=== PATIENT | female | born 1960 | race American Indian/Alaskan Native ===

== ENCOUNTER 2017-01-10 19:59 | Observation (INO) | payer MEDICARE, MEDICAID ==
[2017-01-10 19:59] VITALS: BMI 42.4
--- NOTE | 2017-01-10 20:34 | C.PDOC ---
History Of Present Illness Patient presents to the ED with complaints of chest pain and palpitations while watching TV. Patient atkinson a history of two ablations and cardiac catheter. Patient describes similar episode in the past and denies fever, chills, nausea, or diarrhea. Time Seen by Provider: 01/10/17 20:33 Chief Complaint (Nursing): Chest Pain History Per: Patient History/Exam Limitations: no limitations Onset/Duration Of Symptoms: Hrs Current Symptoms Are (Timing): Still Present Severity: Mild Pain Scale Rating Of: 4 Quality: "Pain" Associated Symptoms: denies: Nausea Alleviating Factors: None Recent travel outside of the [place]: No Additional History Per: Family, Prior Records Past Medical History Reviewed: Historical Data, Nursing Documentation, Vital Signs Vital Signs: Last Vital Signs Temp 98.2 F 01/10/17 20:22 Pulse 92 H 01/10/17 20:57 Resp 16 01/10/17 20:22 BP 108/69 01/10/17 20:22 Pulse Ox 97 01/10/17 21:02 - Medical History PMH: Anxiety, Arthritis (hands), CAD, Cardia Arrhythmia, CHF, COPD, Depression, Diabetes (hypoglycemia), Gastritis, Gall Bladder Disease, HTN, Hypercholesterolemia Surgical History: Cholecystectomy, Coronary Stent (x2) Family History: States: No Known Family Hx - Social History Hx Tobacco Use: Yes (QUIT) Hx Alcohol Use: No Hx Substance Use: No - Immunization History Hx Tetanus Toxoid Vaccination: No Hx Influenza Vaccination: No Hx Pneumococcal Vaccination: No Review Of Systems Constitutional: Negative for: Fever, Chills Eyes: Negative for: Vision Change ENT: Negative for: Throat Pain Cardiovascular: Positive for: Chest Pain, Palpitations Respiratory: Negative for: Cough, Shortness of Breath Gastrointestinal: Negative for: Vomiting, Abdominal Pain, Diarrhea Genitourinary: Negative for: Dysuria Musculoskeletal: Negative for: Back Pain Skin: Negative for: Rash, Lesions, Jaundice, Bruising Neurological: Negative for: Weakness Psych: Negative for: Anxiety Physical Exam - Physical Exam Appears: Non-toxic, No Acute Distress, Other (Patient is slightly obese) Skin: Warm, Dry Head: Atraumatic Eye(s): bilateral: Normal Inspection Oral Mucosa: Moist Neck: Supple Chest: Symmetrical Cardiovascular: Rhythm Regular Respiratory: No Rales, No Rhonchi, No Stridor, No Wheezing Gastrointestinal/Abdominal: Soft, No Tenderness, No Distention, No Guarding, No Rebound Back: Normal Inspection Extremity: Normal ROM, No Tenderness Extremity: Bilateral: Atraumatic, Normal Color And Temperature, Normal ROM Neurological/Psych: Oriented x3, Normal Speech, Normal Cognition Gait: Steady ED Course And Treatment - Laboratory Results Result Diagrams: 01/10/17 20:48 01/10/17 20:48 ECG: Interpreted By Me, Viewed By Me ECG Rhythm: Sinus Rhythm (85), Nonspecific Changes O2 Sat by Pulse Oximetry: 97 Pulse Ox Interpretation: Normal - Radiology CXR: Interpreted by Me, Viewed By Me CXR Interpretation: Yes: Other (unchanged from 10/10). No: Infiltrates, Fracture , Pnemothorax Disposition Discussed With Dr.: Miller Reddy Jr. Comment: accepted the pt on his service and took over the care at 9:29 PM Doctor Will See Patient In The: ED Counseled Patient/Family Regarding: Studies Performed, Diagnosis - Disposition Disposition: HOSPITALIZED Disposition Time: 20:34 Condition: FAIR - POA Present On Arrival: None - Clinical Impression Clinical Impression: Chest pain, Palpitations - Scribe Statement The provider has reviewed the documentation as recorded by the Scribe Melania Doherty All medical record entries made by the Scribe were at my direction and personally dictated by me. I have reviewed the chart and agree that the record accurately reflects my personal performance of the history, physical exam, medical decision making, and the department course for this patient. I have also personally directed, reviewed, and agree with the discharge instructions and disposition. Decision To Admit - Pt Status Changed To: Hospital Disposition Of: Observation - . Bed Request Type: Telemetry Admitting Physician: Miller Reddy Jr. Patient Diagnosis: Chest pain, Palpitations
[2017-01-10 20:57] LABS: BASO # 0.1 K/uL (0.0-0.2); BASO % 0.8 % (0.0-2.0); EOS # 0.3 K/uL (0.0-0.7); EOS % 3.6 % (0.0-4.0); HEMATOCRIT 28.8 % (34.0-47.0); LYMPH # 2.6 K/uL (1.0-4.3); MEAN CORPUSCULAR HEMOGLOBIN 24.6 pg (27.0-31.0); MEAN CORPUSCULAR HGB CONC 31.2 g/dL (33.0-37.0); MEAN PLATELET VOLUME 9.5 fL (7.2-11.7); MONO # 0.4 K/uL (0.0-0.8); MONO % 5.9 % (0.0-10.0); NRBC % 0.1 % (0.0-2.0); RED CELL DISTRIBUTION WIDTH 15.9 % (11.5-14.5); WHITE BLOOD COUNT 7.6 K/uL (4.8-10.8)
[2017-01-10 21:02] LABS: CHLORIDE 100 mmol/L (98-107); POTASSIUM 3.6 mmol/L (3.6-5.2); SODIUM 138 mmol/L (132-148)
[2017-01-10] MEDS ORDERED: Aspirin 325 mg EC Tablets PO ONE (21:02)
[2017-01-10 21:04] LABS: BILIRUBIN,TOTAL 0.6 mg/dL (0.2-1.3); CARBON DIOXIDE 25 mmol/L (22-30); GFR AFRICAN-AMERICAN > 60
[2017-01-10 21:05] LABS: ALB/GLOB RATIO 1.1 (1.0-2.1); ALKALINE PHOSPHATASE 82 U/L (38-126); ALT/SGPT 27 U/L (9-52); AST/SGOT 19 U/L (14-36); BLOOD UREA NITROGEN 16 mg/dL (7-17); CALCIUM 9.3 mg/dl (8.6-10.4); GLUCOSE,RANDOM 106 mg/dL (65-105); TOTAL PROTEIN 7.7 g/dL (6.3-8.3)
[2017-01-10 21:48] LABS: INR 1.1
[2017-01-10 21:58] LABS: THYROID STIMULATING HORMONE 2.33 mIU/L (0.46-4.68)
[2017-01-10] MEDS ORDERED: Albuterol HFA 90 mcg/actuation (8 g) IH PRN (22:30)
--- NOTE | 2017-01-11 00:17 | CP.PCM.HP ---
History of Present Illness - History of Present Illness History of Present Illness: cc: chest pain and palpitations HPI: Patient is a 56yo female with extensive past medical history that includes afib s/p 2 ablations, COPD, hypertension, DM type 2, asthma and anxiety who presents to the ED with complaint of chest pain and palpitations. She states she was sitting up, watching TV when she developed a sharp substernal and right sided chest pain that lasted only a moment. She reports it did not radiated into the arm or neck. She developed momentary SOB and palpitations so she called 911. In the ambulance she was told she was tachycardic. On evaluation, the chest pain had resolved; however, the patient appeared anxious and stated she was not going to cry. She reports being afraid and tired of feeling like this. She has been watching her diet and trying to exercise more. She has not been lifting heavy objects. When palpating on her chest, she reports similar pains. She denied focal weakness, numbness, tingling, dysuria, frequency, urgency, fever, chills, cough. PMD: Dr. Reddy PMHx: As above PSHx: Cholecystectomy, Tubal ligation, Cardiac Cath, 2 cardiac ablations Family Hx: Noncontributory Social Hx: Former smoker (1ppd for approximately 30yrs, quit in 2007); Denies alcohol and illicit drug use Allergies: NKDA P Present on Admission - Present on Admission Any Indicators Present on Admission: No Review of Systems - Constitutional Constitutional: absent: Chills, Fever, Weakness - EENT Eyes: absent: Change in Vision, Diplopia Ears: absent: Decreased Hearing, Tinnitus Nose/Mouth/Throat: absent: Dysphagia, Hoarsness, Odynophagia - Cardiovascular Cardiovascular: Chest Pain, Palpitations. absent: Dyspnea, Edema, Pain Radiating to Arm/Neck/Jaw - Respiratory Respiratory: absent: Cough, Dyspnea - Gastrointestinal Gastrointestinal: Constipation. absent: Diarrhea, Nausea, Vomiting - Genitourinary Genitourinary: absent: Dysuria - Reproductive: Female Reproductive:Female: Post Menopausal - Menstruation Menstruation: Post Menopausal - Musculoskeletal Musculoskeletal: absent: Muscle Weakness, Neck Pain, Numbness, Tingling - Integumentary Integumentary: absent: Lesions, Rash, Wounds - Neurological Neurological: absent: Dizziness, Numbness, Weakness - Psychiatric Psychiatric: Anxiety. absent: Depression - Endocrine Endocrine: Fatigue Past Patient History - Infectious Disease Hx of Infectious Diseases: None - Tetanus Immunizations Tetanus Immunization: Unknown - Past Medical History & Family History Past Medical History?: Yes - Past Social History Smoking Status: Former Smoker Alcohol: None Drugs: Denies Home Situation {Lives}: With Family - CARDIAC Hx Cardia Arrhythmia: Yes Hx Congestive Heart Failure: Yes Hx Hypercholesterolemia: Yes Hx Hypertension: Yes - PULMONARY Hx Chronic Obstructive Pulmonary Disease (COPD): Yes - NEUROLOGICAL HX Cerebrovascular Accident: Yes - HEENT Hx HEENT Problems: No - RENAL Hx Chronic Kidney Disease: No - ENDOCRINE/METABOLIC Hx Endocrine Disorders: Yes Hx Diabetes Mellitus Type 1: Yes - HEMATOLOGICAL/ONCOLOGICAL Hx Blood Disorders: No - INTEGUMENTARY Hx Eczema: Yes - MUSCULOSKELETAL/RHEUMATOLOGICAL Hx Arthritis: Yes (hands) - GASTROINTESTINAL Hx Gall Bladder Disease: Yes Hx Gastritis: Yes - GENITOURINARY/GYNECOLOGICAL Hx Genitourinary Disorders: No - PSYCHIATRIC Hx Anxiety: Yes Hx Depression: Yes Hx Substance Use: No - SURGICAL HISTORY Hx Cholecystectomy: Yes Hx Coronary Stent: Yes (x2) - ANESTHESIA Hx Anesthesia: Yes Hx Anesthesia Reactions: No Meds Allergies/Adverse Reactions: Allergies Allergy/AdvReac Type Severity Reaction Status Date / Time Flu vaccine Allergy Uncoded 01/10/17 20:32 pnuemonia vaccine Allergy Uncoded 01/10/17 20:32 Physical Exam - Constitutional Appears: Non-toxic, No Acute Distress, Other (anxious) - Head Exam Head Exam: ATRAUMATIC, NORMOCEPHALIC - Eye Exam Eye Exam: EOMI, Normal appearance, PERRL Pupil Exam: NORMAL ACCOMODATION, PERRL - ENT Exam ENT Exam: Mucous Membranes Moist, Normal Oropharynx - Neck Exam Neck exam: Positive for: Normal Inspection. Negative for: Tenderness, Thyromegaly - Respiratory Exam Respiratory Exam: Chest Wall Tenderness (right side of sternum), Clear to Auscultation Bilateral, NORMAL BREATHING PATTERN. absent: Rales, Rhonchi, Wheezes - Cardiovascular Exam Cardiovascular Exam: REGULAR RHYTHM, +S1, +S2. absent: Gallop, Rubs, Systolic Murmur - GI/Abdominal Exam GI & Abdominal Exam: Soft. absent: Normal Bowel Sounds, Tenderness - Extremities Exam Extremities exam: Positive for: normal capillary refill, normal inspection, pedal pulses present. Negative for: pedal edema, tenderness - Back Exam Back exam: NORMAL INSPECTION. absent: rash noted, tenderness - Neurological Exam Neurological exam: Alert, CN II-XII Intact, Oriented x3 - Psychiatric Exam Psychiatric exam: Anxious - Skin Skin Exam: Dry, Intact, Normal Color, Warm Results - Vital Signs Recent Vital Signs: Last Vital Signs Temp 97.7 F 01/10/17 22:38 Pulse 77 01/10/17 22:38 Resp 16 01/10/17 22:38 BP 014/61 L 01/10/17 22:38 Pulse Ox 97 01/10/17 22:38 - Labs Result Diagrams: 01/10/17 20:48 01/10/17 20:48 Labs: Laboratory Results - last 24 hr 01/10/17 21:30 PT 12.8 H INR 1.1 APTT 28 Assessment & Plan - Assessment and Plan (Free Text) Assessment: 56yo female with history of DM2, COPD, Asthma, afib presents c/o chest pain and palpitations. Plan: Chest Pain -EKG normal sinus rhythm 85 bpm, old septal infarct, no acute ST-T wave changes n -Troponin negative -TSH wnl -CXR revealed no active disease f/u official report -F/U lipid profile and repeat troponins -Continue ASA -Continue flecainaide -Continue Diltiazem -Place on tele -F/U repeat EKG Diabetes mellitus type 2 -Diet controlled; placed on heart healthy, low carb diet -Fingersticks ACHS -Hgb 10-18-16 5.4 Hx of COPD/Asthma -Continue albuterol PRN -Continue singulair -Continue advair PRN GERD -Continue protonix/sucralfate Anxiety -Continue Clonazepam/Klonopin -PRN Ativan GI/DVT Prophylaxis -Protonix/Lovenox -SCD's
[2017-01-11] MEDS: POLYETHYLENE GLYCOL 3350 17 GM/Dose PACKET PO SCH ×2 (01:00→09:37)
--- NOTE | 2017-01-11 07:24 | RAD ---
HISTORY: r/o infiltrate COMPARISON: 10/17/2016 FINDINGS: LUNGS: Mild venous congestion. Right hilar prominence. PLEURA: No significant pleural effusion identified, no pneumothorax apparent. CARDIOVASCULAR: Normal. OSSEOUS STRUCTURES: No significant abnormalities. VISUALIZED UPPER ABDOMEN: Normal. OTHER FINDINGS: None. IMPRESSION: Mild venous congestion. Right hilar prominence.
[2017-01-11 08:27] LABS: BASO # 0.1 K/uL (0.0-0.2); BASO % 0.8 % (0.0-2.0); EOS # 0.3 K/uL (0.0-0.7); EOS % 4.5 % (0.0-4.0); HEMATOCRIT 33.9 % (34.0-47.0); LYMPH # 2.3 K/uL (1.0-4.3); LYMPH % 31.9 % (20.0-40.0); MEAN CELL VOLUME 77.6 fL (81.0-99.0); MEAN CORPUSCULAR HEMOGLOBIN 24.6 pg (27.0-31.0); MEAN CORPUSCULAR HGB CONC 31.7 g/dL (33.0-37.0); MEAN PLATELET VOLUME 9.3 fL (7.2-11.7); MONO # 0.5 K/uL (0.0-0.8); MONO % 6.2 % (0.0-10.0); WHITE BLOOD COUNT 7.3 K/uL (4.8-10.8)
[2017-01-11 08:50] LABS: CHLORIDE 101 mmol/L (98-107)
[2017-01-11 08:51] LABS: POTASSIUM 3.5 mmol/L (3.6-5.2); SODIUM 138 mmol/L (132-148)
[2017-01-11 08:53] LABS: ALB/GLOB RATIO 1.1 (1.0-2.1); ALKALINE PHOSPHATASE 87 U/L (38-126); AST/SGOT 19 U/L (14-36); BILIRUBIN,TOTAL 0.5 mg/dL (0.2-1.3); BLOOD UREA NITROGEN 18 mg/dL (7-17); CARBON DIOXIDE 26 mmol/L (22-30); CHOLESTEROL 170 mg/dL (0-199); GFR AFRICAN-AMERICAN > 60; GLUCOSE,RANDOM 102 mg/dL (65-105); TOTAL PROTEIN 7.5 g/dL (6.3-8.3)
[2017-01-11 08:54] LABS: ALT/SGPT 27 U/L (9-52)
[2017-01-11] MEDS: Pantoprazole 20 mg EC Tab PO SCH (09:37)
[2017-01-11] MEDS ORDERED: TELMISARTAN PO SCH (10:00)
[2017-01-11] MEDS ORDERED: HYDROCHLOROTHIAZID PO SCH (10:00)
[2017-01-11] MEDS ORDERED: Pantoprazole 20 mg EC Tab PO SCH (10:00)
[2017-01-11] MEDS ORDERED: Potassium Chloride 20 mEq ER Tab PO ONE (10:27)
--- NOTE | 2017-01-11 14:56 | CP.PCM.PN ---
Subjective - Date & Time of Evaluation Date of Evaluation: 01/11/17 Time of Evaluation: 09:00 - Subjective Subjective: PGY2 on medicine Dr. Reddy service: Pt seen and examined at bedside this morning. Pt reports right sided chest pain persisted and worse when it was pressed. Pt said she takes Cardizem 60mg PO BID at home in addition to Micardis and Lopressor. Pt said her DM is controlled with diet only and not currently taking Metformin at home. Pt has no other complaints otherwise. Objective - Vital Signs/Intake and Output Vital Signs (last 24 hours): Temp Pulse Resp BP Pulse Ox 97.7 F 92 H 20 105/71 98 01/11/17 14:07 01/11/17 14:07 01/11/17 14:07 01/11/17 14:07 01/11/17 14:07 - Medications Medications: Current Medications Acetaminophen (Tylenol 325mg Tab) 650 mg PO Q6 PRN PRN Reason: Fever >100.4 F Albuterol (Ventolin Hfa 90 Mcg/Actuation (8 G)) 2 puff IH RQ6 PRN PRN Reason: Cough Aspirin (Ecotrin) 81 mg PO DAILY [facility] Last Admin: 01/11/17 09:37 Dose: 81 mg Clonazepam (Klonopin) 1 mg PO TID [facility] Last Admin: 01/11/17 14:09 Dose: 1 mg Ferrous Sulfate (Feosol) 325 mg PO BID [facility] Last Admin: 01/11/17 09:37 Dose: 325 mg Heparin Sodium (Porcine) (Heparin) 5,000 units SC Q8 [facility] Last Admin: 01/11/17 14:12 Dose: 5,000 units Home Med (Flecainide [Tambocor]) 50 mg PO Q12 [facility] Hydrochlorothiazide (Hydrodiuril) 25 mg PO DAILY [facility] Last Admin: 01/11/17 10:36 Dose: Not Given Ibuprofen (Motrin Tab) 400 mg PO Q6 PRN PRN Reason: Pain, Mild (1-3) Last Admin: 01/10/17 23:40 Dose: 400 mg Lorazepam (Ativan) 1 mg IVP Q6H PRN PRN Reason: Anxiety Losartan Potassium (Cozaar) 50 mg PO BID [facility] Last Admin: 01/11/17 09:37 Dose: 50 mg Metformin HCl (Glucophage) 500 mg PO DAILY [facility] Last Admin: 01/11/17 09:38 Dose: Not Given Metoprolol Tartrate (Lopressor) 12.5 mg PO Q12 [facility] Last Admin: 01/11/17 09:37 Dose: 12.5 mg Montelukast Sodium (Singulair) 10 mg PO HS [facility] Ondansetron HCl (Zofran Inj) 4 mg IVP Q6 PRN PRN Reason: Nausea/Vomiting Pantoprazole Sodium (Protonix Ec Tab) 20 mg PO DAILY [facility] Last Admin: 01/11/17 09:37 Dose: 20 mg Polyethylene Glycol (Miralax) 17 gm PO DAILY [facility] Last Admin: 01/11/17 09:37 Dose: 17 gm Sucralfate (Carafate Tab) 1 gm PO TID [facility] Last Admin: 01/11/17 14:09 Dose: 1 gm - Labs Labs: 01/11/17 08:12 01/11/17 08:12 PT 12.8 SECONDS (9.7-12.2) H 01/10/17 21:30 INR 1.1 01/10/17 21:30 APTT 28 SECONDS (21-34) 01/10/17 21:30 - Constitutional Appears: Non-toxic, No Acute Distress - Head Exam Head Exam: NORMAL INSPECTION, NORMOCEPHALIC - Eye Exam Eye Exam: Normal appearance Pupil Exam: NORMAL ACCOMODATION - Respiratory Exam Respiratory Exam: Chest Wall Tenderness, Clear to Ausculation Bilateral, NORMAL BREATHING PATTERN. absent: Rhonchi, Wheezes - Cardiovascular Exam Cardiovascular Exam: REGULAR RHYTHM, +S1, +S2. absent: Gallop, Rubs - GI/Abdominal Exam GI & Abdominal Exam: Soft, Normal Bowel Sounds - Extremities Exam Extremities Exam: absent: Pedal Edema - Neurological Exam Neurological Exam: Alert, Awake, Oriented x3 - Psychiatric Exam Psychiatric exam: Normal Mood - Skin Skin Exam: Intact Assessment and Plan - Assessment and Plan (Free Text) Assessment: 56yo female with history of DM2, COPD, Asthma, afib presents c/o chest pain and palpitations. Plan: Chest Pain -EKG normal sinus rhythm 85 bpm, old septal infarct, no acute ST-T wave changes n -Troponin negative -TSH wnl -CXR revealed no active disease f/u official report -Continue ASA -Continue flecainaide -Continue Diltiazem -Place on tele -ANGELIKA negative x3 -lipid panel negative Diabetes mellitus type 2 -Diet controlled; placed on heart healthy, low carb diet -Fingersticks ACHS -A1c 10-18-16 5.4 Hx of COPD/Asthma -Continue albuterol PRN -Continue singulair -Continue advair PRN GERD -Continue protonix/sucralfate Anxiety -Continue Clonazepam/Klonopin -PRN Ativan GI/DVT Prophylaxis -Protonix/Lovenox -SCD's
[2017-01-12 07:04] LABS: BASO # 0.1 K/uL (0.0-0.2); BASO % 1.3 % (0.0-2.0); EOS # 0.4 K/uL (0.0-0.7); EOS % 5.6 % (0.0-4.0); HEMATOCRIT 33.8 % (34.0-47.0); LYMPH # 2.6 K/uL (1.0-4.3); MEAN CELL VOLUME 77.4 fL (81.0-99.0); MEAN CORPUSCULAR HEMOGLOBIN 25.1 pg (27.0-31.0); MEAN CORPUSCULAR HGB CONC 32.4 g/dL (33.0-37.0); MEAN PLATELET VOLUME 8.6 fL (7.2-11.7); MONO # 0.5 K/uL (0.0-0.8); MONO % 7.7 % (0.0-10.0); NRBC % 0.1 % (0.0-2.0); RED CELL DISTRIBUTION WIDTH 15.9 % (11.5-14.5); WHITE BLOOD COUNT 6.3 K/uL (4.8-10.8)
[2017-01-12 07:14] LABS: CHLORIDE 101 mmol/L (98-107); POTASSIUM 3.9 mmol/L (3.6-5.2); SODIUM 137 mmol/L (132-148)
[2017-01-12 07:16] LABS: ALKALINE PHOSPHATASE 83 U/L (38-126); AST/SGOT 15 U/L (14-36); BILIRUBIN,TOTAL 0.5 mg/dL (0.2-1.3); CARBON DIOXIDE 25 mmol/L (22-30); GFR AFRICAN-AMERICAN > 60; TOTAL PROTEIN 7.1 g/dL (6.3-8.3)
[2017-01-12 07:17] LABS: ALT/SGPT 23 U/L (9-52); BLOOD UREA NITROGEN 18 mg/dL (7-17); CALCIUM 8.5 mg/dl (8.6-10.4); GLUCOSE,RANDOM 97 mg/dL (65-105)
--- NOTE | 2017-01-12 07:27 | CP.PCM.PN ---
<Kit Vieiraima - Last Filed: 01/12/17 14:34> Subjective - Date & Time of Evaluation Date of Evaluation: 01/12/17 Time of Evaluation: 08:15 - Subjective Subjective: PGY1 Medicine note for Dr. Reddy Pt seen and examined at bedside. Nursing reports that she had one episode of tachycardia this morning while cleaning up in the bathroom and pt said she felt palpitaions. Tachycardia resolved when the pt got back in bed. Today, pt is tearful but in no acute distress. She states that she is frustrated to be in the hospital again. Pt reports one episode of nonbloody, nonbilious vomiting this morning after breakfast. At this time she has no complaints, but she says the thought that the palpitations could happen at any time gives her anxiety. Pt denies fever, chills, headache, dizziness, chest pain, palpitations, shortness of breath, nausea, vomiting, bowel/bladder pain, or leg swelling. Objective - Vital Signs/Intake and Output Vital Signs (last 24 hours): Temp Pulse Resp BP Pulse Ox 98.5 F 73 20 103/69 97 01/11/17 23:15 01/11/17 23:55 01/11/17 23:15 01/11/17 23:15 01/11/17 23:15 Intake and Output: 01/12/17 01/12/17 06:59 18:59 Intake Total 350 Balance 350 - Medications Medications: Current Medications Acetaminophen (Tylenol 325mg Tab) 650 mg PO Q6 PRN PRN Reason: Fever >100.4 F Albuterol (Ventolin Hfa 90 Mcg/Actuation (8 G)) 2 puff IH RQ6 PRN PRN Reason: Cough Aspirin (Ecotrin) 81 mg PO DAILY [facility] Last Admin: 01/11/17 09:37 Dose: 81 mg Clonazepam (Klonopin) 1 mg PO TID [facility] Last Admin: 01/11/17 20:11 Dose: 1 mg Ferrous Sulfate (Feosol) 325 mg PO BID [facility] Last Admin: 01/11/17 17:53 Dose: 325 mg Heparin Sodium (Porcine) (Heparin) 5,000 units SC Q8 [facility] Last Admin: 01/12/17 07:08 Dose: 5,000 units Home Med (Flecainide [Tambocor]) 50 mg PO Q12 [facility] Hydrochlorothiazide (Hydrodiuril) 25 mg PO DAILY [facility] Last Admin: 01/11/17 10:36 Dose: Not Given Ibuprofen (Motrin Tab) 400 mg PO Q6 PRN PRN Reason: Pain, Mild (1-3) Last Admin: 01/10/17 23:40 Dose: 400 mg Lorazepam (Ativan) 1 mg IVP Q6H PRN PRN Reason: Anxiety Losartan Potassium (Cozaar) 50 mg PO BID [facility] Last Admin: 01/11/17 17:58 Dose: Not Given Metformin HCl (Glucophage) 500 mg PO DAILY [facility] Last Admin: 01/11/17 09:38 Dose: Not Given Metoprolol Tartrate (Lopressor) 12.5 mg PO Q12 [facility] Last Admin: 01/11/17 22:09 Dose: 12.5 mg Montelukast Sodium (Singulair) 10 mg PO HS [facility] Last Admin: 01/11/17 22:10 Dose: 10 mg Ondansetron HCl (Zofran Inj) 4 mg IVP Q6 PRN PRN Reason: Nausea/Vomiting Pantoprazole Sodium (Protonix Ec Tab) 20 mg PO DAILY [facility] Last Admin: 01/11/17 09:37 Dose: 20 mg Polyethylene Glycol (Miralax) 17 gm PO DAILY [facility] Last Admin: 01/11/17 09:37 Dose: 17 gm Sucralfate (Carafate Tab) 1 gm PO TID [facility] Last Admin: 01/11/17 17:52 Dose: 1 gm - Labs Labs: 01/12/17 06:54 01/12/17 06:54 PT 12.8 SECONDS (9.7-12.2) H 01/10/17 21:30 INR 1.1 01/10/17 21:30 APTT 28 SECONDS (21-34) 01/10/17 21:30 - Constitutional Appears: Non-toxic, No Acute Distress - Head Exam Head Exam: NORMAL INSPECTION - Eye Exam Eye Exam: Normal appearance. absent: Conjunctival injection, Scleral icterus - ENT Exam ENT Exam: Mucous Membranes Moist - Neck Exam Neck Exam: Full ROM, Normal Inspection. absent: Lymphadenopathy, Tenderness - Respiratory Exam Respiratory Exam: Decreased Breath Sounds (likely secondary to body habitus), Clear to Ausculation Bilateral, NORMAL BREATHING PATTERN. absent: Accessory Muscle Use, Rales, Rhonchi, Wheezes, Respiratory Distress - Cardiovascular Exam Cardiovascular Exam: REGULAR RHYTHM, RRR, +S1, +S2 Additional comments: chest wall tender to palpation - GI/Abdominal Exam GI & Abdominal Exam: Soft, Tenderness (diffusely all quadrants to palpation), Normal Bowel Sounds. absent: Distended, Firm, Guarding, Rigid - Rectal Exam Rectal Exam: Deferred - Extremities Exam Extremities Exam: Normal Capillary Refill, Normal Inspection. absent: Calf Tenderness, Pedal Edema, Tenderness - Neurological Exam Neurological Exam: Alert, Awake, Oriented x3 - Psychiatric Exam Psychiatric exam: Anxious Additional comments: tearful - Skin Skin Exam: Dry, Intact, Normal Color, Warm Assessment and Plan - Assessment and Plan (Free Text) Assessment: 56yo female with history of DM2, COPD, Asthma, afib presents c/o chest pain and palpitations. Plan: Chest Pain -r/o ACS -Troponin negative x 3 -EKG 01/10/17: Normal sinus rhythm at 66, T wave abnormality (consider anterior ischemia), Abnormal ECG -EKG 5: AM: Normal sinus rhythm at 85, T wave abnormality (consider anterior ischemia), Abnormal ECG -EKG 01/11/17 PM: NSR at 81, Normal EKG -Cardiac Cath 11/14/16: EF 70%, codominant circulation, RCA unremarkable, L main unremarkable, LAD/Diagonals mild intimal irregularities without significant stenosis, Circumflex/Obtuse marginals free of significant disease -Echo 10/17/16: 75% EF, LV fxn normal, no regional wall abnormalities, mild MR -TSH wnl -CXR revealed no active disease f/u official report -ASA 81mg po daily -Motrin 400mg po q6 prn for pain -Place on tele -Dr. Khalil on board Diabetes mellitus type 2 -Diet controlled; placed on heart healthy, low carb diet -Fingersticks ACHS -RISS low dose -f/u repeat HgbA1c Hx of COPD/Asthma -Continue albuterol PRN -Continue singulair 10mg po hs -Continue advair PRN Hx of HTN -Lopressor 12.5mg po q12 -Losartan 50mg po bid -HCTZ 25mg po daily -f/u lipid panel Hx of JOHN -Feosol 325mg po bid Hx of GERD -Sucralfate 1gm po tid Constipation -Miralax 17gm po daily Hx of Anxiety -Continue Clonazepam 1mg po tid -PRN Ativan 1mg IVP q6H Prophylaxis -Protonix 40mg po daily -Heparin 5000U SC Q8 -Zofran 4mg ivp Q6 prn -SCD's -Heart healthy Diet Plan discussed with Dr. Maureen Vieira PGY1 <Miller Reddy Jr. - Last Filed: 01/16/17 11:05> Objective - Vital Signs/Intake and Output Vital Signs (last 24 hours): Temp Pulse Resp BP Pulse Ox 97.3 F L 63 20 115/78 99 01/14/17 07:00 01/14/17 07:00 01/14/17 07:00 01/14/17 07:00 01/14/17 07:00 - Labs Labs: 01/14/17 06:03 01/14/17 06:03 PT 12.8 SECONDS (9.7-12.2) H 01/10/17 21:30 INR 1.1 01/10/17 21:30 APTT 28 SECONDS (21-34) 01/10/17 21:30 Attending/Attestation - Attestation I have personally seen and examined this patient.: Yes I have fully participated in the care of the patient.: Yes I have reviewed all pertinent clinical information, including history, physical exam and plan: Yes Notes (Text): 01/16/17 11:05 Agree with resident note and plan of care
[2017-01-12 07:29] LABS: ALB/GLOB RATIO 1.2 (1.0-2.1)
--- NOTE | 2017-01-12 07:52 | CP.PCM.CON ---
Past Patient History - Infectious Disease Hx of Infectious Diseases: None - Tetanus Immunizations Tetanus Immunization: Unknown - Past Medical History & Family History Past Medical History?: Yes - Past Social History Smoking Status: Former Smoker - CARDIAC Hx Cardia Arrhythmia: Yes Hx Congestive Heart Failure: Yes Hx Hypercholesterolemia: Yes Hx Hypertension: Yes - PULMONARY Hx Chronic Obstructive Pulmonary Disease (COPD): Yes - NEUROLOGICAL HX Cerebrovascular Accident: Yes - HEENT Hx HEENT Problems: No - RENAL Hx Chronic Kidney Disease: No - ENDOCRINE/METABOLIC Hx Endocrine Disorders: Yes Hx Diabetes Mellitus Type 1: Yes - HEMATOLOGICAL/ONCOLOGICAL Hx Blood Disorders: No - INTEGUMENTARY Hx Eczema: Yes - MUSCULOSKELETAL/RHEUMATOLOGICAL Hx Arthritis: Yes (hands) Hx Falls: No - GASTROINTESTINAL Hx Gall Bladder Disease: Yes Hx Gastritis: Yes - GENITOURINARY/GYNECOLOGICAL Hx Genitourinary Disorders: No - PSYCHIATRIC Hx Anxiety: Yes Hx Depression: Yes Hx Substance Use: No - SURGICAL HISTORY Hx Cholecystectomy: Yes Hx Coronary Stent: Yes (x2) - ANESTHESIA Hx Anesthesia: Yes Hx Anesthesia Reactions: No Meds Allergies/Adverse Reactions: Allergies Allergy/AdvReac Type Severity Reaction Status Date / Time Flu vaccine Allergy Uncoded 01/10/17 20:32 pnuemonia vaccine Allergy Uncoded 01/10/17 20:32 - Medications Medications: Current Medications Acetaminophen (Tylenol 325mg Tab) 650 mg PO Q6 PRN PRN Reason: Fever >100.4 F Albuterol (Ventolin Hfa 90 Mcg/Actuation (8 G)) 2 puff IH RQ6 PRN PRN Reason: Cough Aspirin (Ecotrin) 81 mg PO DAILY [facility] Last Admin: 01/11/17 09:37 Dose: 81 mg Clonazepam (Klonopin) 1 mg PO TID [facility] Last Admin: 01/11/17 20:11 Dose: 1 mg Ferrous Sulfate (Feosol) 325 mg PO BID [facility] Last Admin: 01/11/17 17:53 Dose: 325 mg Heparin Sodium (Porcine) (Heparin) 5,000 units SC Q8 [facility] Last Admin: 01/12/17 07:08 Dose: 5,000 units Home Med (Flecainide [Tambocor]) 50 mg PO Q12 [facility] Hydrochlorothiazide (Hydrodiuril) 25 mg PO DAILY [facility] Last Admin: 01/11/17 10:36 Dose: Not Given Ibuprofen (Motrin Tab) 400 mg PO Q6 PRN PRN Reason: Pain, Mild (1-3) Last Admin: 01/10/17 23:40 Dose: 400 mg Lorazepam (Ativan) 1 mg IVP Q6H PRN PRN Reason: Anxiety Losartan Potassium (Cozaar) 50 mg PO BID [facility] Last Admin: 01/11/17 17:58 Dose: Not Given Metformin HCl (Glucophage) 500 mg PO DAILY [facility] Last Admin: 01/11/17 09:38 Dose: Not Given Metoprolol Tartrate (Lopressor) 12.5 mg PO Q12 [facility] Last Admin: 01/11/17 22:09 Dose: 12.5 mg Montelukast Sodium (Singulair) 10 mg PO HS [facility] Last Admin: 01/11/17 22:10 Dose: 10 mg Ondansetron HCl (Zofran Inj) 4 mg IVP Q6 PRN PRN Reason: Nausea/Vomiting Pantoprazole Sodium (Protonix Ec Tab) 20 mg PO DAILY [facility] Last Admin: 01/11/17 09:37 Dose: 20 mg Polyethylene Glycol (Miralax) 17 gm PO DAILY [facility] Last Admin: 01/11/17 09:37 Dose: 17 gm Sucralfate (Carafate Tab) 1 gm PO TID [facility] Last Admin: 01/11/17 17:52 Dose: 1 gm Results - Vital Signs Recent Vital Signs: Last Vital Signs Temp 98.5 F 01/11/17 23:15 Pulse 73 01/11/17 23:55 Resp 20 01/11/17 23:15 BP 103/69 01/11/17 23:15 Pulse Ox 97 01/11/17 23:15 - Labs Result Diagrams: 01/12/17 06:54 01/12/17 06:54 Labs: Laboratory Results - last 24 hr 01/11/17 01/11/17 01/11/17 08:12 08:12 13:49 WBC 7.3 RBC 4.37 Hgb 10.7 L Hct 33.9 L MCV 77.6 L MCH 24.6 L MCHC 31.7 L RDW 16.0 H Plt Count 300 D MPV 9.3 Neut % (Auto) 56.6 Lymph % (Auto) 31.9 Kimball % (Auto) 6.2 Eos % (Auto) 4.5 H Baso % (Auto) 0.8 Neut # 4.1 Lymph # 2.3 Kimball # 0.5 Eos # 0.3 Baso # 0.1 Sodium 138 Potassium 3.5 L Chloride 101 Carbon Dioxide 26 Anion Gap 15 BUN 18 H Creatinine 0.9 Est GFR ( Amer) > 60 Est GFR (Non-Af Amer) > 60 Random Glucose 102 Calcium 9.0 Total Bilirubin 0.5 AST 19 ALT 27 Alkaline Phosphatase 87 Troponin I < 0.0120 < 0.0120 Total Protein 7.5 Albumin 3.9 Globulin 3.6 Albumin/Globulin Ratio 1.1 Triglycerides 77 Cholesterol 170 LDL Cholesterol Direct 89 HDL Cholesterol 36 01/12/17 01/12/17 06:54 06:54 WBC 6.3 RBC 4.36 Hgb 10.9 L Hct 33.8 L MCV 77.4 L MCH 25.1 L MCHC 32.4 L RDW 15.9 H Plt Count 289 MPV 8.6 Neut % (Auto) 44.4 L Lymph % (Auto) 41.0 H Kimball % (Auto) 7.7 Eos % (Auto) 5.6 H Baso % (Auto) 1.3 Neut # 2.8 Lymph # 2.6 Kimball # 0.5 Eos # 0.4 Baso # 0.1 Sodium 137 Potassium 3.9 Chloride 101 Carbon Dioxide 25 Anion Gap 15 BUN 18 H Creatinine 0.9 Est GFR ( Amer) > 60 Est GFR (Non-Af Amer) > 60 Random Glucose 97 Calcium 8.5 L Total Bilirubin 0.5 AST 15 ALT 23 Alkaline Phosphatase 83 Troponin I Total Protein 7.1 Albumin 3.8 Globulin 3.3 Albumin/Globulin Ratio 1.2 Triglycerides Cholesterol LDL Cholesterol Direct HDL Cholesterol
[2017-01-12 10:06] VITALS: RESP 20
[2017-01-12] MEDS: POLYETHYLENE GLYCOL 3350 17 GM/Dose PACKET PO SCH (10:24)
[2017-01-12] MEDS: Pantoprazole 20 mg EC Tab PO SCH (10:24)
--- NOTE | 2017-01-12 12:42 | CP.PCM.CON ---
<Vance Avila - Last Filed: 01/12/17 13:10> History of Present Illness - History of Present Illness History of Present Illness: Cardiology Consult Note for Dr. Simran Avila PGY-1, Internal Medicine HPI: Palpitations and chest pain CC: This is a 56 yo AA F with PMH of Afib s/p ablations x2 (Jun 2016, Aug 2016) , COPD, hypertension, DM type 2, asthma, and anxiety who presented to the ED with complaint of chest pain and palpitations, brought in by ambulance. Patient reports multiple prior episodes of palpitations, with multiple associated hospitalizations (last seen at [facility] on 11/25/16). For this episode, she was reclining at home, watching television, when she developed some chest pain (midline, sharp), and soon began to feel palpitations that did not go away. Patient is very anxious, repeatedly stating that she knows something is wrong with her, and she is tired of feeling this way, and wants help. Her original chest pain was resolved by time of admission, but since yesterday, she has had some mild persistent chest pain and chest wall tenderness to palpation. She denies dizziness, lightheadedness, room-spinning, radiation of pain to neck/jaw/arm, focal weakness, numbness/tingling, or synope/ near-syncope at time of exam. She does admit to severeal episodes of emesis ( non-bloody non-bilious) since yesterday, last episode this AM ~2 hours prior to exam. Also admits to intermittent dizziness and concurrent sense of heart racing, which she believes are due to her multiple medications. Of note, patient is adamant that these problems only really began in earnest after undergoing a second ablation (both done at [facility]) where nothing was found to ablate. She has poor insight into her conditions, and repeatedly is looking for something that will end all of her symptoms; she does not appear to understand the difference between curative treatments and management of chronic conditions/symptoms. She is frequently tearful during exam, and feels that many doctors are just dismissing her symptoms/"walking out on her." PMH: As above PSH: Cardiac ablations x2, Cholecystectomy, Tubal ligation, Cardiac Caths (last on 11/14/16) FHx: Noncontributory SHx: Former smoker (1ppd x ~30yrs, quit in 2007); Denies alcohol, illicits/IVDA PMD: Dr. Reddy Review of Systems - Constitutional Constitutional: Fatigue, Lethargy, Malaise, Weakness. absent: Chills, Fever - EENT Eyes: absent: Blurred Vision, Change in Vision, Loss of Vision Ears: Dizziness (intermittent, no clear exacerbating or relieving factors) Nose/Mouth/Throat: absent: Dysphagia, Sore Throat, Neck Pain - Cardiovascular Cardiovascular: Chest Pain at Rest (began while sitting at home watching TV, resolved by time of admission, recurred starting yesterday), Palpitations ( chronically experiences palpitations, has significant anxiety regarding palpitations, states having them almost weekly). absent: Dyspnea, Dyspnea on Exertion, Pain Radiating to Arm/Neck/Jaw, Lightheadedness, Syncope - Respiratory Respiratory: absent: Cough, Dyspnea, Hemoptysis, Pain on Inspiration - Gastrointestinal Gastrointestinal: Abdominal Pain (x2 days, diffuse mild abdominal pain), Bloating, Nausea, Vomiting (3-4 episodes beginning yesterday, last episode this AM, not triggered by PO intake, non-bloody and non-bilious). absent: Coffee Ground Emesis, Constipation, Diarrhea, Hematemesis - Genitourinary Genitourinary: absent: Dysuria, Flank Pain, Hematuria - Musculoskeletal Musculoskeletal: absent: Deformity, Muscle Weakness, Neck Pain, Numbness - Integumentary Integumentary: absent: Pruritus, Rash - Neurological Neurological: Dizziness, Weakness. absent: Focal Weakness, Loss of Vision, Syncope, Vertigo, Other Visual Disturbances - Psychiatric Psychiatric: Anxiety (generalized anxiety, specifically and significantly anxious regarding palpitations and sense that "something is definitely wrong with me," hx of axiety on anti-anxiety medications) - Endocrine Endocrine: Palpitations. absent: Fatigue Past Patient History - Infectious Disease Hx of Infectious Diseases: None - Tetanus Immunizations Tetanus Immunization: Unknown - Past Medical History & Family History Past Medical History?: Yes - Past Social History Smoking Status: Former Smoker - CARDIAC Hx Cardia Arrhythmia: Yes Hx Congestive Heart Failure: Yes Hx Hypercholesterolemia: Yes Hx Hypertension: Yes - PULMONARY Hx Chronic Obstructive Pulmonary Disease (COPD): Yes - NEUROLOGICAL HX Cerebrovascular Accident: Yes - HEENT Hx HEENT Problems: No - RENAL Hx Chronic Kidney Disease: No - ENDOCRINE/METABOLIC Hx Endocrine Disorders: Yes Hx Diabetes Mellitus Type 1: Yes - HEMATOLOGICAL/ONCOLOGICAL Hx Blood Disorders: No - INTEGUMENTARY Hx Eczema: Yes - MUSCULOSKELETAL/RHEUMATOLOGICAL Hx Arthritis: Yes (hands) Hx Falls: No - GASTROINTESTINAL Hx Gall Bladder Disease: Yes Hx Gastritis: Yes - GENITOURINARY/GYNECOLOGICAL Hx Genitourinary Disorders: No - PSYCHIATRIC Hx Anxiety: Yes Hx Depression: Yes Hx Substance Use: No - SURGICAL HISTORY Hx Cholecystectomy: Yes Hx Coronary Stent: Yes (x2) - ANESTHESIA Hx Anesthesia: Yes Hx Anesthesia Reactions: No Meds Allergies/Adverse Reactions: Allergies Allergy/AdvReac Type Severity Reaction Status Date / Time Flu vaccine Allergy Uncoded 02/15/17 23:20 pnuemonia vaccine Allergy Uncoded 02/15/17 23:20 wool Allergy Uncoded 02/15/17 23:20 - Medications Medications: Current Medications Acetaminophen (Tylenol 325mg Tab) 650 mg PO Q6 PRN PRN Reason: Fever >100.4 F Albuterol (Ventolin Hfa 90 Mcg/Actuation (8 G)) 2 puff IH RQ6 PRN PRN Reason: Cough Aspirin (Ecotrin) 81 mg PO DAILY [facility] Last Admin: 01/12/17 10:25 Dose: 81 mg Clonazepam (Klonopin) 1 mg PO TID [facility] Last Admin: 01/12/17 10:25 Dose: 1 mg Ferrous Sulfate (Feosol) 325 mg PO BID [facility] Last Admin: 01/12/17 10:25 Dose: 325 mg Heparin Sodium (Porcine) (Heparin) 5,000 units SC Q8 [facility] Last Admin: 01/12/17 07:08 Dose: 5,000 units Home Med (Flecainide [Tambocor]) 50 mg PO Q12 [facility] Hydrochlorothiazide (Hydrodiuril) 25 mg PO DAILY [facility] Last Admin: 01/12/17 10:26 Dose: Not Given Ibuprofen (Motrin Tab) 400 mg PO Q6 PRN PRN Reason: Pain, Mild (1-3) Last Admin: 01/10/17 23:40 Dose: 400 mg Lorazepam (Ativan) 1 mg IVP Q6H PRN PRN Reason: Anxiety Losartan Potassium (Cozaar) 50 mg PO BID [facility] Last Admin: 01/12/17 10:25 Dose: 50 mg Metformin HCl (Glucophage) 500 mg PO DAILY [facility] Last Admin: 01/11/17 09:38 Dose: Not Given Metoprolol Tartrate (Lopressor) 12.5 mg PO Q12 [facility] Last Admin: 01/12/17 10:25 Dose: 12.5 mg Montelukast Sodium (Singulair) 10 mg PO HS [facility] Last Admin: 01/11/17 22:10 Dose: 10 mg Ondansetron HCl (Zofran Inj) 4 mg IVP Q6 PRN PRN Reason: Nausea/Vomiting Pantoprazole Sodium (Protonix Ec Tab) 20 mg PO DAILY [facility] Last Admin: 01/12/17 10:24 Dose: 20 mg Polyethylene Glycol (Miralax) 17 gm PO DAILY [facility] Last Admin: 01/12/17 10:24 Dose: 17 gm Sucralfate (Carafate Tab) 1 gm PO TID [facility] Last Admin: 01/12/17 10:24 Dose: 1 gm Physical Exam - Constitutional Appears: Non-toxic, No Acute Distress - Head Exam Head Exam: ATRAUMATIC, NORMAL INSPECTION, NORMOCEPHALIC - Eye Exam Eye Exam: EOMI, Normal appearance. absent: Conjunctival injection, Scleral icterus Pupil Exam: absent: Irregular, Unequal - ENT Exam ENT Exam: Mucous Membranes Moist - Neck Exam Neck exam: Negative for: Lymphadenopathy, Tenderness, Thyromegaly - Respiratory Exam Respiratory Exam: Chest Wall Tenderness (mildine tenderness to palpation, mild static tenderness), Decreased Breath Sounds (mild diffusely decreased breath sounds, possibly 2/2 body habitus), Clear to Auscultation Bilateral, NORMAL BREATHING PATTERN. absent: Accessory Muscle Use, Prolonged Expiratory Phase, Rales, Rhonchi, Wheezes - Cardiovascular Exam Cardiovascular Exam: REGULAR RHYTHM, RRR, +S1, +S2. absent: Bradycardia, Tachycardia, Diastolic murmur, Irregular Rhythm, +S4, Systolic Murmur Additional comments: chest wall tenderness to palpation, mild, most prominent along midline - GI/Abdominal Exam GI & Abdominal Exam: Normal Bowel Sounds, Soft, Tenderness (mild diffuse tenderness to palpation in all quadrants, most prominent epigastrically). absent: Diminished Bowel Sounds, Distended (obese but not distended), Firm, Hyperactive Bowel Sounds, Hypoactive Bowel Sounds, Rigid - Extremities Exam Extremities exam: Negative for: calf tenderness, joint swelling, tenderness - Neurological Exam Additional comments: Awake and alert, oriented x3 (person, place, time), moving in bed and moving all extremities spontaneously, following all commands appropriately - Psychiatric Exam Psychiatric exam: Agitated, Anxious Additional comments: Significant anxiety regarding condition in general and palpitations in specific , concerned that "something is definitely wrong with me." Poor insight into condition, poor insight regarding difference between curative conditions and management of chronic conditions - Skin Skin Exam: Dry, Intact, Normal Color, Warm Results - Vital Signs Recent Vital Signs: Last Vital Signs Temp 97.3 F L 01/12/17 07:45 Pulse 97 H 01/12/17 10:04 Resp 20 01/12/17 10:04 BP 140/71 01/12/17 10:04 Pulse Ox 99 01/12/17 10:04 - Labs Result Diagrams: 01/12/17 06:54 01/12/17 06:54 Labs: Laboratory Results - last 24 hr 01/11/17 01/11/17 01/11/17 02:25 06:44 11:58 WBC RBC Hgb Hct MCV MCH MCHC RDW Plt Count MPV Neut % (Auto) Lymph % (Auto) [place] % (Auto) Eos % (Auto) Baso % (Auto) Neut # Lymph # [place] # Eos # Baso # Sodium Potassium Chloride Carbon Dioxide Anion Gap BUN Creatinine Est GFR ( Amer) Est GFR (Non-Af Amer) POC Glucose (mg/dL) 93 105 103 Random Glucose Calcium Total Bilirubin AST ALT Alkaline Phosphatase Troponin I Total Protein Albumin Globulin Albumin/Globulin Ratio 01/11/17 01/11/17 01/11/17 13:49 16:27 21:28 WBC RBC Hgb Hct MCV MCH MCHC RDW Plt Count MPV Neut % (Auto) Lymph % (Auto) [place] % (Auto) Eos % (Auto) Baso % (Auto) Neut # Lymph # [place] # Eos # Baso # Sodium Potassium Chloride Carbon Dioxide Anion Gap BUN Creatinine Est GFR ( Amer) Est GFR (Non-Af Amer) POC Glucose (mg/dL) 80 88 Random Glucose Calcium Total Bilirubin AST ALT Alkaline Phosphatase Troponin I < 0.0120 Total Protein Albumin Globulin Albumin/Globulin Ratio 01/12/17 01/12/17 01/12/17 06:20 06:54 06:54 WBC 6.3 RBC 4.36 Hgb 10.9 L Hct 33.8 L MCV 77.4 L MCH 25.1 L MCHC 32.4 L RDW 15.9 H Plt Count 289 MPV 8.6 Neut % (Auto) 44.4 L Lymph % (Auto) 41.0 H [place] % (Auto) 7.7 Eos % (Auto) 5.6 H Baso % (Auto) 1.3 Neut # 2.8 Lymph # 2.6 [place] # 0.5 Eos # 0.4 Baso # 0.1 Sodium 137 Potassium 3.9 Chloride 101 Carbon Dioxide 25 Anion Gap 15 BUN 18 H Creatinine 0.9 Est GFR ( Amer) > 60 Est GFR (Non-Af Amer) > 60 POC Glucose (mg/dL) 94 Random Glucose 97 Calcium 8.5 L Total Bilirubin 0.5 AST 15 ALT 23 Alkaline Phosphatase 83 Troponin I Total Protein 7.1 Albumin 3.8 Globulin 3.3 Albumin/Globulin Ratio 1.2 01/12/17 11:45 WBC RBC Hgb Hct MCV MCH MCHC RDW Plt Count MPV Neut % (Auto) Lymph % (Auto) [place] % (Auto) Eos % (Auto) Baso % (Auto) Neut # Lymph # [place] # Eos # Baso # Sodium Potassium Chloride Carbon Dioxide Anion Gap BUN Creatinine Est GFR ( Amer) Est GFR (Non-Af Amer) POC Glucose (mg/dL) 102 Random Glucose Calcium Total Bilirubin AST ALT Alkaline Phosphatase Troponin I Total Protein Albumin Globulin Albumin/Globulin Ratio Assessment & Plan (1) Chest pain Assessment and Plan: EKG 01/10/17: Normal sinus rhythm at 66, T wave abnormality (consider anterior ischemia), Abnormal ECG EKG AM: Normal sinus rhythm at 85, T wave abnormality (consider anterior ischemia), Abnormal ECG EKG 01/11/17 PM: NSR at 81, Normal EKG Cardiac Cath 11/14/16: EF 70%, codominant circulation, RCA unremarkable, L main unremarkable, LAD/Diagonals mild intimal irregularities without significant stenosis, Circumflex/Obtuse marginals free of significant disease Echo 10/17/16: 75% EF, LV fxn normal, no regional wall abnormalities, mild MR Trops negative x3 -Anxiety vs paroxysmal Afib vs 2/2 GERD flare, less likely ACS given NSR EKGs and negative trops x3 -Definitely significant anxiety component involved, pt frequently tearful and anxious during interview and exam -Patient also reports multiple recent episodes of emesis, concurrent with resumption of chest pain -Chest pain reproducible on exam, more likely musculoskeletal or 2/2 GERD than ACS -Recent cardiac cath (as above), no indication for repeat at this time -Continue medical management -Continue telemetry monitoring Status: Acute (2) Palpitations Assessment and Plan: EKG 01/10/17: Normal sinus rhythm at 66, T wave abnormality (consider anterior ischemia), Abnormal ECG EKG 5: AM: Normal sinus rhythm at 85, T wave abnormality (consider anterior ischemia), Abnormal ECG EKG 01/11/17 PM: NSR at 81, Normal EKG Cardiac Cath 11/14/16: EF 70%, codominant circulation, RCA unremarkable, L main unremarkable, LAD/Diagonals mild intimal irregularities without significant stenosis, Circumflex/Obtuse marginals free of significant disease Echo 10/17/16: 75% EF, LV fxn normal, no regional wall abnormalities, mild MR Trops negative x3 -Anxiety vs paroxysmal Afib vs 2/2 GERD flare, less likely ACS given NSR EKGs and negative trops x3 -Definitely significant anxiety component involved, pt frequently tearful and anxious during interview and exam -Agreed with Medicine team on consulting Psych, appreciate their input -Recent cardiac cath (as above), no indication for repeat at this time -Continue medical management -Continue telemetry monitoring Status: Chronic (3) HTN (hypertension) Assessment and Plan: -Anxiety vs inadequate medical control vs medication non-compliance -Definitely significant anxiety component involved, pt frequently tearful and anxious during interview and exam -Patient states compliant with all medications, but is convinced her medications are causing some of her symptoms (dizziness, lightheadedness, palpitations) -Agreed with Medicine team on consulting Psych, appreciate their input -Continue medical management: continue home Lopressor, Flecanide, HCTZ, Losartan -Currently controlled, SBP 110's-140's, continue to monitor Status: Chronic - Assessment and Plan (Free Text) Assessment: Case discussed with Dr. Khalil. <Farrukh Khalil - Last Filed: 02/16/17 05:34> Results - Vital Signs Recent Vital Signs: Last Vital Signs Temp 97.3 F L 01/14/17 07:00 Pulse 63 01/14/17 07:00 Resp 20 01/14/17 07:00 BP 115/78 01/14/17 07:00 Pulse Ox 99 01/14/17 07:00 - Labs Result Diagrams: 01/14/17 06:03 01/14/17 06:03 Attending/Attestation - Attestation I have personally seen and examined this patient.: Yes I have fully participated in the care of the patient.: Yes I have reviewed all pertinent clinical information: Yes Notes (Text): 02/16/17 05:34 will ask psych for input
--- NOTE | 2017-01-12 14:15 | CARD ---
APPROVED REPORT EKG Measurement Heart [id number] [id number] <Conclusion> Normal sinus rhythm baseline artifacts Abnormal ECG
--- NOTE | 2017-01-12 14:15 | CARD ---
APPROVED REPORT EKG Measurement Heart [id number] CT [id number] <Conclusion> Normal sinus rhythm Normal ECG
--- NOTE | 2017-01-12 14:16 | CARD ---
APPROVED REPORT EKG Measurement Heart [id number] [place] 170P22 [id number] <Conclusion> Normal sinus rhythm Possible Inferior infarct, age undetermined Abnormal ECG
[2017-01-12] MEDS: (Novolog) Insulin Aspart, Recombinant 100 u/ml 10 ml vial SC SCH ×2 (16:30→22:00)
[2017-01-12] MEDS: FLECAINIDE 50 MG PO SCH (21:37)
--- NOTE | 2017-01-13 07:05 | CP.PCM.PN ---
<Barbara Vieira - Last Filed: 01/13/17 14:12> Subjective - Date & Time of Evaluation Date of Evaluation: 01/13/17 Time of Evaluation: 08:00 - Subjective Subjective: PGY1 Medicine note for Dr. Reddy Patient seen and examined at bedside. Patient was tearful this AM and cried through the interview. Nursing reported no adverse events overnight and that she slept through the night although patient reports she did not sleep well. Patient voiced her frustration with her medical history and how it was overwhelming her. She states she had one episode of "her heart beating fast" yesterday, but telemetry shows no changes indicative of Afib. Pt has no acute physical complaints at this time, but continues to feel overwhelmingly anxious and distraught. Pt denies fever, chills, headache, dizziness, chest pain, palpitations, shortness of breath, cough, abdominal pain, nausea, vomiting, bladder complaint, or leg swelling. Patient did admit to some constipation. She continually stated that she was willing to talk to somebody about her "nerves." Patent has been eating well and has been encouraged to ambulate. Objective - Vital Signs/Intake and Output Vital Signs (last 24 hours): Temp Pulse Resp BP Pulse Ox 97.9 F 70 20 96/60 L 97 01/12/17 23:25 01/13/17 00:51 01/12/17 23:25 01/12/17 23:25 01/12/17 23:25 - Medications Medications: Current Medications Acetaminophen (Tylenol 325mg Tab) 650 mg PO Q6 PRN PRN Reason: Fever >100.4 F Albuterol (Ventolin Hfa 90 Mcg/Actuation (8 G)) 2 puff IH RQ6 PRN PRN Reason: Cough Aspirin (Ecotrin) 81 mg PO DAILY [facility] Last Admin: 01/12/17 10:25 Dose: 81 mg Clonazepam (Klonopin) 1 mg PO TID [facility] Last Admin: 01/12/17 19:04 Dose: 1 mg Ferrous Sulfate (Feosol) 325 mg PO BID [facility] Last Admin: 01/12/17 17:27 Dose: 325 mg Heparin Sodium (Porcine) (Heparin) 5,000 units SC Q8 [facility] Last Admin: 01/13/17 06:32 Dose: 5,000 units Home Med (Patient's Own Medication) 1 tab PO Q12H [facility] Last Admin: 01/12/17 21:37 Dose: 1 tab Hydrochlorothiazide (Hydrodiuril) 25 mg PO DAILY [facility] Last Admin: 01/12/17 10:26 Dose: Not Given Ibuprofen (Motrin Tab) 400 mg PO Q6 PRN PRN Reason: Pain, Mild (1-3) Last Admin: 01/12/17 21:38 Dose: 400 mg Insulin Aspart (Novolog) 0 unit SC ACHS [facility] PRN Reason: Protocol Last Admin: 01/12/17 22:00 Dose: Not Given Lorazepam (Ativan) 1 mg IVP Q6H PRN PRN Reason: Anxiety Losartan Potassium (Cozaar) 50 mg PO BID [facility] Last Admin: 01/12/17 17:31 Dose: Not Given Metoprolol Tartrate (Lopressor) 12.5 mg PO Q12 [facility] Last Admin: 01/12/17 21:39 Dose: Not Given Montelukast Sodium (Singulair) 10 mg PO HS [facility] Last Admin: 01/12/17 21:39 Dose: 10 mg Ondansetron HCl (Zofran Inj) 4 mg IVP Q6 PRN PRN Reason: Nausea/Vomiting Pantoprazole Sodium (Protonix Ec Tab) 40 mg PO DAILY [facility] Polyethylene Glycol (Miralax) 17 gm PO DAILY [facility] Last Admin: 01/12/17 10:24 Dose: 17 gm Sucralfate (Carafate Tab) 1 gm PO TID [facility] Last Admin: 01/12/17 17:27 Dose: 1 gm - Labs Labs: 01/12/17 06:54 01/12/17 06:54 PT 12.8 SECONDS (9.7-12.2) H 01/10/17 21:30 INR 1.1 01/10/17 21:30 APTT 28 SECONDS (21-34) 01/10/17 21:30 - Constitutional Appears: Non-toxic, No Acute Distress, Other (tearful and crying) - Head Exam Head Exam: ATRAUMATIC, NORMAL INSPECTION, NORMOCEPHALIC - Eye Exam Eye Exam: Normal appearance. absent: Conjunctival injection, Scleral icterus - ENT Exam ENT Exam: Mucous Membranes Moist - Neck Exam Neck Exam: Full ROM, Normal Inspection. absent: Tenderness - Respiratory Exam Respiratory Exam: Clear to Ausculation Bilateral, NORMAL BREATHING PATTERN. absent: Accessory Muscle Use, Rales, Rhonchi, Wheezes, Respiratory Distress - Cardiovascular Exam Cardiovascular Exam: REGULAR RHYTHM, RRR, +S1, +S2. absent: Murmur - GI/Abdominal Exam GI & Abdominal Exam: Soft, Tenderness (diffuse to palpation), Normal Bowel Sounds. absent: Distended, Firm, Guarding, Rigid - Extremities Exam Extremities Exam: Normal Capillary Refill, Normal Inspection. absent: Calf Tenderness, Pedal Edema, Tenderness - Back Exam Back Exam: NORMAL INSPECTION. absent: rash noted, tenderness - Neurological Exam Neurological Exam: Alert, Awake, Oriented x3 - Psychiatric Exam Psychiatric exam: Anxious, Depressed - Skin Skin Exam: Dry, Intact, Normal Color, Warm Assessment and Plan - Assessment and Plan (Free Text) Assessment: 56yo female with history of DM2, COPD, Asthma, afib presents c/o chest pain and palpitations. Plan: Chest Pain -r/o ACS -Troponin negative x 3 -EKG 01/10/17: Normal sinus rhythm at 66, T wave abnormality (consider anterior ischemia), Abnormal ECG -EKG 5: AM: Normal sinus rhythm at 85, T wave abnormality (consider anterior ischemia), Abnormal ECG -EKG 01/11/17 PM: NSR at 81, Normal EKG -Cardiac Cath 11/14/16: EF 70%, codominant circulation, RCA unremarkable, L main unremarkable, LAD/Diagonals mild intimal irregularities without significant stenosis, Circumflex/Obtuse marginals free of significant disease -Echo 10/17/16: 75% EF, LV fxn normal, no regional wall abnormalities, mild MR -TSH wnl -CXR revealed no active disease f/u official report -ASA 81mg po daily -Motrin 400mg po q6 prn for pain -Place on tele -Dr. Khalil on board Diabetes mellitus type 2 -Diet controlled; placed on heart healthy, low carb diet -Fingersticks ACHS -RISS low dose -f/u repeat HgbA1c Hx of COPD/Asthma -Continue albuterol PRN -Continue singulair 10mg po hs -Continue advair PRN Hx of HTN -Lopressor 12.5mg po q12 -Losartan 50mg po bid -HCTZ 25mg po daily -f/u lipid panel Hx of JOHN -Feosol 325mg po bid Hx of GERD -Sucralfate 1gm po tid Constipation -Miralax 17gm po daily Hx of Anxiety -Continue Clonazepam 1mg po tid -Lexapro 10mg po daily -PRN Ativan 1mg IVP q6H Prophylaxis -Protonix 40mg po daily -Heparin 5000U SC Q8 -Zofran 4mg ivp Q6 prn -SCD's -Heart healthy Diet -Dispo: patient to be discharged in AM 01/14 and to followup outpatient with Dr. Reddy within 7 days Plan discussed with Dr. Maureen Vieira PGY1 <Miller Reddy Jr. - Last Filed: 01/16/17 11:09> Objective - Vital Signs/Intake and Output Vital Signs (last 24 hours): Temp Pulse Resp BP Pulse Ox 97.3 F L 63 20 115/78 99 01/14/17 07:00 01/14/17 07:00 01/14/17 07:00 01/14/17 07:00 01/14/17 07:00 - Labs Labs: 01/14/17 06:03 01/14/17 06:03 PT 12.8 SECONDS (9.7-12.2) H 01/10/17 21:30 INR 1.1 01/10/17 21:30 APTT 28 SECONDS (21-34) 01/10/17 21:30 Attending/Attestation - Attestation I have personally seen and examined this patient.: Yes I have fully participated in the care of the patient.: Yes I have reviewed all pertinent clinical information, including history, physical exam and plan: Yes Notes (Text): 01/16/17 11:09 Agree with resident note and plan of care
[2017-01-13 07:41] LABS: BASO % 0.6 % (0.0-2.0); EOS # 0.4 K/uL (0.0-0.7); EOS % 5.8 % (0.0-4.0); HEMATOCRIT 32.6 % (34.0-47.0); LYMPH # 2.7 K/uL (1.0-4.3); LYMPH % 38.2 % (20.0-40.0); MEAN CELL VOLUME 77.2 fL (81.0-99.0); MEAN CORPUSCULAR HEMOGLOBIN 25.3 pg (27.0-31.0); MEAN CORPUSCULAR HGB CONC 32.8 g/dL (33.0-37.0); MEAN PLATELET VOLUME 9.1 fL (7.2-11.7); MONO # 0.6 K/uL (0.0-0.8); MONO % 7.8 % (0.0-10.0); NRBC % 0.1 % (0.0-2.0); RED CELL DISTRIBUTION WIDTH 16.2 % (11.5-14.5); WHITE BLOOD COUNT 7.2 K/uL (4.8-10.8)
[2017-01-13 07:59] LABS: CHLORIDE 102 mmol/L (98-107); POTASSIUM 4.2 mmol/L (3.6-5.2); SODIUM 138 mmol/L (132-148)
[2017-01-13 08:01] LABS: ALB/GLOB RATIO 1.1 (1.0-2.1); BILIRUBIN,TOTAL 0.5 mg/dL (0.2-1.3); CARBON DIOXIDE 23 mmol/L (22-30); CHOLESTEROL 178 mg/dL (0-199); GFR AFRICAN-AMERICAN > 60; TOTAL PROTEIN 7.4 g/dL (6.3-8.3)
[2017-01-13 08:02] LABS: ALKALINE PHOSPHATASE 80 U/L (38-126); ALT/SGPT 24 U/L (9-52); AST/SGOT 17 U/L (14-36); BLOOD UREA NITROGEN 17 mg/dL (7-17); CALCIUM 8.7 mg/dl (8.6-10.4); GLUCOSE,RANDOM 87 mg/dL (65-105); MAGNESIUM 1.8 mg/dL (1.6-2.3)
[2017-01-13] MEDS: (Novolog) Insulin Aspart, Recombinant 100 u/ml 10 ml vial SC SCH ×4 (08:14→22:35)
[2017-01-13] MEDS: FLECAINIDE 50 MG PO SCH (10:00)
[2017-01-13] MEDS: POLYETHYLENE GLYCOL 3350 17 GM/Dose PACKET PO SCH (10:22)
[2017-01-13] MEDS: Pantoprazole 40 mg EC Tab PO SCH (10:32)
--- NOTE | 2017-01-13 11:03 | CP.PCM.PN ---
<Vance Avila - Last Filed: 01/13/17 18:11> Subjective - Date & Time of Evaluation Date of Evaluation: 01/13/17 Time of Evaluation: 07:15 - Subjective Subjective: Cardiology Progress Note Dr. Khalil Patient seen and examined at the bedside. No acute distress initially, but patient frequently tearful and distressed during exam. 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 ROS from patient is somewhat limited as she struggles to explain her symptoms to staff. She reports sensation of "pounding" in her chest, but describes it as "normal pounding," but then gets equally concerned regarding palpitations and unable to differentiate the two when describing to staff. She remains significantly anxious regarding her diagnosis and possible discharge, multiple times stating that she doesn't want to just be pushed out the door because her blood testing is normal. She is insistent that something is seriously wrong and frequently states that she is scared, begging staff to help her. No further episodes of emesis. 12 point review of systems was completed and negative except for the above, stated complaints. Objective - Vital Signs/Intake and Output Vital Signs (last 24 hours): Temp Pulse Resp BP Pulse Ox 97.8 F 62 20 118/75 95 01/13/17 07:00 01/13/17 10:21 01/13/17 07:00 01/13/17 10:21 01/13/17 07:00 - Medications Medications: Current Medications Acetaminophen (Tylenol 325mg Tab) 650 mg PO Q6 PRN PRN Reason: Fever >100.4 F Albuterol (Ventolin Hfa 90 Mcg/Actuation (8 G)) 2 puff IH RQ6 PRN PRN Reason: Cough Aspirin (Ecotrin) 81 mg PO DAILY [facility] Last Admin: 01/13/17 10:32 Dose: 81 mg Clonazepam (Klonopin) 1 mg PO TID [facility] Last Admin: 01/13/17 10:31 Dose: 1 mg Ferrous Sulfate (Feosol) 325 mg PO BID [facility] Last Admin: 01/13/17 10:31 Dose: 325 mg Heparin Sodium (Porcine) (Heparin) 5,000 units SC Q8 [facility] Last Admin: 01/13/17 06:32 Dose: 5,000 units Home Med (Patient's Own Medication) 1 tab PO Q12H [facility] Last Admin: 01/13/17 10:00 Dose: 1 tab Hydrochlorothiazide (Hydrodiuril) 25 mg PO DAILY [facility] Last Admin: 01/13/17 10:32 Dose: Not Given Ibuprofen (Motrin Tab) 400 mg PO Q6 PRN PRN Reason: Pain, Mild (1-3) Last Admin: 01/12/17 21:38 Dose: 400 mg Insulin Aspart (Novolog) 0 unit SC ACHS [facility] PRN Reason: Protocol Last Admin: 01/13/17 08:14 Dose: Not Given Lorazepam (Ativan) 1 mg IVP Q6H PRN PRN Reason: Anxiety Losartan Potassium (Cozaar) 50 mg PO BID [facility] Last Admin: 01/12/17 17:31 Dose: Not Given Metoprolol Tartrate (Lopressor) 12.5 mg PO Q12 [facility] Last Admin: 01/13/17 10:32 Dose: 12.5 mg Montelukast Sodium (Singulair) 10 mg PO HS [facility] Last Admin: 01/12/17 21:39 Dose: 10 mg Ondansetron HCl (Zofran Inj) 4 mg IVP Q6 PRN PRN Reason: Nausea/Vomiting Pantoprazole Sodium (Protonix Ec Tab) 40 mg PO DAILY [facility] Last Admin: 01/13/17 10:32 Dose: 40 mg Polyethylene Glycol (Miralax) 17 gm PO DAILY [facility] Last Admin: 01/13/17 10:22 Dose: 17 gm Sucralfate (Carafate Tab) 1 gm PO TID [facility] Last Admin: 01/13/17 10:32 Dose: 1 gm - Labs Labs: 01/13/17 07:09 01/13/17 07:09 PT 12.8 SECONDS (9.7-12.2) H 01/10/17 21:30 INR 1.1 01/10/17 21:30 APTT 28 SECONDS (21-34) 01/10/17 21:30 - Additional Findings Additional findings: - Constitutional Appears: Non-toxic, No Acute Distress - Head Exam Head Exam: ATRAUMATIC, NORMAL INSPECTION, NORMOCEPHALIC - Eye Exam Eye Exam: EOMI, Normal appearance. absent: Conjunctival injection, Scleral icterus Pupil Exam: absent: Irregular, Unequal - ENT Exam ENT Exam: Mucous Membranes Moist - Neck Exam Neck exam: Negative for: Lymphadenopathy, Tenderness, Thyromegaly - Respiratory Exam Respiratory Exam: Chest Wall Tenderness (mildine tenderness to palpation, mild static tenderness), Decreased Breath Sounds (mild diffusely decreased breath sounds, possibly 2/2 body habitus), Clear to Auscultation Bilateral, NORMAL BREATHING PATTERN. absent: Accessory Muscle Use, Prolonged Expiratory Phase, Rales, Rhonchi, Wheezes - Cardiovascular Exam Cardiovascular Exam: REGULAR RHYTHM, RRR, +S1, +S2. absent: Bradycardia, Tachycardia, Diastolic murmur, Irregular Rhythm, +S4, Systolic Murmur - GI/Abdominal Exam GI & Abdominal Exam: Normal Bowel Sounds, Soft, Tenderness (mild diffuse tenderness to palpation in all quadrants, most prominent epigastrically). absent: Diminished Bowel Sounds, Distended (obese but not distended), Firm, Hyperactive Bowel Sounds, Hypoactive Bowel Sounds, Rigid - Extremities Exam Extremities exam: Negative for: calf tenderness, joint swelling, tenderness - Neurological Exam Neurological Exam: Awake and alert, moving in bed and moving all extremities spontaneously, following all commands appropriately - Psychiatric Exam Psychiatric exam: Significant anxiety regarding condition in general and palpitations in specific, concerned that "something is definitely wrong with me. " Poor insight into condition, poor insight regarding difference between curative conditions and management of chronic conditions, borderline hysterical (tearfully states she is scared, begging staff to help her) - Skin Skin Exam: Dry, Intact, Normal Color, Warm Assessment and Plan (1) Chest pain Assessment & Plan: EKG 01/10/17: Normal sinus rhythm at 66, T wave abnormality (consider anterior ischemia), Abnormal ECG EKG 5: AM: Normal sinus rhythm at 85, T wave abnormality (consider anterior ischemia), Abnormal ECG EKG 01/11/17 PM: NSR at 81, Normal EKG Cardiac Cath 11/14/16: EF 70%, codominant circulation, RCA unremarkable, L main unremarkable, LAD/Diagonals mild intimal irregularities without significant stenosis, Circumflex/Obtuse marginals free of significant disease Echo 10/17/16: 75% EF, LV fxn normal, no regional wall abnormalities, mild MR Trops negative x3 -Anxiety vs paroxysmal Afib vs 2/2 GERD flare, less likely ACS given NSR EKGs and negative trops x3 -Definitely significant anxiety component involved, pt frequently tearful and anxious during interview and exam, started on Lexapro per primary team -Patient also reports multiple recent episodes of emesis, concurrent with resumption of chest pain -Chest pain reproducible on exam, more likely musculoskeletal or 2/2 GERD than ACS -Recent cardiac cath (as above), no indication for repeat at this time -Continue medical management; stopping Fleccanide in favor of decreased BID Cardizem dosing (now 30mg PO BID) -Continue telemetry monitoring Status: Acute (2) Palpitations Assessment & Plan: EKG 01/10/17: Normal sinus rhythm at 66, T wave abnormality (consider anterior ischemia), Abnormal ECG EKG 5: AM: Normal sinus rhythm at 85, T wave abnormality (consider anterior ischemia), Abnormal ECG EKG 01/11/17 PM: NSR at 81, Normal EKG Cardiac Cath 11/14/16: EF 70%, codominant circulation, RCA unremarkable, L main unremarkable, LAD/Diagonals mild intimal irregularities without significant stenosis, Circumflex/Obtuse marginals free of significant disease Echo 10/17/16: 75% EF, LV fxn normal, no regional wall abnormalities, mild MR Trops negative x3 -Anxiety vs paroxysmal Afib vs 2/2 GERD flare, less likely ACS given NSR EKGs and negative trops x3 -Definitely significant anxiety component involved, pt frequently tearful and anxious during interview and exam -recommend f/u Psych as outpt, Lexapro added per primary team -Recent cardiac cath (as above), no indication for repeat at this time -Continue medical management; stopping Fleccanide in favor of decreased BID Cardizem dosing (now 30mg PO BID) -Continue telemetry monitoring Status: Chronic (3) HTN (hypertension) Assessment & Plan: -Anxiety vs inadequate medical control vs medication non-compliance -Definitely significant anxiety component involved, pt frequently tearful and anxious during interview and exam -Patient states compliant with all medications, but is convinced her medications are causing some of her symptoms (dizziness, lightheadedness, palpitations) -Recommend f/u Psych as outpt -Continue medical management; stopping Fleccanide in favor of decreased BID Cardizem dosing (now 30mg PO BID) -Currently controlled, continue to monitor Status: Chronic - Assessment and Plan (Free Text) Assessment: Case discussed with Dr. Khalil. <Farrukh Khalil - Last Filed: 02/16/17 05:33> Objective - Vital Signs/Intake and Output Vital Signs (last 24 hours): Temp Pulse Resp BP Pulse Ox 97.3 F L 63 20 115/78 99 01/14/17 07:00 01/14/17 07:00 01/14/17 07:00 01/14/17 07:00 01/14/17 07:00 - Labs Labs: 01/14/17 06:03 01/14/17 06:03 PT 12.8 SECONDS (9.7-12.2) H 01/10/17 21:30 INR 1.1 01/10/17 21:30 APTT 28 SECONDS (21-34) 01/10/17 21:30 Attending/Attestation - Attestation I have personally seen and examined this patient.: Yes I have fully participated in the care of the patient.: Yes I have reviewed all pertinent clinical information, including history, physical exam and plan: Yes Notes (Text): 02/16/17 05:32 Pt HR stable depressed continue meds
[2017-01-14 06:23] LABS: BASO # 0.1 K/uL (0.0-0.2); BASO % 0.9 % (0.0-2.0); EOS # 0.5 K/uL (0.0-0.7); EOS % 6.8 % (0.0-4.0); HEMATOCRIT 34.1 % (34.0-47.0); LYMPH # 2.5 K/uL (1.0-4.3); LYMPH % 37.9 % (20.0-40.0); MEAN CELL VOLUME 77.1 fL (81.0-99.0); MEAN CORPUSCULAR HEMOGLOBIN 25.1 pg (27.0-31.0); MEAN CORPUSCULAR HGB CONC 32.5 g/dL (33.0-37.0); MEAN PLATELET VOLUME 8.6 fL (7.2-11.7); MONO # 0.5 K/uL (0.0-0.8); MONO % 7.2 % (0.0-10.0); NRBC % 0.1 % (0.0-2.0); RED CELL DISTRIBUTION WIDTH 15.9 % (11.5-14.5); WHITE BLOOD COUNT 6.6 K/uL (4.8-10.8)
[2017-01-14 06:37] LABS: CHLORIDE 102 mmol/L (98-107); POTASSIUM 4.1 mmol/L (3.6-5.2); SODIUM 138 mmol/L (132-148)
[2017-01-14 06:39] LABS: ALKALINE PHOSPHATASE 82 U/L (38-126); AST/SGOT 18 U/L (14-36); BILIRUBIN,TOTAL 0.5 mg/dL (0.2-1.3); CARBON DIOXIDE 25 mmol/L (22-30); GFR AFRICAN-AMERICAN > 60; TOTAL PROTEIN 7.6 g/dL (6.3-8.3)
[2017-01-14 06:40] LABS: ALT/SGPT 22 U/L (9-52); BLOOD UREA NITROGEN 16 mg/dL (7-17); GLUCOSE,RANDOM 101 mg/dL (65-105); MAGNESIUM 1.8 mg/dL (1.6-2.3); PHOSPHOROUS 4.3 mg/dL (2.5-4.5)
--- NOTE | 2017-01-14 06:52 | CP.PCM.DIS ---
Provider - Provider Date of Admission: 01/13/17 12:17 Attending physician: Miller Reddy Jr, MD Primary care physician: Dr. Reddy Consults: Dr Khalil cardiology Time Spent in preparation of Discharge (in minutes): 45 Hospital Course - Lab Results Lab Results: Most Recent Lab Values WBC 6.6 K/uL (4.8-10.8) 01/14/17 06:03 RBC 4.42 Mil/uL (3.80-5.20) 01/14/17 06:03 Hgb 11.1 g/dL (11.0-16.0) 01/14/17 06:03 Hct 34.1 % (34.0-47.0) 01/14/17 06:03 MCV 77.1 fL (81.0-99.0) L 01/14/17 06:03 MCH 25.1 pg (27.0-31.0) L 01/14/17 06:03 MCHC 32.5 g/dL (33.0-37.0) L 01/14/17 06:03 RDW 15.9 % (11.5-14.5) H 01/14/17 06:03 Plt Count 323 K/uL (130-400) 01/14/17 06:03 MPV 8.6 fL (7.2-11.7) 01/14/17 06:03 Neut % (Auto) 47.2 % (50.0-75.0) L 01/14/17 06:03 Lymph % (Auto) 37.9 % (20.0-40.0) 01/14/17 06:03 [place] % (Auto) 7.2 % (0.0-10.0) 01/14/17 06:03 Eos % (Auto) 6.8 % (0.0-4.0) H 01/14/17 06:03 Baso % (Auto) 0.9 % (0.0-2.0) 01/14/17 06:03 Neut # 3.1 K/uL (1.8-7.0) 01/14/17 06:03 Lymph # 2.5 K/uL (1.0-4.3) 01/14/17 06:03 [place] # 0.5 K/uL (0.0-0.8) 01/14/17 06:03 Eos # 0.5 K/uL (0.0-0.7) 01/14/17 06:03 Baso # 0.1 K/uL (0.0-0.2) 01/14/17 06:03 PT 12.8 SECONDS (9.7-12.2) H 01/10/17 21:30 INR 1.1 01/10/17 21:30 APTT 28 SECONDS (21-34) 01/10/17 21:30 Sodium 138 mmol/L (132-148) 01/14/17 06:03 Potassium 4.1 mmol/L (3.6-5.2) 01/14/17 06:03 Chloride 102 mmol/L (98-107) 01/14/17 06:03 Carbon Dioxide 25 mmol/L (22-30) 01/14/17 06:03 Anion Gap 15 (10-20) 01/14/17 06:03 BUN 16 mg/dL (7-17) 01/14/17 06:03 Creatinine 0.9 MG/DL (0.7-1.2) 01/14/17 06:03 Est GFR ( Amer) > 60 01/14/17 06:03 Est GFR (Non-Af Amer) > 60 01/14/17 06:03 POC Glucose (mg/dL) 101 mg/dL (65-110) 01/14/17 06:26 Random Glucose 101 mg/dL (65-105) 01/14/17 06:03 Hemoglobin A1c 5.7 % (4.2-6.5) 01/11/17 08:12 Calcium 9.0 mg/dl (8.6-10.4) 01/14/17 06:03 Phosphorus 4.3 mg/dL (2.5-4.5) 01/14/17 06:03 Magnesium 1.8 mg/dL (1.6-2.3) 01/14/17 06:03 Total Bilirubin 0.5 mg/dL (0.2-1.3) 01/14/17 06:03 AST 18 U/L (14-36) 01/14/17 06:03 ALT 22 U/L (9-52) 01/14/17 06:03 Alkaline Phosphatase 82 U/L (38-126) 01/14/17 06:03 Total Creatine Kinase 37 U/L (30-135) 01/10/17 20:48 CK-MB (Mass) < 0.22 ng/mL (0.0-3.38) 01/10/17 20:48 Troponin I < 0.0120 ng/mL (0.00-0.120) 01/11/17 13:49 Troponin I, Quant < 0.0120 ng/mL (0.00-0.120) 01/10/17 20:48 NT-Pro-B Natriuret Pep 14.7 pg/mL (0-900) 01/10/17 20:48 Total Protein 7.6 g/dL (6.3-8.3) 01/14/17 06:03 Albumin 3.9 g/dL (3.5-5.0) 01/14/17 06:03 Globulin 3.8 gm/dL (2.2-3.9) 01/14/17 06:03 Albumin/Globulin Ratio 1.0 (1.0-2.1) 01/14/17 06:03 Triglycerides 109 mg/dL (0-149) D 01/13/17 07:09 Cholesterol 178 mg/dL (0-199) 01/13/17 07:09 LDL Cholesterol Direct 89 mg/dL (0-129) 01/13/17 07:09 HDL Cholesterol 37 mg/dL (30-70) 01/13/17 07:09 TSH 3rd Generation 2.33 mIU/L (0.46-4.68) 01/10/17 20:48 - Hospital Course Hospital Course: Upon Admission 56yo female with extensive past medical history that includes afib s/p 2 ablations, COPD, hypertension, DM type 2, asthma and anxiety who presents to the ED with complaint of chest pain and palpitations. She states she was sitting up, watching TV when she developed a sharp substernal and right sided chest pain that lasted only a moment. She reports it did not radiated into the arm or neck. She developed momentary SOB and palpitations so she called 911. In the ambulance she was told she was tachycardic. On evaluation, the chest pain had resolved; however, the patient appeared anxious and stated she was not going to cry. She reports being afraid and tired of feeling like this. She has been watching her diet and trying to exercise more. She has not been lifting heavy objects. When palpating on her chest, she reports similar pains. She denied focal weakness, numbness, tingling, dysuria, frequency, urgency, fever, chills, cough. Patient was admitted to [facility]. She had negative ANGELIKA x 3 and EKGs x [address] changes[address] Cardiology Dr Khalil was consulted and past records revealed an Echo 10/17/16 that showed 75% EF, LV fxn normal, no regional wall abnormalities, mild MR and a Cardiac Cath 11/14/16 that showed EF 70%, codominant circulation, RCA unremarkable, L main unremarkable, LAD/Diagonals mild intimal irregularities without significant stenosis, Circumflex/Obtuse marginals free of significant disease. CXR on this visit was unremarkable and Thyroid studies were WNL. As per cardiology, patient was advised to stop taking Flecanide and to start taking cardizem 30mg po bid. Patient had a negative cardiac workup and was restarted on her home medications. On day of discharge patient was deemed medically stable for discharge 1) Chest pain: likely secondary to anxiety- f/u outpatient 2) DM2: discharged on meds 3) Hx COPD/asthma: discharged on meds 4) Hx of HTN: discharged on meds 5) Hx of JOHN: discharged on meds 6) Hx of GERD: discharged on meds 7) Hx of anxiety: discharged on meds Upon Discharge Patient stable for discharge home as per Dr. Reddy Patient to take medications as prescribed: -ASA 81mg po daily -Clonazepam 1mg po tid -Feosol 325mg po bid -Cozaar 50mg po bid -Metforin 500mg po daily -Lopressor 12.5mg po bid -Singulair 10mg po hs -HCTZ 25mg po daily -Cardizem 30mg po bid -Lexapro 10mg po daily -Sucralfate 1gm po tid Patient to STOP taking Flecanide as per cardio recommendations. Patient to follow up with PMD Dr. Reddy within 7 days. Address: [address] [place] [address] [address] floor. [place] [address] Patient to also follow up with cardiology within 10 days. If symptoms persist or worsen patient to visit ER immediately. Instructions discussed in detail with patient who understands and agrees. Discharge Exam - Head Exam Head Exam: ATRAUMATIC, NORMAL INSPECTION, NORMOCEPHALIC - Eye Exam Eye Exam: EOMI, Normal appearance, PERRL. absent: Conjunctival injection, Scleral icterus Pupil Exam: NORMAL ACCOMODATION, PERRL - ENT Exam ENT Exam: Mucous Membranes Moist - Neck Exam Neck exam: Full Rom, Normal Inspection - Respiratory Exam Respiratory Exam: Clear to PA & Lateral, NORMAL BREATHING PATTERN, UNREMARKABLE. absent: Accessory Muscle Use, Rales, Rhonchi, Wheezes, Respiratory Distress - Cardiovascular Exam Cardiovascular Exam: REGULAR RHYTHM, RRR, +S1, +S2 - GI/Abdominal Exam GI & Abdominal Exam: Normal Bowel Sounds, Soft, Tenderness (in all quadrants to palpation) - Extremities Exam Extremities exam: normal capillary refill, normal inspection, pedal pulses present - Back Exam Back exam: NORMAL INSPECTION. absent: CVA tenderness (L), CVA tenderness (R), rash noted, tenderness - Neurological Exam Neurological exam: Alert, CN II-XII Intact, Oriented x3 - Psychiatric Exam Psychiatric exam: Anxious, Depressed - Skin Skin Exam: Dry, Intact, Normal Color, Warm Discharge Plan - Discharge Medications Prescriptions: Escitalopram [Lexapro] 10 mg PO DAILY #30 tab Ferrous Sulfate [Feosol] 325 mg PO BID #60 tab hydroCHLOROthiazide [Hydrodiuril] 25 mg PO DAILY #30 tab Losartan [Cozaar] 50 mg PO BID #60 tab Montelukast [Singulair] 10 mg PO DAILY #30 Sucralfate [Carafate] 1 gm PO TID #90 - Follow Up Plan Condition: FAIR Disposition: HOME/ ROUTINE Instructions: Iron Supplements (By mouth), Metoprolol (By mouth), Diltiazem ( By mouth), Hydrochlorothiazide (By mouth), Sucralfate (By mouth), Losartan (By mouth), Montelukast (By mouth), Escitalopram (By mouth), Heart Failure (DC), Chest Pain (DC), Palpitations (DC), Heart Healthy Diet (DC), Hypertension (DC), Hypertension (GEN) Additional Instructions: Patient stable for discharge home as per Dr. Reddy Patient to take medications as prescribed: -ASA 81mg po daily -Clonazepam 1mg po tid -Feosol 325mg po bid -Cozaar 50mg po bid -Metforin 500mg po daily -Lopressor 12.5mg po bid -Singulair 10mg po hs -HCTZ 25mg po daily -Cardizem 30mg po bid -Lexapro 10mg po daily -Sucralfate 1gm po tid Patient to STOP taking Flecanide as per cardio recommendations. Patient to follow up with PMD Dr. Redyd within 7 days. Address: [address] [place] [address] [address]rd floor. [place] [address] Patient to also follow up with cardiology within 10 days. If symptoms persist or worsen patient to visit ER immediately. Instructions discussed in detail with patient who understands and agrees. Referrals: Miller Reddy Jr., MD [Medical Doctor] -
[2017-01-14] MEDS: (Novolog) Insulin Aspart, Recombinant 100 u/ml 10 ml vial SC SCH (08:18)
[2017-01-14 08:33] VITALS: BP 115/78; PULSE 63; TEMP 97.3; O2SAT 99
[2017-01-14] MEDS: Pantoprazole 40 mg EC Tab PO SCH (10:26)
[2017-01-14] MEDS: POLYETHYLENE GLYCOL 3350 17 GM/Dose PACKET PO SCH (10:26)
--- NOTE | 2017-01-14 11:43 | CP.PCM.PN ---
<Vance Avila - Last Filed: 01/14/17 11:40> Subjective - Date & Time of Evaluation Date of Evaluation: 01/14/17 Time of Evaluation: 07:45 - Subjective Subjective: Cardiology Progress Note Dr. Khalil Patient seen and examined at the bedside. No acute events overnight, and no abnormalities on review of tele monitor overnight, but patient reports continued chest discomfort and abdominal pain overnight. She remains anxious during exam, and is concerned about being discharged. Denies new chest pain or shortness of breath, no further episodes of emesis. Objective - Vital Signs/Intake and Output Vital Signs (last 24 hours): Temp Pulse Resp BP Pulse Ox 97.3 F L 63 20 115/78 99 01/14/17 07:00 01/14/17 07:00 01/14/17 07:00 01/14/17 07:00 01/14/17 07:00 Intake and Output: 01/14/17 01/14/17 06:59 18:59 Intake Total 400 Balance 400 - Medications Medications: Current Medications Acetaminophen (Tylenol 325mg Tab) 650 mg PO Q6 PRN PRN Reason: Fever >100.4 F Albuterol (Ventolin Hfa 90 Mcg/Actuation (8 G)) 2 puff IH RQ6 PRN PRN Reason: Cough Aspirin (Ecotrin) 81 mg PO DAILY [facility] Last Admin: 01/14/17 10:26 Dose: 81 mg Clonazepam (Klonopin) 1 mg PO TID [facility] Last Admin: 01/14/17 10:26 Dose: 1 mg Diltiazem HCl (Cardizem) 30 mg PO BID [facility] Last Admin: 01/14/17 10:26 Dose: 30 mg Escitalopram Oxalate (Lexapro) 10 mg PO DAILY [facility] Last Admin: 01/14/17 10:26 Dose: 10 mg Ferrous Sulfate (Feosol) 325 mg PO BID [facility] Last Admin: 01/14/17 10:33 Dose: Not Given Hydrochlorothiazide (Hydrodiuril) 25 mg PO DAILY [facility] Last Admin: 01/14/17 10:37 Dose: Not Given Ibuprofen (Motrin Tab) 400 mg PO Q6 PRN PRN Reason: Pain, Mild (1-3) Last Admin: 01/13/17 18:47 Dose: 400 mg Insulin Aspart (Novolog) 0 unit SC ACHS [facility] PRN Reason: Protocol Last Admin: 01/14/17 08:18 Dose: Not Given Lorazepam (Ativan) 1 mg IVP Q6H PRN PRN Reason: Anxiety Losartan Potassium (Cozaar) 50 mg PO BID [facility] Last Admin: 01/14/17 10:26 Dose: 50 mg Metoprolol Tartrate (Lopressor) 12.5 mg PO Q12 [facility] Last Admin: 01/14/17 10:26 Dose: 12.5 mg Montelukast Sodium (Singulair) 10 mg PO HS [facility] Last Admin: 01/13/17 22:53 Dose: 10 mg Ondansetron HCl (Zofran Inj) 4 mg IVP Q6 PRN PRN Reason: Nausea/Vomiting Last Admin: 01/14/17 07:57 Dose: 4 mg Ondansetron HCl (Zofran Odt) 4 mg PO Q4 PRN PRN Reason: Nausea/Vomiting Pantoprazole Sodium (Protonix Ec Tab) 40 mg PO DAILY [facility] Last Admin: 01/14/17 10:26 Dose: 40 mg Polyethylene Glycol (Miralax) 17 gm PO DAILY [facility] Last Admin: 01/13/17 10:22 Dose: 17 gm Sucralfate (Carafate Tab) 1 gm PO TID [facility] Last Admin: 01/14/17 10:26 Dose: 1 gm - Labs Labs: 01/14/17 06:03 01/14/17 06:03 PT 12.8 SECONDS (9.7-12.2) H 01/10/17 21:30 INR 1.1 01/10/17 21:30 APTT 28 SECONDS (21-34) 01/10/17 21:30 - Additional Findings Additional findings: - Constitutional Appears: Non-toxic, No Acute Distress - Head Exam Head Exam: ATRAUMATIC, NORMAL INSPECTION, NORMOCEPHALIC - Eye Exam Eye Exam: EOMI, Normal appearance. absent: Conjunctival injection, Scleral icterus Pupil Exam: absent: Irregular, Unequal - ENT Exam ENT Exam: Mucous Membranes Moist - Neck Exam Neck exam: Negative for: Lymphadenopathy, Tenderness, Thyromegaly - Respiratory Exam Respiratory Exam: Chest Wall Tenderness (mildine tenderness to palpation, mild static tenderness), Decreased Breath Sounds (mild diffusely decreased breath sounds, possibly 2/2 body habitus), Clear to Auscultation Bilateral, NORMAL BREATHING PATTERN. absent: Accessory Muscle Use, Prolonged Expiratory Phase, Rales, Rhonchi, Wheezes - Cardiovascular Exam Cardiovascular Exam: REGULAR RHYTHM, RRR, +S1, +S2. absent: Bradycardia, Tachycardia, Diastolic murmur, Irregular Rhythm, +S4, Systolic Murmur - GI/Abdominal Exam GI & Abdominal Exam: Normal Bowel Sounds, Soft, Tenderness (mild diffuse tenderness to palpation in all quadrants, most prominent epigastrically). absent: Diminished Bowel Sounds, Distended (obese but not distended), Firm, Hyperactive Bowel Sounds, Hypoactive Bowel Sounds, Rigid - Extremities Exam Extremities exam: Negative for: calf tenderness, joint swelling, tenderness - Neurological Exam Neurological Exam: Awake and alert, moving in bed and moving all extremities spontaneously, following all commands appropriately - Psychiatric Exam Psychiatric exam: Significant anxiety regarding condition in general and palpitations in specific, concerned that "something is definitely wrong with me. " Poor insight into condition, poor insight regarding difference between curative conditions and management of chronic conditions - Skin Skin Exam: Dry, Intact, Normal Color, Warm Assessment and Plan (1) Chest pain Assessment & Plan: EKG 01/10/17: Normal sinus rhythm at 66, T wave abnormality (consider anterior ischemia), Abnormal ECG EKG 5: AM: Normal sinus rhythm at 85, T wave abnormality (consider anterior ischemia), Abnormal ECG EKG 01/11/17 PM: NSR at 81, Normal EKG Cardiac Cath 11/14/16: EF 70%, codominant circulation, RCA unremarkable, L main unremarkable, LAD/Diagonals mild intimal irregularities without significant stenosis, Circumflex/Obtuse marginals free of significant disease Echo 10/17/16: 75% EF, LV fxn normal, no regional wall abnormalities, mild MR Trops negative x3 -Anxiety vs paroxysmal Afib vs 2/2 GERD flare, less likely ACS given NSR EKGs and negative trops x3 -Definitely significant anxiety component involved, pt frequently tearful and anxious during interview and exam, started on Lexapro per primary team -Patient also reports multiple recent episodes of emesis, concurrent with resumption of chest pain -Chest pain reproducible on exam, more likely musculoskeletal or 2/2 GERD than ACS -Recent cardiac cath (as above), no indication for repeat at this time -Continue medical management; stopping Fleccanide in favor of BID Cardizem 30mg dosing -Continue telemetry monitoring Status: Acute (2) Palpitations Assessment & Plan: EKG 01/10/17: Normal sinus rhythm at 66, T wave abnormality (consider anterior ischemia), Abnormal ECG EKG 5: AM: Normal sinus rhythm at 85, T wave abnormality (consider anterior ischemia), Abnormal ECG EKG 01/11/17 PM: NSR at 81, Normal EKG Cardiac Cath 11/14/16: EF 70%, codominant circulation, RCA unremarkable, L main unremarkable, LAD/Diagonals mild intimal irregularities without significant stenosis, Circumflex/Obtuse marginals free of significant disease Echo 10/17/16: 75% EF, LV fxn normal, no regional wall abnormalities, mild MR Trops negative x3 -Anxiety vs paroxysmal Afib vs 2/2 GERD flare, less likely ACS given NSR EKGs and negative trops x3 -Definitely significant anxiety component involved, pt frequently tearful and anxious during interview and exam -recommend f/u Psych as outpt, Lexapro added per primary team -Recent cardiac cath (as above), no indication for repeat at this time -Continue medical management; stopping Fleccanide in favor of BID Cardizem 30mg dosing -Continue telemetry monitoring Status: Chronic (3) HTN (hypertension) Assessment & Plan: -Anxiety vs inadequate medical control vs medication non-compliance -Definitely significant anxiety component involved, pt frequently tearful and anxious during interview and exam -Patient states compliant with all medications, but is convinced her medications are causing some of her symptoms (dizziness, lightheadedness, palpitations) -Recommend f/u Psych as outpt -Continue medical management; stopping Fleccanide in favor of BID Cardizem dosing (now 30mg PO BID) -Currently controlled, continue to monitor Status: Chronic - Assessment and Plan (Free Text) Assessment: Case discussed with Dr. Khalil. <Farrukh Khalil - Last Filed: 02/12/17 09:34> Objective - Vital Signs/Intake and Output Vital Signs (last 24 hours): Temp Pulse Resp BP Pulse Ox 97.3 F L 63 20 115/78 99 01/14/17 07:00 01/14/17 07:00 01/14/17 07:00 01/14/17 07:00 01/14/17 07:00 - Labs Labs: 01/14/17 06:03 01/14/17 06:03 PT 12.8 SECONDS (9.7-12.2) H 01/10/17 21:30 INR 1.1 01/10/17 21:30 APTT 28 SECONDS (21-34) 01/10/17 21:30 Attending/Attestation - Attestation I have personally seen and examined this patient.: Yes I have fully participated in the care of the patient.: Yes I have reviewed all pertinent clinical information, including history, physical exam and plan: Yes Notes (Text): 02/12/17 09:34 Pt still anxious we reassured her hr and bp ok. Follow up as outpt
== END 2017-01-14 13:59 | disposition home or self-care (01) ==
LOC: C.ER 19:59 → C.9E 21:28 → C.6T 22:26 → OBSVTOIN 01-13 12:17 → INTOOBSV 01-13 12:17
PROVIDERS: ADMIT Internal Medicine; ATTEND Internal Medicine
DX: R07.89 Other chest pain (principal); I25.10 Atherosclerotic heart disease of native coronary artery without angina pectoris; I48.0 Paroxysmal atrial fibrillation; F41.9 Anxiety disorder, unspecified; K21.9 Gastro-esophageal reflux disease without esophagitis; J44.9 Chronic obstructive pulmonary disease, unspecified; J45.909 Unspecified asthma, uncomplicated; E11.9 Type 2 diabetes mellitus without complications; Z90.49 Acquired absence of other specified parts of digestive tract; Z95.5 Presence of coronary angioplasty implant and graft; Z87.891 Personal history of nicotine dependence
CPT/HCPCS: 36415; 71010; 80053; 80061; 82948; 83036; 83735; 83880; 84100; 84443; 84484; 85025; 85610; 85730; 93005; 99285; G0378; J1644; J2405

== ENCOUNTER 2017-01-15 08:57 | Emergency (ER) | payer MEDICARE, MEDICAID ==
[2017-01-15 08:58] VITALS: BMI 42.4
[2017-01-15 09:15] VITALS: BP 115/69; PULSE 82; RESP 18; TEMP 97.9; O2SAT 98
[2017-01-15] MEDS ORDERED: Aspirin 325 mg EC Tablets PO STA (09:40)
[2017-01-15] MEDS ORDERED: Sodium Chloride 0.9% 1,000 ML IV ONE (09:40)
[2017-01-15] MEDS ORDERED: Sodium Chloride 0.9% 1,000 ML ONE (09:55)
--- NOTE | 2017-01-15 10:13 | C.PDOC ---
History Of Present Illness 56 y/o female whose past medical history includes DM, Afib, HTN, COPD, Anxiety and 2 cardiac ablations presents to the emergency department complaining of intermittent chest pressure and palpitations for the past 2 days. She reports palpitations are intermittent and pain is midsternal, pressure-like. She also reports epigastric abdominal pain when the chest pain starts. Patient was discharged from hospital yesterday, appears anxious and started crying. Patient states they sent her home even though she still feels pain and palpitations. Patient insistent there is something wrong with her, and fears dying. Denies diaphoresis, fever, cough, vomiting, diarrhea, shortness of breath, lower extremity pain or swelling or any other complaints. Time Seen by Provider: 01/15/17 09:17 Chief Complaint (Nursing): Chest Pain History Per: Patient History/Exam Limitations: no limitations Onset/Duration Of Symptoms: Days Current Symptoms Are (Timing): Still Present Past Medical History Reviewed: Historical Data, Nursing Documentation, Vital Signs Vital Signs: Last Vital Signs Temp 97.9 F 01/15/17 09:14 Pulse 82 01/15/17 09:14 Resp 18 01/15/17 09:14 BP 115/69 01/15/17 09:14 Pulse Ox 98 01/15/17 10:31 - Medical History PMH: Anxiety, Arthritis (hands), CAD, Cardia Arrhythmia, CHF, COPD, Depression, Diabetes (hypoglycemia), Gastritis, Gall Bladder Disease, HTN, Hypercholesterolemia Surgical History: Cholecystectomy, Coronary Stent (x2) Family History: States: Unknown Family Hx - Social History Hx Tobacco Use: Yes (QUIT) Hx Alcohol Use: No Hx Substance Use: No - Immunization History Hx Tetanus Toxoid Vaccination: No Hx Influenza Vaccination: No Hx Pneumococcal Vaccination: No Review Of Systems Constitutional: Negative for: Fever, Chills, Sweats Cardiovascular: Positive for: Chest Pain, Palpitations Respiratory: Negative for: Cough Gastrointestinal: Positive for: Abdominal Pain. Negative for: Nausea, Vomiting , Diarrhea Physical Exam - Physical Exam Appears: Non-toxic, No Acute Distress Skin: Normal Color Head: Atraumatic, Normacephalic Eye(s): bilateral: Normal Inspection, PERRL, EOMI Nose: Normal Oral Mucosa: Moist Neck: Normal ROM Cardiovascular: Rhythm Regular, No Murmur, No Other (no palpitations) Respiratory: Normal Breath Sounds, No Rales, No Rhonchi, No Wheezing Gastrointestinal/Abdominal: Soft, Tenderness (Mild tenderness in epigastric area ), No Mass, No Distention, No Guarding, No Rebound Extremity: Normal ROM Neurological/Psych: Oriented x3, Normal Speech, Other (No focal deficits) ED Course And Treatment - Laboratory Results Result Diagrams: 01/15/17 10:07 01/15/17 10:07 Lab Interpretation: No Acute Changes ECG: Interpreted By Me, Viewed By Me ECG Rhythm: Sinus Rhythm ECG Interpretation: No Acute Changes, No Changes From Prior Rate From EC O2 Sat by Pulse Oximetry: 98 - Radiology CXR: Interpreted by Me, Viewed By Me CXR Interpretation: Yes: No Acute Disease Medical Decision Making Medical Decision Makin56 y/o female whose past medical history includes DM, Afib, HTN, COPD, Anxiety complains of palpitations and chest pain. Patient was discharged from hospital yesterday. Prior record reviewed, patient has multiple ER visits and admission for similar symptoms. Patient recently admitted 01/10 and discharged yesterday for chest pain. Negative Trops x3. Anxiety cs paroxysmal Afib Plan: * EKG * CXR * Labs Progress: EKG is NS at [address]-T changes, no acute changes from prior EKG ER cardiac monitoring revealed no arrhythmia. All labs reviewed and unremarkable, negative troponin Called and spoke with Dr Reddy who is familiar with patient and reports she was inpatient for 4 days with no findings on cardiac monitoring. Patient is stable for discharge and instructed to follow up with manager packaging Dr Khalil today or tomorrow. Disposition - Disposition Disposition: HOME/ ROUTINE Disposition Time: 12:45 Condition: STABLE Instructions: Palpitations (ED) - POA Present On Arrival: None - Clinical Impression Clinical Impression: Palpitations - PA / LEGAL BILLING ANALYST / Resident Statement MD/DO has reviewed & agrees with the documentation as recorded. - Scribe Statement The provider has reviewed the documentation as recorded by the Manjulaibjeevan Thacker All medical record entries made by the Manjulaibjeevan were at my direction and personally dictated by me. I have reviewed the chart and agree that the record accurately reflects my personal performance of the history, physical exam, medical decision making, and the department course for this patient. I have also personally directed, reviewed, and agree with the discharge instructions and disposition.
[2017-01-15 10:14] LABS: BASO # 0.1 K/uL (0.0-0.2); BASO % 1.3 % (0.0-2.0); EOS % 0.5 % (0.0-4.0); HEMATOCRIT 35.3 % (34.0-47.0); LYMPH # 1.6 K/uL (1.0-4.3); LYMPH % 19.7 % (20.0-40.0); MEAN CORPUSCULAR HEMOGLOBIN 25.2 pg (27.0-31.0); MEAN CORPUSCULAR HGB CONC 32.7 g/dL (33.0-37.0); MEAN PLATELET VOLUME 8.8 fL (7.2-11.7); MONO # 0.4 K/uL (0.0-0.8); MONO % 5.1 % (0.0-10.0); NRBC % 0.1 % (0.0-2.0); RED CELL DISTRIBUTION WIDTH 16.1 % (11.5-14.5)
[2017-01-15 10:25] LABS: CHLORIDE 99 mmol/L (98-107); POTASSIUM 4.2 mmol/L (3.6-5.2); SODIUM 138 mmol/L (132-148)
[2017-01-15 10:27] LABS: ALKALINE PHOSPHATASE 90 U/L (38-126); AST/SGOT 23 U/L (14-36); BILIRUBIN,TOTAL 0.6 mg/dL (0.2-1.3); BLOOD UREA NITROGEN 13 mg/dL (7-17); CARBON DIOXIDE 27 mmol/L (22-30); CHOLESTEROL 193 mg/dL (0-199); GFR AFRICAN-AMERICAN > 60; TOTAL PROTEIN 8.4 g/dL (6.3-8.3)
[2017-01-15 10:28] LABS: ALT/SGPT 32 U/L (9-52); CALCIUM 9.4 mg/dl (8.6-10.4); GLUCOSE,RANDOM 136 mg/dL (65-105)
--- NOTE | 2017-01-15 11:01 | RAD ---
PROCEDURE: CHEST RADIOGRAPH, 1 VIEW HISTORY: chest pain COMPARISON: 01/10/2017 FINDINGS: LUNGS: Clear. PLEURA: No pneumothorax or pleural fluid seen. CARDIOVASCULAR: Normal. OSSEOUS STRUCTURES: No significant abnormalities. VISUALIZED UPPER ABDOMEN: Normal. OTHER FINDINGS: None. IMPRESSION: No active disease.
--- NOTE | 2017-01-21 20:51 | CARD ---
APPROVED REPORT EKG Measurement Heart [id number] <Conclusion> Normal sinus rhythm Normal ECG
== END 2017-01-15 12:50 | disposition home or self-care (01) ==
LOC: C.ER 08:57
DX: R00.2 Palpitations (principal)

== ENCOUNTER 2017-02-15 22:50 | Observation (INO) | payer MEDICARE, MEDICAID ==
[2017-02-15 22:50] VITALS: BMI 42.4
[2017-02-15] MEDS ORDERED: Sodium Chloride 0.9% 1,000 ML IV ONE (23:21)
--- NOTE | 2017-02-15 23:49 | C.PDOC ---
History Of Present Illness A 56 y/o female with a Hx of GERD, c/o chest pain few hours with associated lightheadedness, and epigastric area pain. Pt denies fever, chills, nasuea, vomiting, diarrhea, hematuria, dysuria, SOB, dizziness, diaphoresis, or any other complaints. States she has rapid heart rate of 150/min earlier tonite with the chest pain. Time Seen by Provider: 02/15/17 23:13 Chief Complaint (Nursing): Chest Pain History Per: Patient History/Exam Limitations: no limitations Onset/Duration Of Symptoms: Hrs Current Symptoms Are (Timing): Still Present Severity: Mild Quality: "Pain" Associated Symptoms: Other (Lightheadedness) Exacerbating Factors: None Recent travel outside of the [place]: No Additional History Per: Patient Past Medical History Reviewed: Historical Data, Nursing Documentation, Vital Signs Vital Signs: Last Vital Signs Temp 98.2 F 02/15/17 23:11 Pulse 86 02/15/17 23:20 Resp 18 02/15/17 23:11 BP 116/76 02/15/17 23:11 Pulse Ox 100 02/16/17 01:48 - Medical History PMH: Anxiety, Arthritis (hands), Atrial Fibrillation, CAD, Cardia Arrhythmia, CHF, COPD, Depression, Diabetes (hypoglycemia), Gastritis, Gall Bladder Disease , HTN, Hypercholesterolemia Denies: Chronic Kidney Disease Surgical History: Cholecystectomy, Coronary Stent (x2) Family History: States: Unknown Family Hx - Social History Hx Tobacco Use: Yes (QUIT) Hx Alcohol Use: No Hx Substance Use: No - Immunization History Hx Tetanus Toxoid Vaccination: No Hx Influenza Vaccination: No Hx Pneumococcal Vaccination: No Review Of Systems Except As Marked, All Systems Reviewed And Found Negative. Constitutional: Negative for: Fever, Chills, Sweats Cardiovascular: Positive for: Chest Pain, Light Headedness Respiratory: Negative for: Shortness of Breath Gastrointestinal: Positive for: Abdominal Pain (epigastric area). Negative for : Nausea, Vomiting, Diarrhea Genitourinary: Negative for: Dysuria, Hematuria Neurological: Negative for: Dizziness Physical Exam - Physical Exam Appears: Non-toxic, No Acute Distress Skin: Warm, Dry Head: Atraumatic, Normacephalic Eye(s): bilateral: Normal Inspection Chest: Symmetrical Cardiovascular: Rhythm Regular Respiratory: Normal Breath Sounds, No Accessory Muscle Use, No Rales, No Rhonchi , No Wheezing Gastrointestinal/Abdominal: Soft, Tenderness (mild epigastric) Neurological/Psych: Oriented x3, Normal Speech, Normal Cognition, Normal Cranial Nerves, Other (No focal deficit) ED Course And Treatment - Laboratory Results Result Diagrams: 02/15/17 23:52 02/15/17 23:52 O2 Sat by Pulse Oximetry: 100 (RA) Pulse Ox Interpretation: Normal Medical Decision Making Medical Decision Making: Impression: A 56 y/o female with a Hx of GERD, c/o chest pain few hours with associated lightheadedness, and epigastric area pain. Plans: EKG Blood labs CXR Toradol Protonix IV fluids Reassess Disposition Discussed With Dr.: Bladimir Zuñiga Doctor Will See Patient In The: Hospital Counseled Patient/Family Regarding: Diagnosis - Disposition Disposition: HOSPITALIZED Disposition Time: 01:54 Condition: STABLE - POA Present On Arrival: None - Clinical Impression Clinical Impression: Chest pain - Scribe Statement The provider has reviewed the documentation as recorded by the Scribjeevan lawson All medical record entries made by the Manjulaibjeevan were at my direction and personally dictated by me. I have reviewed the chart and agree that the record accurately reflects my personal performance of the history, physical exam, medical decision making, and the department course for this patient. I have also personally directed, reviewed, and agree with the discharge instructions and disposition.
[2017-02-15] MEDS ORDERED: Sodium Chloride 0.9% 1,000 ML ONE (23:53)
[2017-02-16 00:01] LABS: BASO % 0.3 % (0.0-2.0); EOS # 0.3 K/uL (0.0-0.7); EOS % 3.2 % (0.0-4.0); HEMATOCRIT 33.6 % (34.0-47.0); LYMPH # 2.9 K/uL (1.0-4.3); LYMPH % 34.7 % (20.0-40.0); MEAN CELL VOLUME 77.1 fL (81.0-99.0); MEAN CORPUSCULAR HEMOGLOBIN 25.1 pg (27.0-31.0); MEAN CORPUSCULAR HGB CONC 32.6 g/dL (33.0-37.0); MEAN PLATELET VOLUME 8.9 fL (7.2-11.7); MONO # 0.4 K/uL (0.0-0.8); MONO % 5.1 % (0.0-10.0); RED CELL DISTRIBUTION WIDTH 16.3 % (11.5-14.5); WHITE BLOOD COUNT 8.2 K/uL (4.8-10.8)
[2017-02-16 00:04] LABS: CHLORIDE 103 mmol/L (98-107)
[2017-02-16 00:05] LABS: POTASSIUM 3.4 mmol/L (3.6-5.2); SODIUM 139 mmol/L (132-148)
[2017-02-16 00:07] LABS: BILIRUBIN,TOTAL 0.4 mg/dL (0.2-1.3); GFR AFRICAN-AMERICAN > 60
[2017-02-16 00:08] LABS: ALKALINE PHOSPHATASE 91 U/L (38-126); ALT/SGPT 21 U/L (9-52); AST/SGOT 12 U/L (14-36); BLOOD UREA NITROGEN 16 mg/dL (7-17); CALCIUM 8.8 mg/dl (8.6-10.4); CARBON DIOXIDE 24 mmol/L (22-30); GLUCOSE,RANDOM 108 mg/dL (65-105); TOTAL PROTEIN 7.6 g/dL (6.3-8.3)
[2017-02-16] MEDS ORDERED: Albuterol-Ipratrop 3 mg / 0.5 (3 ml) UD INH PRN (02:09)
[2017-02-16] MEDS ORDERED: Potassium Chloride 20 mEq/15 ml LIQ UD PO STA (02:55)
[2017-02-16] MEDS ORDERED: Potassium Chloride 20 mEq/15 ml LIQ UD ONE (03:00)
[2017-02-16] MEDS: (Novolog) Insulin Aspart, Recombinant 100 u/ml 10 ml vial SC SCH ×3 (07:21→16:30)
--- NOTE | 2017-02-16 08:53 | RAD ---
PROCEDURE: CHEST RADIOGRAPH, 1 VIEW HISTORY: chest pain COMPARISON: 01/15/2017 FINDINGS: LUNGS: Mild venous congestion. PLEURA: No pneumothorax or pleural fluid seen. CARDIOVASCULAR: Mild cardiomegaly. OSSEOUS STRUCTURES: No significant abnormalities. VISUALIZED UPPER ABDOMEN: Normal. OTHER FINDINGS: None. IMPRESSION: Mild venous congestion.
--- NOTE | 2017-02-16 09:56 | CP.PCM.HP ---
Past Patient History - Infectious Disease Hx of Infectious Diseases: None - Tetanus Immunizations Tetanus Immunization: Unknown - Past Medical History & Family History Past Medical History?: Yes - Past Social History Smoking Status: Former Smoker - CARDIAC Hx Atrial Fibrillation: Yes Hx Cardia Arrhythmia: Yes Hx Congestive Heart Failure: Yes Hx Hypercholesterolemia: Yes Hx Hypertension: Yes - PULMONARY Hx Chronic Obstructive Pulmonary Disease (COPD): Yes - NEUROLOGICAL HX Cerebrovascular Accident: Yes - HEENT Hx HEENT Problems: No - RENAL Hx Chronic Kidney Disease: No - ENDOCRINE/METABOLIC Hx Diabetes Mellitus Type 1: Yes - HEMATOLOGICAL/ONCOLOGICAL Hx Blood Disorders: No - INTEGUMENTARY Hx Eczema: Yes - MUSCULOSKELETAL/RHEUMATOLOGICAL Hx Arthritis: Yes (hands) - GASTROINTESTINAL Hx Gall Bladder Disease: Yes Hx Gastritis: Yes - GENITOURINARY/GYNECOLOGICAL Hx Genitourinary Disorders: No - PSYCHIATRIC Hx Anxiety: Yes Hx Depression: Yes Hx Substance Use: No - SURGICAL HISTORY Hx Cholecystectomy: Yes Hx Coronary Stent: Yes (x2) - ANESTHESIA Hx Anesthesia: Yes Hx Anesthesia Reactions: No Meds Allergies/Adverse Reactions: Allergies Allergy/AdvReac Type Severity Reaction Status Date / Time Flu vaccine Allergy Uncoded 02/15/17 23:20 pnuemonia vaccine Allergy Uncoded 02/15/17 23:20 wool Allergy Uncoded 02/15/17 23:20 Physical Exam - Constitutional Appears: Well - Head Exam Head Exam: ATRAUMATIC, NORMAL INSPECTION, NORMOCEPHALIC - Eye Exam Eye Exam: EOMI, Normal appearance, PERRL Pupil Exam: NORMAL ACCOMODATION, PERRL - ENT Exam ENT Exam: Mucous Membranes Moist, Normal Exam - Neck Exam Neck exam: Positive for: Normal Inspection - Respiratory Exam Respiratory Exam: Decreased Breath Sounds - Cardiovascular Exam Cardiovascular Exam: REGULAR RHYTHM, +S1, +S2 - GI/Abdominal Exam GI & Abdominal Exam: Diminished Bowel Sounds, Soft - Rectal Exam Rectal Exam: Deferred Results - Vital Signs Recent Vital Signs: Last Vital Signs Temp 98.8 F 02/16/17 08:13 Pulse 65 02/16/17 08:13 Resp 15 02/16/17 08:13 BP 112/65 02/16/17 08:13 Pulse Ox 99 02/16/17 08:13 - Labs Result Diagrams: 02/15/17 23:52 02/15/17 23:52 Labs: Laboratory Results - last 24 hr 02/16/17 02/16/17 07:16 08:20 POC Glucose (mg/dL) 108 Total Creatine Kinase 34 CK-MB (Mass) < 0.22 Troponin I, Quant < 0.0120
[2017-02-16] MEDS: POLYETHYLENE GLYCOL 3350 17 GM/Dose PACKET PO SCH ×2 (09:58→17:36)
[2017-02-16] MEDS ORDERED: Enoxaparin 40 mg Syringe SC SCH (10:00)
[2017-02-16] MEDS ORDERED: Pantoprazole 40 mg EC Tab PO SCH (10:00)
--- NOTE | 2017-02-16 10:01 | CARD ---
APPROVED REPORT EKG Measurement Heart [id number] PA [id number] <Conclusion> Normal sinus rhythm Normal ECG
[2017-02-16 16:39] VITALS: BP 121/63; RESP 19; TEMP 98.5; O2SAT 97
[2017-02-16 18:00] VITALS: PULSE 62
== END 2017-02-16 19:08 | disposition home or self-care (01) ==
LOC: C.ER 22:50 → C.9E 02-16 01:55 → C.9I 02-16 07:45
PROVIDERS: ADMIT Internal Medicine Nephrology; ATTEND Internal Medicine Nephrology
DX: R07.9 Chest pain, unspecified (principal); E78.00 Pure hypercholesterolemia, unspecified; I48.91 Unspecified atrial fibrillation; J44.9 Chronic obstructive pulmonary disease, unspecified; K21.9 Gastro-esophageal reflux disease without esophagitis
CPT/HCPCS: 71010; 80053; 82948; 83690; 84484; 85025; 87081; 93005; 96374; C9113; G0378; J1650; J1885; J7040

== ENCOUNTER 2017-02-26 19:22 | Inpatient (IN) | payer MEDICARE, MEDICAID ==
[2017-02-26 19:23] VITALS: BMI 42.4
[2017-02-26 20:19] LABS: BASO # 0.1 K/uL (0.0-0.2); EOS # 0.2 K/uL (0.0-0.7); EOS % 2.5 % (0.0-4.0); HEMOGLOBIN 12.2 g/dL (11.0-16.0); LYMPH # 3.3 K/uL (1.0-4.3); LYMPH % 40.3 % (20.0-40.0); MEAN CELL VOLUME 77.1 fL (81.0-99.0); MEAN CORPUSCULAR HEMOGLOBIN 24.6 pg (27.0-31.0); MEAN CORPUSCULAR HGB CONC 31.9 g/dL (33.0-37.0); MEAN PLATELET VOLUME 9.2 fL (7.2-11.7); MONO # 0.7 K/uL (0.0-0.8); NEUT # 3.9 K/uL (1.8-7.0); NEUT % 48.2 % (50.0-75.0); RBC 4.96 Mil/uL (3.80-5.20); RED CELL DISTRIBUTION WIDTH 16.7 % (11.5-14.5); WHITE BLOOD COUNT 8.1 K/uL (4.8-10.8)
[2017-02-26 20:31] LABS: ALBUMIN 4.2 g/dL (3.5-5.0)
[2017-02-26 20:33] LABS: AST/SGOT 21 U/L (14-36); GFR AFRICAN-AMERICAN > 60; GFR NON-AFRICAN AMERICAN > 60
[2017-02-26 20:34] LABS: ALT/SGPT 21 U/L (9-52); BLOOD UREA NITROGEN 17 mg/dL (7-17); CALCIUM 9.5 mg/dl (8.6-10.4)
[2017-02-26 20:41] LABS: CK-MB 0.37 ng/mL (0.0-3.38)
[2017-02-26 21:02] LABS: INR 1.1; PROTHROMBIN TIME 12.5 SECONDS (9.7-12.2)
[2017-02-26] MEDS ORDERED: Potassium Chloride 20 mEq/15 ml LIQ UD PO STA (21:02)
--- NOTE | 2017-02-26 21:02 | C.PDOC ---
History Of Present Illness 56 year old female with a Hx of obesity, tachycardia and a-fib who presents to the ER with a complaint of chest pain and palpitations. Patient had a cardiac cath done 2 months ago that was clean. She is a patient of Dr. Khalil; . Patient states she went to [facility] with her family on 02/24; however, she began to have difficulty getting around, hyperventilation, and numbness to the hands. Patient notes the following day she had residual symptoms. On arrival she had a heart rate of 139 bpm, denies vomiting or fever. Time Seen by Provider: 02/26/17 20:17 Chief Complaint (Nursing): Chest Pain History Per: Patient History/Exam Limitations: no limitations Onset/Duration Of Symptoms: Hrs Current Symptoms Are (Timing): Still Present Quality: Pressure Associated Symptoms: Nausea Modifying Factors: None Exacerbating Factors: None Alleviating Factors: None Recent travel outside of the [place]: No Past Medical History Reviewed: Historical Data, Nursing Documentation, Vital Signs Vital Signs: Last Vital Signs Temp 98.2 F 02/26/17 22:57 Pulse 75 02/26/17 22:57 Resp 18 02/26/17 22:57 BP 117/62 02/26/17 22:57 Pulse Ox 98 02/26/17 23:34 - Medical History PMH: Anxiety, Arthritis (hands), Atrial Fibrillation, CAD, Cardia Arrhythmia, CHF, COPD, Depression, Diabetes (hypoglycemia), Gastritis, Gall Bladder Disease , HTN, Hypercholesterolemia Surgical History: Cholecystectomy, Coronary Stent (x2) Family History: States: Unknown Family Hx - Social History Hx Tobacco Use: Yes (QUIT) Hx Alcohol Use: No Hx Substance Use: No - Immunization History Hx Tetanus Toxoid Vaccination: No Hx Influenza Vaccination: No Hx Pneumococcal Vaccination: No Review Of Systems Constitutional: Negative for: Fever Cardiovascular: Positive for: Chest Pain, Palpitations Gastrointestinal: Positive for: Nausea. Negative for: Vomiting Physical Exam - Physical Exam Appears: Non-toxic Skin: Normal Color, Warm, Dry Head: Atraumatic, Normacephalic Oral Mucosa: Moist Chest: Symmetrical, No Tenderness Cardiovascular: Rhythm Regular, No Murmur Respiratory: Normal Breath Sounds, No Rales, No Rhonchi, No Wheezing Gastrointestinal/Abdominal: Soft, No Tenderness Extremity: Normal ROM (x4), No Pedal Edema Neurological/Psych: Oriented x3, Normal Speech, Normal Cognition ED Course And Treatment - Laboratory Results Result Diagrams: 02/26/17 20:14 02/26/17 20:14 O2 Sat by Pulse Oximetry: 98 (Room air) Pulse Ox Interpretation: Normal Medical Decision Making Medical Decision Making: Plan: * EKG * CXR * Zofran * Potassium Troponin lab results were negative; spoke with Dr. Khalil who agrees with plan to discharge home. Patient very anxious. Repeat EKG shows tachycardia. Spoke with Dr. Robertson, covering for DR. Michael, agrees to keep Obs and rule out. Disposition Discussed With : Conner Robertson Doctor Will See Patient In The: Hospital Counseled Patient/Family Regarding: Studies Performed, Diagnosis - Disposition Disposition: HOSPITALIZED Disposition Time: 23:31 Condition: GUARDED - Clinical Impression Clinical Impression: Chest pain at rest, Tachycardia - Scribe Statement The provider has reviewed the documentation as recorded by the Scribjeevan Cha All medical record entries made by the Scribe were at my direction and personally dictated by me. I have reviewed the chart and agree that the record accurately reflects my personal performance of the history, physical exam, medical decision making, and the department course for this patient. I have also personally directed, reviewed, and agree with the discharge instructions and disposition. Decision To Admit - Pt Status Changed To: Hospital Disposition Of: Observation - . Bed Request Type: Telemetry Patient Diagnosis: Chest pain at rest, Tachycardia
[2017-02-26] MEDS ORDERED: Potassium Chloride 20 mEq ER Tab PO ONE (21:07)
[2017-02-27] MEDS ORDERED: Albuterol-Ipratrop 3 mg / 0.5 (3 ml) UD INH PRN (01:20)
[2017-02-27 02:11] LABS: CK-MB < 0.22 ng/mL (0.0-3.38)
[2017-02-27] MEDS: (Novolog) Insulin Aspart, Recombinant 100 u/ml 10 ml vial SC SCH ×4 (07:45→22:24)
[2017-02-27 08:52] LABS: CK-MB 0.42 ng/mL (0.0-3.38)
--- NOTE | 2017-02-27 09:37 | RAD ---
HISTORY: chest pain asthma COMPARISON: 02/15/2017 FINDINGS: LUNGS: Mild venous congestion. PLEURA: No significant pleural effusion identified, no pneumothorax apparent. CARDIOVASCULAR: Normal. OSSEOUS STRUCTURES: No significant abnormalities. VISUALIZED UPPER ABDOMEN: Normal. OTHER FINDINGS: None. IMPRESSION: Mild venous congestion.
[2017-02-27] MEDS: Enoxaparin 40 mg Syringe SC SCH (10:46)
[2017-02-27] MEDS: POLYETHYLENE GLYCOL 3350 17 GM/Dose PACKET PO SCH ×2 (15:05→17:59)
--- NOTE | 2017-02-27 15:58 | CP.PCM.CON ---
History of Present Illness - History of Present Illness History of Present Illness: 56 y/o F w/ pmhx of obesity, HTN, HLD, Anxiety, SUNDAY on CPAP, AFib, CAD s/p stent (x2), hx of SVT, CHF, COPD, Depression, DM, GERD who p/w complaint of chest pain and palpitations. She states that for many months now she has been periods of tachycardia and palpitations. She states that most recently she was at [facility] over the holiday weekend and experienced several episodes of tachycardia, SOB, palpitations and associated numbness in her hands b/l. She tried to lower her heart rate by resting however was not able to and states that she perceived her heart rate continue to be elevated despite rest. Pt has been extensively reviewed by several cardiologists and has had multiple ER visits for similar array of symptoms. She had a cardiac cath done 2 months ago that did not exhibit any pertinent findings. Upon questioning pt is tearful and anxious. She verbally expresses that she needs help because she is dying and no one can find what is wrong with her heart. PMH: HTN, HLD, Anxiety, SUNDAY on CPAP, AFib, CAD s/p stent (x2), hx of SVT, CHF, COPD, Depression, DM, GERD Surgical History: Cholecystectomy, Coronary Stent (x2), ?ablation for SVT Family History: States: Unknown Family Hx Allergies- Flu shot:angioedema MEDs: as per MAR Social hx: quit tobacco in 2007, no illicit drug use/ETOH Review of Systems - Constitutional Constitutional: absent: Chills, Fever - Cardiovascular Cardiovascular: Chest Pain, Palpitations, Rapid Heart Rate - Respiratory Respiratory: Dyspnea, Dyspnea on Exertion - Gastrointestinal Gastrointestinal: Dyspepsia. absent: Constipation, Diarrhea, Vomiting - Neurological Neurological: Numbness, Tingling Additional comments: numbness and tingling in the hands b/l Past Patient History - Infectious Disease Hx of Infectious Diseases: None - Tetanus Immunizations Tetanus Immunization: Unknown - Past Medical History & Family History Past Medical History?: Yes - Past Social History Smoking Status: Former Smoker Alcohol: None Drugs: Denies - CARDIAC Hx Atrial Fibrillation: Yes Hx Cardia Arrhythmia: Yes Hx Congestive Heart Failure: Yes Hx Hypercholesterolemia: Yes Hx Hypertension: Yes - PULMONARY Hx Chronic Obstructive Pulmonary Disease (COPD): Yes - NEUROLOGICAL HX Cerebrovascular Accident: Yes - HEENT Hx HEENT Problems: No - RENAL Hx Chronic Kidney Disease: No - ENDOCRINE/METABOLIC Hx Diabetes Mellitus Type 1: Yes - HEMATOLOGICAL/ONCOLOGICAL Hx Blood Disorders: No - INTEGUMENTARY Hx Eczema: Yes - MUSCULOSKELETAL/RHEUMATOLOGICAL Hx Arthritis: Yes (hands) Hx Falls: No - GASTROINTESTINAL Hx Gall Bladder Disease: Yes Hx Gastritis: Yes - GENITOURINARY/GYNECOLOGICAL Hx Genitourinary Disorders: No - PSYCHIATRIC Hx Anxiety: Yes Hx Depression: Yes Hx Substance Use: No - SURGICAL HISTORY Hx Cholecystectomy: Yes Hx Coronary Stent: Yes (x2) - ANESTHESIA Hx Anesthesia: Yes Hx Anesthesia Reactions: No Meds Allergies/Adverse Reactions: Allergies Allergy/AdvReac Type Severity Reaction Status Date / Time Flu vaccine Allergy Uncoded 02/26/17 19:42 pnuemonia vaccine Allergy Uncoded 02/26/17 19:42 wool Allergy Uncoded 02/26/17 19:42 - Medications Medications: Current Medications Albuterol/Ipratropium (Duoneb 3 Mg/0.5 Mg (3 Ml) Ud) 3 ml INH RQ6 PRN PRN Reason: Shortness of Breath Aspirin (Ecotrin) 81 mg PO DAILY [facility] Last Admin: 02/27/17 10:41 Dose: 81 mg Clonazepam (Klonopin) 1 mg PO TID [facility] Last Admin: 02/27/17 14:51 Dose: 1 mg Diltiazem HCl (Cardizem) 30 mg PO BID [facility] Last Admin: 02/27/17 10:40 Dose: 30 mg Docusate Sodium (Colace) 100 mg PO TID [facility] Last Admin: 02/27/17 14:51 Dose: 100 mg Enoxaparin Sodium (Lovenox) 40 mg SC DAILY [facility] Last Admin: 02/27/17 10:46 Dose: 40 mg Escitalopram Oxalate (Lexapro) 10 mg PO DAILY [facility] Last Admin: 02/27/17 10:45 Dose: Not Given Ferrous Sulfate (Feosol) 325 mg PO BID [facility] Last Admin: 02/27/17 10:40 Dose: Not Given Hydrochlorothiazide (Hydrodiuril) 25 mg PO DAILY [facility] Last Admin: 02/27/17 10:40 Dose: Not Given Insulin Aspart (Novolog) 0 unit SC [facility] PRN Reason: Protocol Last Admin: 02/27/17 15:34 Dose: Not Given Losartan Potassium (Cozaar) 50 mg PO DAILY [facility] Last Admin: 02/27/17 10:40 Dose: 50 mg Metformin HCl (Glucophage) 500 mg PO BID [facility] Last Admin: 02/27/17 10:40 Dose: Not Given Metoprolol Tartrate (Lopressor) 25 mg PO Q12 [facility] Last Admin: 02/27/17 10:41 Dose: 25 mg Montelukast Sodium (Singulair) 10 mg PO DAILY [facility] Last Admin: 02/27/17 10:40 Dose: 10 mg Polyethylene Glycol (Miralax) 17 gm PO BID [facility] Last Admin: 02/27/17 15:05 Dose: 17 gm Rosuvastatin Calcium (Crestor) 20 mg PO HS [facility] Sucralfate (Carafate Tab) 1 gm PO TID [facility] Last Admin: 02/27/17 14:51 Dose: 1 gm Physical Exam - Constitutional Appears: Agitated Additional comments: tearful and anxious - Head Exam Head Exam: ATRAUMATIC - Eye Exam Eye Exam: EOMI, Normal appearance - ENT Exam ENT Exam: Mucous Membranes Moist - Respiratory Exam Respiratory Exam: Chest Wall Tenderness, Clear to Auscultation Bilateral. absent: Rales, Rhonchi, Wheezes Additional comments: chest wall is TTP on L - Cardiovascular Exam Cardiovascular Exam: REGULAR RHYTHM - Extremities Exam Extremities exam: Positive for: pedal edema Additional comments: mild - Neurological Exam Neurological exam: Alert, Oriented x3 - Psychiatric Exam Psychiatric exam: Agitated, Anxious Results - Vital Signs Recent Vital Signs: Last Vital Signs Temp 98.2 F 02/26/17 22:57 Pulse 68 02/27/17 05:25 Resp 18 02/27/17 05:25 BP 112/65 02/27/17 05:25 Pulse Ox 98 02/27/17 05:25 - Labs Result Diagrams: 02/26/17 20:14 02/26/17 20:14 Labs: Laboratory Results - last 24 hr 02/27/17 02/27/17 02/27/17 01:32 07:15 08:24 POC Glucose (mg/dL) 118 H Total Creatine Kinase 62 62 CK-MB (Mass) < 0.22 0.42 Troponin I, Quant < 0.0120 < 0.0120 02/27/17 11:45 POC Glucose (mg/dL) 114 H Total Creatine Kinase CK-MB (Mass) Troponin I, Quant - EKG Data EKG Interpreted by: Myself EKG shows normal: Sinus rhythm Rate: Normal Assessment & Plan - Assessment and Plan (Free Text) Assessment: 56 y/o F w/ pmhx of obesity, HTN, HLD, Anxiety, SUNDAY on CPAP, AFib, CAD s/p stent (x2), hx of SVT, CHF, COPD, Depression, DM, GERD who p/w complaint of chest pain and palpitations Plan: 1. Chest pain with associated palpitations and dyspnea -EKG shows NSR -ANGELIKA negative x3 This patient has had extensive workup for cardiogenic causes of her symptoms which have confirmed proper cardiovascular functioning. It is likely that she is suffering from symptoms of anxiety, however she is finding this diagnosis unacceptable and insists that there is something manifestly wrong. case discussed with Dr. Khalil
--- NOTE | 2017-02-27 17:04 | CARD ---
APPROVED REPORT EKG Measurement Heart [id number] <Conclusion> Sinus tachycardia Otherwise normal ECG
--- NOTE | 2017-02-27 17:05 | CARD ---
APPROVED REPORT EKG Measurement Heart [id number] OR [id number] <Conclusion> Sinus tachycardia Otherwise normal ECG
--- NOTE | 2017-02-27 18:27 | CP.PCM.HP ---
History of Present Illness - History of Present Illness History of Present Illness: 56 year old female with a Hx of obesity, tachycardia and a-fib who presents to the ER with a complaint of chest pain and palpitations. Patient had a cardiac cath done 2 months ago that was clean. She is a patient of Dr. Khalil; . Patient states she went to [facility] with her family on 02/24; however, she began to have difficulty getting around, hyperventilation, and numbness to the hands. Patient notes the following day she had residual symptoms. On arrival she had a heart rate of 139 bpm, denies vomiting or fever. Present on Admission - Present on Admission Any Indicators Present on Admission: No History of DVT/PE: No History of Uncontrolled Diabetes: No Urinary Catheter: No Decubitus Ulcer Present: No Review of Systems - Review of Systems All systems: reviewed and no additional remarkable complaints except (as per HPI ) Past Patient History - Infectious Disease Hx of Infectious Diseases: None - Tetanus Immunizations Tetanus Immunization: Unknown - Past Medical History & Family History Past Medical History?: Yes - Past Social History Smoking Status: Former Smoker Alcohol: None Drugs: Denies - CARDIAC Hx Atrial Fibrillation: Yes Hx Cardia Arrhythmia: Yes Hx Congestive Heart Failure: Yes Hx Hypercholesterolemia: Yes Hx Hypertension: Yes - PULMONARY Hx Chronic Obstructive Pulmonary Disease (COPD): Yes - NEUROLOGICAL HX Cerebrovascular Accident: Yes - HEENT Hx HEENT Problems: No - RENAL Hx Chronic Kidney Disease: No - ENDOCRINE/METABOLIC Hx Diabetes Mellitus Type 1: Yes - HEMATOLOGICAL/ONCOLOGICAL Hx Blood Disorders: No - INTEGUMENTARY Hx Eczema: Yes - MUSCULOSKELETAL/RHEUMATOLOGICAL Hx Arthritis: Yes (hands) Hx Falls: No - GASTROINTESTINAL Hx Gall Bladder Disease: Yes Hx Gastritis: Yes - GENITOURINARY/GYNECOLOGICAL Hx Genitourinary Disorders: No - PSYCHIATRIC Hx Anxiety: Yes Hx Depression: Yes Hx Substance Use: No - SURGICAL HISTORY Hx Cholecystectomy: Yes Hx Coronary Stent: Yes (x2) - ANESTHESIA Hx Anesthesia: Yes Hx Anesthesia Reactions: No Meds Allergies/Adverse Reactions: Allergies Allergy/AdvReac Type Severity Reaction Status Date / Time Flu vaccine Allergy Uncoded 02/26/17 19:42 pnuemonia vaccine Allergy Uncoded 02/26/17 19:42 wool Allergy Uncoded 02/26/17 19:42 Physical Exam - Eye Exam Eye Exam: Normal appearance - ENT Exam ENT Exam: Mucous Membranes Moist - Neck Exam Neck exam: Positive for: Normal Inspection - Respiratory Exam Respiratory Exam: Clear to Auscultation Bilateral, NORMAL BREATHING PATTERN - Cardiovascular Exam Cardiovascular Exam: REGULAR RHYTHM, +S1, +S2 - GI/Abdominal Exam GI & Abdominal Exam: Normal Bowel Sounds, Soft - Extremities Exam Extremities exam: Positive for: normal inspection - Neurological Exam Neurological exam: Alert, Normal Gait, Oriented x3 - Psychiatric Exam Psychiatric exam: Normal Affect, Normal Mood - Skin Skin Exam: Normal Color, Warm Results - Vital Signs Recent Vital Signs: Last Vital Signs Temp 97.9 F 02/27/17 17:45 Pulse 73 02/27/17 17:59 Resp 20 02/27/17 17:45 BP 115/66 02/27/17 17:59 Pulse Ox 96 02/27/17 17:45 - Labs Result Diagrams: 02/26/17 20:14 02/26/17 20:14 Labs: Laboratory Results - last 24 hr 02/27/17 02/27/17 02/27/17 01:32 07:15 08:24 POC Glucose (mg/dL) 118 H Total Creatine Kinase 62 62 CK-MB (Mass) < 0.22 0.42 Troponin I, Quant < 0.0120 < 0.0120 02/27/17 02/27/17 11:45 17:04 POC Glucose (mg/dL) 114 H 97 Total Creatine Kinase CK-MB (Mass) Troponin I, Quant Assessment & Plan - Assessment and Plan (Free Text) Assessment: Atypical CP Panic disorder/anxiety Hx of cardiac arrhythmias HTN DM Pt is ruled out for MS No arrhythmias noted Cardiology consult appreciated continue metoprolol and cardizem Psyche consult Continue lexapre and clonazepam
--- NOTE | 2017-02-28 07:25 | CP.PCM.PN ---
Subjective - Date & Time of Evaluation Date of Evaluation: 02/28/17 Time of Evaluation: 07:25 Objective - Vital Signs/Intake and Output Vital Signs (last 24 hours): Temp Pulse Resp BP Pulse Ox 98 F 72 20 110/70 96 02/27/17 23:25 02/27/17 23:25 02/27/17 23:25 02/27/17 23:25 02/27/17 23:25 Intake and Output: 02/28/17 02/28/17 06:59 18:59 Intake Total 380 Balance 380 - Medications Medications: Current Medications Albuterol/Ipratropium (Duoneb 3 Mg/0.5 Mg (3 Ml) Ud) 3 ml INH RQ6 PRN PRN Reason: Shortness of Breath Aspirin (Ecotrin) 81 mg PO DAILY [facility] Last Admin: 02/27/17 10:41 Dose: 81 mg Clonazepam (Klonopin) 1 mg PO TID [facility] Last Admin: 02/27/17 17:58 Dose: 1 mg Diltiazem HCl (Cardizem) 30 mg PO BID [facility] Last Admin: 02/27/17 17:58 Dose: 30 mg Docusate Sodium (Colace) 100 mg PO TID [facility] Last Admin: 02/27/17 17:58 Dose: 100 mg Enoxaparin Sodium (Lovenox) 40 mg SC DAILY [facility] Last Admin: 02/27/17 10:46 Dose: 40 mg Escitalopram Oxalate (Lexapro) 10 mg PO DAILY [facility] Last Admin: 02/27/17 10:45 Dose: Not Given Ferrous Sulfate (Feosol) 325 mg PO BID [facility] Last Admin: 02/27/17 17:59 Dose: Not Given Hydrochlorothiazide (Hydrodiuril) 25 mg PO DAILY [facility] Last Admin: 02/27/17 10:40 Dose: Not Given Insulin Aspart (Novolog) 0 unit SC [facility] PRN Reason: Protocol Last Admin: 02/27/17 22:24 Dose: Not Given Losartan Potassium (Cozaar) 50 mg PO DAILY [facility] Last Admin: 02/27/17 10:40 Dose: 50 mg Metformin HCl (Glucophage) 500 mg PO BID [facility] Last Admin: 02/27/17 17:59 Dose: Not Given Metoprolol Tartrate (Lopressor) 25 mg PO Q12 [facility] Last Admin: 02/27/17 22:34 Dose: Not Given Montelukast Sodium (Singulair) 10 mg PO DAILY [facility] Last Admin: 02/27/17 10:40 Dose: 10 mg Polyethylene Glycol (Miralax) 17 gm PO BID [facility] Last Admin: 02/27/17 17:59 Dose: Not Given Rosuvastatin Calcium (Crestor) 20 mg PO HS [facility] Last Admin: 02/27/17 22:24 Dose: 20 mg Sucralfate (Carafate Tab) 1 gm PO TID [facility] Last Admin: 02/27/17 17:58 Dose: 1 gm - Labs Labs: PT 12.5 SECONDS (9.7-12.2) H 02/26/17 20:14 INR 1.1 02/26/17 20:14 APTT 28 SECONDS (21-34) 02/26/17 20:14
[2017-02-28] MEDS: (Novolog) Insulin Aspart, Recombinant 100 u/ml 10 ml vial SC SCH ×4 (08:11→23:30)
[2017-02-28] MEDS: Enoxaparin 40 mg Syringe SC SCH (09:36)
[2017-02-28] MEDS: POLYETHYLENE GLYCOL 3350 17 GM/Dose PACKET PO SCH ×2 (09:38→18:31)
--- NOTE | 2017-02-28 13:10 | CP.PCM.PN ---
Subjective - Date & Time of Evaluation Date of Evaluation: 02/28/17 Time of Evaluation: 13:06 - Subjective Subjective: Pt seen and examined Still very anxious Reports that her HR increased to 135 with exertion this am Objective - Vital Signs/Intake and Output Vital Signs (last 24 hours): Temp Pulse Resp BP Pulse Ox 97.7 F 76 20 113/75 98 02/28/17 07:00 02/28/17 07:00 02/28/17 07:00 02/28/17 07:00 02/28/17 07:00 - Medications Medications: Current Medications Albuterol/Ipratropium (Duoneb 3 Mg/0.5 Mg (3 Ml) Ud) 3 ml INH RQ6 PRN PRN Reason: Shortness of Breath Aspirin (Ecotrin) 81 mg PO DAILY [facility] Last Admin: 02/28/17 09:33 Dose: 81 mg Clonazepam (Klonopin) 1 mg PO TID [facility] Last Admin: 02/28/17 09:34 Dose: 1 mg Diltiazem HCl (Cardizem) 30 mg PO BID [facility] Last Admin: 02/28/17 09:33 Dose: 30 mg Docusate Sodium (Colace) 100 mg PO TID [facility] Last Admin: 02/28/17 09:33 Dose: 100 mg Enoxaparin Sodium (Lovenox) 40 mg SC DAILY [facility] Last Admin: 02/28/17 09:36 Dose: 40 mg Escitalopram Oxalate (Lexapro) 10 mg PO DAILY [facility] Last Admin: 02/28/17 09:35 Dose: Not Given Ferrous Sulfate (Feosol) 325 mg PO BID [facility] Last Admin: 02/28/17 09:35 Dose: Not Given Insulin Aspart (Novolog) 0 unit SC [facility] PRN Reason: Protocol Last Admin: 02/28/17 11:50 Dose: Not Given Metformin HCl (Glucophage) 500 mg PO BID [facility] Last Admin: 02/28/17 09:36 Dose: Not Given Metoprolol Tartrate (Lopressor) 50 mg PO Q12 [facility] Montelukast Sodium (Singulair) 10 mg PO DAILY [facility] Last Admin: 02/28/17 09:35 Dose: 10 mg Polyethylene Glycol (Miralax) 17 gm PO BID [facility] Last Admin: 02/28/17 09:38 Dose: Not Given Rosuvastatin Calcium (Crestor) 20 mg PO HS [facility] Last Admin: 02/27/17 22:24 Dose: 20 mg Sucralfate (Carafate Tab) 1 gm PO TID [facility] Last Admin: 02/28/17 09:34 Dose: 1 gm - Labs Labs: PT 12.5 SECONDS (9.7-12.2) H 02/26/17 20:14 INR 1.1 02/26/17 20:14 APTT 28 SECONDS (21-34) 02/26/17 20:14 - Head Exam Head Exam: NORMAL INSPECTION - Eye Exam Eye Exam: Normal appearance - ENT Exam ENT Exam: Mucous Membranes Moist - Respiratory Exam Respiratory Exam: Clear to Ausculation Bilateral, NORMAL BREATHING PATTERN - Cardiovascular Exam Cardiovascular Exam: REGULAR RHYTHM, +S1, +S2 - GI/Abdominal Exam GI & Abdominal Exam: Soft, Normal Bowel Sounds - Extremities Exam Extremities Exam: Normal Inspection Assessment and Plan - Assessment and Plan (Free Text) Assessment: Atypical CP Panic disorder/Severe generalized anxiety Hx of cardiac arrhythmias HTN DM Increase Metoprolol to 50 mg Q12 hrs d/c christie inhibitor and HCTZ No arrhythmias noted Make pt as full admission Psyche consult Continue lexapre and clonazepam
--- NOTE | 2017-02-28 16:00 | PCM.PSYCH ---
Initial Psychiatric Evaluation - Initial Psychiatric Evaluation Type of Admission: Voluntary Legal Status: Capacity Chief Complaint (in patient's own words): "My heart races" History of Present Illness and Precipitating Events: The patient is seen, chart reviewed and case discussed. Consultation was requested because of patient's anxiety and medication overuse. This is a 56-year-old -[place] female, single with 4 adult children. She lives with 3 of them and is on disability due to multiple medical problems. The patient is here because she had unexplained significant tachycardia. She states she feels short of breath and has palpitations when she walks. It happens on and off. She denies losing consciousness or falling. She is currently on 3 mg Klonopin for the past 9 years. She is somewhat aware of the risks of benzos but she claims all the other medications including BuSpar , gabapentin, Lexapro, Cymbalta and some other SSRIs made her "worse." However, the patient is currently on Lexapro 10 mg. She also claims she is going to [facility] counseling services in [place] for many years. She receives psychotherapy every other week. She reports history of excessive anxiety, restlessness, panic attacks, worrying a lot, mild depressive symptoms. Most anxiety symptoms continue despite being on high-dose Klonopin. She denies all other substance or alcohol use. She denies any stressors in her life and feels like other than her medical conditions she is stress free. Past psych history: No admissions, only outpatient treatment. No suicide attempts. Used multiple medications. Family psych history: Denies Medical history: COPD, heart problems, diabetes, disc hernia Current Medications: Active Medications Generic Name Dose Route Start Last Admin Trade Name Freq PRN Reason Stop Dose Admin Albuterol/Ipratropium 3 ml 02/27/17 01:20 Duoneb 3 Mg/0.5 Mg (3 Ml) Ud INH RQ6 PRN Shortness of Breath Aspirin 81 mg 02/27/17 10:00 02/28/17 09:33 Ecotrin PO 81 mg DAILY [facility] Administration Clonazepam 1 mg 02/27/17 10:02/28/17 13:50 Klonopin PO 1 mg TID [facility] Administration Diltiazem HCl 30 mg 02/27/17 10:00 02/28/17 09:33 Cardizem PO 30 mg BID [facility] Administration Docusate Sodium 100 mg 02/27/17 10:00 02/28/17 13:56 Colace PO 100 mg TID [facility] Administration Enoxaparin Sodium 40 mg 02/27/17 10:00 02/28/17 09:36 Lovenox SC 40 mg DAILY [facility] Administration Escitalopram Oxalate 10 mg 02/27/17 10:00 02/28/17 09:35 Lexapro PO Not Given DAILY [facility] Ferrous Sulfate 325 mg 02/27/17 10:00 02/28/17 09:35 Feosol PO Not Given BID [facility] Insulin Aspart 0 unit 02/27/17 07:30 02/28/17 11:50 Novolog SC Not Given [facility]S [facility] Protocol Metformin HCl 500 mg 02/27/17 10:00 02/28/17 09:36 Glucophage PO Not Given BID [facility] Metoprolol Tartrate 50 mg 02/28/17 13:15 02/28/17 13:52 Lopressor PO 50 mg Q12 [facility] Administration Montelukast Sodium 10 mg 02/27/17 10:00 02/28/17 09:35 Singulair PO 10 mg DAILY [facility] Administration Polyethylene Glycol 17 gm 02/27/17 10:00 02/28/17 09:38 Miralax PO Not Given BID [facility] Rosuvastatin Calcium 20 mg 02/27/17 22:00 02/27/17 22:24 Crestor PO 20 mg HS [facility] Administration Sucralfate 1 gm 02/27/17 10:00 02/28/17 13:50 Carafate Tab PO 1 gm TID [facility] Administration Past Psychiatric History - Past Psychiatric History Previous Treatment History: Intensive Outpatient Pertinent Medical Hx (Current Medical&Sleep Prob, Allergies): Allergies Allergy/AdvReac Type Severity Reaction Status Date / Time Flu vaccine Allergy Uncoded 02/26/17 19:42 pnuemonia vaccine Allergy Uncoded 02/26/17 19:42 wool Allergy Uncoded 02/26/17 19:42 Albuterol HFA [Ventolin HFA 90 mcg/actuation (8 g)] 2 puff IH [id number] PRN #1 inhaler 10/13/13 Aspirin [Aspir 81] 81 mg PO DAILY 10/13/13 metFORMIN [glucOPHAGE] 500 mg PO DAILY PRN 01/10/17 Escitalopram [Lexapro] 10 mg PO DAILY #30 tab 01/14/17 Ferrous Sulfate [Feosol] 325 mg PO BID #60 tab 01/14/17 Losartan [Cozaar] 50 mg PO BID #60 tab 01/14/17 Montelukast [Singulair] 10 mg PO DAILY #30 01/14/17 Sucralfate [Carafate] 1 gm PO TID #90 01/14/17 clonazePAM [Klonopin] 1 mg PO TID tab 01/14/17 hydroCHLOROthiazide [Hydrodiuril] 25 mg PO DAILY #30 tab 01/14/17 Docusate [Colace] 100 mg PO TID #20 cap 01/22/17 Metoprolol Tartrate [Lopressor] 12.5 mg PO Q12 #28 tab 01/22/17 Polyethylene Glycol 3350 [Miralax] 17 gm PO BID #20 powd.pack 01/22/17 diltiaZEM [Cardizem] 30 mg PO BID #28 tab 01/22/17 Review of Systems - Psychiatric Psychiatric: Abnormal Sleep Pattern, Anxiety, Irritability. absent: Hallucinations, Homicidal Ideation, Paranoia, Suicidal Ideation Mental Status Examination - Personal Presentation Personal Presentation: Looks stated age - Affect Affect: Constricted - Motor Activity Motor Activity: Calm - Reliability in Providing Information Reliability in Providing Information: Fair - Speech Speech: Organized - Mood Mood: Anxious - Formal Thought Process Formal Thought Process: No Impairment - Cognitive Functions Orientation: Person, Place, Situation, Time Sensorium: Alert Estimate of Intelligence: Average Judgement: Intact, as evidence by: Insight regarding need for hospitalization Memory: Recent intact, as evidence by: Ability to recall events of the day, Remote intact, as evidenced by: Abilit to recall sig. life events - Risk Risk: Seizure, Withdrawal, Diminished functioning - Strength & Assets Inventory Strength & Assets Inventory: Family support, Cooperative DSM 5 DX - DSM 5 DSM 5 Diagnosis: WILLIAM Panic d/o - without agoraphobia r/o depressive d/o r/o sedative hypnotic and anxiolytic use d/o - moderate - Recommended/Plan of Treatment Treatment Recommendations and Plan of Treatment: Continue Lexapro Continue klonopin for now but she is advised to lower and taper off very slowly with a psychiatrist's help, i.e. 0.5 mg per month decrease. She understood and will discuss with her MD Support and psychoed Gabapentin can be added for pain/anxiety control or Lyrica Her treatment needs to go on as an outpatient as it requires [facility] treatment Pls call if you have any specific questions 34 min
[2017-03-01] MEDS: (Novolog) Insulin Aspart, Recombinant 100 u/ml 10 ml vial SC SCH ×4 (07:13→21:55)
[2017-03-01] MEDS: Enoxaparin 40 mg Syringe SC SCH (09:13)
[2017-03-01] MEDS: POLYETHYLENE GLYCOL 3350 17 GM/Dose PACKET PO SCH ×3 (09:21→18:57)
[2017-03-01] MEDS ORDERED: Simethicone 80 mg Chewtab PO PRN (14:21)
[2017-03-01] MEDS ORDERED: Magnesium Citrate Oral SOL (300 ml) PO ONE (14:21)
--- NOTE | 2017-03-01 14:26 | CP.PCM.PN ---
Subjective - Date & Time of Evaluation Date of Evaluation: 03/01/17 Time of Evaluation: 14:10 - Subjective Subjective: House resident note called down to evaluate patient complaining of abdominal pain. Patient reports she feels distended and has not moved her bowels in 4 days. She says she has received miralax, lactulose. Patient appears comfortable, abdomen is soft. Will give simethicone and one dose of magnesium citrate. Nursing instructed to inform primary doctor. Objective - Vital Signs/Intake and Output Vital Signs (last 24 hours): Temp Pulse Resp BP Pulse Ox 98.0 F 78 18 110/63 98 02/28/17 23:15 03/01/17 06:00 03/01/17 06:00 03/01/17 06:00 02/28/17 23:15 Intake and Output: 03/01/17 03/01/17 06:59 18:59 Intake Total 480 Balance 480 - Medications Medications: Current Medications Albuterol/Ipratropium (Duoneb 3 Mg/0.5 Mg (3 Ml) Ud) 3 ml INH RQ6 PRN PRN Reason: Shortness of Breath Aspirin (Ecotrin) 81 mg PO DAILY [facility] Last Admin: 03/01/17 10:03 Dose: 81 mg Clonazepam (Klonopin) 1 mg PO TID [facility] Last Admin: 03/01/17 13:20 Dose: 1 mg Diltiazem HCl (Cardizem) 30 mg PO BID [facility] Last Admin: 03/01/17 10:03 Dose: 30 mg Docusate Sodium (Colace) 100 mg PO TID [facility] Last Admin: 03/01/17 13:20 Dose: 100 mg Enoxaparin Sodium (Lovenox) 40 mg SC DAILY [facility] Last Admin: 03/01/17 09:13 Dose: 40 mg Escitalopram Oxalate (Lexapro) 10 mg PO DAILY [facility] Last Admin: 03/01/17 09:21 Dose: Not Given Ferrous Sulfate (Feosol) 325 mg PO BID [facility] Last Admin: 03/01/17 09:21 Dose: Not Given Insulin Aspart (Novolog) 0 unit SC [facility] PRN Reason: Protocol Last Admin: 03/01/17 12:19 Dose: Not Given Magnesium Citrate (Citrate Of Mag) 300 ml PO ONCE ONE Stop: 03/01/17 14:22 Metformin HCl (Glucophage) 500 mg PO BID [facility] Last Admin: 03/01/17 09:21 Dose: Not Given Metoprolol Tartrate (Lopressor) 50 mg PO Q12 [facility] Last Admin: 03/01/17 10:02 Dose: 50 mg Montelukast Sodium (Singulair) 10 mg PO HS [facility] Last Admin: 02/28/17 22:17 Dose: 10 mg Polyethylene Glycol (Miralax) 17 gm PO BID [facility] Last Admin: 03/01/17 12:50 Dose: 17 gm Rosuvastatin Calcium (Crestor) 20 mg PO [facility] Last Admin: 02/28/17 22:17 Dose: 20 mg Simethicone (Mylicon Chew Tab) 80 mg PO Q6H PRN PRN Reason: GI distress Sucralfate (Carafate Tab) 1 gm PO TID [facility] Last Admin: 03/01/17 13:20 Dose: 1 gm - Labs Labs: PT 12.5 SECONDS (9.7-12.2) H 02/26/17 20:14 INR 1.1 02/26/17 20:14 APTT 28 SECONDS (21-34) 02/26/17 20:14
--- NOTE | 2017-03-01 16:05 | CP.PCM.PN ---
Subjective - Date & Time of Evaluation Date of Evaluation: 03/01/17 Time of Evaluation: 16:05 Objective - Vital Signs/Intake and Output Vital Signs (last 24 hours): Temp Pulse Resp BP Pulse Ox 98.0 F 78 18 110/63 98 02/28/17 23:15 03/01/17 06:00 03/01/17 06:00 03/01/17 06:00 02/28/17 23:15 Intake and Output: 03/01/17 03/01/17 06:59 18:59 Intake Total 480 Balance 480 - Medications Medications: Current Medications Albuterol/Ipratropium (Duoneb 3 Mg/0.5 Mg (3 Ml) Ud) 3 ml INH RQ6 PRN PRN Reason: Shortness of Breath Aspirin (Ecotrin) 81 mg PO DAILY [facility] Last Admin: 03/01/17 10:03 Dose: 81 mg Clonazepam (Klonopin) 1 mg PO TID [facility] Last Admin: 03/01/17 13:20 Dose: 1 mg Diltiazem HCl (Cardizem) 30 mg PO BID [facility] Last Admin: 03/01/17 10:03 Dose: 30 mg Docusate Sodium (Colace) 100 mg PO TID [facility] Last Admin: 03/01/17 13:20 Dose: 100 mg Enoxaparin Sodium (Lovenox) 40 mg SC DAILY [facility] Last Admin: 03/01/17 09:13 Dose: 40 mg Escitalopram Oxalate (Lexapro) 10 mg PO DAILY [facility] Last Admin: 03/01/17 09:21 Dose: Not Given Ferrous Sulfate (Feosol) 325 mg PO BID [facility] Last Admin: 03/01/17 09:21 Dose: Not Given Insulin Aspart (Novolog) 0 unit SC [facility] PRN Reason: Protocol Last Admin: 03/01/17 12:19 Dose: Not Given Metformin HCl (Glucophage) 500 mg PO BID [facility] Last Admin: 03/01/17 09:21 Dose: Not Given Metoprolol Tartrate (Lopressor) 50 mg PO Q12 [facility] Last Admin: 03/01/17 10:02 Dose: 50 mg Montelukast Sodium (Singulair) 10 mg PO HS [facility] Last Admin: 02/28/17 22:17 Dose: 10 mg Polyethylene Glycol (Miralax) 17 gm PO BID [facility] Last Admin: 03/01/17 12:50 Dose: 17 gm Rosuvastatin Calcium (Crestor) 20 mg PO HS [facility] Last Admin: 02/28/17 22:17 Dose: 20 mg Simethicone (Mylicon Chew Tab) 80 mg PO Q6H PRN PRN Reason: GI distress Sucralfate (Carafate Tab) 1 gm PO TID [facility] Last Admin: 03/01/17 13:20 Dose: 1 gm - Labs Labs: PT 12.5 SECONDS (9.7-12.2) H 02/26/17 20:14 INR 1.1 02/26/17 20:14 APTT 28 SECONDS (21-34) 02/26/17 20:14
[2017-03-01 16:16] VITALS: RESP 20
[2017-03-02] MEDS: (Novolog) Insulin Aspart, Recombinant 100 u/ml 10 ml vial SC SCH ×2 (07:30→11:30)
--- NOTE | 2017-03-02 08:03 | CP.PCM.PN ---
Subjective - Date & Time of Evaluation Date of Evaluation: 03/02/17 Time of Evaluation: 08:00 - Subjective Subjective: Cardiology progress note for Dr. Khalil Patient seen and examined at bedside. She was tearful on exam and was not eager to be discharged. Patient continues to be concerned regarding "her heart" despite being counseled multiple times that previous work up and work up on this admission has been negative. Patient complained of her abdominal pain and constipation. Denied fever, chills, headache, dizziness, SOB, pain/swelling in her legs bilaterally. Objective - Vital Signs/Intake and Output Vital Signs (last 24 hours): Temp Pulse Resp BP Pulse Ox 98.0 F 68 20 115/79 95 03/01/17 23:15 03/02/17 01:00 03/01/17 23:15 03/02/17 04:05 03/01/17 23:15 Intake and Output: 03/02/17 03/02/17 06:59 18:59 Intake Total 400 Balance 400 - Medications Medications: Current Medications Albuterol/Ipratropium (Duoneb 3 Mg/0.5 Mg (3 Ml) Ud) 3 ml INH RQ6 PRN PRN Reason: Shortness of Breath Aspirin (Ecotrin) 81 mg PO DAILY [facility] Last Admin: 03/01/17 10:03 Dose: 81 mg Clonazepam (Klonopin) 1 mg PO TID [facility] Last Admin: 03/01/17 18:57 Dose: 1 mg Diltiazem HCl (Cardizem) 30 mg PO BID [facility] Last Admin: 03/01/17 18:57 Dose: Not Given Docusate Sodium (Colace) 100 mg PO TID [facility] Last Admin: 03/01/17 18:57 Dose: 100 mg Enoxaparin Sodium (Lovenox) 40 mg SC DAILY [facility] Last Admin: 03/01/17 09:13 Dose: 40 mg Escitalopram Oxalate (Lexapro) 10 mg PO DAILY [facility] Last Admin: 03/01/17 09:21 Dose: Not Given Ferrous Sulfate (Feosol) 325 mg PO BID [facility] Last Admin: 03/01/17 18:57 Dose: Not Given Insulin Aspart (Novolog) 0 unit SC [facility] PRN Reason: Protocol Last Admin: 03/01/17 21:55 Dose: Not Given Metformin HCl (Glucophage) 500 mg PO BID [facility] Last Admin: 03/01/17 18:57 Dose: Not Given Metoprolol Tartrate (Lopressor) 50 mg PO Q12 [facility] Last Admin: 03/01/17 21:52 Dose: 50 mg Montelukast Sodium (Singulair) 10 mg PO [facility] Last Admin: 03/01/17 21:52 Dose: 10 mg Polyethylene Glycol (Miralax) 17 gm PO BID [facility] Last Admin: 03/01/17 18:57 Dose: Not Given Rosuvastatin Calcium (Crestor) 20 mg PO [facility] Last Admin: 03/01/17 21:52 Dose: 20 mg Simethicone (Mylicon Chew Tab) 80 mg PO Q6H PRN PRN Reason: GI distress Sucralfate (Carafate Tab) 1 gm PO TID [facility] Last Admin: 03/01/17 18:57 Dose: 1 gm - Labs Labs: PT 12.5 SECONDS (9.7-12.2) H 02/26/17 20:14 INR 1.1 02/26/17 20:14 APTT 28 SECONDS (21-34) 02/26/17 20:14 - Constitutional Appears: Non-toxic, No Acute Distress, Other (tearful) - Head Exam Head Exam: ATRAUMATIC, NORMAL INSPECTION, NORMOCEPHALIC - Eye Exam Eye Exam: EOMI, Normal appearance. absent: Conjunctival injection, Scleral icterus - ENT Exam ENT Exam: Mucous Membranes Moist - Respiratory Exam Respiratory Exam: Clear to Ausculation Bilateral, NORMAL BREATHING PATTERN. absent: Accessory Muscle Use, Rales, Rhonchi, Wheezes, Respiratory Distress - Cardiovascular Exam Cardiovascular Exam: REGULAR RHYTHM, RRR, +S1, +S2. absent: Murmur - GI/Abdominal Exam GI & Abdominal Exam: Soft, Tenderness (diffuse to palpation), Normal Bowel Sounds. absent: Firm, Guarding, Rigid - Extremities Exam Extremities Exam: Pedal Edema (trace) - Neurological Exam Neurological Exam: Alert, Awake, Oriented x3 - Psychiatric Exam Psychiatric exam: Anxious (tearful) - Skin Skin Exam: Dry, Intact, Normal Color, Warm Assessment and Plan - Assessment and Plan (Free Text) Assessment: 56 y/o F w/ pmhx of obesity, HTN, HLD, Anxiety, SUNDAY on CPAP, AFib, CAD s/p stent (x2), hx of SVT, CHF, COPD, Depression, DM, GERD who p/w complaint of chest pain and palpitations. Cardiology consulted for tachycardia and chest pain. Plan: -EKG showed NSR on admission -ANGELIKA negative x3 -Patient had cardiac cath in December 2016 that was unremarkable -Patient has had extensive cardiac workup for similar complaints of multiple admissions that have confirmed proper cardiovascular functioning. -ASA 81mg po daily -Cardizem 30mg po bid -Lopressor 12,5mg po bid -Crestor 20mg po hs Cardiology will sign off at this time Please continue current management Thank you for the consult; please reconsult if necessary Case discussed with Dr. Simran Vieira PGY2
[2017-03-02 08:28] VITALS: BP 113/78; PULSE 75; TEMP 97.5; O2SAT 97
[2017-03-02] MEDS: Enoxaparin 40 mg Syringe SC SCH (09:16)
[2017-03-02] MEDS: POLYETHYLENE GLYCOL 3350 17 GM/Dose PACKET PO SCH (10:00)
--- NOTE | 2017-03-02 10:58 | CARD ---
APPROVED REPORT EKG Measurement Heart [id number] UT 152P14 [id number] <Conclusion> Normal sinus rhythm Normal ECG
--- NOTE | 2017-03-02 10:59 | CARD ---
APPROVED REPORT EKG Measurement Heart [id number] DC 150P25 [id number] <Conclusion> Normal sinus rhythm Normal ECG
[2017-03-02 12:12] LABS: BASO # 0.1 K/uL (0.0-0.2); BASO % 0.9 % (0.0-2.0); EOS # 0.2 K/uL (0.0-0.7); EOS % 3.7 % (0.0-4.0); HEMOGLOBIN 10.4 g/dL (11.0-16.0); LYMPH % 35.7 % (20.0-40.0); MEAN CELL VOLUME 77.8 fL (81.0-99.0); MEAN CORPUSCULAR HEMOGLOBIN 24.8 pg (27.0-31.0); MEAN CORPUSCULAR HGB CONC 31.9 g/dL (33.0-37.0); MEAN PLATELET VOLUME 9.3 fL (7.2-11.7); MONO # 0.4 K/uL (0.0-0.8); MONO % 7.4 % (0.0-10.0); NEUT # 2.9 K/uL (1.8-7.0); NEUT % 52.3 % (50.0-75.0); RBC 4.19 Mil/uL (3.80-5.20); RED CELL DISTRIBUTION WIDTH 16.5 % (11.5-14.5); WHITE BLOOD COUNT 5.5 K/uL (4.8-10.8)
[2017-03-02 12:20] LABS: ALBUMIN 3.6 g/dL (3.5-5.0)
[2017-03-02 12:22] LABS: GFR AFRICAN-AMERICAN > 60; GFR NON-AFRICAN AMERICAN > 60
[2017-03-02 12:23] LABS: ALB/GLOB RATIO 1.1 (1.0-2.1); ALT/SGPT 31 U/L (9-52); AST/SGOT 18 U/L (14-36); BLOOD UREA NITROGEN 15 mg/dL (7-17)
[2017-03-02 12:24] LABS: CALCIUM 9.2 mg/dl (8.6-10.4)
--- NOTE | 2017-03-02 15:22 | CP.PCM.PN ---
Objective - Vital Signs/Intake and Output Vital Signs (last 24 hours): Temp Pulse Resp BP Pulse Ox 97.5 F L 75 20 113/78 97 03/02/17 08:26 03/02/17 08:26 03/02/17 08:26 03/02/17 08:26 03/02/17 08:26 Intake and Output: 03/02/17 03/02/17 06:59 18:59 Intake Total 400 Balance 400 - Medications Medications: Current Medications Albuterol/Ipratropium (Duoneb 3 Mg/0.5 Mg (3 Ml) Ud) 3 ml INH RQ6 PRN PRN Reason: Shortness of Breath Aspirin (Ecotrin) 81 mg PO DAILY [facility] Last Admin: 03/02/17 09:15 Dose: 81 mg Clonazepam (Klonopin) 1 mg PO TID [facility] Last Admin: 03/02/17 14:32 Dose: 1 mg Diltiazem HCl (Cardizem) 30 mg PO BID [facility] Last Admin: 03/02/17 09:14 Dose: 30 mg Docusate Sodium (Colace) 100 mg PO TID [facility] Last Admin: 03/02/17 14:32 Dose: 100 mg Enoxaparin Sodium (Lovenox) 40 mg SC DAILY [facility] Last Admin: 03/02/17 09:16 Dose: 40 mg Escitalopram Oxalate (Lexapro) 10 mg PO DAILY [facility] Last Admin: 03/02/17 10:00 Dose: Not Given Ferrous Sulfate (Feosol) 325 mg PO BID [facility] Last Admin: 03/02/17 09:14 Dose: Not Given Insulin Aspart (Novolog) 0 unit SC [facility] PRN Reason: Protocol Last Admin: 03/02/17 11:30 Dose: Not Given Metformin HCl (Glucophage) 500 mg PO BID [facility] Last Admin: 03/02/17 09:13 Dose: Not Given Metoprolol Tartrate (Lopressor) 50 mg PO Q12 [facility] Last Admin: 03/02/17 09:15 Dose: 50 mg Montelukast Sodium (Singulair) 10 mg PO [facility] Last Admin: 03/01/17 21:52 Dose: 10 mg Polyethylene Glycol (Miralax) 17 gm PO BID [facility] Last Admin: 03/02/17 10:00 Dose: Not Given Rosuvastatin Calcium (Crestor) 20 mg PO [facility] Last Admin: 03/01/17 21:52 Dose: 20 mg Simethicone (Mylicon Chew Tab) 80 mg PO Q6H PRN PRN Reason: GI distress Sucralfate (Carafate Tab) 1 gm PO TID [facility] Last Admin: 03/02/17 14:31 Dose: 1 gm - Labs Labs: 03/02/17 11:49 03/02/17 11:49 PT 12.5 SECONDS (9.7-12.2) H 02/26/17 20:14 INR 1.1 02/26/17 20:14 APTT 28 SECONDS (21-34) 02/26/17 20:14
[2017-03-02] MEDS ORDERED: Potassium Chloride 20 mEq ER Tab PO STA (15:30)
--- NOTE | 2017-03-02 16:52 | CP.PCM.PN ---
Subjective - Date & Time of Evaluation Date of Evaluation: 03/02/17 Time of Evaluation: 16:50 - Subjective Subjective: 56 y/o female seen and examined, admitted for Atypical CP, Panic disorder/ Severe generalized anxiety, Hx of cardiac arrhythmias, HTN, DM aaox3, denies any cp, sob, palpitations, resp easy and unlabored. NAD Increase Metoprolol to 50 mg Q12 hrs d/c christie inhibitor and HCTZ No arrhythmias noted Psyche consult Continue lexapre and clonazepam follow up with PMD, oupt psych consult. Objective - Vital Signs/Intake and Output Vital Signs (last 24 hours): Temp Pulse Resp BP Pulse Ox 97.5 F L 75 20 113/78 97 03/02/17 08:26 03/02/17 08:26 03/02/17 08:26 03/02/17 08:26 03/02/17 08:26 Intake and Output: 03/02/17 03/02/17 06:59 18:59 Intake Total 400 Balance 400 - Medications Medications: Current Medications Albuterol/Ipratropium (Duoneb 3 Mg/0.5 Mg (3 Ml) Ud) 3 ml INH RQ6 PRN PRN Reason: Shortness of Breath Aspirin (Ecotrin) 81 mg PO DAILY [facility] Last Admin: 03/02/17 09:15 Dose: 81 mg Clonazepam (Klonopin) 1 mg PO TID [facility] Last Admin: 03/02/17 14:32 Dose: 1 mg Diltiazem HCl (Cardizem) 30 mg PO BID [facility] Last Admin: 03/02/17 09:14 Dose: 30 mg Docusate Sodium (Colace) 100 mg PO TID [facility] Last Admin: 03/02/17 14:32 Dose: 100 mg Enoxaparin Sodium (Lovenox) 40 mg SC DAILY [facility] Last Admin: 03/02/17 09:16 Dose: 40 mg Escitalopram Oxalate (Lexapro) 10 mg PO DAILY [facility] Last Admin: 03/02/17 10:00 Dose: Not Given Ferrous Sulfate (Feosol) 325 mg PO BID [facility] Last Admin: 03/02/17 09:14 Dose: Not Given Insulin Aspart (Novolog) 0 unit SC [facility] PRN Reason: Protocol Last Admin: 03/02/17 11:30 Dose: Not Given Metformin HCl (Glucophage) 500 mg PO BID [facility] Last Admin: 03/02/17 09:13 Dose: Not Given Metoprolol Tartrate (Lopressor) 50 mg PO Q12 [facility] Last Admin: 03/02/17 09:15 Dose: 50 mg Montelukast Sodium (Singulair) 10 mg PO HS [facility] Last Admin: 03/01/17 21:52 Dose: 10 mg Polyethylene Glycol (Miralax) 17 gm PO BID [facility] Last Admin: 03/02/17 10:00 Dose: Not Given Rosuvastatin Calcium (Crestor) 20 mg PO [facility] Last Admin: 03/01/17 21:52 Dose: 20 mg Simethicone (Mylicon Chew Tab) 80 mg PO Q6H PRN PRN Reason: GI distress Sucralfate (Carafate Tab) 1 gm PO TID [facility] Last Admin: 03/02/17 14:31 Dose: 1 gm - Labs Labs: 03/02/17 11:49 03/02/17 11:49 PT 12.5 SECONDS (9.7-12.2) H 02/26/17 20:14 INR 1.1 02/26/17 20:14 APTT 28 SECONDS (21-34) 02/26/17 20:14
--- NOTE | 2017-03-02 18:09 | CP.PCM.DIS ---
Provider - Provider Date of Admission: 02/28/17 10:39 Attending physician: Conner Pinto MD Time Spent in preparation of Discharge (in minutes): 25 Diagnosis - Discharge Diagnosis (1) Anxiety Status: Acute (2) Chest pain Status: Acute (3) SOB (shortness of breath) Status: Acute (4) Palpitations Status: Chronic Hospital Course - Lab Results Lab Results: Most Recent Lab Values WBC 5.5 K/uL (4.8-10.8) 03/02/17 11:49 RBC 4.19 Mil/uL (3.80-5.20) 03/02/17 11:49 Hgb 10.4 g/dL (11.0-16.0) L 03/02/17 11:49 Hct 32.6 % (34.0-47.0) L 03/02/17 11:49 MCV 77.8 fL (81.0-99.0) L 03/02/17 11:49 MCH 24.8 pg (27.0-31.0) L 03/02/17 11:49 MCHC 31.9 g/dL (33.0-37.0) L 03/02/17 11:49 RDW 16.5 % (11.5-14.5) H 03/02/17 11:49 Plt Count 284 K/uL (130-400) D 03/02/17 11:49 MPV 9.3 fL (7.2-11.7) 03/02/17 11:49 Neut % (Auto) 52.3 % (50.0-75.0) 03/02/17 11:49 Lymph % (Auto) 35.7 % (20.0-40.0) 03/02/17 11:49 [place] % (Auto) 7.4 % (0.0-10.0) 03/02/17 11:49 Eos % (Auto) 3.7 % (0.0-4.0) 03/02/17 11:49 Baso % (Auto) 0.9 % (0.0-2.0) 03/02/17 11:49 Neut # 2.9 K/uL (1.8-7.0) 03/02/17 11:49 Lymph # 2.0 K/uL (1.0-4.3) 03/02/17 11:49 [place] # 0.4 K/uL (0.0-0.8) 03/02/17 11:49 Eos # 0.2 K/uL (0.0-0.7) 03/02/17 11:49 Baso # 0.1 K/uL (0.0-0.2) 03/02/17 11:49 PT 12.5 SECONDS (9.7-12.2) H 02/26/17 20:14 INR 1.1 02/26/17 20:14 APTT 28 SECONDS (21-34) 02/26/17 20:14 Sodium 143 mmol/L (132-148) 03/02/17 11:49 Potassium 3.4 mmol/L (3.6-5.2) L 03/02/17 11:49 Chloride 106 mmol/L (98-107) 03/02/17 11:49 Carbon Dioxide 27 mmol/L (22-30) 03/02/17 11:49 Anion Gap 13 (10-20) 03/02/17 11:49 BUN 15 mg/dL (7-17) 03/02/17 11:49 Creatinine 0.9 MG/DL (0.7-1.2) 03/02/17 11:49 Est GFR ( Amer) > 60 03/02/17 11:49 Est GFR (Non-Af Amer) > 60 03/02/17 11:49 POC Glucose (mg/dL) 141 mg/dL (65-110) H 03/02/17 11:49 Random Glucose 103 mg/dL (65-105) 03/02/17 11:49 Calcium 9.2 mg/dl (8.6-10.4) 03/02/17 11:49 Total Bilirubin 0.4 mg/dL (0.2-1.3) 03/02/17 11:49 AST 18 U/L (14-36) 03/02/17 11:49 ALT 31 U/L (9-52) 03/02/17 11:49 Alkaline Phosphatase 81 U/L (38-126) 03/02/17 11:49 Total Creatine Kinase 62 U/L (30-135) 02/27/17 08:24 CK-MB (Mass) 0.42 ng/mL (0.0-3.38) 02/27/17 08:24 Troponin I, Quant < 0.0120 ng/mL (0.00-0.120) 02/27/17 08:24 Total Protein 7.0 g/dL (6.3-8.3) 03/02/17 11:49 Albumin 3.6 g/dL (3.5-5.0) 03/02/17 11:49 Globulin 3.4 gm/dL (2.2-3.9) 03/02/17 11:49 Albumin/Globulin Ratio 1.1 (1.0-2.1) 03/02/17 11:49 - Hospital Course Hospital Course: CP ruled out Cardiology evaluation done Psyche evaluation Discharge Exam - Head Exam Head Exam: ATRAUMATIC, NORMAL INSPECTION, NORMOCEPHALIC - Eye Exam Eye Exam: Normal appearance - Respiratory Exam Respiratory Exam: Clear to PA & Lateral, NORMAL BREATHING PATTERN - Cardiovascular Exam Cardiovascular Exam: REGULAR RHYTHM, +S1, +S2 - GI/Abdominal Exam GI & Abdominal Exam: Normal Bowel Sounds, Soft - Extremities Exam Extremities exam: normal inspection - Neurological Exam Neurological exam: Alert, Oriented x3 Discharge Plan - Discharge Medications Prescriptions: Metoprolol Tartrate [Lopressor] 50 mg PO Q12 #60 tab - Follow Up Plan Condition: GUARDED Disposition: HOME/ ROUTINE Instructions: Heart Failure (DC), Chest Pain (DC), Palpitations (DC), Heart Healthy Diet (DC), Anxiety (DC) Additional Instructions: FOLLOW UP WITH YOUR PMD IN 1-2 DAYS--CALL FOR AN APPOINTMENT FOLLOW UP WITH DR HENRY IN THE OFFICE IN 2-3 DAYS -- CALL FOR AN APPOINTMENT FOLLOW UP WITH DR KHALIL IN THE OFFICE IN 2-3 DAYS-- CALL FOR AN APPOINTMENT CONTINUE MEDS PER MED REC STOP TAKING HYDROCHLOROTHIAZIDE AND LOSARTAN PER DR PINTO METOPROLOL 50 MG PO BID PER DR PINTO RETURN TO ER IF ANY CHEST PAIN, SHORTNESS OF BREATH, PALPITATION OR ANY CONCERNING SYMPTOMS Referrals: Farrukh Khalil MD [Staff Provider] - Conner Pinto MD [Staff Provider] - Ken Henry MD [Staff Provider] -
== END 2017-03-02 17:10 | disposition home or self-care (01) | DRG 880 ==
LOC: C.ER 19:22 → C.9E 23:32 → C.6T 02-27 07:41 → OBSVTOIN 02-28 10:39
PROVIDERS: ADMIT Internal Medicine Critical Care Medicine; ATTEND Internal Medicine Critical Care Medicine
DX: F41.1 Generalized anxiety disorder (principal); I11.0 Hypertensive heart disease with heart failure; I50.9 Heart failure, unspecified; R00.2 Palpitations; F41.0 Panic disorder [episodic paroxysmal anxiety]; E78.00 Pure hypercholesterolemia, unspecified; E78.5 Hyperlipidemia, unspecified; E11.9 Type 2 diabetes mellitus without complications; G47.33 Obstructive sleep apnea (adult) (pediatric); I25.10 Atherosclerotic heart disease of native coronary artery without angina pectoris; I48.91 Unspecified atrial fibrillation; J44.9 Chronic obstructive pulmonary disease, unspecified; Z79.899 Other long term (current) drug therapy; Z87.891 Personal history of nicotine dependence; Z95.5 Presence of coronary angioplasty implant and graft; K59.00 Constipation, unspecified; K21.9 Gastro-esophageal reflux disease without esophagitis; R07.9 Chest pain, unspecified

== ENCOUNTER 2017-06-01 21:33 | Observation (INO) | payer MEDICARE, MEDICAID ==
[2017-06-01 21:33] VITALS: BMI 42.4
--- NOTE | 2017-06-01 22:38 | C.PDOC ---
History Of Present Illness Patient presents to ED with complaints of chest pain, nausea and intermittent lightheadedness since this morning. Patient reports she took her palpitation medication (Metoprolol) prior to arrival and states her heart rate "goes up to 150-160" at times. No other complaints at this time. Time Seen by Provider: 06/01/17 22:37 Chief Complaint (Nursing): Chest Pain History Per: Patient History/Exam Limitations: no limitations Onset/Duration Of Symptoms: Hrs Current Symptoms Are (Timing): Still Present Severity: Mild Quality: "Pain" Associated Symptoms: Nausea Modifying Factors: None Exacerbating Factors: None Past Medical History Reviewed: Historical Data, Nursing Documentation, Vital Signs Vital Signs: Last Vital Signs Temp 97.9 F 06/01/17 21:42 Pulse 58 L 06/01/17 23:35 Resp 15 06/01/17 23:35 BP 108/56 L 06/01/17 23:43 Pulse Ox 98 06/01/17 23:35 - Medical History PMH: Anxiety, Arthritis (hands), Atrial Fibrillation, CAD, Cardia Arrhythmia, CHF, COPD, Depression, Diabetes (hypoglycemia), Gastritis, Gall Bladder Disease , HTN, Hypercholesterolemia Surgical History: Cholecystectomy, Coronary Stent (x2) Family History: States: No Known Family Hx - Social History Hx Tobacco Use: Yes (QUIT) Hx Alcohol Use: No Hx Substance Use: No - Immunization History Hx Tetanus Toxoid Vaccination: No Hx Influenza Vaccination: No Hx Pneumococcal Vaccination: No Review Of Systems Constitutional: Negative for: Fever, Chills Cardiovascular: Positive for: Chest Pain. Negative for: Palpitations Respiratory: Negative for: Shortness of Breath Gastrointestinal: Positive for: Nausea Skin: Negative for: Rash Neurological: Negative for: Weakness, Numbness Physical Exam - Physical Exam Appears: Non-toxic, Other (Anxious appearing) Skin: Warm, Dry, No Rash Head: Normacephalic Oral Mucosa: Moist Neck: Supple Chest: Symmetrical Cardiovascular: Rhythm Regular Respiratory: No Rales, No Rhonchi, No Wheezing Gastrointestinal/Abdominal: Soft, No Tenderness, No Guarding, No Rebound Extremity: No Pedal Edema, Capillary Refill (<2 seconds) Neurological/Psych: Oriented x3 ED Course And Treatment - Laboratory Results Result Diagrams: 06/01/17 22:44 06/01/17 22:44 ECG: Interpreted By Me, Viewed By Me ECG Rhythm: Sinus Rhythm (76), Nonspecific Changes O2 Sat by Pulse Oximetry: 97 (RA) Pulse Ox Interpretation: Normal - Radiology CXR: Interpreted by Me, Viewed By Me Disposition Discussed With Dr.: Bladimir Zuñiga Comment: accepted the pt on his service and took over the care at 12:05AM Doctor Will See Patient In The: Hospital Counseled Patient/Family Regarding: Studies Performed, Diagnosis - Disposition Disposition: HOSPITALIZED Disposition Time: 22:38 Condition: FAIR Forms: [facility] ([place]) - Clinical Impression Clinical Impression: Chest pain, Palpitations - Scribe Statement The provider has reviewed the documentation as recorded by the Scribe Parveen Thacker All medical record entries made by the Manjulaibe were at my direction and personally dictated by me. I have reviewed the chart and agree that the record accurately reflects my personal performance of the history, physical exam, medical decision making, and the department course for this patient. I have also personally directed, reviewed, and agree with the discharge instructions and disposition. Decision To Admit - Pt Status Changed To: Hospital Disposition Of: Observation - . Bed Request Type: Telemetry Admitting Physician: Bladimir Zuñiga Patient Diagnosis: Chest pain, Palpitations
[2017-06-01] MEDS ORDERED: Aspirin 325 mg EC Tablets PO STA (22:43)
[2017-06-01] MEDS ORDERED: Aspirin 325 mg EC Tablets PO ONE (22:50)
[2017-06-01 22:53] LABS: BASO # 0.1 K/uL (0.0-0.2); BASO % 0.6 % (0.0-2.0); EOS # 0.3 K/uL (0.0-0.7); EOS % 3.1 % (0.0-4.0); HEMATOCRIT 34.1 % (34.0-47.0); LYMPH # 2.6 K/uL (1.0-4.3); LYMPH % 25.5 % (20.0-40.0); MEAN CELL VOLUME 79.4 fL (81.0-99.0); MEAN CORPUSCULAR HEMOGLOBIN 26.3 pg (27.0-31.0); MEAN CORPUSCULAR HGB CONC 33.2 g/dL (33.0-37.0); MEAN PLATELET VOLUME 8.9 fL (7.2-11.7); MONO # 0.5 K/uL (0.0-0.8); RED CELL DISTRIBUTION WIDTH 16.1 % (11.5-14.5)
[2017-06-01 23:01] LABS: CHLORIDE 102 mmol/L (98-107)
[2017-06-01 23:02] LABS: POTASSIUM 3.4 mmol/L (3.6-5.2); SODIUM 135 mmol/L (132-148)
[2017-06-01 23:03] LABS: INR 1.1
[2017-06-01 23:04] LABS: ALB/GLOB RATIO 1.1 (1.0-2.1); ALKALINE PHOSPHATASE 82 U/L (38-126); ALT/SGPT 26 U/L (9-52); AST/SGOT 14 U/L (14-36); BILIRUBIN,TOTAL 0.4 mg/dL (0.2-1.3); BLOOD UREA NITROGEN 17 mg/dL (7-17); CALCIUM 8.9 mg/dl (8.6-10.4); CARBON DIOXIDE 21 mmol/L (22-30); GFR AFRICAN-AMERICAN > 60; GLUCOSE,RANDOM 127 mg/dL (65-105); TOTAL PROTEIN 7.7 g/dL (6.3-8.3)
[2017-06-01 23:41] LABS: RBC URINE < 1 /hpf (0-3); URINE BACTERIA RARE (<OCC); URINE BILIRUBIN NEGATIVE (NEGATIVE); URINE BLOOD NEGATIVE (NEGATIVE); URINE COLOR Yellow (YELLOW); URINE GLUCOSE (UA) NORMAL (Normal); URINE KETONE NEGATIVE (NEGATIVE); URINE LEUKOCYTE ESTERASE TRACE Leu/uL (Negative); URINE PROTEIN NEGATIVE (NEGATIVE); WBC URINE 1 /hpf (0-5)
--- NOTE | 2017-06-02 07:52 | RAD ---
HISTORY: chest pain COMPARISON: Chest x-ray 02/26/2017 TECHNIQUE: Chest one view . FINDINGS: LUNGS: No focal consolidation is seen. PLEURA: No pleural effusion is identified. CARDIOVASCULAR: Heart size is within normal limits. OSSEOUS STRUCTURES: No acute fracture identified. Stable degenerative changes bilateral humeral heads with possible calcifications in the bilateral shoulder joints. VISUALIZED UPPER ABDOMEN: Unremarkable. OTHER FINDINGS: None. IMPRESSION: No acute cardiopulmonary process seen.
[2017-06-02] MEDS ORDERED: Albuterol HFA 90 mcg/actuation (8 g) IH PRN (09:27)
[2017-06-02] MEDS ORDERED: TELMISARTAN PO PRN (09:27)
[2017-06-02] MEDS ORDERED: HYDROCHLOROTHIAZID PO PRN (09:27)
[2017-06-02] MEDS ORDERED: Home Med 1 UNIT (Omeprazole [Omeprazole] 20 MG) PO SCH (10:00)
[2017-06-02] MEDS: POLYETHYLENE GLYCOL 3350 17 GM/Dose PACKET PO SCH ×2 (11:38→19:05)
[2017-06-02] MEDS: Simethicone 80 mg Chewtab PO SCH ×3 (11:42→19:05)
[2017-06-02 14:42] LABS: T4 14.7 ug/dL (5.5-11.0)
[2017-06-02] MEDS ORDERED: Clotrimazole/Betamethasone Cream(15 gm) TOP PRN (16:03)
--- NOTE | 2017-06-02 19:04 | CP.PCM.CON ---
Past Patient History - Infectious Disease Hx of Infectious Diseases: None - Tetanus Immunizations Tetanus Immunization: Unknown - Past Medical History & Family History Past Medical History?: Yes - Past Social History Smoking Status: Never Smoked - CARDIAC Hx Atrial Fibrillation: Yes Hx Cardia Arrhythmia: Yes Hx Congestive Heart Failure: Yes Hx Hypercholesterolemia: Yes Hx Hypertension: Yes - PULMONARY Hx Chronic Obstructive Pulmonary Disease (COPD): Yes - NEUROLOGICAL HX Cerebrovascular Accident: Yes - HEENT Hx HEENT Problems: No Other/Comment: wears glasses for reading - RENAL Hx Chronic Kidney Disease: No - ENDOCRINE/METABOLIC Hx Diabetes Mellitus Type 1: Yes - HEMATOLOGICAL/ONCOLOGICAL Hx Blood Disorders: No - INTEGUMENTARY Hx Eczema: Yes - MUSCULOSKELETAL/RHEUMATOLOGICAL Hx Arthritis: Yes (hands) Hx Falls: No Other/Comment: ambulates with cane at home - GASTROINTESTINAL Hx Gall Bladder Disease: Yes Hx Gastritis: Yes - GENITOURINARY/GYNECOLOGICAL Hx Genitourinary Disorders: No - PSYCHIATRIC Hx Substance Use: No - SURGICAL HISTORY Hx Cholecystectomy: Yes Other/Comment: oblation x 2 - ANESTHESIA Hx Anesthesia: Yes Hx Anesthesia Reactions: No Meds Allergies/Adverse Reactions: Allergies Allergy/AdvReac Type Severity Reaction Status Date / Time escitalopram [From Lexapro] AdvReac Verified 06/02/17 01:13 Flu vaccine Allergy Uncoded 06/01/17 21:44 pnuemonia vaccine Allergy Uncoded 06/01/17 21:44 wool Allergy Uncoded 06/01/17 21:44 - Medications Medications: Current Medications Albuterol (Ventolin Hfa 90 Mcg/Actuation (8 G)) 2 puff IH RQ6 PRN PRN Reason: Cough Aspirin (Ecotrin) 81 mg PO DAILY [facility] Last Admin: 06/02/17 11:40 Dose: 81 mg Betamethasone/Clotrimazole (Lotrisone) 0 gm TOP PRN PRN PRN Reason: Itching / Pruritus Clonazepam (Klonopin) 1 mg PO TID [facility] Last Admin: 06/02/17 14:25 Dose: 1 mg Clopidogrel Bisulfate (Plavix) 75 mg PO DAILY [facility] Last Admin: 06/02/17 11:42 Dose: 75 mg Diltiazem HCl (Cardizem) 30 mg PO BID [facility] Last Admin: 06/02/17 11:41 Dose: Not Given Docusate Sodium (Colace) 100 mg PO DAILY [facility] Last Admin: 06/02/17 11:41 Dose: 100 mg Famotidine (Pepcid) 20 mg PO BID [facility] Last Admin: 06/02/17 11:42 Dose: 20 mg Hydrochlorothiazide (Microzide) 12.5 mg PO DAILY [facility] Last Admin: 06/02/17 11:41 Dose: 12.5 mg Losartan Potassium (Cozaar) 50 mg PO DAILY [facility] Last Admin: 06/02/17 11:41 Dose: Not Given Metformin HCl (Glucophage) 500 mg PO TID [facility] Last Admin: 06/02/17 14:25 Dose: Not Given Metoprolol Tartrate (Lopressor) 50 mg PO Q12 [facility] Last Admin: 06/02/17 11:41 Dose: Not Given Montelukast Sodium (Singulair) 10 mg PO QPM [facility] Polyethylene Glycol (Miralax) 17 gm PO BID [facility] Last Admin: 06/02/17 11:38 Dose: Not Given Simethicone (Mylicon Chew Tab) 80 mg PO TID [facility] Last Admin: 06/02/17 14:27 Dose: Not Given Sucralfate (Carafate Tab) 1 gm PO TID [facility] Last Admin: 06/02/17 14:26 Dose: 1 gm Results - Vital Signs Recent Vital Signs: Last Vital Signs Temp 97.7 F 06/02/17 15:00 Pulse 72 06/02/17 16:00 Resp 20 06/02/17 15:00 BP 109/71 06/02/17 15:00 Pulse Ox 94 L 06/02/17 15:00 - Labs Result Diagrams: 06/01/17 22:44 06/01/17 22:44 Labs: Laboratory Results - last 24 hr 06/01/17 06/01/17 06/01/17 22:44 22:44 22:44 WBC 10.0 D RBC 4.29 Hgb 11.3 Hct 34.1 MCV 79.4 L MCH 26.3 L MCHC 33.2 RDW 16.1 H Plt Count 272 MPV 8.9 Neut % (Auto) 65.8 Lymph % (Auto) 25.5 [place] % (Auto) 5.0 Eos % (Auto) 3.1 Baso % (Auto) 0.6 Neut # 6.6 Lymph # 2.6 [place] # 0.5 Eos # 0.3 Baso # 0.1 PT 12.2 INR 1.1 APTT 31 Sodium 135 Potassium 3.4 L Chloride 102 Carbon Dioxide 21 L Anion Gap 15 BUN 17 Creatinine 0.9 Est GFR ( Amer) > 60 Est GFR (Non-Af Amer) > 60 POC Glucose (mg/dL) Random Glucose 127 H Calcium 8.9 Total Bilirubin 0.4 AST 14 ALT 26 Alkaline Phosphatase 82 Total Creatine Kinase 48 CK-MB (Mass) < 0.22 Troponin I < 0.0120 Troponin I, Quant < 0.0120 NT-Pro-B Natriuret Pep 24.8 Total Protein 7.7 Albumin 3.9 Globulin 3.7 Albumin/Globulin Ratio 1.1 Thyroxine (T4) TSH 3rd Generation Urine Color Urine Clarity Urine pH Ur Specific [place] Urine Protein Urine Glucose (UA) Urine Ketones Urine Blood Urine Nitrate Urine Bilirubin Urine Urobilinogen Ur Leukocyte Esterase Urine WBC (Auto) Urine RBC (Auto) Ur Squamous Epith Cells Urine Bacteria 06/01/17 06/02/17 06/02/17 23:47 00:10 00:20 WBC RBC Hgb Hct MCV MCH MCHC RDW Plt Count MPV Neut % (Auto) Lymph % (Auto) [place] % (Auto) Eos % (Auto) Baso % (Auto) Neut # Lymph # [place] # Eos # Baso # PT INR APTT Sodium Potassium Chloride Carbon Dioxide Anion Gap BUN Creatinine Est GFR ( Amer) Est GFR (Non-Af Amer) POC Glucose (mg/dL) 82 Random Glucose Calcium Total Bilirubin AST ALT Alkaline Phosphatase Total Creatine Kinase CK-MB (Mass) Troponin I Troponin I, Quant NT-Pro-B Natriuret Pep Total Protein Albumin Globulin Albumin/Globulin Ratio Thyroxine (T4) TSH 3rd Generation 3.27 Urine Color Yellow Urine Clarity Clear Urine pH 5.0 Ur Specific [place] 1.026 Urine Protein Negative Urine Glucose (UA) Normal Urine Ketones Negative Urine Blood Negative Urine Nitrate Negative Urine Bilirubin Negative Urine Urobilinogen 2.0 H Ur Leukocyte Esterase Trace Urine WBC (Auto) 1 Urine RBC (Auto) < 1 Ur Squamous Epith Cells 4 Urine Bacteria Rare 06/02/17 06/02/17 06/02/17 03:01 05:45 06:56 WBC RBC Hgb Hct MCV MCH MCHC RDW Plt Count MPV Neut % (Auto) Lymph % (Auto) [place] % (Auto) Eos % (Auto) Baso % (Auto) Neut # Lymph # [place] # Eos # Baso # PT INR APTT Sodium Potassium Chloride Carbon Dioxide Anion Gap BUN Creatinine Est GFR ( Amer) Est GFR (Non-Af Amer) POC Glucose (mg/dL) 96 82 Random Glucose Calcium Total Bilirubin AST ALT Alkaline Phosphatase Total Creatine Kinase 51 CK-MB (Mass) 0.29 Troponin I Troponin I, Quant < 0.0120 NT-Pro-B Natriuret Pep Total Protein Albumin Globulin Albumin/Globulin Ratio Thyroxine (T4) 14.7 H TSH 3rd Generation Urine Color Urine Clarity Urine pH Ur Specific [place] Urine Protein Urine Glucose (UA) Urine Ketones Urine Blood Urine Nitrate Urine Bilirubin Urine Urobilinogen Ur Leukocyte Esterase Urine WBC (Auto) Urine RBC (Auto) Ur Squamous Epith Cells Urine Bacteria 06/02/17 06/02/17 06/02/17 09:01 11:48 14:35 WBC RBC Hgb Hct MCV MCH MCHC RDW Plt Count MPV Neut % (Auto) Lymph % (Auto) [place] % (Auto) Eos % (Auto) Baso % (Auto) Neut # Lymph # [place] # Eos # Baso # PT INR APTT Sodium Potassium Chloride Carbon Dioxide Anion Gap BUN Creatinine Est GFR ( Amer) Est GFR (Non-Af Amer) POC Glucose (mg/dL) 102 103 Random Glucose Calcium Total Bilirubin AST ALT Alkaline Phosphatase Total Creatine Kinase 50 CK-MB (Mass) 0.34 Troponin I Troponin I, Quant < 0.0120 NT-Pro-B Natriuret Pep Total Protein Albumin Globulin Albumin/Globulin Ratio Thyroxine (T4) TSH 3rd Generation Urine Color Urine Clarity Urine pH Ur Specific [place] Urine Protein Urine Glucose (UA) Urine Ketones Urine Blood Urine Nitrate Urine Bilirubin Urine Urobilinogen Ur Leukocyte Esterase Urine WBC (Auto) Urine RBC (Auto) Ur Squamous Epith Cells Urine Bacteria 06/02/17 16:29 WBC RBC Hgb Hct MCV MCH MCHC RDW Plt Count MPV Neut % (Auto) Lymph % (Auto) [place] % (Auto) Eos % (Auto) Baso % (Auto) Neut # Lymph # [place] # Eos # Baso # PT INR APTT Sodium Potassium Chloride Carbon Dioxide Anion Gap BUN Creatinine Est GFR ( Amer) Est GFR (Non-Af Amer) POC Glucose (mg/dL) 103 Random Glucose Calcium Total Bilirubin AST ALT Alkaline Phosphatase Total Creatine Kinase CK-MB (Mass) Troponin I Troponin I, Quant NT-Pro-B Natriuret Pep Total Protein Albumin Globulin Albumin/Globulin Ratio Thyroxine (T4) TSH 3rd Generation Urine Color Urine Clarity Urine pH Ur Specific [place] Urine Protein Urine Glucose (UA) Urine Ketones Urine Blood Urine Nitrate Urine Bilirubin Urine Urobilinogen Ur Leukocyte Esterase Urine WBC (Auto) Urine RBC (Auto) Ur Squamous Epith Cells Urine Bacteria
--- NOTE | 2017-06-02 19:07 | CP.PCM.HP ---
Past Patient History - Infectious Disease Hx of Infectious Diseases: None - Tetanus Immunizations Tetanus Immunization: Unknown - Past Medical History & Family History Past Medical History?: Yes - Past Social History Smoking Status: Never Smoked - CARDIAC Hx Atrial Fibrillation: Yes Hx Cardia Arrhythmia: Yes Hx Congestive Heart Failure: Yes Hx Hypercholesterolemia: Yes Hx Hypertension: Yes - PULMONARY Hx Chronic Obstructive Pulmonary Disease (COPD): Yes - NEUROLOGICAL HX Cerebrovascular Accident: Yes - HEENT Hx HEENT Problems: No Other/Comment: wears glasses for reading - RENAL Hx Chronic Kidney Disease: No - ENDOCRINE/METABOLIC Hx Diabetes Mellitus Type 1: Yes - HEMATOLOGICAL/ONCOLOGICAL Hx Blood Disorders: No - INTEGUMENTARY Hx Eczema: Yes - MUSCULOSKELETAL/RHEUMATOLOGICAL Hx Arthritis: Yes (hands) Hx Falls: No Other/Comment: ambulates with cane at home - GASTROINTESTINAL Hx Gall Bladder Disease: Yes Hx Gastritis: Yes - GENITOURINARY/GYNECOLOGICAL Hx Genitourinary Disorders: No - PSYCHIATRIC Hx Substance Use: No - SURGICAL HISTORY Hx Cholecystectomy: Yes Other/Comment: oblation x 2 - ANESTHESIA Hx Anesthesia: Yes Hx Anesthesia Reactions: No Meds Allergies/Adverse Reactions: Allergies Allergy/AdvReac Type Severity Reaction Status Date / Time escitalopram [From Lexapro] AdvReac Verified 06/02/17 01:13 Flu vaccine Allergy Uncoded 06/01/17 21:44 pnuemonia vaccine Allergy Uncoded 06/01/17 21:44 wool Allergy Uncoded 06/01/17 21:44 Physical Exam - Constitutional Appears: Well - Head Exam Head Exam: ATRAUMATIC, NORMAL INSPECTION, NORMOCEPHALIC - Eye Exam Eye Exam: EOMI, Normal appearance, PERRL Pupil Exam: NORMAL ACCOMODATION, PERRL - ENT Exam ENT Exam: Mucous Membranes Moist, Normal Exam - Neck Exam Neck exam: Positive for: Normal Inspection - Respiratory Exam Respiratory Exam: Decreased Breath Sounds - Cardiovascular Exam Cardiovascular Exam: REGULAR RHYTHM, +S1, +S2 - GI/Abdominal Exam GI & Abdominal Exam: Diminished Bowel Sounds, Soft - Rectal Exam Rectal Exam: Deferred Results - Vital Signs Recent Vital Signs: Last Vital Signs Temp 97.7 F 06/02/17 15:00 Pulse 72 06/02/17 16:00 Resp 20 06/02/17 15:00 BP 109/71 06/02/17 15:00 Pulse Ox 94 L 06/02/17 15:00 - Labs Result Diagrams: 06/01/17 22:44 06/01/17 22:44 Labs: Laboratory Results - last 24 hr 06/01/17 06/01/17 06/01/17 22:44 22:44 22:44 WBC 10.0 D RBC 4.29 Hgb 11.3 Hct 34.1 MCV 79.4 L MCH 26.3 L MCHC 33.2 RDW 16.1 H Plt Count 272 MPV 8.9 Neut % (Auto) 65.8 Lymph % (Auto) 25.5 [place] % (Auto) 5.0 Eos % (Auto) 3.1 Baso % (Auto) 0.6 Neut # 6.6 Lymph # 2.6 [place] # 0.5 Eos # 0.3 Baso # 0.1 PT 12.2 INR 1.1 APTT 31 Sodium 135 Potassium 3.4 L Chloride 102 Carbon Dioxide 21 L Anion Gap 15 BUN 17 Creatinine 0.9 Est GFR ( Amer) > 60 Est GFR (Non-Af Amer) > 60 POC Glucose (mg/dL) Random Glucose 127 H Calcium 8.9 Total Bilirubin 0.4 AST 14 ALT 26 Alkaline Phosphatase 82 Total Creatine Kinase 48 CK-MB (Mass) < 0.22 Troponin I < 0.0120 Troponin I, Quant < 0.0120 NT-Pro-B Natriuret Pep 24.8 Total Protein 7.7 Albumin 3.9 Globulin 3.7 Albumin/Globulin Ratio 1.1 Thyroxine (T4) TSH 3rd Generation Urine Color Urine Clarity Urine pH Ur Specific [place] Urine Protein Urine Glucose (UA) Urine Ketones Urine Blood Urine Nitrate Urine Bilirubin Urine Urobilinogen Ur Leukocyte Esterase Urine WBC (Auto) Urine RBC (Auto) Ur Squamous Epith Cells Urine Bacteria 06/01/17 06/02/17 06/02/17 23:47 00:10 00:20 WBC RBC Hgb Hct MCV MCH MCHC RDW Plt Count MPV Neut % (Auto) Lymph % (Auto) [place] % (Auto) Eos % (Auto) Baso % (Auto) Neut # Lymph # [place] # Eos # Baso # PT INR APTT Sodium Potassium Chloride Carbon Dioxide Anion Gap BUN Creatinine Est GFR ( Amer) Est GFR (Non-Af Amer) POC Glucose (mg/dL) 82 Random Glucose Calcium Total Bilirubin AST ALT Alkaline Phosphatase Total Creatine Kinase CK-MB (Mass) Troponin I Troponin I, Quant NT-Pro-B Natriuret Pep Total Protein Albumin Globulin Albumin/Globulin Ratio Thyroxine (T4) TSH 3rd Generation 3.27 Urine Color Yellow Urine Clarity Clear Urine pH 5.0 Ur Specific [place] 1.026 Urine Protein Negative Urine Glucose (UA) Normal Urine Ketones Negative Urine Blood Negative Urine Nitrate Negative Urine Bilirubin Negative Urine Urobilinogen 2.0 H Ur Leukocyte Esterase Trace Urine WBC (Auto) 1 Urine RBC (Auto) < 1 Ur Squamous Epith Cells 4 Urine Bacteria Rare 06/02/17 06/02/17 06/02/17 03:01 05:45 06:56 WBC RBC Hgb Hct MCV MCH MCHC RDW Plt Count MPV Neut % (Auto) Lymph % (Auto) [place] % (Auto) Eos % (Auto) Baso % (Auto) Neut # Lymph # [place] # Eos # Baso # PT INR APTT Sodium Potassium Chloride Carbon Dioxide Anion Gap BUN Creatinine Est GFR ( Amer) Est GFR (Non-Af Amer) POC Glucose (mg/dL) 96 82 Random Glucose Calcium Total Bilirubin AST ALT Alkaline Phosphatase Total Creatine Kinase 51 CK-MB (Mass) 0.29 Troponin I Troponin I, Quant < 0.0120 NT-Pro-B Natriuret Pep Total Protein Albumin Globulin Albumin/Globulin Ratio Thyroxine (T4) 14.7 H TSH 3rd Generation Urine Color Urine Clarity Urine pH Ur Specific [place] Urine Protein Urine Glucose (UA) Urine Ketones Urine Blood Urine Nitrate Urine Bilirubin Urine Urobilinogen Ur Leukocyte Esterase Urine WBC (Auto) Urine RBC (Auto) Ur Squamous Epith Cells Urine Bacteria 06/02/17 06/02/17 06/02/17 09:01 11:48 14:35 WBC RBC Hgb Hct MCV MCH MCHC RDW Plt Count MPV Neut % (Auto) Lymph % (Auto) [place] % (Auto) Eos % (Auto) Baso % (Auto) Neut # Lymph # [place] # Eos # Baso # PT INR APTT Sodium Potassium Chloride Carbon Dioxide Anion Gap BUN Creatinine Est GFR ( Amer) Est GFR (Non-Af Amer) POC Glucose (mg/dL) 102 103 Random Glucose Calcium Total Bilirubin AST ALT Alkaline Phosphatase Total Creatine Kinase 50 CK-MB (Mass) 0.34 Troponin I Troponin I, Quant < 0.0120 NT-Pro-B Natriuret Pep Total Protein Albumin Globulin Albumin/Globulin Ratio Thyroxine (T4) TSH 3rd Generation Urine Color Urine Clarity Urine pH Ur Specific [place] Urine Protein Urine Glucose (UA) Urine Ketones Urine Blood Urine Nitrate Urine Bilirubin Urine Urobilinogen Ur Leukocyte Esterase Urine WBC (Auto) Urine RBC (Auto) Ur Squamous Epith Cells Urine Bacteria 06/02/17 16:29 WBC RBC Hgb Hct MCV MCH MCHC RDW Plt Count MPV Neut % (Auto) Lymph % (Auto) [place] % (Auto) Eos % (Auto) Baso % (Auto) Neut # Lymph # [place] # Eos # Baso # PT INR APTT Sodium Potassium Chloride Carbon Dioxide Anion Gap BUN Creatinine Est GFR ( Amer) Est GFR (Non-Af Amer) POC Glucose (mg/dL) 103 Random Glucose Calcium Total Bilirubin AST ALT Alkaline Phosphatase Total Creatine Kinase CK-MB (Mass) Troponin I Troponin I, Quant NT-Pro-B Natriuret Pep Total Protein Albumin Globulin Albumin/Globulin Ratio Thyroxine (T4) TSH 3rd Generation Urine Color Urine Clarity Urine pH Ur Specific [place] Urine Protein Urine Glucose (UA) Urine Ketones Urine Blood Urine Nitrate Urine Bilirubin Urine Urobilinogen Ur Leukocyte Esterase Urine WBC (Auto) Urine RBC (Auto) Ur Squamous Epith Cells Urine Bacteria Assessment & Plan - Assessment and Plan (Free Text) Plan: Case seen and discussed with the staff and resident aspirin Plavix will be 3 so far negative continue as ordered follow-up with the pulmonary doctor follow- up with the oil furnace installer
[2017-06-03] MEDS: Simethicone 80 mg Chewtab PO SCH ×3 (10:23→18:20)
[2017-06-03] MEDS: Enoxaparin 40 mg Syringe SC SCH (10:27)
[2017-06-03] MEDS: POLYETHYLENE GLYCOL 3350 17 GM/Dose PACKET PO SCH ×2 (10:28→18:21)
[2017-06-03 11:20] LABS: BASO # 0.1 K/uL (0.0-0.2); BASO % 0.9 % (0.0-2.0); EOS # 0.2 K/uL (0.0-0.7); EOS % 3.7 % (0.0-4.0); HEMATOCRIT 36.7 % (34.0-47.0); LYMPH # 1.7 K/uL (1.0-4.3); LYMPH % 26.3 % (20.0-40.0); MEAN CELL VOLUME 79.2 fL (81.0-99.0); MEAN CORPUSCULAR HEMOGLOBIN 26.5 pg (27.0-31.0); MEAN CORPUSCULAR HGB CONC 33.5 g/dL (33.0-37.0); MEAN PLATELET VOLUME 9.2 fL (7.2-11.7); MONO # 0.4 K/uL (0.0-0.8); MONO % 6.6 % (0.0-10.0); RED CELL DISTRIBUTION WIDTH 16.3 % (11.5-14.5); WHITE BLOOD COUNT 6.4 K/uL (4.8-10.8)
[2017-06-03 11:36] LABS: CHLORIDE 100 mmol/L (98-107); POTASSIUM 3.9 mmol/L (3.6-5.2); SODIUM 139 mmol/L (132-148)
[2017-06-03 11:38] LABS: BILIRUBIN,TOTAL 0.5 mg/dL (0.2-1.3); GFR AFRICAN-AMERICAN > 60
[2017-06-03 11:39] LABS: ALKALINE PHOSPHATASE 86 U/L (38-126); ALT/SGPT 28 U/L (9-52); AST/SGOT 24 U/L (14-36); BLOOD UREA NITROGEN 13 mg/dL (7-17); CARBON DIOXIDE 26 mmol/L (22-30); GLUCOSE,RANDOM 100 mg/dL (65-105); TOTAL PROTEIN 8.3 g/dL (6.3-8.3)
[2017-06-03 11:40] LABS: CALCIUM 9.6 mg/dl (8.6-10.4)
[2017-06-03] MEDS: (Novolin R) Insulin Human Regular 100 units/ml vial SC SCH ×3 (11:52→21:25)
--- NOTE | 2017-06-03 14:11 | CP.PCM.PN ---
Subjective - Date & Time of Evaluation Date of Evaluation: 06/03/17 Time of Evaluation: 10:00 - Subjective Subjective: PGY3 on medicine Dr. Zuñiga service: Pt seen and examined at bedside this morning. 56F with history of afib s/p 2x ablations, COPD, HTN, DM, asthma and anxiety. Pt expressed concern for her heart condition. Pt said she was fine for the past 4 months and then she felt "something was wrong" again. Pt said her mid sternal chest pain was sharp, reproducible, and exacerbated with breathing. Patient also refuse having anxiety as an possible cause for her chest pain. Pt cries intermittently during the conversation due to her symptoms. PMHx: As above PSHx: Cholecystectomy, Tubal ligation, Cardiac Cath, 2 cardiac ablations Family Hx: Noncontributory Social Hx: Former smoker (1ppd for approximately 30yrs, quit in 2007); Denies alcohol and illicit drug use Allergies: NKDA Objective - Vital Signs/Intake and Output Vital Signs (last 24 hours): Temp Pulse Resp BP Pulse Ox 97.7 F 82 20 118/68 95 06/03/17 07:42 06/03/17 07:42 06/03/17 07:42 06/03/17 07:42 06/03/17 07:42 - Medications Medications: Current Medications Albuterol (Ventolin Hfa 90 Mcg/Actuation (8 G)) 2 puff IH RQ6 PRN PRN Reason: Cough Aspirin (Ecotrin) 81 mg PO DAILY [facility] Last Admin: 06/03/17 10:23 Dose: 81 mg Betamethasone/Clotrimazole (Lotrisone) 0 gm TOP PRN PRN PRN Reason: Itching / Pruritus Clonazepam (Klonopin) 1 mg PO TID [facility] Last Admin: 06/03/17 10:23 Dose: 1 mg Clopidogrel Bisulfate (Plavix) 75 mg PO DAILY [facility] Last Admin: 06/03/17 10:27 Dose: 75 mg Diltiazem HCl (Cardizem) 30 mg PO BID [facility] Last Admin: 06/03/17 10:23 Dose: 30 mg Docusate Sodium (Colace) 100 mg PO DAILY [facility] Last Admin: 06/03/17 10:23 Dose: 100 mg Enoxaparin Sodium (Lovenox) 40 mg SC DAILY [facility] Last Admin: 06/03/17 10:27 Dose: 40 mg Famotidine (Pepcid) 20 mg PO BID [facility] Last Admin: 06/03/17 10:23 Dose: 20 mg Hydrochlorothiazide (Microzide) 12.5 mg PO DAILY [facility] Last Admin: 06/03/17 10:28 Dose: Not Given Insulin Human Regular (Novolin R) 0 unit SC ACHS [facility] PRN Reason: Protocol Last Admin: 06/03/17 11:52 Dose: Not Given Losartan Potassium (Cozaar) 50 mg PO DAILY [facility] Last Admin: 06/03/17 10:28 Dose: Not Given Metformin HCl (Glucophage) 500 mg PO TID [facility] Last Admin: 06/03/17 10:28 Dose: Not Given Metoprolol Tartrate (Lopressor) 50 mg PO Q12 [facility] Last Admin: 06/03/17 10:27 Dose: 50 mg Montelukast Sodium (Singulair) 10 mg PO QPM [facility] Last Admin: 06/02/17 19:04 Dose: 10 mg Polyethylene Glycol (Miralax) 17 gm PO BID [facility] Last Admin: 06/03/17 10:28 Dose: Not Given Simethicone (Mylicon Chew Tab) 80 mg PO TID [facility] Last Admin: 06/03/17 10:23 Dose: 80 mg Sucralfate (Carafate Tab) 1 gm PO TID [facility] Last Admin: 06/03/17 10:26 Dose: 1 gm - Labs Labs: 06/03/17 11:12 06/03/17 11:12 PT 12.2 SECONDS (9.7-12.2) 06/01/17 22:44 INR 1.1 06/01/17 22:44 APTT 31 SECONDS (21-34) 06/01/17 22:44 - Constitutional Appears: Non-toxic, No Acute Distress, Chronically Ill - Head Exam Head Exam: NORMOCEPHALIC - Eye Exam Eye Exam: Normal appearance Pupil Exam: NORMAL ACCOMODATION - ENT Exam ENT Exam: Mucous Membranes Moist - Respiratory Exam Respiratory Exam: Chest Wall Tenderness, Clear to Ausculation Bilateral, NORMAL BREATHING PATTERN. absent: Wheezes - Cardiovascular Exam Cardiovascular Exam: REGULAR RHYTHM, +S1, +S2. absent: Gallop, Rubs - GI/Abdominal Exam GI & Abdominal Exam: Soft, Normal Bowel Sounds. absent: Tenderness - Neurological Exam Neurological Exam: Alert, Awake, Oriented x3 - Psychiatric Exam Psychiatric exam: Normal Mood - Skin Skin Exam: Intact Assessment and Plan - Assessment and Plan (Free Text) Assessment: Chest Pain -r/o ACS -Troponin negative x 3 -EKG NSR at 76 -Cardiac Cath 11/14/16: EF 70%, codominant circulation, RCA unremarkable, L main unremarkable, LAD/Diagonals mild intimal irregularities without significant stenosis, Circumflex/Obtuse marginals free of significant disease -Echo 10/17/16: 75% EF, LV fxn normal, no regional wall abnormalities, mild MR -TSH wnl, T4 mildly elevated at 14 -CXR revealed no active disease per report. -ASA 81mg po daily -Motrin 400mg po q6 prn for pain -Place on tele -Dr. Farrell on board Diabetes mellitus type 2 -Diet controlled; placed on heart healthy diet -Fingersticks ACHS -RISS low dose -Metformin 500mg PO BID -A1c 5.7 in 12/2016 Hx of COPD/Asthma -Continue albuterol PRN -Continue singulair 10mg po hs -Continue advair PRN -Dr. Robertson on board Hx of HTN -Lopressor 50mg po q12 -Losartan 50mg po bid -HCTZ 12.5mg po daily -Cardizem 30mg PO BID Hx of afib -Plavix 75mg PO daily Hx of GERD -Sucralfate 1gm po tid Constipation -Miralax 17gm po daily Hx of Anxiety -Continue Clonazepam 1mg po tid Prophylaxis -Protonix 40mg po daily -Lovenox 40mg SC daily -SCD's -PT/OT
--- NOTE | 2017-06-03 16:45 | CP.PCM.PN ---
Subjective - Date & Time of Evaluation Date of Evaluation: 06/03/17 Time of Evaluation: 16:42 - Subjective Subjective: Pt seen and examined No events overnight Pt is anxious Objective - Vital Signs/Intake and Output Vital Signs (last 24 hours): Temp Pulse Resp BP Pulse Ox 97.9 F 68 20 116/75 97 06/03/17 15:31 06/03/17 15:31 06/03/17 15:31 06/03/17 15:31 06/03/17 15:31 Intake and Output: 06/03/17 06/03/17 06:59 18:59 Intake Total 480 Balance 480 - Medications Medications: Current Medications Albuterol (Ventolin Hfa 90 Mcg/Actuation (8 G)) 2 puff IH RQ6 PRN PRN Reason: Cough Aspirin (Ecotrin) 81 mg PO DAILY [facility] Last Admin: 06/03/17 10:23 Dose: 81 mg Betamethasone/Clotrimazole (Lotrisone) 0 gm TOP PRN PRN PRN Reason: Itching / Pruritus Clonazepam (Klonopin) 1 mg PO TID [facility] Last Admin: 06/03/17 14:22 Dose: 1 mg Clopidogrel Bisulfate (Plavix) 75 mg PO DAILY [facility] Last Admin: 06/03/17 10:27 Dose: 75 mg Diltiazem HCl (Cardizem) 30 mg PO BID [facility] Last Admin: 06/03/17 10:23 Dose: 30 mg Docusate Sodium (Colace) 100 mg PO DAILY [facility] Last Admin: 06/03/17 10:23 Dose: 100 mg Enoxaparin Sodium (Lovenox) 40 mg SC DAILY [facility] Last Admin: 06/03/17 10:27 Dose: 40 mg Famotidine (Pepcid) 20 mg PO BID [facility] Last Admin: 06/03/17 10:23 Dose: 20 mg Hydrochlorothiazide (Microzide) 12.5 mg PO DAILY [facility] Last Admin: 06/03/17 10:28 Dose: Not Given Ibuprofen (Motrin Tab) 400 mg PO Q6H PRN PRN Reason: Pain, Mild (1-3) Insulin Human Regular (Novolin R) 0 unit SC ACHS [facility] PRN Reason: Protocol Last Admin: 06/03/17 11:52 Dose: Not Given Losartan Potassium (Cozaar) 50 mg PO DAILY [facility] Last Admin: 06/03/17 10:28 Dose: Not Given Metformin HCl (Glucophage) 500 mg PO TID [facility] Metoprolol Tartrate (Lopressor) 50 mg PO Q12 [facility] Last Admin: 06/03/17 10:27 Dose: 50 mg Montelukast Sodium (Singulair) 10 mg PO QPM [facility] Last Admin: 06/02/17 19:04 Dose: 10 mg Polyethylene Glycol (Miralax) 17 gm PO BID [facility] Last Admin: 06/03/17 10:28 Dose: Not Given Simethicone (Mylicon Chew Tab) 80 mg PO TID [facility] Last Admin: 06/03/17 14:26 Dose: 80 mg Sucralfate (Carafate Tab) 1 gm PO TID [facility] Last Admin: 06/03/17 14:23 Dose: 1 gm - Labs Labs: 06/03/17 11:12 06/03/17 11:12 PT 12.2 SECONDS (9.7-12.2) 06/01/17 22:44 INR 1.1 06/01/17 22:44 APTT 31 SECONDS (21-34) 06/01/17 22:44 - Head Exam Head Exam: NORMAL INSPECTION - Eye Exam Eye Exam: Normal appearance - ENT Exam ENT Exam: Mucous Membranes Moist - Respiratory Exam Respiratory Exam: Clear to Ausculation Bilateral, NORMAL BREATHING PATTERN - Cardiovascular Exam Cardiovascular Exam: REGULAR RHYTHM, +S1, +S2 - GI/Abdominal Exam GI & Abdominal Exam: Soft, Normal Bowel Sounds - Extremities Exam Extremities Exam: Normal Inspection Assessment and Plan - Assessment and Plan (Free Text) Assessment: COPD SUNDAY Anxiety CP Advair 250/50 micrograms 1 puff twice a day Bronchodilators Oxygen supplementation Chest pain workup is in progress Xanax Supportive care DVT/GI prophylaxis
--- NOTE | 2017-06-03 16:54 | CP.PCM.CON ---
History of Present Illness - History of Present Illness History of Present Illness: 56 year old female with following chronic medical problems 1. HTN 2. DM 3. Anxiety She is reporting she felt a vasodepressor episode which was followed by severe palpiations. she denies syncope. She denies seizures. Review of Systems - Review of Systems All systems: reviewed and no additional remarkable complaints except Past Patient History - Infectious Disease Hx of Infectious Diseases: None - Tetanus Immunizations Tetanus Immunization: Unknown - Past Medical History & Family History Past Medical History?: Yes - Past Social History Smoking Status: Never Smoked - CARDIAC Hx Atrial Fibrillation: Yes Hx Cardia Arrhythmia: Yes Hx Congestive Heart Failure: Yes Hx Hypercholesterolemia: Yes Hx Hypertension: Yes - PULMONARY Hx Chronic Obstructive Pulmonary Disease (COPD): Yes - NEUROLOGICAL HX Cerebrovascular Accident: Yes - HEENT Hx HEENT Problems: No Other/Comment: wears glasses for reading - RENAL Hx Chronic Kidney Disease: No - ENDOCRINE/METABOLIC Hx Diabetes Mellitus Type 1: Yes - HEMATOLOGICAL/ONCOLOGICAL Hx Blood Disorders: No - INTEGUMENTARY Hx Eczema: Yes - MUSCULOSKELETAL/RHEUMATOLOGICAL Hx Arthritis: Yes (hands) Hx Falls: No Other/Comment: ambulates with cane at home - GASTROINTESTINAL Hx Gall Bladder Disease: Yes Hx Gastritis: Yes - GENITOURINARY/GYNECOLOGICAL Hx Genitourinary Disorders: No - PSYCHIATRIC Hx Substance Use: No - SURGICAL HISTORY Hx Cholecystectomy: Yes Other/Comment: oblation x 2 - ANESTHESIA Hx Anesthesia: Yes Hx Anesthesia Reactions: No Meds Allergies/Adverse Reactions: Allergies Allergy/AdvReac Type Severity Reaction Status Date / Time escitalopram [From Lexapro] AdvReac Verified 06/02/17 01:13 Flu vaccine Allergy Uncoded 06/01/17 21:44 pnuemonia vaccine Allergy Uncoded 06/01/17 21:44 wool Allergy Uncoded 06/01/17 21:44 - Medications Medications: Current Medications Albuterol (Ventolin Hfa 90 Mcg/Actuation (8 G)) 2 puff IH RQ6 PRN PRN Reason: Cough Aspirin (Ecotrin) 81 mg PO DAILY [facility] Last Admin: 06/03/17 10:23 Dose: 81 mg Betamethasone/Clotrimazole (Lotrisone) 0 gm TOP PRN PRN PRN Reason: Itching / Pruritus Clonazepam (Klonopin) 1 mg PO TID [facility] Last Admin: 10/11/17 14:22 Dose: 1 mg Clopidogrel Bisulfate (Plavix) 75 mg PO DAILY [facility] Last Admin: 06/03/17 10:27 Dose: 75 mg Diltiazem HCl (Cardizem) 30 mg PO BID [facility] Last Admin: 06/03/17 10:23 Dose: 30 mg Docusate Sodium (Colace) 100 mg PO DAILY [facility] Last Admin: 06/03/17 10:23 Dose: 100 mg Enoxaparin Sodium (Lovenox) 40 mg SC DAILY [facility] Last Admin: 06/03/17 10:27 Dose: 40 mg Famotidine (Pepcid) 20 mg PO BID [facility] Last Admin: 06/03/17 10:23 Dose: 20 mg Hydrochlorothiazide (Microzide) 12.5 mg PO DAILY [facility] Last Admin: 06/03/17 10:28 Dose: Not Given Ibuprofen (Motrin Tab) 400 mg PO Q6H PRN PRN Reason: Pain, Mild (1-3) Insulin Human Regular (Novolin R) 0 unit SC ACHS [facility] PRN Reason: Protocol Last Admin: 06/03/17 11:52 Dose: Not Given Losartan Potassium (Cozaar) 50 mg PO DAILY [facility] Last Admin: 06/03/17 10:28 Dose: Not Given Metformin HCl (Glucophage) 500 mg PO TID [facility] Metoprolol Tartrate (Lopressor) 50 mg PO Q12 [facility] Last Admin: 06/03/17 10:27 Dose: 50 mg Montelukast Sodium (Singulair) 10 mg PO QPM [facility] Last Admin: 06/02/17 19:04 Dose: 10 mg Polyethylene Glycol (Miralax) 17 gm PO BID [facility] Last Admin: 06/03/17 10:28 Dose: Not Given Simethicone (Mylicon Chew Tab) 80 mg PO TID [facility] Last Admin: 06/03/17 14:26 Dose: 80 mg Sucralfate (Carafate Tab) 1 gm PO TID [facility] Last Admin: 06/03/17 14:23 Dose: 1 gm Physical Exam - Constitutional Appears: Well, Non-toxic - Head Exam Head Exam: ATRAUMATIC, NORMAL INSPECTION - Eye Exam Eye Exam: PERRL. absent: Scleral icterus - ENT Exam ENT Exam: Mucous Membranes Moist, Normal External Ear Exam - Neck Exam Neck exam: Positive for: Full Rom. Negative for: Lymphadenopathy, Thyromegaly - Respiratory Exam Respiratory Exam: Clear to Auscultation Bilateral, NORMAL BREATHING PATTERN - Cardiovascular Exam Cardiovascular Exam: REGULAR RHYTHM, RRR, +S1, +S2. absent: JVD - GI/Abdominal Exam GI & Abdominal Exam: Normal Bowel Sounds. absent: Organomegaly - Extremities Exam Extremities exam: Negative for: calf tenderness, pedal edema - Neurological Exam Neurological exam: Oriented x3, Reflexes Normal - Psychiatric Exam Psychiatric exam: Anxious, Normal Affect, Normal Mood Results - Vital Signs Recent Vital Signs: Last Vital Signs Temp 97.9 F 06/03/17 15:31 Pulse 68 06/03/17 15:31 Resp 20 06/03/17 15:31 BP 116/75 06/03/17 15:31 Pulse Ox 97 06/03/17 15:31 - Labs Result Diagrams: 06/03/17 11:12 06/03/17 11:12 Labs: Laboratory Results - last 24 hr 06/02/17 06/02/17 06/02/17 16:29 21:04 22:40 WBC RBC Hgb Hct MCV MCH MCHC RDW Plt Count MPV Neut % (Auto) Lymph % (Auto) [place] % (Auto) Eos % (Auto) Baso % (Auto) Neut # Lymph # [place] # Eos # Baso # Sodium Potassium Chloride Carbon Dioxide Anion Gap BUN Creatinine Est GFR ( Amer) Est GFR (Non-Af Amer) POC Glucose (mg/dL) 103 123 H Random Glucose Calcium Total Bilirubin AST ALT Alkaline Phosphatase Total Creatine Kinase 49 CK-MB (Mass) 0.29 Troponin I, Quant < 0.0120 Total Protein Albumin Globulin Albumin/Globulin Ratio 06/03/17 06/03/17 06/03/17 06:29 11:12 11:12 WBC 6.4 RBC 4.63 Hgb 12.3 Hct 36.7 MCV 79.2 L MCH 26.5 L MCHC 33.5 RDW 16.3 H Plt Count 277 MPV 9.2 Neut % (Auto) 62.5 Lymph % (Auto) 26.3 [place] % (Auto) 6.6 Eos % (Auto) 3.7 Baso % (Auto) 0.9 Neut # 4.0 Lymph # 1.7 [place] # 0.4 Eos # 0.2 Baso # 0.1 Sodium 139 Potassium 3.9 Chloride 100 Carbon Dioxide 26 Anion Gap 16 BUN 13 Creatinine 0.8 Est GFR ( Amer) > 60 Est GFR (Non-Af Amer) > 60 POC Glucose (mg/dL) 105 Random Glucose 100 Calcium 9.6 Total Bilirubin 0.5 AST 24 ALT 28 Alkaline Phosphatase 86 Total Creatine Kinase CK-MB (Mass) Troponin I, Quant Total Protein 8.3 Albumin 4.1 Globulin 4.2 H Albumin/Globulin Ratio 1.0 06/03/17 06/03/17 11:13 16:08 WBC RBC Hgb Hct MCV MCH MCHC RDW Plt Count MPV Neut % (Auto) Lymph % (Auto) [place] % (Auto) Eos % (Auto) Baso % (Auto) Neut # Lymph # [place] # Eos # Baso # Sodium Potassium Chloride Carbon Dioxide Anion Gap BUN Creatinine Est GFR ( Amer) Est GFR (Non-Af Amer) POC Glucose (mg/dL) 115 H 99 Random Glucose Calcium Total Bilirubin AST ALT Alkaline Phosphatase Total Creatine Kinase CK-MB (Mass) Troponin I, Quant Total Protein Albumin Globulin Albumin/Globulin Ratio - EKG Data EKG Interpreted by: Myself EKG shows normal: Sinus rhythm - Imaging and Cardiology Chest x-ray Status: Image reviewed by me (Poor inspirtory effort, underpenetrated ) Assessment & Plan - Assessment and Plan (Free Text) Assessment: 56 year old female with likely vasodepressor response with bradycardia and presyncope followed with reflex tachycardia; palpitations NSR seen on EKG telemetry shows malignant arrhythmia HTN is chronic and stable DM is chronic and stable on metformin Anxiety continue current medications - Date & Time Date: 06/03/17 Time: 16:55
--- NOTE | 2017-06-03 19:14 | CP.PCM.PN ---
Subjective - Date & Time of Evaluation Date of Evaluation: 06/03/17 Time of Evaluation: 08:40 - Subjective Subjective: clinically same Objective - Vital Signs/Intake and Output Vital Signs (last 24 hours): Temp Pulse Resp BP Pulse Ox 97.9 F 63 20 116/75 97 06/03/17 15:31 06/03/17 17:00 06/03/17 15:31 06/03/17 15:31 06/03/17 16:43 Intake and Output: 06/03/17 06/04/17 18:59 06:59 Intake Total 480 Balance 480 - Medications Medications: Current Medications Albuterol (Ventolin Hfa 90 Mcg/Actuation (8 G)) 2 puff IH RQ6 PRN PRN Reason: Cough Aspirin (Ecotrin) 81 mg PO DAILY [facility] Last Admin: 06/03/17 10:23 Dose: 81 mg Betamethasone/Clotrimazole (Lotrisone) 0 gm TOP PRN PRN PRN Reason: Itching / Pruritus Clonazepam (Klonopin) 1 mg PO TID [facility] Last Admin: 06/03/17 18:21 Dose: 1 mg Clopidogrel Bisulfate (Plavix) 75 mg PO DAILY [facility] Last Admin: 06/03/17 10:27 Dose: 75 mg Diltiazem HCl (Cardizem) 30 mg PO BID [facility] Last Admin: 06/03/17 18:21 Dose: 30 mg Docusate Sodium (Colace) 100 mg PO DAILY [facility] Last Admin: 06/03/17 10:23 Dose: 100 mg Enoxaparin Sodium (Lovenox) 40 mg SC DAILY [facility] Last Admin: 06/03/17 10:27 Dose: 40 mg Famotidine (Pepcid) 20 mg PO BID [facility] Last Admin: 06/03/17 18:21 Dose: 20 mg Hydrochlorothiazide (Microzide) 12.5 mg PO DAILY [facility] Last Admin: 06/03/17 10:28 Dose: Not Given Ibuprofen (Motrin Tab) 400 mg PO Q6H PRN PRN Reason: Pain, Mild (1-3) Insulin Human Regular (Novolin R) 0 unit SC ACHS [facility] PRN Reason: Protocol Last Admin: 06/03/17 16:56 Dose: Not Given Losartan Potassium (Cozaar) 50 mg PO DAILY [facility] Last Admin: 06/03/17 10:28 Dose: Not Given Metformin HCl (Glucophage) 500 mg PO TID [facility] Last Admin: 06/03/17 18:21 Dose: Not Given Metoprolol Tartrate (Lopressor) 50 mg PO Q12 [facility] Last Admin: 06/03/17 10:27 Dose: 50 mg Montelukast Sodium (Singulair) 10 mg PO QPM [facility] Last Admin: 06/03/17 18:20 Dose: 10 mg Polyethylene Glycol (Miralax) 17 gm PO BID [facility] Last Admin: 06/03/17 18:21 Dose: Not Given Simethicone (Mylicon Chew Tab) 80 mg PO TID [facility] Last Admin: 06/03/17 18:20 Dose: 80 mg Sucralfate (Carafate Tab) 1 gm PO TID [facility] Last Admin: 06/03/17 18:21 Dose: 1 gm - Labs Labs: 06/03/17 11:12 06/03/17 11:12 PT 12.2 SECONDS (9.7-12.2) 06/01/17 22:44 INR 1.1 06/01/17 22:44 APTT 31 SECONDS (21-34) 06/01/17 22:44 - Constitutional Appears: Well - Head Exam Head Exam: ATRAUMATIC, NORMAL INSPECTION, NORMOCEPHALIC - Eye Exam Eye Exam: EOMI, Normal appearance, PERRL Pupil Exam: NORMAL ACCOMODATION, PERRL - ENT Exam ENT Exam: Mucous Membranes Moist, Normal Exam - Neck Exam Neck Exam: Full ROM, Normal Inspection. absent: Lymphadenopathy - Respiratory Exam Respiratory Exam: Decreased Breath Sounds - Cardiovascular Exam Cardiovascular Exam: REGULAR RHYTHM, +S1, +S2 - GI/Abdominal Exam GI & Abdominal Exam: Soft, Diminished Bowel Sounds - Rectal Exam Rectal Exam: Deferred
--- NOTE | 2017-06-03 22:42 | CARD ---
APPROVED REPORT EKG Measurement Heart [id number] <Conclusion> Normal sinus rhythm Normal ECG
[2017-06-04 07:30] LABS: MEAN PLATELET VOLUME 9.4 fL (7.2-11.7); NRBC % 0.2 % (0.0-2.0)
[2017-06-04 07:45] LABS: BASO # 0.2 K/uL (0.0-0.2); BASO % 2.1 % (0.0-2.0); EOS # 0.4 K/uL (0.0-0.7); HEMATOCRIT 38.6 % (34.0-47.0); LYMPH # 3.1 K/uL (1.0-4.3); LYMPH % 42.7 % (20.0-40.0); MEAN CELL VOLUME 78.9 fL (81.0-99.0); MEAN CORPUSCULAR HEMOGLOBIN 26.6 pg (27.0-31.0); MEAN CORPUSCULAR HGB CONC 33.7 g/dL (33.0-37.0); MONO # 0.5 K/uL (0.0-0.8); MONO % 7.3 % (0.0-10.0); RED CELL DISTRIBUTION WIDTH 16.4 % (11.5-14.5); WHITE BLOOD COUNT 7.3 K/uL (4.8-10.8)
[2017-06-04 07:55] LABS: CHLORIDE 102 mmol/L (98-107); POTASSIUM 3.9 mmol/L (3.6-5.2); SODIUM 137 mmol/L (132-148)
[2017-06-04 07:57] LABS: AST/SGOT 17 U/L (14-36); BILIRUBIN,TOTAL 0.5 mg/dL (0.2-1.3); CARBON DIOXIDE 23 mmol/L (22-30); GFR AFRICAN-AMERICAN > 60
[2017-06-04 07:58] LABS: ALKALINE PHOSPHATASE 88 U/L (38-126); ALT/SGPT 24 U/L (9-52); BLOOD UREA NITROGEN 18 mg/dL (7-17); CALCIUM 9.1 mg/dl (8.6-10.4); GLUCOSE,RANDOM 92 mg/dL (65-105); TOTAL PROTEIN 7.8 g/dL (6.3-8.3)
[2017-06-04] MEDS: (Novolin R) Insulin Human Regular 100 units/ml vial SC SCH (08:00)
[2017-06-04 08:07] VITALS: RESP 20; TEMP 97.7; O2SAT 98
[2017-06-04 09:55] VITALS: BP 113/76; PULSE 80
[2017-06-04] MEDS: POLYETHYLENE GLYCOL 3350 17 GM/Dose PACKET PO SCH (09:55)
[2017-06-04] MEDS: Enoxaparin 40 mg Syringe SC SCH (09:55)
[2017-06-04] MEDS: Simethicone 80 mg Chewtab PO SCH ×2 (09:56→15:30)
--- NOTE | 2017-06-04 13:08 | CP.PCM.PN ---
Subjective - Date & Time of Evaluation Date of Evaluation: 06/04/17 Time of Evaluation: 13:11 - Subjective Subjective: Events reviewed Objective - Vital Signs/Intake and Output Vital Signs (last 24 hours): Temp Pulse Resp BP Pulse Ox 97.7 F 80 20 113/76 98 06/04/17 07:15 06/04/17 09:54 06/04/17 07:15 06/04/17 09:54 06/04/17 07:15 Intake and Output: 06/04/17 06/04/17 06:59 18:59 Intake Total 500 Balance 500 - Medications Medications: Current Medications Albuterol (Ventolin Hfa 90 Mcg/Actuation (8 G)) 2 puff IH RQ6 PRN PRN Reason: Cough Aspirin (Ecotrin) 81 mg PO DAILY [facility] Last Admin: 06/04/17 09:57 Dose: 81 mg Betamethasone/Clotrimazole (Lotrisone) 0 gm TOP PRN PRN PRN Reason: Itching / Pruritus Clonazepam (Klonopin) 1 mg PO TID [facility] Last Admin: 06/04/17 09:55 Dose: 1 mg Clopidogrel Bisulfate (Plavix) 75 mg PO DAILY [facility] Last Admin: 06/04/17 09:55 Dose: 75 mg Diltiazem HCl (Cardizem) 30 mg PO BID [facility] Last Admin: 06/04/17 09:56 Dose: 30 mg Docusate Sodium (Colace) 100 mg PO DAILY [facility] Last Admin: 06/04/17 09:57 Dose: 100 mg Enoxaparin Sodium (Lovenox) 40 mg SC DAILY [facility] Last Admin: 06/04/17 09:55 Dose: 40 mg Famotidine (Pepcid) 20 mg PO BID [facility] Last Admin: 06/04/17 09:57 Dose: 20 mg Hydrochlorothiazide (Microzide) 12.5 mg PO DAILY [facility] Last Admin: 06/04/17 09:56 Dose: Not Given Ibuprofen (Motrin Tab) 400 mg PO Q6H PRN PRN Reason: Pain, Mild (1-3) Insulin Human Regular (Novolin R) 0 unit SC ACHS [facility] PRN Reason: Protocol Last Admin: 06/04/17 08:00 Dose: Not Given Losartan Potassium (Cozaar) 50 mg PO DAILY [facility] Last Admin: 06/04/17 09:58 Dose: Not Given Metformin HCl (Glucophage) 500 mg PO TID [facility] Last Admin: 06/04/17 09:58 Dose: Not Given Metoprolol Tartrate (Lopressor) 50 mg PO Q12 [facility] Last Admin: 06/04/17 09:57 Dose: 50 mg Montelukast Sodium (Singulair) 10 mg PO QPM [facility] Last Admin: 06/03/17 18:20 Dose: 10 mg Polyethylene Glycol (Miralax) 17 gm PO BID [facility] Last Admin: 06/04/17 09:55 Dose: Not Given Simethicone (Mylicon Chew Tab) 80 mg PO TID [facility] Last Admin: 06/04/17 09:56 Dose: 80 mg Sucralfate (Carafate Tab) 1 gm PO TID [facility] Last Admin: 06/04/17 09:56 Dose: 1 gm - Labs Labs: 06/04/17 07:06 06/04/17 07:06 PT 12.2 SECONDS (9.7-12.2) 06/01/17 22:44 INR 1.1 06/01/17 22:44 APTT 31 SECONDS (21-34) 06/01/17 22:44 - Constitutional Appears: Well, Non-toxic - Respiratory Exam Respiratory Exam: Clear to Ausculation Bilateral, NORMAL BREATHING PATTERN - Cardiovascular Exam Cardiovascular Exam: REGULAR RHYTHM, RRR, +S1, +S2 - GI/Abdominal Exam GI & Abdominal Exam: Normal Bowel Sounds. absent: Organomegaly Assessment and Plan - Assessment and Plan (Free Text) Assessment: - Telemetry Date viewed by myself: NSR, no evidence pauses or Vtach - EKG Data EKG Interpreted by: Myself EKG shows normal: Sinus rhythm - Imaging and Cardiology Chest x-ray Status: Image reviewed by me (Poor inspirtory effort, underpenetrated ) Assessment & Plan - Assessment and Plan (Free Text) Assessment: 56 year old female with vasodepressor presyncope palpitations NSR seen on EKG telemetry shows malignant arrhythmia HTN is chronic and stable DM is chronic and stable on metformin Anxiety continue current medications
--- NOTE | 2017-06-04 19:17 | CP.PCM.PN ---
Subjective - Date & Time of Evaluation Date of Evaluation: 06/04/17 Time of Evaluation: 10:30 Objective - Vital Signs/Intake and Output Vital Signs (last 24 hours): Temp Pulse Resp BP Pulse Ox 97.7 F 80 20 113/76 98 06/04/17 07:15 06/04/17 09:54 06/04/17 07:15 06/04/17 09:54 06/04/17 07:15 - Labs Labs: 06/04/17 07:06 06/04/17 07:06 PT 12.2 SECONDS (9.7-12.2) 06/01/17 22:44 INR 1.1 06/01/17 22:44 APTT 31 SECONDS (21-34) 06/01/17 22:44
== END 2017-06-04 17:05 | disposition home or self-care (01) ==
LOC: C.ER 21:33 → C.9E 06-02 00:04 → C.5S 06-02 12:24
PROVIDERS: ADMIT Internal Medicine Nephrology; ATTEND Internal Medicine Nephrology
DX: R07.89 Other chest pain (principal); F41.9 Anxiety disorder, unspecified; G47.33 Obstructive sleep apnea (adult) (pediatric); I48.91 Unspecified atrial fibrillation; J44.9 Chronic obstructive pulmonary disease, unspecified; K59.00 Constipation, unspecified; Z79.4 Long term (current) use of insulin; Z86.73 Personal history of transient ischemic attack (TIA), and cerebral infarction without residual deficits; Z87.891 Personal history of nicotine dependence; E10.9 Type 1 diabetes mellitus without complications; I11.0 Hypertensive heart disease with heart failure; I25.10 Atherosclerotic heart disease of native coronary artery without angina pectoris; I50.9 Heart failure, unspecified
CPT/HCPCS: 36415; 71010; 80053; 81001; 82948; 83880; 84436; 84443; 84484; 85025; 85610; 85730; 93005; 96374; 97110; 97116; 97163; 97530; 99285; G0378; G8978; G8979; J1650; J2405

== ENCOUNTER 2017-06-25 09:27 | Inpatient (IN) | payer MEDICARE, MEDICAID ==
[2017-06-25 09:27] VITALS: BMI 42.4
--- NOTE | 2017-06-25 09:56 | C.PDOC ---
History Of Present Illness 56 y/o female, PMHx of HTN and DM, presents to ED with c/o chest pain, palpitations, and SOB since yesterday. Denies fevers, or other complaints. Time Seen by Provider: 06/25/17 09:45 Chief Complaint (Nursing): Chest Pain History Per: Patient History/Exam Limitations: no limitations Onset/Duration Of Symptoms: Days Current Symptoms Are (Timing): Still Present Recent travel outside of the [place]: No Past Medical History Reviewed: Historical Data, Nursing Documentation, Vital Signs Vital Signs: Last Vital Signs Temp 97.4 F L 06/25/17 09:34 Pulse 52 L 06/25/17 12:10 Resp 21 06/25/17 12:10 BP 129/82 06/25/17 12:10 Pulse Ox 100 06/25/17 14:24 - Medical History PMH: Anxiety, Arthritis (hands), Atrial Fibrillation, CAD, Cardia Arrhythmia, CHF, COPD, Depression, Diabetes (hypoglycemia), Gastritis, Gall Bladder Disease , HTN, Hypercholesterolemia Denies: Chronic Kidney Disease Surgical History: Cholecystectomy, Coronary Stent (x2) Family History: States: Unknown Family Hx - Social History Hx Tobacco Use: Yes (QUIT) Hx Alcohol Use: No Hx Substance Use: No - Immunization History Hx Tetanus Toxoid Vaccination: No Hx Influenza Vaccination: No Hx Pneumococcal Vaccination: No Review Of Systems Except As Marked, All Systems Reviewed And Found Negative. Constitutional: Negative for: Fever, Chills Cardiovascular: Positive for: Chest Pain, Palpitations Respiratory: Positive for: Shortness of Breath. Negative for: Cough Gastrointestinal: Negative for: Nausea, Vomiting Skin: Negative for: Rash Neurological: Negative for: Dizziness Physical Exam - Physical Exam Appears: Non-toxic, No Acute Distress, Other (anxious appearing) Skin: Warm, Dry Head: Atraumatic, Normacephalic Oral Mucosa: Moist Chest: Symmetrical Cardiovascular: Rhythm Regular Respiratory: Normal Breath Sounds, No Rales, No Rhonchi, No Wheezing Gastrointestinal/Abdominal: Soft, No Tenderness, No Guarding, No Rebound Back: Normal Inspection Extremity: Normal ROM, Capillary Refill (< 2 sec.) Neurological/Psych: Oriented x3, Normal Speech, Normal Cognition ED Course And Treatment - Laboratory Results Result Diagrams: 06/25/17 10:48 06/25/17 10:48 ECG: Interpreted By Me ECG Rhythm: Sinus Rhythm ECG Interpretation: No Acute Changes Interpretation Of ECG: no ST / T wave changes Rate From EC (bpm) O2 Sat by Pulse Oximetry: 100 (RA) Pulse Ox Interpretation: Normal Medical Decision Making Medical Decision Making: cp r/o acs- labs imaging pending. Plan: * EKG, CxR, bloodwork * Reassess Progress: Pt accepted for admission by Dr. Robertson for obs, as pt has h/o of svt in past Disposition - Disposition Disposition: HOSPITALIZED Disposition Time: 12:00 Condition: STABLE - Clinical Impression Clinical Impression: Chest pain - Scribe Statement The provider has reviewed the documentation as recorded by the Scribe SM All medical record entries made by the Scribe were at my direction and personally dictated by me. I have reviewed the chart and agree that the record accurately reflects my personal performance of the history, physical exam, medical decision making, and the department course for this patient. I have also personally directed, reviewed, and agree with the discharge instructions and disposition.
[2017-06-25 10:53] LABS: BASO # 0.1 K/uL (0.0-0.2); BASO % 1.4 % (0.0-2.0); EOS # 0.2 K/uL (0.0-0.7); EOS % 2.3 % (0.0-4.0); HEMATOCRIT 34.8 % (34.0-47.0); LYMPH # 1.9 K/uL (1.0-4.3); MEAN CELL VOLUME 80.1 fL (81.0-99.0); MEAN CORPUSCULAR HEMOGLOBIN 26.6 pg (27.0-31.0); MEAN CORPUSCULAR HGB CONC 33.2 g/dL (33.0-37.0); MEAN PLATELET VOLUME 9.1 fL (7.2-11.7); MONO # 0.4 K/uL (0.0-0.8); MONO % 5.1 % (0.0-10.0); NRBC % 0.1 % (0.0-2.0); RED CELL DISTRIBUTION WIDTH 15.8 % (11.5-14.5); WHITE BLOOD COUNT 8.6 K/uL (4.8-10.8)
[2017-06-25 11:00] LABS: INR 1.1
[2017-06-25 11:12] LABS: CHLORIDE 102 mmol/L (98-107)
[2017-06-25 11:13] LABS: POTASSIUM 3.5 mmol/L (3.6-5.2); SODIUM 138 mmol/L (132-148)
[2017-06-25 11:15] LABS: ALB/GLOB RATIO 1.2 (1.0-2.1); AST/SGOT 13 U/L (14-36); BILIRUBIN,TOTAL 0.5 mg/dL (0.2-1.3); CARBON DIOXIDE 27 mmol/L (22-30); GFR AFRICAN-AMERICAN > 60; TOTAL PROTEIN 7.4 g/dL (6.3-8.3)
[2017-06-25 11:16] LABS: ALKALINE PHOSPHATASE 85 U/L (38-126); ALT/SGPT 23 U/L (9-52); BLOOD UREA NITROGEN 13 mg/dL (7-17); CALCIUM 8.9 mg/dl (8.6-10.4); GLUCOSE,RANDOM 91 mg/dL (65-105)
[2017-06-25 11:40] LABS: URINE BACTERIA RARE (<OCC); URINE BILIRUBIN NEGATIVE (NEGATIVE); URINE BLOOD NEGATIVE (NEGATIVE); URINE COLOR Yellow (YELLOW); URINE GLUCOSE (UA) NORMAL (Normal); URINE KETONE NEGATIVE (NEGATIVE); URINE LEUKOCYTE ESTERASE TRACE Leu/uL (Negative); URINE PROTEIN NEGATIVE (NEGATIVE); WBC URINE 4 /hpf (0-5)
--- NOTE | 2017-06-25 12:43 | RAD ---
HISTORY: chest pain COMPARISON: Chest x-ray performed 06/01/17 TECHNIQUE: Chest, one view. FINDINGS: LUNGS: No focal consolidation. Please note that chest x-ray has limited sensitivity for the detection of pulmonary masses. PLEURA: No significant pleural effusion identified. No definite pneumothorax . CARDIOVASCULAR: The cardiomediastinal silhouette appears within normal limits of size. OSSEOUS STRUCTURES: Degenerative changes. VISUALIZED UPPER ABDOMEN: Unremarkable. OTHER FINDINGS: None. IMPRESSION: No focal consolidation, significant pleural effusion, or definite pneumothorax identified.
--- NOTE | 2017-06-25 19:50 | CP.PCM.HP ---
History of Present Illness - History of Present Illness History of Present Illness: 56 y/o female, PMHx of HTN and DM, presents to ED with c/o chest pain, palpitations, and SOB since yesterday. Denies fevers, or other complaints. Present on Admission - Present on Admission Any Indicators Present on Admission: No History of DVT/PE: No History of Uncontrolled Diabetes: No Urinary Catheter: No Decubitus Ulcer Present: No Review of Systems - Review of Systems All systems: reviewed and no additional remarkable complaints except (See HPI rest negative) Past Patient History - Infectious Disease Hx of Infectious Diseases: None - Tetanus Immunizations Tetanus Immunization: Unknown - Past Medical History & Family History Past Medical History?: Yes - Past Social History Smoking Status: Never Smoked - CARDIAC Hx Atrial Fibrillation: Yes Hx Cardia Arrhythmia: Yes Hx Congestive Heart Failure: Yes Hx Hypercholesterolemia: Yes Hx Hypertension: Yes - PULMONARY Hx Chronic Obstructive Pulmonary Disease (COPD): Yes - NEUROLOGICAL HX Cerebrovascular Accident: Yes - HEENT Hx HEENT Problems: No Other/Comment: wears glasses for reading - RENAL Hx Chronic Kidney Disease: No - ENDOCRINE/METABOLIC Hx Diabetes Mellitus Type 1: Yes - HEMATOLOGICAL/ONCOLOGICAL Hx Blood Disorders: No - INTEGUMENTARY Hx Eczema: Yes - MUSCULOSKELETAL/RHEUMATOLOGICAL Hx Arthritis: Yes (hands) - GASTROINTESTINAL Hx Gall Bladder Disease: Yes Hx Gastritis: Yes - GENITOURINARY/GYNECOLOGICAL Hx Genitourinary Disorders: No - PSYCHIATRIC Hx Anxiety: Yes Hx Depression: Yes Hx Substance Use: No - SURGICAL HISTORY Hx Cholecystectomy: Yes Hx Coronary Stent: Yes (x2) - ANESTHESIA Hx Anesthesia: Yes Hx Anesthesia Reactions: No Meds Allergies/Adverse Reactions: Allergies Allergy/AdvReac Type Severity Reaction Status Date / Time escitalopram [From Lexapro] AdvReac Verified 07/05/17 08:53 Flu vaccine Allergy Uncoded 07/05/17 08:53 pnuemonia vaccine Allergy Uncoded 07/05/17 08:53 wool Allergy Uncoded 07/05/17 08:53 Physical Exam - Head Exam Head Exam: NORMAL INSPECTION - Eye Exam Eye Exam: Normal appearance - ENT Exam ENT Exam: Mucous Membranes Moist - Respiratory Exam Respiratory Exam: Clear to Auscultation Bilateral - Cardiovascular Exam Cardiovascular Exam: Bradycardia, REGULAR RHYTHM, +S1, +S2 - GI/Abdominal Exam GI & Abdominal Exam: Normal Bowel Sounds, Soft - Extremities Exam Extremities exam: Positive for: normal inspection Results - Vital Signs Recent Vital Signs: Last Vital Signs Temp 98.1 F 06/25/17 15:25 Pulse 50 L 06/25/17 15:25 Resp 20 06/25/17 15:25 BP 121/81 06/25/17 15:25 Pulse Ox 98 06/25/17 15:25 - Labs Result Diagrams: 06/29/17 07:36 06/29/17 07:36 Labs: Laboratory Results - last 24 hr 06/25/17 06/25/17 06/25/17 10:48 10:48 10:48 WBC 8.6 RBC 4.34 Hgb 11.5 Hct 34.8 MCV 80.1 L MCH 26.6 L MCHC 33.2 RDW 15.8 H Plt Count 298 MPV 9.1 Neut % (Auto) 69.2 Lymph % (Auto) 22.0 [place] % (Auto) 5.1 Eos % (Auto) 2.3 Baso % (Auto) 1.4 Neut # 5.9 Lymph # 1.9 [place] # 0.4 Eos # 0.2 Baso # 0.1 PT 13.0 H INR 1.1 APTT 27 Sodium 138 Potassium 3.5 L Chloride 102 Carbon Dioxide 27 Anion Gap 13 BUN 13 Creatinine 0.9 Est GFR ( Amer) > 60 Est GFR (Non-Af Amer) > 60 POC Glucose (mg/dL) Random Glucose 91 Calcium 8.9 Total Bilirubin 0.5 AST 13 L D ALT 23 Alkaline Phosphatase 85 Troponin I < 0.0120 Total Protein 7.4 Albumin 4.0 Globulin 3.3 Albumin/Globulin Ratio 1.2 Urine Color Urine Clarity Urine pH Ur Specific [place] Urine Protein Urine Glucose (UA) Urine Ketones Urine Blood Urine Nitrate Urine Bilirubin Urine Urobilinogen Ur Leukocyte Esterase Urine WBC (Auto) Ur Squamous Epith Cells Urine Bacteria Urine HCG, Qual 06/25/17 06/25/17 06/25/17 11:15 11:36 16:19 WBC RBC Hgb Hct MCV MCH MCHC RDW Plt Count MPV Neut % (Auto) Lymph % (Auto) [place] % (Auto) Eos % (Auto) Baso % (Auto) Neut # Lymph # [place] # Eos # Baso # PT INR APTT Sodium Potassium Chloride Carbon Dioxide Anion Gap BUN Creatinine Est GFR ( Amer) Est GFR (Non-Af Amer) POC Glucose (mg/dL) 89 89 Random Glucose Calcium Total Bilirubin AST ALT Alkaline Phosphatase Troponin I Total Protein Albumin Globulin Albumin/Globulin Ratio Urine Color Yellow Urine Clarity Hazy Urine pH 5.0 Ur Specific [place] 1.030 Urine Protein Negative Urine Glucose (UA) Normal Urine Ketones Negative Urine Blood Negative Urine Nitrate Negative Urine Bilirubin Negative Urine Urobilinogen 2.0 H Ur Leukocyte Esterase Trace Urine WBC (Auto) 4 Ur Squamous Epith Cells 41 H Urine Bacteria Rare Urine HCG, Qual Negative Assessment & Plan (1) Anxiety Status: Acute (2) Bradycardia Status: Acute (3) Chest pain Status: Acute (4) Dizziness Status: Acute (5) Palpitations Status: Acute (6) S/P ablation of accessory bypass tract Status: Acute (7) HTN (hypertension) Status: Chronic - Assessment and Plan (Free Text) Plan: Admit to telemetry Cardiology consult Cardiac enzymes Blood pressure control Hold Cardizem and beta-blockers DVT/GI prophylaxis
[2017-06-25] MEDS ORDERED: Albuterol HFA 90 mcg/actuation (8 g) IH PRN (20:08)
[2017-06-25] MEDS: Enoxaparin 40 mg Syringe SC SCH (20:30)
[2017-06-26] MEDS: POLYETHYLENE GLYCOL 3350 17 GM/Dose PACKET PO SCH ×2 (09:19→18:07)
[2017-06-26] MEDS: Enoxaparin 40 mg Syringe SC SCH (09:19)
[2017-06-26] MEDS: Pantoprazole 40 mg EC Tab PO SCH (09:20)
[2017-06-26] MEDS: Simethicone 80 mg Chewtab PO SCH ×3 (09:20→19:26)
--- NOTE | 2017-06-26 12:56 | PCM.PSYCH ---
Initial Psychiatric Evaluation - Initial Psychiatric Evaluation Type of Admission: Voluntary Legal Status: Capacity Chief Complaint (in patient's own words): I am frustrated because of my heart problem. History of Present Illness and Precipitating Events: Patient is a 56 YO female presenting with anxiety. Patient came to ED because of bradycardia and SOB. Patient has had multiple admissions this year and is frustrated because of this. Patient appears agitated during interview but calmed down towards the end. Patient admits to feeling anxious. Patient has had anxiety for many years. Patient sees a psychiatrist in [place], declined giving the name. This psychiatrist prescribes patient clonazepam for anxiety. Patient denies suicidal ideations, voices, and delusions. Patient has never attempted suicide. Patient has never been hospitalized for a psychiatric reason. Patient lives a home with her daughter and is on disability. Patient denies alcohol or drug use. PMH: DM, HTN, COPD, CHF, CAD, A-fib, gall bladder dz, arthritis Current Medications: Active Medications Generic Name Dose Route Start Last Admin Trade Name Freq PRN Reason Stop Dose Admin Acetaminophen 650 mg 06/25/17 18:53 Tylenol 325mg Tab PO Q6 PRN Pain, moderate (4-7) Albuterol 2 puff 06/25/17 20:08 Ventolin Hfa 90 Mcg/Actuation (8 G) IH RQ6 PRN Cough Aspirin 81 mg 06/25/17 18:52 06/26/17 09:20 Ecotrin PO 81 mg DAILY [facility] Administration Clonazepam 1 mg 06/25/17 19:00 06/26/17 09:20 Klonopin PO 1 mg TID [facility] Administration Docusate Sodium 100 mg 06/26/17 10:00 06/26/17 09:19 Colace PO Not Given DAILY [facility] Enoxaparin Sodium 40 mg 06/25/17 20:00 06/26/17 09:19 Lovenox SC 40 mg DAILY [facility] Administration Metformin HCl 500 mg 06/26/17 18:00 Glucophage PO QPM [facility] Montelukast Sodium 10 mg 06/26/17 22:00 Singulair PO HS [facility] Pantoprazole Sodium 40 mg 06/26/17 10:00 06/26/17 09:20 Protonix Ec Tab PO 40 mg DAILY [facility] Administration Polyethylene Glycol 17 gm 06/26/17 10:00 06/26/17 09:19 Miralax PO Not Given BID [facility] Simethicone 80 mg 06/26/17 10:00 06/26/17 09:20 Mylicon Chew Tab PO 80 mg TID [facility] Administration Sucralfate 1 gm 06/26/17 10:00 06/26/17 09:20 Carafate Tab PO 1 gm TID [facility] Administration Past Psychiatric History - Past Psychiatric History Previous Treatment History: None History of Abuse: denies History of ETOH/Drug Use: denies Pertinent Medical Hx (Current Medical&Sleep Prob, Allergies): Allergies Allergy/AdvReac Type Severity Reaction Status Date / Time escitalopram [From Lexapro] AdvReac Verified 06/25/17 09:37 Flu vaccine Allergy Uncoded 06/25/17 09:37 pnuemonia vaccine Allergy Uncoded 06/25/17 09:37 wool Allergy Uncoded 06/25/17 09:37 Albuterol HFA [Ventolin HFA 90 mcg/actuation (8 g)] 2 puff IH [id number] PRN #1 inhaler 10/13/13 Aspirin [Aspir 81] 81 mg PO DAILY 10/13/13 metFORMIN [glucOPHAGE] 500 mg PO PRN PRN 01/10/17 Montelukast [Singulair] 10 mg PO DAILY #30 01/14/17 Sucralfate [Carafate] 1 gm PO TID #90 01/14/17 clonazePAM [Klonopin] 1 mg PO TID tab 01/14/17 Polyethylene Glycol 3350 [Miralax] 17 gm PO BID #20 powd.pack 01/22/17 diltiaZEM [Cardizem] 30 mg PO BID #28 tab 01/22/17 Metoprolol Tartrate [Lopressor] 50 mg PO Q12 #60 tab 03/02/17 Colloidal Oatmeal [Eucerin Eczema Relief] 226 gm TP QID PRN 06/02/17 Docusate [Colace] 100 mg PO DAILY 06/02/17 Omeprazole 20 mg PO DAILY 06/02/17 Simethicone [Mylicon Chew Tab] 80 mg PO TID 06/02/17 Telmisartan/Hydrochlorothiazid [Micardis Hct 40-12.5 mg Tablet] 1 tab PO PRN PRN 06/02/17 PMH see HPI Review of Systems - Review of Systems All systems: reviewed and no additional remarkable complaints except - Psychiatric Psychiatric: Anxiety, Irritability. absent: Suicidal Ideation Mental Status Examination - Personal Presentation Personal Presentation: Looks stated age - Affect Affect: Constricted - Motor Activity Motor Activity: Calm - Reliability in Providing Information Reliability in Providing Information: Good - Speech Speech: Organized - Mood Mood: Anxious - Formal Thought Process Formal Thought Process: No Impairment - Obsessions/Compulsions Obsessions: No Compulsions: No - Cognitive Functions Orientation: Person, Place, Situation, Time Sensorium: Alert Attention/Concentration: Attentive Abstract Thinking: [place] Estimate of Intelligence: Below average Judgement: Intact, as evidence by: Good judgement, Intact, as evidence by: Insight regarding need for hospitalization Memory: Recent intact, as evidence by: Ability to recall events of the day - Risk Risk: Diminished functioning - Strength & Assets Inventory Strength & Assets Inventory: Family support DSM 5 DX - DSM 5 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 - Smoking Cessation Smoking Cessation Initiated: No
--- NOTE | 2017-06-26 17:46 | CP.PCM.PN ---
Subjective - Date & Time of Evaluation Date of Evaluation: 06/26/17 Time of Evaluation: 17:46 Objective - Vital Signs/Intake and Output Vital Signs (last 24 hours): Temp Pulse Resp BP Pulse Ox 98 F 62 20 123/78 97 06/26/17 15:10 06/26/17 16:00 06/26/17 15:10 06/26/17 15:10 06/26/17 15:10 Intake and Output: 06/26/17 06/26/17 06:59 18:59 Intake Total 250 Balance 250 - Medications Medications: Current Medications Acetaminophen (Tylenol 325mg Tab) 650 mg PO Q6 PRN PRN Reason: Pain, moderate (4-7) Albuterol (Ventolin Hfa 90 Mcg/Actuation (8 G)) 2 puff IH RQ6 PRN PRN Reason: Cough Aspirin (Ecotrin) 81 mg PO DAILY [facility] Last Admin: 06/26/17 09:20 Dose: 81 mg Clonazepam (Klonopin) 1 mg PO TID [facility] Last Admin: 06/26/17 13:20 Dose: 1 mg Docusate Sodium (Colace) 100 mg PO DAILY [facility] Last Admin: 06/26/17 09:19 Dose: Not Given Enoxaparin Sodium (Lovenox) 40 mg SC DAILY [facility] Last Admin: 06/26/17 09:19 Dose: 40 mg Metformin HCl (Glucophage) 500 mg PO QPM [facility] Montelukast Sodium (Singulair) 10 mg PO HS [facility] Pantoprazole Sodium (Protonix Ec Tab) 40 mg PO DAILY [facility] Last Admin: 06/26/17 09:20 Dose: 40 mg Polyethylene Glycol (Miralax) 17 gm PO BID [facility] Last Admin: 06/26/17 09:19 Dose: Not Given Simethicone (Mylicon Chew Tab) 80 mg PO TID [facility] Last Admin: 06/26/17 13:19 Dose: 80 mg Sucralfate (Carafate Tab) 1 gm PO TID [facility] Last Admin: 06/26/17 13:19 Dose: 1 gm - Labs Labs: 06/25/17 10:48 06/25/17 10:48 PT 13.0 SECONDS (9.7-12.2) H 06/25/17 10:48 INR 1.1 06/25/17 10:48 APTT 27 SECONDS (21-34) 06/25/17 10:48
--- NOTE | 2017-06-26 19:06 | CARD ---
APPROVED REPORT EKG Measurement Heart [id number] <Conclusion> Normal sinus rhythm Normal ECG
--- NOTE | 2017-06-26 21:15 | CON ---
ENDOCRINOLOGY CONSULT LOCATION: Room 656. HISTORY OF PRESENT ILLNESS: This is a 56-year-old female with known history of type 2 diabetes and hypertension, presenting here with precordial chest pain, palpitation, and supervening progressive shortness of breath and is now admitted for cardiac workup for acute coronary syndrome and is also being referred for diabetic evaluation and management. PAST MEDICAL HISTORY: As mentioned above, history of type 2 diabetes, currently on a p.r.n. dosing of her Glucophage given at 500 mg once daily; history of hypertensive cardiovascular disease and dyslipidemia; history of coronary artery disease with previous coronary stent placements done twice; history of chronic atrial fibrillation and has not been on oral anticoagulation therapy at this time; history of generalized anxiety and depression, on multiple psychotropic medications as noted; history of chronic obstructive lung disease with remote history of nicotine dependence; history of chronic gastritis, and had prior cholecystectomy many years ago. FAMILY HISTORY: Positive for hypertension and diabetes. SOCIAL HISTORY: The patient has a supportive family. She was actually a former smoker but has quite some years ago. No other known substance use. REVIEW OF SYSTEMS: As mentioned above, admits to generalized body weakness with easy fatigability and tiredness and suboptimal energy level. Also admits to episodic bouts of dizziness and lightheadedness, worse on the day of admission. She admits to precordial chest pain with supervening palpitations and progressive shortness of breath, especially on exertion. Her oral intake is variable with nausea, dyspepsia, and vague upper abdominal pain. Also admits to marked polyuria and nocturia, especially in the last few days prior to admission. PHYSICAL EXAMINATION: GENERAL: This is an obese female, in no apparent distress. VITAL SIGNS: Blood pressure 130/80, pulse of 70 beats per minute and regular, temperature is 98, respirations 20. Height is 5 feet 4 inches. Weight is 239 pounds. HEENT: Head is normocephalic. Eyes are anicteric with pink conjunctivae. Funduscopy not possible at this time. Ears, nose, and throat otherwise normal. NECK: Supple. Thyroid gland is normal in size. No carotid bruits or cervical adenopathy. CARDIOPULMONARY: Adynamic precordium. S1 and S2 is rapid and regular. LUNGS: Clear to auscultation. ABDOMEN: Flat, soft with positive bowel sounds. EXTREMITIES: No peripheral edema. Pulses are +2 bilaterally. LABORATORY DATA: Her chemistry showed BUN of 13, sodium 138, potassium 3.5, chloride 102, CO2 of 27, glucose 91, creatinine 0.9. Her troponin is less than 0.12. Her glucose levels have ranged from 88 to 107 to 110 mg/dL. ASSESSMENT: This is a 56-year-old female with type 2 diabetes and hypertension, presenting here with acute coronary syndrome and currently undergoing cardiac workup and management and is also being referred for diabetic evaluation because of p.r.n. intake of her metformin therapy as noted. She is also underlying morbid obesity, which as you know was contributing to increase insulin resistance and further impaired glucose intolerance thereof. PLAN OF MANAGEMENT: We will actually order her metformin to be given on a fixed dose of 500 mg once daily after dinner as ordered to start tonight. We will continue the fingerstick glucose testing 4 times a day a.c and bedtime, but hold of any kind of coverage scale for now. We will obtain serial chemistries and supplement accordingly as needed. We will reinforce diabetic education and dietary instructions to include healthier food choices with a reverse ratio, more protein, and less carbs diet for her food preferences. We will also request a dietitian sit down with her for healthier food choices as ordered. We will follow and advise accordingly. Shae Villeda MD
--- NOTE | 2017-06-27 03:35 | CP.PCM.PN ---
Subjective - Date & Time of Evaluation Date of Evaluation: 06/26/17 Time of Evaluation: 20:30 - Subjective Subjective: 56 F admitted for palpitations h/o ablation patient previously seen by EP Dr. Guo as per the patient Predominantly EP issue and patient wants to be seen by Dr. Guo only I will sign off Dr. Guo consulted Thank you Objective - Vital Signs/Intake and Output Vital Signs (last 24 hours): Temp Pulse Resp BP Pulse Ox 98.0 F 71 20 105/60 100 06/26/17 23:35 06/27/17 03:15 06/26/17 23:35 06/26/17 23:35 06/26/17 23:35 - Medications Medications: Current Medications Acetaminophen (Tylenol 325mg Tab) 650 mg PO Q6 PRN PRN Reason: Pain, moderate (4-7) Albuterol (Ventolin Hfa 90 Mcg/Actuation (8 G)) 2 puff IH RQ6 PRN PRN Reason: Cough Aspirin (Ecotrin) 81 mg PO DAILY [facility] Last Admin: 06/26/17 09:20 Dose: 81 mg Clonazepam (Klonopin) 1 mg PO TID [facility] Last Admin: 06/26/17 19:26 Dose: 1 mg Docusate Sodium (Colace) 100 mg PO DAILY [facility] Last Admin: 06/26/17 09:19 Dose: Not Given Enoxaparin Sodium (Lovenox) 40 mg SC DAILY [facility] Last Admin: 06/26/17 09:19 Dose: 40 mg Metformin HCl (Glucophage) 500 mg PO QPM [facility] Last Admin: 06/26/17 18:08 Dose: Not Given Montelukast Sodium (Singulair) 10 mg PO HS [facility] Last Admin: 06/26/17 22:35 Dose: 10 mg Pantoprazole Sodium (Protonix Ec Tab) 40 mg PO DAILY [facility] Last Admin: 06/26/17 09:20 Dose: 40 mg Polyethylene Glycol (Miralax) 17 gm PO BID [facility] Last Admin: 06/26/17 18:07 Dose: Not Given Simethicone (Mylicon Chew Tab) 80 mg PO TID [facility] Last Admin: 06/26/17 19:26 Dose: 80 mg Sucralfate (Carafate Tab) 1 gm PO TID [facility] Last Admin: 06/26/17 19:26 Dose: 1 gm - Labs Labs: 06/25/17 10:48 06/25/17 10:48 PT 13.0 SECONDS (9.7-12.2) H 06/25/17 10:48 INR 1.1 06/25/17 10:48 APTT 27 SECONDS (21-34) 06/25/17 10:48
[2017-06-27 06:58] LABS: CHLORIDE 104 mmol/L (98-107)
[2017-06-27 06:59] LABS: POTASSIUM 3.8 mmol/L (3.6-5.2); SODIUM 139 mmol/L (132-148)
[2017-06-27 07:01] LABS: ALB/GLOB RATIO 0.9 (1.0-2.1); ALKALINE PHOSPHATASE 77 U/L (38-126); ALT/SGPT 35 U/L (9-52); AST/SGOT 13 U/L (14-36); BILIRUBIN,TOTAL 0.2 mg/dL (0.2-1.3); BLOOD UREA NITROGEN 15 mg/dL (7-17); CARBON DIOXIDE 27 mmol/L (22-30); CHOLESTEROL 134 mg/dL (0-199); GFR AFRICAN-AMERICAN > 60; GLUCOSE,RANDOM 74 mg/dL (65-105); TOTAL PROTEIN 7.6 g/dL (6.3-8.3)
[2017-06-27 07:02] LABS: CALCIUM 8.7 mg/dl (8.6-10.4)
[2017-06-27 07:32] LABS: THYROID STIMULATING HORMONE 2.11 mIU/L (0.46-4.68)
[2017-06-27] MEDS: Enoxaparin 40 mg Syringe SC SCH (09:43)
[2017-06-27] MEDS: Simethicone 80 mg Chewtab PO SCH ×3 (09:43→17:40)
[2017-06-27] MEDS: Pantoprazole 40 mg EC Tab PO SCH (09:44)
[2017-06-27] MEDS: POLYETHYLENE GLYCOL 3350 17 GM/Dose PACKET PO SCH ×2 (09:45→17:41)
--- NOTE | 2017-06-27 13:35 | PN ---
DATE: ENDOCRINOLOGY FOLLOWUP NOTE SUBJECTIVE: This is a 56-year-old female with recent admission for acute coronary syndrome and palpitations and is now being followed closely for diabetic evaluation and management. She continues to have low normal glycemic profile overnight with glucose level today noted at 88 mg/dL. It was 112 early this morning at 2:00 a.m. as noted. Her bedtime, glucose was 86. There is no overt neuroglycopenic or hyperadrenergic manifestations. LABORATORY DATA: Her latest chemistry showed a BUN of 15, sodium of 139, potassium of 3.8, chloride of 104, CO2 of 27, glucose of 74, and creatinine of 0.9. Her TSH level is 2.11. ASSESSMENT AND PLAN: So, she really is clinically and biochemically euthyroid at this time. So for now, we will continue the once daily metformin given as 500 mg at dinner time today as ordered. We will obtain serial chemistries and supplement accordingly as needed. We will follow. Shae Villeda MD
--- NOTE | 2017-06-27 17:01 | CP.PCM.PN ---
Subjective - Date & Time of Evaluation Date of Evaluation: 06/27/17 Time of Evaluation: 17:01 Objective - Vital Signs/Intake and Output Vital Signs (last 24 hours): Temp Pulse Resp BP Pulse Ox 98.2 F 68 20 116/74 96 06/27/17 15:14 06/27/17 15:14 06/27/17 15:14 06/27/17 15:14 06/27/17 15:14 - Medications Medications: Current Medications Acetaminophen (Tylenol 325mg Tab) 650 mg PO Q6 PRN PRN Reason: Pain, moderate (4-7) Albuterol (Ventolin Hfa 90 Mcg/Actuation (8 G)) 2 puff IH RQ6 PRN PRN Reason: Cough Aspirin (Ecotrin) 81 mg PO DAILY [facility] Last Admin: 06/27/17 09:47 Dose: 81 mg Clonazepam (Klonopin) 1 mg PO TID [facility] Last Admin: 06/27/17 14:03 Dose: 1 mg Docusate Sodium (Colace) 100 mg PO DAILY [facility] Last Admin: 06/27/17 09:43 Dose: 100 mg Enoxaparin Sodium (Lovenox) 40 mg SC DAILY [facility] Last Admin: 06/27/17 09:43 Dose: 40 mg Losartan Potassium (Cozaar) 50 mg PO DAILY [facility] Last Admin: 06/27/17 15:08 Dose: 50 mg Metformin HCl (Glucophage) 500 mg PO QPM [facility] Last Admin: 06/26/17 18:08 Dose: Not Given Montelukast Sodium (Singulair) 10 mg PO HS [facility] Last Admin: 06/26/17 22:35 Dose: 10 mg Pantoprazole Sodium (Protonix Ec Tab) 40 mg PO DAILY [facility] Last Admin: 06/27/17 09:44 Dose: 40 mg Polyethylene Glycol (Miralax) 17 gm PO BID [facility] Last Admin: 06/27/17 09:45 Dose: Not Given Simethicone (Mylicon Chew Tab) 80 mg PO TID [facility] Last Admin: 06/27/17 14:05 Dose: 80 mg Sucralfate (Carafate Tab) 1 gm PO TID [facility] Last Admin: 06/27/17 14:04 Dose: 1 gm - Labs Labs: 06/25/17 10:48 06/27/17 06:36 PT 13.0 SECONDS (9.7-12.2) H 06/25/17 10:48 INR 1.1 06/25/17 10:48 APTT 27 SECONDS (21-34) 06/25/17 10:48
[2017-06-28] MEDS: Enoxaparin 40 mg Syringe SC SCH (09:12)
[2017-06-28] MEDS: Pantoprazole 40 mg EC Tab PO SCH (09:13)
[2017-06-28] MEDS: Simethicone 80 mg Chewtab PO SCH ×3 (09:13→17:22)
[2017-06-28] MEDS: POLYETHYLENE GLYCOL 3350 17 GM/Dose PACKET PO SCH ×2 (09:14→17:24)
--- NOTE | 2017-06-28 13:30 | PN ---
DATE: ENDOCRINOLOGY FOLLOWUP NOTE LOCATION: Room 656. SUBJECTIVE: This is a 56-year-old female, presenting here with palpitations and precordial chest pain and currently undergoing cardiac workup as noted and is also being followed closely for metabolic management because of known history of uncontrolled type 2 diabetes. Her glucose levels are much improved at this time and have ranged from 103 to 116 mg/dL. It was 128 at bedtime last night. Her latest chemistry showed a BUN of 15, sodium 139, potassium 3.8, chloride 104, CO2 of 27, glucose 74, and creatinine 0.9. So, at this time, we will continue the low-dose metformin given as 500 mg once daily with dinner as ordered. We will obtain serial chemistries and supplement accordingly as needed. We will follow. We will also consult a dietitian for nutritional counseling and healthier food choices and also to reinforce the need for weight loss as noted. We will follow and advise accordingly. Shae Villeda MD
[2017-06-29 07:58] LABS: BASO # 0.1 K/uL (0.0-0.2); BASO % 0.8 % (0.0-2.0); EOS # 0.4 K/uL (0.0-0.7); EOS % 5.9 % (0.0-4.0); HEMATOCRIT 35.1 % (34.0-47.0); LYMPH # 1.8 K/uL (1.0-4.3); LYMPH % 29.6 % (20.0-40.0); MEAN CORPUSCULAR HEMOGLOBIN 26.5 pg (27.0-31.0); MEAN CORPUSCULAR HGB CONC 33.1 g/dL (33.0-37.0); MEAN PLATELET VOLUME 9.1 fL (7.2-11.7); MONO # 0.4 K/uL (0.0-0.8); MONO % 7.3 % (0.0-10.0); RED CELL DISTRIBUTION WIDTH 15.7 % (11.5-14.5); WHITE BLOOD COUNT 6.1 K/uL (4.8-10.8)
[2017-06-29 08:08] LABS: CHLORIDE 104 mmol/L (98-107); POTASSIUM 3.8 mmol/L (3.6-5.2); SODIUM 138 mmol/L (132-148)
[2017-06-29 08:09] LABS: ALB/GLOB RATIO 1.2 (1.0-2.1); ALKALINE PHOSPHATASE 90 U/L (38-126); AST/SGOT 15 U/L (14-36); BILIRUBIN,TOTAL 0.6 mg/dL (0.2-1.3); CARBON DIOXIDE 25 mmol/L (22-30); GFR AFRICAN-AMERICAN > 60; TOTAL PROTEIN 7.1 g/dL (6.3-8.3)
[2017-06-29 08:10] LABS: ALT/SGPT 27 U/L (9-52); BLOOD UREA NITROGEN 15 mg/dL (7-17); CALCIUM 8.5 mg/dl (8.6-10.4); GLUCOSE,RANDOM 98 mg/dL (65-105)
[2017-06-29] MEDS: POLYETHYLENE GLYCOL 3350 17 GM/Dose PACKET PO SCH ×2 (09:18→18:06)
[2017-06-29] MEDS: Simethicone 80 mg Chewtab PO SCH ×3 (09:27→18:06)
[2017-06-29] MEDS: Enoxaparin 40 mg Syringe SC SCH (09:27)
[2017-06-29] MEDS: Pantoprazole 40 mg EC Tab PO SCH (09:28)
--- NOTE | 2017-06-29 18:31 | PN ---
DATE: ENDOCRINOLOGY FOLLOWUP NOTE LOCATION: In room 656. SUBJECTIVE: This is a 56-year-old female, presenting here with precordial chest pain and bradycardia and now being followed closely for metabolic management. Her glycemic levels are much improved at this time and have ranged from 92 to 120 mg/dL. The latest chemistry showed a BUN of 15, sodium 138, potassium 3.8, chloride 104, CO2 of 25, glucose 98 and creatinine 0.9. So, at this time, we will continue the low-dose metformin given as 500 mg once daily with dinner as ordered. We will titrate incrementally to optimize metabolic control as indicated. We will follow with you. Shae Villeda MD
--- NOTE | 2017-06-29 19:00 | CP.PCM.PN ---
Subjective - Date & Time of Evaluation Date of Evaluation: 06/29/17 Time of Evaluation: 19:00 Objective - Vital Signs/Intake and Output Vital Signs (last 24 hours): Temp Pulse Resp BP Pulse Ox 98.1 F 58 L 20 145/76 97 06/29/17 15:40 06/29/17 15:40 06/29/17 15:40 06/29/17 15:40 06/29/17 15:40 - Medications Medications: Current Medications Acetaminophen (Tylenol 325mg Tab) 650 mg PO Q6 PRN PRN Reason: Pain, moderate (4-7) Albuterol (Ventolin Hfa 90 Mcg/Actuation (8 G)) 2 puff IH RQ6 PRN PRN Reason: Cough Aspirin (Ecotrin) 81 mg PO DAILY [facility] Last Admin: 06/29/17 09:28 Dose: 81 mg Clonazepam (Klonopin) 1 mg PO TID [facility] Last Admin: 06/29/17 18:06 Dose: 1 mg Docusate Sodium (Colace) 100 mg PO DAILY [facility] Last Admin: 06/29/17 09:28 Dose: Not Given Enoxaparin Sodium (Lovenox) 40 mg SC DAILY [facility] Last Admin: 06/29/17 09:27 Dose: 40 mg Losartan Potassium (Cozaar) 50 mg PO DAILY [facility] Last Admin: 06/29/17 09:27 Dose: 50 mg Metformin HCl (Glucophage) 500 mg PO QPM [facility] Last Admin: 06/29/17 18:07 Dose: Not Given Montelukast Sodium (Singulair) 10 mg PO HS [facility] Last Admin: 06/28/17 21:47 Dose: 10 mg Pantoprazole Sodium (Protonix Ec Tab) 40 mg PO DAILY [facility] Last Admin: 06/29/17 09:28 Dose: 40 mg Polyethylene Glycol (Miralax) 17 gm PO BID [facility] Last Admin: 06/29/17 18:06 Dose: Not Given Simethicone (Mylicon Chew Tab) 80 mg PO TID [facility] Last Admin: 06/29/17 18:06 Dose: 80 mg Sucralfate (Carafate Tab) 1 gm PO TID [facility] Last Admin: 06/29/17 18:06 Dose: 1 gm - Labs Labs: 06/29/17 07:36 06/29/17 07:36 PT 13.0 SECONDS (9.7-12.2) H 06/25/17 10:48 INR 1.1 06/25/17 10:48 APTT 27 SECONDS (21-34) 06/25/17 10:48
--- NOTE | 2017-06-29 23:05 | CP.PCM.CON ---
History of Present Illness - History of Present Illness History of Present Illness: The pt is a 56 year old female with a history of chest and palpitations. Pt had an SVT ablation a year or two ago, possible by Dr Stallworth. Pt had a recurrence of her arrhythmia, and a second ablation procedure. She was advised to take both metoprolol 50 bid and cardezem 30 bid. Pt noticed that her heart rate was in the 40's and she became distraught. In the hospital she has had either sinus evert or nsr, and no heart block. Meds were stopped. pt is often tearful when she reports her symptoms. The patient said that she was light headed, but also had room spinning and imbalance. Nausea at times. . There was no syncope. Pt reported vague shest pain that lasted for hours and has not stopped. mostly on the right side. Pt had a caridac cath (s) in the past, and no intervention was done Pt is demanding a heart test to fix her problem. She sees a psychiatrist in and has had a psyche consult. Review of Systems - Review of Systems All systems: reviewed and no additional remarkable complaints except (as above.) Past Patient History - Infectious Disease Hx of Infectious Diseases: None - Tetanus Immunizations Tetanus Immunization: Unknown - Past Medical History & Family History Past Medical History?: Yes - Past Social History Smoking Status: Never Smoked - CARDIAC Hx Atrial Fibrillation: Yes Hx Cardia Arrhythmia: Yes Hx Congestive Heart Failure: Yes Hx Hypercholesterolemia: Yes Hx Hypertension: Yes - PULMONARY Hx Chronic Obstructive Pulmonary Disease (COPD): Yes - NEUROLOGICAL HX Cerebrovascular Accident: Yes - HEENT Hx HEENT Problems: No Other/Comment: wears glasses for reading - RENAL Hx Chronic Kidney Disease: No - ENDOCRINE/METABOLIC Hx Diabetes Mellitus Type 1: Yes - HEMATOLOGICAL/ONCOLOGICAL Hx Blood Disorders: No - INTEGUMENTARY Hx Eczema: Yes - MUSCULOSKELETAL/RHEUMATOLOGICAL Hx Arthritis: Yes (hands) - GASTROINTESTINAL Hx Gall Bladder Disease: Yes Hx Gastritis: Yes - GENITOURINARY/GYNECOLOGICAL Hx Genitourinary Disorders: No - PSYCHIATRIC Hx Anxiety: Yes Hx Depression: Yes Hx Substance Use: No - SURGICAL HISTORY Hx Cholecystectomy: Yes Hx Coronary Stent: Yes (x2) - ANESTHESIA Hx Anesthesia: Yes Hx Anesthesia Reactions: No Meds Allergies/Adverse Reactions: Allergies Allergy/AdvReac Type Severity Reaction Status Date / Time escitalopram [From Lexapro] AdvReac Verified 11/02/17 09:37 Flu vaccine Allergy Uncoded 06/25/17 09:37 pnuemonia vaccine Allergy Uncoded 06/25/17 09:37 wool Allergy Uncoded 06/25/17 09:37 - Medications Medications: Current Medications Acetaminophen (Tylenol 325mg Tab) 650 mg PO Q6 PRN PRN Reason: Pain, moderate (4-7) Albuterol (Ventolin Hfa 90 Mcg/Actuation (8 G)) 2 puff IH RQ6 PRN PRN Reason: Cough Aspirin (Ecotrin) 81 mg PO DAILY [facility] Last Admin: 06/29/17 09:28 Dose: 81 mg Clonazepam (Klonopin) 1 mg PO TID [facility] Last Admin: 06/29/17 18:06 Dose: 1 mg Docusate Sodium (Colace) 100 mg PO DAILY [facility] Last Admin: 06/29/17 09:28 Dose: Not Given Enoxaparin Sodium (Lovenox) 40 mg SC DAILY [facility] Last Admin: 06/29/17 09:27 Dose: 40 mg Losartan Potassium (Cozaar) 50 mg PO DAILY [facility] Last Admin: 06/29/17 09:27 Dose: 50 mg Metformin HCl (Glucophage) 500 mg PO QPM [facility] Last Admin: 06/29/17 18:07 Dose: Not Given Montelukast Sodium (Singulair) 10 mg PO HS [facility] Last Admin: 06/29/17 21:47 Dose: 10 mg Pantoprazole Sodium (Protonix Ec Tab) 40 mg PO DAILY [facility] Last Admin: 06/29/17 09:28 Dose: 40 mg Polyethylene Glycol (Miralax) 17 gm PO BID [facility] Last Admin: 06/29/17 18:06 Dose: Not Given Simethicone (Mylicon Chew Tab) 80 mg PO TID [facility] Last Admin: 06/29/17 18:06 Dose: 80 mg Sucralfate (Carafate Tab) 1 gm PO TID [facility] Last Admin: 06/29/17 18:06 Dose: 1 gm Physical Exam - Constitutional Appears: Non-toxic - Head Exam Head Exam: ATRAUMATIC - Eye Exam Eye Exam: EOMI - Respiratory Exam Respiratory Exam: Clear to Auscultation Bilateral - GI/Abdominal Exam GI & Abdominal Exam: Normal Bowel Sounds, Soft - Exam External exam: NORMAL EXTERNAL EXAM - Extremities Exam Extremities exam: Positive for: normal inspection - Neurological Exam Neurological exam: Alert, CN II-XII Intact, Oriented x3 - Psychiatric Exam Psychiatric exam: Normal Affect, Normal Mood - Skin Skin Exam: Warm Results - Vital Signs Recent Vital Signs: Last Vital Signs Temp 98.1 F 06/29/17 15:40 Pulse 52 L 06/29/17 16:00 Resp 20 06/29/17 15:40 BP 119/75 06/29/17 22:34 Pulse Ox 97 06/29/17 15:40 - Labs Result Diagrams: 06/29/17 07:36 06/29/17 07:36 Labs: Laboratory Results - last 24 hr 06/29/17 06/29/17 06/29/17 02:33 06:06 07:36 WBC 6.1 RBC 4.39 Hgb 11.6 Hct 35.1 MCV 80.0 L MCH 26.5 L MCHC 33.1 RDW 15.7 H Plt Count 259 MPV 9.1 Neut % (Auto) 56.4 Lymph % (Auto) 29.6 Pickett % (Auto) 7.3 Eos % (Auto) 5.9 H Baso % (Auto) 0.8 Neut # 3.4 Lymph # 1.8 Pickett # 0.4 Eos # 0.4 Baso # 0.1 Sodium Potassium Chloride Carbon Dioxide Anion Gap BUN Creatinine Est GFR ( Amer) Est GFR (Non-Af Amer) POC Glucose (mg/dL) 86 92 Random Glucose Calcium Total Bilirubin AST ALT Alkaline Phosphatase Total Protein Albumin Globulin Albumin/Globulin Ratio 06/29/17 06/29/17 06/29/17 07:36 12:19 17:09 WBC RBC Hgb Hct MCV MCH MCHC RDW Plt Count MPV Neut % (Auto) Lymph % (Auto) Pickett % (Auto) Eos % (Auto) Baso % (Auto) Neut # Lymph # Pickett # Eos # Baso # Sodium 138 Potassium 3.8 Chloride 104 Carbon Dioxide 25 Anion Gap 12 BUN 15 Creatinine 0.9 Est GFR ( Amer) > 60 Est GFR (Non-Af Amer) > 60 POC Glucose (mg/dL) 120 H 84 Random Glucose 98 Calcium 8.5 L Total Bilirubin 0.6 AST 15 ALT 27 Alkaline Phosphatase 90 Total Protein 7.1 Albumin 3.9 Globulin 3.2 Albumin/Globulin Ratio 1.2 - EKG Data EKG Interpreted by: Boelf EKG shows normal: Sinus rhythm (no ischemic changes) Assessment & Plan - Assessment and Plan (Free Text) Assessment: 1. Pt's sinus bradycardia should not cause her symptoms. Bp is normal. But pt is distressed about her sinus bradycardia. I will attempt to re institute her meds, at lower doses and observe pt. 2. TSH 3. pt also describes vertigo, which was exacerbated when she turned her head to the left. A dose of antivert was ordered, and consider neuro evaluation.
[2017-06-30] MEDS: Pantoprazole 40 mg EC Tab PO SCH (10:31)
[2017-06-30] MEDS: Simethicone 80 mg Chewtab PO SCH ×3 (10:31→18:10)
[2017-06-30] MEDS: Enoxaparin 40 mg Syringe SC SCH (10:31)
[2017-06-30] MEDS: POLYETHYLENE GLYCOL 3350 17 GM/Dose PACKET PO SCH ×2 (10:32→18:12)
--- NOTE | 2017-06-30 14:11 | CP.PCM.PN ---
Subjective - Date & Time of Evaluation Date of Evaluation: 06/30/17 Time of Evaluation: 14:05 - Subjective Subjective: pt walked aroung a little, still light headed, dizzy at rest. Objective - Vital Signs/Intake and Output Vital Signs (last 24 hours): Temp Pulse Resp BP Pulse Ox 98.1 F 58 L 18 136/79 98 06/30/17 07:40 06/30/17 07:40 06/30/17 07:40 06/30/17 07:40 06/30/17 07:40 Intake and Output: 06/30/17 06/30/17 06:59 18:59 Intake Total 320 Balance 320 - Medications Medications: Current Medications Acetaminophen (Tylenol 325mg Tab) 650 mg PO Q6 PRN PRN Reason: Pain, moderate (4-7) Albuterol (Ventolin Hfa 90 Mcg/Actuation (8 G)) 2 puff IH RQ6 PRN PRN Reason: Cough Aspirin (Ecotrin) 81 mg PO DAILY [facility] Last Admin: 06/30/17 10:31 Dose: 81 mg Clonazepam (Klonopin) 1 mg PO TID [facility] Last Admin: 06/30/17 13:06 Dose: 1 mg Docusate Sodium (Colace) 100 mg PO DAILY [facility] Last Admin: 06/30/17 10:32 Dose: Not Given Enoxaparin Sodium (Lovenox) 40 mg SC DAILY [facility] Last Admin: 06/30/17 10:31 Dose: 40 mg Losartan Potassium (Cozaar) 50 mg PO DAILY [facility] Last Admin: 06/30/17 10:31 Dose: 50 mg Metformin HCl (Glucophage) 500 mg PO QPM [facility] Last Admin: 06/29/17 18:07 Dose: Not Given Metoprolol Tartrate (Lopressor) 25 mg PO BID [facility] Last Admin: 06/30/17 10:15 Dose: Not Given Montelukast Sodium (Singulair) 10 mg PO HS [facility] Last Admin: 06/29/17 21:47 Dose: 10 mg Pantoprazole Sodium (Protonix Ec Tab) 40 mg PO DAILY [facility] Last Admin: 06/30/17 10:31 Dose: 40 mg Polyethylene Glycol (Miralax) 17 gm PO BID [facility] Last Admin: 06/30/17 10:32 Dose: Not Given Simethicone (Mylicon Chew Tab) 80 mg PO TID [facility] Last Admin: 11/07/17 13:06 Dose: 80 mg Sucralfate (Carafate Tab) 1 gm PO TID [facility] Last Admin: 06/30/17 13:06 Dose: 1 gm - Labs Labs: 06/29/17 07:36 06/29/17 07:36 PT 13.0 SECONDS (9.7-12.2) H 06/25/17 10:48 INR 1.1 06/25/17 10:48 APTT 27 SECONDS (21-34) 06/25/17 10:48 - Constitutional Appears: Well - Head Exam Head Exam: NORMAL INSPECTION - Eye Exam Eye Exam: EOMI - ENT Exam ENT Exam: Mucous Membranes Moist - Respiratory Exam Respiratory Exam: Clear to Ausculation Bilateral - Cardiovascular Exam Cardiovascular Exam: REGULAR RHYTHM - Exam Exam: NORMAL INSPECTION - Extremities Exam Extremities Exam: Full ROM - Back Exam Back Exam: CVA tenderness (L) - Neurological Exam Neurological Exam: Alert, Awake, Normal Gait - Psychiatric Exam Psychiatric exam: Anxious, Normal Affect Assessment and Plan - Assessment and Plan (Free Text) Assessment: Pt 's vital signs, including normal BP and heart rate 55 to 60 bpm are not responsible for her light headedness. Pt described dizziness when she turned her head to the right, c/w vertigo, and a neurology consult should be considered. pt lso is very anxious, depressed, tearful, and I believe that her complaints of dizziness might be related to secondary gain. I ordered metoprolol 25 bid, which she has not gotten yet, a much lower dose of beta monica than before, and no cardezem. Pt understand that at a lower medication dose, her SVT might recur. TSH was normal. If pt tolerates beta monica, than no other tests or CV work up is is recommended at [facility] time and pt can be discharged form CV standpoint at this time.
--- NOTE | 2017-06-30 15:23 | PN ---
DATE: ENDOCRINOLOGY FOLLOWUP NOTE LOCATION: Room 656. SUBJECTIVE: This is a 56-year-old female, who was with precordial chest pain and undergoing cardiac workup and management and is also being followed closely for metabolic management. Her glycemic levels are much improved at this time on a range from 124 to 184 mg/dL. Her latest chemistry showed a BUN of 15, sodium 138, potassium 3.8, chloride 104, CO2 25, glucose 98, and creatinine 0.9. So at this time, we will continue the low dose oral hypoglycemic therapy as given with metformin at 500 mg once daily with dinner as ordered. We will titrate incrementally as indicated to optimize metabolic control. We will follow. Shae Villeda MD
--- NOTE | 2017-06-30 17:38 | CP.PCM.PN ---
Subjective - Date & Time of Evaluation Date of Evaluation: 06/30/17 Time of Evaluation: 17:38 Objective - Vital Signs/Intake and Output Vital Signs (last 24 hours): Temp Pulse Resp BP Pulse Ox 97.6 F 56 L 20 128/75 99 06/30/17 15:02 06/30/17 15:02 06/30/17 15:02 06/30/17 15:02 06/30/17 15:02 Intake and Output: 06/30/17 06/30/17 06:59 18:59 Intake Total 320 Balance 320 - Medications Medications: Current Medications Acetaminophen (Tylenol 325mg Tab) 650 mg PO Q6 PRN PRN Reason: Pain, moderate (4-7) Last Admin: 06/30/17 16:44 Dose: 650 mg Albuterol (Ventolin Hfa 90 Mcg/Actuation (8 G)) 2 puff IH RQ6 PRN PRN Reason: Cough Aspirin (Ecotrin) 81 mg PO DAILY [facility] Last Admin: 06/30/17 10:31 Dose: 81 mg Clonazepam (Klonopin) 1 mg PO TID [facility] Last Admin: 06/30/17 13:06 Dose: 1 mg Docusate Sodium (Colace) 100 mg PO DAILY [facility] Last Admin: 06/30/17 10:32 Dose: Not Given Enoxaparin Sodium (Lovenox) 40 mg SC DAILY [facility] Last Admin: 06/30/17 10:31 Dose: 40 mg Losartan Potassium (Cozaar) 50 mg PO DAILY [facility] Last Admin: 06/30/17 10:31 Dose: 50 mg Metformin HCl (Glucophage) 500 mg PO QPM [facility] Last Admin: 06/29/17 18:07 Dose: Not Given Metoprolol Tartrate (Lopressor) 25 mg PO BID [facility] Last Admin: 06/30/17 14:48 Dose: 25 mg Montelukast Sodium (Singulair) 10 mg PO HS [facility] Last Admin: 06/29/17 21:47 Dose: 10 mg Pantoprazole Sodium (Protonix Ec Tab) 40 mg PO DAILY [facility] Last Admin: 06/30/17 10:31 Dose: 40 mg Polyethylene Glycol (Miralax) 17 gm PO BID [facility] Last Admin: 06/30/17 10:32 Dose: Not Given Simethicone (Mylicon Chew Tab) 80 mg PO TID [facility] Last Admin: 06/30/17 13:06 Dose: 80 mg Sucralfate (Carafate Tab) 1 gm PO TID [facility] Last Admin: 06/30/17 13:06 Dose: 1 gm - Labs Labs: 06/29/17 07:36 06/29/17 07:36 PT 13.0 SECONDS (9.7-12.2) H 06/25/17 10:48 INR 1.1 06/25/17 10:48 APTT 27 SECONDS (21-34) 06/25/17 10:48
[2017-07-01] MEDS: Simethicone 80 mg Chewtab PO SCH ×3 (10:24→17:07)
[2017-07-01] MEDS: Pantoprazole 40 mg EC Tab PO SCH (10:24)
[2017-07-01] MEDS: Enoxaparin 40 mg Syringe SC SCH (10:25)
[2017-07-01] MEDS: POLYETHYLENE GLYCOL 3350 17 GM/Dose PACKET PO SCH ×3 (10:25→17:07)
--- NOTE | 2017-07-01 15:51 | CP.PCM.PN ---
Subjective - Date & Time of Evaluation Date of Evaluation: 07/01/17 Time of Evaluation: 15:49 - Subjective Subjective: PT SEEN BY DR. PINTO AND CLEARED FOR D/C. PER DR. PINTO, DO NOT D/C PT WITH METOPROLOL. HE DOES NOT WANT HER TO CONTINUE BETA BLOCKERS FOR NOW UNTIL SHE IS RE-EVAL'D BY CARDIO IN THE OFFICE. THERE IS A CONCERN FOR NONCOMPLIANCE AND MISUSE OF METOPROLOL DUE TO PT'S SEVERE ANXIETY. PT TO CONTINUE MICARDIS, WHICH SHE TAKES AT HOME ALREADY. PT TO F/U WITH PMD AND DR. BIRCH WITHIN 1 WEEK. NO FURTHER ORDERS. Objective - Vital Signs/Intake and Output Vital Signs (last 24 hours): Temp Pulse Resp BP Pulse Ox 98.1 F 74 18 124/74 97 07/01/17 07:05 07/01/17 08:00 07/01/17 07:05 07/01/17 10:25 07/01/17 07:05 - Medications Medications: Current Medications Acetaminophen (Tylenol 325mg Tab) 650 mg PO Q6 PRN PRN Reason: Pain, moderate (4-7) Last Admin: 06/30/17 16:44 Dose: 650 mg Albuterol (Ventolin Hfa 90 Mcg/Actuation (8 G)) 2 puff IH RQ6 PRN PRN Reason: Cough Aspirin (Ecotrin) 81 mg PO DAILY [facility] Last Admin: 07/01/17 10:24 Dose: 81 mg Clonazepam (Klonopin) 1 mg PO TID [facility] Last Admin: 07/01/17 13:37 Dose: 1 mg Docusate Sodium (Colace) 100 mg PO DAILY [facility] Last Admin: 07/01/17 10:24 Dose: 100 mg Enoxaparin Sodium (Lovenox) 40 mg SC DAILY [facility] Last Admin: 07/01/17 10:25 Dose: 40 mg Losartan Potassium (Cozaar) 50 mg PO DAILY [facility] Last Admin: 07/01/17 10:24 Dose: 50 mg Metformin HCl (Glucophage) 500 mg PO QPM [facility] Last Admin: 06/30/17 18:11 Dose: Not Given Metoprolol Tartrate (Lopressor) 25 mg PO BID [facility] Last Admin: 07/01/17 10:25 Dose: Not Given Montelukast Sodium (Singulair) 10 mg PO HS [facility] Last Admin: 06/30/17 20:59 Dose: 10 mg Pantoprazole Sodium (Protonix Ec Tab) 40 mg PO DAILY [facility] Last Admin: 07/01/17 10:24 Dose: 40 mg Polyethylene Glycol (Miralax) 17 gm PO BID [facility] Last Admin: 07/01/17 10:27 Dose: Not Given Simethicone (Mylicon Chew Tab) 80 mg PO TID [facility] Last Admin: 07/01/17 13:37 Dose: 80 mg Sucralfate (Carafate Tab) 1 gm PO TID [facility] Last Admin: 07/01/17 13:37 Dose: 1 gm - Labs Labs: 06/29/17 07:36 06/29/17 07:36 PT 13.0 SECONDS (9.7-12.2) H 06/25/17 10:48 INR 1.1 06/25/17 10:48 APTT 27 SECONDS (21-34) 06/25/17 10:48
[2017-07-01 17:07] VITALS: BP 131/91
[2017-07-01 17:09] VITALS: PULSE 77; RESP 20; TEMP 97.7; O2SAT 99
--- NOTE | 2017-07-01 17:14 | PN ---
ENDO FOLLOWUP NOTE LOCATION: Room 656. This is a 56-year-old female with recent uncontrolled type 2 diabetes now being followed closely for metabolic management. Her glycemic levels are much improved at this time and are actually optimal as noted with the glucose levels ranging from 90 to 103 and 135 mg/dL. Her latest chemistry showed a BUN of 15, sodium 138, potassium 3.8, chloride 104, CO2 of 25, glucose 98, and creatinine 0.9. So at this time, we will continue the same low-dose metformin given as 500 mg b.i.d. with dinner as noted. We will titrate incrementally as indicated to optimize metabolic control. We will follow and advise accordingly. Shae Villeda MD
--- NOTE | 2017-07-01 18:02 | CP.PCM.PN ---
Subjective - Date & Time of Evaluation Date of Evaluation: 07/01/17 Time of Evaluation: 17:59 - Subjective Subjective: The pt felt like she had a run of tachcyardia yesterday, but nsr was seen on telemetry, no svt. Pt received 25 mg only yesterday. 25 mg also today. HR has been mid 50-s to mid 70's. Objective - Vital Signs/Intake and Output Vital Signs (last 24 hours): Temp Pulse Resp BP Pulse Ox 97.7 F 77 20 131/91 H 99 07/01/17 15:08 07/01/17 15:08 07/01/17 15:08 07/01/17 17:06 07/01/17 15:08 - Medications Medications: Current Medications Acetaminophen (Tylenol 325mg Tab) 650 mg PO Q6 PRN PRN Reason: Pain, moderate (4-7) Last Admin: 06/30/17 16:44 Dose: 650 mg Albuterol (Ventolin Hfa 90 Mcg/Actuation (8 G)) 2 puff IH RQ6 PRN PRN Reason: Cough Aspirin (Ecotrin) 81 mg PO DAILY [facility] Last Admin: 07/01/17 10:24 Dose: 81 mg Clonazepam (Klonopin) 1 mg PO TID [facility] Last Admin: 07/01/17 17:05 Dose: 1 mg Docusate Sodium (Colace) 100 mg PO DAILY [facility] Last Admin: 07/01/17 10:24 Dose: 100 mg Enoxaparin Sodium (Lovenox) 40 mg SC DAILY [facility] Last Admin: 07/01/17 10:25 Dose: 40 mg Losartan Potassium (Cozaar) 50 mg PO DAILY [facility] Last Admin: 07/01/17 10:24 Dose: 50 mg Metformin HCl (Glucophage) 500 mg PO QPM [facility] Last Admin: 07/01/17 17:07 Dose: Not Given Metoprolol Tartrate (Lopressor) 25 mg PO BID [facility] Last Admin: 07/01/17 17:06 Dose: 25 mg Montelukast Sodium (Singulair) 10 mg PO HS [facility] Last Admin: 06/30/17 20:59 Dose: 10 mg Pantoprazole Sodium (Protonix Ec Tab) 40 mg PO DAILY [facility] Last Admin: 07/01/17 10:24 Dose: 40 mg Polyethylene Glycol (Miralax) 17 gm PO BID [facility] Last Admin: 07/01/17 17:07 Dose: Not Given Simethicone (Mylicon Chew Tab) 80 mg PO TID [facility] Last Admin: 07/01/17 17:07 Dose: 80 mg Sucralfate (Carafate Tab) 1 gm PO TID [facility] Last Admin: 07/01/17 17:05 Dose: 1 gm - Labs Labs: 06/29/17 07:36 06/29/17 07:36 PT 13.0 SECONDS (9.7-12.2) H 06/25/17 10:48 INR 1.1 06/25/17 10:48 APTT 27 SECONDS (21-34) 06/25/17 10:48 - Constitutional Appears: Well - Head Exam Head Exam: ATRAUMATIC - Eye Exam Eye Exam: EOMI - ENT Exam ENT Exam: Mucous Membranes Moist - Neck Exam Neck Exam: Full ROM - Respiratory Exam Respiratory Exam: NORMAL BREATHING PATTERN - Cardiovascular Exam Cardiovascular Exam: REGULAR RHYTHM - GI/Abdominal Exam GI & Abdominal Exam: Normal Bowel Sounds - Exam External exam: NORMAL EXTERNAL EXAM - Extremities Exam Extremities Exam: Normal Inspection - Back Exam Back Exam: NORMAL INSPECTION - Neurological Exam Neurological Exam: Alert, Normal Gait - Psychiatric Exam Psychiatric exam: Normal Affect Assessment and Plan - Assessment and Plan (Free Text) Assessment: Pt will take as per my instructions, 25 mg metoprolol bid and come to office for follow up , and call if arrhythmias occur. Will stay off cardezem for now.
--- NOTE | 2017-07-07 00:20 | CP.PCM.DIS ---
Provider - Provider Date of Admission: 06/28/17 15:27 Attending physician: Conner Robertson MD Time Spent in preparation of Discharge (in minutes): 25 Diagnosis - Discharge Diagnosis (1) Bradycardia Status: Acute (2) Anxiety Status: Acute (3) Chest pain Status: Acute (4) Dizziness Status: Acute (5) Palpitations Status: Acute Hospital Course - Lab Results Lab Results: Most Recent Lab Values WBC 6.1 K/uL (4.8-10.8) 06/29/17 07:36 RBC 4.39 Mil/uL (3.80-5.20) 06/29/17 07:36 Hgb 11.6 g/dL (11.0-16.0) 06/29/17 07:36 Hct 35.1 % (34.0-47.0) 06/29/17 07:36 MCV 80.0 fL (81.0-99.0) L 06/29/17 07:36 MCH 26.5 pg (27.0-31.0) L 06/29/17 07:36 MCHC 33.1 g/dL (33.0-37.0) 06/29/17 07:36 RDW 15.7 % (11.5-14.5) H 06/29/17 07:36 Plt Count 259 K/uL (130-400) 06/29/17 07:36 MPV 9.1 fL (7.2-11.7) 06/29/17 07:36 Neut % (Auto) 56.4 % (50.0-75.0) 06/29/17 07:36 Lymph % (Auto) 29.6 % (20.0-40.0) 06/29/17 07:36 [place] % (Auto) 7.3 % (0.0-10.0) 06/29/17 07:36 Eos % (Auto) 5.9 % (0.0-4.0) H 06/29/17 07:36 Baso % (Auto) 0.8 % (0.0-2.0) 06/29/17 07:36 Neut # 3.4 K/uL (1.8-7.0) 06/29/17 07:36 Lymph # 1.8 K/uL (1.0-4.3) 06/29/17 07:36 [place] # 0.4 K/uL (0.0-0.8) 06/29/17 07:36 Eos # 0.4 K/uL (0.0-0.7) 06/29/17 07:36 Baso # 0.1 K/uL (0.0-0.2) 06/29/17 07:36 PT 13.0 SECONDS (9.7-12.2) H 06/25/17 10:48 INR 1.1 06/25/17 10:48 APTT 27 SECONDS (21-34) 06/25/17 10:48 Sodium 138 mmol/L (132-148) 06/29/17 07:36 Potassium 3.8 mmol/L (3.6-5.2) 06/29/17 07:36 Chloride 104 mmol/L (98-107) 06/29/17 07:36 Carbon Dioxide 25 mmol/L (22-30) 06/29/17 07:36 Anion Gap 12 (10-20) 06/29/17 07:36 BUN 15 mg/dL (7-17) 06/29/17 07:36 Creatinine 0.9 mg/dL (0.7-1.2) 06/29/17 07:36 Est GFR ( Amer) > 60 06/29/17 07:36 Est GFR (Non-Af Amer) > 60 06/29/17 07:36 POC Glucose (mg/dL) 90 mg/dL (65-110) 07/01/17 16:53 Random Glucose 98 mg/dL (65-105) 06/29/17 07:36 Hemoglobin A1c 5.4 % (4.2-6.5) 06/27/17 06:36 Calcium 8.5 mg/dl (8.6-10.4) L 06/29/17 07:36 Total Bilirubin 0.6 mg/dL (0.2-1.3) 06/29/17 07:36 AST 15 U/L (14-36) 06/29/17 07:36 ALT 27 U/L (9-52) 06/29/17 07:36 Alkaline Phosphatase 90 U/L (38-126) 06/29/17 07:36 Troponin I < 0.0120 ng/mL (0.00-0.120) 06/25/17 10:48 Total Protein 7.1 g/dL (6.3-8.3) 06/29/17 07:36 Albumin 3.9 g/dL (3.5-5.0) 06/29/17 07:36 Globulin 3.2 gm/dL (2.2-3.9) 06/29/17 07:36 Albumin/Globulin Ratio 1.2 (1.0-2.1) 06/29/17 07:36 Triglycerides 87 mg/dL (0-149) 06/27/17 06:36 Cholesterol 134 mg/dL (0-199) 06/27/17 06:36 LDL Cholesterol Direct 76 mg/dL (0-129) 06/27/17 06:36 HDL Cholesterol 33 mg/dL (30-70) 06/27/17 06:36 TSH 3rd Generation 2.11 mIU/L (0.46-4.68) 06/27/17 06:36 Urine Color Yellow (YELLOW) 06/25/17 11:15 Urine Clarity Hazy (Clear) 06/25/17 11:15 Urine pH 5.0 (5.0-8.0) 06/25/17 11:15 Ur Specific [place] 1.030 (1.003-1.030) 06/25/17 11:15 Urine Protein Negative mg/dL (NEGATIVE) 06/25/17 11:15 Urine Glucose (UA) Normal mg/dL (Normal) 06/25/17 11:15 Urine Ketones Negative mg/dL (NEGATIVE) 06/25/17 11:15 Urine Blood Negative (NEGATIVE) 06/25/17 11:15 Urine Nitrate Negative (NEGATIVE) 06/25/17 11:15 Urine Bilirubin Negative (NEGATIVE) 06/25/17 11:15 Urine Urobilinogen 2.0 mg/dL (0.2-1.0) H 06/25/17 11:15 Ur Leukocyte Esterase Trace [place]/uL (Negative) 06/25/17 11:15 Urine WBC (Auto) 4 /hpf (0-5) 06/25/17 11:15 Ur Squamous Epith Cells 41 /hpf (0-5) H 06/25/17 11:15 Urine Bacteria Rare (<OCC) 06/25/17 11:15 Urine HCG, Qual Negative (NEGATIVE) 06/25/17 11:15 - Hospital Course Hospital Course: Patient was initially admitted for chest pain and bradycardia. Chest pain was ruled out and patient remained bradycardic with heart rate in 40s and 50s. Patient was taken off metoprolol and Cardizem and slowly heart rate improved to high 50s and 60s. Patient was evaluated by cardiology and was cleared for discharge to be further evaluated and followed by EP as outpatient. Patient is status post ablation for tachyarrhythmias Discharge Exam - Head Exam Head Exam: ATRAUMATIC - Eye Exam Eye Exam: Normal appearance - ENT Exam ENT Exam: Mucous Membranes Moist - Respiratory Exam Respiratory Exam: Clear to PA & Lateral - Cardiovascular Exam Cardiovascular Exam: REGULAR RHYTHM, +S1, +S2 - GI/Abdominal Exam GI & Abdominal Exam: Normal Bowel Sounds, Soft - Extremities Exam Extremities exam: normal inspection - Neurological Exam Neurological exam: Alert, Oriented x3 Discharge Plan - Follow Up Plan Condition: STABLE Disposition: HOME/ ROUTINE Instructions: Heart Failure (DC), Chest Pain (DC), Palpitations (DC), Heart Healthy Diet (DC), Bradycardia (DC) Additional Instructions: FOLLOW UP WITH YOUR PRIMARY DOCTOR IN THE OFFICE WITHIN 5-7 DAYS OF DISCHARGE--- CALL AND MAKE YOUR APPT TIME. FOLLOW UP WITH DR. BIRCH IN THE OFFICE WITHIN [address] ROBERTSON'S RECOMMENDATIONS---CALL FOR APPT TIME. CONTINUE TAKING YOU HOME MEDICATION USUAL. CHANGES TO YOUR HOME MEDICATIONS INCLUDE THE FOLLOWING: STOP TAKING CARDIZEM AND STOP TAKING METOPROLOL. CONTINUE MICARDIS. FOR FURTHER CONCERNS OR QUESTIONS, CONTACT DR. BIRCH OR YOUR PRIMARY. Referrals: Harjit Birch MD [Staff Provider] - Conner Robertson MD [Staff Provider] - Shae Villeda MD [Medical Doctor] - Alhaji Posadas MD [Staff Provider] - Clinical Quality Measures - CQM - VTE Did patient receive overlap therapy during hosptialization?: Yes Is patient being discharged on overlap therapy?: No Medical Reason for discharge Overlap Therapy: No - CQM - Heart Failure Ejection Fraction: 40 % or Greater Left Ventricular Function to be assessed after discharge: No CHALO Inhibitor Prescribed: Yes Will be discharged to: Home Follow Up Date (must be within 7 days from discharge): 07/08/17 Follow Up Time: 09:00
== END 2017-07-01 18:40 | disposition home or self-care (01) | DRG 309 ==
LOC: C.ER 09:27 → C.6T 11:41 → OBSVTOIN 06-28 15:27
PROVIDERS: ADMIT Internal Medicine Critical Care Medicine; ATTEND Internal Medicine Critical Care Medicine
DX: R00.1 Bradycardia, unspecified (principal); I25.110 Atherosclerotic heart disease of native coronary artery with unstable angina pectoris; I11.0 Hypertensive heart disease with heart failure; Z68.41 Body mass index [BMI] 40.0-44.9, adult; I50.9 Heart failure, unspecified; E66.01 Morbid (severe) obesity due to excess calories; R00.2 Palpitations; I48.91 Unspecified atrial fibrillation; E11.9 Type 2 diabetes mellitus without complications; J44.9 Chronic obstructive pulmonary disease, unspecified; E78.00 Pure hypercholesterolemia, unspecified; Z95.5 Presence of coronary angioplasty implant and graft; Z90.49 Acquired absence of other specified parts of digestive tract; Z86.73 Personal history of transient ischemic attack (TIA), and cerebral infarction without residual deficits; F06.4 Anxiety disorder due to known physiological condition; Z87.891 Personal history of nicotine dependence; R42 Dizziness and giddiness; Z91.14 Patient's other noncompliance with medication regimen; F41.9 Anxiety disorder, unspecified; Z79.4 Long term (current) use of insulin

== ENCOUNTER 2017-07-05 08:16 | Emergency (ER) | payer MEDICARE, MEDICAID ==
[2017-07-05 08:26] VITALS: BMI 36.0
[2017-07-05 08:35] VITALS: RESP 18; TEMP 98.6
--- NOTE | 2017-07-05 09:02 | C.PDOC ---
History Of Present Illness 56-year-old female, PMHx includes Hypertension and Diabetes, presents to the emergency department with complaints of palpitations. Patient states she has been experiencing palpitations. Patient has been evaluated in the past for similar symptoms numerous times in the past. Patient discharged from hospital one week ago. Denies fevers, nausea/vomiting, or any other complaints at this time. Time Seen by Provider: 07/05/17 08:25 Chief Complaint (Nursing): Chest Pain History Per: Patient History/Exam Limitations: no limitations Onset/Duration Of Symptoms: Days Current Symptoms Are (Timing): Still Present Severity: Moderate Past Medical History Reviewed: Historical Data, Nursing Documentation, Vital Signs Vital Signs: Last Vital Signs Temp 98.6 F 07/05/17 08:22 Pulse 68 07/05/17 10:15 Resp 18 07/05/17 10:15 BP 111/61 07/05/17 10:15 Pulse Ox 96 07/05/17 10:36 - Medical History PMH: Anxiety, Arthritis (hands), Atrial Fibrillation, CAD, Cardia Arrhythmia, CHF, COPD, Depression, Diabetes (hypoglycemia), Gastritis, Gall Bladder Disease , HTN, Hypercholesterolemia Denies: Chronic Kidney Disease Surgical History: Cholecystectomy, Coronary Stent (x2) Family History: States: No Known Family Hx - Social History Hx Tobacco Use: Yes (QUIT) Hx Alcohol Use: No Hx Substance Use: No - Immunization History Hx Tetanus Toxoid Vaccination: No Hx Influenza Vaccination: No Hx Pneumococcal Vaccination: No Review Of Systems Except As Marked, All Systems Reviewed And Found Negative. Constitutional: Negative for: Fever Cardiovascular: Positive for: Palpitations Respiratory: Negative for: Shortness of Breath Gastrointestinal: Negative for: Nausea, Vomiting Neurological: Negative for: Weakness, Numbness, Headache, Dizziness Physical Exam - Physical Exam Appears: Non-toxic, No Acute Distress, Other (Anxious appearing. Tearful on exam ) Skin: Warm, Dry, No Rash Head: Atraumatic, Normacephalic Eye(s): bilateral: Normal Inspection, PERRL Nose: Normal Oral Mucosa: Moist Neck: Normal ROM Chest: Symmetrical Cardiovascular: Rhythm Regular, No Murmur Respiratory: Normal Breath Sounds, No Accessory Muscle Use Extremity: Normal ROM Neurological/Psych: Oriented x3, Normal Speech ED Course And Treatment - Laboratory Results Result Diagrams: 07/05/17 09:25 07/05/17 09:25 ECG: Interpreted By Me, Viewed By Me ECG Rhythm: Sinus Rhythm ECG Interpretation: No Acute Changes Rate From EC O2 Sat by Pulse Oximetry: 96 (on RA) Pulse Ox Interpretation: Normal Medical Decision Making Medical Decision Making: Patients labs are unremarkable; She has been seen in ER for same complaint, multiple times in the past. Case discussed w/ Dr Robertson, requesting for patient to be discharged for outpatient f/u in office. Disposition - Disposition Referrals: Dontrell Bob MD [Staff Provider] - Disposition: HOME/ ROUTINE Disposition Time: 11:00 Condition: STABLE Additional Instructions: return to er with worsening symptoms or concerns. Instructions: Chest Pain (ED), Palpitations (ED) Forms: [employer] (Hungarian) - Clinical Impression Clinical Impression: Palpitations - Scribe Statement The provider has reviewed the documentation as recorded by the Scribe (Markus Meyer) All medical record entries made by the Scribe were at my direction and personally dictated by me. I have reviewed the chart and agree that the record accurately reflects my personal performance of the history, physical exam, medical decision making, and the department course for this patient. I have also personally directed, reviewed, and agree with the discharge instructions and disposition.
[2017-07-05 09:36] LABS: CHLORIDE 102 mmol/L (98-107)
--- NOTE | 2017-07-05 09:36 | RAD ---
PROCEDURE: CHEST RADIOGRAPH, 1 VIEW HISTORY: Chest pain COMPARISON: 06/25/2017. FINDINGS: LUNGS: The lungs are well inflated and clear. PLEURA: No pneumothorax or pleural fluid seen. CARDIOVASCULAR: Normal. OSSEOUS STRUCTURES: No significant abnormalities. VISUALIZED UPPER ABDOMEN: Normal. OTHER FINDINGS: None. IMPRESSION: No active pulmonary disease.
[2017-07-05 09:37] LABS: POTASSIUM 3.4 mmol/L (3.6-5.2); SODIUM 139 mmol/L (132-148)
[2017-07-05 09:38] LABS: BASO # 0.1 K/uL (0.0-0.2); EOS # 0.1 K/uL (0.0-0.7); EOS % 1.5 % (0.0-4.0); LYMPH # 1.7 K/uL (1.0-4.3); LYMPH % 22.1 % (20.0-40.0); MEAN CELL VOLUME 80.5 fL (81.0-99.0); MEAN CORPUSCULAR HEMOGLOBIN 26.4 pg (27.0-31.0); MEAN CORPUSCULAR HGB CONC 32.8 g/dL (33.0-37.0); MONO # 0.4 K/uL (0.0-0.8); MONO % 4.7 % (0.0-10.0); RED CELL DISTRIBUTION WIDTH 15.8 % (11.5-14.5); WHITE BLOOD COUNT 7.7 K/uL (4.8-10.8)
[2017-07-05 09:39] LABS: ALB/GLOB RATIO 0.9 (1.0-2.1); ALKALINE PHOSPHATASE 85 U/L (38-126); AST/SGOT 17 U/L (14-36); BILIRUBIN,TOTAL 0.3 mg/dL (0.2-1.3); BLOOD UREA NITROGEN 15 mg/dL (7-17); CARBON DIOXIDE 25 mmol/L (22-30); GFR AFRICAN-AMERICAN > 60; TOTAL PROTEIN 8.8 g/dL (6.3-8.3)
[2017-07-05 09:40] LABS: ALT/SGPT 38 U/L (9-52); CALCIUM 9.1 mg/dl (8.6-10.4); GLUCOSE,RANDOM 112 mg/dL (65-105)
[2017-07-05 09:42] LABS: INR 1.1
[2017-07-05] MEDS ORDERED: Potassium Chloride 20 mEq ER Tab PO STA (10:06)
[2017-07-05] MEDS ORDERED: Potassium Chloride 20 mEq ER Tab PO ONE (10:15)
[2017-07-05 10:21] LABS: RBC URINE 1 /hpf (0-3); URINE BACTERIA RARE (<OCC); URINE BILIRUBIN NEGATIVE (NEGATIVE); URINE BLOOD NEGATIVE (NEGATIVE); URINE COLOR Yellow (YELLOW); URINE GLUCOSE (UA) NORMAL (Normal); URINE KETONE NEGATIVE (NEGATIVE); URINE LEUKOCYTE ESTERASE NEG Leu/uL (Negative); URINE PROTEIN NEGATIVE (NEGATIVE); WBC URINE 2 /hpf (0-5)
[2017-07-05 10:23] VITALS: BP 111/61; PULSE 68
[2017-07-05 10:36] VITALS: O2SAT 96
--- NOTE | 2017-07-06 21:41 | CARD ---
APPROVED REPORT EKG Measurement Heart [id number] <Conclusion> Normal sinus rhythm Prolonged QT Abnormal ECG
== END 2017-07-05 10:43 | disposition home or self-care (01) ==
LOC: C.ER 08:16
DX: R00.2 Palpitations (principal); I10 Essential (primary) hypertension; E11.9 Type 2 diabetes mellitus without complications; I48.91 Unspecified atrial fibrillation; E78.00 Pure hypercholesterolemia, unspecified

== ENCOUNTER 2017-07-30 17:19 | Observation (INO) | payer MEDICARE, MEDICAID ==
[2017-07-30 17:19] VITALS: BMI 36.0
[2017-07-30] MEDS ORDERED: Alum-Mag Hydrox-Simethicone Susp (30 mL) PO STA (18:02)
[2017-07-30] MEDS ORDERED: Alum-Mag Hydrox-Simethicone Susp (30 mL) ONE (18:12)
[2017-07-30 18:15] LABS: BASO # 0.1 K/uL (0.0-0.2); BASO % 0.7 % (0.0-2.0); EOS # 0.3 K/uL (0.0-0.7); EOS % 3.5 % (0.0-4.0); HEMATOCRIT 38.3 % (34.0-47.0); LYMPH # 2.9 K/uL (1.0-4.3); LYMPH % 29.5 % (20.0-40.0); MEAN CELL VOLUME 79.7 fL (81.0-99.0); MEAN CORPUSCULAR HEMOGLOBIN 26.1 pg (27.0-31.0); MEAN CORPUSCULAR HGB CONC 32.8 g/dL (33.0-37.0); MEAN PLATELET VOLUME 8.8 fL (7.2-11.7); MONO # 0.5 K/uL (0.0-0.8); MONO % 4.6 % (0.0-10.0); RED CELL DISTRIBUTION WIDTH 15.3 % (11.5-14.5); WHITE BLOOD COUNT 9.9 K/uL (4.8-10.8)
--- NOTE | 2017-07-30 18:20 | C.PDOC ---
History Of Present Illness Patient is a 56 y/o F with hx of atrial fibrillation, copd, htn, dm, asthma, 2 cardiac ablations, with cath 11/14/16 normal after abnormal stress, presenting c/ o palpitations. Patient reports she was at home when she suddenly felt palpitations, nausea and chest tightness. Patient reports taking aspirin 81 mg today. Patient denies vomit, fever, headache, SOB, abdominal pain, dizziness, leg swelling. Patients PMD is Alec Britt. Time Seen by Provider: 07/30/17 17:44 Chief Complaint (Nursing): Palpitations History Per: Patient History/Exam Limitations: no limitations Onset/Duration Of Symptoms: Hrs Current Symptoms Are (Timing): Still Present Quality: Tightness Associated Symptoms: Nausea Modifying Factors: None Recent travel outside of the [place]: No Additional History Per: Patient Past Medical History Reviewed: Historical Data, Nursing Documentation, Vital Signs Vital Signs: Last Vital Signs Temp 97.9 F 07/30/17 17:45 Pulse 70 07/30/17 21:31 Resp 14 07/30/17 21:31 BP 118/55 L 07/30/17 21:31 Pulse Ox 97 07/30/17 21:31 - Medical History PMH: Anxiety, Arthritis (hands), Atrial Fibrillation, CAD, Cardia Arrhythmia, CHF, COPD, Depression, Diabetes (hypoglycemia), Gastritis, Gall Bladder Disease , HTN, Hypercholesterolemia Denies: Chronic Kidney Disease Surgical History: Cholecystectomy, Coronary Stent (x2) Family History: States: Unknown Family Hx - Social History Hx Tobacco Use: Yes (QUIT) Hx Alcohol Use: No Hx Substance Use: No - Immunization History Hx Tetanus Toxoid Vaccination: No Hx Influenza Vaccination: No Hx Pneumococcal Vaccination: No Review Of Systems Constitutional: Negative for: Fever, Chills Cardiovascular: Positive for: Chest Pain, Palpitations Respiratory: Negative for: Cough, Shortness of Breath Gastrointestinal: Positive for: Nausea. Negative for: Vomiting, Abdominal Pain Genitourinary: Negative for: Dysuria, Hematuria Skin: Negative for: Rash Neurological: Negative for: Weakness, Numbness, Headache, Dizziness Physical Exam - Physical Exam Appears: Non-toxic, No Acute Distress Skin: Normal Color, Warm, Dry Head: Atraumatic, Normacephalic Nose: No Discharge Oral Mucosa: Moist Neck: Normal ROM, Supple Chest: Symmetrical Cardiovascular: Rhythm Regular, No Murmur Respiratory: Normal Breath Sounds, No Rales, No Rhonchi, No Wheezing Gastrointestinal/Abdominal: Soft, No Tenderness, No Distention, No Rebound Extremity: Normal ROM, No Pedal Edema, No Calf Tenderness, Capillary Refill (< 2 seconds), No Deformity, No Swelling Neurological/Psych: Oriented x3, Normal Speech, Normal Cognition Gait: Steady ED Course And Treatment - Laboratory Results Result Diagrams: 07/30/17 18:10 07/30/17 18:10 O2 Sat by Pulse Oximetry: 99 (On RA) Pulse Ox Interpretation: Normal - Radiology CXR: Interpreted by Me, Viewed By Me CXR Interpretation: Yes: Other (No focal consolidation, significant pleural effusion, or definite pneumothorax identified.) Medical Decision Making Medical Decision Making: Plan: * EKG * CXR * Aspirin 243 mg PO * Pepcid 20 mg IVP * Maalox plus 20 ml PO EKG shows sinus tachycardia at 104bpm with pacs. ST depression in inferior leads CXR : No focal consolidation, significant pleural effusion, or definite pneumothorax identified. Patient now pain free. Due to risk factors, including htn and dm, will transfer to tele observation for chest pain. Spoke to Dr. Robertson as he sometimes covers for patient's PMD and he is requesting tele observation under hospitalist. Disposition - Disposition Disposition: HOSPITALIZED Disposition Time: 19:46 Condition: FAIR - Clinical Impression Clinical Impression: Palpitations, Chest pain - Scribe Statement The provider has reviewed the documentation as recorded by the Scribe Luis Victoria All medical record entries made by the Scribe were at my direction and personally dictated by me. I have reviewed the chart and agree that the record accurately reflects my personal performance of the history, physical exam, medical decision making, and the department course for this patient. I have also personally directed, reviewed, and agree with the discharge instructions and disposition.
[2017-07-30 18:38] LABS: BILIRUBIN,TOTAL 0.7 mg/dL (0.2-1.3); CALCIUM 8.9 mg/dl (8.6-10.4); GFR AFRICAN-AMERICAN > 60; GLUCOSE,RANDOM 112 mg/dL (65-105); TOTAL PROTEIN 9.3 g/dL (6.3-8.3)
[2017-07-30 18:40] LABS: ALB/GLOB RATIO 0.8 (1.0-2.1); ALKALINE PHOSPHATASE 79 U/L (38-126); ALT/SGPT 41 U/L (9-52); AST/SGOT 28 U/L (14-36); BLOOD UREA NITROGEN 14 mg/dL (7-17); CARBON DIOXIDE 29 mmol/L (22-30); CHLORIDE 103 mmol/L (98-107); POTASSIUM 3.7 mmol/L (3.6-5.2); SODIUM 139 mmol/L (132-148)
--- NOTE | 2017-07-30 18:46 | RAD ---
HISTORY: palpitations COMPARISON: Chest x-ray performed 07/05/17 TECHNIQUE: Chest, one view. FINDINGS: Examination limited by habitus. LUNGS: No focal consolidation. Please note that chest x-ray has limited sensitivity for the detection of pulmonary masses. PLEURA: No significant pleural effusion identified. No definite pneumothorax . CARDIOVASCULAR: Heart size appears top normal. OSSEOUS STRUCTURES: Degenerative changes. VISUALIZED UPPER ABDOMEN: Unremarkable. OTHER FINDINGS: None. IMPRESSION: No focal consolidation, significant pleural effusion, or definite pneumothorax identified.
[2017-07-30] MEDS ORDERED: Albuterol HFA 90 mcg/actuation (8 g) IH PRN (23:04)
[2017-07-30] MEDS ORDERED: HYDROCHLOROTHIAZID PO PRN (23:04)
[2017-07-30] MEDS ORDERED: TELMISARTAN PO PRN (23:04)
[2017-07-30] MEDS ORDERED: Ammonium Lactate 12% Lotion (225 g) TOP PRN (23:04)
--- NOTE | 2017-07-30 23:43 | CP.PCM.HP ---
<Yesenia Doherty - Last Filed: 07/31/17 01:07> History of Present Illness - History of Present Illness History of Present Illness: CC: chest pain HPI: 56F with PMH of atrial fibrillation with 2 ablations (last in Aug 2016), anxiety, depression, TIA (2007), COPD, HTN, HLD, DM, asthma, osteoarthritis, and gastritis, who presents to the ED complaining of substernal sharp, 10/10 chest pain that started yesterday when she woke up accompanied by palpitations, SOB and dizziness. Patient says today she woke up with generalized 10/10 stomach pain, nausea, and vomiting x1 of undigested food. she says the abdominal pain and chest pain are worse when she eats but nothing makes it better. She says all she had to eat today was toast and juice which was after the pain started. She also admits to mild generalized headache occasional sweats , and sick contacts (grandchildren). She denies fever, changes in vision/hearing , numbness, sore throat, cough, diarrhea, constipation, hematemesis, hematochezia, melena, hematuria, dysuria, leg pain, swelling, rashes, easy bruising, an recent travel. PMD: [employer] Advisor: Leah PMH: as per HPI; questionable CAD and CHF as per EMR PSH: lap meme, ,tubal ligation, removal of cyst x2 Cardiac Procedures: 2 cardiac ablations (last in August 2016) cath 11/14/16 normal afer equivocal stress test and echo 10/17 with normal LVF and EF of 75% Meds: * Metoprolol 25 mg BID * ASA 81mg QD * Klonapin 1mg TID * Telmisartan/HCTZ QD * Simethicone 80mg TID * Carafate 1g TID * Omeprazole * Ventolin 2 puff Q6 PRN * Colace 100 mg QD * Metformin 500 mg QD * Singulair 10 mg QD * Protonix 40mg QD * Miralax BID Allergies: wool, flu and pneumonia vaccine FH: denies SH: former 1PPD smoker (quit in 2007; denies alcohol and drug use; lives with daughter; on disability Present on Admission - Present on Admission Any Indicators Present on Admission: No Review of Systems - Review of Systems All systems: reviewed and no additional remarkable complaints except (as per HPI ) Past Patient History - Infectious Disease Hx of Infectious Diseases: None - Tetanus Immunizations Tetanus Immunization: Unknown - Past Medical History & Family History Past Medical History?: Yes - Past Social History Smoking Status: Never Smoked - CARDIAC Hx Atrial Fibrillation: Yes Hx Cardia Arrhythmia: Yes Hx Congestive Heart Failure: Yes Hx Hypercholesterolemia: Yes Hx Hypertension: Yes - PULMONARY Hx Chronic Obstructive Pulmonary Disease (COPD): Yes - NEUROLOGICAL Hx Neurological Disorder: Yes HX Cerebrovascular Accident: Yes - HEENT Hx HEENT Problems: Yes Other/Comment: wears glasses for reading - RENAL Hx Chronic Kidney Disease: No - ENDOCRINE/METABOLIC Hx Endocrine Disorders: Yes Hx Diabetes Mellitus Type 1: Yes - HEMATOLOGICAL/ONCOLOGICAL Hx Blood Disorders: No - INTEGUMENTARY Hx Dermatological Problems: Yes Hx Eczema: Yes - MUSCULOSKELETAL/RHEUMATOLOGICAL Hx Arthritis: Yes (hands) - GASTROINTESTINAL Hx Gall Bladder Disease: Yes Hx Gastritis: Yes - GENITOURINARY/GYNECOLOGICAL Hx Genitourinary Disorders: No - PSYCHIATRIC Hx Anxiety: Yes Hx Depression: Yes Hx Substance Use: No - SURGICAL HISTORY Hx Cholecystectomy: Yes Hx Coronary Stent: Yes (x2) - ANESTHESIA Hx Anesthesia: Yes Hx Anesthesia Reactions: No Meds Home Medications: Home Medication List Medication Instructions Recorded Confirmed Type Metoprolol Tartrate [Lopressor] 25 mg PO BID 30 Days #60 tab 07/31/17 Rx Allergies/Adverse Reactions: Allergies Allergy/AdvReac Type Severity Reaction Status Date / Time escitalopram [From Lexapro] AdvReac Verified 07/30/17 17:48 Flu vaccine Allergy Uncoded 07/30/17 17:48 pnuemonia vaccine Allergy Uncoded 07/30/17 17:48 wool Allergy Uncoded 07/30/17 17:48 Physical Exam - Constitutional Appears: Non-toxic, No Acute Distress - Head Exam Head Exam: NORMAL INSPECTION - Eye Exam Eye Exam: EOMI, Normal appearance - ENT Exam ENT Exam: Mucous Membranes Moist - Neck Exam Neck exam: Positive for: Normal Inspection - Respiratory Exam Respiratory Exam: Clear to Auscultation Bilateral, NORMAL BREATHING PATTERN. absent: Rales, Rhonchi, Wheezes - Cardiovascular Exam Cardiovascular Exam: RRR, +S1, +S2. absent: Bradycardia, Tachycardia, Diastolic murmur, Gallop, Rubs, Systolic Murmur - GI/Abdominal Exam GI & Abdominal Exam: Normal Bowel Sounds, Soft, Tenderness (generalized). absent: Distended, Firm, Guarding, Rebound, Rigid - Extremities Exam Extremities exam: Positive for: normal capillary refill, normal inspection, pedal pulses present. 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 - Psychiatric Exam Psychiatric exam: Anxious (and crying throughout H&P ), Depressed, Normal Affect - Skin Skin Exam: Dry, Intact, Normal Color, Warm Results - Vital Signs Recent Vital Signs: Last Vital Signs Temp 97.9 F 07/30/17 17:45 Pulse 70 07/30/17 21:31 Resp 14 07/30/17 21:31 BP 118/55 L 07/30/17 21:31 Pulse Ox 99 07/30/17 21:36 - Labs Result Diagrams: 07/30/17 18:10 07/30/17 18:10 Labs: Laboratory Results - last 24 hr 07/30/17 07/30/17 07/30/17 18:02 18:10 18:10 WBC 9.9 RBC 4.81 Hgb 12.6 Hct 38.3 MCV 79.7 L MCH 26.1 L MCHC 32.8 L RDW 15.3 H Plt Count 343 MPV 8.8 Neut % (Auto) 61.7 Lymph % (Auto) 29.5 [place] % (Auto) 4.6 Eos % (Auto) 3.5 Baso % (Auto) 0.7 Neut # 6.1 Lymph # 2.9 [place] # 0.5 Eos # 0.3 Baso # 0.1 Sodium 139 Potassium 3.7 Chloride 103 Carbon Dioxide 29 Anion Gap 11 BUN 14 Creatinine 0.8 Est GFR ( Amer) > 60 Est GFR (Non-Af Amer) > 60 POC Glucose (mg/dL) 106 Random Glucose 112 H Calcium 8.9 Total Bilirubin 0.7 AST 28 ALT 41 Alkaline Phosphatase 79 Total Creatine Kinase 68 Troponin I < 0.0120 NT-Pro-B Natriuret Pep < 11.1 Total Protein 9.3 H Albumin 4.1 Globulin 5.2 H Albumin/Globulin Ratio 0.8 L Lipase 203 Assessment & Plan - Assessment and Plan (Free Text) Plan: Chest pain with palpitations * History of AFib with normal stress test, echo, and cath * Cardiology consulted (Jonathan) - recs appreciated * ANGELIKA negative x1, EKG with sinus tachy and occasional PACs with ST and T wave abnormality * trend ROMIs and EKG * BNP <11.1 * Echo * CXR: no acute disease * Thyroid panel * restarted ASA, metoprolol, telmisartan/HCTZ, and add Crestor 5mg QHS * Tylenol PRN pain History of Anxiety * Psych consulted - recs appreciated * Klonopin 1mg PO TID Abdominal pain * history of gastritis and constipation * continue home meds: maalox, colace, protonix, miralax, simethicone, carafate * Lipase 203 * Zofran PRN nausea History of NIDDM * Metformin 500 mg QD * Accuchecks ACHS History of Asthma and COPD * continue home Ventolin PRN History HLD * Lipid panel Prohylaxis * Heparin * Protonix * SCDs <Jake Cruz - Last Filed: 07/31/17 19:33> Results - Vital Signs Recent Vital Signs: Last Vital Signs Temp 98.0 F 07/31/17 08:28 Pulse 71 07/31/17 12:00 Resp 20 07/31/17 08:28 BP 111/71 07/31/17 10:24 Pulse Ox 98 07/31/17 08:28 - Labs Result Diagrams: 07/31/17 07:51 07/31/17 01:41 Labs: Laboratory Results - last 24 hr 07/30/17 07/31/17 07/31/17 23:53 01:20 01:41 WBC RBC Hgb Hct MCV MCH MCHC RDW Plt Count MPV Neut % (Auto) Lymph % (Auto) [place] % (Auto) Eos % (Auto) Baso % (Auto) Neut # Lymph # [place] # Eos # Baso # APTT Sodium 139 Potassium 3.0 L Chloride 103 Carbon Dioxide 28 Anion Gap 11 BUN 13 Creatinine 0.8 Est GFR ( Amer) > 60 Est GFR (Non-Af Amer) > 60 POC Glucose (mg/dL) 84 Random Glucose 96 Lactic Acid Calcium 8.7 Total Bilirubin 0.5 AST 17 ALT 30 Alkaline Phosphatase 88 Total Creatine Kinase 58 CK-MB (Mass) 0.27 Troponin I < 0.0120 Total Protein 7.0 Albumin 3.7 Globulin 3.4 Albumin/Globulin Ratio 1.1 Triglycerides 97 Cholesterol 165 LDL Cholesterol Direct 95 HDL Cholesterol 31 Free T4 TSH 3rd Generation 07/31/17 07/31/17 07/31/17 06:27 07:51 07:51 WBC 7.8 RBC 4.60 Hgb 12.2 Hct 36.7 MCV 79.9 L MCH 26.5 L MCHC 33.2 RDW 15.0 H Plt Count 186 D MPV 9.7 Neut % (Auto) 49.9 L Lymph % (Auto) 36.3 [place] % (Auto) 6.8 Eos % (Auto) 5.4 H Baso % (Auto) 1.6 Neut # 3.9 Lymph # 2.8 [place] # 0.5 Eos # 0.4 Baso # 0.1 APTT Sodium Potassium Chloride Carbon Dioxide Anion Gap BUN Creatinine Est GFR ( Amer) Est GFR (Non-Af Amer) POC Glucose (mg/dL) 100 Random Glucose Lactic Acid Calcium Total Bilirubin AST ALT Alkaline Phosphatase Total Creatine Kinase CK-MB (Mass) Troponin I Total Protein Albumin Globulin Albumin/Globulin Ratio Triglycerides Cholesterol LDL Cholesterol Direct HDL Cholesterol Free T4 1.27 TSH 3rd Generation 1.42 07/31/17 07/31/17 07/31/17 07:54 11:23 11:36 WBC RBC Hgb Hct MCV MCH MCHC RDW Plt Count MPV Neut % (Auto) Lymph % (Auto) [place] % (Auto) Eos % (Auto) Baso % (Auto) Neut # Lymph # [place] # Eos # Baso # APTT 22 Sodium Potassium Chloride Carbon Dioxide Anion Gap BUN Creatinine Est GFR ( Amer) Est GFR (Non-Af Amer) POC Glucose (mg/dL) 117 H Random Glucose Lactic Acid Calcium Total Bilirubin AST ALT Alkaline Phosphatase Total Creatine Kinase 57 CK-MB (Mass) 0.26 Troponin I < 0.0120 Total Protein Albumin Globulin Albumin/Globulin Ratio Triglycerides Cholesterol LDL Cholesterol Direct HDL Cholesterol Free T4 TSH 3rd Generation 07/31/17 11:36 WBC RBC Hgb Hct MCV MCH MCHC RDW Plt Count MPV Neut % (Auto) Lymph % (Auto) [place] % (Auto) Eos % (Auto) Baso % (Auto) Neut # Lymph # [place] # Eos # Baso # APTT Sodium Potassium Chloride Carbon Dioxide Anion Gap BUN Creatinine Est GFR ( Amer) Est GFR (Non-Af Amer) POC Glucose (mg/dL) Random Glucose Lactic Acid 1.5 Calcium Total Bilirubin AST ALT Alkaline Phosphatase Total Creatine Kinase CK-MB (Mass) Troponin I Total Protein Albumin Globulin Albumin/Globulin Ratio Triglycerides Cholesterol LDL Cholesterol Direct HDL Cholesterol Free T4 TSH 3rd Generation Assessment & Plan - Date & Time Date: 07/31/17 (I have seen and examined the patient. I agree with the findings and plan of care as documented by Dr. Doherty. Patient with chest pain. Consult to Dr. Lynn. Continue home meds. Aspirin and Statin. Continue home meds for history of diabetes. Continue home meds for history of anxiety. Continue home meds for abdominal pain. Abdomen soft, non tender on exam. No rebound or guarding. Monitor for acute changes.) Time: 19:30 Attending/Attestation - Attestation I have personally seen and examined this patient.: Yes I have fully participated in the care of the patient.: Yes I have reviewed all pertinent clinical information: Yes
[2017-07-31 01:35] LABS: CHOLESTEROL 165 mg/dL (0-199)
[2017-07-31 01:59] LABS: ALB/GLOB RATIO 1.1 (1.0-2.1); ALKALINE PHOSPHATASE 88 U/L (38-126); ALT/SGPT 30 U/L (9-52); AST/SGOT 17 U/L (14-36); BILIRUBIN,TOTAL 0.5 mg/dL (0.2-1.3); BLOOD UREA NITROGEN 13 mg/dL (7-17); CALCIUM 8.7 mg/dl (8.6-10.4); CARBON DIOXIDE 28 mmol/L (22-30); CHLORIDE 103 mmol/L (98-107); GFR AFRICAN-AMERICAN > 60; GLUCOSE,RANDOM 96 mg/dL (65-105); SODIUM 139 mmol/L (132-148)
[2017-07-31 02:12] VITALS: RESP 20
[2017-07-31 04:33] VITALS: O2SAT 98
[2017-07-31] MEDS ORDERED: Potassium Chloride 20 mEq ER Tab PO ONE ×2 (04:45→13:25)
[2017-07-31 08:29] VITALS: TEMP 98
[2017-07-31 08:32] LABS: BASO # 0.1 K/uL (0.0-0.2); BASO % 1.6 % (0.0-2.0); EOS # 0.4 K/uL (0.0-0.7); EOS % 5.4 % (0.0-4.0); HEMATOCRIT 36.7 % (34.0-47.0); LYMPH # 2.8 K/uL (1.0-4.3); LYMPH % 36.3 % (20.0-40.0); MEAN CELL VOLUME 79.9 fL (81.0-99.0); MEAN CORPUSCULAR HEMOGLOBIN 26.5 pg (27.0-31.0); MEAN CORPUSCULAR HGB CONC 33.2 g/dL (33.0-37.0); MEAN PLATELET VOLUME 9.7 fL (7.2-11.7); MONO # 0.5 K/uL (0.0-0.8); MONO % 6.8 % (0.0-10.0); NRBC % 1.3 % (0.0-2.0); WHITE BLOOD COUNT 7.8 K/uL (4.8-10.8)
--- NOTE | 2017-07-31 09:04 | CP.PCM.CON ---
History of Present Illness - History of Present Illness History of Present Illness: Th pt is a 56 year old woman with a history of svt, s/t two ablations, and multiple admissions afterwards to several hospitals for palpitations and chest pain. pt c/o abdominal and chest pain, worse with deep breath. C Cath this year was normal. Echo earlier this year; normal LV EF and doppler. Pt is in nsr and ecg is normal. Shecries about the pain, without tears, and then abruptly stops. She has been diagnosed with n anxiety disorder. Review of Systems - Review of Systems All systems: reviewed and no additional remarkable complaints except (as above, otherwise negative) Past Patient History - Infectious Disease Hx of Infectious Diseases: None - Tetanus Immunizations Tetanus Immunization: Unknown - Past Medical History & Family History Past Medical History?: Yes - Past Social History Smoking Status: Never Smoked - CARDIAC Hx Atrial Fibrillation: Yes Hx Cardia Arrhythmia: Yes Hx Congestive Heart Failure: Yes Hx Hypercholesterolemia: Yes Hx Hypertension: Yes - PULMONARY Hx Chronic Obstructive Pulmonary Disease (COPD): Yes - NEUROLOGICAL Hx Neurological Disorder: Yes HX Cerebrovascular Accident: Yes - HEENT Hx HEENT Problems: Yes Other/Comment: wears glasses for reading - RENAL Hx Chronic Kidney Disease: No - ENDOCRINE/METABOLIC Hx Endocrine Disorders: Yes Hx Diabetes Mellitus Type 1: Yes - HEMATOLOGICAL/ONCOLOGICAL Hx Blood Disorders: No - INTEGUMENTARY Hx Dermatological Problems: Yes Hx Eczema: Yes - MUSCULOSKELETAL/RHEUMATOLOGICAL Hx Arthritis: Yes (hands) - GASTROINTESTINAL Hx Gall Bladder Disease: Yes Hx Gastritis: Yes - GENITOURINARY/GYNECOLOGICAL Hx Genitourinary Disorders: No - PSYCHIATRIC Hx Anxiety: Yes Hx Depression: Yes Hx Substance Use: No - SURGICAL HISTORY Hx Cholecystectomy: Yes Hx Coronary Stent: Yes (x2) - ANESTHESIA Hx Anesthesia: Yes Hx Anesthesia Reactions: No Meds Allergies/Adverse Reactions: Allergies Allergy/AdvReac Type Severity Reaction Status Date / Time escitalopram [From Lexapro] AdvReac Verified 07/30/17 17:48 Flu vaccine Allergy Uncoded 07/30/17 17:48 pnuemonia vaccine Allergy Uncoded 07/30/17 17:48 wool Allergy Uncoded 07/30/17 17:48 - Medications Medications: Current Medications Acetaminophen (Tylenol 325mg Tab) 650 mg PO Q6 PRN PRN Reason: Pain, moderate (4-7) Last Admin: 07/31/17 01:49 Dose: 650 mg Albuterol (Ventolin Hfa 90 Mcg/Actuation (8 G)) 2 puff IH RQ6 PRN PRN Reason: Cough Aspirin (Ecotrin) 81 mg PO DAILY COUNTS INCLUDE 234 BEDS AT THE [facility] Clonazepam (Klonopin) 1 mg PO TID COUNTS INCLUDE 234 BEDS AT THE [facility] Docusate Sodium (Colace) 100 mg PO DAILY COUNTS INCLUDE 234 BEDS AT THE [facility] Heparin Sodium (Porcine) (Heparin) 5,000 units SC Q8 COUNTS INCLUDE 234 BEDS AT THE [facility] Last Admin: 07/31/17 06:07 Dose: 5,000 units Home Med (Colloidal Oatmeal [Eucerin Eczema Relief]) 226 gm TP QID PRN PRN Reason: eczema,dry skin Home Med (Telmisartan/Hydrochlorothiazid [Micardis Hct 40-12.5 Mg Tablet]) 1 tab PO DAILY COUNTS INCLUDE 234 BEDS AT THE [facility] Metformin HCl (Glucophage) 500 mg PO DAILY COUNTS INCLUDE 234 BEDS AT THE [facility] Metoprolol Tartrate (Lopressor) 25 mg PO BID COUNTS INCLUDE 234 BEDS AT THE [facility] Montelukast Sodium (Singulair) 10 mg PO DAILY COUNTS INCLUDE 234 BEDS AT THE [facility] Ondansetron HCl (Zofran Inj) 4 mg IVP Q6 PRN PRN Reason: Nausea/Vomiting Last Admin: 07/31/17 01:50 Dose: 4 mg Pantoprazole Sodium (Protonix Ec Tab) 40 mg PO DAILY COUNTS INCLUDE 234 BEDS AT THE [facility] Polyethylene Glycol (Miralax) 17 gm PO BID COUNTS INCLUDE 234 BEDS AT THE [facility] Rosuvastatin Calcium (Crestor) 5 mg PO HS COUNTS INCLUDE 234 BEDS AT THE [facility] Last Admin: 07/30/17 23:56 Dose: 5 mg Simethicone (Mylicon Chew Tab) 80 mg PO TID COUNTS INCLUDE 234 BEDS AT THE [facility] Sucralfate (Carafate Tab) 1 gm PO TID COUNTS INCLUDE 234 BEDS AT THE [facility] Physical Exam - Constitutional Appears: Well, Agitated - Head Exam Head Exam: ATRAUMATIC - Eye Exam Eye Exam: EOMI - ENT Exam ENT Exam: Mucous Membranes Moist - Neck Exam Neck exam: Positive for: Normal Inspection - Respiratory Exam Respiratory Exam: Clear to Auscultation Bilateral - GI/Abdominal Exam GI & Abdominal Exam: Normal Bowel Sounds - Exam External exam: NORMAL EXTERNAL EXAM - Extremities Exam Extremities exam: Positive for: normal inspection - Back Exam Back exam: NORMAL INSPECTION - Neurological Exam Neurological exam: Alert, CN II-XII Intact, Oriented x3, Reflexes Normal - Psychiatric Exam Psychiatric exam: Anxious - Skin Skin Exam: Dry Results - Vital Signs Recent Vital Signs: Last Vital Signs Temp 98.0 F 07/31/17 08:28 Pulse 72 07/31/17 08:28 Resp 20 07/31/17 08:28 BP 109/69 07/31/17 08:28 Pulse Ox 98 07/31/17 08:28 - Labs Result Diagrams: 07/31/17 07:51 07/31/17 01:41 Labs: Laboratory Results - last 24 hr 07/30/17 07/30/17 07/30/17 18:02 18:10 18:10 WBC 9.9 RBC 4.81 Hgb 12.6 Hct 38.3 MCV 79.7 L MCH 26.1 L MCHC 32.8 L RDW 15.3 H Plt Count 343 MPV 8.8 Neut % (Auto) 61.7 Lymph % (Auto) 29.5 [place] % (Auto) 4.6 Eos % (Auto) 3.5 Baso % (Auto) 0.7 Neut # 6.1 Lymph # 2.9 [place] # 0.5 Eos # 0.3 Baso # 0.1 Sodium 139 Potassium 3.7 Chloride 103 Carbon Dioxide 29 Anion Gap 11 BUN 14 Creatinine 0.8 Est GFR ( Amer) > 60 Est GFR (Non-Af Amer) > 60 POC Glucose (mg/dL) 106 Random Glucose 112 H Calcium 8.9 Total Bilirubin 0.7 AST 28 ALT 41 Alkaline Phosphatase 79 Total Creatine Kinase 68 CK-MB (Mass) Troponin I < 0.0120 NT-Pro-B Natriuret Pep < 11.1 Total Protein 9.3 H Albumin 4.1 Globulin 5.2 H Albumin/Globulin Ratio 0.8 L Triglycerides Cholesterol LDL Cholesterol Direct HDL Cholesterol Lipase 203 07/30/17 07/31/17 07/31/17 23:53 01:20 01:41 WBC RBC Hgb Hct MCV MCH MCHC RDW Plt Count MPV Neut % (Auto) Lymph % (Auto) [place] % (Auto) Eos % (Auto) Baso % (Auto) Neut # Lymph # [place] # Eos # Baso # Sodium 139 Potassium 3.0 L Chloride 103 Carbon Dioxide 28 Anion Gap 11 BUN 13 Creatinine 0.8 Est GFR ( Amer) > 60 Est GFR (Non-Af Amer) > 60 POC Glucose (mg/dL) 84 Random Glucose 96 Calcium 8.7 Total Bilirubin 0.5 AST 17 ALT 30 Alkaline Phosphatase 88 Total Creatine Kinase 58 CK-MB (Mass) 0.27 Troponin I < 0.0120 NT-Pro-B Natriuret Pep Total Protein 7.0 Albumin 3.7 Globulin 3.4 Albumin/Globulin Ratio 1.1 Triglycerides 97 Cholesterol 165 LDL Cholesterol Direct 95 HDL Cholesterol 31 Lipase 07/31/17 07/31/17 07/31/17 06:27 07:51 07:54 WBC 7.8 RBC 4.60 Hgb 12.2 Hct 36.7 MCV 79.9 L MCH 26.5 L MCHC 33.2 RDW 15.0 H Plt Count 186 D MPV 9.7 Neut % (Auto) 49.9 L Lymph % (Auto) 36.3 [place] % (Auto) 6.8 Eos % (Auto) 5.4 H Baso % (Auto) 1.6 Neut # 3.9 Lymph # 2.8 [place] # 0.5 Eos # 0.4 Baso # 0.1 Sodium Potassium Chloride Carbon Dioxide Anion Gap BUN Creatinine Est GFR ( Amer) Est GFR (Non-Af Amer) POC Glucose (mg/dL) 100 Random Glucose Calcium Total Bilirubin AST ALT Alkaline Phosphatase Total Creatine Kinase 57 CK-MB (Mass) Troponin I NT-Pro-B Natriuret Pep Total Protein Albumin Globulin Albumin/Globulin Ratio Triglycerides Cholesterol LDL Cholesterol Direct HDL Cholesterol Lipase - EKG Data EKG Interpreted by: Myself EKG shows normal: Sinus rhythm Rate: Normal - EKG Data When Compared to Previous EKG: No Significant Change Assessment & Plan - Assessment and Plan (Free Text) Assessment: 1. Non anginal chest pain. Pt has normal coronary arteries and does not have to stay in the hospital for a cardiac reason. Chest pain is reproducible with palpation 2. Anxiety disorder 3. Abdominal pain: work up as per medical team. 4. Replace k 5. Beta monica for h/o svt
[2017-07-31 09:10] LABS: FREE T4 1.27 ng/dL (0.78-2.19)
[2017-07-31 09:24] LABS: THYROID STIMULATING HORMONE 1.42 mIU/L (0.46-4.68)
[2017-07-31] MEDS ORDERED: Potassium Chloride 10 mEq ER Tab PO ONE (10:00)
[2017-07-31] MEDS ORDERED: Pantoprazole 40 mg EC Tab PO SCH (10:00)
[2017-07-31] MEDS ORDERED: POLYETHYLENE GLYCOL 3350 17 GM/Dose PACKET PO SCH (10:00)
[2017-07-31] MEDS: Simethicone 80 mg Chewtab PO SCH ×2 (10:26→14:40)
[2017-07-31 10:33] VITALS: BP 111/71
[2017-07-31 12:29] VITALS: PULSE 71
--- NOTE | 2017-07-31 13:28 | PCM.PSYCH ---
Initial Psychiatric Evaluation - Initial Psychiatric Evaluation Type of Admission: Voluntary Legal Status: Capacity Chief Complaint (in patient's own words): "I don't want to be labeled doc" History of Present Illness and Precipitating Events: The pt is seen, chart reviewed, case discussed with staff Pt is a 56y/o single female with a history of Anxiety, came to the ED for chest pain and palpitations. Pt becomes distressed and cries during the interview. Pt states that "she does not want to be labeled anymore, and there needs to be more respect." Pt is AAOx3. Pt is easily distracted and goes on tangents during the interview. Pt is being tapered off of Klonapine and is wondering about other options. However when asked about other medications pt states that she has "bad reaction" to every option posed to her. Pt is superficially cooperative during the interview. Pt lives with her 2 adult children. Pt denies feelings of depression and hopelessness. Pt denies feelings of paranoia and anxiety. Pt denies suicidal ideation and homicidal ideations. Pt denies auditory and visual hallucinations. Pt appears to have a constricted affect and soft speech but disorganized during the interview.Pt appeared preoccupied during the interview. As per ED, Patient is a 56 y/o F with hx of atrial fibrillation, copd, htn, dm, asthma, 2 cardiac ablations, with cath 11/14/16 normal after abnormal stress, presenting c/o palpitations. Patient reports she was at home when she suddenly felt palpitations, nausea and chest tightness. Patient reports taking aspirin 81 mg today. Patient denies vomit, fever, headache, SOB, abdominal pain, dizziness, leg swelling. Patients PMD is Alec Britt Past MHX: Atrial Fibrillation, COPD, HTN, Anxiety, DM 2 Past Family Psychiatric HX: denies Past Family Substance Abuse: denies Current Medications: Active Medications Generic Name Dose Route Start Last Admin Trade Name Freq PRN Reason Stop Dose Admin Acetaminophen 650 mg 07/31/17 00:58 07/31/17 10:28 Tylenol 325mg Tab PO 650 mg Q6 PRN Administration Pain, moderate (4-7) Albuterol 2 puff 07/30/17 23:04 Ventolin Hfa 90 Mcg/Actuation (8 G) IH RQ6 PRN Cough Aspirin 81 mg 07/31/17 10:00 07/31/17 10:26 Ecotrin PO 81 mg DAILY ANTONIA Administration Clonazepam 1 mg 07/31/17 10:00 07/31/17 10:23 Klonopin PO 1 mg TID ANTONIA Administration Docusate Sodium 100 mg 07/31/17 10:00 07/31/17 10:23 Colace PO 100 mg DAILY ANTONIA Administration Heparin Sodium (Porcine) 5,000 units 07/31/17 06:00 07/31/17 06:07 Heparin SC 5,000 units Q8 ANTONIA Administration Hydrochlorothiazide 12.5 mg 07/31/17 10:00 07/31/17 10:31 Microzide PO Not Given DAILY ANTONIA Lactic Acid 0 gm 07/30/17 23:04 Lac-Hydrin 12% Lotion (225 G) TOP QID PRN eczema,dry skin Losartan Potassium 50 mg 07/31/17 10:00 07/31/17 10:31 Cozaar PO Not Given DAILY ANTONIA Metformin HCl 500 mg 07/31/17 10:00 07/31/17 10:31 Glucophage PO Not Given DAILY ANTONIA Metoprolol Tartrate 25 mg 07/31/17 10:00 07/31/17 10:24 Lopressor PO 25 mg BID ANTONIA Administration Montelukast Sodium 10 mg 07/31/17 10:00 07/31/17 10:27 Singulair PO 10 mg DAILY ANTONIA Administration Ondansetron HCl 4 mg 07/31/17 00:58 07/31/17 01:50 Zofran Inj IVP 4 mg Q6 PRN Administration Nausea/Vomiting Pantoprazole Sodium 40 mg 07/31/17 10:00 07/31/17 10:26 Protonix Ec Tab PO 40 mg DAILY ANTONIA Administration Polyethylene Glycol 17 gm 07/31/17 10:00 07/31/17 10:20 Miralax PO 17 gm BID ANTONIA Administration Rosuvastatin Calcium 5 mg 07/30/17 23:15 07/30/17 23:56 Crestor PO 5 mg HS ANTONIA Administration Simethicone 80 mg 07/31/17 10:00 07/31/17 10:26 Mylicon Chew Tab PO 80 mg TID ANTONIA Administration Sucralfate 1 gm 07/31/17 10:00 07/31/17 10:22 Carafate Tab PO 1 gm TID ANTONIA Administration Past Psychiatric History - Past Psychiatric History Pertinent Medical Hx (Current Medical&Sleep Prob, Allergies): Allergies Allergy/AdvReac Type Severity Reaction Status Date / Time escitalopram [From Lexapro] AdvReac Verified 07/30/17 17:48 Flu vaccine Allergy Uncoded 07/30/17 17:48 pnuemonia vaccine Allergy Uncoded 07/30/17 17:48 wool Allergy Uncoded 07/30/17 17:48 Albuterol HFA [Ventolin HFA 90 mcg/actuation (8 g)] 2 puff IH [id number] PRN #1 inhaler 10/13/13 Aspirin [Aspir 81] 81 mg PO DAILY 10/13/13 metFORMIN [glucOPHAGE] 500 mg PO PRN PRN 01/10/17 Montelukast [Singulair] 10 mg PO DAILY #30 01/14/17 Sucralfate [Carafate] 1 gm PO TID #90 01/14/17 clonazePAM [Klonopin] 1 mg PO TID tab 01/14/17 Polyethylene Glycol 3350 [Miralax] 17 gm PO BID #20 powd.pack 01/22/17 Colloidal Oatmeal [Eucerin Eczema Relief] 226 gm TP QID PRN 06/02/17 Docusate [Colace] 100 mg PO DAILY 06/02/17 Omeprazole 20 mg PO DAILY 06/02/17 Simethicone [Mylicon Chew Tab] 80 mg PO TID 06/02/17 Telmisartan/Hydrochlorothiazid [Micardis Hct 40-12.5 mg Tablet] 1 tab PO PRN PRN 06/02/17 Mental Status Examination - Personal Presentation Personal Presentation: Looks stated age - Affect Affect: Constricted - Motor Activity Motor Activity: Calm - Reliability in Providing Information Reliability in Providing Information: Fair - Speech Speech: Disorganized, Tangential - Mood Mood: Depressed - Formal Thought Process Formal Thought Process: Circumstantial - Cognitive Functions Orientation: Person, Place, Situation, Time Sensorium: Alert Attention/Concentration: Attentive Judgement: Intact, as evidence by: Insight regarding need for hospitalization Memory: Remote intact, as evidenced by: Ability to recall historical events - Risk Risk: Diminished functioning
--- NOTE | 2017-07-31 16:38 | CP.PCM.DIS ---
Provider - Provider Date of Admission: 07/30/17 20:59 Attending physician: Jake Cruz MD Time Spent in preparation of Discharge (in minutes): 35 Hospital Course - Lab Results Lab Results: Most Recent Lab Values WBC 7.8 K/uL (4.8-10.8) 07/31/17 07:51 RBC 4.60 Mil/uL (3.80-5.20) 07/31/17 07:51 Hgb 12.2 g/dL (11.0-16.0) 07/31/17 07:51 Hct 36.7 % (34.0-47.0) 07/31/17 07:51 MCV 79.9 fL (81.0-99.0) L 07/31/17 07:51 MCH 26.5 pg (27.0-31.0) L 07/31/17 07:51 MCHC 33.2 g/dL (33.0-37.0) 07/31/17 07:51 RDW 15.0 % (11.5-14.5) H 07/31/17 07:51 Plt Count 186 K/uL (130-400) D 07/31/17 07:51 MPV 9.7 fL (7.2-11.7) 07/31/17 07:51 Neut % (Auto) 49.9 % (50.0-75.0) L 07/31/17 07:51 Lymph % (Auto) 36.3 % (20.0-40.0) 07/31/17 07:51 [place] % (Auto) 6.8 % (0.0-10.0) 07/31/17 07:51 Eos % (Auto) 5.4 % (0.0-4.0) H 07/31/17 07:51 Baso % (Auto) 1.6 % (0.0-2.0) 07/31/17 07:51 Neut # 3.9 K/uL (1.8-7.0) 07/31/17 07:51 Lymph # 2.8 K/uL (1.0-4.3) 07/31/17 07:51 [place] # 0.5 K/uL (0.0-0.8) 07/31/17 07:51 Eos # 0.4 K/uL (0.0-0.7) 07/31/17 07:51 Baso # 0.1 K/uL (0.0-0.2) 07/31/17 07:51 APTT 22 SECONDS (21-34) 07/31/17 11:36 Sodium 139 mmol/L (132-148) 07/31/17 01:41 Potassium 3.0 mmol/L (3.6-5.2) L 07/31/17 01:41 Chloride 103 mmol/L (98-107) 07/31/17 01:41 Carbon Dioxide 28 mmol/L (22-30) 07/31/17 01:41 Anion Gap 11 (10-20) 07/31/17 01:41 BUN 13 mg/dL (7-17) 07/31/17 01:41 Creatinine 0.8 mg/dL (0.7-1.2) 07/31/17 01:41 Est GFR ( Amer) > 60 07/31/17 01:41 Est GFR (Non-Af Amer) > 60 07/31/17 01:41 POC Glucose (mg/dL) 117 mg/dL (65-110) H 07/31/17 11:23 Random Glucose 96 mg/dL (65-105) 07/31/17 01:41 Lactic Acid 1.5 mmol/L (0.7-2.1) 07/31/17 11:36 Calcium 8.7 mg/dl (8.6-10.4) 07/31/17 01:41 Total Bilirubin 0.5 mg/dL (0.2-1.3) 07/31/17 01:41 AST 17 U/L (14-36) 07/31/17 01:41 ALT 30 U/L (9-52) 07/31/17 01:41 Alkaline Phosphatase 88 U/L (38-126) 07/31/17 01:41 Total Creatine Kinase 57 U/L (30-135) 07/31/17 07:54 CK-MB (Mass) 0.26 ng/mL (0.0-3.38) 07/31/17 07:54 Troponin I < 0.0120 ng/mL (0.00-0.120) 07/31/17 07:54 NT-Pro-B Natriuret Pep < 11.1 pg/mL (0-900) 07/30/17 18:10 Total Protein 7.0 g/dL (6.3-8.3) 07/31/17 01:41 Albumin 3.7 g/dL (3.5-5.0) 07/31/17 01:41 Globulin 3.4 gm/dL (2.2-3.9) 07/31/17 01:41 Albumin/Globulin Ratio 1.1 (1.0-2.1) 07/31/17 01:41 Triglycerides 97 mg/dL (0-149) 07/31/17 01:20 Cholesterol 165 mg/dL (0-199) 07/31/17 01:20 LDL Cholesterol Direct 95 mg/dL (0-129) 07/31/17 01:20 HDL Cholesterol 31 mg/dL (30-70) 07/31/17 01:20 Lipase 203 U/L (23-300) 07/30/17 18:10 Free T4 1.27 ng/dL (0.78-2.19) 07/31/17 07:51 TSH 3rd Generation 1.42 mIU/L (0.46-4.68) 07/31/17 07:51 - Hospital Course Hospital Course: HPI (As per admission): 56F with PMH of atrial fibrillation with 2 ablations (last in Aug 2016), anxiety , depression, TIA (2007), COPD, HTN, HLD, DM, asthma, osteoarthritis, and gastritis, who presents to the ED complaining of substernal sharp, 10/10 chest pain that started yesterday when she woke up accompanied by palpitations, SOB and dizziness. Patient says today she woke up with generalized 10/10 stomach pain, nausea, and vomiting x1 of undigested food. she says the abdominal pain and chest pain are worse when she eats but nothing makes it better. She says all she had to eat today was toast and juice which was after the pain started. She also admits to mild generalized headache occasional sweats, and sick contacts (grandchildren). She denies fever, changes in vision/hearing, numbness , sore throat, cough, diarrhea, constipation, hematemesis, hematochezia, melena , hematuria, dysuria, leg pain, swelling, rashes, easy bruising, an recent travel. Hospital Course: Patient was admitted with the diagnosis of chest pain. Patient's greige goods marker, Dr. Lynn was consulted, who saw the patient and stated that patient has normal coronary arteries and does not have to stay in the hospital for a cardiac reason. Chest pain is reproducible with palpation. Furthermore, as per conversation between hospitalist service and Dr. Robertson, patient should follow up outpatient work up for abdominal pain. Patient was discharge upon clearance by the medical team with appropriate discharge instructions and medications. Pertinent imaging and labs: EKG: Sinus tachycardia with premature atrial complexes. Chest XR: No focal consolidation, significant pleural effusion, or definite pneumothorax identified. ANGELIKA: Negative x3, TSH: 1.42, Free T4: 1.27, HgbA1C (06/27/17), Lipid panel: T, Chol: 165, LDL: 95 and HDL: 31 CT abdomen/pelvis (01/20/17): No evidence of acute issues, Prior cholecystectomy ; no acute solid visceral abnormality; mild ileus, no obstruction, no CT findings of appendicitis or diverticulitis This is a brief summary of the patients hospital course. Please review EMR for full record. Discharge Exam - Head Exam Head Exam: ATRAUMATIC - Eye Exam Eye Exam: EOMI - ENT Exam ENT Exam: Mucous Membranes Moist - Respiratory Exam Respiratory Exam: Clear to PA & Lateral, NORMAL BREATHING PATTERN - Cardiovascular Exam Cardiovascular Exam: REGULAR RHYTHM, +S1, +S2 - GI/Abdominal Exam GI & Abdominal Exam: Normal Bowel Sounds, Soft - Extremities Exam Extremities exam: normal inspection - Neurological Exam Neurological exam: Alert, Oriented x3 - Psychiatric Exam Psychiatric exam: Anxious - Skin Skin Exam: Normal Color Discharge Plan - Discharge Medications Prescriptions: Metoprolol Tartrate [Lopressor] 25 mg PO BID 30 Days #60 tab - Follow Up Plan Condition: FAIR Disposition: HOME/ ROUTINE Instructions: Metoprolol (By mouth), Heart Failure (DC), Chest Pain (DC), Heart Healthy Diet (DC) Additional Instructions: Please discharge patient home as per Dr. Gomez, Dr. Robertson and Dr. Lynn Please continue all your home medications as prescribed by your PMD and Dr. Lynn Please follow up with your PMD, Dr. Robertson within a week Please follow up with your greige goods marker, Dr. Lynn within a week Please return to the hospital or ED if symptoms worsen or resume Referrals: Harjit Lynn MD [Staff Provider] - Conner Robertson MD [Staff Provider] -
--- NOTE | 2017-07-31 17:25 | CARD ---
APPROVED REPORT EXAM: Two-dimensional and M-mode echocardiogram with Doppler and color Doppler. Other Information Quality : GoodRhythm : INDICATION Atrial Fibrillation Chest Pain RISK FACTORS Hypertension Diabetes 2D DIMENSIONS IVSd0.8 (0.7-1.1cm)LVDd4.3 (3.9-5.9cm) PWd0.8 (0.7-1.1cm)LVDs2.6 (2.5-4.0cm) FS (%) 39.6 %LVEF (%)70.4 (>50%) M-Mode DIMENSIONS Left Atrium (MM)4.14 (2.5-4.0cm)Aortic Root3.22 (2.2-3.7cm) Aortic Cusp Exc.2.13 (1.5-2.0cm) Mitral Valve MV E Uspfszwo20.0cm/sMV A Hxnkkgng12.6cm/sE/A ratio1.2 TDI E/Lateral E'0.0E/Medial E'0.0 Tricuspid Valve TR Peak Qdiqodqe654uj/sTR Peak Gr.[id number] LEFT VENTRICLE The left ventricle is normal size. There is normal left ventricular wall thickness. The left ventricular systolic function is normal. The left ventricular ejection fraction is within the normal range. There is normal LV segmental wall motion. The left ventricular diastolic function is normal. RIGHT VENTRICLE The right ventricle is normal size. The right ventricular systolic function is normal. ATRIA The left atrium size is normal. The right atrium size is normal. AORTIC VALVE The aortic valve is normal in structure. No aortic regurgitation is present. MITRAL VALVE The mitral valve is normal in structure. There is no mitral valve regurgitation noted. TRICUSPID VALVE The tricuspid valve is normal in structure. There is trace tricuspid regurgitation. Right ventricular systolic pressure is estimated at less than 30 mmHg. PULMONIC VALVE The pulmonary valve is normal in structure. GREAT VESSELS The aortic root is normal in size. The IVC is normal in size and collapses >50% with inspiration. PERICARDIAL EFFUSION There is no pericardial effusion. <Conclusion> Normal bi-ventricular function. No valvular abnormality. No pericardial effusion.
--- NOTE | 2017-08-01 22:49 | CARD ---
APPROVED REPORT EKG Measurement Heart [id number] [place] 162P28 [id number] <Conclusion> Sinus tachycardia with premature atrial complexes ST & T wave abnormality, consider inferior ischemia but, still nonspecific Abnormal ECG
--- NOTE | 2017-08-04 00:48 | CARD ---
APPROVED REPORT EKG Measurement Heart [id number] [place] 164P36 [id number] <Conclusion> Normal sinus rhythm Normal ECG
--- NOTE | 2017-08-04 00:48 | CARD ---
APPROVED REPORT EKG Measurement Heart [id number] [place] 146P21 [id number] <Conclusion> Sinus bradycardia Otherwise normal ECG
--- NOTE | 2017-08-04 00:48 | CARD ---
APPROVED REPORT EKG Measurement Heart [id number] [place] 170P16 [id number] <Conclusion> Sinus bradycardia Otherwise normal ECG
== END 2017-07-31 15:56 | disposition home or self-care (01) ==
LOC: C.ER 17:19 → C.9E 20:59 → C.6T 22:46
PROVIDERS: ADMIT Family Medicine; ATTEND Family Medicine
DX: R07.9 Chest pain, unspecified (principal); I48.91 Unspecified atrial fibrillation; I11.0 Hypertensive heart disease with heart failure; E78.5 Hyperlipidemia, unspecified; E10.9 Type 1 diabetes mellitus without complications; E78.00 Pure hypercholesterolemia, unspecified; J44.9 Chronic obstructive pulmonary disease, unspecified; F41.9 Anxiety disorder, unspecified; I25.10 Atherosclerotic heart disease of native coronary artery without angina pectoris; I50.9 Heart failure, unspecified; Z79.4 Long term (current) use of insulin; Z79.82 Long term (current) use of aspirin; Z79.899 Other long term (current) drug therapy; Z86.73 Personal history of transient ischemic attack (TIA), and cerebral infarction without residual deficits; Z90.49 Acquired absence of other specified parts of digestive tract; Z95.5 Presence of coronary angioplasty implant and graft; Z87.891 Personal history of nicotine dependence
CPT/HCPCS: 36415; 71010; 80053; 80061; 82550; 82948; 83605; 83690; 83880; 84439; 84443; 84484; 85025; 85730; 93005; 93306; 99285; G0378; J1644; J2405

== ENCOUNTER 2017-08-03 13:24 | Emergency (ER) | payer MEDICARE, MEDICAID ==
[2017-08-03 13:25] VITALS: BMI 36.0
[2017-08-03 13:34] VITALS: TEMP 97.7
--- NOTE | 2017-08-03 14:38 | C.PDOC ---
History Of Present Illness 56 year old female with no significant PMHx presents to the ED with complaints of vague chest discomfort beginning today. Patient notes chest discomfort occurs with anxiety and is reproducible with digits. Patient was recently admitted to hospital from 07/29/17-07/31/17 and had a normal work up and negative cardiac evaluation. Patient had negative abdomen pelvis CT as well. Patient denies fever, chills, shortness of breath, weakness, numbness, or other complaints at this time. Time Seen by Provider: 08/03/17 14:19 Chief Complaint (Nursing): Chest Pain History Per: Patient History/Exam Limitations: no limitations Onset/Duration Of Symptoms: Hrs Current Symptoms Are (Timing): Still Present Quality: Other (vague discomfort) Associated Symptoms: denies: Nausea, Dyspnea, Diaphoresis, Syncope Modifying Factors: None Exacerbating Factors: None Alleviating Factors: None Recent travel outside of the [place]: No Past Medical History Reviewed: Historical Data, Nursing Documentation, Vital Signs Vital Signs: Last Vital Signs Temp 97.7 F 08/03/17 13:30 Pulse 69 08/03/17 14:27 Resp 22 08/03/17 13:30 BP 109/76 08/03/17 13:30 Pulse Ox 100 08/03/17 14:44 - Medical History PMH: Anxiety, Arthritis (hands), Atrial Fibrillation, CAD, Cardia Arrhythmia, CHF, COPD, Depression, Diabetes (hypoglycemia), Gastritis, Gall Bladder Disease , HTN, Hypercholesterolemia Denies: Chronic Kidney Disease Surgical History: Cholecystectomy, Coronary Stent (x2) Family History: States: Unknown Family Hx - Social History Hx Tobacco Use: Yes (QUIT) Hx Alcohol Use: No Hx Substance Use: No - Immunization History Hx Tetanus Toxoid Vaccination: No Hx Influenza Vaccination: No Hx Pneumococcal Vaccination: No Review Of Systems Constitutional: Negative for: Fever, Chills Cardiovascular: Positive for: Other (vague chest discomfort ). Negative for: Palpitations Respiratory: Negative for: Cough, Shortness of Breath Gastrointestinal: Negative for: Nausea, Vomiting, Abdominal Pain Psych: Positive for: Anxiety Physical Exam - Physical Exam Appears: Non-toxic, No Acute Distress, Other (obese black female) Skin: Warm, Dry, No Rash Head: Atraumatic, Normacephalic, No Tenderness Eye(s): bilateral: Normal Inspection, PERRL, EOMI Oral Mucosa: Moist Neck: Supple Chest: Symmetrical, No Deformity, Other (digitally reproducible chest pain ) Cardiovascular: Rhythm Regular, No Murmur Respiratory: No Rales, No Rhonchi, No Wheezing, Other (clear to auscultation bilaterally =) Gastrointestinal/Abdominal: Soft, No Tenderness, No Distention, No Guarding, No Rebound Extremity: Normal ROM, No Tenderness Neurological/Psych: Oriented x3 ED Course And Treatment ECG: Interpreted By Me, Viewed By Me ECG Rhythm: Sinus Rhythm ECG Interpretation: Normal Rate From EC O2 Sat by Pulse Oximetry: 100 (RA) Pulse Ox Interpretation: Normal Progress Note: EKG was ordered. Medical Decision Making Medical Decision Making: digitally reproducable anterior chest wall dicomfort, normal cardiac workup, echo, cardiac eval, and abd CT earlier this week Strong suggestion of anxiety vs anterior chest wall discomfort. LOW susp of ACS Disposition Doctor Will See Patient In The: Office Counseled Patient/Family Regarding: Studies Performed, Diagnosis - Disposition Referrals: [facility] [Outside] [facility] [Outside] [facility] [Outside] Harjit Lynn MD [Staff Provider] - Disposition: HOME/ ROUTINE Disposition Time: 14:44 Condition: GOOD Additional Instructions: continue motrin for your anterior chest wall discomfort- it is NOT Cardiac in nature. Your cardiac workup is normal today Follow-up with outpatient Family Practice Clinic and outpatient Psychiatry as needed. Instructions: Costochondritis (ED), Anxiety (ED) Forms: [facility] [facility] (Botswanan) - Clinical Impression Clinical Impression: Chest discomfort, Anxiety - Scribe Statement The provider has reviewed the documentation as recorded by the Scribjeevan Doherty All medical record entries made by the Scribe were at my direction and personally dictated by me. I have reviewed the chart and agree that the record accurately reflects my personal performance of the history, physical exam, medical decision making, and the department course for this patient. I have also personally directed, reviewed, and agree with the discharge instructions and disposition.
[2017-08-03 15:32] VITALS: BP 112/75; PULSE 72; RESP 18; O2SAT 98
--- NOTE | 2017-08-04 21:02 | CARD ---
APPROVED REPORT EKG Measurement Heart [id number] [place] 156P29 [id number] <Conclusion> Normal sinus rhythm Normal ECG
== END 2017-08-03 15:44 | disposition home or self-care (01) ==
LOC: C.ER 13:24
DX: R07.9 Chest pain, unspecified (principal); F41.9 Anxiety disorder, unspecified; I10 Essential (primary) hypertension

== ENCOUNTER 2017-08-04 14:52 | Emergency (ER) | payer MEDICARE, MEDICAID ==
[2017-08-04 14:57] VITALS: BMI 41.5
[2017-08-04 15:02] VITALS: RESP 18
[2017-08-04] MEDS ORDERED: Sodium Chloride 0.9% 500 ML IV ONE (16:25)
--- NOTE | 2017-08-04 16:36 | C.PDOC ---
History Of Present Illness 56 yr old female with PMHx of AFib, COPD, HTN and diabetes, presents to the ER with complaints of chest pain and abdominal pain for the past few months. Patient denies fever, chills, nausea, vomiting, weakness or numbness. Patient seen multiple times in the ED, including yesterday. Patient with recent normal echo, EKG . Time Seen by Provider: 08/04/17 15:38 Chief Complaint (Nursing): Palpitations History Per: Patient History/Exam Limitations: no limitations Onset/Duration Of Symptoms: Days (Months) Past Medical History Reviewed: Historical Data, Nursing Documentation, Vital Signs Vital Signs: Last Vital Signs Temp 97.7 F 08/04/17 14:59 Pulse 82 08/04/17 14:59 Resp 18 08/04/17 14:59 BP 113/77 08/04/17 14:59 Pulse Ox 98 08/04/17 16:41 - Medical History PMH: Anxiety, Arthritis (hands), Atrial Fibrillation, CAD, Cardia Arrhythmia, CHF, COPD, Depression, Diabetes (hypoglycemia), Gastritis, Gall Bladder Disease , HTN, Hypercholesterolemia Surgical History: Cholecystectomy, Coronary Stent (x2) Family History: States: No Known Family Hx - Social History Hx Tobacco Use: Yes (QUIT) Hx Alcohol Use: No Hx Substance Use: No - Immunization History Hx Tetanus Toxoid Vaccination: No Hx Influenza Vaccination: No Hx Pneumococcal Vaccination: No Review Of Systems Except As Marked, All Systems Reviewed And Found Negative. Constitutional: Negative for: Fever, Chills Cardiovascular: Positive for: Chest Pain Gastrointestinal: Positive for: Abdominal Pain. Negative for: Nausea, Vomiting Neurological: Negative for: Weakness, Numbness Physical Exam - Physical Exam Appears: Non-toxic, No Acute Distress Skin: Warm, Dry, No Rash Head: Atraumatic, Normacephalic Cardiovascular: Rhythm Regular, No Murmur Respiratory: Normal Breath Sounds, No Rales, No Rhonchi, No Stridor, No Wheezing Extremity: Normal ROM, No Swelling Neurological/Psych: Oriented x3, Normal Speech, Normal Motor ED Course And Treatment O2 Sat by Pulse Oximetry: 98 (RA) Pulse Ox Interpretation: Normal - CT Scan/US CT - Abd & Pelvis Other Rad Studies (CT/US): Read By Radiologist, Radiology Report Reviewed Medical Decision Making Medical Decision Making: PLAN: * EKG * Troponin * CBC * CMP * HCG * Urinalysis * Toradol IVP * Sodium Chloride IV Spoke with DR. Lynn yesterday and today, no need for further cardiac work up. Spoke with Dr. Baugh , will f/u with patient next week. Patient intermittently tearful. VS stable. Disposition Discussed With Dr.: Luanne Michael Counseled Patient/Family Regarding: Diagnosis, Need For Followup - Disposition Disposition: HOME/ ROUTINE Disposition Time: 17:06 Condition: STABLE Instructions: Anxiety (ED) Forms: [facility] [facility] (Slovenian), General Discharge Instructions - Clinical Impression Clinical Impression: Chest pain, Anxiety - Scribe Statement The provider has reviewed the documentation as recorded by the Manjulaibjeevan Chu Provider Attestation: All medical record entries made by the Manjulaibjeevan were at my direction and personally dictated by me. I have reviewed the chart and agree that the record accurately reflects my personal performance of the history, physical exam, medical decision making, and the department course for this patient. I have also personally directed, reviewed, and agree with the discharge instructions and disposition.
[2017-08-04] MEDS ORDERED: Sodium Chloride 0.9% 1,000 ML ONE (16:39)
[2017-08-04 16:54] LABS: RBC URINE 2 /hpf (0-3); URINE BACTERIA RARE (<OCC); URINE BILIRUBIN NEGATIVE (NEGATIVE); URINE BLOOD NEGATIVE (NEGATIVE); URINE COLOR Yellow (YELLOW); URINE GLUCOSE (UA) NORMAL (Normal); URINE KETONE TRACE mg/dL (NEGATIVE); URINE LEUKOCYTE ESTERASE 1+ Leu/uL (Negative); URINE PROTEIN 1+ mg/dL (NEGATIVE); WBC URINE 7 /hpf (0-5)
[2017-08-04 17:32] VITALS: BP 116/72; PULSE 88; TEMP 98; O2SAT 99
--- NOTE | 2017-08-04 20:45 | CARD ---
APPROVED REPORT EKG Measurement Heart [id number] [place] 162P34 [id number] <Conclusion> Normal sinus rhythm with sinus arrhythmia Normal ECG
== END 2017-08-04 17:33 | disposition home or self-care (01) ==
LOC: C.ER 14:52
DX: R07.9 Chest pain, unspecified (principal); F41.9 Anxiety disorder, unspecified
CPT/HCPCS: 81001; 84703; 93005; 99283; G0480

== ENCOUNTER 2017-09-30 19:42 | Inpatient (IN) | payer MEDICARE, MEDICAID ==
[2017-09-30 19:43] VITALS: BMI 41.5
[2017-09-30 21:15] LABS: BASO # 0.1 K/uL (0.0-0.2); BASO % 0.9 % (0.0-2.0); EOS # 0.1 K/uL (0.0-0.7); EOS % 1.5 % (0.0-4.0); HEMOGLOBIN 11.9 g/dL (11.0-16.0); LYMPH # 1.2 K/uL (1.0-4.3); MEAN CELL VOLUME 78.3 fL (81.0-99.0); MEAN CORPUSCULAR HEMOGLOBIN 25.9 pg (27.0-31.0); MEAN CORPUSCULAR HGB CONC 33.1 g/dL (33.0-37.0); MONO # 0.6 K/uL (0.0-0.8); MONO % 9.1 % (0.0-10.0); NEUT # 4.6 K/uL (1.8-7.0); NEUT % 70.5 % (50.0-75.0); NRBC % 0.2 % (0.0-2.0); RBC 4.61 Mil/uL (3.80-5.20); RED CELL DISTRIBUTION WIDTH 15.1 % (11.5-14.5); WHITE BLOOD COUNT 6.5 K/uL (4.8-10.8)
[2017-09-30 21:21] LABS: INR 1.2; PROTHROMBIN TIME 13.2 SECONDS (9.7-12.2)
[2017-09-30 21:24] LABS: GFR AFRICAN-AMERICAN > 60; GFR NON-AFRICAN AMERICAN > 60
[2017-09-30 21:27] LABS: ALBUMIN 4.4 g/dL (3.5-5.0); ALT/SGPT 14 U/L (9-52); AST/SGOT 44 U/L (14-36); BLOOD UREA NITROGEN 12 mg/dL (7-17)
--- NOTE | 2017-09-30 22:30 | C.PDOC ---
History Of Present Illness Patient is a 57 y/o female with a past medical history of atrial fibrillation, SVT, cardiac ablations, and abnormal stress tests in the past, who presents complaining of chest pain and abdominal pain, both of which are chronic and ongoing. Patient has had multiple admissions over the past year for similar symptoms without any relief. States she has been following up with a medical delivery technician. Currently patient complains of difficulty breathing, dizziness, lightheadedness, palpitations, and abdominal pain with a feeling as if she cannot eat. Also has a history of reflux, no endoscopy. Denies associated fever , vomiting, or diarrhea. Time Seen by Provider: 09/30/17 20:59 Chief Complaint (Nursing): Chest Pain History Per: Patient History/Exam Limitations: no limitations Onset/Duration Of Symptoms: Days Current Symptoms Are (Timing): Still Present Past Medical History Reviewed: Historical Data, Nursing Documentation, Vital Signs Vital Signs: Last Vital Signs Temp 98.5 F 09/30/17 19:54 Pulse 112 H 09/30/17 19:54 Resp 20 09/30/17 19:54 BP 114/64 09/30/17 19:54 Pulse Ox 97 09/30/17 22:34 - Medical History PMH: Anxiety, Arthritis (hands), Atrial Fibrillation, CAD, Cardia Arrhythmia, CHF, COPD, Depression, Diabetes (hypoglycemia), Gastritis, Gall Bladder Disease , HTN, Hypercholesterolemia Denies: Chronic Kidney Disease Surgical History: Cholecystectomy, Coronary Stent (x2) Family History: States: Unknown Family Hx - Social History Hx Tobacco Use: Yes (QUIT) Hx Alcohol Use: No Hx Substance Use: No - Immunization History Hx Tetanus Toxoid Vaccination: No Hx Influenza Vaccination: No Hx Pneumococcal Vaccination: No Review Of Systems Except As Marked, All Systems Reviewed And Found Negative. Constitutional: Negative for: Fever, Chills Cardiovascular: Positive for: Chest Pain, Palpitations, Light Headedness Respiratory: Positive for: Shortness of Breath Gastrointestinal: Positive for: Abdominal Pain, Other (Loss of appetite). Negative for: Vomiting, Diarrhea Neurological: Positive for: Dizziness Physical Exam - Physical Exam Appears: Non-toxic, No Acute Distress Skin: Normal Color, Warm, Dry Head: Atraumatic, Normacephalic Eye(s): bilateral: Normal Inspection, PERRL, EOMI Oral Mucosa: Moist Neck: Normal ROM, Supple Chest: Symmetrical Cardiovascular: Rhythm Regular (with tachycardia, 115), No Murmur Respiratory: Normal Breath Sounds, No Accessory Muscle Use, No Wheezing Gastrointestinal/Abdominal: Soft, Tenderness (to the epigastrium), No Guarding, No Rebound Back: Normal Inspection, No Vertebral Tenderness Extremity: Bilateral: Atraumatic, Normal Color And Temperature, Normal ROM Neurological/Psych: Oriented x3, Normal Speech ED Course And Treatment - Laboratory Results Result Diagrams: 09/30/17 21:03 09/30/17 21:03 Lab Interpretation: No Acute Changes ECG: Interpreted By Me ECG Rhythm: Sinus Tachycardia, ST/T Changes (nonspecific) ECG Interpretation: Abnormal O2 Sat by Pulse Oximetry: 97 (RA) Pulse Ox Interpretation: Normal Reevaluation Time: 23:44 Reassessment Condition: Unchanged (Patient continues to c/o palpitations. Monitor showing persistent heart rate of 112-115. she is also nauseated but has not vomited.) - Physician Consult Information Time Consulting Physician Contacted: 23:45 Physician Contacted: Conner Robertson Outcome Of Conversation: Patient to be admitted for evaluation and management of tachycardia and abdominal pain. Medical Decision Making Medical Decision Making: Impression: 57 year old with chest pain and abdominal pain Time: 21:01 Initial Plan: * EKG * CMP * Lipase * Troponin I * CBC * D dimer * PTT * Prothrombin time * Tramadol 50mg PO Disposition - Disposition Disposition: HOSPITALIZED Disposition Time: 23:45 Condition: STABLE - POA Present On Arrival: None - Clinical Impression Clinical Impression: Sinus tachycardia, Abdominal pain - Scribe Statement The provider has reviewed the documentation as recorded by the Scribe (Cathy Thompson) Provider Attestation: All medical record entries made by the Scribe were at my direction and personally dictated by me. I have reviewed the chart and agree that the record accurately reflects my personal performance of the history, physical exam, medical decision making, and the department course for this patient. I have also personally directed, reviewed, and agree with the discharge instructions and disposition.
[2017-10-01] MEDS ORDERED: Oxycodone/Acetaminophen 5/325 mg Tab PO PRN ×2 (00:12→10:37)
[2017-10-01] MEDS ORDERED: Oxycodone/Acetaminophen 5/325 mg Tab ONE (00:23)
[2017-10-01] MEDS ORDERED: Albuterol HFA 90 mcg/actuation (8 g) INH PRN (00:47)
[2017-10-01] MEDS ORDERED: HYDROCHLOROTHIAZID PO PRN (00:48)
[2017-10-01] MEDS ORDERED: TELMISARTAN PO PRN (00:48)
[2017-10-01] MEDS ORDERED: Home Med 1 UNIT (Omeprazole [Omeprazole] 20 MG) PO SCH (10:00)
[2017-10-01] MEDS: POLYETHYLENE GLYCOL 3350 17 GM/Dose PACKET PO SCH ×3 (10:15→17:55)
[2017-10-01] MEDS: Pantoprazole 40 mg EC Tab PO SCH (10:59)
[2017-10-01] MEDS: Enoxaparin 40 mg Syringe SC SCH (10:59)
[2017-10-01] MEDS: Simethicone 80 mg Chewtab PO SCH ×3 (10:59→17:54)
[2017-10-01] MEDS ORDERED: Ammonium Lactate 12% Lotion (225 g) EXT PRN (15:09)
--- NOTE | 2017-10-01 18:31 | CP.PCM.HP ---
Past Patient History - Infectious Disease Hx of Infectious Diseases: None - Tetanus Immunizations Tetanus Immunization: Unknown - Past Medical History & Family History Past Medical History?: Yes - Past Social History Smoking Status: Former Smoker - CARDIAC Hx Atrial Fibrillation: Yes Hx Cardia Arrhythmia: Yes Hx Congestive Heart Failure: Yes Hx Hypercholesterolemia: Yes Hx Hypertension: Yes Other/Comment: coronary artery disease - PULMONARY Hx Chronic Obstructive Pulmonary Disease (COPD): Yes - NEUROLOGICAL Hx Neurological Disorder: Yes HX Cerebrovascular Accident: Yes Hx Dizziness: Yes - HEENT Hx HEENT Problems: Yes Other/Comment: wears glasses for reading - RENAL Hx Chronic Kidney Disease: No - ENDOCRINE/METABOLIC Hx Endocrine Disorders: Yes Hx Diabetes Mellitus Type 1: Yes - HEMATOLOGICAL/ONCOLOGICAL Hx Blood Disorders: No - INTEGUMENTARY Hx Dermatological Problems: Yes Hx Eczema: Yes - MUSCULOSKELETAL/RHEUMATOLOGICAL Hx Falls: Yes - GASTROINTESTINAL Hx Gall Bladder Disease: Yes Hx Gastritis: Yes Hx Gastroesophageal Reflux: Yes - GENITOURINARY/GYNECOLOGICAL Hx Genitourinary Disorders: No - PSYCHIATRIC Hx Anxiety: Yes Hx Depression: Yes Hx Substance Use: No - SURGICAL HISTORY Hx Cardiac Catheterization: Yes Hx Cholecystectomy: Yes Hx Tubal Ligation: Yes Other/Comment: ablation - ANESTHESIA Hx Anesthesia: Yes Hx Anesthesia Reactions: No Meds Allergies/Adverse Reactions: Allergies Allergy/AdvReac Type Severity Reaction Status Date / Time escitalopram [From Lexapro] AdvReac ANAPHYLAXIS Verified 08/10/17 16:23 Flu vaccine Allergy ANAPHYLAXIS Uncoded 08/10/17 16:23 pnuemonia vaccine Allergy ANAPHYLAXIS Uncoded 08/10/17 16:23 wool Allergy ANAPHYLAXIS Uncoded 08/10/17 16:23 Results - Vital Signs Recent Vital Signs: Last Vital Signs Temp 97.6 F 10/01/17 15:22 Pulse 85 10/01/17 15:30 Resp 18 10/01/17 15:22 BP 98/66 L 10/01/17 15:22 Pulse Ox 97 10/01/17 15:22 - Labs Result Diagrams: 09/30/17 21:03 09/30/17 21:03 Labs: Laboratory Results - last 24 hr 09/30/17 09/30/17 09/30/17 20:34 21:03 21:03 WBC 6.5 RBC 4.61 Hgb 11.9 Hct 36.1 MCV 78.3 L MCH 25.9 L MCHC 33.1 RDW 15.1 H Plt Count 258 MPV 9.0 Neut % (Auto) 70.5 Lymph % (Auto) 18.0 L [place] % (Auto) 9.1 Eos % (Auto) 1.5 Baso % (Auto) 0.9 Neut # (Auto) 4.6 Lymph # (Auto) 1.2 [place] # (Auto) 0.6 Eos # (Auto) 0.1 Baso # (Auto) 0.1 PT INR APTT D-Dimer, Quantitative Sodium 134 Potassium 4.7 Chloride 98 Carbon Dioxide 24 Anion Gap 16 BUN 12 Creatinine 0.7 Est GFR ( Amer) > 60 Est GFR (Non-Af Amer) > 60 POC Glucose (mg/dL) 113 H Random Glucose 101 Calcium 9.0 Total Bilirubin 1.5 H AST 44 H D ALT 14 Alkaline Phosphatase 90 Troponin I 0.0120 Total Protein 8.8 H Albumin 4.4 Globulin 4.4 H Albumin/Globulin Ratio 1.0 Lipase 09/30/17 09/30/17 09/30/17 21:03 21:34 22:04 WBC RBC Hgb Hct MCV MCH MCHC RDW Plt Count MPV Neut % (Auto) Lymph % (Auto) [place] % (Auto) Eos % (Auto) Baso % (Auto) Neut # (Auto) Lymph # (Auto) [place] # (Auto) Eos # (Auto) Baso # (Auto) PT 13.2 H INR 1.2 APTT 20 L D-Dimer, Quantitative 268 H Sodium Potassium Chloride Carbon Dioxide Anion Gap BUN Creatinine Est GFR ( Amer) Est GFR (Non-Af Amer) POC Glucose (mg/dL) Random Glucose Calcium Total Bilirubin AST ALT Alkaline Phosphatase Troponin I Total Protein Albumin Globulin Albumin/Globulin Ratio Lipase 163 10/01/17 10/01/17 10/01/17 07:30 11:09 17:03 WBC RBC Hgb Hct MCV MCH MCHC RDW Plt Count MPV Neut % (Auto) Lymph % (Auto) [place] % (Auto) Eos % (Auto) Baso % (Auto) Neut # (Auto) Lymph # (Auto) [place] # (Auto) Eos # (Auto) Baso # (Auto) PT INR APTT D-Dimer, Quantitative Sodium Potassium Chloride Carbon Dioxide Anion Gap BUN Creatinine Est GFR ( Amer) Est GFR (Non-Af Amer) POC Glucose (mg/dL) 90 88 97 Random Glucose Calcium Total Bilirubin AST ALT Alkaline Phosphatase Troponin I Total Protein Albumin Globulin Albumin/Globulin Ratio Lipase
[2017-10-01] MEDS ORDERED: Promethazine 12.5 mg/10 ml Syrup PO PRN (18:33)
[2017-10-01] MEDS: Promethazine 12.5 mg/10 ml Syrup PO PRN (21:25)
--- NOTE | 2017-10-02 04:04 | CON ---
DATE: CARDIOLOGY CONSULTATION REASON FOR CONSULTATION: Shortness of breath, palpitations, and lightheadedness. HISTORY OF PRESENT ILLNESS: The patient is a 57-year-old female, who has a history of SVT and questionable history of atrial fibrillation. The patient states that she underwent ablation twice at [facility], the last one was a year ago. The patient states that she underwent cardiac catheterization and required no intervention at that time. The patient states she was switched recently from Lopressor to Inderal. The patient presented because of palpitations and dizziness. According to ER evaluation, the patient was in sinus tachycardia. The initial EKG revealed sinus tachycardia at a rate of 113. There is no documented either SVT or atrial fibrillation in the [employer] database for this admission. The patient's most recent cardiac catheterization is negative, database was from 10/[address] Charles Adkins and it revealed unremarkable coronary arteries with normal left ventricular systolic function. SOCIAL HISTORY: Nonsmoker. PAST MEDICAL HISTORY: Hypertension, diabetes mellitus. MEDICATIONS: Colace 100 mg t.i.d., aspirin 81 mg once a day, clonazepam 1 mg t.i.d., Lovenox 40 mg subcutaneously daily, hydrochlorothiazide 12.5 mg daily, Phenergan syrup one teaspoonful q.6 hours, Protonix 40 mg twice a day, Ultram 50 mg q.6 hours p.r.n., albuterol inhaler q.6 hours p.r.n. PHYSICAL EXAMINATION: GENERAL: The patient is a middle-aged female, not appear to be in any acute distress at this time. VITAL SIGNS: Blood pressure 100/63, heart rate 81, temperature 98.2, respirations 20. HEENT: Normocephalic. CHEST: Bilateral rhonchi. HEART: S1 and S2 regular. ABDOMEN: Soft. EXTREMITIES: No edema. LABORATORY DATA: SMA-7 on admission was within normal limits. Total bilirubin slightly elevated at 1.5. Lipase is within normal limits. Troponin is within normal limits. D-dimer is elevated to 168. Hemoglobin, hematocrit, white count and platelet count are within normal limits. EKG revealed sinus tachycardia, rate of 113, with nonspecific anterior ST-T wave changes. Echocardiographic study performed in 07/2017, i.e., two months ago revealed normal biventricular function and no valvular abnormality, no pericardial effusion. ASSESSMENT: 1. Sinus tachycardia. 2. History of supraventricular tachycardia and atrial fibrillation. 3. Hypertension and diabetes mellitus. RECOMMENDATIONS: Continue current Cozaar 50 mg once a day, aspirin 81 mg once a day, metformin 500 mg twice a day, Lovenox 40 mg subcutaneously once a day. If there is any documentation of atrial fibrillation in the past, then anticoagulation will be considered. The most recent Holter monitor from 10/2016 reported sinus rhythm with a minimum heart rate of 50 and maximum heart rate of 114 with APCs. I will obtain TSH level. David Martin MD
[2017-10-02] MEDS: Enoxaparin 40 mg Syringe SC SCH (10:43)
[2017-10-02] MEDS: Simethicone 80 mg Chewtab PO SCH ×3 (10:45→18:37)
[2017-10-02] MEDS: Pantoprazole 40 mg EC Tab PO SCH (10:45)
[2017-10-02] MEDS: POLYETHYLENE GLYCOL 3350 17 GM/Dose PACKET PO SCH ×2 (10:52→18:36)
[2017-10-02] MEDS: Promethazine 12.5 mg/10 ml Syrup PO PRN ×2 (11:16→18:40)
--- NOTE | 2017-10-02 12:29 | CP.PCM.PN ---
Subjective - Date & Time of Evaluation Date of Evaluation: 10/02/17 Time of Evaluation: 12:29 Objective - Vital Signs/Intake and Output Vital Signs (last 24 hours): Temp Pulse Resp BP Pulse Ox 98.3 F 85 20 108/74 97 10/02/17 07:35 10/02/17 10:50 10/02/17 07:35 10/02/17 10:50 10/02/17 07:35 - Medications Medications: Current Medications Albuterol (Ventolin Hfa 90 Mcg/Actuation (8 G)) 1 puff INH RQ6 PRN PRN Reason: Shortness of Breath Aspirin (Ecotrin) 81 mg PO DAILY [facility] Last Admin: 10/02/17 10:45 Dose: 81 mg Clonazepam (Klonopin) 1 mg PO TID [facility] Last Admin: 10/02/17 10:46 Dose: 1 mg Docusate Sodium (Colace) 100 mg PO TID [facility] Last Admin: 10/02/17 10:45 Dose: 100 mg Enoxaparin Sodium (Lovenox) 40 mg SC DAILY [facility] Last Admin: 10/02/17 10:43 Dose: 40 mg Hydrochlorothiazide (Microzide) 12.5 mg PO DAILY [facility] Last Admin: 10/02/17 10:56 Dose: Not Given Lactic Acid (Lac-Hydrin 12% Lotion (225 G)) 1 gm EXT BID PRN PRN Reason: eczema Losartan Potassium (Cozaar) 50 mg PO DAILY [facility] Last Admin: 10/02/17 10:56 Dose: Not Given Metformin HCl (Glucophage) 500 mg PO BID [facility] Last Admin: 10/02/17 10:52 Dose: Not Given Montelukast Sodium (Singulair) 10 mg PO DAILY [facility] Last Admin: 10/02/17 10:43 Dose: 10 mg Oxycodone/Acetaminophen (Percocet 5/325 Mg Tab) 1 tab PO Q6H PRN PRN Reason: Pain, SEVERE (8-10) Stop: 10/04/17 10:38 Pantoprazole Sodium (Protonix Ec Tab) 40 mg PO DAILY [facility] Last Admin: 10/02/17 10:45 Dose: 40 mg Polyethylene Glycol (Miralax) 17 gm PO BID [facility] Last Admin: 10/02/17 10:52 Dose: Not Given Promethazine HCl (Phenergan Syrup) 12.5 mg PO Q6 PRN PRN Reason: Cough Last Admin: 10/02/17 11:16 Dose: 12.5 mg Propranolol HCl (Inderal) 10 mg PO TID [facility] Last Admin: 10/02/17 10:56 Dose: Not Given Simethicone (Mylicon Chew Tab) 80 mg PO TID [facility] Last Admin: 10/02/17 10:45 Dose: 80 mg Tramadol HCl (Ultram) 50 mg PO Q6 PRN PRN Reason: Pain, moderate (4-7) Last Admin: 10/01/17 21:52 Dose: 50 mg - Labs Labs: 09/30/17 21:03 09/30/17 21:03 PT 13.2 SECONDS (9.7-12.2) H 09/30/17 21:03 INR 1.2 09/30/17 21:03 APTT 20 SECONDS (21-34) L 09/30/17 21:03
--- NOTE | 2017-10-02 13:51 | PCM.PSYCH ---
Initial Psychiatric Evaluation - Initial Psychiatric Evaluation Type of Admission: Voluntary Legal Status: Capacity Chief Complaint (in patient's own words): "there is something wrong with my heart" History of Present Illness and Precipitating Events: Patient is a 57 year old female with 5 children and 9 grandchildren. The patient reports that she is doing well and wants someone to figure out what is wrong with my heart. She reports that she is not anxious today stating that her heart was racing, blood pressure went up, and sugar went up yesterday. She reports that this is due to a cardiac issue that no one has been able to figure out. She states that heart heart will start racing and cause her discomfort at any time and has woken her up from sleep before. She has a history of generalized anxiety disorder for which she sees a psychiatrist and takes Clonazepam 1mg three times a day. She was diagnosed 8 years ago and has no history of psychiatric hospitalizations or panic attacks. The patient reports that she is just aggravated that she doesnt know what is happening with hear heart and that they have been trying to play the crazy role on my for a long time. When asked about her history of depression she reports that she does not have depression, she just gets upset about all of her medical issues from time to time, she reports that she is a generally cheerful person who loves to play with my grandchildren. The patient reports that she has stomach issues, wheezing, and it feels like something is sitting on my chest. She denies the use of drugs and alcohol. She reports that she quit smoking years ago. Psych hx: denies Med Hx: TIA, CAD, Cardiac ablation and caths, A-fib, arthritis, cardiac arrhythmia, CHF, COPD, DM, HTN Family Psych Hx - denies The patient is a alert, awake, and oriented x3. She is sitting up in bed and appears well groomed. She makes good eye contact throughout the encounter and responds to questions clearly with appropriate tone. Her thoughts are linear in nature and she has no difficulties communicating. She appears slightly irritable with affect consistent with mood. She is attentive and focused throughout encounter. Current Medications: Active Medications Generic Name Dose Route Start Last Admin Trade Name Freq PRN Reason Stop Dose Admin Albuterol/Ipratropium 3 ml 10/02/17 13:22 Duoneb 3 Mg/0.5 Mg (3 Ml) Ud INH RQ6 PRN Shortness of Breath Aspirin 81 mg 10/01/17 10:00 10/02/17 10:45 Ecotrin PO 81 mg DAILY [facility] Administration Clonazepam 1 mg 10/01/17 00:15 10/02/17 10:46 Klonopin PO 1 mg TID [facility] Administration Docusate Sodium 100 mg 10/01/17 14:00 10/02/17 10:45 Colace PO 100 mg TID [facility] Administration Enoxaparin Sodium 40 mg 10/01/17 10:00 10/02/17 10:43 Lovenox SC 40 mg DAILY [facility] Administration Hydrochlorothiazide 12.5 mg 10/01/17 10:00 10/02/17 10:56 Microzide PO Not Given DAILY [facility] Lactic Acid 1 gm 10/01/17 15:09 Lac-Hydrin 12% Lotion (225 G) EXT BID PRN eczema Losartan Potassium 50 mg 10/01/17 10:45 10/02/17 10:56 Cozaar PO Not Given DAILY [facility] Metformin HCl 500 mg 10/01/17 10:00 10/02/17 10:52 Glucophage PO Not Given BID [facility] Montelukast Sodium 10 mg 10/01/17 10:00 10/02/17 10:43 Singulair PO 10 mg DAILY [facility] Administration Oxycodone/Acetaminophen 1 tab 10/01/17 10:37 Percocet 5/325 Mg Tab PO 10/04/17 10:38 Q6H PRN Pain, SEVERE (8-10) Pantoprazole Sodium 40 mg 10/01/17 10:45 10/02/17 10:45 Protonix Ec Tab PO 40 mg DAILY [facility] Administration Polyethylene Glycol 17 gm 10/01/17 10:00 10/02/17 10:52 Miralax PO Not Given BID [facility] Promethazine HCl 12.5 mg 10/01/17 14:53 10/02/17 11:16 Phenergan Syrup PO 12.5 mg Q6 PRN Administration Cough Propranolol HCl 10 mg 10/01/17 22:33 10/02/17 10:56 Inderal PO Not Given TID [facility] Simethicone 80 mg 10/01/17 10:00 10/02/17 10:45 Mylicon Chew Tab PO 80 mg TID [facility] Administration Tramadol HCl 50 mg 10/01/17 00:13 10/01/17 21:52 Ultram PO 50 mg Q6 PRN Administration Pain, moderate (4-7) Past Psychiatric History - Past Psychiatric History Previous Treatment History: None Pertinent Medical Hx (Current Medical&Sleep Prob, Allergies): Allergies Allergy/AdvReac Type Severity Reaction Status Date / Time escitalopram [From Lexapro] AdvReac ANAPHYLAXIS Verified 08/10/17 16:23 Flu vaccine Allergy ANAPHYLAXIS Uncoded 08/10/17 16:23 pnuemonia vaccine Allergy ANAPHYLAXIS Uncoded 08/10/17 16:23 wool Allergy ANAPHYLAXIS Uncoded 08/10/17 16:23 Albuterol HFA [Ventolin HFA 90 mcg/actuation (8 g)] 2 puff IH [id number] PRN #1 inhaler 10/13/13 Aspirin [Aspir 81] 81 mg PO DAILY 10/13/13 metFORMIN [glucOPHAGE] 500 mg PO PRN PRN 01/10/17 Montelukast [Singulair] 10 mg PO DAILY #30 01/14/17 clonazePAM [Klonopin] 1 mg PO TID tab 01/14/17 Polyethylene Glycol 3350 [Miralax] 17 gm PO BID #20 powd.pack 01/22/17 Colloidal Oatmeal [Eucerin Eczema Relief] 226 gm TP QID PRN 06/02/17 Docusate [Colace] 100 mg PO DAILY 06/02/17 Omeprazole 20 mg PO DAILY 06/02/17 Simethicone [Mylicon Chew Tab] 80 mg PO TID 06/02/17 Telmisartan/Hydrochlorothiazid [Micardis Hct 40-12.5 mg Tablet] 1 tab PO PRN PRN 06/02/17 Metoprolol Tartrate [Lopressor] 25 mg PO BID 30 Days #60 tab 07/31/17 Review of Systems - Cardiovascular Cardiovascular: Chest Pain, Dyspnea, Palpitations, Rapid Heart Rate - Respiratory Respiratory: Cough, Dyspnea, Wheezing - Gastrointestinal Gastrointestinal: Abdominal Pain - Neurological Neurological: UNREMARKABLE - Psychiatric Psychiatric: Irritability. absent: Anxiety, Auditory Hallucinations, Behavioral Changes, Confusion, Depression, Hopelessness, Panic Attacks, Suicidal Ideation, Visual Hallucinations Mental Status Examination - Personal Presentation Personal Presentation: Looks stated age, Dressed appropriate to season - Affect Affect: Broad - Motor Activity Motor Activity: Calm - Reliability in Providing Information Reliability in Providing Information: Good - Speech Speech: Organized - Mood Additional comments: irritable - Formal Thought Process Formal Thought Process: No Impairment - Obsessions/Compulsions Obsessions: None Compulsions: None - Cognitive Functions Orientation: Person, Place, Situation, Time Sensorium: Alert Attention/Concentration: Attentive Abstract Thinking: Albert Estimate of Intelligence: Average Judgement: Intact, as evidence by: Good judgement Memory: Recent intact, as evidence by: Ability to recall events of the day, Remote intact, as evidenced by: Abilit to recall sig. life events - Strength & Assets Inventory Strength & Assets Inventory: Family support, Interests/hobbies, Cooperative DSM 5 DX - DSM 5 DSM 5 Diagnosis: Generalized Anxiety Disorder - Recommended/Plan of Treatment Treatment Recommendations and Plan of Treatment: WILLIAM -Individual therapy daily -Psychoeducation and support daily -Encourage compliance with meds and after care -Teach Healthy lifestyle methods, i.e. diet, exercise, meditation - Continue Clonazepam 1mg PO TID - Start Neurontin
[2017-10-02] MEDS: Albuterol-Ipratrop 3 mg / 0.5 (3 ml) UD INH PRN ×2 (17:06→20:00)
--- NOTE | 2017-10-02 23:06 | PN ---
DATE: SUBJECTIVE: The patient did report palpitation while receiving respiratory nebulizer therapy. She is still experiencing tightness. Blood pressure was borderline low and Cozaar was discontinued. PHYSICAL EXAMINATION: VITAL SIGNS: Blood pressure 105/68, heart rate 85, temperature 98.1, and respirations 20. HEENT: Normocephalic. CHEST: Bilateral rhonchi. HEART: S1 and S2 regular. EXTREMITIES: No edema. LABORATORY DATA: Today's blood sugar is 106 and 94. The patient's reviewed heart monitor is consistent with sinus rhythm. The patient had a psychiatric evaluation by Dr. Rogers today and diagnosed with generalized anxiety disorder. Psychological support daily. Encourage compliance with medications. ASSESSMENT: 1. History of supraventricular tachycardia, status post ablation in the past. 2. Improved sinus tachycardia. 3. Hypertension, diabetes mellitus. 4. Generalized anxiety disorder. CONDITIONS: Continue current bronchodilators. Continue aspirin 81 mg once a day. May discontinue Inderal. Continue Singulair 10 mg once a day, Protonix 40 mg twice a day, Percocet 1 tablet q.6 hours p.r.n., Ultram at 50 mg p.o. q.6 hours p.r.n. David Martin MD
[2017-10-03] MEDS: Albuterol-Ipratrop 3 mg / 0.5 (3 ml) UD INH PRN ×2 (07:33→13:35)
[2017-10-03] MEDS: Enoxaparin 40 mg Syringe SC SCH (09:17)
[2017-10-03] MEDS: POLYETHYLENE GLYCOL 3350 17 GM/Dose PACKET PO SCH ×2 (09:18→18:07)
[2017-10-03] MEDS: Simethicone 80 mg Chewtab PO SCH ×3 (09:19→18:05)
[2017-10-03] MEDS: Pantoprazole 40 mg EC Tab PO SCH (09:19)
[2017-10-03] MEDS: Promethazine 12.5 mg/10 ml Syrup PO PRN ×2 (11:44→18:07)
--- NOTE | 2017-10-03 12:22 | CARD ---
APPROVED REPORT EKG Measurement Heart [id number] <Conclusion> Sinus tachycardia ST & T wave abnormality, consider inferior ischemia Abnormal ECG
--- NOTE | 2017-10-03 17:40 | CP.PCM.PN ---
Subjective - Date & Time of Evaluation Date of Evaluation: 10/03/17 Time of Evaluation: 17:40 Objective - Vital Signs/Intake and Output Vital Signs (last 24 hours): Temp Pulse Resp BP Pulse Ox 98.3 F 89 18 104/70 95 10/03/17 15:30 10/03/17 15:30 10/03/17 15:30 10/03/17 15:30 10/03/17 15:30 Intake and Output: 10/03/17 10/03/17 06:59 18:59 Intake Total 400 400 Balance 400 400 - Medications Medications: Current Medications Acetaminophen (Tylenol 325mg Tab) 650 mg PO Q6 PRN PRN Reason: Headache Last Admin: 10/03/17 11:44 Dose: 650 mg Albuterol/Ipratropium (Duoneb 3 Mg/0.5 Mg (3 Ml) Ud) 3 ml INH RQ6 PRN PRN Reason: Shortness of Breath Last Admin: 10/03/17 13:35 Dose: 3 ml Aspirin (Ecotrin) 81 mg PO DAILY [facility] Last Admin: 10/03/17 09:19 Dose: 81 mg Clonazepam (Klonopin) 1 mg PO TID [facility] Last Admin: 10/03/17 14:54 Dose: 1 mg Docusate Sodium (Colace) 100 mg PO TID [facility] Last Admin: 10/03/17 14:53 Dose: 100 mg Enoxaparin Sodium (Lovenox) 40 mg SC DAILY [facility] Last Admin: 10/03/17 09:17 Dose: 40 mg Fluticasone Propionate (Flonase) 1 spr MARIELENA Q12 [facility] Lactic Acid (Lac-Hydrin 12% Lotion (225 G)) 1 gm EXT BID PRN PRN Reason: eczema Metformin HCl (Glucophage) 500 mg PO BID [facility] Last Admin: 10/03/17 09:18 Dose: Not Given Montelukast Sodium (Singulair) 10 mg PO DAILY [facility] Last Admin: 10/03/17 09:19 Dose: 10 mg Oxycodone/Acetaminophen (Percocet 5/325 Mg Tab) 1 tab PO Q6H PRN PRN Reason: Pain, SEVERE (8-10) Stop: 10/04/17 10:38 Pantoprazole Sodium (Protonix Ec Tab) 40 mg PO DAILY [facility] Last Admin: 10/03/17 09:19 Dose: 40 mg Polyethylene Glycol (Miralax) 17 gm PO BID [facility] Last Admin: 10/03/17 09:18 Dose: Not Given Promethazine HCl (Phenergan Syrup) 12.5 mg PO Q6 PRN PRN Reason: Cough Last Admin: 10/03/17 11:44 Dose: 12.5 mg Propranolol HCl (Inderal) 10 mg PO BID [facility] Last Admin: 10/03/17 09:18 Dose: Not Given Simethicone (Mylicon Chew Tab) 80 mg PO TID [facility] Last Admin: 10/03/17 14:54 Dose: 80 mg Tramadol HCl (Ultram) 50 mg PO Q6 PRN PRN Reason: Pain, moderate (4-7) Last Admin: 10/01/17 21:52 Dose: 50 mg - Labs Labs: 09/30/17 21:03 09/30/17 21:03 PT 13.2 SECONDS (9.7-12.2) H 09/30/17 21:03 INR 1.2 09/30/17 21:03 APTT 20 SECONDS (21-34) L 09/30/17 21:03
[2017-10-03] MEDS: Fluticasone Nasal 50 mcg/Spray NAS SCH (22:33)
[2017-10-04] MEDS: Albuterol-Ipratrop 3 mg / 0.5 (3 ml) UD INH PRN ×2 (07:20→13:27)
[2017-10-04 10:07] VITALS: RESP 20
[2017-10-04] MEDS: Enoxaparin 40 mg Syringe SC SCH (10:35)
[2017-10-04] MEDS: Pantoprazole 40 mg EC Tab PO SCH (10:36)
[2017-10-04] MEDS: Simethicone 80 mg Chewtab PO SCH ×3 (10:36→19:22)
[2017-10-04] MEDS: POLYETHYLENE GLYCOL 3350 17 GM/Dose PACKET PO SCH ×2 (10:36→19:22)
[2017-10-04] MEDS: Fluticasone Nasal 50 mcg/Spray NAS SCH ×2 (10:39→21:08)
[2017-10-04] MEDS: Promethazine 12.5 mg/10 ml Syrup PO PRN ×2 (12:19→19:23)
--- NOTE | 2017-10-04 16:27 | CP.PCM.PN ---
Subjective - Date & Time of Evaluation Date of Evaluation: 10/04/17 Time of Evaluation: 16:26 Objective - Vital Signs/Intake and Output Vital Signs (last 24 hours): Temp Pulse Resp BP Pulse Ox 98.5 F 88 20 108/76 96 10/04/17 13:59 10/04/17 13:59 10/04/17 13:59 10/04/17 13:59 10/04/17 08:00 - Medications Medications: Current Medications Acetaminophen (Tylenol 325mg Tab) 650 mg PO Q6 PRN PRN Reason: Headache Last Admin: 10/03/17 22:28 Dose: 650 mg Albuterol/Ipratropium (Duoneb 3 Mg/0.5 Mg (3 Ml) Ud) 3 ml INH RQ6 PRN PRN Reason: Shortness of Breath Last Admin: 10/04/17 13:27 Dose: 3 ml Aspirin (Ecotrin) 81 mg PO DAILY [facility] Last Admin: 10/04/17 10:36 Dose: 81 mg Azithromycin (Zithromax) 500 mg PO DAILY [facility] Last Admin: 10/04/17 15:31 Dose: 500 mg Clonazepam (Klonopin) 1 mg PO TID [facility] Last Admin: 10/04/17 14:05 Dose: 1 mg Docusate Sodium (Colace) 100 mg PO TID [facility] Last Admin: 10/04/17 14:05 Dose: 100 mg Enoxaparin Sodium (Lovenox) 40 mg SC DAILY [facility] Last Admin: 10/04/17 10:35 Dose: 40 mg Fluticasone Propionate (Flonase) 1 spr MARIELENA Q12 [facility] Last Admin: 10/04/17 10:39 Dose: 1 spr Gabapentin (Neurontin) 300 mg PO BID [facility] Lactic Acid (Lac-Hydrin 12% Lotion (225 G)) 1 gm EXT BID PRN PRN Reason: eczema Metformin HCl (Glucophage) 500 mg PO BID [facility] Last Admin: 10/04/17 10:35 Dose: Not Given Montelukast Sodium (Singulair) 10 mg PO HS [facility] Pantoprazole Sodium (Protonix Ec Tab) 40 mg PO DAILY [facility] Last Admin: 10/04/17 10:36 Dose: 40 mg Polyethylene Glycol (Miralax) 17 gm PO BID [facility] Last Admin: 10/04/17 10:36 Dose: Not Given Promethazine HCl (Phenergan Syrup) 12.5 mg PO Q6 PRN PRN Reason: Cough Last Admin: 10/04/17 12:19 Dose: 12.5 mg Propranolol HCl (Inderal) 10 mg PO BID [facility] Last Admin: 10/04/17 10:36 Dose: 10 mg Simethicone (Mylicon Chew Tab) 80 mg PO TID [facility] Last Admin: 10/04/17 14:05 Dose: 80 mg Tramadol HCl (Ultram) 50 mg PO Q6 PRN PRN Reason: Pain, moderate (4-7) Last Admin: 10/01/17 21:52 Dose: 50 mg - Labs Labs: 09/30/17 21:03 09/30/17 21:03 PT 13.2 SECONDS (9.7-12.2) H 09/30/17 21:03 INR 1.2 09/30/17 21:03 APTT 20 SECONDS (21-34) L 09/30/17 21:03
--- NOTE | 2017-10-04 18:20 | PN ---
DATE: 10/04/2017 SUBJECTIVE: The patient complains of palpitation; however, the fastest heart rate today was 103 and with sinus tachycardia on the monitor. The patient had a temperature of 99.9 yesterday, and the patient had temperature of 99.5 this morning. PHYSICAL EXAMINATION: VITAL SIGNS: Blood pressure 108/76, heart rate 88, temperature 98.5, respirations 20. HEENT: Normocephalic. CHEST: Clear. HEART: S1 and S2 regular. EXTREMITIES: No edema. Stat EKG is noted to be sinus rhythm at a rate of 83. ASSESSMENT: 1. Low-grade fever. 2. Sinus tachycardia which is physiological response to the low grade fever. 3. History of supraventricular tachycardia and atrial fibrillation. The patient had no documented sustained arrhythmia during this admission. RECOMMENDATION: Continue current metformin, Inderal, aspirin, Neurontin, and oral Protonix. David Martin MD
[2017-10-05] MEDS: Pantoprazole 40 mg EC Tab PO SCH (10:46)
[2017-10-05] MEDS: Simethicone 80 mg Chewtab PO SCH ×3 (10:46→17:34)
[2017-10-05] MEDS: Enoxaparin 40 mg Syringe SC SCH (10:47)
[2017-10-05] MEDS: Fluticasone Nasal 50 mcg/Spray NAS SCH (10:47)
[2017-10-05] MEDS: POLYETHYLENE GLYCOL 3350 17 GM/Dose PACKET PO SCH ×2 (10:52→17:37)
--- NOTE | 2017-10-05 14:01 | CP.PCM.DIS ---
Provider - Provider Date of Admission: 09/30/17 23:41 Attending physician: Conner Robertson MD Time Spent in preparation of Discharge (in minutes): 25 Hospital Course - Lab Results Lab Results: Most Recent Lab Values WBC 6.5 K/uL (4.8-10.8) 09/30/17 21:03 RBC 4.61 Mil/uL (3.80-5.20) 09/30/17 21:03 Hgb 11.9 g/dL (11.0-16.0) 09/30/17 21:03 Hct 36.1 % (34.0-47.0) 09/30/17 21:03 MCV 78.3 fL (81.0-99.0) L 09/30/17 21:03 MCH 25.9 pg (27.0-31.0) L 09/30/17 21:03 MCHC 33.1 g/dL (33.0-37.0) 09/30/17 21:03 RDW 15.1 % (11.5-14.5) H 09/30/17 21:03 Plt Count 258 K/uL (130-400) 09/30/17 21:03 MPV 9.0 fL (7.2-11.7) 09/30/17 21:03 Neut % (Auto) 70.5 % (50.0-75.0) 09/30/17 21:03 Lymph % (Auto) 18.0 % (20.0-40.0) L 09/30/17 21:03 [place] % (Auto) 9.1 % (0.0-10.0) 09/30/17 21:03 Eos % (Auto) 1.5 % (0.0-4.0) 09/30/17 21:03 Baso % (Auto) 0.9 % (0.0-2.0) 09/30/17 21:03 Neut # (Auto) 4.6 K/uL (1.8-7.0) 09/30/17 21:03 Lymph # (Auto) 1.2 K/uL (1.0-4.3) 09/30/17 21:03 [place] # (Auto) 0.6 K/uL (0.0-0.8) 09/30/17 21:03 Eos # (Auto) 0.1 K/uL (0.0-0.7) 09/30/17 21:03 Baso # (Auto) 0.1 K/uL (0.0-0.2) 09/30/17 21:03 PT 13.2 SECONDS (9.7-12.2) H 09/30/17 21:03 INR 1.2 09/30/17 21:03 APTT 20 SECONDS (21-34) L 09/30/17 21:03 D-Dimer, Quantitative 268 ng/mlDDU (0-243) H 09/30/17 22:04 Sodium 134 mmol/L (132-148) 09/30/17 21:03 Potassium 4.7 mmol/L (3.6-5.2) 09/30/17 21:03 Chloride 98 mmol/L (98-107) 09/30/17 21:03 Carbon Dioxide 24 mmol/L (22-30) 09/30/17 21:03 Anion Gap 16 (10-20) 09/30/17 21:03 BUN 12 mg/dL (7-17) 09/30/17 21:03 Creatinine 0.7 mg/dL (0.7-1.2) 09/30/17 21:03 Est GFR ( Amer) > 60 09/30/17 21:03 Est GFR (Non-Af Amer) > 60 09/30/17 21:03 POC Glucose (mg/dL) 127 mg/dL (65-110) H 10/05/17 11:37 Random Glucose 101 mg/dL (65-105) 09/30/17 21:03 Calcium 9.0 mg/dl (8.6-10.4) 09/30/17 21:03 Total Bilirubin 1.5 mg/dL (0.2-1.3) H 09/30/17 21:03 AST 44 U/L (14-36) H D 09/30/17 21:03 ALT 14 U/L (9-52) 09/30/17 21:03 Alkaline Phosphatase 90 U/L (38-126) 09/30/17 21:03 Troponin I 0.0120 ng/mL (0.00-0.120) 09/30/17 21:03 Total Protein 8.8 g/dL (6.3-8.3) H 09/30/17 21:03 Albumin 4.4 g/dL (3.5-5.0) 09/30/17 21:03 Globulin 4.4 gm/dL (2.2-3.9) H 09/30/17 21:03 Albumin/Globulin Ratio 1.0 (1.0-2.1) 09/30/17 21:03 Lipase 163 U/L (23-300) 09/30/17 21:34 TSH 3rd Generation 0.88 mIU/L (0.46-4.68) 10/02/17 07:44 Discharge Plan - Discharge Medications Prescriptions: Propranolol [Inderal] 10 mg PO DAILY #30 tab levoFLOXacin [Levaquin] 500 mg PO DAILY #7 tab - Follow Up Plan Condition: STABLE Disposition: HOME/ ROUTINE
--- NOTE | 2017-10-05 15:32 | RAD ---
HISTORY: cough COMPARISON: Chest x-ray performed 07/30/17 TECHNIQUE: Chest PA and lateral FINDINGS: LUNGS: No focal consolidation. Please note that chest x-ray has limited sensitivity for the detection of pulmonary masses. PLEURA: No significant pleural effusion identified. No definite pneumothorax . CARDIOVASCULAR: The cardiomediastinal silhouette appears within normal limits of size. OSSEOUS STRUCTURES: Mild degenerative changes of the spine. VISUALIZED UPPER ABDOMEN: Unremarkable. OTHER FINDINGS: None. IMPRESSION: No focal consolidation identified.
--- NOTE | 2017-10-05 16:58 | CP.PCM.PN ---
Subjective - Date & Time of Evaluation Date of Evaluation: 10/05/17 Time of Evaluation: 16:55 - Subjective Subjective: PT SEEN AND EXAMINED TODAY BY DR PINTO, RESP EASY AND UNLABORED, NAD Objective - Vital Signs/Intake and Output Vital Signs (last 24 hours): Temp Pulse Resp BP Pulse Ox 98.2 F 89 20 107/70 96 10/05/17 07:45 10/05/17 07:45 10/05/17 07:45 10/05/17 07:45 10/05/17 07:45 Intake and Output: 10/05/17 10/05/17 06:59 18:59 Intake Total 300 Balance 300 - Medications Medications: Current Medications Acetaminophen (Tylenol 325mg Tab) 650 mg PO Q6 PRN PRN Reason: Headache Last Admin: 10/03/17 22:28 Dose: 650 mg Albuterol/Ipratropium (Duoneb 3 Mg/0.5 Mg (3 Ml) Ud) 3 ml INH RQ6 PRN PRN Reason: Shortness of Breath Last Admin: 10/04/17 13:27 Dose: 3 ml Aspirin (Ecotrin) 81 mg PO DAILY [facility] Last Admin: 10/05/17 10:47 Dose: 81 mg Azithromycin (Zithromax) 500 mg PO DAILY [facility] Last Admin: 10/05/17 10:46 Dose: 500 mg Clonazepam (Klonopin) 1 mg PO TID [facility] Last Admin: 10/05/17 13:47 Dose: 1 mg Docusate Sodium (Colace) 100 mg PO TID [facility] Last Admin: 10/05/17 13:46 Dose: 100 mg Enoxaparin Sodium (Lovenox) 40 mg SC DAILY [facility] Last Admin: 10/05/17 10:47 Dose: 40 mg Fluticasone Propionate (Flonase) 1 spr MARIELENA Q12 [facility] Last Admin: 10/05/17 10:47 Dose: 1 spr Gabapentin (Neurontin) 300 mg PO BID [facility] Last Admin: 10/05/17 10:47 Dose: Not Given Lactic Acid (Lac-Hydrin 12% Lotion (225 G)) 1 gm EXT BID PRN PRN Reason: eczema Metformin HCl (Glucophage) 500 mg PO BID [facility] Last Admin: 10/05/17 10:52 Dose: Not Given Montelukast Sodium (Singulair) 10 mg PO HS [facility] Last Admin: 10/04/17 21:08 Dose: 10 mg Pantoprazole Sodium (Protonix Ec Tab) 40 mg PO DAILY [facility] Last Admin: 10/05/17 10:46 Dose: 40 mg Polyethylene Glycol (Miralax) 17 gm PO BID [facility] Last Admin: 10/05/17 10:52 Dose: Not Given Promethazine HCl (Phenergan Syrup) 12.5 mg PO Q6 PRN PRN Reason: Cough Last Admin: 10/04/17 19:23 Dose: 12.5 mg Propranolol HCl (Inderal) 10 mg PO BID [facility] Last Admin: 10/05/17 10:53 Dose: Not Given Simethicone (Mylicon Chew Tab) 80 mg PO TID [facility] Last Admin: 10/05/17 13:46 Dose: 80 mg Tramadol HCl (Ultram) 50 mg PO Q6 PRN PRN Reason: Pain, moderate (4-7) Last Admin: 10/01/17 21:52 Dose: 50 mg - Labs Labs: 09/30/17 21:03 09/30/17 21:03 PT 13.2 SECONDS (9.7-12.2) H 09/30/17 21:03 INR 1.2 09/30/17 21:03 APTT 20 SECONDS (21-34) L 09/30/17 21:03 Assessment and Plan - Assessment and Plan (Free Text) Plan: 57 Y/O FEMALE WITH PMHX ADMITTED FOR PALPITATION WITH TACHYCARDIA CXRAY- NO INFILTRATION (10/05) LEVAQUIN 500 MG PO DAILY, INDERAL 10 MG PO DAILY - PER DR. PINTO F/U WITH PMD, CARDIOLOGY IN THE OFFICE AGREE, VERBALIZE UNDERSTANDING
[2017-10-05] MEDS: Promethazine 12.5 mg/10 ml Syrup PO PRN (17:38)
[2017-10-05 17:51] VITALS: BP 109/73; PULSE 80; TEMP 97.6; O2SAT 95
--- NOTE | 2017-10-05 21:10 | CARD ---
APPROVED REPORT EKG Measurement Heart [id number] <Conclusion> Normal sinus rhythm Normal ECG
--- NOTE | 2017-10-11 23:24 | CP.PCM.DIS ---
Provider - Provider Date of Admission: 09/30/17 23:41 Attending physician: Conner Robertson MD Time Spent in preparation of Discharge (in minutes): 25 Diagnosis - Discharge Diagnosis (1) COPD (chronic obstructive pulmonary disease) Status: Acute (2) Chest pain Status: Acute (3) Diabetes Status: Acute (4) Dizziness Status: Acute (5) Palpitations Status: Acute (6) Sinus tachycardia Status: Acute (7) HTN (hypertension) Status: Chronic (8) Panic disorder Status: Acute Hospital Course - Lab Results Lab Results: Most Recent Lab Values WBC 6.5 K/uL (4.8-10.8) 09/30/17 21:03 RBC 4.61 Mil/uL (3.80-5.20) 09/30/17 21:03 Hgb 11.9 g/dL (11.0-16.0) 09/30/17 21:03 Hct 36.1 % (34.0-47.0) 09/30/17 21:03 MCV 78.3 fL (81.0-99.0) L 09/30/17 21:03 MCH 25.9 pg (27.0-31.0) L 09/30/17 21:03 MCHC 33.1 g/dL (33.0-37.0) 09/30/17 21:03 RDW 15.1 % (11.5-14.5) H 09/30/17 21:03 Plt Count 258 K/uL (130-400) 09/30/17 21:03 MPV 9.0 fL (7.2-11.7) 09/30/17 21:03 Neut % (Auto) 70.5 % (50.0-75.0) 09/30/17 21:03 Lymph % (Auto) 18.0 % (20.0-40.0) L 09/30/17 21:03 [place] % (Auto) 9.1 % (0.0-10.0) 09/30/17 21:03 Eos % (Auto) 1.5 % (0.0-4.0) 09/30/17 21:03 Baso % (Auto) 0.9 % (0.0-2.0) 09/30/17 21:03 Neut # (Auto) 4.6 K/uL (1.8-7.0) 09/30/17 21:03 Lymph # (Auto) 1.2 K/uL (1.0-4.3) 09/30/17 21:03 [place] # (Auto) 0.6 K/uL (0.0-0.8) 09/30/17 21:03 Eos # (Auto) 0.1 K/uL (0.0-0.7) 09/30/17 21:03 Baso # (Auto) 0.1 K/uL (0.0-0.2) 09/30/17 21:03 PT 13.2 SECONDS (9.7-12.2) H 09/30/17 21:03 INR 1.2 09/30/17 21:03 APTT 20 SECONDS (21-34) L 09/30/17 21:03 D-Dimer, Quantitative 268 ng/mlDDU (0-243) H 09/30/17 22:04 Sodium 134 mmol/L (132-148) 09/30/17 21:03 Potassium 4.7 mmol/L (3.6-5.2) 09/30/17 21:03 Chloride 98 mmol/L (98-107) 09/30/17 21:03 Carbon Dioxide 24 mmol/L (22-30) 09/30/17 21:03 Anion Gap 16 (10-20) 09/30/17 21:03 BUN 12 mg/dL (7-17) 09/30/17 21:03 Creatinine 0.7 mg/dL (0.7-1.2) 09/30/17 21:03 Est GFR ( Amer) > 60 09/30/17 21:03 Est GFR (Non-Af Amer) > 60 09/30/17 21:03 POC Glucose (mg/dL) 78 mg/dL (65-110) 10/05/17 16:40 Random Glucose 101 mg/dL (65-105) 09/30/17 21:03 Calcium 9.0 mg/dl (8.6-10.4) 09/30/17 21:03 Total Bilirubin 1.5 mg/dL (0.2-1.3) H 09/30/17 21:03 AST 44 U/L (14-36) H D 09/30/17 21:03 ALT 14 U/L (9-52) 09/30/17 21:03 Alkaline Phosphatase 90 U/L (38-126) 09/30/17 21:03 Troponin I 0.0120 ng/mL (0.00-0.120) 09/30/17 21:03 Total Protein 8.8 g/dL (6.3-8.3) H 09/30/17 21:03 Albumin 4.4 g/dL (3.5-5.0) 09/30/17 21:03 Globulin 4.4 gm/dL (2.2-3.9) H 09/30/17 21:03 Albumin/Globulin Ratio 1.0 (1.0-2.1) 09/30/17 21:03 Lipase 163 U/L (23-300) 09/30/17 21:34 TSH 3rd Generation 0.88 mIU/L (0.46-4.68) 10/02/17 07:44 - Hospital Course Hospital Course: Pt presented with c/o dizziness and palpitations. She was found to have sinus tachycardia in ED. She was evaluated by cardiology and review of records show all workup done in the past has been negative. She reports history of ablation for SVT in the past at [facility] [place]. Patint was reassured and she continued to be anxious with panic attacks. She was also evaluated by psychiatry. She was discharged home once cleared by cardiology and psychiatry. Discharge Exam - Head Exam Head Exam: NORMAL INSPECTION - Eye Exam Eye Exam: Normal appearance - ENT Exam ENT Exam: Mucous Membranes Moist - Respiratory Exam Respiratory Exam: Chest Wall Tenderness - Cardiovascular Exam Cardiovascular Exam: REGULAR RHYTHM - GI/Abdominal Exam GI & Abdominal Exam: Normal Bowel Sounds - Extremities Exam Extremities exam: normal inspection - Neurological Exam Neurological exam: Alert, Oriented x3 - Psychiatric Exam Psychiatric exam: Normal Affect, Normal Mood Discharge Plan - Discharge Medications Prescriptions: Propranolol [Inderal] 10 mg PO DAILY 15 Days tab levoFLOXacin [Levaquin] 500 mg PO DAILY #7 tab - Follow Up Plan Condition: STABLE Disposition: HOME/ ROUTINE Instructions: Propranolol (By mouth), Levofloxacin (By mouth), Heart Failure ( DC), Palpitations (DC), Heart Healthy Diet (DC), Acute Abdominal Pain (DC) Additional Instructions: FOLLOW UP WITH YOUR PMD IN ONE WEEK FOLLOW UP WITH CARDIOLOGY IN 0NE WEEK CONTINUE HOME MEDICATIONS LEVAQUIN FOR 7 DAYS, INDERAL 10 MG PO DAILY RETURN TO ER FOR WORSENING SYMPTOMS Referrals: Conner Robertson MD [Staff Provider] - David Martin MD [Staff Provider] -
== END 2017-10-05 18:16 | disposition home or self-care (01) | DRG 192 ==
LOC: C.ER 19:42 → C.9E 23:41 → UNDOADMIN 10-01 00:04 → C.9E 10-01 00:04 → C.6T 10-01 09:23
PROVIDERS: ADMIT Internal Medicine Critical Care Medicine; ATTEND Internal Medicine Critical Care Medicine
DX: J44.9 Chronic obstructive pulmonary disease, unspecified (principal); I11.0 Hypertensive heart disease with heart failure; I50.9 Heart failure, unspecified; R00.0 Tachycardia, unspecified; F41.1 Generalized anxiety disorder; I48.91 Unspecified atrial fibrillation; E10.9 Type 1 diabetes mellitus without complications; I25.10 Atherosclerotic heart disease of native coronary artery without angina pectoris; E78.00 Pure hypercholesterolemia, unspecified; K21.9 Gastro-esophageal reflux disease without esophagitis; M19.041 Primary osteoarthritis, right hand; M19.042 Primary osteoarthritis, left hand; Z79.4 Long term (current) use of insulin; Z79.82 Long term (current) use of aspirin; Z79.899 Other long term (current) drug therapy; Z86.73 Personal history of transient ischemic attack (TIA), and cerebral infarction without residual deficits; Z90.49 Acquired absence of other specified parts of digestive tract; Z87.891 Personal history of nicotine dependence; Z95.5 Presence of coronary angioplasty implant and graft; Z98.51 Tubal ligation status

== ENCOUNTER 2017-11-24 21:05 | Inpatient (IN) | payer MEDICARE, MEDICAID ==
[2017-11-24 21:05] VITALS: BMI 41.5
--- NOTE | 2017-11-24 21:31 | C.PDOC ---
History Of Present Illness 57 y/o female presents to the ED complaining of palpitations and chest pain. Patient reports having similar symptoms in the past. Reports PMHx of A Fib, s/p ablation and was hospitalized in September for similar complaint. On arrival patient is anxious, crying, stating that shes had chest pain for the last 2 days but did not want to bother anyone. Time Seen by Provider: 11/24/17 21:30 Chief Complaint (Nursing): Palpitations History Per: Patient History/Exam Limitations: no limitations Onset/Duration Of Symptoms: Days (x2) Current Symptoms Are (Timing): Still Present Associated Symptoms: Chest Pain Quality Of Symptoms: Rapid Heart Rate Severity: Moderate Pain Scale Rating Of: 4 Exacerbating Factor(s): Pos: None Recent travel outside of the [place]: No Additional History Per: Patient Past Medical History Reviewed: Historical Data, Nursing Documentation, Vital Signs Vital Signs: Last Vital Signs Temp 97.1 F L 11/24/17 21:17 Pulse 99 H 11/25/17 00:15 Resp 13 11/25/17 00:15 BP 122/81 11/25/17 00:15 Pulse Ox 97 11/25/17 00:19 - Medical History PMH: Anxiety, Arthritis (hands), Atrial Fibrillation, CAD, Cardia Arrhythmia, CHF, COPD, Depression, Diabetes (hypoglycemia), Gastritis, Gall Bladder Disease , HTN, Hypercholesterolemia Denies: Chronic Kidney Disease Surgical History: Cholecystectomy, Coronary Stent (x2) Family History: States: Unknown Family Hx - Social History Hx Tobacco Use: Yes (QUIT) Hx Alcohol Use: No Hx Substance Use: No - Immunization History Hx Tetanus Toxoid Vaccination: No Hx Influenza Vaccination: No Hx Pneumococcal Vaccination: No Review Of Systems Constitutional: Negative for: Fever, Chills Eyes: Negative for: Redness ENT: Negative for: Throat Pain Cardiovascular: Positive for: Chest Pain, Palpitations Respiratory: Negative for: Shortness of Breath Gastrointestinal: Negative for: Nausea, Vomiting Genitourinary: Negative for: Dysuria Musculoskeletal: Negative for: Back Pain Skin: Negative for: Rash Neurological: Negative for: Weakness Psych: Positive for: Anxiety Physical Exam - Physical Exam Appears: No Acute Distress, Other (Anxious appearing) Skin: Warm, Dry Head: Normacephalic Eye(s): bilateral: Normal Inspection Oral Mucosa: Moist Neck: Trachea Midline, Supple Chest: Symmetrical Cardiovascular: Rhythm Regular Respiratory: No Rales, No Rhonchi, No Wheezing Gastrointestinal/Abdominal: Bowel Sounds (tympanic to percussion), Soft, Tenderness (Mild diffuse tenderness), Distention, No Guarding Extremity: Normal ROM, Pedal Edema (trace) Extremity: Bilateral: Atraumatic Pulses: Left Dorsalis Pedis: Normal, Right Dorsalis Pedis: Normal Neurological/Psych: Oriented x3 Gait: Steady ED Course And Treatment - Laboratory Results Result Diagrams: 11/24/17 22:10 11/24/17 22:10 ECG: Interpreted By Me, Viewed By Me ECG Rhythm: Sinus Rhythm (82), Nonspecific Changes O2 Sat by Pulse Oximetry: 97 Pulse Ox Interpretation: Normal - CT Scan/US CT Chest Other Rad Studies (CT/US): Read By Radiologist, Radiology Report Reviewed CT/US Interpretation: FINDINGS: Limitations: Motion artifact - mild. Lungs: Mild atelectasis/scarring. No consolidation. Pleural space: No pneumothorax. No significant effusion. Heart: Borderline cardiomegaly. No significant pericardial effusion. Mediastinum: Probable small hiatal hernia. Bones/joints : No acute fracture. Soft tissues: Unremarkable. Vasculature: Unremarkable. No aneurysm. Lymph nodes: Several subcentimeter/few borderline enlarged short axis axillary lymph nodes. Gallbladder and bile ducts: Gallbladder not visualized. IMPRESSION: 1. Borderline cardiomegaly. 2. Incidental/non-acute findings are described above. Thank you for allowing us to participate in the care of your patient. Dictated and Authenticated by: Arslan Prabhakar MD. 11/24 11:32 PM Eastern Time ([place] & [place]) Progress Note: Ordered labs, EKG, and CT Chest. Patient given 325 mg Aspirin PO and 2 mg IV Morphine. Disposition Discussed With : Bladimir Zuñiga Comment: accepted the pt on his service and took over the care at 12:30 PM Doctor Will See Patient In The: Hospital Counseled Patient/Family Regarding: Studies Performed, Diagnosis - Disposition Disposition: HOSPITALIZED Disposition Time: 00:30 Condition: FAIR Forms: [facility] (Persian) - POA Present On Arrival: None - Clinical Impression Clinical Impression: Chest pain, Palpitations - Scribe Statement The provider has reviewed the documentation as recorded by the Shala Thompson Provider Attestation: All medical record entries made by the Scribe were at my direction and personally dictated by me. I have reviewed the chart and agree that the record accurately reflects my personal performance of the history, physical exam, medical decision making, and the department course for this patient. I have also personally directed, reviewed, and agree with the discharge instructions and disposition. Decision To Admit - Pt Status Changed To: Hospital Disposition Of: Inpatient - Admit Certification Admit to Inpatient:: After my assessment, the patient will require hospitalization for at least two midnights. This is because of the severity of symptoms shown, intensity of services needed, and/or the medical risk in this patient being treated as an outpatient. - InPatient: Physician Admission Certification: I certify that this patient requires 2 or more midnights of care for the following reason:: After my assessment, the patient will require hospitalization for at least two midnights. This is because of the severity of symptoms shown, intensity of services needed, and/or the medical risk in this patient being treated as an outpatient. - . Bed Request Type: Telemetry Admitting Physician: Bladimir Zuñiga Patient Diagnosis: Chest pain, Palpitations
[2017-11-24] MEDS ORDERED: Aspirin 325 mg EC Tablets PO STA (21:36)
[2017-11-24] MEDS ORDERED: Morphine 4 MG/ML VIAL ONE (22:06)
[2017-11-24] MEDS ORDERED: Aspirin 325 mg EC Tablets PO ONE (22:07)
[2017-11-24 22:14] LABS: BASO # 0.1 K/uL (0.0-0.2); BASO % 1.5 % (0.0-2.0); EOS # 0.3 K/uL (0.0-0.7); EOS % 4.5 % (0.0-4.0); HEMOGLOBIN 11.8 g/dL (11.0-16.0); LYMPH # 2.4 K/uL (1.0-4.3); MEAN CELL VOLUME 78.5 fL (81.0-99.0); MEAN CORPUSCULAR HEMOGLOBIN 26.7 pg (27.0-31.0); MEAN CORPUSCULAR HGB CONC 34.1 g/dL (33.0-37.0); MEAN PLATELET VOLUME 8.6 fL (7.2-11.7); MONO # 0.5 K/uL (0.0-0.8); MONO % 6.9 % (0.0-10.0); NEUT # 4.1 K/uL (1.8-7.0); NEUT % 55.1 % (50.0-75.0); RBC 4.42 Mil/uL (3.80-5.20); WHITE BLOOD COUNT 7.5 K/uL (4.8-10.8)
[2017-11-24 22:26] LABS: ALB/GLOB RATIO 0.9 (1.0-2.1); ALBUMIN 4.2 g/dL (3.5-5.0); CALCIUM 9.2 mg/dl (8.6-10.4); GFR AFRICAN-AMERICAN > 60; GFR NON-AFRICAN AMERICAN > 60
[2017-11-24 22:27] LABS: ALT/SGPT 18 U/L (9-52); AST/SGOT 27 U/L (14-36); BLOOD UREA NITROGEN 18 mg/dL (7-17)
[2017-11-24 22:28] LABS: INR 1.1; PROTHROMBIN TIME 12.3 SECONDS (9.7-12.2)
[2017-11-24 22:37] LABS: B-TYPE NATRIURETIC PEPTIDE < 11.1 pg/mL (0-900)
[2017-11-24] MEDS ORDERED: Iohexol 300 100 ML IJ ONE (22:51)
--- NOTE | 2017-11-24 23:33 | CT ---
EXAM: CT Chest With Intravenous Contrast CLINICAL HISTORY: 57 years old, female; Pain; Chest pain; Type not specified TECHNIQUE: Axial computed tomography images of the chest with intravenous contrast. All CT scans at this facility use one or more dose reduction techniques, viz.: automated exposure control; ma/kV adjustment per patient size (including targeted exams where dose is matched to indication; i.e. head); or iterative reconstruction technique. Coronal and sagittal reformatted images were created and reviewed. CONTRAST: 100 mL of omnipaque 300 administered intravenously. COMPARISON: No relevant prior studies available. FINDINGS: Limitations: Motion artifact - mild. Lungs: Mild atelectasis/scarring. No consolidation. Pleural space: No pneumothorax. No significant effusion. Heart: Borderline cardiomegaly. No significant pericardial effusion. Mediastinum: Probable small hiatal hernia. Bones/joints: No acute fracture. Soft tissues: Unremarkable. Vasculature: Unremarkable. No aneurysm. Lymph nodes: Several subcentimeter/few borderline enlarged short axis axillary lymph nodes. Gallbladder and bile ducts: Gallbladder not visualized. IMPRESSION: 1. Borderline cardiomegaly. 2. Incidental/non-acute findings are described above.
[2017-11-25] MEDS ORDERED: Enoxaparin 40 mg Syringe SC ONE (00:43)
[2017-11-25] MEDS ORDERED: HYDROCHLOROTHIAZID PO PRN ×2 (01:06→15:32)
[2017-11-25] MEDS ORDERED: TELMISARTAN PO PRN ×2 (01:06→15:32)
[2017-11-25] MEDS ORDERED: Albuterol HFA 90 mcg/actuation (8 g) IH PRN (01:06)
[2017-11-25 07:39] LABS: CK-MB < 0.22 ng/mL (0.0-3.38)
[2017-11-25] MEDS: (Novolog) Insulin Aspart, Recombinant 100 u/ml 10 ml vial SC SCH ×4 (08:33→22:16)
[2017-11-25] MEDS ORDERED: Home Med 1 UNIT (Omeprazole [Omeprazole] 20 MG) PO SCH (10:00)
[2017-11-25] MEDS: Pantoprazole 40 mg EC Tab PO SCH (10:00)
[2017-11-25] MEDS ORDERED: Propranolol 5 mg Tab PO SCH (10:00)
[2017-11-25] MEDS: Aspirin 325 mg EC Tablets PO SCH (10:01)
[2017-11-25] MEDS: Enoxaparin 40 mg Syringe SC SCH (10:02)
--- NOTE | 2017-11-25 11:37 | CP.PCM.CON ---
History of Present Illness - History of Present Illness History of Present Illness: The patient is a 57 year old woman with a history of svt and two ablations several years ago. Subsequently, the patient has been admitted countless times for chest pain and palpitations, both her and at [facility]. pt has had chest pain for a day nowm has it now. C Cath was normal late last year at [facility]. ECG and telemetry do not demonstrate arrhythmia. Labs are wnl. Pt also had a normal echo last year. 'Pt has a known anxiety disorder. Ex smoker, diabetic Review of Systems - Review of Systems All systems: reviewed and no additional remarkable complaints except (as above) Past Patient History - Infectious Disease Hx of Infectious Diseases: None - Tetanus Immunizations Tetanus Immunization: Unknown - Past Medical History & Family History Past Medical History?: Yes - Past Social History Smoking Status: Former Smoker - CARDIAC Hx Atrial Fibrillation: Yes Hx Cardia Arrhythmia: Yes Hx Congestive Heart Failure: Yes Hx Hypercholesterolemia: Yes Hx Hypertension: Yes - PULMONARY Hx Chronic Obstructive Pulmonary Disease (COPD): Yes - NEUROLOGICAL Hx Neurological Disorder: Yes HX Cerebrovascular Accident: Yes Hx Dizziness: Yes - HEENT Hx HEENT Problems: Yes Other/Comment: wears glasses for reading - RENAL Hx Chronic Kidney Disease: No - ENDOCRINE/METABOLIC Hx Endocrine Disorders: Yes Hx Diabetes Mellitus Type 1: Yes - HEMATOLOGICAL/ONCOLOGICAL Hx Blood Disorders: No - INTEGUMENTARY Hx Dermatological Problems: Yes Hx Eczema: Yes - MUSCULOSKELETAL/RHEUMATOLOGICAL Hx Arthritis: Yes (hands) - GASTROINTESTINAL Hx Gall Bladder Disease: Yes Hx Gastritis: Yes - GENITOURINARY/GYNECOLOGICAL Hx Genitourinary Disorders: No - PSYCHIATRIC Hx Anxiety: Yes Hx Depression: Yes Hx Substance Use: No - SURGICAL HISTORY Hx Cholecystectomy: Yes Hx Coronary Stent: Yes (x2) Other/Comment: no further information provided - ANESTHESIA Hx Anesthesia: Yes Hx Anesthesia Reactions: No Meds Allergies/Adverse Reactions: Allergies Allergy/AdvReac Type Severity Reaction Status Date / Time escitalopram [From Lexapro] AdvReac ANAPHYLAXIS Verified 08/10/17 16:23 Flu vaccine Allergy ANAPHYLAXIS Uncoded 08/10/17 16:23 pnuemonia vaccine Allergy ANAPHYLAXIS Uncoded 08/10/17 16:23 wool Allergy ANAPHYLAXIS Uncoded 08/10/17 16:23 - Medications Medications: Current Medications Acetaminophen (Tylenol 325mg Tab) 650 mg PO Q6 PRN PRN Reason: Headache Albuterol (Ventolin Hfa 90 Mcg/Actuation (8 G)) 2 puff IH RQ6 PRN PRN Reason: Cough Aspirin (Ecotrin) 325 mg PO DAILY [facility] Last Admin: 11/25/17 10:01 Dose: 325 mg Clonazepam (Klonopin) 1 mg PO TID [facility] Last Admin: 11/25/17 10:00 Dose: 1 mg Docusate Sodium (Colace) 100 mg PO DAILY [facility] Last Admin: 11/25/17 10:00 Dose: 100 mg Enoxaparin Sodium (Lovenox) 40 mg SC DAILY [facility] Last Admin: 11/25/17 10:02 Dose: 40 mg Fluticasone Propionate (Flonase) 1 spr MARIELENA Q12 [facility] Gabapentin (Neurontin) 300 mg PO BID [facility] Home Med (Omeprazole [Omeprazole]) 20 mg PO DAILY [facility] Home Med (Telmisartan/Hydrochlorothiazid [Micardis Hct 40-12.5 Mg Tablet]) 1 tab PO PRN PRN PRN Reason: high BP Hydrochlorothiazide (Microzide) 12.5 mg PO DAILY [facility] Last Admin: 11/25/17 10:00 Dose: 12.5 mg Insulin Aspart (Novolog) 0 unit SC ACHS [facility] PRN Reason: Protocol Last Admin: 11/25/17 08:33 Dose: Not Given Ketorolac Tromethamine (Toradol) 10 mg PO Q8 PRN PRN Reason: Pain, moderate (4-7) Montelukast Sodium (Singulair) 10 mg PO DAILY [facility] Last Admin: 11/25/17 10:01 Dose: 10 mg Pantoprazole Sodium (Protonix Ec Tab) 40 mg PO DAILY [facility] Last Admin: 11/25/17 10:00 Dose: 40 mg Propranolol HCl (Inderal) 10 mg PO DAILY [facility] Physical Exam - Constitutional Appears: Well, No Acute Distress - Eye Exam Eye Exam: EOMI - ENT Exam ENT Exam: Mucous Membranes Moist - Neck Exam Neck exam: Positive for: Normal Inspection - Respiratory Exam Respiratory Exam: Clear to Auscultation Bilateral, NORMAL BREATHING PATTERN - Cardiovascular Exam Cardiovascular Exam: REGULAR RHYTHM - GI/Abdominal Exam GI & Abdominal Exam: Normal Bowel Sounds - Rectal Exam Rectal Exam: NORMAL INSPECTION - Exam External exam: NORMAL EXTERNAL EXAM - Extremities Exam Extremities exam: Positive for: normal inspection - Back Exam Back exam: NORMAL INSPECTION - Neurological Exam Neurological exam: Alert, CN II-XII Intact, Oriented x3 - Psychiatric Exam Psychiatric exam: Anxious - Skin Skin Exam: Normal Color Results - Vital Signs Recent Vital Signs: Last Vital Signs Temp 97.9 F 11/25/17 08:43 Pulse 72 11/25/17 08:43 Resp 20 11/25/17 08:43 BP 111/72 11/25/17 08:43 Pulse Ox 96 11/25/17 08:43 - Labs Result Diagrams: 11/24/17 22:10 11/24/17 22:10 Labs: Laboratory Results - last 24 hr 11/24/17 11/24/17 11/24/17 22:10 22:10 22:10 WBC 7.5 RBC 4.42 Hgb 11.8 Hct 34.7 MCV 78.5 L MCH 26.7 L MCHC 34.1 RDW 16.0 H Plt Count 333 MPV 8.6 Neut % (Auto) 55.1 Lymph % (Auto) 32.0 Rice % (Auto) 6.9 Eos % (Auto) 4.5 H Baso % (Auto) 1.5 Neut # (Auto) 4.1 Lymph # (Auto) 2.4 Rice # (Auto) 0.5 Eos # (Auto) 0.3 Baso # (Auto) 0.1 PT 12.3 H INR 1.1 APTT 29 Sodium 146 Potassium 3.6 Chloride 100 Carbon Dioxide 27 Anion Gap 23 H BUN 18 H Creatinine 0.8 Est GFR ( Amer) > 60 Est GFR (Non-Af Amer) > 60 POC Glucose (mg/dL) Random Glucose 104 Calcium 9.2 Total Bilirubin 0.7 AST 27 ALT 18 Alkaline Phosphatase 91 Total Creatine Kinase CK-MB (Mass) Troponin I < 0.0120 NT-Pro-B Natriuret Pep < 11.1 Total Protein 8.9 H Albumin 4.2 Globulin 4.7 H Albumin/Globulin Ratio 0.9 L 11/25/17 11/25/17 11/25/17 01:15 01:56 06:47 WBC RBC Hgb Hct MCV MCH MCHC RDW Plt Count MPV Neut % (Auto) Lymph % (Auto) Rice % (Auto) Eos % (Auto) Baso % (Auto) Neut # (Auto) Lymph # (Auto) Rice # (Auto) Eos # (Auto) Baso # (Auto) PT INR APTT Sodium Potassium Chloride Carbon Dioxide Anion Gap BUN Creatinine Est GFR ( Amer) Est GFR (Non-Af Amer) POC Glucose (mg/dL) 128 H 110 Random Glucose Calcium Total Bilirubin AST ALT Alkaline Phosphatase Total Creatine Kinase 57 CK-MB (Mass) < 0.22 Troponin I < 0.0120 NT-Pro-B Natriuret Pep Total Protein Albumin Globulin Albumin/Globulin Ratio 11/25/17 06:48 WBC RBC Hgb Hct MCV MCH MCHC RDW Plt Count MPV Neut % (Auto) Lymph % (Auto) Rice % (Auto) Eos % (Auto) Baso % (Auto) Neut # (Auto) Lymph # (Auto) Rice # (Auto) Eos # (Auto) Baso # (Auto) PT INR APTT Sodium Potassium Chloride Carbon Dioxide Anion Gap BUN Creatinine Est GFR ( Amer) Est GFR (Non-Af Amer) POC Glucose (mg/dL) 77 Random Glucose Calcium Total Bilirubin AST ALT Alkaline Phosphatase Total Creatine Kinase CK-MB (Mass) Troponin I NT-Pro-B Natriuret Pep Total Protein Albumin Globulin Albumin/Globulin Ratio - EKG Data EKG Interpreted by: Myself EKG shows normal: Sinus rhythm (normal ecg) Assessment & Plan - Assessment and Plan (Free Text) Assessment: 1. Non anginal chest pain, anxiety disorder 2. Pt will resume her symptomatic regimen of cardezem and inderal. No evidence of arrhythmia. 3. Recommend psychiatric evaluation 4. Will sign off thank you
[2017-11-25] MEDS: Fluticasone Nasal 50 mcg/Spray NAS SCH ×2 (12:02→22:02)
[2017-11-25 14:19] LABS: CK-MB < 0.22 ng/mL (0.0-3.38)
[2017-11-26] MEDS: (Novolog) Insulin Aspart, Recombinant 100 u/ml 10 ml vial SC SCH ×4 (08:00→21:38)
[2017-11-26] MEDS: Aspirin 325 mg EC Tablets PO SCH (09:10)
[2017-11-26] MEDS: Pantoprazole 40 mg EC Tab PO SCH ×2 (09:17→10:00)
[2017-11-26] MEDS ORDERED: Bisacodyl 5mg EC Tab PO ONE ×2 (09:50→18:39)
[2017-11-26] MEDS: Fluticasone Nasal 50 mcg/Spray NAS SCH ×2 (10:00→21:37)
[2017-11-26] MEDS: Enoxaparin 40 mg Syringe SC SCH (10:30)
--- NOTE | 2017-11-26 11:39 | CP.PCM.HP ---
Past Patient History - Infectious Disease Hx of Infectious Diseases: None - Tetanus Immunizations Tetanus Immunization: Unknown - Past Medical History & Family History Past Medical History?: Yes - Past Social History Smoking Status: Former Smoker - CARDIAC Hx Atrial Fibrillation: Yes Hx Cardia Arrhythmia: Yes Hx Congestive Heart Failure: Yes Hx Hypercholesterolemia: Yes Hx Hypertension: Yes - PULMONARY Hx Chronic Obstructive Pulmonary Disease (COPD): Yes - NEUROLOGICAL Hx Neurological Disorder: Yes HX Cerebrovascular Accident: Yes Hx Dizziness: Yes - HEENT Hx HEENT Problems: Yes Other/Comment: wears glasses for reading - RENAL Hx Chronic Kidney Disease: No - ENDOCRINE/METABOLIC Hx Endocrine Disorders: Yes Hx Diabetes Mellitus Type 1: Yes - HEMATOLOGICAL/ONCOLOGICAL Hx Blood Disorders: No - INTEGUMENTARY Hx Dermatological Problems: Yes Hx Eczema: Yes - MUSCULOSKELETAL/RHEUMATOLOGICAL Hx Arthritis: Yes (hands) - GASTROINTESTINAL Hx Gall Bladder Disease: Yes Hx Gastritis: Yes - GENITOURINARY/GYNECOLOGICAL Hx Genitourinary Disorders: No - PSYCHIATRIC Hx Anxiety: Yes Hx Depression: Yes Hx Substance Use: No - SURGICAL HISTORY Hx Cholecystectomy: Yes Hx Coronary Stent: Yes (x2) Other/Comment: no further information provided - ANESTHESIA Hx Anesthesia: Yes Hx Anesthesia Reactions: No Meds Allergies/Adverse Reactions: Allergies Allergy/AdvReac Type Severity Reaction Status Date / Time escitalopram [From Lexapro] AdvReac ANAPHYLAXIS Verified 08/10/17 16:23 Flu vaccine Allergy ANAPHYLAXIS Uncoded 08/10/17 16:23 pnuemonia vaccine Allergy ANAPHYLAXIS Uncoded 08/10/17 16:23 wool Allergy ANAPHYLAXIS Uncoded 08/10/17 16:23 Physical Exam - Constitutional Appears: Well - Head Exam Head Exam: ATRAUMATIC, NORMAL INSPECTION, NORMOCEPHALIC - Eye Exam Eye Exam: EOMI, Normal appearance, PERRL Pupil Exam: NORMAL ACCOMODATION, PERRL - ENT Exam ENT Exam: Mucous Membranes Moist, Normal Exam - Neck Exam Neck exam: Positive for: Normal Inspection - Respiratory Exam Respiratory Exam: Decreased Breath Sounds - Cardiovascular Exam Cardiovascular Exam: REGULAR RHYTHM, +S1, +S2 - GI/Abdominal Exam GI & Abdominal Exam: Diminished Bowel Sounds, Soft - Rectal Exam Rectal Exam: Deferred Results - Vital Signs Recent Vital Signs: Last Vital Signs Temp 97.8 F 11/26/17 07:30 Pulse 68 11/26/17 07:40 Resp 20 11/26/17 07:30 BP 110/75 11/26/17 07:30 Pulse Ox 98 11/26/17 07:30 - Labs Result Diagrams: 11/24/17 22:10 11/24/17 22:10 Labs: Laboratory Results - last 24 hr 11/25/17 11/25/17 11/25/17 11:45 13:40 17:09 POC Glucose (mg/dL) 88 98 Total Creatine Kinase 80 CK-MB (Mass) < 0.22 Troponin I < 0.0120 11/25/17 11/26/17 11/26/17 21:20 05:02 06:51 POC Glucose (mg/dL) 90 108 101 Total Creatine Kinase CK-MB (Mass) Troponin I
--- NOTE | 2017-11-26 14:02 | CP.PCM.PN ---
Subjective - Date & Time of Evaluation Date of Evaluation: 11/26/17 Time of Evaluation: 11:00 - Subjective Subjective: PGY-[address] Zuñiga Patient seen and examined at bedside. Patient states she is very concerned about her heart even all the cardiac workup as been negative. Patient begins to cry as she complains that doctors are not doing enough for her. Patient also complains of diffused abdominal pain and have not had a bowel movement for a week. Objective - Vital Signs/Intake and Output Vital Signs (last 24 hours): Temp Pulse Resp BP Pulse Ox 97.8 F 68 20 110/75 98 11/26/17 07:30 11/26/17 07:40 11/26/17 07:30 11/26/17 07:30 11/26/17 07:30 Intake and Output: 11/26/17 11/26/17 06:59 18:59 Intake Total 260 Balance 260 - Medications Medications: Current Medications Acetaminophen (Tylenol 325mg Tab) 650 mg PO Q6 PRN PRN Reason: Headache Albuterol (Ventolin Hfa 90 Mcg/Actuation (8 G)) 2 puff IH RQ6 PRN PRN Reason: Cough Aspirin (Ecotrin) 325 mg PO DAILY [facility] Last Admin: 11/26/17 09:10 Dose: 325 mg Clonazepam (Klonopin) 1 mg PO TID [facility] Last Admin: 11/26/17 09:10 Dose: 1 mg Diltiazem HCl (Cardizem) 30 mg PO BID [facility] Docusate Sodium (Colace) 100 mg PO DAILY [facility] Last Admin: 11/26/17 11:00 Dose: 100 mg Enoxaparin Sodium (Lovenox) 40 mg SC DAILY [facility] Last Admin: 11/26/17 10:30 Dose: 40 mg Fluticasone Propionate (Flonase) 1 spr MARIELENA Q12 [facility] Last Admin: 11/26/17 10:00 Dose: 1 applic Gabapentin (Neurontin) 300 mg PO BID [facility] Last Admin: 11/26/17 09:09 Dose: 300 mg Hydrochlorothiazide (Microzide) 12.5 mg PO DAILY [facility] Last Admin: 11/26/17 09:07 Dose: 12.5 mg Insulin Aspart (Novolog) 0 unit SC ACHS [facility] PRN Reason: Protocol Last Admin: 11/26/17 08:00 Dose: Not Given Ketorolac Tromethamine (Toradol) 10 mg PO Q8 PRN PRN Reason: Pain, moderate (4-7) Last Admin: 11/26/17 09:14 Dose: 10 mg Losartan Potassium (Cozaar) 50 mg PO DAILY [facility] Last Admin: 11/26/17 12:06 Dose: 50 mg Montelukast Sodium (Singulair) 10 mg PO DAILY [facility] Last Admin: 11/26/17 09:07 Dose: 10 mg Pantoprazole Sodium (Protonix Ec Tab) 40 mg PO DAILY [facility] Last Admin: 11/26/17 10:00 Dose: 40 mg Pantoprazole Sodium (Protonix Ec Tab) 40 mg PO DAILY [facility] Last Admin: 11/26/17 09:17 Dose: 40 mg Propranolol HCl (Inderal) 10 mg PO HS [facility] Last Admin: 11/25/17 22:01 Dose: 10 mg Sucralfate (Carafate Tab) 1 gm PO PCB [facility] - Labs Labs: 11/24/17 22:10 11/24/17 22:10 PT 12.3 SECONDS (9.7-12.2) H 11/24/17 22:10 INR 1.1 11/24/17 22:10 APTT 29 SECONDS (21-34) 11/24/17 22:10 - Additional Findings Additional findings: - Constitutional Appears: Non-toxic, No Acute Distress - Head Exam Head Exam: NORMAL INSPECTION - Eye Exam Eye Exam: EOMI, Normal appearance - ENT Exam ENT Exam: Mucous Membranes Moist - Neck Exam Neck exam: Positive for: Normal Inspection - Respiratory Exam Respiratory Exam: Clear to Auscultation Bilateral, NORMAL BREATHING PATTERN. absent: Rales, Rhonchi, Wheezes - Cardiovascular Exam Cardiovascular Exam: RRR, +S1, +S2. absent: Bradycardia, Tachycardia, Diastolic murmur, Gallop, Rubs, Systolic Murmur - GI/Abdominal Exam GI & Abdominal Exam: Normal Bowel Sounds, Soft, Tenderness (generalized). absent: Distended, Firm, Guarding, Rebound, Rigid - Extremities Exam Extremities exam: Positive for: normal capillary refill, normal inspection, pedal pulses present. Negative for: calf tenderness, pedal edema - Neurological Exam Neurological exam: Alert, Awake, Oriented x3 - Psychiatric Exam Psychiatric exam: Anxious - Skin Skin Exam: Dry, Intact, Normal Color, Warm Assessment and Plan - Assessment and Plan (Free Text) Assessment: Chest pain -Likely secondary to anxiety -EKG shows no axis deviation, no acute ST changes -Troponin negative X3 -Normal Cardiac cath in 2017 -CT chest showed borderline cardiomegaly (see report) -ASA 325mg -Cardiology consulted, Dr. Guajardo help appreciated Abdominal pain -Likely due to chronic constipation -Dulcolax, colace, carafate -Follow up Lipase History of Anxiety -Klonopin 1mg PO TID DM -A1C 6.8 in 2013, 5.4 in 2017 -ISS -Hold oral diabetes meds due to poor oral intake -Accuchecks ACHS Asthma and COPD -continue Ventolin PRN -Singulair 10mg po Hypertension -HCTZ 12.5mg -Losartan 50mg po -Propranolol 10mg po Prohylaxis -Lovenox -Protonix -SCDs Discussed with attending physician All management per Dr. Zuñiga
--- NOTE | 2017-11-26 20:47 | CP.PCM.PN ---
Subjective - Date & Time of Evaluation Date of Evaluation: 11/26/17 Time of Evaluation: 13:05 - Subjective Subjective: 57 F with extensive cardiac work up seen by different cardiologists admitted for chest pain Cardiac Cath by Dr. Charles Wallace: Normal Coronaries and EF Normal ECHO findings Patient seen and evaluated Admitted for chest pain. Non exertional Physical examination - Additional Findings Additional findings: - Constitutional Appears: Non-toxic, No Acute Distress - Head Exam Head Exam: NORMAL INSPECTION - Eye Exam Eye Exam: EOMI, Normal appearance - ENT Exam ENT Exam: Mucous Membranes Moist - Neck Exam Neck exam: Positive for: Normal Inspection - Respiratory Exam Respiratory Exam: Clear to Auscultation Bilateral, NORMAL BREATHING PATTERN. absent: Rales, Rhonchi, Wheezes - Cardiovascular Exam Cardiovascular Exam: RRR, +S1, +S2. absent: Bradycardia, Tachycardia, Diastolic murmur, Gallop, Rubs, Systolic Murmur - GI/Abdominal Exam GI & Abdominal Exam: Normal Bowel Sounds, Soft, Tenderness (generalized). absent: Distended, Firm, Guarding, Rebound, Rigid - Extremities Exam Extremities exam: Positive for: normal capillary refill, normal inspection, pedal pulses present. Negative for: calf tenderness, pedal edema - Neurological Exam Neurological exam: Alert, Awake, Oriented x3 - Psychiatric Exam Psychiatric exam: Anxious - Skin Skin Exam: Dry, Intact, Normal Color, Warm Objective - Vital Signs/Intake and Output Vital Signs (last 24 hours): Temp Pulse Resp BP Pulse Ox 98.1 F 64 20 107/72 97 11/26/17 16:17 11/26/17 16:17 11/26/17 16:17 11/26/17 16:17 11/26/17 16:17 - Medications Medications: Current Medications Acetaminophen (Tylenol 325mg Tab) 650 mg PO Q6 PRN PRN Reason: Headache Albuterol (Ventolin Hfa 90 Mcg/Actuation (8 G)) 2 puff IH RQ6 PRN PRN Reason: Cough Clonazepam (Klonopin) 1 mg PO TID [facility] Last Admin: 11/26/17 17:42 Dose: 1 mg Diltiazem HCl (Cardizem) 30 mg PO BID [facility] Last Admin: 11/26/17 17:42 Dose: 30 mg Docusate Sodium (Colace) 100 mg PO DAILY [facility] Last Admin: 11/26/17 11:00 Dose: 100 mg Enoxaparin Sodium (Lovenox) 40 mg SC DAILY [facility] Last Admin: 11/26/17 10:30 Dose: 40 mg Fluticasone Propionate (Flonase) 1 spr MARIELENA Q12 [facility] Last Admin: 11/26/17 10:00 Dose: 1 applic Gabapentin (Neurontin) 300 mg PO BID [facility] Last Admin: 11/26/17 20:06 Dose: Not Given Hydrochlorothiazide (Microzide) 12.5 mg PO DAILY [facility] Last Admin: 11/26/17 09:07 Dose: 12.5 mg Insulin Aspart (Novolog) 0 unit SC ACHS [facility] PRN Reason: Protocol Last Admin: 11/26/17 16:28 Dose: Not Given Ketorolac Tromethamine (Toradol) 10 mg PO Q8 PRN PRN Reason: Pain, moderate (4-7) Last Admin: 11/26/17 17:41 Dose: 10 mg Losartan Potassium (Cozaar) 50 mg PO DAILY [facility] Last Admin: 11/26/17 12:06 Dose: 50 mg Montelukast Sodium (Singulair) 10 mg PO DAILY [facility] Last Admin: 11/26/17 09:07 Dose: 10 mg Pantoprazole Sodium (Protonix Ec Tab) 40 mg PO DAILY [facility] Last Admin: 11/26/17 09:17 Dose: 40 mg Sucralfate (Carafate Tab) 1 gm PO PCB [facility] Last Admin: 11/26/17 14:40 Dose: 1 gm - Labs Labs: 11/24/17 22:10 11/24/17 22:10 PT 12.3 SECONDS (9.7-12.2) H 11/24/17 22:10 INR 1.1 11/24/17 22:10 APTT 29 SECONDS (21-34) 11/24/17 22:10 Assessment and Plan - Assessment and Plan (Free Text) Assessment: Patient with chest pain Non cardiac seen by multiple cardiologists in the past Primary [employer] Designer: Dr. Mcclain? or Jed? Cath (Dr. Adkins-2017): Normal Coronaries ECHO: Normal EF, No valvular issues EKG: Prolonged QT likley medications: Prior EKGs normal Repeat EKG in am Medical mgt. No further cardiac work up needed
[2017-11-27] MEDS: (Novolog) Insulin Aspart, Recombinant 100 u/ml 10 ml vial SC SCH ×4 (07:40→22:45)
[2017-11-27 08:27] LABS: BASO # 0.1 K/uL (0.0-0.2); EOS # 0.4 K/uL (0.0-0.7); EOS % 7.3 % (0.0-4.0); HEMOGLOBIN 10.4 g/dL (11.0-16.0); LYMPH # 2.2 K/uL (1.0-4.3); LYMPH % 39.7 % (20.0-40.0); MEAN CELL VOLUME 79.2 fL (81.0-99.0); MEAN CORPUSCULAR HEMOGLOBIN 26.2 pg (27.0-31.0); MEAN CORPUSCULAR HGB CONC 33.1 g/dL (33.0-37.0); MONO # 0.5 K/uL (0.0-0.8); MONO % 8.2 % (0.0-10.0); NEUT # 2.5 K/uL (1.8-7.0); NEUT % 43.8 % (50.0-75.0); RBC 3.95 Mil/uL (3.80-5.20); WHITE BLOOD COUNT 5.6 K/uL (4.8-10.8)
[2017-11-27 08:55] LABS: ALB/GLOB RATIO 0.9 (1.0-2.1); ALBUMIN 3.6 g/dL (3.5-5.0); ALT/SGPT 51 U/L (9-52); AST/SGOT 24 U/L (14-36); BLOOD UREA NITROGEN 17 mg/dL (7-17); CALCIUM 8.8 mg/dl (8.6-10.4); GFR AFRICAN-AMERICAN > 60; GFR NON-AFRICAN AMERICAN > 60
[2017-11-27] MEDS: Pantoprazole 40 mg EC Tab PO SCH (09:46)
[2017-11-27] MEDS: Enoxaparin 40 mg Syringe SC SCH (09:53)
[2017-11-27] MEDS: Fluticasone Nasal 50 mcg/Spray NAS SCH ×2 (09:56→23:04)
--- NOTE | 2017-11-27 10:18 | CARD ---
APPROVED REPORT EKG Measurement Heart [id number] <Conclusion> Normal sinus rhythm Normal ECG
[2017-11-27] MEDS ORDERED: Potassium Chloride 20 mEq ER Tab PO ONE (12:05)
[2017-11-27 14:07] LABS: AMYLASE 98 U/L (30-110); LIPASE 259 U/L (23-300)
[2017-11-27] MEDS: Belladonna-Phenobarbital PO SCH ×2 (15:05→17:28)
--- NOTE | 2017-11-27 17:53 | CP.PCM.PN ---
Subjective - Date & Time of Evaluation Date of Evaluation: 11/27/17 Time of Evaluation: 12:00 - Subjective Subjective: clinically same Objective - Vital Signs/Intake and Output Vital Signs (last 24 hours): Temp Pulse Resp BP Pulse Ox 97.9 F 73 20 118/80 94 L 11/27/17 15:00 11/27/17 15:00 11/27/17 15:00 11/27/17 15:00 11/27/17 15:00 Intake and Output: 11/27/17 11/27/17 06:59 18:59 Intake Total 60 Balance 60 - Medications Medications: Current Medications Acetaminophen (Tylenol 325mg Tab) 650 mg PO Q6 PRN PRN Reason: Headache Albuterol (Ventolin Hfa 90 Mcg/Actuation (8 G)) 2 puff IH RQ6 PRN PRN Reason: Cough Belladonna/Phenobarbital () 1 tab PO TID [facility] Last Admin: 11/27/17 17:28 Dose: 1 tab Clonazepam (Klonopin) 1 mg PO TID [facility] Last Admin: 11/27/17 17:29 Dose: 1 mg Diltiazem HCl (Cardizem) 30 mg PO BID [facility] Last Admin: 11/27/17 09:46 Dose: 30 mg Docusate Sodium (Colace) 100 mg PO DAILY [facility] Last Admin: 11/27/17 09:45 Dose: 100 mg Enoxaparin Sodium (Lovenox) 40 mg SC DAILY [facility] Last Admin: 11/27/17 09:53 Dose: 40 mg Fluticasone Propionate (Flonase) 1 spr MARIELENA Q12 [facility] Last Admin: 11/27/17 09:56 Dose: 1 applic Gabapentin (Neurontin) 300 mg PO BID [facility] Last Admin: 11/27/17 17:08 Dose: Not Given Hydrochlorothiazide (Microzide) 12.5 mg PO DAILY [facility] Last Admin: 11/27/17 09:46 Dose: 12.5 mg Insulin Aspart (Novolog) 0 unit SC ACHS [facility] PRN Reason: Protocol Last Admin: 11/27/17 16:54 Dose: Not Given Ketorolac Tromethamine (Toradol) 10 mg PO Q8 PRN PRN Reason: Pain, moderate (4-7) Last Admin: 11/27/17 17:28 Dose: 10 mg Losartan Potassium (Cozaar) 50 mg PO DAILY [facility] Last Admin: 11/27/17 09:46 Dose: 50 mg Montelukast Sodium (Singulair) 10 mg PO DAILY [facility] Last Admin: 11/26/17 09:07 Dose: 10 mg Pantoprazole Sodium (Protonix Ec Tab) 40 mg PO DAILY [facility] Last Admin: 11/27/17 09:46 Dose: 40 mg Sucralfate (Carafate Tab) 1 gm PO PCB [facility] Last Admin: 11/27/17 08:26 Dose: 1 gm - Labs Labs: 11/27/17 08:16 11/27/17 08:16 PT 12.3 SECONDS (9.7-12.2) H 11/24/17 22:10 INR 1.1 11/24/17 22:10 APTT 29 SECONDS (21-34) 11/24/17 22:10 - Constitutional Appears: Well - Head Exam Head Exam: ATRAUMATIC, NORMAL INSPECTION, NORMOCEPHALIC - Eye Exam Eye Exam: EOMI, Normal appearance, PERRL Pupil Exam: NORMAL ACCOMODATION, PERRL - ENT Exam ENT Exam: Mucous Membranes Moist, Normal Exam - Neck Exam Neck Exam: Full ROM, Normal Inspection. absent: Lymphadenopathy - Respiratory Exam Respiratory Exam: Decreased Breath Sounds - Cardiovascular Exam Cardiovascular Exam: REGULAR RHYTHM, +S1, +S2 - GI/Abdominal Exam GI & Abdominal Exam: Soft, Diminished Bowel Sounds - Rectal Exam Rectal Exam: Deferred
--- NOTE | 2017-11-27 22:42 | CARD ---
APPROVED REPORT EKG Measurement Heart [id number] <Conclusion> Normal sinus rhythm Prolonged QT may be artifactual due to poor quality ECG: consider repeat. Abnormal ECG
[2017-11-27] MEDS ORDERED: Potassium Chloride 20 mEq ER Tab PO STA (22:43)
[2017-11-28] MEDS: Simethicone 80 mg Chewtab PO SCH ×5 (00:30→22:55)
[2017-11-28] MEDS: Sucralfate 1 gm/10 ml Oral Susp UD PO SCH ×4 (00:30→18:12)
[2017-11-28] MEDS ORDERED: Bisacodyl 5mg EC Tab PO ONE ×2 (07:07→08:15)
[2017-11-28] MEDS: (Novolog) Insulin Aspart, Recombinant 100 u/ml 10 ml vial SC SCH ×4 (08:00→22:00)
--- NOTE | 2017-11-28 10:36 | PN ---
DATE: LOCATION: [facility], bed B. SUBJECTIVE: This is a 57-year-old female seen and examined for GI consultation on 11/27/2017, reexamined again early today without any significant clinical changes, but complained of lower sternal and mid epigastric pain and discomfort on and off with mild burning sensation. The patient also complaining of constipation, but no reported active bleeding. No reported vomiting, but mild nausea and dyspepsia, about her all the time. The entire chart is reviewed including but not limited to the most recent lab and radiology study results, current and the previous medication list, current and the previous medical events. Today's blood glucose level 91 and the patient reported to have normal amylase, lipase, normal cancer markers including CEA, CA 19-9, and CA 125. Rest of the lab is still pending. The patient's initial CAT scan of the chest showed borderline cardiomegaly, with possible small hiatal hernia, with some enlarged lymph nodes mildly. PHYSICAL EXAMINATION GENERAL: A 57-year-old female, very anxious. VITAL SIGNS: Afebrile, with pulse of 68, respiratory rate of 20 to 22, blood pressure of 110/68. HEENT: Showed pale, dry, oral mucous membranes. Nonicteric sclerae. LUNGS: Few scattered crepitations. Decreased air entry at bases. HEART: Positive S1 and S2. ABDOMEN: Soft with mild distention, with mid epigastric tenderness, and hypoactive bowel sounds. No mass or organomegaly. No rebound tenderness or guarding. EXTREMITIES: Without significant edema, clubbing, or cyanosis. NEUROLOGIC: No reported new neurological deficits, sensory or motor. No reported focal deficits. IMPRESSION: 1. Re-exacerbation of peptic ulcer disease. 2. Known history of but not limited to hypertension, coronary artery disease, atrial fibrillation, with reported history of congestive heart failure, chronic obstructive pulmonary disease, and depression. 3. Known history of diabetes mellitus, the possibility of diabetic gastroparesis versus possible esophageal candidiasis was raised. 4. Known history of hyperlipidemia, status post cholecystectomy, status post chronic coronary stent insertion x2. SUGGESTIONS: 1. Agree with your plan. 2. Increase Colace frequency. 3. tab. 4. No citrus, no seeds. 5. Endoscopic evaluation of upper GI tract when the patient is more stable clinically due to the patient's anemia with decreased indices, it is hypochromic microcytic anemia . 6. It has to be mentioned that initially the patient's serum lipase was elevated to 314 indicative of acute pancreatitis at that time. We will follow up closely with you. Thank you for letting me participate in your patient's case management. Kevin Buenrostro MD
[2017-11-28] MEDS: Pantoprazole 40 mg EC Tab PO SCH (10:42)
[2017-11-28] MEDS: Belladonna-Phenobarbital PO SCH ×3 (10:42→18:22)
[2017-11-28] MEDS: Fluticasone Nasal 50 mcg/Spray NAS SCH ×2 (10:43→22:54)
[2017-11-28] MEDS: Enoxaparin 40 mg Syringe SC SCH (10:43)
[2017-11-28 12:11] LABS: ALBUMIN 3.9 g/dL (3.5-5.0); ALT/SGPT 34 U/L (9-52); AST/SGOT 20 U/L (14-36); BLOOD UREA NITROGEN 17 mg/dL (7-17); CALCIUM 9.4 mg/dl (8.6-10.4); GFR AFRICAN-AMERICAN > 60; GFR NON-AFRICAN AMERICAN > 60
[2017-11-28] MEDS ORDERED: Potassium Chloride 20 mEq ER Tab PO ONE (12:45)
--- NOTE | 2017-11-28 18:12 | CP.PCM.PN ---
Subjective - Date & Time of Evaluation Date of Evaluation: 11/28/17 Time of Evaluation: 12:00 - Subjective Subjective: clinically same Objective - Vital Signs/Intake and Output Vital Signs (last 24 hours): Temp Pulse Resp BP Pulse Ox 97.9 F 64 20 108/74 97 11/28/17 15:24 11/28/17 15:24 11/28/17 15:24 11/28/17 15:24 11/28/17 15:24 - Medications Medications: Current Medications Acetaminophen (Tylenol 325mg Tab) 650 mg PO Q6 PRN PRN Reason: Headache Albuterol (Ventolin Hfa 90 Mcg/Actuation (8 G)) 2 puff IH RQ6 PRN PRN Reason: Cough Belladonna/Phenobarbital () 1 tab PO TID [facility] Last Admin: 11/28/17 13:39 Dose: 1 tab Clonazepam (Klonopin) 1 mg PO TID [facility] Last Admin: 11/28/17 13:39 Dose: 1 mg Diltiazem HCl (Cardizem) 30 mg PO BID [facility] Last Admin: 11/28/17 10:42 Dose: 30 mg Docusate Sodium (Colace) 100 mg PO DAILY [facility] Last Admin: 11/28/17 10:42 Dose: 100 mg Enoxaparin Sodium (Lovenox) 40 mg SC DAILY [facility] Last Admin: 11/28/17 10:43 Dose: 40 mg Fluticasone Propionate (Flonase) 1 spr MARIELENA Q12 [facility] Last Admin: 11/28/17 10:43 Dose: 1 applic Hydrochlorothiazide (Microzide) 12.5 mg PO DAILY [facility] Last Admin: 11/28/17 10:42 Dose: 12.5 mg Insulin Aspart (Novolog) 0 unit SC [facility] PRN Reason: Protocol Last Admin: 11/28/17 17:22 Dose: Not Given Ketorolac Tromethamine (Toradol) 10 mg PO Q8 PRN PRN Reason: Pain, moderate (4-7) Last Admin: 11/28/17 13:48 Dose: 10 mg Lactulose (Enulose) 20 gm PO BID [facility] Last Admin: 11/28/17 10:43 Dose: 20 gm Losartan Potassium (Cozaar) 50 mg PO DAILY [facility] Last Admin: 11/28/17 10:42 Dose: 50 mg Montelukast Sodium (Singulair) 10 mg PO HS [facility] Pantoprazole Sodium (Protonix Ec Tab) 40 mg PO DAILY [facility] Last Admin: 11/28/17 10:42 Dose: 40 mg Simethicone (Mylicon Chew Tab) 40 mg PO QID [facility] Last Admin: 11/28/17 13:39 Dose: 40 mg Sucralfate (Carafate Oral Susp) 1 gm PO Q6 [facility] Last Admin: 11/28/17 12:00 Dose: 1 gm - Labs Labs: 11/27/17 08:16 11/28/17 11:27 PT 12.3 SECONDS (9.7-12.2) H 11/24/17 22:10 INR 1.1 11/24/17 22:10 APTT 29 SECONDS (21-34) 11/24/17 22:10 - Constitutional Appears: Well - Head Exam Head Exam: ATRAUMATIC, NORMAL INSPECTION, NORMOCEPHALIC - Eye Exam Eye Exam: EOMI, Normal appearance, PERRL Pupil Exam: NORMAL ACCOMODATION, PERRL - ENT Exam ENT Exam: Mucous Membranes Moist, Normal Exam - Neck Exam Neck Exam: Full ROM, Normal Inspection. absent: Lymphadenopathy - Respiratory Exam Respiratory Exam: Decreased Breath Sounds - Cardiovascular Exam Cardiovascular Exam: REGULAR RHYTHM, +S1, +S2 - GI/Abdominal Exam GI & Abdominal Exam: Soft, Diminished Bowel Sounds - Rectal Exam Rectal Exam: Deferred
[2017-11-29] MEDS: Sucralfate 1 gm/10 ml Oral Susp UD PO SCH ×4 (00:42→17:51)
[2017-11-29] MEDS: (Novolog) Insulin Aspart, Recombinant 100 u/ml 10 ml vial SC SCH ×4 (08:09→22:15)
--- NOTE | 2017-11-29 08:22 | CON ---
DATE: 11/27/[address] Buenrostro to Dr[address] Idalmis Zuñiga. I was called for GI consultation by the admitting medical team. The patient is seen and fully examined on 11/27/2017 as requested by the admitting medical staff. All the available lab and radiological results, current and previous medication list, current and previous medical events, allergies to medication list as well as all the available current and previous medical record were reviewed. Case discussed with the staff at length on 11/27/2017 before and immediately after my GI consultation. HISTORY OF PRESENT ILLNESS: This is a 57-year-old female who was admitted to the hospital through the emergency room, with the main complaint of some midsternal chest pain, palpitation, which is a recurrent complaint, seen by insurance healthcare consultant. indicating that no significant cardiac abnormalities. However, the patient has a known past medical history of atrial fibrillation with status post ablation before. The patient appears to be extremely anxious, restless, and even during my previous interview to her two days ago, she was crying for no significant reason, has a known history of severe anxiety syndrome. The patient also complained of nausea, dyspepsia, possible abdominal distention on and off. PAST MEDICAL HISTORY: Including but not limited to; 1. Hypertension. 2. Cardiac arrest, atrial fibrillation. 3. Congestive heart failure, coronary artery disease as well as known history of diabetes mellitus with intermittent period of hypoglycemia before. 4. History of hyperlipidemia, osteoarthritis, COPD beside her severe anxiety syndrome. 5. History of cholecystectomy with status post cardiac stent insertion. FAMILY HISTORY: Unknown. SOCIAL HISTORY: Ex-smoker but no recent history of alcohol intake. CURRENT MEDICATIONS: Medication list on both admissions was reviewed. ALLERGY TO MEDICATION: UNCLEAR. LABORATORY DATA: Initial blood workup at admission, showed normal CBC with mild increased BUN but normal creatinine. Again, the patient was seen by the insurance healthcare consultant indicating that there is no significant further aggressive cardiology workup needed at this point. Radiology study results on both admissions are seen and reviewed; reported mildly enlarged lymph node with evidence of mild cardiomegaly. PHYSICAL EXAMINATION: GENERAL: A 57-year-old female, very anxious and restless. VITAL SIGNS: Afebrile with pulse of 94, respiratory rate 20-22, blood pressure 130/78. HEENT: Showed pale, dry oral mucous membrane. Nonicteric sclerae. LYMPH NODES: No lymphadenitis or lymphadenopathy. LUNGS: Few scattered crepitations. Breathing sounds are present bilaterally. HEART: Positive S1 and S2. ABDOMEN: With midepigastric tenderness. No mass or organomegaly. No rebound tenderness or guarding. Mildly obese, mildly distended. RECTAL: Deferred due to the patient's cardiac status. EXTREMITIES: Without significant clubbing, cyanosis or edema. NEUROLOGIC: No reported new neurological deficits, sensory or motor. IMPRESSION: 1. Re-exacerbation of peptic ulcer disease, to rule out esophageal varices or possible esophageal candidiasis in view of such symptoms as persistent dyspepsia and nausea. 2. Severe anxiety syndrome with depression. 3. Multiple past medical history as described above. 4. Noncardiac chest pain, most likely. SUGGESTION: 1. Agree with your plan. 2. Serum lipase, amylase level. 3. tab 1 three times a day. 4. Carafate liquid 10 mL p.o. three times a day. 5. Proton pump inhibitors IV. 6. The patient will need endoscopic evaluation of the upper GI tract, again, the possibility of esophageal candidiasis due to the patient's known history of diabetes mellitus should be ruled in or out versus diabetic gastroparesis. Case discussed with the staff at length. Thank you for letting me participate in your patient's case management. Kevin Buenrostro MD
[2017-11-29] MEDS ORDERED: Potassium Chloride 20 mEq/15 ml LIQ UD PO ONE (09:00)
[2017-11-29] MEDS: Simethicone 80 mg Chewtab PO SCH ×4 (09:04→22:07)
[2017-11-29] MEDS: Belladonna-Phenobarbital PO SCH ×3 (09:04→17:52)
[2017-11-29] MEDS: Enoxaparin 40 mg Syringe SC SCH (09:05)
[2017-11-29] MEDS: Pantoprazole 40 mg EC Tab PO SCH (09:05)
[2017-11-29] MEDS: Fluticasone Nasal 50 mcg/Spray NAS SCH ×2 (10:41→22:05)
--- NOTE | 2017-11-29 11:22 | PN ---
DATE: 11/29/2017 LOCATION: 669, bed B. SUBJECTIVE: This is a 57-year-old female seen very early at rounds today, appeared to be somewhat sleepy with reported normal sinus rhythm in the photo technologist with intermittent period of lower midsternal and epigastric discomfort with nausea but no reported active bleeding, shortness of breath, chills, or fever. The entire chart is reviewed including, but not limited to, the most recent lab and radiology study results, current and the previous medication list, current and the previous medical events. Recent blood workup showed blood glucose level today of 102 but with low potassium of 3.4 with normal cancer markers. No reported significant clinical changes have persisted. PHYSICAL EXAMINATION: GENERAL: A 57-year-old female. VITAL SIGNS: Afebrile with pulse of 64, respiratory rate of 20 to 22, blood pressure 112/64. HEENT: Showed pale, dry oral mucous membranes. Mildly nonicteric sclerae. LUNGS: Few scattered crepitations. Decreased air entry at bases. HEART: Positive S1 and S2. ABDOMEN: Soft, slightly obese with slight generalized tenderness but mainly midepigastric and mid abdominal line. No mass or organomegaly. No rebound tenderness or guarding. EXTREMITIES: Without significant clubbing, cyanosis, or edema. NEUROLOGIC: No reported new neurological deficits, sensory or motor. No focal deficits reported. IMPRESSION: 1. Re-exacerbation of peptic ulcer, to rule out esophageal candidiasis. 2. Chest pain, noncardiac. 3. Known history of, but not limited to, atrial fibrillation, coronary artery disease, status post cardiac stent insertion by history. 4. Known history of hyperlipidemia, status post cholecystectomy, diabetes mellitus with possible gastroparesis. 5. Known history of chronic obstructive pulmonary disease. 6. Depression with known history of severe anxiety syndrome. SUGGESTIONS: 1. Continue current management. 2. Add potassium chloride p.o. due to low potassium. 3. The patient for upper endoscopy at a.m. 4. Further recommendation to follow. MD Kevin Luna [id number]
--- NOTE | 2017-11-29 14:52 | CP.PCM.PN ---
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 Rodriguez only Consult for cardiology changed to Dr. Rodriguez I will sign off. Thank you Objective - Vital Signs/Intake and Output Vital Signs (last 24 hours): Temp Pulse Resp BP Pulse Ox 97.9 F 62 20 110/63 94 L 11/29/17 09:06 11/29/17 09:06 11/29/17 09:06 11/29/17 09:06 11/29/17 09:06 - Medications Medications: Current Medications Acetaminophen (Tylenol 325mg Tab) 650 mg PO Q6 PRN PRN Reason: Headache Albuterol (Ventolin Hfa 90 Mcg/Actuation (8 G)) 2 puff IH RQ6 PRN PRN Reason: Cough Belladonna/Phenobarbital () 1 tab PO TID [facility] Last Admin: 11/29/17 14:19 Dose: 1 tab Clonazepam (Klonopin) 1 mg PO TID [facility] Last Admin: 11/29/17 14:19 Dose: 1 mg Diltiazem HCl (Cardizem) 30 mg PO BID [facility] Last Admin: 11/29/17 09:03 Dose: 30 mg Docusate Sodium (Colace) 100 mg PO DAILY [facility] Last Admin: 11/29/17 09:03 Dose: 100 mg Enoxaparin Sodium (Lovenox) 40 mg SC DAILY [facility] Last Admin: 11/29/17 09:05 Dose: 40 mg Fluticasone Propionate (Flonase) 1 spr MARIELENA Q12 [facility] Last Admin: 11/29/17 10:41 Dose: 1 applic Hydrochlorothiazide (Microzide) 12.5 mg PO DAILY [facility] Last Admin: 11/29/17 09:03 Dose: 12.5 mg Insulin Aspart (Novolog) 0 unit SC ACHS [facility] PRN Reason: Protocol Last Admin: 11/29/17 12:28 Dose: Not Given Ketorolac Tromethamine (Toradol) 10 mg PO Q8 PRN PRN Reason: Pain, moderate (4-7) Last Admin: 11/28/17 22:56 Dose: 10 mg Lactulose (Enulose) 20 gm PO BID [facility] Last Admin: 11/29/17 10:41 Dose: 20 gm Losartan Potassium (Cozaar) 50 mg PO DAILY [facility] Last Admin: 11/29/17 09:03 Dose: 50 mg Montelukast Sodium (Singulair) 10 mg PO HS [facility] Last Admin: 11/28/17 22:55 Dose: 10 mg Pantoprazole Sodium (Protonix Ec Tab) 40 mg PO DAILY [facility] Last Admin: 11/29/17 09:05 Dose: 40 mg Simethicone (Mylicon Chew Tab) 40 mg PO QID [facility] Last Admin: 11/29/17 14:19 Dose: 40 mg Sucralfate (Carafate Oral Susp) 1 gm PO Q6 [facility] Last Admin: 11/29/17 12:15 Dose: 1 gm - Labs Labs: 11/27/17 08:16 11/28/17 11:27 PT 12.3 SECONDS (9.7-12.2) H 11/24/17 22:10 INR 1.1 11/24/17 22:10 APTT 29 SECONDS (21-34) 11/24/17 22:10
--- NOTE | 2017-11-29 15:20 | CP.PCM.PN ---
Subjective - Date & Time of Evaluation Date of Evaluation: 11/29/17 Time of Evaluation: 11:40 - Subjective Subjective: clinically same Objective - Vital Signs/Intake and Output Vital Signs (last 24 hours): Temp Pulse Resp BP Pulse Ox 97.9 F 62 20 110/63 94 L 11/29/17 09:06 11/29/17 09:06 11/29/17 09:06 11/29/17 09:06 11/29/17 09:06 - Medications Medications: Current Medications Acetaminophen (Tylenol 325mg Tab) 650 mg PO Q6 PRN PRN Reason: Headache Albuterol (Ventolin Hfa 90 Mcg/Actuation (8 G)) 2 puff IH RQ6 PRN PRN Reason: Cough Belladonna/Phenobarbital () 1 tab PO TID [facility] Last Admin: 11/29/17 14:19 Dose: 1 tab Clonazepam (Klonopin) 1 mg PO TID [facility] Last Admin: 11/29/17 14:19 Dose: 1 mg Docusate Sodium (Colace) 100 mg PO DAILY [facility] Last Admin: 11/29/17 09:03 Dose: 100 mg Enoxaparin Sodium (Lovenox) 40 mg SC DAILY [facility] Last Admin: 11/29/17 09:05 Dose: 40 mg Fluticasone Propionate (Flonase) 1 spr MARIELENA Q12 [facility] Last Admin: 11/29/17 10:41 Dose: 1 applic Hydrochlorothiazide (Microzide) 12.5 mg PO DAILY [facility] Last Admin: 11/29/17 09:03 Dose: 12.5 mg Insulin Aspart (Novolog) 0 unit SC A[facility]S [facility] PRN Reason: Protocol Last Admin: 11/29/17 12:28 Dose: Not Given Ketorolac Tromethamine (Toradol) 10 mg PO Q8 PRN PRN Reason: Pain, moderate (4-7) Last Admin: 11/28/17 22:56 Dose: 10 mg Lactulose (Enulose) 20 gm PO BID [facility] Last Admin: 11/29/17 10:41 Dose: 20 gm Losartan Potassium (Cozaar) 50 mg PO DAILY [facility] Last Admin: 11/29/17 09:03 Dose: 50 mg Montelukast Sodium (Singulair) 10 mg PO HS [facility] Last Admin: 11/28/17 22:55 Dose: 10 mg Pantoprazole Sodium (Protonix Ec Tab) 40 mg PO DAILY [facility] Last Admin: 11/29/17 09:05 Dose: 40 mg Propranolol HCl (Inderal) 5 mg PO TID [facility] Simethicone (Mylicon Chew Tab) 40 mg PO QID [facility] Last Admin: 11/29/17 14:19 Dose: 40 mg Sucralfate (Carafate Oral Susp) 1 gm PO Q6 [facility] Last Admin: 11/29/17 12:15 Dose: 1 gm - Labs Labs: 11/27/17 08:16 11/28/17 11:27 PT 12.3 SECONDS (9.7-12.2) H 11/24/17 22:10 INR 1.1 11/24/17 22:10 APTT 29 SECONDS (21-34) 11/24/17 22:10 - Constitutional Appears: Well - Head Exam Head Exam: ATRAUMATIC, NORMAL INSPECTION, NORMOCEPHALIC - Eye Exam Eye Exam: EOMI, Normal appearance, PERRL Pupil Exam: NORMAL ACCOMODATION, PERRL - ENT Exam ENT Exam: Mucous Membranes Moist, Normal Exam - Neck Exam Neck Exam: Full ROM, Normal Inspection. absent: Lymphadenopathy - Respiratory Exam Respiratory Exam: Decreased Breath Sounds - Cardiovascular Exam Cardiovascular Exam: REGULAR RHYTHM, +S1, +S2 - GI/Abdominal Exam GI & Abdominal Exam: Soft, Diminished Bowel Sounds - Rectal Exam Rectal Exam: Deferred
[2017-11-29] MEDS: Propranolol 5 mg Tab PO SCH (17:52)
[2017-11-30] MEDS: Sucralfate 1 gm/10 ml Oral Susp UD PO SCH ×4 (00:11→17:03)
[2017-11-30] MEDS: (Novolog) Insulin Aspart, Recombinant 100 u/ml 10 ml vial SC SCH ×4 (07:28→21:48)
[2017-11-30] MEDS ORDERED: Dextrose 5%/0.45% NS 1,000 ML IV SCH (08:15)
--- NOTE | 2017-11-30 09:26 | CP.PCM.CON ---
History of Present Illness - History of Present Illness History of Present Illness: 57 y/o woman who HPI: 56 year old female with the following chronic medical problems 1. Depression/Anxiety: sees a psychiatrist at [facility] 2. Chronic HTN, 3. DM 4. 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 ALL OF THE EPISODES OF PALPITATIONS AND CHEST PAIN SHE REPORTED DURING THE STUDY ARE ASSOCIATED WITH NSR. PSHX: No CABG FAMHX: No Prematures ASHD or sudden in mother or father. SOCHX: No tobacco Review of Systems - Review of Systems All systems: reviewed and no additional remarkable complaints except Past Patient History - Infectious Disease Hx of Infectious Diseases: None - Tetanus Immunizations Tetanus Immunization: Unknown - Past Medical History & Family History Past Medical History?: Yes - Past Social History Smoking Status: Former Smoker - CARDIAC Hx Atrial Fibrillation: Yes Hx Cardia Arrhythmia: Yes Hx Congestive Heart Failure: Yes Hx Hypercholesterolemia: Yes Hx Hypertension: Yes - PULMONARY Hx Chronic Obstructive Pulmonary Disease (COPD): Yes - NEUROLOGICAL Hx Neurological Disorder: Yes HX Cerebrovascular Accident: Yes Hx Dizziness: Yes - HEENT Hx HEENT Problems: Yes Other/Comment: wears glasses for reading - RENAL Hx Chronic Kidney Disease: No - ENDOCRINE/METABOLIC Hx Endocrine Disorders: Yes Hx Diabetes Mellitus Type 1: Yes - HEMATOLOGICAL/ONCOLOGICAL Hx Blood Disorders: No - INTEGUMENTARY Hx Dermatological Problems: Yes Hx Eczema: Yes - MUSCULOSKELETAL/RHEUMATOLOGICAL Hx Arthritis: Yes (hands) - GASTROINTESTINAL Hx Gall Bladder Disease: Yes Hx Gastritis: Yes - GENITOURINARY/GYNECOLOGICAL Hx Genitourinary Disorders: No - PSYCHIATRIC Hx Anxiety: Yes Hx Depression: Yes Hx Substance Use: No - SURGICAL HISTORY Hx Cholecystectomy: Yes Hx Coronary Stent: Yes (x2) Other/Comment: no further information provided - ANESTHESIA Hx Anesthesia: Yes Hx Anesthesia Reactions: No Meds Allergies/Adverse Reactions: Allergies Allergy/AdvReac Type Severity Reaction Status Date / Time escitalopram [From Lexapro] AdvReac ANAPHYLAXIS Verified 08/10/17 16:23 Flu vaccine Allergy ANAPHYLAXIS Uncoded 08/10/17 16:23 pnuemonia vaccine Allergy ANAPHYLAXIS Uncoded 08/10/17 16:23 wool Allergy ANAPHYLAXIS Uncoded 08/10/17 16:23 - Medications Medications: Current Medications Acetaminophen (Tylenol 325mg Tab) 650 mg PO Q6 PRN PRN Reason: Headache Albuterol (Ventolin Hfa 90 Mcg/Actuation (8 G)) 2 puff IH RQ6 PRN PRN Reason: Cough Belladonna/Phenobarbital () 1 tab PO TID [facility] Last Admin: 11/29/17 17:52 Dose: 1 tab Clonazepam (Klonopin) 1 mg PO TID [facility] Last Admin: 11/29/17 17:53 Dose: 1 mg Docusate Sodium (Colace) 100 mg PO DAILY [facility] Last Admin: 11/29/17 09:03 Dose: 100 mg Enoxaparin Sodium (Lovenox) 40 mg SC DAILY [facility] Last Admin: 11/29/17 09:05 Dose: 40 mg Fluticasone Propionate (Flonase) 1 spr MARIELENA Q12 [facility] Last Admin: 11/29/17 22:05 Dose: 1 applic Hydrochlorothiazide (Microzide) 12.5 mg PO DAILY [facility] Last Admin: 11/29/17 09:03 Dose: 12.5 mg Dextrose/Sodium Chloride (Dextrose 5%/0.45% Ns 1000 Ml) 1,000 mls @ 50 mls/hr IV .Q20H [facility] Last Admin: 11/30/17 08:15 Dose: 50 mls/hr Insulin Aspart (Novolog) 0 unit SC ACHS [facility] PRN Reason: Protocol Last Admin: 11/30/17 07:28 Dose: Not Given Lactulose (Enulose) 20 gm PO BID [facility] Last Admin: 11/29/17 17:52 Dose: Not Given Losartan Potassium (Cozaar) 50 mg PO DAILY [facility] Last Admin: 11/29/17 09:03 Dose: 50 mg Montelukast Sodium (Singulair) 10 mg PO HS [facility] Last Admin: 11/29/17 22:08 Dose: 10 mg Pantoprazole Sodium (Protonix Ec Tab) 40 mg PO DAILY [facility] Last Admin: 11/29/17 09:05 Dose: 40 mg Propranolol HCl (Inderal) 5 mg PO TID [facility] Last Admin: 11/29/17 17:52 Dose: 5 mg Simethicone (Mylicon Chew Tab) 40 mg PO QID [facility] Last Admin: 11/29/17 22:07 Dose: 40 mg Sucralfate (Carafate Oral Susp) 1 gm PO Q6 [facility] Last Admin: 11/30/17 06:32 Dose: Not Given Physical Exam - Constitutional Appears: No Acute Distress - Head Exam Head Exam: ATRAUMATIC, NORMAL INSPECTION, NORMOCEPHALIC - Eye Exam Eye Exam: EOMI, Normal appearance, PERRL - ENT Exam ENT Exam: Mucous Membranes Moist, Normal Oropharynx - Respiratory Exam Respiratory Exam: Clear to Auscultation Bilateral, NORMAL BREATHING PATTERN. absent: Rhonchi, Wheezes - Cardiovascular Exam Cardiovascular Exam: REGULAR RHYTHM, +S1, +S2. absent: +S4, Systolic Murmur - GI/Abdominal Exam GI & Abdominal Exam: Normal Bowel Sounds, Soft. absent: Tenderness - Extremities Exam Extremities exam: Positive for: normal inspection, pedal pulses present. Negative for: calf tenderness, pedal edema - Neurological Exam Neurological exam: Alert, Oriented x3 - Psychiatric Exam Psychiatric exam: Anxious - Skin Skin Exam: Normal Color, Warm Results - Vital Signs Recent Vital Signs: Last Vital Signs Temp 97.9 F 11/30/17 08:07 Pulse 72 11/30/17 08:07 Resp 20 11/30/17 08:07 BP 131/86 11/30/17 08:07 Pulse Ox 97 11/30/17 08:07 - Labs Result Diagrams: 11/27/17 08:16 11/28/17 11:27 Labs: Laboratory Results - last 24 hr 11/29/17 11/29/17 11/29/17 06:19 11:43 16:44 POC Glucose (mg/dL) 86 109 105 11/29/17 11/30/17 11/30/17 21:35 02:11 06:31 POC Glucose (mg/dL) 94 105 82 11/30/17 11/30/17 07:47 09:05 POC Glucose (mg/dL) 99 91 - EKG Data EKG Interpreted by: Myself Assessment & Plan - Assessment and Plan (Free Text) Assessment: Palpitation > EKG 11/24/17, 11/26/17, 11/27/17: directly reviewed by me: NSR, no acute ischemic changes > Troponin negative x3 > Normal renal function > mild anemia with low MCV > pulse rate recorded since 11/24/17: HR is <100 (normal range) * Known normal LVEF, non-obstructive coronaries by cath, hx of AVNRT ablation in past and subsequent negative EP study for any malignant arrythmia. * Multiple holter/event recordings as outpatinet suggest NSR despite reported palpitation Plan: Cont propranalol, hydration, reassurance, Rx for anxiety. Patient is acceptable to proceed with EGD; hiatal hernia/reflux may mimic palpitation
[2017-11-30] MEDS: Belladonna-Phenobarbital PO SCH ×3 (11:01→17:04)
[2017-11-30] MEDS: Propranolol 5 mg Tab PO SCH ×3 (11:02→17:03)
[2017-11-30] MEDS: Simethicone 80 mg Chewtab PO SCH ×4 (11:02→21:36)
[2017-11-30] MEDS ORDERED: Midazolam 2 MG/2 ML VIAL ONE (11:41)
[2017-11-30] MEDS ORDERED: Propofol 10 mg/ml Inj (20 ML) ONE (11:41)
--- NOTE | 2017-11-30 12:48 | CP.PCM.PN ---
Subjective - Date & Time of Evaluation Date of Evaluation: 11/30/17 Time of Evaluation: 10:39 - Subjective Subjective: PGY 2 Medicine Note- Dr. Idalmis Zuñiga's service Patient seen and examined. Patient due to go for EGD today. Patient states that she has had a difficult time in the hospital thus far. She states that she has been having palpitations for quite some time and is unsure of the cause. She states that she has seen many different cardiologists (in-house) and wishes that she did not have to. She otherwise admits to abdominal discomfort, some pressure and occasional palpitations. Objective - Vital Signs/Intake and Output Vital Signs (last 24 hours): Temp Pulse Resp BP Pulse Ox 97.8 F 63 14 113/67 100 11/30/17 12:05 11/30/17 12:35 11/30/17 12:35 11/30/17 12:35 11/30/17 12:35 Intake and Output: 11/30/17 11/30/17 06:59 18:59 Intake Total 300 Balance 300 - Medications Medications: Current Medications Acetaminophen (Tylenol 325mg Tab) 650 mg PO Q6 PRN PRN Reason: Headache Albuterol (Ventolin Hfa 90 Mcg/Actuation (8 G)) 2 puff IH RQ6 PRN PRN Reason: Cough Belladonna/Phenobarbital () 1 tab PO TID [facility] Last Admin: 11/30/17 11:01 Dose: Not Given Clonazepam (Klonopin) 1 mg PO TID [facility] Last Admin: 11/30/17 11:02 Dose: Not Given Docusate Sodium (Colace) 100 mg PO DAILY [facility] Last Admin: 11/29/17 09:03 Dose: 100 mg Enoxaparin Sodium (Lovenox) 40 mg SC DAILY [facility] Last Admin: 11/29/17 09:05 Dose: 40 mg Fluticasone Propionate (Flonase) 1 spr MARIELENA Q12 [facility] Last Admin: 11/29/17 22:05 Dose: 1 applic Hydrochlorothiazide (Microzide) 12.5 mg PO DAILY [facility] Last Admin: 11/29/17 09:03 Dose: 12.5 mg Dextrose/Sodium Chloride (Dextrose 5%/0.45% Ns 1000 Ml) 1,000 mls @ 50 mls/hr IV .Q20H [facility] Last Admin: 11/30/17 08:15 Dose: 50 mls/hr Insulin Aspart (Novolog) 0 unit SC ACHS [facility] PRN Reason: Protocol Last Admin: 11/30/17 11:02 Dose: Not Given Lactulose (Enulose) 20 gm PO BID [facility] Last Admin: 11/30/17 11:02 Dose: Not Given Losartan Potassium (Cozaar) 50 mg PO DAILY [facility] Last Admin: 11/29/17 09:03 Dose: 50 mg Metoclopramide HCl (Reglan) 5 mg IVP Q6H [facility] Montelukast Sodium (Singulair) 10 mg PO HS [facility] Last Admin: 11/29/17 22:08 Dose: 10 mg Pantoprazole Sodium (Protonix Ec Tab) 40 mg PO DAILY [facility] Last Admin: 11/29/17 09:05 Dose: 40 mg Propranolol HCl (Inderal) 5 mg PO TID [facility] Last Admin: 11/30/17 11:02 Dose: Not Given Simethicone (Mylicon Chew Tab) 40 mg PO QID [facility] Last Admin: 11/30/17 11:02 Dose: Not Given Sucralfate (Carafate Oral Susp) 1 gm PO Q6 [facility] Last Admin: 11/30/17 11:01 Dose: Not Given - Labs Labs: 11/27/17 08:16 11/28/17 11:27 PT 12.3 SECONDS (9.7-12.2) H 11/24/17 22:10 INR 1.1 11/24/17 22:10 APTT 29 SECONDS (21-34) 11/24/17 22:10 - Constitutional Appears: Non-toxic, No Acute Distress - Head Exam Head Exam: ATRAUMATIC, NORMAL INSPECTION, NORMOCEPHALIC - Eye Exam Eye Exam: EOMI, Normal appearance, PERRL Pupil Exam: NORMAL ACCOMODATION - ENT Exam ENT Exam: Mucous Membranes Moist - Neck Exam Neck Exam: Full ROM - Respiratory Exam Respiratory Exam: absent: Wheezes - Cardiovascular Exam Cardiovascular Exam: +S1, +S2 - GI/Abdominal Exam GI & Abdominal Exam: Soft, Tenderness (diffusely), Normal Bowel Sounds - Extremities Exam Extremities Exam: Full ROM, Normal Capillary Refill, Normal Inspection. absent : Tenderness - Back Exam Back Exam: Full ROM - Neurological Exam Neurological Exam: Alert, Awake, Oriented x3 - Psychiatric Exam Psychiatric exam: Normal Affect, Normal Mood - Skin Skin Exam: Dry, Normal Color, Warm Assessment and Plan - Assessment and Plan (Free Text) Assessment: Palpitations -Initial chest pain on admission -EKG shows no axis deviation, no acute ST changes -Troponin negative X3 -Normal Cardiac cath in 2017 -CT chest showed borderline Cardiomegaly (see report) -ASA 325mg -Cardiology consulted, Dr. Farrell on the case. - Patient has had extensive workup within the last year- ruling out ischemic causes of chest pain. Abdominal pain -F/U GI recommendations- EGD 11/30 Results: LA grade B non-bleeding esophagitis noted; evidence of spasm; scattered inflammation, erosions and erythema noted in entire stomach. Biopsies taken. Hiatal hernia noted. Normal duodenum. Refer to complete report. PAtient to have abdominal ultrasound. Antireflux therapy, reglan and sucralfate to be initiated if not already on board. -Dulcolax, colace, carafate -Lipase normal at 259 DM -A1C 5.4 06/2017. F/U Hgb A1c -ISS -Hold oral diabetes meds due to poor oral intake -Accuchecks ACHS COPD -continue Ventolin PRN -Singulair 10mg po Hypertension -HCTZ 12.5mg -Losartan 50mg po -Propranolol 10mg po History of Anxiety -Klonopin 1mg PO TID Prophylactic Measure -Lovenox -Protonix -SCDs Discussed with attending physician All management per Dr. Zuñiga
[2017-11-30] MEDS: Fluticasone Nasal 50 mcg/Spray NAS SCH (14:10)
[2017-11-30] MEDS: Pantoprazole 40 mg EC Tab PO SCH (14:11)
[2017-11-30] MEDS: Enoxaparin 40 mg Syringe SC SCH (14:11)
--- NOTE | 2017-11-30 14:20 | CP.PCM.PN ---
Subjective - Date & Time of Evaluation Date of Evaluation: 11/30/17 Time of Evaluation: 11:00 - Subjective Subjective: clinically same Objective - Vital Signs/Intake and Output Vital Signs (last 24 hours): Temp Pulse Resp BP Pulse Ox 97.8 F 63 14 113/67 100 11/30/17 12:05 11/30/17 12:35 11/30/17 12:35 11/30/17 12:35 11/30/17 12:35 Intake and Output: 11/30/17 11/30/17 06:59 18:59 Intake Total 300 Balance 300 - Medications Medications: Current Medications Acetaminophen (Tylenol 325mg Tab) 650 mg PO Q6 PRN PRN Reason: Headache Albuterol (Ventolin Hfa 90 Mcg/Actuation (8 G)) 2 puff IH RQ6 PRN PRN Reason: Cough Belladonna/Phenobarbital () 1 tab PO TID [facility] Last Admin: 11/30/17 11:01 Dose: Not Given Clonazepam (Klonopin) 1 mg PO TID [facility] Last Admin: 11/30/17 11:02 Dose: Not Given Docusate Sodium (Colace) 100 mg PO DAILY [facility] Last Admin: 11/29/17 09:03 Dose: 100 mg Enoxaparin Sodium (Lovenox) 40 mg SC DAILY [facility] Last Admin: 11/29/17 09:05 Dose: 40 mg Fluticasone Propionate (Flonase) 1 spr MARIELENA Q12 [facility] Last Admin: 11/29/17 22:05 Dose: 1 applic Hydrochlorothiazide (Microzide) 12.5 mg PO DAILY [facility] Last Admin: 11/29/17 09:03 Dose: 12.5 mg Dextrose/Sodium Chloride (Dextrose 5%/0.45% Ns 1000 Ml) 1,000 mls @ 50 mls/hr IV .Q20H [facility] Last Admin: 11/30/17 08:15 Dose: 50 mls/hr Insulin Aspart (Novolog) 0 unit SC ACHS [facility] PRN Reason: Protocol Last Admin: 11/30/17 11:02 Dose: Not Given Lactulose (Enulose) 20 gm PO BID [facility] Last Admin: 11/30/17 11:02 Dose: Not Given Losartan Potassium (Cozaar) 50 mg PO DAILY [facility] Last Admin: 11/29/17 09:03 Dose: 50 mg Metoclopramide HCl (Reglan) 5 mg IVP Q6H [facility] Montelukast Sodium (Singulair) 10 mg PO HS [facility] Last Admin: 11/29/17 22:08 Dose: 10 mg Pantoprazole Sodium (Protonix Ec Tab) 40 mg PO DAILY [facility] Last Admin: 11/29/17 09:05 Dose: 40 mg Propranolol HCl (Inderal) 5 mg PO TID [facility] Last Admin: 11/30/17 11:02 Dose: Not Given Simethicone (Mylicon Chew Tab) 40 mg PO QID [facility] Last Admin: 11/30/17 14:07 Dose: 40 mg Sucralfate (Carafate Oral Susp) 1 gm PO Q6 [facility] Last Admin: 11/30/17 11:01 Dose: Not Given - Labs Labs: 11/27/17 08:16 11/28/17 11:27 PT 12.3 SECONDS (9.7-12.2) H 11/24/17 22:10 INR 1.1 11/24/17 22:10 APTT 29 SECONDS (21-34) 11/24/17 22:10 - Constitutional Appears: Well - Head Exam Head Exam: ATRAUMATIC, NORMAL INSPECTION, NORMOCEPHALIC - Eye Exam Eye Exam: EOMI, Normal appearance, PERRL Pupil Exam: NORMAL ACCOMODATION, PERRL - ENT Exam ENT Exam: Mucous Membranes Moist, Normal Exam - Neck Exam Neck Exam: Full ROM, Normal Inspection. absent: Lymphadenopathy - Respiratory Exam Respiratory Exam: Decreased Breath Sounds - Cardiovascular Exam Cardiovascular Exam: REGULAR RHYTHM, +S1, +S2 - GI/Abdominal Exam GI & Abdominal Exam: Soft, Diminished Bowel Sounds - Rectal Exam Rectal Exam: Deferred
[2017-12-01] MEDS: Sucralfate 1 gm/10 ml Oral Susp UD PO SCH ×4 (00:24→17:26)
[2017-12-01 01:22] VITALS: RESP 20
[2017-12-01 07:49] LABS: BASO # 0.1 K/uL (0.0-0.2); EOS # 0.4 K/uL (0.0-0.7); EOS % 7.1 % (0.0-4.0); HEMOGLOBIN 10.8 g/dL (11.0-16.0); LYMPH # 2.2 K/uL (1.0-4.3); LYMPH % 37.9 % (20.0-40.0); MEAN CELL VOLUME 78.5 fL (81.0-99.0); MEAN CORPUSCULAR HEMOGLOBIN 26.4 pg (27.0-31.0); MEAN CORPUSCULAR HGB CONC 33.6 g/dL (33.0-37.0); MEAN PLATELET VOLUME 8.5 fL (7.2-11.7); MONO # 0.3 K/uL (0.0-0.8); MONO % 5.8 % (0.0-10.0); NEUT # 2.7 K/uL (1.8-7.0); NEUT % 48.2 % (50.0-75.0); NRBC % 0.1 % (0.0-2.0); RBC 4.1 Mil/uL (3.80-5.20); RED CELL DISTRIBUTION WIDTH 16.2 % (11.5-14.5); WHITE BLOOD COUNT 5.7 K/uL (4.8-10.8)
[2017-12-01] MEDS: (Novolog) Insulin Aspart, Recombinant 100 u/ml 10 ml vial SC SCH ×4 (08:05→22:00)
[2017-12-01 08:10] LABS: ALBUMIN 3.6 g/dL (3.5-5.0); ALT/SGPT 22 U/L (9-52); AST/SGOT 17 U/L (14-36); BLOOD UREA NITROGEN 16 mg/dL (7-17); GFR AFRICAN-AMERICAN > 60; GFR NON-AFRICAN AMERICAN > 60
[2017-12-01] MEDS: Belladonna-Phenobarbital PO SCH ×3 (10:22→17:26)
[2017-12-01] MEDS: Fluticasone Nasal 50 mcg/Spray NAS SCH ×2 (10:23→22:00)
[2017-12-01] MEDS: Propranolol 5 mg Tab PO SCH ×3 (10:24→17:27)
[2017-12-01] MEDS: Enoxaparin 40 mg Syringe SC SCH (10:24)
[2017-12-01] MEDS: Pantoprazole 40 mg EC Tab PO SCH (10:27)
[2017-12-01] MEDS: Simethicone 80 mg Chewtab PO SCH ×4 (10:48→22:58)
--- NOTE | 2017-12-01 12:29 | CARD ---
APPROVED REPORT EKG Measurement Heart [id number] <Conclusion> Normal sinus rhythm Nonspecific ST abnormality V1 - V2 may be normal variant Borderline ECG
--- NOTE | 2017-12-01 15:17 | CP.PCM.PN ---
Subjective - Date & Time of Evaluation Date of Evaluation: 12/01/17 Time of Evaluation: 08:00 - Subjective Subjective: PGY 2 Medicine Note- Dr. Idalmis Zuñiga's service Patient seen and examined. Patient states that she has had a difficult time in the hospital thus far. She states that she has been having palpitations for quite some time and is unsure of the cause. She is upset that her medications keep chaning and she was crying this morning that she was afraid she would miss a family member's graduation in December. She states that she has seen many different cardiologists (in-house) and wishes that she did not have to. She otherwise admits to abdominal discomfort, some pressure and occasional palpitations. She reports that she has been unable to eat due to her "stomach issues". Objective - Vital Signs/Intake and Output Vital Signs (last 24 hours): Temp Pulse Resp BP Pulse Ox 98.1 F 77 20 123/79 96 12/01/17 08:58 12/01/17 08:58 12/01/17 08:58 12/01/17 08:58 12/01/17 08:58 - Medications Medications: Current Medications Acetaminophen (Tylenol 325mg Tab) 650 mg PO Q6 PRN PRN Reason: Headache Albuterol (Ventolin Hfa 90 Mcg/Actuation (8 G)) 2 puff IH RQ6 PRN PRN Reason: Cough Belladonna/Phenobarbital () [address] [facility] Last Admin: 12/01/17 13:42 Dose: 1 tab Clonazepam (Klonopin) [address] [facility] Last Admin: 12/01/17 13:43 Dose: 1 mg Docusate Sodium (Colace) [address] [facility] Last Admin: 12/01/17 10:21 Dose: 100 mg Enoxaparin Sodium (Lovenox) [address] [facility] Last Admin: 12/01/17 10:24 Dose: 40 mg Fluticasone Propionate (Flonase) [address] [facility] Last Admin: 12/01/17 10:23 Dose: 1 applic Hydrochlorothiazide (Microzide) 12.[address] [facility] Last Admin: 12/01/17 10:00 Dose: Not Given Dextrose/Sodium Chloride (Dextrose 5%/0.45% Ns 1000 Ml) 1,000 mls @ 50 mls/hr IV .Q20H [facility] Last Admin: 11/30/17 08:15 Dose: 50 mls/hr Insulin Aspart (Novolog) [address] [facility] PRN Reason: Protocol Last Admin: 12/01/17 11:43 Dose: Not Given Ketorolac Tromethamine (Toradol) 10 mg PO Q6 PRN PRN Reason: Pain, moderate (4-7) Last Admin: 11/30/17 21:36 Dose: 10 mg Lactulose (Enulose) [address] [facility] Last Admin: 12/01/17 10:23 Dose: Not Given Losartan Potassium (Cozaar) [address] [facility] Last Admin: 12/01/17 10:22 Dose: 50 mg Metoclopramide HCl (Reglan) [address] [facility] Last Admin: 12/01/17 12:01 Dose: 5 mg Montelukast Sodium (Singulair) [address] [facility] Last Admin: 11/30/17 21:36 Dose: 10 mg Pantoprazole Sodium (Protonix Ec Tab) [address] [facility] Last Admin: 12/01/17 10:27 Dose: 40 mg Propranolol HCl (Inderal) [address] [facility] Last Admin: 12/01/17 13:43 Dose: 5 mg Simethicone (Mylicon Chew Tab) [address] [facility] Last Admin: 12/01/17 13:44 Dose: 80 mg Sucralfate (Carafate Oral Susp) [address] [facility] Last Admin: 12/01/17 12:18 Dose: 1 gm - Labs Labs: 12/01/17 07:38 12/01/17 07:38 PT 12.3 SECONDS (9.7-12.2) H 11/24/17 22:10 INR 1.1 11/24/17 22:10 APTT 29 SECONDS (21-34) 11/24/17 22:10 - Constitutional Appears: Non-toxic, No Acute Distress - Head Exam Head Exam: NORMAL INSPECTION - Eye Exam Eye Exam: EOMI Pupil Exam: NORMAL ACCOMODATION - ENT Exam ENT Exam: Mucous Membranes Moist - Respiratory Exam Respiratory Exam: Clear to Ausculation Bilateral, NORMAL BREATHING PATTERN. absent: Respiratory Distress - Cardiovascular Exam Cardiovascular Exam: REGULAR RHYTHM, +S1, +S2 - GI/Abdominal Exam GI & Abdominal Exam: Soft, Normal Bowel Sounds. absent: Distended, Firm, Guarding, Tenderness - Extremities Exam Extremities Exam: Normal Inspection - Back Exam Back Exam: NORMAL INSPECTION. absent: CVA tenderness (L), CVA tenderness (R), paraspinal tenderness - Neurological Exam Neurological Exam: Alert, Awake, CN II-XII Intact, Oriented x3 - Psychiatric Exam Psychiatric exam: Normal Affect, Normal Mood - Skin Skin Exam: Dry, Intact, Normal Color, Warm Assessment and Plan - Assessment and Plan (Free Text) Assessment: Palpitations -Initial chest pain on admission -EKG shows no axis deviation, no acute ST changes -Troponin negative X3 -Normal Cardiac cath in 2017 -CT chest showed borderline Cardiomegaly (see report) -ASA 325mg -Cardiology consulted, Dr. Farrell on the case. - Patient has had extensive workup within the last year- ruling out ischemic causes of chest pain. - Inderal 5mg PO TID Abdominal pain -F/U GI recommendations- EGD 11/30 Results: LA grade B non-bleeding esophagitis noted; evidence of spasm; scattered inflammation, erosions and erythema noted in entire stomach. Biopsies taken. Hiatal hernia noted. Normal duodenum. Refer to complete report. PAtient to have abdominal ultrasound. Antireflux therapy, reglan and sucralfate to be initiated if not already on board. -Dulcolax, colace, carafate -Lipase normal at 259 DM -A1C 5.4 06/2017. F/U Hgb A1c -ISS -Hold oral diabetes meds due to poor oral intake -Accuchecks ACHS COPD -continue Ventolin PRN -Singulair 10mg po Hypertension -HCTZ 12.5mg -Losartan 50mg po - Inderal 5mg PO TID History of Anxiety -Klonopin 1mg PO TID Prophylactic Measure -Lovenox -Protonix -SCDs Dispo - patient is not tolerating PO intake Discussed with attending physician All management per Dr. Zuñiga
--- NOTE | 2017-12-01 18:11 | PN ---
DATE: LOCATION: [facility] bed B. SUBJECTIVE: This is a 57-year-old female seen and examined in rounds, without significant clinical changes or reported active bleeding with less complaint of abdominal pain and dyspepsia with complaint of intermittent periods of palpitation. The entire chart is reviewed including, but not limited to the most recent lab and radiology study results, current and the previous medication list, current and the previous medical events. Case discussed with the staff at length. Most recent lab results showed low hemoglobin of 10.8, hematocrit 32.2 with low indices, highly suggests hypochromic microcytic anemia with normal SMA-18. Blood glucose level 85. PHYSICAL EXAMINATION: GENERAL/VITAL SIGNS: A 57-year-old female appeared to be somewhat anxious, alert, awake, afebrile, with a pulse of 74, respiratory rate of 20 to 22, blood pressure 118/76. HEENT: Showed pale, dry oral mucous membranes, nonicteric sclerae. LUNGS: Few scattered crepitations. Decreased air entry at bases. HEART: Positive S1 and S2. ABDOMEN: Soft with mild generalized tenderness. No mass or organomegaly. No rebound tenderness or guarding. EXTREMITIES: Without edema, clubbing, or cyanosis. IMPRESSION: 1. Noncardiac chest pain. 2. Esophagitis, acute gastritis with moderate hernia. 3. Known history of but not limited to atrial fibrillation, coronary artery disease, status post cardiac stent insertion, history of hyperlipidemia, diabetes mellitus, gastroparesis, with status post cholecystectomy. 4. Known history of chronic obstructive pulmonary disease. 5. Depression severe and anxiety syndrome. 6. Anemia, most likely secondary to above. SUGGESTIONS: 1. Agree with your plan. 2. Cardiology reevaluation. 3. Change Bentyl to 10 mg p.o. 3 times a day. 4. Further recommendations to follow. Kevin Buenrostro MD
--- NOTE | 2017-12-01 18:16 | CP.PCM.PN ---
Subjective - Date & Time of Evaluation Date of Evaluation: 12/01/17 Time of Evaluation: 09:00 - Subjective Subjective: clinically same Objective - Vital Signs/Intake and Output Vital Signs (last 24 hours): Temp Pulse Resp BP Pulse Ox 97.8 F 68 20 129/79 98 12/01/17 16:18 12/01/17 16:18 12/01/17 16:18 12/01/17 16:18 12/01/17 16:18 Intake and Output: 12/01/17 12/01/17 06:59 18:59 Intake Total 480 Balance 480 - Medications Medications: Current Medications Acetaminophen (Tylenol 325mg Tab) 650 mg PO Q6 PRN PRN Reason: Headache Albuterol (Ventolin Hfa 90 Mcg/Actuation (8 G)) 2 puff IH RQ6 PRN PRN Reason: Cough Belladonna/Phenobarbital () 1 tab PO TID [facility] Last Admin: 12/01/17 17:26 Dose: 1 tab Clonazepam (Klonopin) 1 mg PO TID [facility] Last Admin: 12/01/17 17:27 Dose: 1 mg Docusate Sodium (Colace) 100 mg PO DAILY [facility] Last Admin: 12/01/17 10:21 Dose: 100 mg Enoxaparin Sodium (Lovenox) 40 mg SC DAILY [facility] Last Admin: 12/01/17 10:24 Dose: 40 mg Fluticasone Propionate (Flonase) 1 spr MARIELENA Q12 [facility] Last Admin: 12/01/17 10:23 Dose: 1 applic Hydrochlorothiazide (Microzide) 12.5 mg PO DAILY [facility] Last Admin: 12/01/17 10:00 Dose: Not Given Dextrose/Sodium Chloride (Dextrose 5%/0.45% Ns 1000 Ml) 1,000 mls @ 50 mls/hr IV .Q20H [facility] Last Admin: 11/30/17 08:15 Dose: 50 mls/hr Insulin Aspart (Novolog) 0 unit SC ACHS [facility] PRN Reason: Protocol Last Admin: 12/01/17 17:12 Dose: Not Given Ketorolac Tromethamine (Toradol) 10 mg PO Q6 PRN PRN Reason: Pain, moderate (4-7) Last Admin: 11/30/17 21:36 Dose: 10 mg Lactulose (Enulose) 20 gm PO BID [facility] Last Admin: 12/01/17 17:26 Dose: Not Given Losartan Potassium (Cozaar) 50 mg PO DAILY [facility] Last Admin: 12/01/17 10:22 Dose: 50 mg Metoclopramide HCl (Reglan) 5 mg IVP Q6H [facility] Last Admin: 12/01/17 17:28 Dose: 5 mg Montelukast Sodium (Singulair) 10 mg PO HS [facility] Last Admin: 11/30/17 21:36 Dose: 10 mg Pantoprazole Sodium (Protonix Ec Tab) 40 mg PO DAILY [facility] Last Admin: 12/01/17 10:27 Dose: 40 mg Propranolol HCl (Inderal) 5 mg PO TID [facility] Last Admin: 12/01/17 17:27 Dose: 5 mg Simethicone (Mylicon Chew Tab) 80 mg PO QID [facility] Last Admin: 12/01/17 17:27 Dose: 80 mg Sucralfate (Carafate Oral Susp) 1 gm PO Q6 [facility] Last Admin: 12/01/17 17:26 Dose: 1 gm - Labs Labs: 12/01/17 07:38 12/01/17 07:38 PT 12.3 SECONDS (9.7-12.2) H 11/24/17 22:10 INR 1.1 11/24/17 22:10 APTT 29 SECONDS (21-34) 11/24/17 22:10 - Constitutional Appears: Well - Head Exam Head Exam: ATRAUMATIC, NORMAL INSPECTION, NORMOCEPHALIC - Eye Exam Eye Exam: EOMI, Normal appearance, PERRL Pupil Exam: NORMAL ACCOMODATION, PERRL - ENT Exam ENT Exam: Mucous Membranes Moist, Normal Exam - Neck Exam Neck Exam: Full ROM, Normal Inspection. absent: Lymphadenopathy - Respiratory Exam Respiratory Exam: Decreased Breath Sounds - Cardiovascular Exam Cardiovascular Exam: REGULAR RHYTHM, +S1, +S2 - GI/Abdominal Exam GI & Abdominal Exam: Soft, Diminished Bowel Sounds - Rectal Exam Rectal Exam: Deferred Assessment and Plan - Assessment and Plan (Free Text) Plan: Palpitations -Initial chest pain on admission -EKG shows no axis deviation, no acute ST changes -Troponin negative X3 -Normal Cardiac cath in 2017 -CT chest showed borderline Cardiomegaly (see report) -ASA 325mg -Cardiology consulted, Dr. Farrell on the case. - Patient has had extensive workup within the last year- ruling out ischemic causes of chest pain. - Inderal 5mg PO TID Abdominal pain -F/U GI recommendations- EGD 11/30 Results: LA grade B non-bleeding esophagitis noted; evidence of spasm; scattered inflammation, erosions and erythema noted in entire stomach. Biopsies taken. Hiatal hernia noted. Normal duodenum. Refer to complete report. PAtient to have abdominal ultrasound. Antireflux therapy, reglan and sucralfate to be initiated if not already on board. -Dulcolax, colace, carafate -Lipase normal at 259 DM -A1C 5.4 06/2017. F/U Hgb A1c -ISS -Hold oral diabetes meds due to poor oral intake -Accuchecks ACHS COPD -continue Ventolin PRN -Singulair 10mg po Hypertension -HCTZ 12.5mg -Losartan 50mg po - Inderal 5mg PO TID History of Anxiety -Klonopin 1mg PO TID Prophylactic Measure -Lovenox -Protonix -SCDs
[2017-12-02] MEDS: Sucralfate 1 gm/10 ml Oral Susp UD PO SCH ×3 (00:02→11:32)
[2017-12-02 08:02] LABS: BASO # 0.1 K/uL (0.0-0.2); EOS # 0.4 K/uL (0.0-0.7); EOS % 7.4 % (0.0-4.0); HEMOGLOBIN 10.6 g/dL (11.0-16.0); LYMPH # 2.2 K/uL (1.0-4.3); LYMPH % 37.9 % (20.0-40.0); MEAN CELL VOLUME 78.2 fL (81.0-99.0); MEAN CORPUSCULAR HEMOGLOBIN 26.3 pg (27.0-31.0); MEAN CORPUSCULAR HGB CONC 33.7 g/dL (33.0-37.0); MEAN PLATELET VOLUME 8.6 fL (7.2-11.7); MONO # 0.4 K/uL (0.0-0.8); MONO % 7.7 % (0.0-10.0); NEUT # 2.6 K/uL (1.8-7.0); NRBC % 0.1 % (0.0-2.0); RBC 4.03 Mil/uL (3.80-5.20); RED CELL DISTRIBUTION WIDTH 15.8 % (11.5-14.5); WHITE BLOOD COUNT 5.7 K/uL (4.8-10.8)
[2017-12-02 08:16] LABS: ALB/GLOB RATIO 0.9 (1.0-2.1); ALBUMIN 3.4 g/dL (3.5-5.0); ALT/SGPT 22 U/L (9-52); AST/SGOT 16 U/L (14-36); BLOOD UREA NITROGEN 15 mg/dL (7-17); CALCIUM 8.7 mg/dl (8.6-10.4); GFR AFRICAN-AMERICAN > 60; GFR NON-AFRICAN AMERICAN > 60
[2017-12-02] MEDS: (Novolog) Insulin Aspart, Recombinant 100 u/ml 10 ml vial SC SCH ×2 (08:28→11:49)
[2017-12-02] MEDS: Fluticasone Nasal 50 mcg/Spray NAS SCH (10:00)
[2017-12-02] MEDS: Belladonna-Phenobarbital PO SCH ×2 (10:00→13:38)
[2017-12-02] MEDS: Enoxaparin 40 mg Syringe SC SCH (10:02)
[2017-12-02] MEDS: Pantoprazole 40 mg EC Tab PO SCH (10:03)
[2017-12-02] MEDS: Simethicone 80 mg Chewtab PO SCH ×2 (10:03→13:38)
[2017-12-02] MEDS: Propranolol 5 mg Tab PO SCH ×2 (10:29→13:38)
--- NOTE | 2017-12-02 12:26 | PN ---
DATE: LOCATION: [facility] bed B. SUBJECTIVE: This is a 57-year-old female seen and examined in rounds post upper endoscopy before without reported significant clinical changes. No reported nausea or vomiting, or hematemesis, but mild chest discomfort, appeared to be very anxious and reporting intermittent periods of palpitations very emotionally. The entire chart is reviewed including, but not limited to the most recent lab and radiology study results, current and the previous medication list, current and the previous medical events, and today's lab showed low hemoglobin 10.6, hematocrit 31.5, with low indices highly suggestive of hypochromic microcytic anemia, blood glucose level 106, albumin 3.3. PHYSICAL EXAMINATION: GENERAL: A 57-year-old female seen and examined with the staff in the floor. VITAL SIGNS: Afebrile, with pulse of 70, respiratory rate of 20 to 22, blood pressure 116/66. HEENT: Showed pale, dry oral mucous membranes, nonicteric sclerae. LUNGS: Few scattered crepitations. Decreased air entry at bases. HEART: Positive S1 and S2. ABDOMEN: Soft with mild generalized tenderness. No mass or organomegaly. No rebound tenderness or guarding. NEUROLOGIC: No reported new neurological deficits, sensory or motor. EXTREMITIES: Without edema, clubbing, or cyanosis. IMPRESSION: 1. Noncardiac chest pain. 2. Peptic ulcer disease with gastritis and esophagitis. 3. Known history of but not limited to coronary artery disease, atrial fibrillation, with status post cardiac stent insertion. 4. Known history of diabetes mellitus, hyperlipidemia, with diabetic gastroparesis, as well as status post cholecystectomy. 5. Reported history of chronic obstructive pulmonary disease. 6. Severe anxiety syndrome with depression. 7. Anemia, most likely secondary to above. SUGGESTIONS: 1. Continue current management. 2. Cardiac reevaluation. 3. Small bowel follow-through. Kevin Buenrostro MD
[2017-12-02 13:37] VITALS: BP 109/78; PULSE 74; TEMP 98.1; O2SAT 97
--- NOTE | 2017-12-02 13:56 | CP.PCM.PN ---
Subjective - Date & Time of Evaluation Date of Evaluation: 12/02/17 Time of Evaluation: 13:53 - Subjective Subjective: PGY2 progress note for Dr. Zuñiga Pt seen and examined at bedside. No acute events overnight. pt continues to complain of palpitations while tele monitor is NSR. Pt also complains of bloating sensation after the EGD procedure. She states that she is tolerating PO intake and having regular BMs and passing gas. Denies having any CP, SOB, N/V /D/C, F/C. Objective - Vital Signs/Intake and Output Vital Signs (last 24 hours): Temp Pulse Resp BP Pulse Ox 98.1 F 74 20 109/78 97 12/02/17 13:37 12/02/17 13:37 12/02/17 13:37 12/02/17 13:37 12/02/17 13:37 - Medications Medications: Current Medications Acetaminophen (Tylenol 325mg Tab) 650 mg PO Q6 PRN PRN Reason: Headache Albuterol (Ventolin Hfa 90 Mcg/Actuation (8 G)) 2 puff IH RQ6 PRN PRN Reason: Cough Belladonna/Phenobarbital () 1 tab PO TID [facility] Last Admin: 12/02/17 13:38 Dose: 1 tab Clonazepam (Klonopin) 1 mg PO TID [facility] Last Admin: 12/02/17 13:39 Dose: 1 mg Docusate Sodium (Colace) 100 mg PO DAILY [facility] Last Admin: 12/02/17 09:58 Dose: 100 mg Fluticasone Propionate (Flonase) 1 spr MARIELENA Q12 [facility] Last Admin: 12/02/17 10:00 Dose: 1 applic Hydrochlorothiazide (Microzide) 12.5 mg PO DAILY [facility] Last Admin: 12/02/17 10:02 Dose: Not Given Dextrose/Sodium Chloride (Dextrose 5%/0.45% Ns 1000 Ml) 1,000 mls @ 50 mls/hr IV .Q20H [facility] Last Admin: 11/30/17 08:15 Dose: 50 mls/hr Insulin Aspart (Novolog) 0 unit SC ACHS [facility] PRN Reason: Protocol Last Admin: 12/02/17 11:49 Dose: Not Given Ketorolac Tromethamine (Toradol) 10 mg PO Q6 PRN PRN Reason: Pain, moderate (4-7) Last Admin: 11/30/17 21:36 Dose: 10 mg Lactulose (Enulose) 20 gm PO BID [facility] Last Admin: 12/02/17 10:00 Dose: Not Given Losartan Potassium (Cozaar) 50 mg PO DAILY [facility] Last Admin: 12/02/17 09:58 Dose: 50 mg Metoclopramide HCl (Reglan) 5 mg PO Q6H [facility] Last Admin: 12/02/17 13:39 Dose: 5 mg Montelukast Sodium (Singulair) 10 mg PO HS [facility] Last Admin: 12/01/17 22:00 Dose: 10 mg Pantoprazole Sodium (Protonix Ec Tab) 40 mg PO DAILY [facility] Last Admin: 12/02/17 10:03 Dose: 40 mg Propranolol HCl (Inderal) 5 mg PO TID [facility] Last Admin: 12/02/17 13:38 Dose: 5 mg Simethicone (Mylicon Chew Tab) 80 mg PO QID [facility] Last Admin: 12/02/17 13:38 Dose: 80 mg Sucralfate (Carafate Oral Susp) 1 gm PO Q6 [facility] Last Admin: 12/02/17 11:32 Dose: 1 gm - Labs Labs: 12/02/17 07:20 12/02/17 07:20 PT 12.3 SECONDS (9.7-12.2) H 11/24/17 22:10 INR 1.1 11/24/17 22:10 APTT 29 SECONDS (21-34) 11/24/17 22:10 - Constitutional Appears: Non-toxic, No Acute Distress - Head Exam Head Exam: ATRAUMATIC - ENT Exam ENT Exam: Mucous Membranes Moist - Respiratory Exam Respiratory Exam: Clear to Ausculation Bilateral. absent: Rales, Rhonchi, Wheezes - Cardiovascular Exam Cardiovascular Exam: REGULAR RHYTHM, +S1, +S2. absent: Gallop, Rubs, Murmur - GI/Abdominal Exam GI & Abdominal Exam: Soft, Normal Bowel Sounds. absent: Distended, Firm, Guarding, Rigid, Tenderness, Organomegaly - Extremities Exam Extremities Exam: absent: Pedal Edema, Tenderness - Neurological Exam Neurological Exam: Alert, Awake, Oriented x3 - Psychiatric Exam Psychiatric exam: Normal Affect, Normal Mood - Skin Skin Exam: Dry, Intact, Normal Color, Warm Assessment and Plan - Assessment and Plan (Free Text) Assessment: Palpitations - Tele monitor showing NSR despite pt reporting palpitations -Initial chest pain on admission -EKG shows no axis deviation, no acute ST changes -Troponin negative X3 -Normal Cardiac cath in 2017 -CT chest showed borderline Cardiomegaly (see report) -Cardiology consulted, Dr. Farrell on the case. pending further recs from cardiology - Patient has had extensive workup within the last year- ruling out ischemic causes of chest pain. - Inderal 5mg PO TID Abdominal pain EGD done on 11/30: Results: LA grade B non-bleeding esophagitis noted; evidence of spasm; scattered inflammation, erosions and erythema noted in entire stomach. Biopsies taken. Hiatal hernia noted. Normal duodenum. Refer to complete report. -Biopsy results pending -Dulcolax, colace, carafate, lactulose, -Lipase normal at 259 DM -Repeatedly hypogylcemic. Pt refusing IV fluids -HgbA1c is 5.3 -ISS not given due to hypoglycemia -Hold oral diabetes meds due to poor oral intake -Accuchecks ACHS COPD -continue Ventolin PRN -Singulair 10mg po Hypertension -HCTZ 12.5mg (pt refused this med) -Losartan 50mg po - Inderal 5mg PO TID History of Anxiety -Klonopin 1mg PO TID Prophylactic Measure -Lovenox -Protonix -SCDs Discussed with attending physician All management per Dr. Zuñiga Patient is stable for discharge per Dr. Zuñiga Patient is to follow up with superintendent division, Dr. Wen upon discharge for results of EGD biopsy Patient is to follow up with flexographic printing machinist, Dr. Farrell upon discharge. If symptoms worsen, please return to ED. Patient is discharged with the following new medications: Reglan 5 mg PO q6 PRN #60 tabs, Inderal 5 mg PO TID #90 tabs, Mylicon Chew Tab 80 mg PO QID #60 tabs, Omeprazole 20 mg po QD #30, Micardis Hct 40-12.5 mg po qd #30
[2017-12-03] MEDS ORDERED: Enoxaparin 40 mg Syringe SC SCH (10:00)
== END 2017-12-02 16:29 | disposition home or self-care (01) | DRG 313 ==
LOC: C.ER 21:05 → C.6T 11-25 01:02
PROVIDERS: ADMIT Internal Medicine Nephrology; ATTEND Internal Medicine Nephrology
PROC: 0DB68ZX Excision of Stomach, Via Natural or Artificial Opening Endoscopic, Diagnostic (ICD-10-PCS; principal; 2017-11-30 11:39)
DX: R07.89 Other chest pain (principal); F41.9 Anxiety disorder, unspecified; K29.00 Acute gastritis without bleeding; K44.9 Diaphragmatic hernia without obstruction or gangrene; K21.0 Gastro-esophageal reflux disease with esophagitis; K27.9 Peptic ulcer, site unspecified, unspecified as acute or chronic, without hemorrhage or perforation; J44.9 Chronic obstructive pulmonary disease, unspecified; I11.0 Hypertensive heart disease with heart failure; I50.9 Heart failure, unspecified; K22.4 Dyskinesia of esophagus; E10.43 Type 1 diabetes mellitus with diabetic autonomic (poly)neuropathy; K59.09 Other constipation; K31.84 Gastroparesis; E78.00 Pure hypercholesterolemia, unspecified; F32.9 Major depressive disorder, single episode, unspecified; I25.10 Atherosclerotic heart disease of native coronary artery without angina pectoris; D50.9 Iron deficiency anemia, unspecified; I48.91 Unspecified atrial fibrillation; R00.2 Palpitations; Z87.891 Personal history of nicotine dependence; Z79.84 Long term (current) use of oral hypoglycemic drugs; Z95.5 Presence of coronary angioplasty implant and graft

== ENCOUNTER 2017-12-25 07:35 | Observation (INO) | payer MEDICARE, MEDICAID ==
[2017-12-25 07:55] VITALS: BMI 39.4
[2017-12-25] MEDS ORDERED: Albuterol-Ipratrop 3 mg / 0.5 (3 ml) UD INH STA ×2 (08:02→09:21)
--- NOTE | 2017-12-25 08:14 | C.PDOC ---
History Of Present Illness Patient with PMHx DM, HTN AFIB and COPD presents to ED with c/o non productive cough and sob for 4 days. Patient states she was seen at [facility] 2 days ago and diagnosed with pneumonia, given antibiotics with no improvement. Patient denies chest pain, nausea, vomiting, fever, chills or any other complaints at this time. Time Seen by Provider: 12/25/17 07:50 Chief Complaint (Nursing): Shortness Of Breath History Per: Patient History/Exam Limitations: no limitations Onset/Duration Of Symptoms: Days Current Symptoms Are (Timing): Still Present Initiating Event: Upper Respiratory Illness Past Medical History Reviewed: Historical Data, Nursing Documentation, Vital Signs Vital Signs: Last Vital Signs Temp 98.1 F 12/25/17 07:40 Pulse 92 H 12/25/17 07:40 Resp 20 12/25/17 08:08 BP 108/60 12/25/17 07:40 Pulse Ox 98 12/25/17 09:52 - Medical History PMH: Anxiety, Arthritis (hands), Atrial Fibrillation, CAD, Cardia Arrhythmia, CHF, COPD, Depression, Diabetes (hypoglycemia), Gastritis, Gall Bladder Disease , HTN, Hypercholesterolemia Surgical History: Cholecystectomy, Coronary Stent (x2) - [facility] Procedures EXCISION OF STOMACH, ENDO, DIAGN (11/25/17) Family History: States: No Known Family Hx - Social History Hx Tobacco Use: Yes (QUIT) Hx Alcohol Use: No Hx Substance Use: No - Immunization History Hx Tetanus Toxoid Vaccination: No Hx Influenza Vaccination: No Hx Pneumococcal Vaccination: No Review Of Systems Except As Marked, All Systems Reviewed And Found Negative. Respiratory: Positive for: Cough, Shortness of Breath Physical Exam - Physical Exam Appears: Non-toxic, No Acute Distress Skin: Warm, Dry, No Rash Head: Atraumatic, Normacephalic Oral Mucosa: Moist Neck: Normal ROM, Supple Cardiovascular: Rhythm Regular Respiratory: No Rales, Rhonchi (bilateral), Wheezing (bilateral) Gastrointestinal/Abdominal: Soft, No Tenderness, No Guarding, No Rebound Extremity: Normal ROM, Capillary Refill (<2 seconds) Neurological/Psych: Oriented x3, Normal Speech, Normal Cognition ED Course And Treatment - Laboratory Results Result Diagrams: 12/25/17 08:36 12/25/17 08:36 ECG: Interpreted By Me, Viewed By Me ECG Rhythm: Sinus Rhythm, Nonspecific Changes Rate From EC (BPM) O2 Sat by Pulse Oximetry: 98 (RA) Pulse Ox Interpretation: Normal Medical Decision Making Medical Decision Making: Assessment: COPD Progress: D/w with Dr. Zuñiga requested patient be admitted to tele obs for COPD exacerbation Disposition Discussed With : Bladimir Zuñiga Doctor Will See Patient In The: Hospital Counseled Patient/Family Regarding: Studies Performed, Diagnosis - Disposition Disposition: HOSPITALIZED Disposition Time: 09:51 Condition: FAIR - Clinical Impression Clinical Impression: Chr obstructive pulmonary disease w/ acute lower respiratory infxn - Scribe Statement The provider has reviewed the documentation as recorded by the Scribe Parveen Thacker All medical record entries made by the Manjulaibjeevan were at my direction and personally dictated by me. I have reviewed the chart and agree that the record accurately reflects my personal performance of the history, physical exam, medical decision making, and the department course for this patient. I have also personally directed, reviewed, and agree with the discharge instructions and disposition.
[2017-12-25 08:40] LABS: BASO % 0.4 % (0.0-2.0); EOS # 0.4 K/uL (0.0-0.7); HEMOGLOBIN 10.7 g/dL (11.0-16.0); LYMPH # 1.6 K/uL (1.0-4.3); LYMPH % 23.7 % (20.0-40.0); MEAN CELL VOLUME 78.1 fL (81.0-99.0); MEAN CORPUSCULAR HEMOGLOBIN 26.7 pg (27.0-31.0); MEAN CORPUSCULAR HGB CONC 34.2 g/dL (33.0-37.0); MEAN PLATELET VOLUME 8.6 fL (7.2-11.7); MONO # 0.4 K/uL (0.0-0.8); MONO % 5.6 % (0.0-10.0); NEUT # 4.5 K/uL (1.8-7.0); NEUT % 64.3 % (50.0-75.0); RBC 4.02 Mil/uL (3.80-5.20); RED CELL DISTRIBUTION WIDTH 16.4 % (11.5-14.5); WHITE BLOOD COUNT 6.9 K/uL (4.8-10.8)
[2017-12-25 09:05] LABS: ALB/GLOB RATIO 0.9 (1.0-2.1); ALBUMIN 3.7 g/dL (3.5-5.0); ALT/SGPT 12 U/L (9-52); AST/SGOT 21 U/L (14-36); BLOOD UREA NITROGEN 11 mg/dL (7-17); CALCIUM 8.4 mg/dl (8.6-10.4); GFR AFRICAN-AMERICAN > 60; GFR NON-AFRICAN AMERICAN > 60
[2017-12-25 09:08] LABS: B-TYPE NATRIURETIC PEPTIDE 32.7 pg/mL (0-900)
[2017-12-25] MEDS ORDERED: Azithromycin 500 MG in Sodium Chloride 0.9% 250 ML IVPB STA (09:22)
[2017-12-25] MEDS ORDERED: Potassium Chloride 20 mEq ER Tab PO ONE (09:26)
[2017-12-25] MEDS ORDERED: cefTRIAXone IV 1 gm in Dextros 50 ML IVPB ONE (09:30)
[2017-12-25] MEDS ORDERED: Albuterol-Ipratrop 3 mg / 0.5 (3 ml) UD ONE ×2 (09:33→14:12)
[2017-12-25] MEDS: Potassium Chloride 20 mEq ER Tab PO SCH (09:36)
--- NOTE | 2017-12-25 10:16 | RAD ---
HISTORY: SOB COMPARISON: No prior. TECHNIQUE: Chest PA and lateral FINDINGS: LUNGS: No active pulmonary disease. PLEURA: No significant pleural effusion identified. No pneumothorax apparent. CARDIOVASCULAR: Normal. OSSEOUS STRUCTURES: No significant abnormalities. VISUALIZED UPPER ABDOMEN: Normal. OTHER FINDINGS: None. IMPRESSION: No active disease.
[2017-12-25] MEDS ORDERED: COLLOIDAL OATMEAL TP PRN (13:52)
[2017-12-25] MEDS: Albuterol-Ipratrop 3 mg / 0.5 (3 ml) UD INH SCH (14:11)
[2017-12-25] MEDS: Belladonna-Phenobarbital PO SCH ×2 (14:11→18:52)
[2017-12-25] MEDS ORDERED: Belladonna-Phenobarbital ONE (14:12)
[2017-12-25] MEDS: MethylPREDNISolone 40 mg Vial IVP SCH ×2 (14:12→21:11)
[2017-12-25] MEDS: Propranolol 5 mg Tab PO SCH ×3 (14:32→18:54)
[2017-12-25] MEDS: Simethicone 80 mg Chewtab PO SCH ×3 (14:33→21:17)
[2017-12-25] MEDS: (Novolog) Insulin Aspart, Recombinant 100 u/ml 10 ml vial SC SCH ×2 (16:51→21:33)
--- NOTE | 2017-12-25 19:35 | CP.PCM.HP ---
Past Patient History - Infectious Disease Hx of Infectious Diseases: None - Tetanus Immunizations Tetanus Immunization: Unknown - Past Medical History & Family History Past Medical History?: Yes - Past Social History Smoking Status: Former Smoker - CARDIAC Hx Atrial Fibrillation: Yes Hx Cardia Arrhythmia: Yes Hx Congestive Heart Failure: Yes Hx Hypercholesterolemia: Yes Hx Hypertension: Yes - PULMONARY Hx Chronic Obstructive Pulmonary Disease (COPD): Yes - NEUROLOGICAL Hx Neurological Disorder: Yes HX Cerebrovascular Accident: Yes Hx Dizziness: Yes - HEENT Hx HEENT Problems: Yes Other/Comment: wears glasses for reading - RENAL Hx Chronic Kidney Disease: No - ENDOCRINE/METABOLIC Hx Endocrine Disorders: Yes Hx Diabetes Mellitus Type 1: Yes - HEMATOLOGICAL/ONCOLOGICAL Hx Blood Disorders: No - INTEGUMENTARY Hx Dermatological Problems: Yes Hx Eczema: Yes - MUSCULOSKELETAL/RHEUMATOLOGICAL Hx Arthritis: Yes (hands) - GASTROINTESTINAL Hx Gall Bladder Disease: Yes Hx Gastritis: Yes - GENITOURINARY/GYNECOLOGICAL Hx Genitourinary Disorders: No - PSYCHIATRIC Hx Anxiety: Yes Hx Depression: Yes Hx Substance Use: No - SURGICAL HISTORY Hx Cholecystectomy: Yes Hx Coronary Stent: Yes (x2) - ANESTHESIA Hx Anesthesia: Yes Hx Anesthesia Reactions: No Meds Allergies/Adverse Reactions: Allergies Allergy/AdvReac Type Severity Reaction Status Date / Time escitalopram [From Lexapro] AdvReac ANAPHYLAXIS Verified 12/25/17 07:55 Flu vaccine Allergy ANAPHYLAXIS Uncoded 12/25/17 07:55 pnuemonia vaccine Allergy ANAPHYLAXIS Uncoded 12/25/17 07:55 wool Allergy ANAPHYLAXIS Uncoded 12/25/17 07:55 Physical Exam - Constitutional Appears: Well - Head Exam Head Exam: ATRAUMATIC, NORMAL INSPECTION, NORMOCEPHALIC - Eye Exam Eye Exam: EOMI, Normal appearance, PERRL Pupil Exam: NORMAL ACCOMODATION, PERRL - ENT Exam ENT Exam: Mucous Membranes Moist, Normal Exam - Neck Exam Neck exam: Positive for: Normal Inspection - Respiratory Exam Respiratory Exam: Decreased Breath Sounds - Cardiovascular Exam Cardiovascular Exam: REGULAR RHYTHM, +S1, +S2 - GI/Abdominal Exam GI & Abdominal Exam: Diminished Bowel Sounds, Soft - Rectal Exam Rectal Exam: Deferred Results - Vital Signs Recent Vital Signs: Last Vital Signs Temp 98.2 F 12/25/17 15:15 Pulse 81 12/25/17 15:15 Resp 20 12/25/17 15:15 BP 130/83 12/25/17 15:15 Pulse Ox 97 05/04/18 15:45 - Labs Result Diagrams: 12/25/17 08:36 12/25/17 08:36 Labs: Laboratory Results - last 24 hr 12/25/17 12/25/17 12/25/17 08:23 08:36 08:36 WBC 6.9 RBC 4.02 Hgb 10.7 L Hct 31.4 L MCV 78.1 L MCH 26.7 L MCHC 34.2 RDW 16.4 H Plt Count 279 MPV 8.6 Neut % (Auto) 64.3 Lymph % (Auto) 23.7 [place] % (Auto) 5.6 Eos % (Auto) 6.0 H Baso % (Auto) 0.4 Neut # (Auto) 4.5 Lymph # (Auto) 1.6 [place] # (Auto) 0.4 Eos # (Auto) 0.4 Baso # (Auto) 0.0 Sodium 145 Potassium 2.9 L Chloride 105 Carbon Dioxide 24 Anion Gap 19 BUN 11 Creatinine 0.7 Est GFR ( Amer) > 60 Est GFR (Non-Af Amer) > 60 POC Glucose (mg/dL) 125 H Random Glucose 118 H Calcium 8.4 L Total Bilirubin 0.5 AST 21 ALT 12 Alkaline Phosphatase 92 Troponin I < 0.0120 NT-Pro-B Natriuret Pep 32.7 Total Protein 7.6 Albumin 3.7 Globulin 4.0 H Albumin/Globulin Ratio 0.9 L 12/25/17 16:12 WBC RBC Hgb Hct MCV MCH MCHC RDW Plt Count MPV Neut % (Auto) Lymph % (Auto) [place] % (Auto) Eos % (Auto) Baso % (Auto) Neut # (Auto) Lymph # (Auto) [place] # (Auto) Eos # (Auto) Baso # (Auto) Sodium Potassium Chloride Carbon Dioxide Anion Gap BUN Creatinine Est GFR ( Amer) Est GFR (Non-Af Amer) POC Glucose (mg/dL) 191 H Random Glucose Calcium Total Bilirubin AST ALT Alkaline Phosphatase Troponin I NT-Pro-B Natriuret Pep Total Protein Albumin Globulin Albumin/Globulin Ratio
[2017-12-25] MEDS: Fluticasone Nasal 50 mcg/Spray NAS SCH (21:18)
[2017-12-26] MEDS: Albuterol-Ipratrop 3 mg / 0.5 (3 ml) UD INH SCH ×4 (01:32→19:41)
[2017-12-26] MEDS: MethylPREDNISolone 40 mg Vial IVP SCH (05:58)
[2017-12-26 06:38] LABS: BASO % 0.1 % (0.0-2.0); HEMOGLOBIN 10.4 g/dL (11.0-16.0); LYMPH % 9.8 % (20.0-40.0); MEAN CELL VOLUME 78.8 fL (81.0-99.0); MEAN CORPUSCULAR HEMOGLOBIN 26.5 pg (27.0-31.0); MEAN CORPUSCULAR HGB CONC 33.6 g/dL (33.0-37.0); MEAN PLATELET VOLUME 8.9 fL (7.2-11.7); MONO # 0.3 K/uL (0.0-0.8); MONO % 2.6 % (0.0-10.0); NEUT # 9.2 K/uL (1.8-7.0); NEUT % 87.5 % (50.0-75.0); NRBC % 0.1 % (0.0-2.0); PLATELET COUNT 287 K/uL (130-400); RBC 3.92 Mil/uL (3.80-5.20); RED CELL DISTRIBUTION WIDTH 16.6 % (11.5-14.5); WHITE BLOOD COUNT 10.5 K/uL (4.8-10.8)
[2017-12-26 07:00] LABS: ALB/GLOB RATIO 0.9 (1.0-2.1); ALBUMIN 3.6 g/dL (3.5-5.0); ALT/SGPT 16 U/L (9-52); AST/SGOT 20 U/L (14-36); BLOOD UREA NITROGEN 16 mg/dL (7-17); CALCIUM 9.2 mg/dl (8.6-10.4); GFR AFRICAN-AMERICAN > 60; GFR NON-AFRICAN AMERICAN > 60
[2017-12-26] MEDS: (Novolog) Insulin Aspart, Recombinant 100 u/ml 10 ml vial SC SCH ×4 (07:45→21:59)
[2017-12-26] MEDS: Belladonna-Phenobarbital PO SCH ×3 (09:41→17:41)
[2017-12-26] MEDS: Pantoprazole 40 mg EC Tab PO SCH (09:41)
[2017-12-26] MEDS: Potassium Chloride 20 mEq ER Tab PO SCH (09:47)
[2017-12-26] MEDS: Fluticasone Nasal 50 mcg/Spray NAS SCH ×2 (09:49→22:03)
[2017-12-26] MEDS: Simethicone 80 mg Chewtab PO SCH ×4 (09:51→22:04)
[2017-12-26] MEDS: Propranolol 5 mg Tab PO SCH ×3 (10:00→17:41)
[2017-12-26 10:57] LABS: BANDS 1 % (0-2); LYMPHOCYTE 7 % (20-40); MONOCYTE 3 % (0-10); NEUTROPHIL 89 % (50-75); PLATELET ESTIMATE NORMAL (NORMAL); TOTAL CELLS COUNTED 100
[2017-12-26 10:58] LABS: ANISOCYTOSIS SLIGHT; HYPOCHROMIC SLIGHT; POIKILOCYTOSIS SLIGHT; POLYCHROMIC SLIGHT
[2017-12-26 10:59] LABS: OVALOCYTES SLIGHT
[2017-12-26] MEDS: Azithromycin 500 MG in Sodium Chloride 0.9% 250 ML IVPB SCH (11:00)
[2017-12-26] MEDS: guaiFENesin 600 mg ER Tab PO SCH (17:41)
--- NOTE | 2017-12-26 19:34 | CP.PCM.PN ---
Subjective - Date & Time of Evaluation Date of Evaluation: 12/26/17 Time of Evaluation: 11:00 - Subjective Subjective: clinically same Objective - Vital Signs/Intake and Output Vital Signs (last 24 hours): Temp Pulse Resp BP Pulse Ox 97.4 F L 59 L 18 117/69 97 12/26/17 15:00 12/26/17 16:00 12/26/17 15:00 12/26/17 15:00 12/26/17 15:00 - Medications Medications: Current Medications Albuterol/Ipratropium (Duoneb 3 Mg/0.5 Mg (3 Ml) Ud) 3 ml INH RQ6 [facility] Last Admin: 12/26/17 13:23 Dose: 3 ml Aspirin (Ecotrin) 81 mg PO DAILY [facility] Last Admin: 12/26/17 09:41 Dose: 81 mg Belladonna/Phenobarbital () 1 tab PO TID [facility] Last Admin: 12/26/17 17:41 Dose: 1 tab Clonazepam (Klonopin) 1 mg PO TID [facility] Last Admin: 12/26/17 17:41 Dose: 1 mg Docusate Sodium (Colace) 100 mg PO DAILY [facility] Last Admin: 12/26/17 09:41 Dose: 100 mg Fluticasone Propionate (Flonase) 1 spr MARIELENA Q12 [facility] Last Admin: 12/26/17 09:49 Dose: 1 spray Guaifenesin (Mucinex La) 600 mg PO BID [facility] Last Admin: 12/26/17 17:41 Dose: 600 mg Heparin Sodium (Porcine) (Heparin) 5,000 units SC Q12 [facility] Last Admin: 12/26/17 10:42 Dose: 5,000 units Hydrochlorothiazide (Microzide) 12.5 mg PO DAILY [facility] Last Admin: 12/26/17 09:51 Dose: Not Given Ceftriaxone Sodium 1 gm/ (Sodium Chloride) 100 mls @ 100 mls/hr IVPB DAILY [facility] PRN Reason: Protocol Last Admin: 12/26/17 10:00 Dose: 100 mls/hr Azithromycin 500 mg/ Sodium (Chloride) 250 mls @ 250 mls/hr IVPB DAILY@1100 [facility] PRN Reason: Protocol Last Admin: 12/26/17 11:00 Dose: 250 mls/hr Insulin Aspart (Novolog) 0 unit SC ACHS [facility] PRN Reason: Protocol Last Admin: 12/26/17 16:37 Dose: Not Given Lactulose (Enulose) 20 gm PO BID [facility] Last Admin: 12/26/17 18:30 Dose: Not Given Losartan Potassium (Cozaar) 50 mg PO DAILY [facility] Last Admin: 12/26/17 09:44 Dose: 50 mg Metoclopramide HCl (Reglan) 5 mg PO Q6H [facility] Last Admin: 12/26/17 14:13 Dose: 5 mg Montelukast Sodium (Singulair) 10 mg PO HS [facility] Last Admin: 12/25/17 21:17 Dose: 10 mg Pantoprazole Sodium (Protonix Ec Tab) 40 mg PO DAILY [facility] Last Admin: 12/26/17 09:41 Dose: 40 mg Potassium Chloride (K-Dur 20 Meq Er Tab) 40 meq PO DAILY [facility] Last Admin: 12/26/17 09:47 Dose: 40 meq Propranolol HCl (Inderal) 5 mg PO TID [facility] Last Admin: 12/26/17 17:41 Dose: 5 mg Simethicone (Mylicon Chew Tab) 80 mg PO QID [facility] Last Admin: 12/26/17 17:42 Dose: 80 mg Temazepam (Restoril) 15 mg PO HS PRN PRN Reason: Insomnia - Labs Labs: 12/26/17 06:29 12/26/17 06:29 - Constitutional Appears: Well - Head Exam Head Exam: ATRAUMATIC, NORMAL INSPECTION, NORMOCEPHALIC - Eye Exam Eye Exam: EOMI, Normal appearance, PERRL Pupil Exam: NORMAL ACCOMODATION, PERRL - ENT Exam ENT Exam: Mucous Membranes Moist, Normal Exam - Neck Exam Neck Exam: Full ROM, Normal Inspection. absent: Lymphadenopathy - Respiratory Exam Respiratory Exam: Decreased Breath Sounds - Cardiovascular Exam Cardiovascular Exam: REGULAR RHYTHM, +S1, +S2 - GI/Abdominal Exam GI & Abdominal Exam: Soft, Diminished Bowel Sounds - Rectal Exam Rectal Exam: Deferred
[2017-12-27] MEDS: Albuterol-Ipratrop 3 mg / 0.5 (3 ml) UD INH SCH ×5 (01:07→19:26)
[2017-12-27] MEDS: (Novolog) Insulin Aspart, Recombinant 100 u/ml 10 ml vial SC SCH ×3 (07:40→21:54)
[2017-12-27] MEDS: Simethicone 80 mg Chewtab PO SCH ×3 (09:52→22:40)
[2017-12-27] MEDS: Potassium Chloride 20 mEq ER Tab PO SCH (09:53)
[2017-12-27] MEDS: guaiFENesin 600 mg ER Tab PO SCH ×2 (09:55→17:39)
[2017-12-27] MEDS: Belladonna-Phenobarbital PO SCH ×3 (09:56→17:39)
[2017-12-27] MEDS: Fluticasone Nasal 50 mcg/Spray NAS SCH ×2 (09:59→22:42)
[2017-12-27] MEDS: Propranolol 5 mg Tab PO SCH ×3 (10:00→17:40)
[2017-12-27] MEDS: Pantoprazole 40 mg EC Tab PO SCH (10:02)
[2017-12-27] MEDS ORDERED: Albuterol-Ipratrop 3 mg / 0.5 (3 ml) UD INH PRN (13:45)
--- NOTE | 2017-12-27 16:35 | CP.PCM.PN ---
Subjective - Date & Time of Evaluation Date of Evaluation: 12/27/17 Time of Evaluation: 10:40 - Subjective Subjective: clinically same Objective - Vital Signs/Intake and Output Vital Signs (last 24 hours): Temp Pulse Resp BP Pulse Ox 98.1 F 63 20 117/73 98 12/27/17 07:10 12/27/17 16:00 12/27/17 07:10 12/27/17 07:10 12/27/17 16:00 Intake and Output: 12/27/17 12/27/17 06:59 18:59 Intake Total 330 Balance 330 - Medications Medications: Current Medications Albuterol/Ipratropium (Duoneb 3 Mg/0.5 Mg (3 Ml) Ud) 3 ml INH RQ6 [facility] Aspirin (Ecotrin) 81 mg PO DAILY [facility] Last Admin: 12/27/17 09:57 Dose: 81 mg Belladonna/Phenobarbital () 1 tab PO TID [facility] Last Admin: 12/27/17 14:31 Dose: 1 tab Clonazepam (Klonopin) 1 mg PO TID [facility] Last Admin: 12/27/17 14:32 Dose: 1 mg Docusate Sodium (Colace) 100 mg PO DAILY [facility] Last Admin: 12/27/17 09:56 Dose: 100 mg Fluticasone Propionate (Flonase) 1 spr MARIELENA Q12 [facility] Last Admin: 12/27/17 09:59 Dose: 1 spray Guaifenesin (Mucinex La) 600 mg PO BID [facility] Last Admin: 12/27/17 09:55 Dose: 600 mg Heparin Sodium (Porcine) (Heparin) 5,000 units SC Q12 [facility] Last Admin: 12/27/17 10:05 Dose: 5,000 units Hydrochlorothiazide (Microzide) 12.5 mg PO DAILY [facility] Last Admin: 12/27/17 09:57 Dose: Not Given Ceftriaxone Sodium 1 gm/ (Sodium Chloride) 100 mls @ 100 mls/hr IVPB DAILY [facility] PRN Reason: Protocol Last Admin: 12/27/17 10:00 Dose: 100 mls/hr Azithromycin 500 mg/ Sodium (Chloride) 250 mls @ 250 mls/hr IVPB DAILY@1100 [facility] PRN Reason: Protocol Last Admin: 12/26/17 11:00 Dose: 250 mls/hr Insulin Aspart (Novolog) 0 unit SC ACHS [facility] PRN Reason: Protocol Last Admin: 12/27/17 07:40 Dose: Not Given Lactulose (Enulose) 20 gm PO BID [facility] Last Admin: 12/27/17 10:06 Dose: 20 gm Lactulose (Enulose) 20 gm PO HS [facility] Losartan Potassium (Cozaar) 50 mg PO DAILY [facility] Last Admin: 12/27/17 09:57 Dose: 50 mg Metoclopramide HCl (Reglan) 5 mg PO Q6H [facility] Last Admin: 12/27/17 08:00 Dose: 5 mg Montelukast Sodium (Singulair) 10 mg PO HS [facility] Last Admin: 12/26/17 22:03 Dose: 10 mg Pantoprazole Sodium (Protonix Ec Tab) 40 mg PO DAILY [facility] Last Admin: 12/27/17 10:02 Dose: 40 mg Potassium Chloride (K-Dur 20 Meq Er Tab) 40 meq PO DAILY [facility] Last Admin: 12/27/17 09:53 Dose: 40 meq Promethazine HCl/Dextromethorphan (Phenergan Dm Syrup) 10 ml PO Q8 [facility] Propranolol HCl (Inderal) 5 mg PO TID [facility] Last Admin: 12/27/17 14:32 Dose: 5 mg Simethicone (Mylicon Chew Tab) 80 mg PO QID [facility] Last Admin: 12/27/17 09:52 Dose: 80 mg Temazepam (Restoril) 15 mg PO HS PRN PRN Reason: Insomnia Last Admin: 12/26/17 22:06 Dose: 15 mg - Labs Labs: 12/26/17 06:29 12/26/17 06:29 - Constitutional Appears: Well - Head Exam Head Exam: ATRAUMATIC, NORMAL INSPECTION, NORMOCEPHALIC - Eye Exam Eye Exam: EOMI, Normal appearance, PERRL Pupil Exam: NORMAL ACCOMODATION, PERRL - ENT Exam ENT Exam: Mucous Membranes Moist, Normal Exam - Neck Exam Neck Exam: Full ROM, Normal Inspection. absent: Lymphadenopathy - Respiratory Exam Respiratory Exam: Decreased Breath Sounds - Cardiovascular Exam Cardiovascular Exam: REGULAR RHYTHM, +S1, +S2 - GI/Abdominal Exam GI & Abdominal Exam: Soft, Diminished Bowel Sounds - Rectal Exam Rectal Exam: Deferred
[2017-12-27] MEDS: Promethazine DM 12.5 mg-30 mg/10 ml Syrup PO SCH (22:41)
[2017-12-28] MEDS: Promethazine DM 12.5 mg-30 mg/10 ml Syrup PO SCH ×3 (05:24→22:20)
[2017-12-28] MEDS: Albuterol-Ipratrop 3 mg / 0.5 (3 ml) UD INH SCH ×4 (06:40→19:04)
[2017-12-28] MEDS: Belladonna-Phenobarbital PO SCH ×3 (10:20→18:23)
[2017-12-28] MEDS: Fluticasone Nasal 50 mcg/Spray NAS SCH ×2 (10:20→22:04)
[2017-12-28] MEDS: Pantoprazole 40 mg EC Tab PO SCH (10:21)
[2017-12-28] MEDS: Potassium Chloride 20 mEq ER Tab PO SCH (10:21)
[2017-12-28] MEDS: guaiFENesin 600 mg ER Tab PO SCH ×2 (10:21→18:23)
[2017-12-28] MEDS: Simethicone 80 mg Chewtab PO SCH ×4 (10:22→22:02)
[2017-12-28] MEDS: (Novolog) Insulin Aspart, Recombinant 100 u/ml 10 ml vial SC SCH ×4 (10:22→22:03)
[2017-12-28] MEDS: Propranolol 5 mg Tab PO SCH ×3 (10:23→18:30)
[2017-12-28] MEDS: Azithromycin 500 MG in Sodium Chloride 0.9% 250 ML IVPB SCH (11:07)
[2017-12-28 11:19] LABS: BASO % 0.5 % (0.0-2.0); EOS # 0.6 K/uL (0.0-0.7); HEMOGLOBIN 10.7 g/dL (11.0-16.0); LYMPH # 3.1 K/uL (1.0-4.3); LYMPH % 36.9 % (20.0-40.0); MEAN CELL VOLUME 79.5 fL (81.0-99.0); MEAN CORPUSCULAR HEMOGLOBIN 26.4 pg (27.0-31.0); MEAN CORPUSCULAR HGB CONC 33.2 g/dL (33.0-37.0); MEAN PLATELET VOLUME 8.5 fL (7.2-11.7); MONO # 0.5 K/uL (0.0-0.8); MONO % 6.6 % (0.0-10.0); RBC 4.05 Mil/uL (3.80-5.20); RED CELL DISTRIBUTION WIDTH 16.5 % (11.5-14.5); WHITE BLOOD COUNT 8.3 K/uL (4.8-10.8)
[2017-12-28 11:24] LABS: ALBUMIN 3.5 g/dL (3.5-5.0); ALT/SGPT 18 U/L (9-52); AST/SGOT 18 U/L (14-36); BLOOD UREA NITROGEN 16 mg/dL (7-17); CALCIUM 8.7 mg/dl (8.6-10.4); GFR AFRICAN-AMERICAN > 60; GFR NON-AFRICAN AMERICAN > 60
--- NOTE | 2017-12-28 14:18 | CP.PCM.PN ---
Subjective - Date & Time of Evaluation Date of Evaluation: 12/28/17 Time of Evaluation: 08:25 - Subjective Subjective: PGY2 Resident - Medicine Progress Note Patient seen and examined at bedside. No acute distress. No overnight events. Patient c/o persistent cough since 12/22 (admitted on 12/25, also seen at [facility] on 12/23). She states phenergan x1d has helped mildly, will continue. She states that she is feeling better since starting IV abx. She continues to feel SOB, however slightly better with breathing treatments. Denies fever, chills, chest pain, palpitations, abdominal pain, or nausea/vomiting. 12-point review of systems is otherwise negative without any additional acute complaints. Objective - Vital Signs/Intake and Output Vital Signs (last 24 hours): Temp Pulse Resp BP Pulse Ox 98.6 F 81 18 108/68 98 12/28/17 07:30 12/28/17 13:21 12/28/17 07:30 12/28/17 13:21 12/28/17 08:00 Intake and Output: 12/28/17 12/28/17 06:59 18:59 Intake Total 420 Balance 420 - Medications Medications: Current Medications Albuterol/Ipratropium (Duoneb 3 Mg/0.5 Mg (3 Ml) Ud) 3 ml INH RQ6 [facility] Last Admin: 12/28/17 13:01 Dose: 3 ml Aspirin (Ecotrin) 81 mg PO DAILY [facility] Last Admin: 12/28/17 10:22 Dose: 81 mg Belladonna/Phenobarbital () 1 tab PO TID [facility] Last Admin: 12/28/17 13:16 Dose: 1 tab Clonazepam (Klonopin) 1 mg PO TID [facility] Last Admin: 12/28/17 13:16 Dose: 1 mg Docusate Sodium (Colace) 100 mg PO DAILY [facility] Last Admin: 12/28/17 10:21 Dose: 100 mg Fluticasone Propionate (Flonase) 1 spr MARIELENA Q12 [facility] Last Admin: 12/28/17 10:20 Dose: Not Given Guaifenesin (Mucinex La) 600 mg PO BID [facility] Last Admin: 12/28/17 10:21 Dose: 600 mg Heparin Sodium (Porcine) (Heparin) 5,000 units SC Q12 [facility] Last Admin: 12/28/17 10:22 Dose: 5,000 units Hydrochlorothiazide (Microzide) 12.5 mg PO DAILY [facility] Last Admin: 12/28/17 10:22 Dose: 12.5 mg Ceftriaxone Sodium 1 gm/ (Sodium Chloride) 100 mls @ 100 mls/hr IVPB DAILY [facility] PRN Reason: Protocol Last Admin: 12/28/17 10:22 Dose: 100 mls/hr Azithromycin 500 mg/ Sodium (Chloride) 250 mls @ 250 mls/hr IVPB DAILY@1100 [facility] PRN Reason: Protocol Last Admin: 12/28/17 11:07 Dose: 250 mls/hr Insulin Aspart (Novolog) 0 unit SC ACHS [facility] PRN Reason: Protocol Last Admin: 12/28/17 11:57 Dose: Not Given Lactulose (Enulose) 20 gm PO BID [facility] Last Admin: 12/28/17 10:20 Dose: Not Given Lactulose (Enulose) 20 gm PO HS [facility] Last Admin: 12/27/17 21:53 Dose: Not Given Losartan Potassium (Cozaar) 50 mg PO DAILY [facility] Last Admin: 12/28/17 10:21 Dose: 50 mg Metoclopramide HCl (Reglan) 5 mg PO Q6H [facility] Last Admin: 12/28/17 13:19 Dose: 5 mg Montelukast Sodium (Singulair) 10 mg PO HS [facility] Last Admin: 12/27/17 22:40 Dose: 10 mg Pantoprazole Sodium (Protonix Ec Tab) 40 mg PO DAILY [facility] Last Admin: 12/28/17 10:21 Dose: 40 mg Potassium Chloride (K-Dur 20 Meq Er Tab) 40 meq PO DAILY [facility] Last Admin: 12/28/17 10:21 Dose: 40 meq Promethazine HCl/Dextromethorphan (Phenergan Dm Syrup) 10 ml PO Q8 [facility] Last Admin: 12/28/17 13:16 Dose: 10 ml Propranolol HCl (Inderal) 5 mg PO TID [facility] Last Admin: 12/28/17 13:20 Dose: 5 mg Simethicone (Mylicon Chew Tab) 80 mg PO QID [facility] Last Admin: 12/28/17 13:16 Dose: 80 mg Temazepam (Restoril) 15 mg PO HS PRN PRN Reason: Insomnia Last Admin: 12/26/17 22:06 Dose: 15 mg - Labs Labs: 12/28/17 11:00 05/07/18 11:00 - Constitutional Appears: Non-toxic, No Acute Distress - Head Exam Head Exam: ATRAUMATIC, NORMAL INSPECTION - Eye Exam Eye Exam: Normal appearance, PERRL Pupil Exam: NORMAL ACCOMODATION - ENT Exam ENT Exam: Mucous Membranes Moist - Neck Exam Neck Exam: absent: Lymphadenopathy - Respiratory Exam Respiratory Exam: Decreased Breath Sounds. absent: Clear to Ausculation Bilateral (coarse breath sounds), Rales - Cardiovascular Exam Cardiovascular Exam: REGULAR RHYTHM, +S1, +S2. absent: Murmur - GI/Abdominal Exam GI & Abdominal Exam: Soft, Hypoactive Bowel Sounds. absent: Tenderness - Extremities Exam Extremities Exam: Normal Capillary Refill. absent: Pedal Edema - Neurological Exam Neurological Exam: Alert, Awake, Oriented x3 - Psychiatric Exam Psychiatric exam: Anxious, Normal Affect - Skin Skin Exam: Dry, Intact Assessment and Plan - Assessment and Plan (Free Text) Assessment: COPD Exacerbation 12/28: added azithromycin 500mg IVPB qD portable CXR with poor inspiratory volume. possible mild pulm venous congestion. see full report. associated cough improving with phenergan Albuterol/Ipratropium (Duoneb 3 Mg/0.5 Mg (3 Ml) Ud) 3 ml INH RQ6 [facility] Ceftriaxone Sodium 1 gm/ (Sodium Chloride) 100 mls @ 100 mls/hr IVPB DAILY [facility] Azithromycin 500 mg/ Sodium (Chloride) 250 mls @ 250 mls/hr IVPB DAILY@1100 [facility] Singulair) 10 mg PO HS [facility] Phenergan Dm Syrup) 10 ml PO Q8 [facility] Allergic Rhinitis Flonase) 1 spr MARIELENA Q12 [facility] Mucinex La) 600 mg PO BID [facility] Diabetes Novolog) 0 unit SC ACHS [facility] Hypertension Cozaar) 50 mg PO DAILY [facility] Hydrochlorothiazide (Microzide) 12.5 mg PO DAILY [facility] Propranolol HCl (Inderal) 5 mg PO TID [facility] Anxiety Klonopin) 1 mg PO TID [facility] Insomnia Restoril) 15 mg PO HS PRN Constipation 12/28: patient with chronic gi irregularity. Last BM this AM. Enulose) 20 gm PO BID [facility] Reglan) 5 mg PO Q6H [facility] Mylicon Chew Tab) 80 mg PO QID [facility] Colace) 100 mg PO DAILY [facility] ) 1 tab PO TID [facility] Prophylaxis Heparin) 5,000 units SC Q12 [facility] Protonix Ec Tab) 40 mg PO DAILY [facility] Case discussed with attending. All medical management as per Dr. Raz Zuñiga.
--- NOTE | 2017-12-28 15:44 | RAD ---
HISTORY: SOB COMPARISON: 12/25/2017 FINDINGS: LUNGS: Poor inspiration with low lung volumes, crowded bronchovascular markings and bibasilar atelectasis. Central pulmonary vasculature is also slightly increased which may be secondary to above-mentioned low lung volumes however the possibility of mild pulmonary venous congestion not excluded. PLEURA: No significant pleural effusion identified, no pneumothorax apparent. CARDIOVASCULAR: Cardiomegaly OSSEOUS STRUCTURES: No significant abnormalities. VISUALIZED UPPER ABDOMEN: Normal. OTHER FINDINGS: None. IMPRESSION: Poor inspiration with low lung volumes, crowded bronchovascular markings and bibasilar atelectasis. Central pulmonary vasculature is also slightly increased which may be secondary to above-mentioned low lung volumes however the possibility of mild pulmonary venous congestion not excluded.
--- NOTE | 2017-12-28 21:37 | CP.PCM.PN ---
Subjective - Date & Time of Evaluation Date of Evaluation: 12/28/17 Time of Evaluation: 11:20 - Subjective Subjective: clinically same Objective - Vital Signs/Intake and Output Vital Signs (last 24 hours): Temp Pulse Resp BP Pulse Ox 98.1 F 81 20 107/66 98 12/28/17 15:40 12/28/17 18:31 12/28/17 15:40 12/28/17 18:31 12/28/17 15:40 - Medications Medications: Current Medications Albuterol/Ipratropium (Duoneb 3 Mg/0.5 Mg (3 Ml) Ud) 3 ml INH RQ6 [facility] Last Admin: 12/28/17 19:04 Dose: 3 ml Aspirin (Ecotrin) 81 mg PO DAILY [facility] Last Admin: 12/28/17 10:22 Dose: 81 mg Belladonna/Phenobarbital () 1 tab PO TID [facility] Last Admin: 12/28/17 18:23 Dose: 1 tab Clonazepam (Klonopin) 1 mg PO TID [facility] Last Admin: 12/28/17 18:23 Dose: 1 mg Docusate Sodium (Colace) 100 mg PO DAILY [facility] [place] Last Admin: 12/28/17 10:21 Dose: 100 mg Fluticasone Propionate (Flonase) 1 spr MARIELENA Q12 [facility] [place] Last Admin: 12/28/17 10:20 Dose: Not Given Guaifenesin (Mucinex La) 600 mg PO BID [facility] [place] Last Admin: 12/28/17 18:23 Dose: 600 mg Heparin Sodium (Porcine) (Heparin) 5,000 units SC Q12 [facility] [place] Last Admin: 12/28/17 10:22 Dose: 5,000 units Hydrochlorothiazide (Microzide) 12.5 mg PO DAILY [facility] [place] Last Admin: 12/28/17 10:22 Dose: 12.5 mg Ceftriaxone Sodium 1 gm/ (Sodium Chloride) 100 mls @ 100 mls/hr IVPB DAILY [facility] [place] PRN Reason: Protocol Last Admin: 12/28/17 10:22 Dose: 100 mls/hr Azithromycin 500 mg/ Sodium (Chloride) 250 mls @ 250 mls/hr IVPB DAILY@1100 [facility] PRN Reason: Protocol Last Admin: 12/28/17 11:07 Dose: 250 mls/hr Insulin Aspart (Novolog) 0 unit SC ACHS [facility] [place] PRN Reason: Protocol Last Admin: 12/28/17 18:24 Dose: Not Given Lactulose (Enulose) 20 gm PO BID [facility] Last Admin: 12/28/17 18:24 Dose: Not Given Lactulose (Enulose) 20 gm PO HS [facility] [place] Last Admin: 12/27/17 21:53 Dose: Not Given Losartan Potassium (Cozaar) 50 mg PO DAILY [facility] Last Admin: 12/28/17 10:21 Dose: 50 mg Metoclopramide HCl (Reglan) 5 mg PO Q6H [facility] Last Admin: 12/28/17 20:05 Dose: 5 mg Montelukast Sodium (Singulair) 10 mg PO HS [facility] Last Admin: 12/27/17 22:40 Dose: 10 mg Pantoprazole Sodium (Protonix Ec Tab) 40 mg PO DAILY [facility] Last Admin: 12/28/17 10:21 Dose: 40 mg Potassium Chloride (K-Dur 20 Meq Er Tab) 40 meq PO DAILY [facility] Last Admin: 12/28/17 10:21 Dose: 40 meq Promethazine HCl/Dextromethorphan (Phenergan Dm Syrup) 10 ml PO Q8 [facility] Last Admin: 12/28/17 13:16 Dose: 10 ml Propranolol HCl (Inderal) 5 mg PO TID [facility] [place] Last Admin: 12/28/17 18:30 Dose: 5 mg Simethicone (Mylicon Chew Tab) 80 mg PO QID [facility] [place] Last Admin: 12/28/17 18:23 Dose: 80 mg Temazepam (Restoril) 15 mg PO HS PRN PRN Reason: Insomnia Last Admin: 12/26/17 22:06 Dose: 15 mg - Labs Labs: 12/28/17 11:00 12/28/17 11:00 - Constitutional Appears: Well - Head Exam Head Exam: ATRAUMATIC, NORMAL INSPECTION, NORMOCEPHALIC - Eye Exam Eye Exam: EOMI, Normal appearance, PERRL Pupil Exam: NORMAL ACCOMODATION, PERRL - ENT Exam ENT Exam: Mucous Membranes Moist, Normal Exam - Neck Exam Neck Exam: Full ROM, Normal Inspection. absent: Lymphadenopathy - Respiratory Exam Respiratory Exam: Decreased Breath Sounds - Cardiovascular Exam Cardiovascular Exam: REGULAR RHYTHM, +S1, +S2 - GI/Abdominal Exam GI & Abdominal Exam: Soft, Diminished Bowel Sounds - Rectal Exam Rectal Exam: Deferred
[2017-12-29] MEDS: Albuterol-Ipratrop 3 mg / 0.5 (3 ml) UD INH SCH ×3 (01:05→13:10)
[2017-12-29] MEDS: Promethazine DM 12.5 mg-30 mg/10 ml Syrup PO SCH ×2 (05:58→14:35)
[2017-12-29 06:22] LABS: BASO % 0.5 % (0.0-2.0); EOS # 0.6 K/uL (0.0-0.7); EOS % 7.6 % (0.0-4.0); HEMOGLOBIN 10.5 g/dL (11.0-16.0); LYMPH # 2.3 K/uL (1.0-4.3); LYMPH % 28.4 % (20.0-40.0); MEAN CELL VOLUME 79.2 fL (81.0-99.0); MEAN CORPUSCULAR HEMOGLOBIN 26.3 pg (27.0-31.0); MEAN CORPUSCULAR HGB CONC 33.2 g/dL (33.0-37.0); MEAN PLATELET VOLUME 8.2 fL (7.2-11.7); MONO # 0.4 K/uL (0.0-0.8); MONO % 5.2 % (0.0-10.0); NEUT # 4.7 K/uL (1.8-7.0); NEUT % 58.3 % (50.0-75.0); NRBC % 0.1 % (0.0-2.0); RBC 4.01 Mil/uL (3.80-5.20); RED CELL DISTRIBUTION WIDTH 16.9 % (11.5-14.5)
[2017-12-29 06:52] LABS: ALBUMIN 3.2 g/dL (3.5-5.0); ALT/SGPT 15 U/L (9-52); AST/SGOT 12 U/L (14-36); BLOOD UREA NITROGEN 14 mg/dL (7-17); CALCIUM 8.7 mg/dl (8.6-10.4); GFR AFRICAN-AMERICAN > 60; GFR NON-AFRICAN AMERICAN 58
--- NOTE | 2017-12-29 07:44 | CP.PCM.PN ---
Subjective - Date & Time of Evaluation Date of Evaluation: 12/29/17 Time of Evaluation: 08:15 - Subjective Subjective: PGY2 Resident - Medicine Progress Note Patient seen and examined at bedside. No acute distress. No overnight events. Patient reports that cough has improved. Her respiration has also improved with breathing treatments. She states that she is ready to go home. Denies fever, chills, chest pain, palpitations, abdominal pain, or nausea/vomiting. 12-point review of systems is otherwise negative without any additional acute complaints. --- Patient is stable for discharge per Dr. Rza Zuñiga. Patient should resume all medications as outlined in this document. Additionally, patient should take the new medications listed below (scripts provided). Please make an appointment and follow up with your Primary Doctor, Dr. Raz Zuñiga within one week of discharge. Patient should return to ED immediately if symptoms return or worsen. Instructions discussed with patient who understood and agreed. Newly prescribed medications: Augmentin 875-125mg PO BID #14 Zithromax 250mg PO qD #4 Mucinex 600mg PO BID #20 Kdur 10meq PO qD #30 Florastor 250mg PO qD #10 Combivent Respimat 1puff IH q6H PRN #1 Symbicort 1puff IH q12H #1 Objective - Vital Signs/Intake and Output Vital Signs (last 24 hours): Temp Pulse Resp BP Pulse Ox 97.9 F 68 20 109/60 97 12/29/17 04:10 12/29/17 04:10 12/29/17 04:10 12/29/17 04:10 12/29/17 04:10 Intake and Output: 12/29/17 12/29/17 06:59 18:59 Intake Total 320 Balance 320 - Medications Medications: Current Medications Albuterol/Ipratropium (Duoneb 3 Mg/0.5 Mg (3 Ml) Ud) 3 ml INH RQ6 [facility] Last Admin: 12/29/17 07:26 Dose: 3 ml Aspirin (Ecotrin) 81 mg PO DAILY [facility] Last Admin: 12/28/17 10:22 Dose: 81 mg Belladonna/Phenobarbital () 1 tab PO TID [facility] Last Admin: 12/28/17 18:23 Dose: 1 tab Clonazepam (Klonopin) 1 mg PO TID [facility] Last Admin: 12/28/17 18:23 Dose: 1 mg Docusate Sodium (Colace) 100 mg PO DAILY [facility] Last Admin: 12/28/17 10:21 Dose: 100 mg Fluticasone Propionate (Flonase) 1 spr MARIELENA Q12 [facility] Last Admin: 12/28/17 22:04 Dose: Not Given Guaifenesin (Mucinex La) 600 mg PO BID [facility] Last Admin: 12/28/17 18:23 Dose: 600 mg Heparin Sodium (Porcine) (Heparin) 5,000 units SC Q12 [facility] Last Admin: 12/28/17 22:04 Dose: 5,000 units Hydrochlorothiazide (Microzide) 12.5 mg PO DAILY [facility] Last Admin: 12/28/17 10:22 Dose: 12.5 mg Ceftriaxone Sodium 1 gm/ (Sodium Chloride) 100 mls @ 100 mls/hr IVPB DAILY [facility] PRN Reason: Protocol Last Admin: 12/28/17 10:22 Dose: 100 mls/hr Azithromycin 500 mg/ Sodium (Chloride) 250 mls @ 250 mls/hr IVPB DAILY@1100 [facility] PRN Reason: Protocol Last Admin: 12/28/17 11:07 Dose: 250 mls/hr Insulin Aspart (Novolog) 0 unit SC ACHS [facility] PRN Reason: Protocol Last Admin: 12/28/17 22:03 Dose: Not Given Lactulose (Enulose) 20 gm PO BID [facility] Last Admin: 12/28/17 18:24 Dose: Not Given Lactulose (Enulose) 20 gm PO HS [facility] Last Admin: 12/28/17 22:03 Dose: Not Given Losartan Potassium (Cozaar) 50 mg PO DAILY [facility] Last Admin: 12/28/17 10:21 Dose: 50 mg Metoclopramide HCl (Reglan) 5 mg PO Q6H [facility] Last Admin: 12/29/17 02:00 Dose: Not Given Montelukast Sodium (Singulair) 10 mg PO HS [facility] Last Admin: 12/28/17 22:02 Dose: 10 mg Pantoprazole Sodium (Protonix Ec Tab) 40 mg PO DAILY [facility] Last Admin: 12/28/17 10:21 Dose: 40 mg Potassium Chloride (K-Dur 20 Meq Er Tab) 40 meq PO DAILY [facility] Last Admin: 12/28/17 10:21 Dose: 40 meq Promethazine HCl/Dextromethorphan (Phenergan Dm Syrup) 10 ml PO Q8 [facility] Last Admin: 12/29/17 05:58 Dose: 10 ml Propranolol HCl (Inderal) 5 mg PO TID [facility] Last Admin: 12/28/17 18:30 Dose: 5 mg Simethicone (Mylicon Chew Tab) 80 mg PO QID [facility] Last Admin: 12/28/17 22:02 Dose: 80 mg Temazepam (Restoril) 15 mg PO HS PRN PRN Reason: Insomnia Last Admin: 12/26/17 22:06 Dose: 15 mg - Labs Labs: 12/29/17 06:17 12/29/17 06:17 - Additional Findings Additional findings: - Constitutional Appears: Non-toxic, No Acute Distress - Head Exam Head Exam: ATRAUMATIC, NORMAL INSPECTION - Eye Exam Eye Exam: Normal appearance, PERRL Pupil Exam: NORMAL ACCOMODATION - ENT Exam ENT Exam: Mucous Membranes Moist - Neck Exam Neck Exam: absent: Lymphadenopathy - Respiratory Exam Respiratory Exam: Decreased Breath Sounds. Clear to Ausculation Bilateral. absent: Rales, Wheezes - Cardiovascular Exam Cardiovascular Exam: REGULAR RHYTHM, +S1, +S2. absent: Murmur - GI/Abdominal Exam GI & Abdominal Exam: Soft, Hypoactive Bowel Sounds. absent: Tenderness - Extremities Exam Extremities Exam: Normal Capillary Refill. absent: Pedal Edema - Neurological Exam Neurological Exam: Alert, Awake, Oriented x3 - Psychiatric Exam Psychiatric exam: Anxious, Normal Affect - Skin Skin Exam: Dry, Intact Assessment and Plan - Assessment and Plan (Free Text) Assessment: COPD Exacerbation 12/29: Patient stable for discharge. Breathing improved and she states breathing treatments helped. Will continue PO abx at home. 12/28: added azithromycin 500mg IVPB qD portable CXR with poor inspiratory volume. possible mild pulm venous congestion. see full report. associated cough improving with phenergan Albuterol/Ipratropium (Duoneb 3 Mg/0.5 Mg (3 Ml) Ud) 3 ml INH RQ6 [facility] Ceftriaxone Sodium 1 gm/ (Sodium Chloride) 100 mls @ 100 mls/hr IVPB DAILY [facility] Azithromycin 500 mg/ Sodium (Chloride) 250 mls @ 250 mls/hr IVPB DAILY@1100 [facility] Singulair) 10 mg PO HS [facility] Phenergan Dm Syrup) 10 ml PO Q8 [facility] Allergic Rhinitis Flonase) 1 spr MARIELENA Q12 [facility] Mucinex La) 600 mg PO BID [facility] Diabetes Novolog) 0 unit SC ACHS [facility] Hypertension Cozaar) 50 mg PO DAILY [facility] Hydrochlorothiazide (Microzide) 12.5 mg PO DAILY [facility] Propranolol HCl (Inderal) 5 mg PO TID [facility] Anxiety Klonopin) 1 mg PO TID [facility] Insomnia Restoril) 15 mg PO HS PRN Constipation 12/29: Patient reports she does not take at home. Will D/C on discharge. 12/28: patient with chronic gi irregularity. Last BM this AM. Enulose) 20 gm PO BID [facility] Reglan) 5 mg PO Q6H [facility] Mylicon Chew Tab) 80 mg PO QID [facility] Colace) 100 mg PO DAILY [facility] Prophylaxis Heparin) 5,000 units SC Q12 [facility] Protonix Ec Tab) 40 mg PO DAILY [facility] Case discussed with attending. All medical management as per Dr. Raz Zuñiga.
[2017-12-29 07:49] VITALS: BP 138/84; RESP 18; TEMP 98.1; O2SAT 98
[2017-12-29] MEDS: Belladonna-Phenobarbital PO SCH ×2 (09:48→14:29)
[2017-12-29] MEDS: Simethicone 80 mg Chewtab PO SCH ×3 (09:49→14:31)
[2017-12-29] MEDS: Potassium Chloride 20 mEq ER Tab PO SCH (09:49)
[2017-12-29] MEDS: guaiFENesin 600 mg ER Tab PO SCH (09:49)
[2017-12-29] MEDS: Pantoprazole 40 mg EC Tab PO SCH (09:49)
[2017-12-29] MEDS: Propranolol 5 mg Tab PO SCH ×2 (09:53→14:29)
[2017-12-29] MEDS: (Novolog) Insulin Aspart, Recombinant 100 u/ml 10 ml vial SC SCH ×2 (09:54→12:08)
[2017-12-29] MEDS: Fluticasone Nasal 50 mcg/Spray NAS SCH (09:55)
[2017-12-29] MEDS: Azithromycin 500 MG in Sodium Chloride 0.9% 250 ML IVPB SCH ×2 (11:53→12:04)
--- NOTE | 2017-12-29 13:26 | CP.PCM.PN ---
Subjective - Date & Time of Evaluation Date of Evaluation: 12/29/17 Time of Evaluation: 10:00 - Subjective Subjective: clinically same Objective - Vital Signs/Intake and Output Vital Signs (last 24 hours): Temp Pulse Resp BP Pulse Ox 98.1 F 58 L 18 138/84 98 12/29/17 07:00 12/29/17 08:00 12/29/17 07:00 12/29/17 07:00 12/29/17 07:00 Intake and Output: 12/29/17 12/29/17 06:59 18:59 Intake Total 320 Balance 320 - Medications Medications: Current Medications Albuterol/Ipratropium (Duoneb 3 Mg/0.5 Mg (3 Ml) Ud) 3 ml INH RQ6 [facility] Last Admin: 12/29/17 13:10 Dose: 3 ml Aspirin (Ecotrin) 81 mg PO DAILY [facility] Last Admin: 12/29/17 09:49 Dose: 81 mg Belladonna/Phenobarbital () 1 tab PO TID [facility] Last Admin: 12/29/17 09:48 Dose: 1 tab Clonazepam (Klonopin) 1 mg PO TID [facility] Last Admin: 12/29/17 10:01 Dose: 1 mg Docusate Sodium (Colace) 100 mg PO DAILY [facility] Last Admin: 12/29/17 09:49 Dose: 100 mg Fluticasone Propionate (Flonase) 1 spr MARIELENA Q12 [facility] Last Admin: 12/29/17 09:55 Dose: Not Given Guaifenesin (Mucinex La) 600 mg PO BID [facility] Last Admin: 12/29/17 09:49 Dose: 600 mg Heparin Sodium (Porcine) (Heparin) 5,000 units SC Q12 [facility] Last Admin: 12/29/17 09:52 Dose: 5,000 units Hydrochlorothiazide (Microzide) 12.5 mg PO DAILY [facility] Last Admin: 12/29/17 09:49 Dose: 12.5 mg Ceftriaxone Sodium 1 gm/ (Sodium Chloride) 100 mls @ 100 mls/hr IVPB DAILY [facility] PRN Reason: Protocol Last Admin: 12/29/17 09:54 Dose: 100 mls/hr Azithromycin 500 mg/ Sodium (Chloride) 250 mls @ 250 mls/hr IVPB DAILY@1100 [facility] PRN Reason: Protocol Last Admin: 12/29/17 12:04 Dose: 250 mls/hr Insulin Aspart (Novolog) 0 unit SC ACHS [facility] PRN Reason: Protocol Last Admin: 12/29/17 12:08 Dose: Not Given Lactulose (Enulose) 20 gm PO BID [facility] Last Admin: 12/29/17 09:51 Dose: Not Given Lactulose (Enulose) 20 gm PO HS [facility] Last Admin: 12/28/17 22:03 Dose: Not Given Losartan Potassium (Cozaar) 50 mg PO DAILY [facility] Last Admin: 12/29/17 09:48 Dose: 50 mg Metoclopramide HCl (Reglan) 5 mg PO Q6H [facility] Last Admin: 12/29/17 08:23 Dose: 5 mg Montelukast Sodium (Singulair) 10 mg PO HS [facility] Last Admin: 12/28/17 22:02 Dose: 10 mg Pantoprazole Sodium (Protonix Ec Tab) 40 mg PO DAILY [facility] Last Admin: 12/29/17 09:49 Dose: 40 mg Potassium Chloride (K-Dur 20 Meq Er Tab) 40 meq PO DAILY [facility] Last Admin: 12/29/17 09:49 Dose: 40 meq Promethazine HCl/Dextromethorphan (Phenergan Dm Syrup) 10 ml PO Q8 [facility] Last Admin: 12/29/17 05:58 Dose: 10 ml Propranolol HCl (Inderal) 5 mg PO TID [facility] Last Admin: 12/29/17 09:53 Dose: Not Given Simethicone (Mylicon Chew Tab) 80 mg PO QID [facility] Last Admin: 12/29/17 09:49 Dose: 80 mg Temazepam (Restoril) 15 mg PO HS PRN PRN Reason: Insomnia Last Admin: 12/26/17 22:06 Dose: 15 mg - Labs Labs: 12/29/17 06:17 12/29/17 06:17 - Constitutional Appears: Well - Head Exam Head Exam: ATRAUMATIC, NORMAL INSPECTION, NORMOCEPHALIC - Eye Exam Eye Exam: EOMI, Normal appearance, PERRL Pupil Exam: NORMAL ACCOMODATION, PERRL - ENT Exam ENT Exam: Mucous Membranes Moist, Normal Exam - Neck Exam Neck Exam: Full ROM, Normal Inspection. absent: Lymphadenopathy - Respiratory Exam Respiratory Exam: Decreased Breath Sounds - Cardiovascular Exam Cardiovascular Exam: REGULAR RHYTHM, +S1, +S2 - GI/Abdominal Exam GI & Abdominal Exam: Soft, Diminished Bowel Sounds - Rectal Exam Rectal Exam: Deferred
[2017-12-29 13:59] VITALS: PULSE 65
== END 2017-12-29 15:35 | disposition home or self-care (01) ==
LOC: C.ER 07:35 → C.9E 09:52 → C.6T 14:05
PROVIDERS: ADMIT Internal Medicine Nephrology; ATTEND Internal Medicine Nephrology
DX: J44.1 Chronic obstructive pulmonary disease with (acute) exacerbation (principal); F41.9 Anxiety disorder, unspecified; E78.00 Pure hypercholesterolemia, unspecified; I25.10 Atherosclerotic heart disease of native coronary artery without angina pectoris; I48.91 Unspecified atrial fibrillation; I50.9 Heart failure, unspecified; I11.0 Hypertensive heart disease with heart failure; J30.9 Allergic rhinitis, unspecified; Z87.891 Personal history of nicotine dependence; Z86.73 Personal history of transient ischemic attack (TIA), and cerebral infarction without residual deficits; E11.9 Type 2 diabetes mellitus without complications; Z95.5 Presence of coronary angioplasty implant and graft; Z79.4 Long term (current) use of insulin; G47.00 Insomnia, unspecified
CPT/HCPCS: 36415; 71045; 71046; 80053; 82948; 83735; 83880; 84100; 84484; 85025; 94640; 96365; 96374; 99285; G0378; J0456; J0696; J1644; J1885; J2920; J2930; J3480; J7050

== ENCOUNTER 2018-01-12 19:50 | Observation (INO) | payer MEDICARE, MEDICAID ==
[2018-01-12 19:51] VITALS: BMI 41.5
--- NOTE | 2018-01-12 21:24 | C.PDOC ---
History Of Present Illness 57 year old female presents to the emergency department with complaints of chest pain, back pain, headache, dizziness, and lightheadedness. Patient last presented to the ED on December 25 and was admitted until December 29 for pneumonia. Patient has a history of Atrial fibrillation, step 2 ablations, and is currently in sinus rhythm. Patient's history also includes hypertension, diabetes, COPD, CHF, depression, gastritis, and hypercholesterolemia. Patient's past surgical history includes two cardiac stents placed as well as a cholecystectomy. Time Seen by Provider: 01/12/18 21:17 Chief Complaint (Nursing): Weakness/Neurological Deficit History Per: Patient History/Exam Limitations: no limitations Onset/Duration Of Symptoms: Days Current Symptoms Are (Timing): Still Present Past Medical History Reviewed: Historical Data, Nursing Documentation, Vital Signs Vital Signs: Last Vital Signs Temp 98 F 01/12/18 20:00 Pulse 80 01/12/18 20:00 Resp 20 01/12/18 20:00 BP 111/72 01/12/18 20:00 Pulse Ox 97 01/13/18 00:37 - Medical History PMH: Anxiety, Arthritis (hands), Atrial Fibrillation, CAD, Cardia Arrhythmia, CHF, COPD, Depression, Diabetes (hypoglycemia), Gastritis, Gall Bladder Disease , HTN, Hypercholesterolemia Denies: Chronic Kidney Disease Surgical History: Cholecystectomy, Coronary Stent (x2) - [facility] Procedures EXCISION OF STOMACH, ENDO, DIAGN (11/25/17) Family History: States: No Known Family Hx - Social History Hx Tobacco Use: Yes (QUIT) Hx Alcohol Use: No Hx Substance Use: No - Immunization History Hx Tetanus Toxoid Vaccination: No Hx Influenza Vaccination: No Hx Pneumococcal Vaccination: No Review Of Systems Except As Marked, All Systems Reviewed And Found Negative. Constitutional: Negative for: Fever, Chills, Sweats Eyes: Negative for: Pain, Vision Change, Conjunctivae Inflammation ENT: Negative for: Ear Pain, Ear Discharge, Nose Pain Cardiovascular: Positive for: Chest Pain. Negative for: Palpitations, Orthopnea , Paroxysmal Noc. Dyspnea Respiratory: Positive for: Cough. Negative for: Shortness of Breath, Hemoptysis , SOB with Excertion, Pleuritic Pain, Sputum Gastrointestinal: Positive for: Nausea, Abdominal Pain. Negative for: Vomiting , Constipation, Melena, Hematochezia Genitourinary: Negative for: Dysuria, Frequency, Incontinence Musculoskeletal: Positive for: Back Pain. Negative for: Neck Pain, Shoulder Pain, Arm Pain Skin: Negative for: Rash Neurological: Positive for: Weakness, Headache, Dizziness. Negative for: Numbness, Incoordination, Change in Speech Psych: Negative for: Anxiety, Depression Physical Exam - Physical Exam Appears: Non-toxic, No Acute Distress Skin: Normal Color, Warm, Dry Head: Atraumatic, Normacephalic Eye(s): bilateral: Normal Inspection, PERRL, EOMI Ear(s): Bilateral: Normal Nose: Normal Oral Mucosa: Moist Tongue: Normal Appearing Lips: Normal Appearing Teeth: Normal Dentition Gingiva: Normal Appearing Neck: Normal ROM, Supple Chest: Symmetrical Cardiovascular: Rhythm Regular, No Murmur Respiratory: Wheezing (mild expiratory wheeze), Other (cough) Gastrointestinal/Abdominal: Normal Exam, Soft, No Tenderness, No Distention Extremity: Normal ROM Extremity: Bilateral: Atraumatic, Normal Color And Temperature Neurological/Psych: Oriented x3, Normal Speech, Normal Cognition ED Course And Treatment - Laboratory Results Result Diagrams: 01/12/18 22:19 01/12/18 22:19 O2 Sat by Pulse Oximetry: 97 (RA) Pulse Ox Interpretation: Normal - CT Scan/US CT Head Other Rad Studies (CT/US): Read By Radiologist, Radiology Report Reviewed CT/US Interpretation: IMPRESSION: 1. Mucoperiosteal thickening in the sphenoid sinus which appears chronic. There is some fluid in the. sphenoid sinus which could be due to acute sinusitis. 2. Mild small vessel ischemic/degenerative changes. - Physician Consult Information Time Consulting Physician Contacted: 00:18 Physician Contacted: Conner Robertson Outcome Of Conversation: Patient will be admitted after speaking to Dr. Robertson. Dr. Robertson is in charge of admitting on behalf of the patient's PMD, Dr. Michael. Medical Decision Making Medical Decision Making: Plan: Venous Blood Gas CT Head w/o Contrast EKG BNP CMP Magnesium Phosphorus Troponin CBC Erythrocyte Sedimentation Rate PTT Prothrombin Time CXR Two Views Duoneb 6ml INH Blood Culture urine Culture Rn Oncology Research Nebulizer Treatment urinalysis Disposition Counseled Patient/Family Regarding: Diagnosis - Disposition Disposition Time: 00:44 Condition: GOOD Forms: [facility] ([place]an) - Clinical Impression Clinical Impression: Diabetes, Dizziness, Dizziness - Scribe Statement The provider has reviewed the documentation as recorded by the Scribe (Rigo Hodgson) Provider Attestation: All medical record entries made by the Scribe were at my direction and personally dictated by me. I have reviewed the chart and agree that the record accurately reflects my personal performance of the history, physical exam, medical decision making, and the department course for this patient. I have also personally directed, reviewed, and agree with the discharge instructions and disposition.
[2018-01-12 22:24] LABS: BASO # 0.1 K/uL (0.0-0.2); BASO % 1.4 % (0.0-2.0); EOS # 0.5 K/uL (0.0-0.7); EOS % 5.5 % (0.0-4.0); HEMOGLOBIN 12.4 g/dL (11.0-16.0); LYMPH # 3.1 K/uL (1.0-4.3); LYMPH % 36.5 % (20.0-40.0); MEAN CELL VOLUME 78.2 fL (81.0-99.0); MEAN CORPUSCULAR HEMOGLOBIN 26.7 pg (27.0-31.0); MEAN CORPUSCULAR HGB CONC 34.1 g/dL (33.0-37.0); MEAN PLATELET VOLUME 8.6 fL (7.2-11.7); MONO # 0.5 K/uL (0.0-0.8); MONO % 5.8 % (0.0-10.0); NEUT # 4.3 K/uL (1.8-7.0); NEUT % 50.8 % (50.0-75.0); NRBC % 0.2 % (0.0-2.0); RBC 4.64 Mil/uL (3.80-5.20); RED CELL DISTRIBUTION WIDTH 16.1 % (11.5-14.5); WHITE BLOOD COUNT 8.5 K/uL (4.8-10.8)
[2018-01-12 22:27] LABS: VENOUS BLOOD GAS BASE EXCESS 2.8 mmol/L (0.0-2.0); VENOUS BLOOD GAS PCO2 47 mmHg (40-60); VENOUS BLOOD GAS PO2 28 mm/Hg (30-55); VENOUS BLOOD PH 7.39 (7.32-7.43)
[2018-01-12 22:29] LABS: INR 1.1; PROTHROMBIN TIME 12.4 SECONDS (9.7-12.2)
[2018-01-12 22:38] LABS: ALT/SGPT 27 U/L (9-52); AST/SGOT 17 U/L (14-36); BLOOD UREA NITROGEN 17 mg/dL (7-17); CALCIUM 9.6 mg/dl (8.6-10.4); GFR AFRICAN-AMERICAN > 60; GFR NON-AFRICAN AMERICAN > 60
[2018-01-12 22:43] LABS: B-TYPE NATRIURETIC PEPTIDE < 11.1 pg/mL (0-900)
[2018-01-12 23:33] LABS: SQUAMOUS EPITHIAL 10 /hpf (0-5); URINE BACTERIA RARE (<OCC); URINE BILIRUBIN NEGATIVE (NEGATIVE); URINE BLOOD NEGATIVE (NEGATIVE); URINE CLARITY Hazy (Clear); URINE COLOR Yellow (YELLOW); URINE GLUCOSE (UA) NORMAL (Normal); URINE LEUKOCYTE ESTERASE 2+ Leu/uL (Negative); URINE PROTEIN NEGATIVE (NEGATIVE)
[2018-01-12] MEDS ORDERED: Albuterol-Ipratrop 3 mg / 0.5 (3 ml) UD INH STA (23:48)
[2018-01-13] MEDS ORDERED: Albuterol-Ipratrop 3 mg / 0.5 (3 ml) UD ONE ×2 (00:46)
--- NOTE | 2018-01-13 07:28 | CT ---
PROCEDURE: CT HEAD WITHOUT CONTRAST HISTORY: altered COMPARISON: None available. TECHNIQUE: Axial computed tomography images were obtained through the head/brain without intravenous contrast. Coronal and sagittal reconstructions were also acquired. Radiation dose: Total exam DLP = 853 mGy-cm. FINDINGS: HEMORRHAGE: No intracranial hemorrhage seen. BRAIN: No intraparenchymal mass identified. There is ventricular and sulcal prominence, consistent with age related volume loss. There are areas of periventricular white matter hypodensity, consistent with chronic small vessel ischemic changes. VENTRICLES: See above CALVARIUM: Intact PARANASAL SINUSES: Near complete opacification of the right sphenoid sinus with bony thickening, suggestive of chronic sinusitis. Small amount of fluid in the right sphenoid sinus in addition to mucosal thickening. Small amount of secretions in the left sphenoid sinus. Remainder of the Visualized paranasal sinuses are clear. MASTOID AIR CELLS: Visualized mastoid air cells are clear. OTHER FINDINGS: Partially visualized secretions versus polyp within the posterior right nasopharynx. IMPRESSION: No mass, hemorrhage, or acute infarct identified. Age-related changes as above. Sphenoid sinus disease as above. Correlate clinically for acute sinusitis superimposed on chronic sinusitis. Preliminary impression was provided by [facility]. Findings are concordant.
--- NOTE | 2018-01-13 07:50 | RAD ---
HISTORY: cough COMPARISON: Chest x-ray 01/12/2018 TECHNIQUE: Chest PA and lateral FINDINGS: LUNGS: No focal consolidation is seen. PLEURA: No pleural effusion is identified. CARDIOVASCULAR: Heart size is within normal limits. OSSEOUS STRUCTURES: No acute fracture identified. VISUALIZED UPPER ABDOMEN: Unremarkable. OTHER FINDINGS: None. IMPRESSION: No acute cardiopulmonary process seen.
--- NOTE | 2018-01-13 07:54 | RAD ---
HISTORY: Sepsis Patient COMPARISON: Chest x-ray 12/28/2017 TECHNIQUE: Chest one view . FINDINGS: LUNGS: No focal consolidation is seen. PLEURA: No pleural effusion is identified. CARDIOVASCULAR: Heart size is within normal limits. OSSEOUS STRUCTURES: No acute fracture identified. VISUALIZED UPPER ABDOMEN: Unremarkable. OTHER FINDINGS: None. IMPRESSION: No acute cardiopulmonary process seen.
[2018-01-13] MEDS ORDERED: Ipratropium 0.02% Inhal Soln (0.5 mg/2.5 ml) UD IH PRN (08:44)
[2018-01-13] MEDS ORDERED: Potassium Chloride 20 mEq ER Tab PO ONE (10:00)
[2018-01-13] MEDS: Saccharomyces Boulardi 250 mg Cap PO SCH (10:57)
[2018-01-13] MEDS: Potassium Chloride 10 mEq ER Tab PO SCH (10:58)
[2018-01-13] MEDS: Pantoprazole 40 mg EC Tab PO SCH (10:58)
[2018-01-13] MEDS: Propranolol 5 mg Tab PO SCH ×4 (10:59→21:07)
[2018-01-13 13:25] LABS: CK-MB < 0.22 ng/mL (0.0-3.38)
[2018-01-13] MEDS: Sucralfate 1 gm/10 ml Oral Susp UD PO SCH ×3 (13:31→21:07)
[2018-01-13] MEDS: Simethicone 80 mg Chewtab PO PRN (13:31)
--- NOTE | 2018-01-13 14:42 | CARD ---
APPROVED REPORT EKG Measurement Heart [id number] <Conclusion> Normal sinus rhythm Normal ECG
--- NOTE | 2018-01-13 17:42 | CP.PCM.HP ---
History of Present Illness - History of Present Illness History of Present Illness: 57 year old female presents with complains of dizziness, syncopal episode witnessed by daughter with brief LOC, chest pain, back pain, headache, dizziness , and lightheadedness. Patient has a history of Atrial fibrillation, s/p ablations x 2, and is currently in sinus rhythm. Patient's history also includes hypertension, diabetes, COPD, CHF, depression, gastritis, and hypercholesterolemia. Patient's past surgical history includes two cardiac stents placed as well as a cholecystectomy. Currently awake and alert and has no arrhythmias overnight. Present on Admission - Present on Admission Any Indicators Present on Admission: No History of DVT/PE: No History of Uncontrolled Diabetes: No Urinary Catheter: No Decubitus Ulcer Present: No Past Patient History - Infectious Disease Hx of Infectious Diseases: None - Tetanus Immunizations Tetanus Immunization: Unknown - Past Medical History & Family History Past Medical History?: Yes - Past Social History Smoking Status: Never Smoked - CARDIAC Hx Atrial Fibrillation: Yes Hx Cardia Arrhythmia: Yes Hx Congestive Heart Failure: Yes Hx Hypercholesterolemia: Yes Hx Hypertension: Yes - PULMONARY Hx Chronic Obstructive Pulmonary Disease (COPD): Yes - NEUROLOGICAL Hx Neurological Disorder: Yes HX Cerebrovascular Accident: Yes Hx Dizziness: Yes - HEENT Hx HEENT Problems: Yes Other/Comment: wears glasses for reading - RENAL Hx Chronic Kidney Disease: No - ENDOCRINE/METABOLIC Hx Endocrine Disorders: Yes Hx Diabetes Mellitus Type 1: Yes - HEMATOLOGICAL/ONCOLOGICAL Hx Blood Disorders: No - INTEGUMENTARY Hx Dermatological Problems: Yes Hx Eczema: Yes - MUSCULOSKELETAL/RHEUMATOLOGICAL Hx Arthritis: Yes (hands) - GASTROINTESTINAL Hx Gall Bladder Disease: Yes Hx Gastritis: Yes - GENITOURINARY/GYNECOLOGICAL Hx Genitourinary Disorders: No - PSYCHIATRIC Hx Anxiety: Yes Hx Depression: Yes Hx Substance Use: No - SURGICAL HISTORY Hx Cholecystectomy: Yes Hx Coronary Stent: Yes (x2) - ANESTHESIA Hx Anesthesia: Yes Hx Anesthesia Reactions: No Hx Malignant Hyperthermia: No Meds Allergies/Adverse Reactions: Allergies Allergy/AdvReac Type Severity Reaction Status Date / Time escitalopram [From Lexapro] AdvReac ANAPHYLAXIS Verified 01/12/18 20:05 Flu vaccine Allergy ANAPHYLAXIS Uncoded 01/12/18 20:05 pnuemonia vaccine Allergy ANAPHYLAXIS Uncoded 01/12/18 20:05 wool Allergy ANAPHYLAXIS Uncoded 01/12/18 20:05 Physical Exam - Head Exam Head Exam: NORMAL INSPECTION - Eye Exam Eye Exam: Normal appearance - ENT Exam ENT Exam: Mucous Membranes Moist - Respiratory Exam Respiratory Exam: Clear to Auscultation Bilateral - Cardiovascular Exam Cardiovascular Exam: REGULAR RHYTHM, +S1, +S2 - GI/Abdominal Exam GI & Abdominal Exam: Normal Bowel Sounds, Soft - Extremities Exam Extremities exam: Positive for: normal inspection - Neurological Exam Neurological exam: Alert, Oriented x3 - Psychiatric Exam Psychiatric exam: Flat Affect, Normal Mood - Skin Skin Exam: Normal Color Results - Vital Signs Recent Vital Signs: Last Vital Signs Temp 98.3 F 01/13/18 15:04 Pulse 86 01/13/18 15:04 Resp 18 01/13/18 15:04 BP 109/75 01/13/18 15:04 Pulse Ox 96 01/13/18 15:04 - Labs Result Diagrams: 01/12/18 22:19 01/12/18 22:19 Labs: Laboratory Results - last 24 hr 01/12/18 01/12/18 01/12/18 21:34 22:19 22:19 WBC 8.5 RBC 4.64 Hgb 12.4 Hct 36.3 MCV 78.2 L MCH 26.7 L MCHC 34.1 RDW 16.1 H Plt Count 284 MPV 8.6 Neut % (Auto) 50.8 Lymph % (Auto) 36.5 [place] % (Auto) 5.8 Eos % (Auto) 5.5 H Baso % (Auto) 1.4 Neut # (Auto) 4.3 Lymph # (Auto) 3.1 [place] # (Auto) 0.5 Eos # (Auto) 0.5 Baso # (Auto) 0.1 ESR 98 H PT 12.4 H INR 1.1 APTT 32 pO2 VBG pH VBG pCO2 VBG HCO3 VBG Total CO2 VBG O2 Sat (Calc) VBG Base Excess VBG Potassium Glucose Lactate Sodium Potassium Chloride Carbon Dioxide Anion Gap BUN Creatinine Est GFR ( Amer) Est GFR (Non-Af Amer) POC Glucose (mg/dL) 105 Random Glucose Calcium Phosphorus Magnesium Total Bilirubin AST ALT Alkaline Phosphatase Total Creatine Kinase CK-MB (Mass) Troponin I NT-Pro-B Natriuret Pep Total Protein Albumin Globulin Albumin/Globulin Ratio Venous Blood Potassium Urine Color Urine Clarity Urine pH Ur Specific Lane Urine Protein Urine Glucose (UA) Urine Ketones Urine Blood Urine Nitrate Urine Bilirubin Urine Urobilinogen Ur Leukocyte Esterase Urine WBC (Auto) Urine RBC (Auto) Ur Squamous Epith Cells Urine Bacteria 01/12/18 01/12/18 01/12/18 22:19 22:24 23:21 WBC RBC Hgb Hct MCV MCH MCHC RDW Plt Count MPV Neut % (Auto) Lymph % (Auto) [place] % (Auto) Eos % (Auto) Baso % (Auto) Neut # (Auto) Lymph # (Auto) [place] # (Auto) Eos # (Auto) Baso # (Auto) ESR PT INR APTT pO2 28 L VBG pH 7.39 VBG pCO2 47 VBG HCO3 25.9 VBG Total CO2 29.9 H VBG O2 Sat (Calc) 56.5 VBG Base Excess 2.8 H VBG Potassium 3.2 L Glucose 92 Lactate 1.0 Sodium 143 143.0 Potassium 3.5 L Chloride 104 108.0 H Carbon Dioxide 27 Anion Gap 15 BUN 17 Creatinine 0.9 Est GFR ( Amer) > 60 Est GFR (Non-Af Amer) > 60 POC Glucose (mg/dL) Random Glucose 103 Calcium 9.6 Phosphorus 2.9 Magnesium 1.7 Total Bilirubin 0.4 AST 17 ALT 27 Alkaline Phosphatase 120 Total Creatine Kinase CK-MB (Mass) Troponin I < 0.0120 NT-Pro-B Natriuret Pep < 11.1 Total Protein 8.1 Albumin 4.0 Globulin 4.1 H Albumin/Globulin Ratio 1.0 Venous Blood Potassium 3.2 L Urine Color Yellow Urine Clarity Hazy Urine pH 5.[address] 1.029 Urine Protein Negative Urine Glucose (UA) Normal Urine Ketones Negative Urine Blood Negative Urine Nitrate Negative Urine Bilirubin Negative Urine Urobilinogen 2.0 H Ur Leukocyte Esterase 2+ H Urine WBC (Auto) 11 H Urine RBC (Auto) 2 Ur Squamous Epith Cells 10 H Urine Bacteria Rare 01/13/18 01/13/18 01/13/18 02:26 06:10 11:30 WBC RBC Hgb Hct MCV MCH MCHC RDW Plt Count MPV Neut % (Auto) Lymph % (Auto) [place] % (Auto) Eos % (Auto) Baso % (Auto) Neut # (Auto) Lymph # (Auto) [place] # (Auto) Eos # (Auto) Baso # (Auto) ESR PT INR APTT pO2 VBG pH VBG pCO2 VBG HCO3 VBG Total CO2 VBG O2 Sat (Calc) VBG Base Excess VBG Potassium Glucose Lactate Sodium Potassium Chloride Carbon Dioxide Anion Gap BUN Creatinine Est GFR ( Amer) Est GFR (Non-Af Amer) POC Glucose (mg/dL) 145 H 81 Random Glucose Calcium Phosphorus Magnesium Total Bilirubin AST ALT Alkaline Phosphatase Total Creatine Kinase 38 CK-MB (Mass) < 0.22 Troponin I < 0.0120 NT-Pro-B Natriuret Pep Total Protein Albumin Globulin Albumin/Globulin Ratio Venous Blood Potassium Urine Color Urine Clarity Urine pH Ur Specific Lane Urine Protein Urine Glucose (UA) Urine Ketones Urine Blood Urine Nitrate Urine Bilirubin Urine Urobilinogen Ur Leukocyte Esterase Urine WBC (Auto) Urine RBC (Auto) Ur Squamous Epith Cells Urine Bacteria 01/13/18 01/13/18 12:12 16:39 WBC RBC Hgb Hct MCV MCH MCHC RDW Plt Count MPV Neut % (Auto) Lymph % (Auto) [place] % (Auto) Eos % (Auto) Baso % (Auto) Neut # (Auto) Lymph # (Auto) [place] # (Auto) Eos # (Auto) Baso # (Auto) ESR PT INR APTT pO2 VBG pH VBG pCO2 VBG HCO3 VBG Total CO2 VBG O2 Sat (Calc) VBG Base Excess VBG Potassium Glucose Lactate Sodium Potassium Chloride Carbon Dioxide Anion Gap BUN Creatinine Est GFR ( Amer) Est GFR (Non-Af Amer) POC Glucose (mg/dL) 123 H 113 H Random Glucose Calcium Phosphorus Magnesium Total Bilirubin AST ALT Alkaline Phosphatase Total Creatine Kinase CK-MB (Mass) Troponin I NT-Pro-B Natriuret Pep Total Protein Albumin Globulin Albumin/Globulin Ratio Venous Blood Potassium Urine Color Urine Clarity Urine pH Ur Specific Lane Urine Protein Urine Glucose (UA) Urine Ketones Urine Blood Urine Nitrate Urine Bilirubin Urine Urobilinogen Ur Leukocyte Esterase Urine WBC (Auto) Urine RBC (Auto) Ur Squamous Epith Cells Urine Bacteria Assessment & Plan (1) Syncope Status: Acute (2) Dizziness Status: Acute (3) Anxiety Status: Acute (4) COPD (chronic obstructive pulmonary disease) Status: Acute (5) Chest pain Status: Acute (6) Palpitations Status: Acute (7) HTN (hypertension) Status: Chronic - Assessment and Plan (Free Text) Plan: Cardiac enzymes are negative Cardiology consult Atrovent nebs Meclazine Cardizem Propranolol Klonopin Rest as per orders DVT/GI prophalaxis
[2018-01-13 17:53] LABS: CK-MB < 0.22 ng/mL (0.0-3.38)
[2018-01-14 08:11] LABS: CK-MB < 0.22 ng/mL (0.0-3.38)
[2018-01-14 08:40] VITALS: RESP 20
--- NOTE | 2018-01-14 09:55 | CP.PCM.CON ---
History of Present Illness - History of Present Illness History of Present Illness: 57 y/o woman Presents to the emergency department with complaints of chest pain, back pain, headache, dizziness, and lightheadedness. > she reports walking to bathroom and heart racing and then passed out...no neuro deficits, no angina, no ADHF. No fevers or chills. Patient last presented to the ED on December 25 and was admitted until December 29 for pneumonia. Patient's history also includes hypertension, diabetes, COPD, CHF, depression, gastritis, and hypercholesterolemia. Patient's past surgical history includes cholecystectomy. HPI: 56 year old female with the following chronic medical problems 1. Depression/Anxiety: sees a psychiatrist at [facility] 2. Chronic HTN, 3. DM 4. Anxiety disorder CARDIAC HX: LHC 2017 at [facility] - non obstructed coronary arteries; 2D echo at [facility] 2017 normal systolic function; Nuclear stress test 2015 at [facility] is normal perfusion; S/p [place] [facility] [place] telemetry was performed in my office and those EKG strips were reviewed on this visit: NSR, occasional sinus evert. ALL OF THE EPISODES OF PALPITATIONS AND CHEST PAIN SHE REPORTED DURING THE STUDY ARE ASSOCIATED WITH NSR. PSHX: No CABG, Lay FAMHX: No Prematures ASHD or sudden in mother or father. SOCHX: No tobacco Past Patient History - Infectious Disease Hx of Infectious Diseases: None - Tetanus Immunizations Tetanus Immunization: Unknown - Past Medical History & Family History Past Medical History?: Yes - Past Social History Smoking Status: Never Smoked - CARDIAC Hx Atrial Fibrillation: Yes Hx Cardia Arrhythmia: Yes Hx Congestive Heart Failure: Yes Hx Hypercholesterolemia: Yes Hx Hypertension: Yes - PULMONARY Hx Chronic Obstructive Pulmonary Disease (COPD): Yes - NEUROLOGICAL Hx Neurological Disorder: Yes HX Cerebrovascular Accident: Yes Hx Dizziness: Yes - HEENT Hx HEENT Problems: Yes Other/Comment: wears glasses for reading - RENAL Hx Chronic Kidney Disease: No - ENDOCRINE/METABOLIC Hx Endocrine Disorders: Yes Hx Diabetes Mellitus Type 1: Yes - HEMATOLOGICAL/ONCOLOGICAL Hx Blood Disorders: No - INTEGUMENTARY Hx Dermatological Problems: Yes Hx Eczema: Yes - MUSCULOSKELETAL/RHEUMATOLOGICAL Hx Arthritis: Yes (hands) - GASTROINTESTINAL Hx Gall Bladder Disease: Yes Hx Gastritis: Yes - GENITOURINARY/GYNECOLOGICAL Hx Genitourinary Disorders: No - PSYCHIATRIC Hx Anxiety: Yes Hx Depression: Yes Hx Substance Use: No - SURGICAL HISTORY Hx Cholecystectomy: Yes Hx Coronary Stent: Yes (x2) - ANESTHESIA Hx Anesthesia: Yes Hx Anesthesia Reactions: No Hx Malignant Hyperthermia: No Meds Allergies/Adverse Reactions: Allergies Allergy/AdvReac Type Severity Reaction Status Date / Time escitalopram [From Lexapro] AdvReac ANAPHYLAXIS Verified 01/12/18 20:05 Flu vaccine Allergy ANAPHYLAXIS Uncoded 01/12/18 20:05 pnuemonia vaccine Allergy ANAPHYLAXIS Uncoded 01/12/18 20:05 wool Allergy ANAPHYLAXIS Uncoded 01/12/18 20:05 - Medications Medications: Current Medications Clonazepam (Klonopin) 1 mg PO TID [facility] Last Admin: 01/13/18 17:20 Dose: 1 mg Diltiazem HCl (Cardizem) 30 mg PO TID [facility] Last Admin: 01/13/18 17:20 Dose: 30 mg Enoxaparin Sodium (Lovenox) 40 mg SC DAILY [facility] Ipratropium [place] (Atrovent) 0.5 mg IH RQ6 PRN PRN Reason: Shortness of Breath Meclizine HCl (Antivert) 25 mg PO Q8H PRN PRN Reason: Dizziness Last Admin: 01/13/18 21:07 Dose: 25 mg Metformin HCl (Glucophage) 500 mg PO BIDCC [facility] Last Admin: 01/14/18 08:51 Dose: Not Given Metoclopramide HCl (Reglan) 10 mg IVP Q8 [facility] Last Admin: 01/14/18 05:30 Dose: 10 mg Montelukast Sodium (Singulair) 10 mg PO HS [facility] Last Admin: 01/13/18 21:07 Dose: 10 mg Pantoprazole Sodium (Protonix Ec Tab) 40 mg PO DAILY [facility] Last Admin: 01/13/18 10:58 Dose: 40 mg Potassium Chloride (Klor-Con 10) 10 meq PO DAILY [facility] Last Admin: 01/13/18 10:58 Dose: 10 meq Propranolol HCl (Inderal) 5 mg PO TID [facility] Last Admin: 01/13/18 21:07 Dose: 5 mg Saccharomyces Boulardii (Florastor) 250 mg PO DAILY [facility] Last Admin: 01/13/18 10:57 Dose: 250 mg Simethicone (Mylicon Chew Tab) 80 mg PO QID PRN PRN Reason: GI distress Last Admin: 01/13/18 13:31 Dose: 80 mg Sucralfate (Carafate Oral Susp) 1 gm PO QID [facility] Last Admin: 01/13/18 21:07 Dose: 1 gm Physical Exam - Constitutional Appears: No Acute Distress, Agitated (emotinally distressed 'crying') - Head Exam Head Exam: ATRAUMATIC, NORMAL INSPECTION, NORMOCEPHALIC - Eye Exam Eye Exam: EOMI, Normal appearance, PERRL - ENT Exam ENT Exam: Mucous Membranes Moist, Normal Oropharynx - Neck Exam Neck exam: Positive for: Normal Inspection - Respiratory Exam Respiratory Exam: Clear to Auscultation Bilateral. absent: Rhonchi, Wheezes - Cardiovascular Exam Cardiovascular Exam: REGULAR RHYTHM, +S1, +S2. absent: +S4, Systolic Murmur - GI/Abdominal Exam GI & Abdominal Exam: Normal Bowel Sounds, Soft. absent: Tenderness - Extremities Exam Extremities exam: Positive for: normal inspection, pedal pulses present. Negative for: calf tenderness, pedal edema - Neurological Exam Neurological exam: Alert, Oriented x3 - Psychiatric Exam Psychiatric exam: Agitated, Depressed - Skin Skin Exam: Normal Color, Warm Results - Vital Signs Recent Vital Signs: Last Vital Signs Temp 98.7 F 01/14/18 08:38 Pulse 85 01/14/18 08:38 Resp 20 01/14/18 08:38 BP 100/68 01/14/18 08:38 Pulse Ox 98 01/14/18 04:00 - Labs Result Diagrams: 01/12/18 22:19 01/12/18 22:19 Labs: Laboratory Results - last 24 hr 01/13/18 01/13/18 01/13/18 02:26 06:10 11:30 POC Glucose (mg/dL) 145 H 81 Total Creatine Kinase 38 CK-MB (Mass) < 0.22 Troponin I < 0.0120 01/13/18 01/13/18 01/13/18 12:12 16:39 17:12 POC Glucose (mg/dL) 123 H 113 H Total Creatine Kinase 22 L CK-MB (Mass) < 0.22 Troponin I < 0.0120 01/13/18 01/14/18 01/14/18 21:26 05:38 07:38 POC Glucose (mg/dL) 154 H 81 Total Creatine Kinase 37 CK-MB (Mass) < 0.22 Troponin I < 0.0120 Assessment & Plan - Assessment and Plan (Free Text) Assessment: Patient with syncope: likely vagal mediated: cardiac w/u to date has been negative for any pathologic or cardiac structural cause or arrythmia. 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 * Multiple holter/event recordings as outpatinet suggest NSR despite reported palpitation * EKG remains unchanged from prior: NORMAL * CT head: no acute pathology ?? sinusitis * CXR: No infiltrate, no congestion * Labs: WNL (cbc, creat, neg troponin) * Tele: remains NSR PULSE rate and BP have been normal Cont Propranalol and cardizem as prescribed WILL Sign off: patient should have psych eval and outpatient f/u for non- cardiac causes of anxiety and stress...Second opinion cardiology eval is also suggested as there are no obvious causes I can find for her symptoms. She has presented many times to hospital for similar complaints and cardiac w/u has been negative to explain any cardiac cause. Healthy diet, reassurance, regular aerobic activity as tolerated.
[2018-01-14] MEDS: Pantoprazole 40 mg EC Tab PO SCH (10:28)
[2018-01-14] MEDS: Saccharomyces Boulardi 250 mg Cap PO SCH (10:29)
[2018-01-14] MEDS: Potassium Chloride 10 mEq ER Tab PO SCH (10:29)
[2018-01-14] MEDS: Simethicone 80 mg Chewtab PO PRN (10:30)
[2018-01-14] MEDS: Propranolol 5 mg Tab PO SCH ×3 (10:30→18:28)
[2018-01-14] MEDS: Enoxaparin 40 mg Syringe SC SCH (10:31)
[2018-01-14] MEDS: Sucralfate 1 gm/10 ml Oral Susp UD PO SCH ×4 (10:31→22:52)
--- NOTE | 2018-01-14 14:24 | CP.PCM.PN ---
Subjective - Date & Time of Evaluation Date of Evaluation: 01/14/18 Time of Evaluation: 14:24 Objective - Vital Signs/Intake and Output Vital Signs (last 24 hours): Temp Pulse Resp BP Pulse Ox 98.7 F 85 20 126/80 98 01/14/18 08:38 01/14/18 08:38 01/14/18 08:38 01/14/18 10:44 01/14/18 04:00 - Medications Medications: Current Medications Clonazepam (Klonopin) 1 mg PO TID [facility] Last Admin: 01/14/18 13:13 Dose: 1 mg Diltiazem HCl (Cardizem) 30 mg PO TID [facility] Last Admin: 01/14/18 13:14 Dose: 30 mg Enoxaparin Sodium (Lovenox) 40 mg SC DAILY [facility] Last Admin: 01/14/18 10:31 Dose: 40 mg Ipratropium [place] (Atrovent) 0.5 mg IH RQ6 PRN PRN Reason: Shortness of Breath Meclizine HCl (Antivert) 25 mg PO Q8H PRN PRN Reason: Dizziness Last Admin: 01/13/18 21:07 Dose: 25 mg Metformin HCl (Glucophage) 500 mg PO BIDCC [facility] Last Admin: 01/14/18 08:51 Dose: Not Given Metoclopramide HCl (Reglan) 10 mg IVP Q8 [facility] Last Admin: 01/14/18 13:15 Dose: 10 mg Montelukast Sodium (Singulair) 10 mg PO HS [facility] Last Admin: 01/13/18 21:07 Dose: 10 mg Pantoprazole Sodium (Protonix Ec Tab) 40 mg PO DAILY [facility] Last Admin: 01/14/18 10:28 Dose: 40 mg Potassium Chloride (Klor-Con 10) 10 meq PO DAILY [facility] Last Admin: 01/14/18 10:29 Dose: 10 meq Propranolol HCl (Inderal) 5 mg PO TID [facility] Last Admin: 01/14/18 13:14 Dose: 5 mg Saccharomyces Boulardii (Florastor) 250 mg PO DAILY [facility] Last Admin: 01/14/18 10:29 Dose: 250 mg Simethicone (Mylicon Chew Tab) 80 mg PO QID PRN PRN Reason: GI distress Last Admin: 01/14/18 10:30 Dose: 80 mg Sucralfate (Carafate Oral Susp) 1 gm PO QID [facility] Last Admin: 01/14/18 13:13 Dose: 1 gm - Labs Labs: 01/12/18 22:19 01/12/18 22:19 PT 12.4 SECONDS (9.7-12.2) H 01/12/18 22:19 INR 1.1 01/12/18 22:19 APTT 32 SECONDS (21-34) 01/12/18 22:19 Assessment and Plan (1) Syncope Status: Acute (2) Dizziness Status: Acute (3) Anxiety Status: Acute (4) COPD (chronic obstructive pulmonary disease) Status: Acute (5) Chest pain Status: Acute (6) Palpitations Status: Acute (7) HTN (hypertension) Status: Chronic
[2018-01-15] MEDS: Propranolol 5 mg Tab PO SCH ×3 (10:08→18:52)
[2018-01-15] MEDS: Pantoprazole 40 mg EC Tab PO SCH (10:08)
[2018-01-15] MEDS: Sucralfate 1 gm/10 ml Oral Susp UD PO SCH ×4 (10:09→22:19)
[2018-01-15] MEDS: Enoxaparin 40 mg Syringe SC SCH (10:09)
[2018-01-15] MEDS: Saccharomyces Boulardi 250 mg Cap PO SCH (10:09)
[2018-01-15] MEDS: Potassium Chloride 10 mEq ER Tab PO SCH (10:09)
[2018-01-15] MEDS ORDERED: Promethazine 12.5 mg/10 ml Syrup PO PRN (10:50)
[2018-01-15] MEDS ORDERED: guaiFENesin DM 200 mg-20 mg/10 ml UD PO PRN (11:42)
[2018-01-15] MEDS: Ipratropium 0.02% Inhal Soln (0.5 mg/2.5 ml) UD IH SCH (13:06)
[2018-01-15] MEDS: Simethicone 80 mg Chewtab PO PRN (14:07)
--- NOTE | 2018-01-15 15:01 | PCM.PSYCH ---
Initial Psychiatric Evaluation - Initial Psychiatric Evaluation Type of Admission: Voluntary Legal Status: Capacity Chief Complaint (in patient's own words): "I am not depressed" History of Present Illness and Precipitating Events: This is a 57 year old AA female patient who presented complains of dizziness, syncopal, episode witnessed by daughter with brief LOC, chest pain, back pain, headache, dizziness, and lightheadedness. Patient has a history of atrial fibrillation, s/p ablations x2 and is currently in sinus rhythm. Patient was seen at bedside and denies feeling of depression, denies anxiety, and denies suicidal ideations. Patient denies change in sleep, decrease in interests, decrease in concentration, decrease in appetite, and denies any feeling of guilt. Patient does report she is worried and upset about the management for her heart problems. She has a long history of chronic palpitation and has been tested thoroughly by several cardiologists with no definitive treatment or plan. She re-iterates she is not depressed or having any anxiety. On a prior admission for another medical issue, patient was seen for psychiatry consult and was confused as to why she was being seen by a psychiatrist and again reported no feelings of depression. PMHx: Atrial fibrillation; hypertension; diabetes; COPD; CHF; gastritis; hypercholesterolemia PSHx: Two cardiac stents; cholecystectomy FamHx: Denies Allergies: Escitalopram, Flu Vaccine, Pneumonia Vaccine, Verapamil, Wool Social: Denies smoking, alcohol, and illicit drug use. Current Medications: Active Medications Generic Name Dose Route Start Last Admin Trade Name Freq PRN Reason Stop Dose Admin Clonazepam 1 mg 01/13/18 10:01/15/18 14:00 Klonopin PO 1 mg TID [facility] Administration Diltiazem HCl 30 mg 01/13/18 10:00 01/15/18 14:00 Cardizem PO 30 mg TID [facility] Administration Enoxaparin Sodium 40 mg 01/14/18 10:00 01/15/18 10:09 Lovenox SC 40 mg DAILY [facility] Administration Guaifenesin/Dextromethorphan 10 ml 01/15/18 11:42 01/15/18 13:59 Robitussin Dm PO 10 ml Q4H PRN Administration Cough and congestion Ipratropium [place] 0.5 mg 01/15/18 14:00 01/15/18 13:06 Atrovent IH 0.5 mg RQ6 [facility]IA Administration Meclizine HCl 25 mg 01/13/18 08:45 01/13/18 21:07 Antivert PO 25 mg Q8H PRN Administration Dizziness Metformin HCl 500 mg 01/13/18 09:00 01/15/18 08:09 Glucophage PO Not Given BIDCC [facility] Metoclopramide HCl 10 mg 01/13/18 22:00 01/15/18 14:00 Reglan IVP 10 mg Q8 [facility] Administration Montelukast Sodium 10 mg 01/13/18 22:00 01/14/18 22:50 Singulair PO 10 mg HS [facility] Administration Pantoprazole Sodium 40 mg 01/13/18 10:00 01/15/18 10:08 Protonix Ec Tab PO 40 mg DAILY [facility] Administration Potassium Chloride 10 meq 01/13/18 10:00 01/15/18 10:09 Klor-Con 10 PO 10 meq DAILY [facility] Administration Propranolol HCl 5 mg 01/13/18 10:00 01/15/18 13:59 Inderal PO 5 mg TID [facility] Administration Saccharomyces Boulardii 250 mg 01/13/18 10:00 01/15/18 10:09 Florastor PO 250 mg DAILY [facility] Administration Fluticasone/Salmeterol 1 puff 01/15/18 20:00 Advair Diskus 250/50 INH RQ12 [facility] Simethicone 80 mg 01/13/18 12:16 01/15/18 14:07 Mylicon Chew Tab PO 80 mg QID PRN Administration GI distress Sucralfate 1 gm 01/13/18 14:00 01/15/18 13:59 Carafate Oral Susp PO 1 gm QID [facility] Administration Past Psychiatric History - Past Psychiatric History Previous Treatment History: None Pertinent Medical Hx (Current Medical&Sleep Prob, Allergies): Allergies Allergy/AdvReac Type Severity Reaction Status Date / Time escitalopram [From Lexapro] AdvReac ANAPHYLAXIS Verified 01/12/18 20:05 Flu vaccine Allergy ANAPHYLAXIS Uncoded 01/12/18 20:05 pnuemonia vaccine Allergy ANAPHYLAXIS Uncoded 01/12/18 20:05 wool Allergy ANAPHYLAXIS Uncoded 01/12/18 20:05 Albuterol HFA [Ventolin HFA 90 mcg/actuation (8 g)] 2 puff IH [id number] PRN #1 inhaler 10/13/13 metFORMIN [glucOPHAGE] 500 mg PO PRN PRN 01/10/17 Montelukast [Singulair] 10 mg PO DAILY #30 01/14/17 clonazePAM [Klonopin] 1 mg PO TID tab 01/14/17 Omeprazole 20 mg PO DAILY #30 capsule. 12/02/17 Albuterol/Ipratropium [Combivent Respimat] 1 puff IH Q6H PRN #1 inhaler Budesonide/Formoterol Fumarate [Symbicort] 1 aer IH Q12H #1 aer 12/29/17 Potassium Chloride 10 meq PO DAILY #30 tab.er.prt 12/29/17 Saccharomyces Boulardi [Florastor] 250 mg PO DAILY #10 cap 12/29/17 Diltiazem HCl [Cardizem] 1 tab PO TID 01/12/18 Propranolol [Inderal] 10 mg PO HS 01/13/18 Review of Systems - Review of Systems All systems: reviewed and no additional remarkable complaints except - Psychiatric Psychiatric: Anxiety, Irritability. absent: Suicidal Ideation Mental Status Examination - Personal Presentation Personal Presentation: Looks stated age - Affect Affect: Constricted - Reliability in Providing Information Reliability in Providing Information: Good - Speech Speech: Organized - Mood Mood: Anxious - Formal Thought Process Formal Thought Process: No Impairment - Obsessions/Compulsions Obsessions: No Compulsions: No - Cognitive Functions Orientation: Person, Place, Situation, Time Sensorium: Alert Attention/Concentration: Attentive Abstract Thinking: [place] Estimate of Intelligence: Below average Judgement: Imparied, as evidence by: Poor judgement, Intact, as evidence by: Insight regarding need for hospitalization - Limitations Limitations: Living alone DSM 5 DX - DSM 5 DSM 5 Diagnosis: generalized anxiety disorder - Recommended/Plan of Treatment Treatment Recommendations and Plan of Treatment: supportive therapy Psychoeducation gabapentin 100 mg by mouth TID Klonopin 0.5 mg by mouth twice a day patient psychiatrically stable and clear for discharge
--- NOTE | 2018-01-15 19:17 | CP.PCM.PN ---
Subjective - Date & Time of Evaluation Date of Evaluation: 01/15/18 Time of Evaluation: 16:15 Objective - Vital Signs/Intake and Output Vital Signs (last 24 hours): Temp Pulse Resp BP Pulse Ox 98.0 F 75 20 115/74 96 01/15/18 15:00 01/15/18 15:00 01/15/18 15:00 01/15/18 15:00 01/15/18 15:00 Intake and Output: 01/15/18 01/16/18 18:59 06:59 Intake Total 760 Balance 760 - Medications Medications: Current Medications Clonazepam (Klonopin) 1 mg PO TID [facility] Last Admin: 01/15/18 18:52 Dose: 1 mg Diltiazem HCl (Cardizem) 30 mg PO TID [facility] Last Admin: 01/15/18 18:52 Dose: 30 mg Enoxaparin Sodium (Lovenox) 40 mg SC DAILY [facility] Last Admin: 01/15/18 10:09 Dose: 40 mg Gabapentin (Neurontin) 100 mg PO TID [facility] Last Admin: 01/15/18 18:52 Dose: 100 mg Guaifenesin/Dextromethorphan (Robitussin Dm) 10 ml PO Q4H PRN PRN Reason: Cough and congestion Last Admin: 01/15/18 13:59 Dose: 10 ml Ipratropium [place] (Atrovent) 0.5 mg IH RQ6 [facility] Last Admin: 01/15/18 13:06 Dose: 0.5 mg Meclizine HCl (Antivert) 25 mg PO Q8H PRN PRN Reason: Dizziness Last Admin: 01/13/18 21:07 Dose: 25 mg Metformin HCl (Glucophage) 500 mg PO BIDCC [facility] Last Admin: 01/15/18 18:57 Dose: Not Given Metoclopramide HCl (Reglan) 10 mg IVP Q8 [facility] Last Admin: 01/15/18 14:00 Dose: 10 mg Montelukast Sodium (Singulair) 10 mg PO HS [facility] Last Admin: 01/14/18 22:50 Dose: 10 mg Pantoprazole Sodium (Protonix Ec Tab) 40 mg PO DAILY [facility] Last Admin: 01/15/18 10:08 Dose: 40 mg Potassium Chloride (Klor-Con 10) 10 meq PO DAILY [facility] Last Admin: 01/15/18 10:09 Dose: 10 meq Propranolol HCl (Inderal) 5 mg PO TID [facility] Last Admin: 01/15/18 18:52 Dose: 5 mg Saccharomyces Boulardii (Florastor) 250 mg PO DAILY [facility] Last Admin: 01/15/18 10:09 Dose: 250 mg Fluticasone/Salmeterol (Advair Diskus 250/50) 1 puff INH RQ12 [facility] Simethicone (Mylicon Chew Tab) 80 mg PO QID PRN PRN Reason: GI distress Last Admin: 01/15/18 14:07 Dose: 80 mg Sucralfate (Carafate Oral Susp) 1 gm PO QID [facility] Last Admin: 01/15/18 18:52 Dose: 1 gm - Labs Labs: 01/12/18 22:19 01/12/18 22:19 PT 12.4 SECONDS (9.7-12.2) H 01/12/18 22:19 INR 1.1 01/12/18 22:19 APTT 32 SECONDS (21-34) 01/12/18 22:19 Assessment and Plan (1) Syncope Status: Acute (2) Dizziness Status: Acute (3) Anxiety Status: Acute (4) COPD (chronic obstructive pulmonary disease) Status: Acute (5) Chest pain Status: Acute (6) Palpitations Status: Acute (7) HTN (hypertension) Status: Chronic
[2018-01-15] MEDS ORDERED: Fluticasone-Salmeterol 250-50mcg Diskus INH SCH (20:00)
[2018-01-16] MEDS: Ipratropium 0.02% Inhal Soln (0.5 mg/2.5 ml) UD IH SCH ×3 (01:34→13:07)
[2018-01-16 07:56] VITALS: TEMP 97.5; O2SAT 98
[2018-01-16] MEDS: Saccharomyces Boulardi 250 mg Cap PO SCH (10:45)
[2018-01-16] MEDS: Sucralfate 1 gm/10 ml Oral Susp UD PO SCH ×3 (10:46→16:18)
[2018-01-16] MEDS: Potassium Chloride 10 mEq ER Tab PO SCH (10:46)
[2018-01-16] MEDS: Pantoprazole 40 mg EC Tab PO SCH (10:46)
[2018-01-16] MEDS: Propranolol 5 mg Tab PO SCH ×3 (10:46→16:19)
[2018-01-16] MEDS: Enoxaparin 40 mg Syringe SC SCH (10:47)
[2018-01-16 12:04] VITALS: PULSE 64
[2018-01-16 13:28] VITALS: BP 118/82
--- NOTE | 2018-01-16 18:05 | CP.PCM.PN ---
Subjective - Date & Time of Evaluation Date of Evaluation: 01/16/18 Time of Evaluation: 11:00 - Subjective Subjective: Alert, oriented, not very active. No wheezing , sob or chest pains, NAD. Objective - Vital Signs/Intake and Output Vital Signs (last 24 hours): Temp Pulse Resp BP Pulse Ox 97.5 F L 64 20 118/82 98 01/16/18 07:30 01/16/18 12:03 01/16/18 07:30 01/16/18 13:27 01/16/18 07:30 Intake and Output: 01/16/18 01/16/18 06:59 18:59 Intake Total 500 Balance 500 - Labs Labs: 01/12/18 22:19 01/12/18 22:19 PT 12.4 SECONDS (9.7-12.2) H 01/12/18 22:19 INR 1.1 01/12/18 22:19 APTT 32 SECONDS (21-34) 01/12/18 22:19 Assessment and Plan - Assessment and Plan (Free Text) Assessment: Patient admitted with sob, COPD, AMS, HTN, seen and examined. Alert and oriented x3, no sob or chest pains. Discussed with DR Robertson, plan to discharge home today with family. RX given for gabapentin and propanolol, rest of the medications she have at home as per patient.Advised to follow up with her PMD in 1 week.
== END 2018-01-16 16:38 | disposition home or self-care (01) ==
LOC: C.ER 19:50 → C.9E 01-13 00:16 → C.6T 01-13 01:47
PROVIDERS: ADMIT Internal Medicine Critical Care Medicine; ATTEND Internal Medicine Critical Care Medicine
DX: R07.9 Chest pain, unspecified (principal); I25.10 Atherosclerotic heart disease of native coronary artery without angina pectoris; J44.9 Chronic obstructive pulmonary disease, unspecified; I50.9 Heart failure, unspecified; I48.91 Unspecified atrial fibrillation; F41.1 Generalized anxiety disorder; I11.0 Hypertensive heart disease with heart failure; E78.00 Pure hypercholesterolemia, unspecified; E10.9 Type 1 diabetes mellitus without complications; Z79.4 Long term (current) use of insulin; Z86.73 Personal history of transient ischemic attack (TIA), and cerebral infarction without residual deficits; Z95.5 Presence of coronary angioplasty implant and graft; Z90.49 Acquired absence of other specified parts of digestive tract
CPT/HCPCS: 36415; 70450; 71045; 71046; 80053; 81001; 82803; 82948; 83735; 83880; 84100; 84484; 85025; 85610; 85651; 85730; 87040; 87086; 93005; 94640; 96372; 96374; 96376; 99285; G0378; J1650; J2765

== ENCOUNTER 2018-01-30 14:36 | Observation (INO) | payer MEDICARE, MEDICAID ==
[2018-01-30 14:36] VITALS: BMI 41.5
[2018-01-30] MEDS ORDERED: Alum-Mag Hydrox-Simethicone Susp (30 mL) PO STA (15:10)
--- NOTE | 2018-01-30 15:16 | C.PDOC ---
History Of Present Illness Patient is a 57 y/o female, with a Hx of Afib, CHF, COPD, HTN, DM, and GERD, who presents to the ED with daughter complaining of epigastric abdominal pain and tight chest pain. Patient has a Hx of palpitations and chest pain intermittently for the last few months; patient notes experiencing symptoms for the last 3-4 days but symptoms worsened this morning, prompting visit. Patient adds feeling lightheaded and having blurred vision. Patient was scheduled by Dr. Posadas for a stress test this 02/04. PMD is Dr Raz Zuñiga. Patient reports taking aspirin 81mg but denies taking any today. Patient admits to nausea but denies vomiting. No other physical complaints at this time. Time Seen by Provider: 01/30/18 14:46 Chief Complaint (Nursing): Dizziness/Lightheaded History Per: Patient History/Exam Limitations: no limitations Onset/Duration Of Symptoms: Hrs (this morning), Worse Since Current Symptoms Are (Timing): Still Present Fall Associated With With Symptoms: No Past Medical History Reviewed: Historical Data, Nursing Documentation, Vital Signs Vital Signs: Last Vital Signs Temp 98.1 F 01/30/18 21:30 Pulse 67 01/30/18 21:30 Resp 18 01/30/18 21:30 BP 104/64 01/30/18 21:30 Pulse Ox 97 01/30/18 21:30 - Medical History PMH: Anxiety, Arthritis (hands), Atrial Fibrillation, CAD, Cardia Arrhythmia, CHF, COPD, Depression, Diabetes (hypoglycemia), Gastritis, Gall Bladder Disease , HTN, Hypercholesterolemia Denies: Chronic Kidney Disease Surgical History: Cholecystectomy, Coronary Stent (x2) - [facility] Procedures EXCISION OF STOMACH, ENDO, DIAGN (11/25/17) Family History: States: No Known Family Hx - Social History Hx Tobacco Use: Yes (QUIT) Hx Alcohol Use: No Hx Substance Use: No - Immunization History Hx Tetanus Toxoid Vaccination: No Hx Influenza Vaccination: No Hx Pneumococcal Vaccination: No Review Of Systems Eyes: Positive for: Vision Change (bilateral blurred vision) Cardiovascular: Positive for: Chest Pain (tight) Gastrointestinal: Positive for: Nausea, Abdominal Pain (epigastric). Negative for: Vomiting Neurological: Positive for: Other (lightheadedness) Physical Exam - Physical Exam Additional Physical Exam Comments: Constitutional: No acute distress. Head: Normocephalic. Atraumatic. Eyes: PERRL. ENT: Moist mucous membranes. Neck: Supple. Cardiovascular: Regular rate. Radial pulse 2+ bilaterally. Chest: Reproduceable chest tenderness on palpation. No rebound or guarding. Respiratory: Clear to auscultation bilaterally. GI: Soft. Nontender. Nondistended. Back: No CVA tenderness. Musculoskeletal: No tenderness or swelling of extremities. Skin: No rash. Neurologic: Alert, no focal deficit. ED Course And Treatment - Laboratory Results Result Diagrams: 01/30/18 17:50 01/30/18 17:50 ECG: Interpreted By Me, Viewed By Me ECG Rhythm: Sinus Rhythm ECG Interpretation: Normal Interpretation Of ECG: no st/t wave abnormalities Rate From EC (bpm) O2 Sat by Pulse Oximetry: 99 Progress Note: EKG, CXR, CBC, and blood work ordered. Pepcid, aspirin, and maalox administered. Medical Decision Making Medical Decision Making: CXR no acute disease. Aspirin administered. Dr. Zuñiga accepts patient to his service for cardiac observation. Disposition - Disposition Disposition: HOSPITALIZED Disposition Time: 18:30 Condition: GOOD - Clinical Impression Clinical Impression: Chest pain - Scribe Statement The provider has reviewed the documentation as recorded by the Scribe Jasmine Bower All medical record entries made by the Scribe were at my direction and personally dictated by me. I have reviewed the chart and agree that the record accurately reflects my personal performance of the history, physical exam, medical decision making, and the department course for this patient. I have also personally directed, reviewed, and agree with the discharge instructions and disposition.
[2018-01-30] MEDS ORDERED: Alum-Mag Hydrox-Simethicone Susp (30 mL) ONE (15:59)
[2018-01-30] MEDS ORDERED: Aspirin 325 mg EC Tablets PO ONE (15:59)
[2018-01-30 17:58] LABS: BASO # 0.1 K/uL (0.0-0.2); BASO % 1.1 % (0.0-2.0); EOS # 0.2 K/uL (0.0-0.7); EOS % 2.4 % (0.0-4.0); HEMOGLOBIN 11.7 g/dL (11.0-16.0); LYMPH # 2.8 K/uL (1.0-4.3); LYMPH % 28.7 % (20.0-40.0); MEAN CELL VOLUME 78.8 fL (81.0-99.0); MEAN CORPUSCULAR HEMOGLOBIN 25.9 pg (27.0-31.0); MEAN CORPUSCULAR HGB CONC 32.8 g/dL (33.0-37.0); MEAN PLATELET VOLUME 8.7 fL (7.2-11.7); MONO # 0.4 K/uL (0.0-0.8); MONO % 4.4 % (0.0-10.0); NEUT # 6.2 K/uL (1.8-7.0); NEUT % 63.4 % (50.0-75.0); RBC 4.53 Mil/uL (3.80-5.20); RED CELL DISTRIBUTION WIDTH 16.5 % (11.5-14.5); WHITE BLOOD COUNT 9.8 K/uL (4.8-10.8)
[2018-01-30 18:04] LABS: INR 1.2; PROTHROMBIN TIME 13.2 SECONDS (9.7-12.2)
[2018-01-30 18:13] LABS: ALBUMIN 3.9 g/dL (3.5-5.0); ALT/SGPT 18 U/L (9-52); AST/SGOT 18 U/L (14-36); BLOOD UREA NITROGEN 15 mg/dL (7-17); CALCIUM 9.4 mg/dl (8.6-10.4); GFR AFRICAN-AMERICAN > 60; GFR NON-AFRICAN AMERICAN > 60; LIPASE 201 U/L (23-300)
[2018-01-30 18:28] LABS: B-TYPE NATRIURETIC PEPTIDE 22.6 pg/mL (0-900); CK-MB 0.28 ng/mL (0.0-3.38)
--- NOTE | 2018-01-30 19:32 | RAD ---
HISTORY: chest pain COMPARISON: Comparison is made with 01/12/2018 FINDINGS: LUNGS: No evidence of a new infiltrate or consolidation in the lungs PLEURA: No significant pleural effusion identified, no pneumothorax apparent. CARDIOVASCULAR: Normal. OSSEOUS STRUCTURES: No significant abnormalities. VISUALIZED UPPER ABDOMEN: Normal. OTHER FINDINGS: None. IMPRESSION: No evidence of acute pulmonary disease or significant interval change.
[2018-01-30] MEDS ORDERED: Albuterol HFA 90 mcg/actuation (8 g) IH PRN (19:39)
[2018-01-30] MEDS ORDERED: Albuterol-Ipratrop 20 mcg/actuation (4 g) IH PRN (19:39)
--- NOTE | 2018-01-30 19:39 | CP.PCM.HP ---
Past Patient History - Infectious Disease Hx of Infectious Diseases: None - Tetanus Immunizations Tetanus Immunization: Unknown - Past Medical History & Family History Past Medical History?: Yes - Past Social History Smoking Status: Never Smoked - CARDIAC Hx Atrial Fibrillation: Yes Hx Cardia Arrhythmia: Yes Hx Congestive Heart Failure: Yes Hx Hypercholesterolemia: Yes Hx Hypertension: Yes - PULMONARY Hx Chronic Obstructive Pulmonary Disease (COPD): Yes - NEUROLOGICAL Hx Neurological Disorder: Yes HX Cerebrovascular Accident: Yes Hx Dizziness: Yes - HEENT Hx HEENT Problems: Yes Other/Comment: wears glasses for reading - RENAL Hx Chronic Kidney Disease: No - ENDOCRINE/METABOLIC Hx Endocrine Disorders: Yes Hx Diabetes Mellitus Type 1: Yes - HEMATOLOGICAL/ONCOLOGICAL Hx Blood Disorders: No - INTEGUMENTARY Hx Dermatological Problems: Yes Hx Eczema: Yes - MUSCULOSKELETAL/RHEUMATOLOGICAL Hx Arthritis: Yes (hands) - GASTROINTESTINAL Hx Gall Bladder Disease: Yes Hx Gastritis: Yes - GENITOURINARY/GYNECOLOGICAL Hx Genitourinary Disorders: No - PSYCHIATRIC Hx Anxiety: Yes Hx Depression: Yes Hx Substance Use: No - SURGICAL HISTORY Hx Cholecystectomy: Yes Hx Coronary Stent: Yes (x2) - ANESTHESIA Hx Anesthesia: Yes Hx Anesthesia Reactions: No Meds Allergies/Adverse Reactions: Allergies Allergy/AdvReac Type Severity Reaction Status Date / Time escitalopram [From Lexapro] AdvReac ANAPHYLAXIS Verified 01/30/18 14:38 Flu vaccine Allergy ANAPHYLAXIS Uncoded 01/12/18 20:05 pnuemonia vaccine Allergy ANAPHYLAXIS Uncoded 01/12/18 20:05 wool Allergy ANAPHYLAXIS Uncoded 01/12/18 20:05 Results - Vital Signs Recent Vital Signs: Last Vital Signs Temp 99.3 F 01/30/18 19:28 Pulse 72 01/30/18 19:28 Resp 20 01/30/18 19:28 BP 110/74 01/30/18 19:28 Pulse Ox 100 01/30/18 19:28 - Labs Result Diagrams: 01/30/18 17:50 01/30/18 17:50 Labs: Laboratory Results - last 24 hr 01/30/18 01/30/18 01/30/18 14:41 17:50 17:50 WBC 9.8 RBC 4.53 Hgb 11.7 Hct 35.7 MCV 78.8 L MCH 25.9 L MCHC 32.8 L RDW 16.5 H Plt Count 348 MPV 8.7 Neut % (Auto) 63.4 Lymph % (Auto) 28.7 [place] % (Auto) 4.4 Eos % (Auto) 2.4 Baso % (Auto) 1.1 Neut # (Auto) 6.2 Lymph # (Auto) 2.8 [place] # (Auto) 0.4 Eos # (Auto) 0.2 Baso # (Auto) 0.1 PT 13.2 H INR 1.2 APTT 31 Sodium Potassium Chloride Carbon Dioxide Anion Gap BUN Creatinine Est GFR ( Amer) Est GFR (Non-Af Amer) POC Glucose (mg/dL) 127 H Random Glucose Calcium Total Bilirubin AST ALT Alkaline Phosphatase Total Creatine Kinase CK-MB (Mass) Troponin I NT-Pro-B Natriuret Pep Total Protein Albumin Globulin Albumin/Globulin Ratio Lipase 01/30/18 01/30/18 17:50 18:01 WBC RBC Hgb Hct MCV MCH MCHC RDW Plt Count MPV Neut % (Auto) Lymph % (Auto) [place] % (Auto) Eos % (Auto) Baso % (Auto) Neut # (Auto) Lymph # (Auto) [place] # (Auto) Eos # (Auto) Baso # (Auto) PT INR APTT Sodium 143 Potassium 3.3 L Chloride 102 Carbon Dioxide 29 Anion Gap 16 BUN 15 Creatinine 0.8 Est GFR ( Amer) > 60 Est GFR (Non-Af Amer) > 60 POC Glucose (mg/dL) 100 Random Glucose 91 Calcium 9.4 Total Bilirubin 0.4 AST 18 ALT 18 Alkaline Phosphatase 103 Total Creatine Kinase 59 CK-MB (Mass) 0.28 Troponin I < 0.0120 NT-Pro-B Natriuret Pep 22.6 Total Protein 7.8 Albumin 3.9 Globulin 3.9 Albumin/Globulin Ratio 1.0 Lipase 201
[2018-01-31 00:50] VITALS: RESP 20
[2018-01-31 03:12] LABS: CK-MB 0.36 ng/mL (0.0-3.38)
[2018-01-31] MEDS ORDERED: Fluticasone-Salmeterol 250-50mcg Diskus IH SCH (08:30)
[2018-01-31] MEDS: Saccharomyces Boulardi 250 mg Cap PO SCH (09:52)
[2018-01-31] MEDS: Pantoprazole 40 mg EC Tab PO SCH (09:53)
[2018-01-31] MEDS: Potassium Chloride 10 mEq ER Tab PO SCH (09:53)
[2018-01-31] MEDS: Propranolol 5 mg Tab PO SCH ×3 (10:26→18:34)
[2018-01-31] MEDS: Sucralfate 1 gm/10 ml Oral Susp UD PO SCH ×2 (12:10→18:34)
[2018-01-31 12:24] LABS: CK-MB 0.31 ng/mL (0.0-3.38)
[2018-01-31] MEDS: Simethicone 80 mg Chewtab PO PRN (13:38)
--- NOTE | 2018-01-31 16:15 | CP.PCM.PN ---
Subjective - Date & Time of Evaluation Date of Evaluation: 01/31/18 Time of Evaluation: 11:20 - Subjective Subjective: clinically same awaiting cardio and pulm eval Objective - Vital Signs/Intake and Output Vital Signs (last 24 hours): Temp Pulse Resp BP Pulse Ox 98.1 F 71 20 96/63 L 96 01/31/18 08:00 01/31/18 08:00 01/31/18 08:00 01/31/18 13:40 01/31/18 08:00 - Medications Medications: Current Medications Albuterol (Ventolin Hfa 90 Mcg/Actuation (8 G)) 2 puff IH RQ6 PRN PRN Reason: Cough Albuterol/Ipratropium (Combivent Respimat) 1 puff IH Q6H PRN PRN Reason: Shortness of Breath Aspirin (Aspirin) 325 mg PO DAILY [facility] Last Admin: 01/31/18 10:00 Dose: 325 mg Clonazepam (Klonopin) 1 mg PO TID [facility] Last Admin: 01/31/18 13:37 Dose: 1 mg Diltiazem HCl (Cardizem) 30 mg PO TID [facility] Last Admin: 01/31/18 13:39 Dose: Not Given Enoxaparin Sodium (Lovenox) 40 mg SC DAILY [facility] Gabapentin (Neurontin) 100 mg PO TID [facility] Last Admin: 01/31/18 13:45 Dose: 100 mg Metformin HCl (Glucophage) 500 mg PO BIDCC PRN PRN Reason: high blood sugar Montelukast Sodium (Singulair) 10 mg PO [facility] Last Admin: 01/30/18 23:34 Dose: 10 mg Pantoprazole Sodium (Protonix Ec Tab) 40 mg PO DAILY [facility] Last Admin: 01/31/18 09:53 Dose: 40 mg Potassium Chloride (Klor-Con 10) 10 meq PO DAILY [facility] Last Admin: 01/31/18 09:53 Dose: 10 meq Propranolol HCl (Inderal) 5 mg PO TID [facility] Last Admin: 01/31/18 13:40 Dose: Not Given Propranolol HCl (Inderal) 10 mg PO [facility] Last Admin: 01/30/18 22:56 Dose: Not Given Saccharomyces Boulardii (Florastor) 250 mg PO DAILY [facility] Last Admin: 01/31/18 09:52 Dose: 250 mg Fluticasone/Salmeterol (Advair Diskus 250/50) 1 puff IH RQ12 [facility] Simethicone (Mylicon Chew Tab) 80 mg PO TID PRN PRN Reason: GI distress Last Admin: 01/31/18 13:38 Dose: 80 mg Sucralfate (Carafate Oral Susp) 1 gm PO ACTID [facility] Last Admin: 01/31/18 12:10 Dose: 1 gm - Labs Labs: 01/30/18 17:50 01/30/18 17:50 PT 13.2 SECONDS (9.7-12.2) H 01/30/18 17:50 INR 1.2 01/30/18 17:50 APTT 31 SECONDS (21-34) 01/30/18 17:50 - Constitutional Appears: Well - Head Exam Head Exam: ATRAUMATIC, NORMAL INSPECTION, NORMOCEPHALIC - Eye Exam Eye Exam: EOMI, Normal appearance, PERRL Pupil Exam: NORMAL ACCOMODATION, PERRL - ENT Exam ENT Exam: Mucous Membranes Moist, Normal Exam - Neck Exam Neck Exam: Full ROM, Normal Inspection. 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 (2) Abdominal pain Status: Acute (3) Acute bronchitis Status: Acute (4) Anxiety Status: Acute (5) Bradycardia Status: Acute (6) COPD (chronic obstructive pulmonary disease) Status: Acute (7) Chest discomfort Status: Acute (8) Chest pain Status: Acute (9) Chest pain at rest Status: Acute (10) Chr obstructive pulmonary disease w/ acute lower respiratory infxn Status: Acute (11) Diabetes Status: Acute (12) Dizziness Status: Acute (13) Dizziness Status: Acute (14) Near syncope Status: Acute (15) Palpitations Status: Acute (16) Palpitations Status: Acute (17) Panic disorder Status: Acute (18) S/P ablation of accessory bypass tract Status: Acute (19) SOB (shortness of breath) Status: Acute (20) Sinus tachycardia Status: Acute (21) Sinusitis chronic, sphenoidal Status: Acute (22) Syncope Status: Acute (23) Tachycardia Status: Acute (24) HTN (hypertension) Status: Chronic (25) Palpitations Status: Chronic - Assessment and Plan (Free Text) Plan: Chest pain - EKG and troponins negative x 3 - Warp Tester, Dr. Lynn consulted - Continue aspirin Afib - Tele monitor showing NSR despite pt reporting palpitations - Currently on cardizem 30 mg po TID and inderal 5 mg po tid GERD - Continue carafate and protonix and simtheicone DM -Continue home metformin - Accuchecks prn - Hypoglycemic protocol - Continue neurontin for neuropathy COPD - CXR was normal - Continue combivent and ventolin and singulair - Started on promethazine prn - Pulm, Dr. Robertson is consulted. Hypertension -Cardizem - Inderal 5mg PO TID History of Anxiety -Klonopin 1mg PO TID Prophylactic Measure -Lovenox -Protonix -SCDs meds and labs reviewed follow up with cardio and pulm recs ton as ordered
[2018-01-31] MEDS: Enoxaparin 40 mg Syringe SC SCH (18:34)
[2018-02-01] MEDS: Sucralfate 1 gm/10 ml Oral Susp UD PO SCH ×3 (07:57→17:05)
[2018-02-01] MEDS: Pantoprazole 40 mg EC Tab PO SCH (09:18)
[2018-02-01] MEDS: Saccharomyces Boulardi 250 mg Cap PO SCH (09:18)
[2018-02-01] MEDS: Propranolol 5 mg Tab PO SCH ×3 (09:18→19:35)
[2018-02-01] MEDS: Potassium Chloride 10 mEq ER Tab PO SCH (09:18)
[2018-02-01] MEDS: Enoxaparin 40 mg Syringe SC SCH (09:19)
--- NOTE | 2018-02-01 12:43 | CP.PCM.CON ---
History of Present Illness - History of Present Illness History of Present Illness: This is one of many hospital visits for this 57 year old woman with chest and now abdominal pain. Pt has multiple somatic complains, and is admitted to the hospital about once a month for chest pain. Pt had an AV node ablation several years ago. Pt always rules out for NM, and had a normal stress test in the past. ECG is normal. Pt was scheduled to have another stress test as an outpatient this . Pt says that she gets chest pain now all over her chest , worse when taking a deep breath. pain has lasted for several days. Review of Systems - Review of Systems All systems: reviewed and no additional remarkable complaints except (as above.) Past Patient History - Infectious Disease Hx of Infectious Diseases: None - Tetanus Immunizations Tetanus Immunization: Unknown - Past Medical History & Family History Past Medical History?: Yes - Past Social History Smoking Status: Never Smoked - CARDIAC Hx Atrial Fibrillation: Yes Hx Cardia Arrhythmia: Yes Hx Congestive Heart Failure: Yes Hx Hypercholesterolemia: Yes Hx Hypertension: Yes - PULMONARY Hx Chronic Obstructive Pulmonary Disease (COPD): Yes - NEUROLOGICAL Hx Neurological Disorder: Yes HX Cerebrovascular Accident: Yes Hx Dizziness: Yes - HEENT Hx HEENT Problems: Yes Other/Comment: wears glasses for reading - RENAL Hx Chronic Kidney Disease: No - ENDOCRINE/METABOLIC Hx Endocrine Disorders: Yes Hx Diabetes Mellitus Type 1: Yes - HEMATOLOGICAL/ONCOLOGICAL Hx Blood Disorders: No - INTEGUMENTARY Hx Dermatological Problems: Yes Hx Eczema: Yes - MUSCULOSKELETAL/RHEUMATOLOGICAL Hx Arthritis: Yes (hands) - GASTROINTESTINAL Hx Gall Bladder Disease: Yes Hx Gastritis: Yes - GENITOURINARY/GYNECOLOGICAL Hx Genitourinary Disorders: No - PSYCHIATRIC Hx Anxiety: Yes Hx Depression: Yes Hx Substance Use: No - SURGICAL HISTORY Hx Cholecystectomy: Yes Hx Coronary Stent: Yes (x2) - ANESTHESIA Hx Anesthesia: Yes Hx Anesthesia Reactions: No Meds Allergies/Adverse Reactions: Allergies Allergy/AdvReac Type Severity Reaction Status Date / Time escitalopram [From Lexapro] AdvReac ANAPHYLAXIS Verified 01/30/18 14:38 Flu vaccine Allergy ANAPHYLAXIS Uncoded 01/12/18 20:05 pnuemonia vaccine Allergy ANAPHYLAXIS Uncoded 01/12/18 20:05 wool Allergy ANAPHYLAXIS Uncoded 01/12/18 20:05 - Medications Medications: Current Medications Albuterol (Ventolin Hfa 90 Mcg/Actuation (8 G)) 2 puff IH RQ6 PRN PRN Reason: Cough Albuterol/Ipratropium (Combivent Respimat) 1 puff IH Q6H PRN PRN Reason: Shortness of Breath Aspirin (Aspirin) 325 mg PO DAILY [facility] Last Admin: 02/01/18 09:17 Dose: 325 mg Clonazepam (Klonopin) 1 mg PO TID [facility] Last Admin: 02/01/18 09:18 Dose: 1 mg Diltiazem HCl (Cardizem) 30 mg PO TID [facility] Last Admin: 02/01/18 09:18 Dose: 30 mg Enoxaparin Sodium (Lovenox) 40 mg SC DAILY [facility] Last Admin: 02/01/18 09:19 Dose: 40 mg Gabapentin (Neurontin) 100 mg PO TID [facility] Last Admin: 02/01/18 09:17 Dose: 100 mg Metformin HCl (Glucophage) 500 mg PO BIDCC PRN PRN Reason: high blood sugar Montelukast Sodium (Singulair) 10 mg PO HS [facility] Last Admin: 01/31/18 21:53 Dose: 10 mg Pantoprazole Sodium (Protonix Ec Tab) 40 mg PO DAILY [facility] Last Admin: 02/01/18 09:18 Dose: 40 mg Potassium Chloride (Klor-Con 10) 10 meq PO DAILY [facility] Last Admin: 02/01/18 09:18 Dose: 10 meq Propranolol HCl (Inderal) 5 mg PO TID [facility] Last Admin: 02/01/18 09:18 Dose: 5 mg Propranolol HCl (Inderal) 10 mg PO HS [facility] Last Admin: 01/31/18 21:57 Dose: Not Given Saccharomyces Boulardii (Florastor) 250 mg PO DAILY [facility] Last Admin: 02/01/18 09:18 Dose: 250 mg Fluticasone/Salmeterol (Advair Diskus 250/50) 1 puff IH RQ12 [facility] Simethicone (Mylicon Chew Tab) 80 mg PO TID PRN PRN Reason: GI distress Last Admin: 01/31/18 13:38 Dose: 80 mg Sucralfate (Carafate Oral Susp) 1 gm PO ACTID [facility] Last Admin: 02/01/18 12:20 Dose: 1 gm Temazepam (Restoril) 15 mg PO HS [facility] Last Admin: 01/31/18 21:53 Dose: 15 mg Tramadol HCl (Ultram) 50 mg PO Q6 PRN PRN Reason: Pain, Mild (1-3) Last Admin: 01/31/18 18:33 Dose: 50 mg Physical Exam - Head Exam Head Exam: ATRAUMATIC - Eye Exam Eye Exam: EOMI - ENT Exam ENT Exam: Mucous Membranes Moist - Respiratory Exam Respiratory Exam: Clear to Auscultation Bilateral, NORMAL BREATHING PATTERN - Cardiovascular Exam Cardiovascular Exam: REGULAR RHYTHM - Rectal Exam Rectal Exam: NORMAL INSPECTION - Exam External exam: NORMAL EXTERNAL EXAM - Back Exam Back exam: NORMAL INSPECTION - Neurological Exam Neurological exam: Alert, Normal Gait, Oriented x3 - Skin Skin Exam: Normal Color Results - Vital Signs Recent Vital Signs: Last Vital Signs Temp 98.4 F 02/01/18 09:04 Pulse 66 02/01/18 12:06 Resp 20 02/01/18 09:04 BP 109/71 02/01/18 09:16 Pulse Ox 97 02/01/18 09:04 - Labs Result Diagrams: 01/30/18 17:50 01/30/18 17:50 Labs: Laboratory Results - last 24 hr 01/31/18 01/31/18 01/31/18 06:39 11:51 17:21 POC Glucose (mg/dL) 102 99 Troponin I < 0.0120 01/31/18 02/01/18 21:30 06:55 POC Glucose (mg/dL) 95 85 Troponin I - EKG Data EKG Interpreted by: Myself EKG shows normal: Sinus rhythm Rate: Normal Assessment & Plan - Assessment and Plan (Free Text) Assessment: Pt has yet another hospital admission for non anginal chest pain. Pt does not need hospitals admission from CV standpoint. ER should review patient recodes for admitting this patient again and again. Pt is stable for discharge from cv standpoint. She can follow up with Dr farah for her outpatient stress test. Pt should be referred to pain management.
--- NOTE | 2018-02-01 14:58 | CP.PCM.CON ---
History of Present Illness - History of Present Illness History of Present Illness: 57-year-old female with past medical history of hypertension, diabetes, anxiety , COPD, SUNDAY, S/P ablation presents with complaint of chest pain, abdominal pain , shortness of breath, dizziness, fatigue and malaise. Patient only has admitted to hospital with similar complaints and all cardiac workup has been negative in the past. Patient also reports cough, clear phlegm. Patient denies any fever, chills, night sweats, hemoptysis or weight loss. Review of Systems - Review of Systems All systems: reviewed and no additional remarkable complaints except (As mentioned in HPI) Past Patient History - Infectious Disease Hx of Infectious Diseases: None - Tetanus Immunizations Tetanus Immunization: Unknown - Past Medical History & Family History Past Medical History?: Yes - Past Social History Smoking Status: Never Smoked - CARDIAC Hx Atrial Fibrillation: Yes Hx Cardia Arrhythmia: Yes Hx Congestive Heart Failure: Yes Hx Hypercholesterolemia: Yes Hx Hypertension: Yes - PULMONARY Hx Chronic Obstructive Pulmonary Disease (COPD): Yes - NEUROLOGICAL Hx Neurological Disorder: Yes HX Cerebrovascular Accident: Yes Hx Dizziness: Yes - HEENT Hx HEENT Problems: Yes Other/Comment: wears glasses for reading - RENAL Hx Chronic Kidney Disease: No - ENDOCRINE/METABOLIC Hx Endocrine Disorders: Yes Hx Diabetes Mellitus Type 1: Yes - HEMATOLOGICAL/ONCOLOGICAL Hx Blood Disorders: No - INTEGUMENTARY Hx Dermatological Problems: Yes Hx Eczema: Yes - MUSCULOSKELETAL/RHEUMATOLOGICAL Hx Arthritis: Yes (hands) - GASTROINTESTINAL Hx Gall Bladder Disease: Yes Hx Gastritis: Yes - GENITOURINARY/GYNECOLOGICAL Hx Genitourinary Disorders: No - PSYCHIATRIC Hx Anxiety: Yes Hx Depression: Yes Hx Substance Use: No - SURGICAL HISTORY Hx Cholecystectomy: Yes Hx Coronary Stent: Yes (x2) - ANESTHESIA Hx Anesthesia: Yes Hx Anesthesia Reactions: No Meds Allergies/Adverse Reactions: Allergies Allergy/AdvReac Type Severity Reaction Status Date / Time escitalopram [From Lexapro] AdvReac ANAPHYLAXIS Verified 01/30/18 14:38 Flu vaccine Allergy ANAPHYLAXIS Uncoded 01/12/18 20:05 pnuemonia vaccine Allergy ANAPHYLAXIS Uncoded 01/12/18 20:05 wool Allergy ANAPHYLAXIS Uncoded 01/12/18 20:05 - Medications Medications: Current Medications Albuterol (Ventolin Hfa 90 Mcg/Actuation (8 G)) 2 puff IH RQ6 PRN PRN Reason: Cough Albuterol/Ipratropium (Combivent Respimat) 1 puff IH Q6H PRN PRN Reason: Shortness of Breath Aspirin (Aspirin) 325 mg PO DAILY [facility] Last Admin: 02/01/18 09:17 Dose: 325 mg Clonazepam (Klonopin) 1 mg PO TID [facility] Last Admin: 02/01/18 13:41 Dose: 1 mg Diltiazem HCl (Cardizem) 30 mg PO TID [facility] Last Admin: 02/01/18 13:42 Dose: 30 mg Enoxaparin Sodium (Lovenox) 40 mg SC DAILY [facility] Last Admin: 02/01/18 09:19 Dose: 40 mg Gabapentin (Neurontin) 100 mg PO TID [facility] Last Admin: 02/01/18 13:42 Dose: 100 mg Metformin HCl (Glucophage) 500 mg PO BIDCC PRN PRN Reason: high blood sugar Montelukast Sodium (Singulair) 10 mg PO HS [facility] Last Admin: 01/31/18 21:53 Dose: 10 mg Pantoprazole Sodium (Protonix Ec Tab) 40 mg PO DAILY [facility] Last Admin: 02/01/18 09:18 Dose: 40 mg Potassium Chloride (Klor-Con 10) 10 meq PO DAILY [facility] Last Admin: 02/01/18 09:18 Dose: 10 meq Propranolol HCl (Inderal) 5 mg PO TID [facility] Last Admin: 02/01/18 13:42 Dose: 5 mg Propranolol HCl (Inderal) 10 mg PO HS [facility] Last Admin: 01/31/18 21:57 Dose: Not Given Saccharomyces Boulardii (Florastor) 250 mg PO DAILY [facility] Last Admin: 02/01/18 09:18 Dose: 250 mg Fluticasone/Salmeterol (Advair Diskus 250/50) 1 puff IH RQ12 [facility] Simethicone (Mylicon Chew Tab) 80 mg PO TID PRN PRN Reason: GI distress Last Admin: 01/31/18 13:38 Dose: 80 mg Sucralfate (Carafate Oral Susp) 1 gm PO ACTID [facility] Last Admin: 02/01/18 12:20 Dose: 1 gm Temazepam (Restoril) 15 mg PO HS [facility] Last Admin: 01/31/18 21:53 Dose: 15 mg Tramadol HCl (Ultram) 50 mg PO Q6 PRN PRN Reason: Pain, Mild (1-3) Last Admin: 02/01/18 12:45 Dose: 50 mg Physical Exam - Head Exam Head Exam: NORMAL INSPECTION - Eye Exam Eye Exam: EOMI - ENT Exam ENT Exam: Mucous Membranes Moist - Neck Exam Neck exam: Positive for: Normal Inspection - Respiratory Exam Respiratory Exam: Clear to Auscultation Bilateral - Cardiovascular Exam Cardiovascular Exam: REGULAR RHYTHM, +S1, +S2 - GI/Abdominal Exam GI & Abdominal Exam: Normal Bowel Sounds, Soft - Extremities Exam Extremities exam: Positive for: normal inspection - Neurological Exam Neurological exam: Alert, Oriented x3 Results - Vital Signs Recent Vital Signs: Last Vital Signs Temp 98.4 F 02/01/18 09:04 Pulse 64 02/01/18 13:40 Resp 20 02/01/18 09:04 BP 105/70 02/01/18 13:40 Pulse Ox 97 02/01/18 09:04 - Labs Result Diagrams: 01/30/18 17:50 01/30/18 17:50 Labs: Laboratory Results - last 24 hr 01/31/18 01/31/18 01/31/18 06:39 17:21 21:30 POC Glucose (mg/dL) 102 99 95 02/01/18 06:55 POC Glucose (mg/dL) 85 Assessment & Plan (1) Anxiety Status: Acute (2) COPD (chronic obstructive pulmonary disease) Status: Acute (3) Diabetes Status: Acute (4) Palpitations Status: Acute (5) S/P ablation of accessory bypass tract Status: Acute (6) Acute bronchitis Status: Acute - Assessment and Plan (Free Text) Plan: Advair 250/50 micrograms 1 puff twice a day Bronchodilators Add azithromycin IV 500 mg daily Singular 10 mg nightly Promethazine as needed Chest x-ray is normal Clonazepam Accu-Chek Insulin coverage DVT/GI prophylaxis
--- NOTE | 2018-02-01 15:59 | CP.PCM.PN ---
<LauraKlaudia - Last Filed: 02/01/18 15:54> Subjective - Date & Time of Evaluation Date of Evaluation: 02/01/18 Time of Evaluation: 15:54 - Subjective Subjective: PGY2 progress note for Dr. Zuñiga 57 year old female with past medical history of A fib, CHF, COPD, HTN, DM, GERD is admitted to hospital for chest pain and palpations. Patient has recurrent admissions with the same complaint. she is followed by Dr. Posadas outpt as her client relation specialist and has had stress test in past which was normal. Patient was scheduled for a repeat stress test outpt this with Dr. Posadas. Patient decribed the chest pain has sharp pain that is present with and without exertion. Denies having any SOB, abd pain, N/V/D/C, F/C, coughing. Objective - Vital Signs/Intake and Output Vital Signs (last 24 hours): Temp Pulse Resp BP Pulse Ox 97.9 F 65 20 112/68 96 02/01/18 15:52 02/01/18 15:52 02/01/18 15:52 02/01/18 15:52 02/01/18 15:52 Intake and Output: 02/01/18 02/01/18 06:59 18:59 Intake Total 400 Balance 400 - Medications Medications: Current Medications Albuterol (Ventolin Hfa 90 Mcg/Actuation (8 G)) 2 puff IH RQ6 PRN PRN Reason: Cough Albuterol/Ipratropium (Combivent Respimat) 1 puff IH Q6H PRN PRN Reason: Shortness of Breath Aspirin (Aspirin) 325 mg PO DAILY [facility] Last Admin: 02/01/18 09:17 Dose: 325 mg Clonazepam (Klonopin) 1 mg PO TID [facility] Last Admin: 02/01/18 13:41 Dose: 1 mg Diltiazem HCl (Cardizem) 30 mg PO TID [facility] Last Admin: 02/01/18 13:42 Dose: 30 mg Enoxaparin Sodium (Lovenox) 40 mg SC DAILY [facility] Last Admin: 02/01/18 09:19 Dose: 40 mg Gabapentin (Neurontin) 100 mg PO TID [facility] Last Admin: 02/01/18 13:42 Dose: 100 mg Azithromycin 500 mg/ Sodium (Chloride) 250 mls @ 250 mls/hr IVPB DAILY [facility] PRN Reason: Protocol Metformin HCl (Glucophage) 500 mg PO BIDCC PRN PRN Reason: high blood sugar Montelukast Sodium (Singulair) 10 mg PO HS [facility] Last Admin: 01/31/18 21:53 Dose: 10 mg Pantoprazole Sodium (Protonix Ec Tab) 40 mg PO DAILY [facility] Last Admin: 02/01/18 09:18 Dose: 40 mg Potassium Chloride (Klor-Con 10) 10 meq PO DAILY [facility] Last Admin: 02/01/18 09:18 Dose: 10 meq Promethazine HCl (Phenergan Syrup) 6.25 mg PO Q6 [facility] Propranolol HCl (Inderal) 5 mg PO TID [facility] Last Admin: 02/01/18 13:42 Dose: 5 mg Propranolol HCl (Inderal) 10 mg PO HS [facility] Last Admin: 01/31/18 21:57 Dose: Not Given Saccharomyces Boulardii (Florastor) 250 mg PO DAILY [facility] Last Admin: 02/01/18 09:18 Dose: 250 mg Fluticasone/Salmeterol (Advair Diskus 250/50) 1 puff IH RQ12 [facility] Simethicone (Mylicon Chew Tab) 80 mg PO TID PRN PRN Reason: GI distress Last Admin: 01/31/18 13:38 Dose: 80 mg Sucralfate (Carafate Oral Susp) 1 gm PO ACTID [facility] Last Admin: 02/01/18 12:20 Dose: 1 gm Temazepam (Restoril) 15 mg PO HS [facility] Last Admin: 01/31/18 21:53 Dose: 15 mg Tramadol HCl (Ultram) 50 mg PO Q6 PRN PRN Reason: Pain, Mild (1-3) Last Admin: 02/01/18 12:45 Dose: 50 mg - Labs Labs: 01/30/18 17:50 01/30/18 17:50 PT 13.2 SECONDS (9.7-12.2) H 01/30/18 17:50 INR 1.2 01/30/18 17:50 APTT 31 SECONDS (21-34) 01/30/18 17:50 - Constitutional Appears: Non-toxic, No Acute Distress - Head Exam Head Exam: ATRAUMATIC, NORMOCEPHALIC - ENT Exam ENT Exam: Mucous Membranes Moist - Respiratory Exam Respiratory Exam: Clear to Ausculation Bilateral. absent: Accessory Muscle Use , Rales, Rhonchi, Wheezes, Respiratory Distress - Cardiovascular Exam Cardiovascular Exam: REGULAR RHYTHM, +S1, +S2. absent: Gallop, Rubs, Murmur - GI/Abdominal Exam GI & Abdominal Exam: Soft, Normal Bowel Sounds. absent: Distended, Firm, Guarding, Rigid, Tenderness, Organomegaly - Extremities Exam Extremities Exam: absent: Pedal Edema, Tenderness - Neurological Exam Neurological Exam: Alert, Awake, Oriented x3 - Psychiatric Exam Psychiatric exam: Normal Affect, Normal Mood - Skin Skin Exam: Dry, Intact, Normal Color, Warm Assessment and Plan - Assessment and Plan (Free Text) Assessment: Chest pain - EKG and troponins negative x 3 - Gas Brazer, Dr. Lynn consulted and saw pt. Recommends pt keep appointment with Dr. Posadas on for outpt stress test - Continue aspirin Afib - Tele monitor showing NSR despite pt reporting palpitations - Currently on cardizem 30 mg po TID and inderal 5 mg po tid GERD - Continue carafate and protonix and simtheicone DM -Continue home metformin - Accuchecks prn - Hypoglycemic protocol - Continue neurontin for neuropathy COPD - CXR was normal - Continue combivent and ventolin and singulair - Started on promethazine prn - Pulm, Dr. Robertson is consulted. Pt started on zithromax. Pt has been afebrile and has had normal WBC count. Will consider discontinuing Hypertension -Cardizem - Inderal 5mg PO TID History of Anxiety -Klonopin 1mg PO TID Prophylactic Measure -Lovenox -Protonix -SCDs All orders and management per Dr. Zuñiga <Bladimir Zuñiga - Last Filed: 02/01/18 23:06> Objective - Vital Signs/Intake and Output Vital Signs (last 24 hours): Temp Pulse Resp BP Pulse Ox 97.9 F 65 20 112/68 96 02/01/18 15:52 02/01/18 15:52 02/01/18 15:52 02/01/18 15:52 02/01/18 15:52 Intake and Output: 02/01/18 02/02/18 18:59 06:59 Intake Total 400 Balance 400 - Medications Medications: Current Medications Albuterol (Ventolin Hfa 90 Mcg/Actuation (8 G)) 2 puff IH RQ6 PRN PRN Reason: Cough Albuterol/Ipratropium (Combivent Respimat) 1 puff IH Q6H PRN PRN Reason: Shortness of Breath Aspirin (Aspirin) 325 mg PO DAILY [facility] Last Admin: 02/01/18 09:17 Dose: 325 mg Clonazepam (Klonopin) 1 mg PO TID [facility] Last Admin: 02/01/18 19:35 Dose: 1 mg Dextrose (Dextrose 50% Inj) 0 ml IV STAT PRN; Protocol PRN Reason: Hypoglycemia Protocol Dextrose (Glutose 15) 0 gm PO ONCE PRN; Protocol PRN Reason: Hypoglycemia Protocol Diltiazem HCl (Cardizem) 30 mg PO TID [facility] Last Admin: 02/01/18 19:35 Dose: 30 mg Enoxaparin Sodium (Lovenox) 40 mg SC DAILY [facility] Last Admin: 02/01/18 09:19 Dose: 40 mg Gabapentin (Neurontin) 100 mg PO TID [facility] Last Admin: 02/01/18 19:36 Dose: 100 mg Glucagon (Glucagen Diagnostic Kit) 0 mg IM STAT PRN; Protocol PRN Reason: Hypoglycemia Protocol Azithromycin 500 mg/ Sodium (Chloride) 250 mls @ 250 mls/hr IVPB DAILY [facility] PRN Reason: Protocol Dextrose (Dextrose 5% In Water 1000 Ml) 1,000 mls @ 0 mls/hr IV .Q0M PRN; Protocol; Per Protocol PRN Reason: Hypoglycemia Protocol Potassium Chloride (Potassium Chloride 20 Meq/100 Ml) 20 meq in 100 mls @ 50 mls/hr IVPB ONCE ONE Stop: 02/02/18 00:07 Last Admin: 02/01/18 22:55 Dose: 50 mls/hr Metformin HCl (Glucophage) 500 mg PO BIDCC PRN PRN Reason: high blood sugar Montelukast Sodium (Singulair) 10 mg PO HS [facility] Last Admin: 02/01/18 22:13 Dose: 10 mg Pantoprazole Sodium (Protonix Ec Tab) 40 mg PO DAILY [facility] Last Admin: 02/01/18 09:18 Dose: 40 mg Potassium Chloride (Klor-Con 10) 10 meq PO DAILY [facility] Last Admin: 02/01/18 09:18 Dose: 10 meq Promethazine HCl (Phenergan Syrup) 6.25 mg PO Q6 [facility] Last Admin: 02/01/18 19:36 Dose: 6.25 mg Propranolol HCl (Inderal) 5 mg PO TID [facility] Last Admin: 02/01/18 19:35 Dose: 5 mg Propranolol HCl (Inderal) 10 mg PO HS [facility] Last Admin: 02/01/18 22:54 Dose: Not Given Saccharomyces Boulardii (Florastor) 250 mg PO DAILY [facility] Last Admin: 02/01/18 09:18 Dose: 250 mg Fluticasone/Salmeterol (Advair Diskus 250/50) 1 puff IH RQ12 [facility] Simethicone (Mylicon Chew Tab) 80 mg PO TID PRN PRN Reason: GI distress Last Admin: 02/01/18 19:36 Dose: 80 mg Sucralfate (Carafate Oral Susp) 1 gm PO ACTID [facility] Last Admin: 02/01/18 17:05 Dose: 1 gm Temazepam (Restoril) 15 mg PO [facility] Last Admin: 02/01/18 22:06 Dose: Not Given Tramadol HCl (Ultram) 50 mg PO Q6 PRN PRN Reason: Pain, Mild (1-3) Last Admin: 02/01/18 22:13 Dose: 50 mg - Labs Labs: 01/30/18 17:50 01/30/18 17:50 PT 13.2 SECONDS (9.7-12.2) H 01/30/18 17:50 INR 1.2 01/30/18 17:50 APTT 31 SECONDS (21-34) 01/30/18 17:50 Attending/Attestation - Attestation I have personally seen and examined this patient.: Yes I have fully participated in the care of the patient.: Yes I have reviewed all pertinent clinical information, including history, physical exam and plan: Yes Notes (Text): 02/01/18 23:06 case seen and d.w staff and resident, concurred with finding and management..
[2018-02-01] MEDS ORDERED: Glucagon Recombinant 1 mg Inj IM PRN (16:04)
[2018-02-01] MEDS ORDERED: Dextrose 50% SYRINGE Inj (50 ml) IV PRN (16:04)
--- NOTE | 2018-02-01 19:08 | CP.PCM.PN ---
Subjective - Date & Time of Evaluation Date of Evaluation: 02/01/18 Time of Evaluation: 10:40 - Subjective Subjective: clinically same Objective - Vital Signs/Intake and Output Vital Signs (last 24 hours): Temp Pulse Resp BP Pulse Ox 97.9 F 65 20 112/68 96 02/01/18 15:52 02/01/18 15:52 02/01/18 15:52 02/01/18 15:52 02/01/18 15:52 Intake and Output: 02/01/18 02/02/18 18:59 06:59 Intake Total 400 Balance 400 - Medications Medications: Current Medications Albuterol (Ventolin Hfa 90 Mcg/Actuation (8 G)) 2 puff IH RQ6 PRN PRN Reason: Cough Albuterol/Ipratropium (Combivent Respimat) 1 puff IH Q6H PRN PRN Reason: Shortness of Breath Aspirin (Aspirin) 325 mg PO DAILY [facility] Last Admin: 02/01/18 09:17 Dose: 325 mg Clonazepam (Klonopin) 1 mg PO TID [facility] Last Admin: 02/01/18 13:41 Dose: 1 mg Dextrose (Dextrose 50% Inj) 0 ml IV STAT PRN; Protocol PRN Reason: Hypoglycemia Protocol Dextrose (Glutose 15) 0 gm PO ONCE PRN; Protocol PRN Reason: Hypoglycemia Protocol Diltiazem HCl (Cardizem) 30 mg PO TID [facility] Last Admin: 02/01/18 13:42 Dose: 30 mg Enoxaparin Sodium (Lovenox) 40 mg SC DAILY [facility] Last Admin: 02/01/18 09:19 Dose: 40 mg Gabapentin (Neurontin) 100 mg PO TID [facility] Last Admin: 02/01/18 13:42 Dose: 100 mg Glucagon (Glucagen Diagnostic Kit) 0 mg IM STAT PRN; Protocol PRN Reason: Hypoglycemia Protocol Azithromycin 500 mg/ Sodium (Chloride) 250 mls @ 250 mls/hr IVPB DAILY [facility] PRN Reason: Protocol Dextrose (Dextrose 5% In Water 1000 Ml) 1,000 mls @ 0 mls/hr IV .Q0M PRN; Protocol; Per Protocol PRN Reason: Hypoglycemia Protocol Metformin HCl (Glucophage) 500 mg PO BIDCC PRN PRN Reason: high blood sugar Montelukast Sodium (Singulair) 10 mg PO [facility] Last Admin: 01/31/18 21:53 Dose: 10 mg Pantoprazole Sodium (Protonix Ec Tab) 40 mg PO DAILY [facility] Last Admin: 02/01/18 09:18 Dose: 40 mg Potassium Chloride (Klor-Con 10) 10 meq PO DAILY [facility] Last Admin: 02/01/18 09:18 Dose: 10 meq Promethazine HCl (Phenergan Syrup) 6.25 mg PO Q6 [facility] Propranolol HCl (Inderal) 5 mg PO TID [facility] Last Admin: 02/01/18 13:42 Dose: 5 mg Propranolol HCl (Inderal) 10 mg PO HS [facility] Last Admin: 01/31/18 21:57 Dose: Not Given Saccharomyces Boulardii (Florastor) 250 mg PO DAILY [facility] Last Admin: 02/01/18 09:18 Dose: 250 mg Fluticasone/Salmeterol (Advair Diskus 250/50) 1 puff IH RQ12 [facility] Simethicone (Mylicon Chew Tab) 80 mg PO TID PRN PRN Reason: GI distress Last Admin: 01/31/18 13:38 Dose: 80 mg Sucralfate (Carafate Oral Susp) 1 gm PO ACTID [facility] Last Admin: 02/01/18 17:05 Dose: 1 gm Temazepam (Restoril) 15 mg PO HS [facility] Last Admin: 01/31/18 21:53 Dose: 15 mg Tramadol HCl (Ultram) 50 mg PO Q6 PRN PRN Reason: Pain, Mild (1-3) Last Admin: 02/01/18 12:45 Dose: 50 mg - Labs Labs: 01/30/18 17:50 01/30/18 17:50 PT 13.2 SECONDS (9.7-12.2) H 01/30/18 17:50 INR 1.2 01/30/18 17:50 APTT 31 SECONDS (21-34) 01/30/18 17:50 - Constitutional Appears: Well - Head Exam Head Exam: ATRAUMATIC, NORMAL INSPECTION, NORMOCEPHALIC - Eye Exam Eye Exam: EOMI, Normal appearance, PERRL Pupil Exam: NORMAL ACCOMODATION, PERRL - ENT Exam ENT Exam: Mucous Membranes Moist, Normal Exam - Neck Exam Neck Exam: Full ROM, Normal Inspection. absent: Lymphadenopathy - Respiratory Exam Respiratory Exam: Decreased Breath Sounds - Cardiovascular Exam Cardiovascular Exam: REGULAR RHYTHM, +S1, +S2 - GI/Abdominal Exam GI & Abdominal Exam: Soft, Diminished Bowel Sounds - Rectal Exam Rectal Exam: Deferred Assessment and Plan - Assessment and Plan (Free Text) Plan: Chest pain - EKG and troponins negative x 3 - Automotive Service Consultant, Dr. Lynn consulted and saw pt. Recommends pt keep appointment with Dr. Posadas on for outpt stress test - Continue aspirin Afib - Tele monitor showing NSR despite pt reporting palpitations - Currently on cardizem 30 mg po TID and inderal 5 mg po tid GERD - Continue carafate and protonix and simtheicone DM -Continue home metformin - Accuchecks prn - Hypoglycemic protocol - Continue neurontin for neuropathy COPD - CXR was normal - Continue combivent and ventolin and singulair - Started on promethazine prn - Pulm, Dr. Robertson is consulted. Pt started on zithromax. Pt has been afebrile and has had normal WBC count. Will consider discontinuing Hypertension -Cardizem - Inderal 5mg PO TID History of Anxiety -Klonopin 1mg PO TID Prophylactic Measure -Lovenox -Protonix pt was seen by annabel head who told pt that he will call to come see her as pt wants to see dr. posadas before she leaves extesnive discussion with pateint
[2018-02-01] MEDS: Simethicone 80 mg Chewtab PO PRN (19:36)
[2018-02-01] MEDS: Promethazine 6.25 MG/5 ML CUP PO SCH (19:36)
[2018-02-01] MEDS ORDERED: Potassium Chloride 20 mEq ER Tab PO ONE (23:56)
[2018-02-02] MEDS: Promethazine 6.25 MG/5 ML CUP PO SCH ×4 (00:15→18:04)
[2018-02-02] MEDS: Sucralfate 1 gm/10 ml Oral Susp UD PO SCH ×3 (08:08→17:58)
[2018-02-02 08:49] LABS: BASO % 0.3 % (0.0-2.0); EOS # 0.3 K/uL (0.0-0.7); EOS % 6.4 % (0.0-4.0); HEMOGLOBIN 11.8 g/dL (11.0-16.0); MEAN CELL VOLUME 79.5 fL (81.0-99.0); MEAN CORPUSCULAR HEMOGLOBIN 26.6 pg (27.0-31.0); MEAN CORPUSCULAR HGB CONC 33.4 g/dL (33.0-37.0); MEAN PLATELET VOLUME 8.9 fL (7.2-11.7); MONO # 0.4 K/uL (0.0-0.8); NEUT # 2.4 K/uL (1.8-7.0); NEUT % 47.3 % (50.0-75.0); RBC 4.43 Mil/uL (3.80-5.20); RED CELL DISTRIBUTION WIDTH 16.2 % (11.5-14.5); WHITE BLOOD COUNT 5.2 K/uL (4.8-10.8)
[2018-02-02 09:14] LABS: ALB/GLOB RATIO 0.9 (1.0-2.1); ALBUMIN 3.5 g/dL (3.5-5.0); ALT/SGPT 21 U/L (9-52); AST/SGOT 22 U/L (14-36); BLOOD UREA NITROGEN 16 mg/dL (7-17); CALCIUM 8.9 mg/dl (8.6-10.4); GFR AFRICAN-AMERICAN > 60; GFR NON-AFRICAN AMERICAN > 60
[2018-02-02] MEDS: Potassium Chloride 10 mEq ER Tab PO SCH (09:30)
[2018-02-02] MEDS: Enoxaparin 40 mg Syringe SC SCH (09:31)
[2018-02-02] MEDS: Pantoprazole 40 mg EC Tab PO SCH (09:31)
[2018-02-02] MEDS: Saccharomyces Boulardi 250 mg Cap PO SCH (09:31)
[2018-02-02] MEDS: Propranolol 5 mg Tab PO SCH ×3 (09:32→17:59)
[2018-02-02] MEDS: Azithromycin 500 MG in Sodium Chloride 0.9% 250 ML IVPB SCH (09:33)
--- NOTE | 2018-02-02 12:49 | CP.PCM.PN ---
<Vimal Driscoll - Last Filed: 02/02/18 12:52> Subjective - Date & Time of Evaluation Date of Evaluation: 02/02/18 Time of Evaluation: 12:45 - Subjective Subjective: Progress note. Attending: Dr. Zuñiga Pt seen and examined at bedside. NO acute distress. No events overnight. pt denies any complaints. No fevers, chills, vomiting, diarrhea. Objective - Vital Signs/Intake and Output Vital Signs (last 24 hours): Temp Pulse Resp BP Pulse Ox 98.0 F 71 20 135/88 98 02/02/18 08:24 02/02/18 08:24 02/02/18 08:24 02/02/18 08:24 02/02/18 08:24 Intake and Output: 02/02/18 02/02/18 06:59 18:59 Intake Total 240 Balance 240 - Medications Medications: Current Medications Albuterol (Ventolin Hfa 90 Mcg/Actuation (8 G)) 2 puff IH RQ6 PRN PRN Reason: Cough Albuterol/Ipratropium (Combivent Respimat) 1 puff IH Q6H PRN PRN Reason: Shortness of Breath Aspirin (Aspirin) 325 mg PO DAILY [facility] Last Admin: 02/02/18 09:30 Dose: 325 mg Clonazepam (Klonopin) 1 mg PO TID [facility] Last Admin: 02/02/18 09:31 Dose: 1 mg Dextrose (Dextrose 50% Inj) 0 ml IV STAT PRN; Protocol PRN Reason: Hypoglycemia Protocol Dextrose (Glutose 15) 0 gm PO ONCE PRN; Protocol PRN Reason: Hypoglycemia Protocol Diltiazem HCl (Cardizem) 30 mg PO TID [facility] Last Admin: 02/02/18 09:31 Dose: 30 mg Enoxaparin Sodium (Lovenox) 40 mg SC DAILY [facility] Last Admin: 02/02/18 09:31 Dose: 40 mg Gabapentin (Neurontin) 100 mg PO TID [facility] Last Admin: 02/02/18 09:31 Dose: 100 mg Glucagon (Glucagen Diagnostic Kit) 0 mg IM STAT PRN; Protocol PRN Reason: Hypoglycemia Protocol Azithromycin 500 mg/ Sodium (Chloride) 250 mls @ 250 mls/hr IVPB DAILY [facility] PRN Reason: Protocol Last Admin: 02/02/18 09:33 Dose: 250 mls/hr Dextrose (Dextrose 5% In Water 1000 Ml) 1,000 mls @ 0 mls/hr IV .Q0M PRN; Protocol; Per Protocol PRN Reason: Hypoglycemia Protocol Metformin HCl (Glucophage) 500 mg PO BIDCC PRN PRN Reason: high blood sugar Montelukast Sodium (Singulair) 10 mg PO [facility] Last Admin: 02/01/18 22:13 Dose: 10 mg Pantoprazole Sodium (Protonix Ec Tab) 40 mg PO DAILY [facility] Last Admin: 02/02/18 09:31 Dose: 40 mg Potassium Chloride (Klor-Con 10) 10 meq PO DAILY [facility] Last Admin: 02/02/18 09:30 Dose: 10 meq Promethazine HCl (Phenergan Syrup) 6.25 mg PO Q6 [facility] Last Admin: 02/02/18 06:28 Dose: 6.25 mg Propranolol HCl (Inderal) 5 mg PO TID [facility] Last Admin: 02/02/18 09:32 Dose: 5 mg Propranolol HCl (Inderal) 10 mg PO [facility] Last Admin: 02/01/18 22:54 Dose: Not Given Saccharomyces Boulardii (Florastor) 250 mg PO DAILY [facility] Last Admin: 02/02/18 09:31 Dose: 250 mg Fluticasone/Salmeterol (Advair Diskus 250/50) 1 puff IH RQ12 [facility] Simethicone (Mylicon Chew Tab) 80 mg PO TID PRN PRN Reason: GI distress Last Admin: 02/01/18 19:36 Dose: 80 mg Sucralfate (Carafate Oral Susp) 1 gm PO ACTID [facility] Last Admin: 02/02/18 08:08 Dose: 1 gm Temazepam (Restoril) 15 mg PO [facility] Last Admin: 02/01/18 22:06 Dose: Not Given Tramadol HCl (Ultram) 50 mg PO Q6 PRN PRN Reason: Pain, Mild (1-3) Last Admin: 02/01/18 22:13 Dose: 50 mg - Labs Labs: 02/02/18 08:27 02/02/18 08:27 PT 13.2 SECONDS (9.7-12.2) H 01/30/18 17:50 INR 1.2 01/30/18 17:50 APTT 31 SECONDS (21-34) 01/30/18 17:50 - Constitutional Appears: Non-toxic, No Acute Distress - Head Exam Head Exam: ATRAUMATIC, NORMAL INSPECTION, NORMOCEPHALIC - Eye Exam Eye Exam: EOMI - ENT Exam ENT Exam: Mucous Membranes Moist - Neck Exam Neck Exam: Full ROM, Normal Inspection - Respiratory Exam Respiratory Exam: Chest Wall Tenderness, NORMAL BREATHING PATTERN. absent: Respiratory Distress - Cardiovascular Exam Cardiovascular Exam: +S1, +S2 - GI/Abdominal Exam GI & Abdominal Exam: Soft, Normal Bowel Sounds. absent: Tenderness - Extremities Exam Extremities Exam: Full ROM, Normal Inspection - Back Exam Back Exam: NORMAL INSPECTION - Neurological Exam Neurological Exam: Alert, Awake, Oriented x3 - Psychiatric Exam Psychiatric exam: Normal Affect, Normal Mood - Skin Skin Exam: Dry, Intact, Normal Color, Warm Assessment and Plan - Assessment and Plan (Free Text) Assessment: This is a 57 yo female with 1. Non anginal chest pain -Dr. Lynn saw -says pt is cleared for discharge -may need another outpatient stress test -can follow with Dr. Posadas -asa 81 mg po daily 2. hx of a fib -continue cardizem tid 2. SOB/asthma -duonebs -combivent 3. hx of anxiety -continue klonopin for anxiety 4. GI/DVT ppx -scds -lovenox -protonix daily discussed with Dr. Zuñiga <Bladimir Zuñiga - Last Filed: 02/04/18 13:38> Objective - Vital Signs/Intake and Output Vital Signs (last 24 hours): Temp Pulse Resp BP Pulse Ox 97.9 F 66 20 109/74 96 02/03/18 07:00 02/03/18 07:56 02/03/18 07:00 02/03/18 07:00 02/03/18 07:00 - Labs Labs: 02/03/18 07:00 02/03/18 07:00 PT 13.2 SECONDS (9.7-12.2) H 01/30/18 17:50 INR 1.2 01/30/18 17:50 APTT 31 SECONDS (21-34) 01/30/18 17:50 Attending/Attestation - Attestation I have personally seen and examined this patient.: Yes I have fully participated in the care of the patient.: Yes I have reviewed all pertinent clinical information, including history, physical exam and plan: Yes Notes (Text): case seen and d.w staff and resident, concurred with finding and management..
--- NOTE | 2018-02-02 15:33 | CP.PCM.PN ---
Subjective - Date & Time of Evaluation Date of Evaluation: 02/02/18 Time of Evaluation: 10:20 Objective - Vital Signs/Intake and Output Vital Signs (last 24 hours): Temp Pulse Resp BP Pulse Ox 98.0 F 71 20 135/88 98 02/02/18 08:24 02/02/18 08:24 02/02/18 08:24 02/02/18 08:24 02/02/18 08:24 Intake and Output: 02/02/18 02/02/18 06:59 18:59 Intake Total 240 Balance 240 - Medications Medications: Current Medications Albuterol (Ventolin Hfa 90 Mcg/Actuation (8 G)) 2 puff IH RQ6 PRN PRN Reason: Cough Albuterol/Ipratropium (Combivent Respimat) 1 puff IH Q6H PRN PRN Reason: Shortness of Breath Aspirin (Aspirin) 325 mg PO DAILY [facility] Last Admin: 02/02/18 09:30 Dose: 325 mg Clonazepam (Klonopin) 1 mg PO TID [facility] Last Admin: 02/02/18 14:05 Dose: 1 mg Dextrose (Dextrose 50% Inj) 0 ml IV STAT PRN; Protocol PRN Reason: Hypoglycemia Protocol Dextrose (Glutose 15) 0 gm PO ONCE PRN; Protocol PRN Reason: Hypoglycemia Protocol Diltiazem HCl (Cardizem) 30 mg PO TID [facility] Last Admin: 02/02/18 14:05 Dose: 30 mg Enoxaparin Sodium (Lovenox) 40 mg SC DAILY [facility] Last Admin: 02/02/18 09:31 Dose: 40 mg Gabapentin (Neurontin) 100 mg PO TID [facility] Last Admin: 02/02/18 14:04 Dose: 100 mg Glucagon (Glucagen Diagnostic Kit) 0 mg IM STAT PRN; Protocol PRN Reason: Hypoglycemia Protocol Azithromycin 500 mg/ Sodium (Chloride) 250 mls @ 250 mls/hr IVPB DAILY [facility] PRN Reason: Protocol Last Admin: 02/02/18 09:33 Dose: 250 mls/hr Dextrose (Dextrose 5% In Water 1000 Ml) 1,000 mls @ 0 mls/hr IV .Q0M PRN; Protocol; Per Protocol PRN Reason: Hypoglycemia Protocol Metformin HCl (Glucophage) 500 mg PO BIDCC PRN PRN Reason: high blood sugar Montelukast Sodium (Singulair) 10 mg PO [facility] Last Admin: 02/01/18 22:13 Dose: 10 mg Pantoprazole Sodium (Protonix Ec Tab) 40 mg PO DAILY [facility] Last Admin: 02/02/18 09:31 Dose: 40 mg Potassium Chloride (Klor-Con 10) 10 meq PO DAILY [facility] Last Admin: 02/02/18 09:30 Dose: 10 meq Promethazine HCl (Phenergan Syrup) 6.25 mg PO Q6 [facility] Last Admin: 02/02/18 13:28 Dose: 6.25 mg Propranolol HCl (Inderal) 5 mg PO TID [facility] Last Admin: 02/02/18 14:05 Dose: 5 mg Propranolol HCl (Inderal) 10 mg PO HS [facility] Last Admin: 02/01/18 22:54 Dose: Not Given Saccharomyces Boulardii (Florastor) 250 mg PO DAILY [facility] Last Admin: 02/02/18 09:31 Dose: 250 mg Fluticasone/Salmeterol (Advair Diskus 250/50) 1 puff IH RQ12 [facility] Simethicone (Mylicon Chew Tab) 80 mg PO TID PRN PRN Reason: GI distress Last Admin: 02/01/18 19:36 Dose: 80 mg Sucralfate (Carafate Oral Susp) 1 gm PO ACTID [facility] Last Admin: 02/02/18 13:28 Dose: 1 gm Temazepam (Restoril) 15 mg PO [facility] Last Admin: 02/01/18 22:06 Dose: Not Given Tramadol HCl (Ultram) 50 mg PO Q6 PRN PRN Reason: Pain, Mild (1-3) Last Admin: 02/01/18 22:13 Dose: 50 mg - Labs Labs: 02/02/18 08:27 02/02/18 08:27 PT 13.2 SECONDS (9.7-12.2) H 01/30/18 17:50 INR 1.2 01/30/18 17:50 APTT 31 SECONDS (21-34) 01/30/18 17:50 Assessment and Plan (1) Anxiety Status: Acute (2) COPD (chronic obstructive pulmonary disease) Status: Acute (3) Diabetes Status: Acute (4) Palpitations Status: Acute (5) S/P ablation of accessory bypass tract Status: Acute (6) Acute bronchitis Status: Acute
--- NOTE | 2018-02-02 17:19 | CP.PCM.PN ---
Subjective - Date & Time of Evaluation Date of Evaluation: 02/02/18 Time of Evaluation: 11:30 - Subjective Subjective: afebrile denies chest pain or sob no acute distress discharge planning Objective - Vital Signs/Intake and Output Vital Signs (last 24 hours): Temp Pulse Resp BP Pulse Ox 98.2 F 70 20 110/72 99 02/02/18 15:10 02/02/18 15:10 02/02/18 15:10 02/02/18 15:10 02/02/18 15:10 Intake and Output: 02/02/18 02/02/18 06:59 18:59 Intake Total 240 Balance 240 - Medications Medications: Current Medications Albuterol (Ventolin Hfa 90 Mcg/Actuation (8 G)) 2 puff IH RQ6 PRN PRN Reason: Cough Albuterol/Ipratropium (Combivent Respimat) 1 puff IH Q6H PRN PRN Reason: Shortness of Breath Aspirin (Aspirin) 325 mg PO DAILY [facility] Last Admin: 02/02/18 09:30 Dose: 325 mg Clonazepam (Klonopin) 1 mg PO TID [facility] Last Admin: 02/02/18 14:05 Dose: 1 mg Dextrose (Dextrose 50% Inj) 0 ml IV STAT PRN; Protocol PRN Reason: Hypoglycemia Protocol Dextrose (Glutose 15) 0 gm PO ONCE PRN; Protocol PRN Reason: Hypoglycemia Protocol Diltiazem HCl (Cardizem) 30 mg PO TID [facility] Last Admin: 02/02/18 14:05 Dose: 30 mg Enoxaparin Sodium (Lovenox) 40 mg SC DAILY [facility] Last Admin: 02/02/18 09:31 Dose: 40 mg Gabapentin (Neurontin) 100 mg PO TID [facility] Last Admin: 02/02/18 14:04 Dose: 100 mg Glucagon (Glucagen Diagnostic Kit) 0 mg IM STAT PRN; Protocol PRN Reason: Hypoglycemia Protocol Azithromycin 500 mg/ Sodium (Chloride) 250 mls @ 250 mls/hr IVPB DAILY [facility] PRN Reason: Protocol Last Admin: 02/02/18 09:33 Dose: 250 mls/hr Dextrose (Dextrose 5% In Water 1000 Ml) 1,000 mls @ 0 mls/hr IV .Q0M PRN; Protocol; Per Protocol PRN Reason: Hypoglycemia Protocol Metformin HCl (Glucophage) 500 mg PO BIDCC PRN PRN Reason: high blood sugar Montelukast Sodium (Singulair) 10 mg PO HS [facility] Last Admin: 02/01/18 22:13 Dose: 10 mg Pantoprazole Sodium (Protonix Ec Tab) 40 mg PO DAILY [facility] Last Admin: 02/02/18 09:31 Dose: 40 mg Potassium Chloride (Klor-Con 10) 10 meq PO DAILY [facility] Last Admin: 02/02/18 09:30 Dose: 10 meq Promethazine HCl (Phenergan Syrup) 6.25 mg PO Q6 [facility] Last Admin: 02/02/18 13:28 Dose: 6.25 mg Propranolol HCl (Inderal) 5 mg PO TID [facility] Last Admin: 02/02/18 14:05 Dose: 5 mg Propranolol HCl (Inderal) 10 mg PO HS [facility] Last Admin: 02/01/18 22:54 Dose: Not Given Saccharomyces Boulardii (Florastor) 250 mg PO DAILY [facility] Last Admin: 02/02/18 09:31 Dose: 250 mg Fluticasone/Salmeterol (Advair Diskus 250/50) 1 puff IH RQ12 [facility] Simethicone (Mylicon Chew Tab) 80 mg PO TID PRN PRN Reason: GI distress Last Admin: 02/01/18 19:36 Dose: 80 mg Sucralfate (Carafate Oral Susp) 1 gm PO ACTID [facility] Last Admin: 02/02/18 13:28 Dose: 1 gm Temazepam (Restoril) 15 mg PO HS [facility] Last Admin: 02/01/18 22:06 Dose: Not Given Tramadol HCl (Ultram) 50 mg PO Q6 PRN PRN Reason: Pain, Mild (1-3) Last Admin: 02/01/18 22:13 Dose: 50 mg - Labs Labs: 02/02/18 08:27 02/02/18 08:27 PT 13.2 SECONDS (9.7-12.2) H 01/30/18 17:50 INR 1.2 01/30/18 17:50 APTT 31 SECONDS (21-34) 01/30/18 17:50 - Constitutional Appears: Well - Head Exam Head Exam: ATRAUMATIC, NORMAL INSPECTION, NORMOCEPHALIC - Eye Exam Eye Exam: EOMI, Normal appearance, PERRL Pupil Exam: NORMAL ACCOMODATION, PERRL - ENT Exam ENT Exam: Mucous Membranes Moist, Normal Exam - Neck Exam Neck Exam: Full ROM, Normal Inspection. 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 (2) Abdominal pain Status: Acute (3) Acute bronchitis Status: Acute (4) Anxiety Status: Acute (5) Bradycardia Status: Acute (6) COPD (chronic obstructive pulmonary disease) Status: Acute (7) Chest discomfort Status: Acute (8) Chest pain Status: Acute (9) Chest pain at rest Status: Acute (10) Chr obstructive pulmonary disease w/ acute lower respiratory infxn Status: Acute (11) Diabetes Status: Acute (12) Dizziness Status: Acute (13) Dizziness Status: Acute (14) Near syncope Status: Acute (15) Palpitations Status: Acute (16) Palpitations Status: Acute (17) Panic disorder Status: Acute (18) S/P ablation of accessory bypass tract Status: Acute (19) SOB (shortness of breath) Status: Acute (20) Sinus tachycardia Status: Acute (21) Sinusitis chronic, sphenoidal Status: Acute (22) Syncope Status: Acute (23) Tachycardia Status: Acute (24) HTN (hypertension) Status: Chronic (25) Palpitations Status: Chronic - Assessment and Plan (Free Text) Plan: 1. Non anginal chest pain -Dr. Lynn saw -says pt is cleared for discharge -may need another outpatient stress test -can follow with Dr. Posadas -asa 81 mg po daily 2. hx of a fib -continue cardizem tid 2. SOB/asthma -duonebs -combivent 3. hx of anxiety -continue klonopin for anxiety 4. GI/DVT ppx -scds -lovenox -protonix daily case d/w consultants cleared for d/c ton d/c planning meds reviewed for outpt f/u as instructed
[2018-02-02] MEDS: Simethicone 80 mg Chewtab PO PRN (18:01)
[2018-02-03] MEDS: Promethazine 6.25 MG/5 ML CUP PO SCH ×3 (00:24→12:24)
[2018-02-03 00:54] VITALS: O2SAT 96
[2018-02-03 07:10] LABS: BASO # 0.1 K/uL (0.0-0.2); EOS # 0.4 K/uL (0.0-0.7); EOS % 7.2 % (0.0-4.0); HEMOGLOBIN 10.8 g/dL (11.0-16.0); LYMPH # 2.3 K/uL (1.0-4.3); LYMPH % 40.6 % (20.0-40.0); MEAN CELL VOLUME 79.5 fL (81.0-99.0); MEAN CORPUSCULAR HEMOGLOBIN 26.6 pg (27.0-31.0); MEAN CORPUSCULAR HGB CONC 33.5 g/dL (33.0-37.0); MEAN PLATELET VOLUME 8.5 fL (7.2-11.7); MONO # 0.5 K/uL (0.0-0.8); MONO % 8.1 % (0.0-10.0); NEUT # 2.5 K/uL (1.8-7.0); NEUT % 43.1 % (50.0-75.0); RBC 4.05 Mil/uL (3.80-5.20); RED CELL DISTRIBUTION WIDTH 16.4 % (11.5-14.5); WHITE BLOOD COUNT 5.7 K/uL (4.8-10.8)
[2018-02-03 07:44] LABS: ALB/GLOB RATIO 1.2 (1.0-2.1); ALBUMIN 3.7 g/dL (3.5-5.0); ALT/SGPT 25 U/L (9-52); AST/SGOT 24 U/L (14-36); BLOOD UREA NITROGEN 12 mg/dL (7-17); CALCIUM 9.1 mg/dl (8.6-10.4); GFR AFRICAN-AMERICAN > 60; GFR NON-AFRICAN AMERICAN > 60
[2018-02-03 08:07] VITALS: BP 109/74; TEMP 97.9
[2018-02-03] MEDS: Sucralfate 1 gm/10 ml Oral Susp UD PO SCH ×2 (08:40→12:24)
[2018-02-03 08:59] VITALS: PULSE 66
[2018-02-03] MEDS: Azithromycin 500 MG in Sodium Chloride 0.9% 250 ML IVPB SCH (09:21)
[2018-02-03] MEDS: Pantoprazole 40 mg EC Tab PO SCH (09:23)
[2018-02-03] MEDS: Potassium Chloride 10 mEq ER Tab PO SCH (09:23)
[2018-02-03] MEDS: Enoxaparin 40 mg Syringe SC SCH (09:23)
[2018-02-03] MEDS: Saccharomyces Boulardi 250 mg Cap PO SCH (09:23)
[2018-02-03] MEDS: Propranolol 5 mg Tab PO SCH ×2 (11:12→14:04)
--- NOTE | 2018-02-03 11:37 | CP.PCM.PN ---
<Klaudia Sanchez - Last Filed: 02/03/18 14:04> Subjective - Date & Time of Evaluation Date of Evaluation: 02/03/18 Time of Evaluation: 11:30 - Subjective Subjective: PGY2 progress note for Dr. Zuñiga Pt seen and examined at bedside. Resting comfortably. Denies having any CP, SOB, abd pain, N/V/D/C, F/C, coughing. Patient states she is ambulating ot bathroom without difficulty and denies having dyspnea or CP on exertion. Objective - Vital Signs/Intake and Output Vital Signs (last 24 hours): Temp Pulse Resp BP Pulse Ox 97.9 F 66 20 109/74 96 02/03/18 07:00 02/03/18 07:56 02/03/18 07:00 02/03/18 07:00 02/03/18 07:00 Intake and Output: 02/03/18 02/03/18 06:59 18:59 Intake Total 120 Balance 120 - Medications Medications: Current Medications Albuterol (Ventolin Hfa 90 Mcg/Actuation (8 G)) 2 puff IH RQ6 PRN PRN Reason: Cough Albuterol/Ipratropium (Combivent Respimat) 1 puff IH Q6H PRN PRN Reason: Shortness of Breath Aspirin (Aspirin) 325 mg PO DAILY [facility] Last Admin: 02/03/18 09:23 Dose: 325 mg Clonazepam (Klonopin) 1 mg PO TID [facility] Last Admin: 02/03/18 09:24 Dose: 1 mg Dextrose (Dextrose 50% Inj) 0 ml IV STAT PRN; Protocol PRN Reason: Hypoglycemia Protocol Dextrose (Glutose 15) 0 gm PO ONCE PRN; Protocol PRN Reason: Hypoglycemia Protocol Diltiazem HCl (Cardizem) 30 mg PO TID [facility] Last Admin: 02/03/18 09:24 Dose: 30 mg Enoxaparin Sodium (Lovenox) 40 mg SC DAILY [facility] Last Admin: 02/03/18 09:23 Dose: 40 mg Gabapentin (Neurontin) 100 mg PO TID [facility] Last Admin: 02/03/18 09:24 Dose: 100 mg Glucagon (Glucagen Diagnostic Kit) 0 mg IM STAT PRN; Protocol PRN Reason: Hypoglycemia Protocol Azithromycin 500 mg/ Sodium (Chloride) 250 mls @ 250 mls/hr IVPB DAILY [facility] PRN Reason: Protocol Last Admin: 02/03/18 09:21 Dose: 250 mls/hr Dextrose (Dextrose 5% In Water 1000 Ml) 1,000 mls @ 0 mls/hr IV .Q0M PRN; Protocol; Per Protocol PRN Reason: Hypoglycemia Protocol Metformin HCl (Glucophage) 500 mg PO BIDCC PRN PRN Reason: high blood sugar Montelukast Sodium (Singulair) 10 mg PO HS [facility] Last Admin: 02/02/18 21:39 Dose: 10 mg Pantoprazole Sodium (Protonix Ec Tab) 40 mg PO DAILY [facility] Last Admin: 02/03/18 09:23 Dose: 40 mg Potassium Chloride (Klor-Con 10) 10 meq PO DAILY [facility] Last Admin: 02/03/18 09:23 Dose: 10 meq Promethazine HCl (Phenergan Syrup) 6.25 mg PO Q6 [facility] Last Admin: 02/03/18 06:14 Dose: 6.25 mg Propranolol HCl (Inderal) 5 mg PO TID [facility] Last Admin: 02/03/18 11:12 Dose: 5 mg Propranolol HCl (Inderal) 10 mg PO [facility] Last Admin: 02/02/18 21:36 Dose: Not Given Saccharomyces Boulardii (Florastor) 250 mg PO DAILY [facility] Last Admin: 02/03/18 09:23 Dose: 250 mg Fluticasone/Salmeterol (Advair Diskus 250/50) 1 puff IH RQ12 [facility] Simethicone (Mylicon Chew Tab) 80 mg PO TID PRN PRN Reason: GI distress Last Admin: 02/02/18 18:01 Dose: 80 mg Sucralfate (Carafate Oral Susp) 1 gm PO ACTID [facility] Last Admin: 02/03/18 08:40 Dose: 1 gm Temazepam (Restoril) 15 mg PO [facility] Last Admin: 02/02/18 21:37 Dose: Not Given Tramadol HCl (Ultram) 50 mg PO Q6 PRN PRN Reason: Pain, Mild (1-3) Last Admin: 02/02/18 21:39 Dose: 50 mg - Labs Labs: 02/03/18 07:00 02/03/18 07:00 PT 13.2 SECONDS (9.7-12.2) H 01/30/18 17:50 INR 1.2 01/30/18 17:50 APTT 31 SECONDS (21-34) 01/30/18 17:50 - Constitutional Appears: Non-toxic, No Acute Distress - Head Exam Head Exam: ATRAUMATIC, NORMOCEPHALIC - ENT Exam ENT Exam: Mucous Membranes Moist - Respiratory Exam Respiratory Exam: Clear to Ausculation Bilateral. absent: Accessory Muscle Use , Rales, Rhonchi, Wheezes, Respiratory Distress - Cardiovascular Exam Cardiovascular Exam: REGULAR RHYTHM, +S1, +S2. absent: Gallop, Rubs, Murmur - GI/Abdominal Exam GI & Abdominal Exam: Soft, Normal Bowel Sounds. absent: Distended, Firm, Guarding, Rigid, Tenderness, Organomegaly - Extremities Exam Extremities Exam: absent: Pedal Edema, Tenderness - Neurological Exam Neurological Exam: Alert, Awake, Oriented x3 - Psychiatric Exam Psychiatric exam: Normal Affect, Normal Mood - Skin Skin Exam: Dry, Intact, Normal Color, Warm Assessment and Plan - Assessment and Plan (Free Text) Assessment: Chest pain - EKG and troponins negative x 3 - Centralized Traffic Control Operator, Dr. Lynn consulted and saw pt. Recommends pt keep appointment with Dr. Posadas on for outpt stress test - Continue aspirin - Echo done 07/2017 was normal Afib - Tele monitor showing NSR despite pt reporting palpitations - Currently on cardizem 30 mg po TID and inderal 5 mg po tid GERD - Continue carafate and protonix and simtheicone DM - Continue home metformin 500 mg po bid - Accuchecks prn - Hypoglycemic protocol - Continue neurontin for neuropathy COPD - CXR was normal - Continue combivent and ventolin and singulair - Started on promethazine prn - Pulm, Dr. Robertson is consulted. Pt started on zithromaxon 02/02. Pt has been afebrile and has had normal WBC count. Will consider discontinuing Hypertension - Cardizem - Inderal 5mg PO TID History of Anxiety -Klonopin 1mg PO TID Prophylactic Measure -Lovenox -Protonix -SCDs All orders and management per Dr. Zuñiga Patient stable for discharge per Dr. Zuñiga Patient is to follow up with her PMD upon discharge. Patient is to follow up with nut processing supervisor, Dr. Pena upon discharge. Patient has appointment schedule for 02/04/18 for outpatient stress test with Dr. Pena in his office. Patient is to continue home medications as prescribed. Patient is discharged on Zithromax 250 mg po daily for 3 additional days. Please return to ED if symptoms worsen. 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 (2) Abdominal pain Status: Acute (3) Acute bronchitis Status: Acute (4) Anxiety Status: Acute (5) Bradycardia Status: Acute (6) COPD (chronic obstructive pulmonary disease) Status: Acute (7) Chest discomfort Status: Acute (8) Chest pain Status: Acute (9) Chest pain at rest Status: Acute (10) Chr obstructive pulmonary disease w/ acute lower respiratory infxn Status: Acute (11) Diabetes Status: Acute (12) Dizziness Status: Acute (13) Dizziness Status: Acute (14) Near syncope Status: Acute (15) Palpitations Status: Acute (16) Palpitations Status: Acute (17) Panic disorder Status: Acute (18) S/P ablation of accessory bypass tract Status: Acute (19) SOB (shortness of breath) Status: Acute (20) Sinus tachycardia Status: Acute (21) Sinusitis chronic, sphenoidal Status: Acute (22) Syncope Status: Acute (23) Tachycardia Status: Acute (24) HTN (hypertension) Status: Chronic (25) Palpitations Status: Chronic Attending/Attestation - Attestation I have personally seen and examined this patient.: Yes I have fully participated in the care of the patient.: Yes I have reviewed all pertinent clinical information, including history, physical exam and plan: Yes Notes (Text): case seen and d.w staff and resident, concurred with finding and management..
--- NOTE | 2018-02-03 13:31 | CP.PCM.PN ---
Subjective - Date & Time of Evaluation Date of Evaluation: 02/03/18 Time of Evaluation: 13:31 Objective - Vital Signs/Intake and Output Vital Signs (last 24 hours): Temp Pulse Resp BP Pulse Ox 97.9 F 66 20 109/74 96 02/03/18 07:00 02/03/18 07:56 02/03/18 07:00 02/03/18 07:00 02/03/18 07:00 Intake and Output: 02/03/18 02/03/18 06:59 18:59 Intake Total 120 Balance 120 - Medications Medications: Current Medications Albuterol (Ventolin Hfa 90 Mcg/Actuation (8 G)) 2 puff IH RQ6 PRN PRN Reason: Cough Albuterol/Ipratropium (Combivent Respimat) 1 puff IH Q6H PRN PRN Reason: Shortness of Breath Aspirin (Aspirin) 325 mg PO DAILY [facility] Last Admin: 02/03/18 09:23 Dose: 325 mg Clonazepam (Klonopin) 1 mg PO TID [facility] Last Admin: 02/03/18 09:24 Dose: 1 mg Dextrose (Dextrose 50% Inj) 0 ml IV STAT PRN; Protocol PRN Reason: Hypoglycemia Protocol Dextrose (Glutose 15) 0 gm PO ONCE PRN; Protocol PRN Reason: Hypoglycemia Protocol Diltiazem HCl (Cardizem) 30 mg PO TID [facility] Last Admin: 02/03/18 09:24 Dose: 30 mg Enoxaparin Sodium (Lovenox) 40 mg SC DAILY [facility] Last Admin: 02/03/18 09:23 Dose: 40 mg Gabapentin (Neurontin) 100 mg PO TID [facility] Last Admin: 02/03/18 09:24 Dose: 100 mg Glucagon (Glucagen Diagnostic Kit) 0 mg IM STAT PRN; Protocol PRN Reason: Hypoglycemia Protocol Azithromycin 500 mg/ Sodium (Chloride) 250 mls @ 250 mls/hr IVPB DAILY [facility] PRN Reason: Protocol Last Admin: 02/03/18 09:21 Dose: 250 mls/hr Dextrose (Dextrose 5% In Water 1000 Ml) 1,000 mls @ 0 mls/hr IV .Q0M PRN; Protocol; Per Protocol PRN Reason: Hypoglycemia Protocol Metformin HCl (Glucophage) 500 mg PO BIDCC PRN PRN Reason: high blood sugar Montelukast Sodium (Singulair) 10 mg PO [facility] Last Admin: 02/02/18 21:39 Dose: 10 mg Pantoprazole Sodium (Protonix Ec Tab) 40 mg PO DAILY [facility] Last Admin: 02/03/18 09:23 Dose: 40 mg Potassium Chloride (Klor-Con 10) 10 meq PO DAILY [facility] Last Admin: 02/03/18 09:23 Dose: 10 meq Promethazine HCl (Phenergan Syrup) 6.25 mg PO Q6 [facility] Last Admin: 02/03/18 12:24 Dose: 6.25 mg Propranolol HCl (Inderal) 5 mg PO TID [facility] Last Admin: 02/03/18 11:12 Dose: 5 mg Propranolol HCl (Inderal) 10 mg PO HS [facility] Last Admin: 02/02/18 21:36 Dose: Not Given Saccharomyces Boulardii (Florastor) 250 mg PO DAILY [facility] Last Admin: 02/03/18 09:23 Dose: 250 mg Fluticasone/Salmeterol (Advair Diskus 250/50) 1 puff IH RQ12 [facility] Simethicone (Mylicon Chew Tab) 80 mg PO TID PRN PRN Reason: GI distress Last Admin: 02/02/18 18:01 Dose: 80 mg Sucralfate (Carafate Oral Susp) 1 gm PO ACTID [facility] Last Admin: 02/03/18 12:24 Dose: 1 gm Temazepam (Restoril) 15 mg PO [facility] Last Admin: 02/02/18 21:37 Dose: Not Given Tramadol HCl (Ultram) 50 mg PO Q6 PRN PRN Reason: Pain, Mild (1-3) Last Admin: 02/02/18 21:39 Dose: 50 mg - Labs Labs: 02/03/18 07:00 02/03/18 07:00 PT 13.2 SECONDS (9.7-12.2) H 01/30/18 17:50 INR 1.2 01/30/18 17:50 APTT 31 SECONDS (21-34) 01/30/18 17:50 Assessment and Plan (1) Anxiety Status: Acute (2) COPD (chronic obstructive pulmonary disease) Status: Acute (3) Diabetes Status: Acute (4) Palpitations Status: Acute (5) S/P ablation of accessory bypass tract Status: Acute (6) Acute bronchitis Status: Acute
--- NOTE | 2018-02-03 22:39 | CARD ---
APPROVED REPORT EKG Measurement Heart [id number] <Conclusion> Normal sinus rhythm Normal ECG
== END 2018-02-03 15:37 | disposition home or self-care (01) ==
LOC: C.ER 14:36 → C.9E 18:30 → C.6T 20:36
PROVIDERS: ADMIT Internal Medicine Nephrology; ATTEND Internal Medicine Nephrology
DX: R07.89 Other chest pain (principal); E78.00 Pure hypercholesterolemia, unspecified; F41.9 Anxiety disorder, unspecified; G47.33 Obstructive sleep apnea (adult) (pediatric); E11.42 Type 2 diabetes mellitus with diabetic polyneuropathy; F32.9 Major depressive disorder, single episode, unspecified; I11.0 Hypertensive heart disease with heart failure; I25.10 Atherosclerotic heart disease of native coronary artery without angina pectoris; I48.91 Unspecified atrial fibrillation; J20.9 Acute bronchitis, unspecified; K21.9 Gastro-esophageal reflux disease without esophagitis; I50.9 Heart failure, unspecified; J44.0 Chronic obstructive pulmonary disease with (acute) lower respiratory infection; Z86.73 Personal history of transient ischemic attack (TIA), and cerebral infarction without residual deficits; Z95.5 Presence of coronary angioplasty implant and graft
CPT/HCPCS: 36415; 71045; 80053; 82550; 82553; 82948; 83690; 83880; 84484; 85025; 85610; 85730; 93005; 96374; 99285; G0378; J0456; J1650; J3480; J7050

== ENCOUNTER 2018-03-01 13:38 | Inpatient (IN) | payer MEDICARE, MEDICAID ==
[2018-03-01 13:55] VITALS: BMI 40.5
--- NOTE | 2018-03-01 14:40 | RAD ---
Chest x-ray two views History: Chest pain. Comparison: 01/12/2018 Findings: Mild venous congestion. No pleural effusion. Top normal heart size. Tortuous aorta. Prominent degenerative changes in the shoulders. Degenerative changes in the spine. Impression: Mild venous congestion.
[2018-03-01 16:00] LABS: BASO # 0.1 K/uL (0.0-0.2); BASO % 0.8 % (0.0-2.0); EOS # 0.5 K/uL (0.0-0.7); EOS % 6.2 % (0.0-4.0); HEMOGLOBIN 11.9 g/dL (11.0-16.0); LYMPH # 2.4 K/uL (1.0-4.3); LYMPH % 32.9 % (20.0-40.0); MEAN CELL VOLUME 79.1 fL (81.0-99.0); MEAN CORPUSCULAR HEMOGLOBIN 26.3 pg (27.0-31.0); MEAN CORPUSCULAR HGB CONC 33.2 g/dL (33.0-37.0); MEAN PLATELET VOLUME 8.4 fL (7.2-11.7); MONO # 0.5 K/uL (0.0-0.8); NEUT # 3.9 K/uL (1.8-7.0); NEUT % 53.1 % (50.0-75.0); RBC 4.51 Mil/uL (3.80-5.20); RED CELL DISTRIBUTION WIDTH 16.2 % (11.5-14.5); WHITE BLOOD COUNT 7.4 K/uL (4.8-10.8)
--- NOTE | 2018-03-01 16:08 | C.PDOC ---
History Of Present Illness 57-year-old female, PMHx includes Hypertension, depression and anxiety, presents to the emergency department with complaints of chest pain, light headedness and palpitations. Patient has a Hx of multiple prior ED visits for same complaint. Patient was given Nitro prior to arrival. Denies fever, nausea/ vomiting, or any other associated symptoms. No other complaints at this time. Time Seen by Provider: 03/01/18 14:01 Chief Complaint (Nursing): Chest Pain History Per: Patient History/Exam Limitations: no limitations Current Symptoms Are (Timing): Still Present Severity: Moderate Past Medical History Reviewed: Historical Data, Nursing Documentation, Vital Signs Vital Signs: Last Vital Signs Temp 98.3 F 03/01/18 20:14 Pulse 50 L 03/01/18 20:14 Resp 18 03/01/18 20:14 BP 150/75 03/01/18 20:14 Pulse Ox 99 03/01/18 20:14 - Medical History PMH: Anxiety, Arthritis (hands), Atrial Fibrillation, CAD, Cardia Arrhythmia, CHF, COPD, Depression, Diabetes (hypoglycemia), Gastritis, Gall Bladder Disease , HTN, Hypercholesterolemia Surgical History: Cholecystectomy, Coronary Stent (x2) - Foodem Procedures EXCISION OF STOMACH, ENDO, DIAGN (11/25/17) Family History: States: No Known Family Hx - Social History Hx Tobacco Use: Yes (QUIT) Hx Alcohol Use: No Hx Substance Use: No - Immunization History Hx Tetanus Toxoid Vaccination: No Hx Influenza Vaccination: No Hx Pneumococcal Vaccination: No Review Of Systems Constitutional: Negative for: Fever, Chills Cardiovascular: Positive for: Chest Pain, Palpitations. Negative for: Edema, Light Headedness Respiratory: Negative for: Cough, Shortness of Breath Gastrointestinal: Negative for: Nausea, Vomiting Musculoskeletal: Negative for: Back Pain Neurological: Negative for: Weakness, Numbness, Headache, Dizziness Physical Exam - Physical Exam Appears: Non-toxic, No Acute Distress Skin: Normal Color, Warm, Dry, No Rash Head: Atraumatic, Normacephalic Eye(s): bilateral: Normal Inspection, PERRL, EOMI Nose: Normal Oral Mucosa: Moist Lips: Normal Appearing Neck: Normal ROM Cardiovascular: Rhythm Regular, No Murmur Respiratory: Normal Breath Sounds, No Accessory Muscle Use Gastrointestinal/Abdominal: Soft, No Tenderness Back: Normal Inspection Extremity: Normal ROM, No Deformity, No Swelling Neurological/Psych: Oriented x3, Normal Speech ED Course And Treatment - Laboratory Results Result Diagrams: 03/01/18 15:54 03/01/18 15:54 ECG: Interpreted By Me, Viewed By Me ECG Rhythm: Sinus Rhythm ECG Interpretation: No Acute Changes Rate From EC O2 Sat by Pulse Oximetry: 97 (RA) Pulse Ox Interpretation: Normal Medical Decision Making Medical Decision Making: cp ro acs labs imaging pending labs neg. dr kaiser bedside requests admisison. Disposition - Disposition Disposition: HOSPITALIZED Disposition Time: 03:00 Condition: STABLE - Clinical Impression Clinical Impression: Chest pain - Scribe Statement The provider has reviewed the documentation as recorded by the Scribe (Markus huerta) All medical record entries made by the Scribe were at my direction and personally dictated by me. I have reviewed the chart and agree that the record accurately reflects my personal performance of the history, physical exam, medical decision making, and the department course for this patient. I have also personally directed, reviewed, and agree with the discharge instructions and disposition. Decision To Admit - Pt Status Changed To: Hospital Disposition Of: Observation - . Bed Request Type: Telemetry Admitting Physician: Bladimir Kaiser Patient Diagnosis: Chest pain
[2018-03-01 16:20] LABS: INR 1.1
[2018-03-01 16:28] LABS: B-TYPE NATRIURETIC PEPTIDE 96.9 pg/mL (0-900)
[2018-03-01 16:33] LABS: ALB/GLOB RATIO 1.2 (1.0-2.1); ALBUMIN 4.3 g/dL (3.5-5.0); ALT/SGPT 25 U/L (9-52); AST/SGOT 25 U/L (14-36); BLOOD UREA NITROGEN 14 mg/dL (7-17); CALCIUM 9.6 mg/dl (8.6-10.4); GFR AFRICAN-AMERICAN > 60; GFR NON-AFRICAN AMERICAN > 60
[2018-03-01] MEDS ORDERED: Albuterol HFA 90 mcg/actuation (8 g) IH PRN (19:17)
--- NOTE | 2018-03-01 19:17 | CP.PCM.PN ---
Subjective - Date & Time of Evaluation Date of Evaluation: 03/01/18 Time of Evaluation: 10:00 - Subjective Subjective: history and physicial Spoke to the patient who got to be hospitalized again although patient was seen by Dr. Calzada and patient had a stress test done could not finish was terminated as patient cannot walk more than one half minutes and was not seen after then by Dr. Posadas and needs that is to be done patient has not done a nuclear stress test yet EKG with normal sinus rhythm TNI is negative A Objective - Vital Signs/Intake and Output Vital Signs (last 24 hours): Temp Pulse Resp BP Pulse Ox 98.3 F 64 18 148/82 97 03/01/18 13:48 03/01/18 13:48 03/01/18 13:48 03/01/18 13:48 03/01/18 16:10 - Labs Labs: 03/01/18 15:54 03/01/18 15:54 PT 12.0 SECONDS (9.7-12.2) 03/01/18 15:54 INR 1.1 03/01/18 15:54 APTT 33 SECONDS (21-34) 03/01/18 15:54 - Constitutional Appears: Well - Head Exam Head Exam: ATRAUMATIC, NORMAL INSPECTION, NORMOCEPHALIC - Eye Exam Eye Exam: EOMI, Normal appearance, PERRL Pupil Exam: NORMAL ACCOMODATION, PERRL - ENT Exam ENT Exam: Mucous Membranes Moist, Normal Exam - Neck Exam Neck Exam: Full ROM, Normal Inspection. 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 (3) Abdominal pain Status: Acute (4) Acute bronchitis Status: Acute (5) Anxiety Status: Acute (6) Bradycardia Status: Acute (7) COPD (chronic obstructive pulmonary disease) Status: Acute (8) Chest discomfort Status: Acute (9) Chest pain Status: Acute (10) Chest pain at rest Status: Acute (11) Chr obstructive pulmonary disease w/ acute lower respiratory infxn Status: Acute (12) Diabetes Status: Acute (13) Dizziness Status: Acute (14) Dizziness Status: Acute (15) Near syncope Status: Acute (16) Palpitations Status: Acute (17) Palpitations Status: Acute (18) Panic disorder Status: Acute (19) S/P ablation of accessory bypass tract Status: Acute (20) SOB (shortness of breath) Status: Acute (21) Sinus tachycardia Status: Acute (22) Sinusitis chronic, sphenoidal Status: Acute (23) Syncope Status: Acute (24) Tachycardia Status: Acute (25) HTN (hypertension) Status: Chronic (26) Palpitations Status: Chronic - Assessment and Plan (Free Text) Plan: ramy [place] medication reconciliation's Cardiology ANGELIKA [address] chest
--- NOTE | 2018-03-01 19:49 | CARD ---
APPROVED REPORT EKG Measurement Heart [id number] <Conclusion> Normal sinus rhythm Normal ECG
--- NOTE | 2018-03-01 20:44 | CP.PCM.CON ---
History of Present Illness - History of Present Illness History of Present Illness: 57 year old female admitted countless times for chest pain always rules out, stress tests have been negative. ECg always normal. Pt was concerned as her HR was slow at home, has chronic chest pain, at rest, somewhat positional, n o change from previous. pain is always partially relieved by tramadol. Echo has also been good. ECg now NSR, no changes, TNi negative. Pt is a diabetic, had an aflutter ablation 2 years ago without recurrence. Review of Systems - Review of Systems All systems: reviewed and no additional remarkable complaints except (as above.) Past Patient History - Infectious Disease Hx of Infectious Diseases: None - Tetanus Immunizations Tetanus Immunization: Unknown - Past Medical History & Family History Past Medical History?: Yes - Past Social History Smoking Status: Never Smoked - CARDIAC Hx Atrial Fibrillation: Yes Hx Cardia Arrhythmia: Yes Hx Congestive Heart Failure: Yes Hx Hypercholesterolemia: Yes Hx Hypertension: Yes - PULMONARY Hx Chronic Obstructive Pulmonary Disease (COPD): Yes - NEUROLOGICAL Hx Neurological Disorder: Yes HX Cerebrovascular Accident: Yes Hx Dizziness: Yes - HEENT Hx HEENT Problems: Yes Other/Comment: wears glasses for reading - RENAL Hx Chronic Kidney Disease: No - ENDOCRINE/METABOLIC Hx Endocrine Disorders: Yes Hx Diabetes Mellitus Type 1: Yes - HEMATOLOGICAL/ONCOLOGICAL Hx Blood Disorders: No - INTEGUMENTARY Hx Dermatological Problems: Yes Hx Eczema: Yes - MUSCULOSKELETAL/RHEUMATOLOGICAL Hx Arthritis: Yes (hands) - GASTROINTESTINAL Hx Gall Bladder Disease: Yes Hx Gastritis: Yes - GENITOURINARY/GYNECOLOGICAL Hx Genitourinary Disorders: No - PSYCHIATRIC Hx Anxiety: Yes Hx Depression: Yes Hx Substance Use: No - SURGICAL HISTORY Hx Cholecystectomy: Yes Hx Coronary Stent: Yes (x2) - ANESTHESIA Hx Anesthesia: Yes Hx Anesthesia Reactions: No Meds Allergies/Adverse Reactions: Allergies Allergy/AdvReac Type Severity Reaction Status Date / Time verapamil Allergy Verified 03/01/18 13:54 escitalopram [From Lexapro] AdvReac ANAPHYLAXIS Verified 03/01/18 13:54 Flu vaccine Allergy ANAPHYLAXIS Uncoded 01/12/18 20:05 pnuemonia vaccine Allergy ANAPHYLAXIS Uncoded 01/12/18 20:05 wool Allergy ANAPHYLAXIS Uncoded 01/12/18 20:05 - Medications Medications: Current Medications Albuterol (Ventolin Hfa 90 Mcg/Actuation (8 G)) 2 puff IH [id number] PRN PRN Reason: Cough Albuterol/Ipratropium (Combivent Respimat) 1 puff IH Q6H PRN PRN Reason: Shortness of Breath Clonazepam (Klonopin) 1 mg PO TID [facility] Colchicine (Colocrys) 0.6 mg PO BID [facility] Gabapentin (Neurontin) 100 mg PO TID [facility] Home Med (Budesonide/Formoterol Fumarate [Symbicort 160-4.5 Mcg Inhaler]) 1 aer IH Q12H [facility] Home Med (Potassium Chloride [Potassium Chloride]) 10 meq PO DAILY [facility] Losartan Potassium (Cozaar) 100 mg PO DAILY [facility] Metformin HCl (Glucophage) 500 mg PO PRN PRN PRN Reason: high blood sugar Montelukast Sodium (Singulair) 10 mg PO DAILY [facility] Saccharomyces Boulardii (Florastor) 250 mg PO DAILY [facility] Tramadol HCl (Ultram) 50 mg PO TID [facility] Physical Exam - Head Exam Head Exam: ATRAUMATIC - Eye Exam Eye Exam: EOMI - ENT Exam ENT Exam: Mucous Membranes Moist - Neck Exam Neck exam: Positive for: Normal Inspection - Respiratory Exam Respiratory Exam: Clear to Auscultation Bilateral - Cardiovascular Exam Cardiovascular Exam: REGULAR RHYTHM - Exam External exam: NORMAL EXTERNAL EXAM - Extremities Exam Extremities exam: Positive for: normal inspection - Back Exam Back exam: NORMAL INSPECTION - Neurological Exam Neurological exam: Alert, Oriented x3, Reflexes Normal - Psychiatric Exam Psychiatric exam: Normal Affect - Skin Skin Exam: Normal Color Results - Vital Signs Recent Vital Signs: Last Vital Signs Temp 98.3 F 03/01/18 20:14 Pulse 50 L 03/01/18 20:14 Resp 18 03/01/18 20:14 BP 150/75 03/01/18 20:14 Pulse Ox 99 03/01/18 20:14 - Labs Result Diagrams: 03/01/18 15:54 03/01/18 15:54 Labs: Laboratory Results - last 24 hr 03/01/18 03/01/18 03/01/18 13:52 15:54 15:54 WBC 7.4 RBC 4.51 Hgb 11.9 Hct 35.7 MCV 79.1 L MCH 26.3 L MCHC 33.2 RDW 16.2 H Plt Count 372 MPV 8.4 Neut % (Auto) 53.1 Lymph % (Auto) 32.9 [place] % (Auto) 7.0 Eos % (Auto) 6.2 H Baso % (Auto) 0.8 Neut # (Auto) 3.9 Lymph # (Auto) 2.4 [place] # (Auto) 0.5 Eos # (Auto) 0.5 Baso # (Auto) 0.1 PT 12.0 INR 1.1 APTT 33 Sodium Potassium Chloride Carbon Dioxide Anion Gap BUN Creatinine Est GFR ( Amer) Est GFR (Non-Af Amer) POC Glucose (mg/dL) 97 Random Glucose Calcium Total Bilirubin AST ALT Alkaline Phosphatase Troponin I NT-Pro-B Natriuret Pep Total Protein Albumin Globulin Albumin/Globulin Ratio 03/01/18 03/01/18 15:54 19:12 WBC RBC Hgb Hct MCV MCH MCHC RDW Plt Count MPV Neut % (Auto) Lymph % (Auto) [place] % (Auto) Eos % (Auto) Baso % (Auto) Neut # (Auto) Lymph # (Auto) [place] # (Auto) Eos # (Auto) Baso # (Auto) PT INR APTT Sodium 142 Potassium 4.2 Chloride 103 Carbon Dioxide 28 Anion Gap 15 BUN 14 Creatinine 0.9 Est GFR ( Amer) > 60 Est GFR (Non-Af Amer) > 60 POC Glucose (mg/dL) 123 H Random Glucose 83 Calcium 9.6 Total Bilirubin 0.4 AST 25 ALT 25 Alkaline Phosphatase 106 Troponin I < 0.0120 NT-Pro-B Natriuret Pep 96.9 Total Protein 8.0 Albumin 4.3 Globulin 3.6 Albumin/Globulin Ratio 1.2 Assessment & Plan - Assessment and Plan (Free Text) Assessment: 1. Non anginal chest pain. 2. pt has s evert, claims not to have taken propanolol or cardezem for several days. Will hold and get tsh 3. Chronic chest pain. Therapeutic trial of colchicine. Pt should go home with it for a few weeks and follow up. Tramadol for short term pain relief in hospital 4. Arb for HTN: pt had micardis as outpatient a preferred drug over out available short half life losartan (which I will prescribe while in patient).
[2018-03-02 00:52] LABS: CK-MB 0.24 ng/mL (0.0-3.38)
[2018-03-02 02:49] VITALS: RESP 20
--- NOTE | 2018-03-02 07:30 | CP.PCM.PN ---
<Ene Hector - Last Filed: 03/02/18 15:27> Subjective - Date & Time of Evaluation Date of Evaluation: 03/02/18 Time of Evaluation: 07:29 - Subjective Subjective: Internal Medicine Progress Note - Dr Raz Zuñiga Service Patient seen and examined at bedside. Per nursing no acute events overnight. Patient very tearful this morning about her medical condition. She wants to know why her HR keeps dropping. States that chest pain is improved. Requesting Protonix, Carafate, and Simethicone. Denies headaches, dizziness, palpitations, sob, abdominal pain, urinary symptoms, changes in bowel habits. Objective - Vital Signs/Intake and Output Vital Signs (last 24 hours): Temp Pulse Resp BP Pulse Ox 97.8 F 58 L 20 108/69 95 03/01/18 23:30 03/02/18 03:45 03/01/18 23:30 03/01/18 23:30 03/02/18 00:00 - Medications Medications: Current Medications Albuterol (Ventolin Hfa 90 Mcg/Actuation (8 G)) 2 puff IH RQ6 PRN PRN Reason: Cough Albuterol/Ipratropium (Combivent Respimat) 1 puff IH Q6H PRN PRN Reason: Shortness of Breath Clonazepam (Klonopin) 1 mg PO TID [facility] Colchicine (Colocrys) 0.6 mg PO BID [facility] Gabapentin (Neurontin) 100 mg PO TID [facility] Losartan Potassium (Cozaar) 100 mg PO DAILY [facility] Metformin HCl (Glucophage) 500 mg PO BIDCC [facility] Montelukast Sodium (Singulair) 10 mg PO [facility] Last Admin: 03/01/18 22:10 Dose: 10 mg Potassium Chloride (Klor-Con 10) 10 meq PO DAILY [facility] Saccharomyces Boulardii (Florastor) 250 mg PO DAILY [facility] Fluticasone/Salmeterol (Advair Diskus 250/50) 1 puff IH RQ12 [facility] Tramadol HCl (Ultram) 50 mg PO TID [facility] - Labs Labs: 03/01/18 15:54 03/01/18 15:54 PT 12.0 SECONDS (9.7-12.2) 03/01/18 15:54 INR 1.1 03/01/18 15:54 APTT 33 SECONDS (21-34) 03/01/18 15:54 - Constitutional Appears: Non-toxic, No Acute Distress - Head Exam Head Exam: ATRAUMATIC, NORMAL INSPECTION, NORMOCEPHALIC - Eye Exam Eye Exam: EOMI, Normal appearance Pupil Exam: NORMAL ACCOMODATION - ENT Exam ENT Exam: Mucous Membranes Moist - Neck Exam Neck Exam: Full ROM - Respiratory Exam Respiratory Exam: Clear to Ausculation Bilateral, NORMAL BREATHING PATTERN. absent: Rales, Rhonchi, Wheezes - Cardiovascular Exam Cardiovascular Exam: REGULAR RHYTHM, +S1, +S2 - GI/Abdominal Exam GI & Abdominal Exam: Soft, Normal Bowel Sounds. absent: Rigid, Tenderness - Rectal Exam Rectal Exam: Deferred - Extremities Exam Extremities Exam: Full ROM, Normal Inspection - Back Exam Back Exam: NORMAL INSPECTION - Neurological Exam Neurological Exam: Alert, Awake, Oriented x3 - Psychiatric Exam Psychiatric exam: Anxious, Depressed - Skin Skin Exam: Dry, Normal Color, Warm Assessment and Plan - Assessment and Plan (Free Text) Assessment: A/P: Patient is a 57 year old female with past medical history of A fib, HTN, HLD who presented to the hospital for chest pain and low heart rate. Chest pain R/O ACS, History of afib -Stable, afebrile -Troponins negative x 3 -CT chest ordered -Patient bradycardic on telemetry -Cardizem on hold, propanolol on hold -Will continue Colchicine 0.6mg PO BID and Ultram TID per cardio recs -Cardiology on consult, help appreciated History of COPD -Continue Singulair 10mg PO HS -Continue Advair Q12H -Albuterol Q6H prn GERD -Continue Protonix 40mg IVP daily -Carafate 1gm QID -Simethicone 80mg BID prn GI Distress History of Hypertension -Continue Cozaar 100mg PO daily -Monitor vitals History of Diabetes Mellitus -F/U HgA1c -Accuchecks ACHS and low dose ISS -Continue Metformin 500mg PO BID -Continue Gabapentin 100mg PO TID Depression/Anxiety -Patient tearful during entire encounter -Continue Klonopin 1 tab PO TID -Psych consulted, help appreciated - patient does not wish to see psych GI/DVT ppx: -Protonix 40mg IVP daily -Lovenox 40mg SC daily Plan discussed with Dr Raz Hector DO PGY-2 <Bladimir Zuñiga - Last Filed: 03/02/18 18:46> Objective - Vital Signs/Intake and Output Vital Signs (last 24 hours): Temp Pulse Resp BP Pulse Ox 97.2 F L 65 20 126/76 96 03/02/18 15:00 03/02/18 16:00 03/02/18 15:00 03/02/18 15:00 03/02/18 15:00 - Medications Medications: Current Medications Albuterol/Ipratropium (Combivent Respimat) 1 puff IH RQ6 [facility] Clonazepam (Klonopin) 1 mg PO TID [facility] Last Admin: 03/02/18 17:47 Dose: 1 mg Colchicine (Colocrys) 0.6 mg PO BID [facility] Last Admin: 03/02/18 17:47 Dose: 0.6 mg Enoxaparin Sodium (Lovenox) 40 mg SC DAILY [facility] Last Admin: 03/02/18 09:26 Dose: 40 mg Gabapentin (Neurontin) 100 mg PO TID [facility] Last Admin: 03/02/18 17:49 Dose: 100 mg Insulin Human Regular (Novolin R) 0 unit SC [facility] PRN Reason: Protocol Last Admin: 03/02/18 17:18 Dose: Not Given Losartan Potassium (Cozaar) 100 mg PO DAILY [facility] Last Admin: 03/02/18 09:26 Dose: 100 mg [facility] Last Admin: 03/02/18 08:08 Dose: Not Given Metoclopramide HCl (Reglan) 10 mg IVP Q8H PRN PRN Reason: Nausea/Vomiting Montelukast Sodium (Singulair) 10 mg PO HS [facility] Last Admin: 03/01/18 22:10 Dose: 10 mg Pantoprazole Sodium (Protonix Inj) 40 mg IVP DAILY [facility] Last Admin: 03/02/18 12:25 Dose: 40 mg Potassium Chloride (Klor-Con 10) 10 meq PO DAILY [facility] Last Admin: 03/02/18 09:26 Dose: 10 meq Fluticasone/Salmeterol (Advair Diskus 250/50) 1 puff IH RQ12 [facility] Last Admin: 03/02/18 10:39 Dose: Not Given Simethicone (Mylicon Chew Tab) 80 mg PO TID [facility] Last Admin: 03/02/18 17:47 Dose: 80 mg Sucralfate (Carafate Oral Susp) 1 gm PO QID [facility] Last Admin: 03/02/18 17:49 Dose: 1 gm Tramadol HCl (Ultram) 50 mg PO TID [facility] Last Admin: 03/02/18 17:48 Dose: 50 mg - Labs Labs: 03/02/18 11:08 03/02/18 11:08 PT 12.0 SECONDS (9.7-12.2) 03/01/18 15:54 INR 1.1 03/01/18 15:54 APTT 33 SECONDS (21-34) 03/01/18 15:54 Assessment and Plan (1) Chest pain Status: Acute (2) 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 (3) Abdominal pain Status: Acute (4) Acute bronchitis Status: Acute (5) Anxiety Status: Acute (6) Bradycardia Status: Acute (7) COPD (chronic obstructive pulmonary disease) Status: Acute (8) Chest discomfort Status: Acute (9) Chest pain Status: Acute (10) Chest pain at rest Status: Acute (11) Chr obstructive pulmonary disease w/ acute lower respiratory infxn Status: Acute (12) Diabetes Status: Acute (13) Dizziness Status: Acute (14) Dizziness Status: Acute (15) Near syncope Status: Acute (16) Palpitations Status: Acute (17) Palpitations Status: Acute (18) Panic disorder Status: Acute (19) S/P ablation of accessory bypass tract Status: Acute (20) SOB (shortness of breath) Status: Acute (21) Sinus tachycardia Status: Acute (22) Sinusitis chronic, sphenoidal Status: Acute (23) Syncope Status: Acute (24) Tachycardia Status: Acute (25) HTN (hypertension) Status: Chronic (26) Palpitations Status: Chronic Attending/Attestation - Attestation I have personally seen and examined this patient.: Yes I have fully participated in the care of the patient.: Yes I have reviewed all pertinent clinical information, including history, physical exam and plan: Yes Notes (Text): case seen and d.w staff and resident, concurred with finding and management..
[2018-03-02 08:03] LABS: CK-MB 0.25 ng/mL (0.0-3.38)
--- NOTE | 2018-03-02 08:05 | CP.PCM.PN ---
Subjective - Date & Time of Evaluation Date of Evaluation: 03/02/18 Time of Evaluation: 08:02 - Subjective Subjective: Less chest pain with tramadol. Pt is easily tearful. Concerned about her slow heart rate. TNi negative. Objective - Vital Signs/Intake and Output Vital Signs (last 24 hours): Temp Pulse Resp BP Pulse Ox 97.8 F 58 L 20 108/69 95 03/01/18 23:30 03/02/18 03:45 03/01/18 23:30 03/01/18 23:30 03/02/18 00:00 - Medications Medications: Current Medications Albuterol (Ventolin Hfa 90 Mcg/Actuation (8 G)) 2 puff IH RQ6 PRN PRN Reason: Cough Albuterol/Ipratropium (Combivent Respimat) 1 puff IH Q6H PRN PRN Reason: Shortness of Breath Clonazepam (Klonopin) 1 mg PO TID [facility] Colchicine (Colocrys) 0.6 mg PO BID [facility] Gabapentin (Neurontin) 100 mg PO TID [facility] Losartan Potassium (Cozaar) 100 mg PO DAILY [facility] Metformin HCl (Glucophage) 500 mg PO BIDCC [facility] Montelukast Sodium (Singulair) 10 mg PO HS [facility] Last Admin: 03/01/18 22:10 Dose: 10 mg Potassium Chloride (Klor-Con 10) 10 meq PO DAILY [facility] Saccharomyces Boulardii (Florastor) 250 mg PO DAILY [facility] Fluticasone/Salmeterol (Advair Diskus 250/50) 1 puff IH RQ12 [facility] Tramadol HCl (Ultram) 50 mg PO TID [facility] - Labs Labs: 03/01/18 15:54 03/01/18 15:54 PT 12.0 SECONDS (9.7-12.2) 03/01/18 15:54 INR 1.1 03/01/18 15:54 APTT 33 SECONDS (21-34) 03/01/18 15:54 - Constitutional Appears: Well - Head Exam Head Exam: ATRAUMATIC - Eye Exam Eye Exam: EOMI - ENT Exam ENT Exam: Mucous Membranes Moist - Neck Exam Neck Exam: Full ROM - Respiratory Exam Respiratory Exam: Clear to Ausculation Bilateral - Cardiovascular Exam Cardiovascular Exam: REGULAR RHYTHM - Exam External exam: NORMAL EXTERNAL EXAM - Extremities Exam Extremities Exam: Normal Inspection - Neurological Exam Neurological Exam: Alert, Awake, Oriented x3 - Psychiatric Exam Psychiatric exam: Depressed - Skin Skin Exam: Normal Color Assessment and Plan - Assessment and Plan (Free Text) Assessment: 1. Pt remains in sinus evert: TSH ordered. Cardezem held 2. BP actually low off meds this AM, 108 systolic. 3. Pt with chronic non anginal chest pain syndrome. Trial of colchicine. .6 bid , to be continued post discharge. 4. Pt cries easily, depressed, pysche eval should be considered.
[2018-03-02] MEDS: Potassium Chloride 10 mEq ER Tab PO SCH (09:26)
[2018-03-02] MEDS: Enoxaparin 40 mg Syringe SC SCH (09:26)
[2018-03-02] MEDS ORDERED: Saccharomyces Boulardi 250 mg Cap PO SCH (10:00)
[2018-03-02] MEDS ORDERED: Home Med 1 UNIT (Omeprazole [Omeprazole] 20 MG) PO SCH (10:00)
[2018-03-02] MEDS: Fluticasone-Salmeterol 250-50mcg Diskus IH SCH ×2 (10:39→19:45)
[2018-03-02 11:18] LABS: BASO # 0.1 K/uL (0.0-0.2); BASO % 0.9 % (0.0-2.0); EOS # 0.3 K/uL (0.0-0.7); EOS % 5.4 % (0.0-4.0); LYMPH # 1.9 K/uL (1.0-4.3); LYMPH % 31.5 % (20.0-40.0); MEAN CELL VOLUME 79.1 fL (81.0-99.0); MEAN CORPUSCULAR HGB CONC 32.9 g/dL (33.0-37.0); MEAN PLATELET VOLUME 8.3 fL (7.2-11.7); MONO # 0.3 K/uL (0.0-0.8); MONO % 5.7 % (0.0-10.0); NEUT # 3.4 K/uL (1.8-7.0); NEUT % 56.5 % (50.0-75.0); RBC 4.23 Mil/uL (3.80-5.20); RED CELL DISTRIBUTION WIDTH 15.9 % (11.5-14.5)
[2018-03-02 11:35] LABS: ALB/GLOB RATIO 1.3 (1.0-2.1); ALBUMIN 4.1 g/dL (3.5-5.0); ALT/SGPT 29 U/L (9-52); AST/SGOT 20 U/L (14-36); BLOOD UREA NITROGEN 16 mg/dL (7-17); CALCIUM 9.3 mg/dl (8.6-10.4); GFR AFRICAN-AMERICAN > 60; GFR NON-AFRICAN AMERICAN 52; HDL CHOLESTEROL 33 mg/dL (30-70)
[2018-03-02 11:45] LABS: LDL CHOLESTEROL 85 mg/dL (0-129)
--- NOTE | 2018-03-02 11:50 | CP.PCM.PN ---
Subjective - Date & Time of Evaluation Date of Evaluation: 03/02/18 Time of Evaluation: 10:45 - Subjective Subjective: clinically same Objective - Vital Signs/Intake and Output Vital Signs (last 24 hours): Temp Pulse Resp BP Pulse Ox 98.3 F 63 20 158/80 H 99 03/02/18 07:45 03/02/18 07:45 03/02/18 07:45 03/02/18 07:45 03/02/18 07:45 - Medications Medications: Current Medications Albuterol/Ipratropium (Combivent Respimat) 1 puff IH RQ6 [facility] Clonazepam (Klonopin) 1 mg PO TID [facility] Last Admin: 03/02/18 09:26 Dose: 1 mg Colchicine (Colocrys) 0.6 mg PO BID [facility] Last Admin: 03/02/18 09:29 Dose: 0.6 mg Enoxaparin Sodium (Lovenox) 40 mg SC DAILY [facility] Last Admin: 03/02/18 09:26 Dose: 40 mg Gabapentin (Neurontin) 100 mg PO TID [facility] Last Admin: 03/02/18 09:25 Dose: 100 mg Insulin Human Regular (Novolin R) 0 unit SC [facility] PRN Reason: Protocol Losartan Potassium (Cozaar) 100 mg PO DAILY [facility] Last Admin: 03/02/18 09:26 Dose: 100 mg [facility] Last Admin: 03/02/18 08:08 Dose: Not Given Metoclopramide HCl (Reglan) 10 mg IVP Q8H PRN PRN Reason: Nausea/Vomiting Montelukast Sodium (Singulair) 10 mg PO HS [facility] Last Admin: 03/01/18 22:10 Dose: 10 mg Pantoprazole Sodium (Protonix Inj) 40 mg IVP DAILY [facility] Potassium Chloride (Klor-Con 10) 10 meq PO DAILY [facility] Last Admin: 03/02/18 09:26 Dose: 10 meq Fluticasone/Salmeterol (Advair Diskus 250/50) 1 puff IH RQ12 [facility] Last Admin: 03/02/18 10:39 Dose: Not Given Simethicone (Mylicon Chew Tab) 80 mg PO TID [facility] Sucralfate (Carafate Tab) 1 gm PO BID PRN PRN Reason: GI distress Tramadol HCl (Ultram) 50 mg PO TID [facility] - Labs Labs: 03/02/18 11:08 03/02/18 11:08 PT 12.0 SECONDS (9.7-12.2) 03/01/18 15:54 INR 1.1 03/01/18 15:54 APTT 33 SECONDS (21-34) 03/01/18 15:54 - Constitutional Appears: Well - Head Exam Head Exam: ATRAUMATIC, NORMAL INSPECTION, NORMOCEPHALIC - Eye Exam Eye Exam: EOMI, Normal appearance, PERRL Pupil Exam: NORMAL ACCOMODATION, PERRL - ENT Exam ENT Exam: Mucous Membranes Moist, Normal Exam - Neck Exam Neck Exam: Full ROM, Normal Inspection. absent: Lymphadenopathy - Respiratory Exam Respiratory Exam: Decreased Breath Sounds - Cardiovascular Exam Cardiovascular Exam: REGULAR RHYTHM, +S1, +S2 - GI/Abdominal Exam GI & Abdominal Exam: Soft, Diminished Bowel Sounds - Rectal Exam Rectal Exam: Deferred
[2018-03-02] MEDS: Simethicone 80 mg Chewtab PO SCH ×3 (12:25→17:47)
[2018-03-02] MEDS: (Novolin R) Insulin Human Regular 100 units/ml vial SC SCH ×3 (12:40→22:12)
[2018-03-02] MEDS: Albuterol-Ipratrop 20 mcg/actuation (4 g) IH SCH ×2 (15:45→19:45)
--- NOTE | 2018-03-02 16:49 | CT ---
Date of service: 03/02/2018 PROCEDURE: CT Chest without contrast HISTORY: chest pain COMPARISON: 11/24/2017 CT chest TECHNIQUE: Contiguous axial images were obtained through the chest without intravenous contrast enhancement. Sagittal and coronal reconstructions were performed. Radiation dose (DLP): 768 mGy-cm. This CT exam was performed using one or more of the following dose reduction techniques: Automated exposure control, adjustment of the mA and/or kV according to patient size, and/or use of iterative reconstruction technique. FINDINGS: LUNGS: The row posterior right upper lobe linear scarring with nonspecific faint ground-glass inflammatory like changes surrounding it is similar- postinflammatory changes are believe most likely. There may be trace associated bronchiectasis here as well. This appearance is unchanged with the 11/24/2017 images per Visualized airway clear. MEDIASTINUM: Unremarkable thoracic aorta. No aneurysm. Normal sized heart. Main pulmonary artery unremarkable. No vascular congestion. The anterior right mediastinal lymph nodes nonspecific mild appearance the largest is rounded at 1.2 cm. This is unchanged. Another is seen anterior to it. Similar osteoid right peritracheal and aortopulmonary window smaller shotty lymph nodes noted. No change compared 11/24/2017. However further evaluation to ensure longer period of stability is recommended. There are etiology and clinical significance at this time is unclear. Sub carinal enrique density similar. PLEURA: No pleural fluid. No pneumothorax. BONES: No fracture. No destructive lesion. UPPER ABDOMEN: Gallbladder not visualized -as before. No clips here seen. Correlate clinically All hiatal hernia suggested OTHER FINDINGS: None. IMPRESSION: The linear scarring and the inferred nonspecific inflammatory changes probable trace bronchiectasis here similar with 11/24/2017 no interval pulmonary pathology here noted. Nonspecific mediastinal lymph nodes - not significantly changed in size/appear with the prior exam-the largest is 1.2 cm in rounded diameter right anterior mediastinum. Etiology and clinical significance (if any) is unknown. Continued surveillance is recommended consider follow-up CT chest imaging in 6 months to reassess for stability. Other findings -as above.
[2018-03-02] MEDS: Sucralfate 1 gm/10 ml Oral Susp UD PO SCH ×2 (17:49→21:43)
[2018-03-03] MEDS: Albuterol-Ipratrop 20 mcg/actuation (4 g) IH SCH ×3 (01:10→13:25)
--- NOTE | 2018-03-03 07:06 | CP.PCM.PN ---
Subjective - Date & Time of Evaluation Date of Evaluation: 03/03/18 Time of Evaluation: 07:05 - Subjective Subjective: Internal Medicine Progress Note - Dr Raz Zuñiga Service Patient seen and examined at bedside. Patient states that she is still having chest pain, it is constant and always there. Overnight she had an incident in the bathroom where she hurt her perineum while attempting to use the bathroom. Complaining of perineal discomfort. Denies headaches, dizziness, palpitations, sob, abdominal pain, urinary symptoms. Objective - Vital Signs/Intake and Output Vital Signs (last 24 hours): Temp Pulse Resp BP Pulse Ox 97.8 F 59 L 20 110/71 97 03/02/18 23:40 03/03/18 00:22 03/02/18 23:40 03/02/18 23:40 03/03/18 00:22 - Medications Medications: Current Medications Albuterol/Ipratropium (Combivent Respimat) 1 puff IH RQ6 [facility] Last Admin: 03/03/18 01:10 Dose: 1 puff Clonazepam (Klonopin) 1 mg PO TID [facility] Last Admin: 03/02/18 17:47 Dose: 1 mg Colchicine (Colocrys) 0.6 mg PO BID [facility] Last Admin: 03/02/18 17:47 Dose: 0.6 mg Enoxaparin Sodium (Lovenox) 40 mg SC DAILY [facility] Last Admin: 03/02/18 09:26 Dose: 40 mg Gabapentin (Neurontin) 100 mg PO TID [facility] Last Admin: 03/02/18 17:49 Dose: 100 mg Insulin Human Regular (Novolin R) 0 unit SC [facility] PRN Reason: Protocol Last Admin: 03/02/18 22:12 Dose: Not Given Losartan Potassium (Cozaar) 100 mg PO DAILY [facility] Last Admin: 03/02/18 09:26 Dose: 100 mg Metformin HCl (Glucophage) 500 mg PO BIDCC [facility] Last Admin: 03/02/18 08:08 Dose: Not Given Metoclopramide HCl (Reglan) 10 mg IVP Q8H PRN PRN Reason: Nausea/Vomiting Montelukast Sodium (Singulair) 10 mg PO HS [facility] Last Admin: 03/02/18 21:43 Dose: 10 mg Pantoprazole Sodium (Protonix Inj) 40 mg IVP DAILY [facility] Last Admin: 03/02/18 12:25 Dose: 40 mg Potassium Chloride (Klor-Con 10) 10 meq PO DAILY [facility] Last Admin: 03/02/18 09:26 Dose: 10 meq Fluticasone/Salmeterol (Advair Diskus 250/50) 1 puff IH RQ12 [facility] Last Admin: 03/02/18 19:45 Dose: Not Given Simethicone (Mylicon Chew Tab) 80 mg PO TID [facility] Last Admin: 03/02/18 17:47 Dose: 80 mg Sucralfate (Carafate Oral Susp) 1 gm PO QID [facility] Last Admin: 03/02/18 21:43 Dose: 1 gm Tramadol HCl (Ultram) 50 mg PO TID [facility] Last Admin: 03/02/18 17:48 Dose: 50 mg - Labs Labs: 03/02/18 11:08 03/02/18 11:08 PT 12.0 SECONDS (9.7-12.2) 03/01/18 15:54 INR 1.1 03/01/18 15:54 APTT 33 SECONDS (21-34) 03/01/18 15:54 - Additional Findings Additional findings: - Constitutional Appears: Non-toxic, No Acute Distress - Head Exam Head Exam: ATRAUMATIC, NORMAL INSPECTION, NORMOCEPHALIC - Eye Exam Eye Exam: EOMI, Normal appearance Pupil Exam: NORMAL ACCOMODATION - ENT Exam ENT Exam: Mucous Membranes Moist - Neck Exam Neck Exam: Full ROM - Respiratory Exam Respiratory Exam: Clear to Ausculation Bilateral, NORMAL BREATHING PATTERN. absent: Rales, Rhonchi, Wheezes - Cardiovascular Exam Cardiovascular Exam: REGULAR RHYTHM, +S1, +S2 - GI/Abdominal Exam GI & Abdominal Exam: Soft, Normal Bowel Sounds. absent: Rigid, Tenderness - Rectal Exam Rectal Exam: Deferred - Extremities Exam Extremities Exam: Full ROM, Normal Inspection - Back Exam Back Exam: NORMAL INSPECTION - Neurological Exam Neurological Exam: Alert, Awake, Oriented x3 - Psychiatric Exam Psychiatric exam: Anxious, Depressed - Skin Skin Exam: Dry, Normal Color, Warm Assessment and Plan - Assessment and Plan (Free Text) Assessment: A/P: Patient is a 57 year old female with past medical history of A fib, HTN, HLD who presented to the hospital for chest pain and low heart rate. Chest pain R/O ACS, History of afib -Stable, afebrile -Troponins negative x 3 -CT chest unchanged from prior study (see full report) -Patient bradycardic on telemetry yesterday, HR 60s today -Cardizem on hold, propanolol on hold -Will continue Colchicine 0.6mg PO BID and Ultram TID per cardio recs -Gabapentin increased to 200mg TID -Cardiology on consult, help appreciated -Patient reports that she did not tolerate exercise stress test in the past, may need nuclear stress test History of COPD -Continue Singulair 10mg PO HS -Continue Advair Q12H -Albuterol Q6H prn GERD -Continue Protonix 40mg IVP daily -Carafate 1gm QID -Simethicone 80mg BID prn GI Distress History of Hypertension -Continue Cozaar 100mg PO daily -Monitor vitals History of Diabetes Mellitus -HgA1c 5.1 -Accuchecks ACHS and low dose ISS -Continue Metformin 500mg PO BID -Continue Gabapentin 200mg PO TID Depression/Anxiety -Patient tearful during entire encounter -Continue Klonopin 1 tab PO TID -Psych consulted, help appreciated - patient does not wish to see psych GI/DVT ppx: -Protonix 40mg IVP daily -Lovenox 40mg SC daily Plan discussed with Dr Raz Hector DO PGY-2
[2018-03-03] MEDS: (Novolin R) Insulin Human Regular 100 units/ml vial SC SCH ×4 (08:01→22:31)
[2018-03-03] MEDS: Fluticasone-Salmeterol 250-50mcg Diskus IH SCH ×2 (08:12→19:56)
[2018-03-03 08:47] LABS: BASO # 0.1 K/uL (0.0-0.2); BASO % 0.9 % (0.0-2.0); EOS # 0.4 K/uL (0.0-0.7); EOS % 5.5 % (0.0-4.0); HEMOGLOBIN 11.3 g/dL (11.0-16.0); LYMPH # 2.1 K/uL (1.0-4.3); LYMPH % 32.6 % (20.0-40.0); MEAN CELL VOLUME 79.5 fL (81.0-99.0); MEAN CORPUSCULAR HEMOGLOBIN 26.2 pg (27.0-31.0); MEAN CORPUSCULAR HGB CONC 32.9 g/dL (33.0-37.0); MEAN PLATELET VOLUME 8.2 fL (7.2-11.7); MONO # 0.5 K/uL (0.0-0.8); MONO % 7.1 % (0.0-10.0); NEUT # 3.5 K/uL (1.8-7.0); NEUT % 53.9 % (50.0-75.0); NRBC % 0.1 % (0.0-2.0); RBC 4.34 Mil/uL (3.80-5.20); RED CELL DISTRIBUTION WIDTH 16.1 % (11.5-14.5); WHITE BLOOD COUNT 6.5 K/uL (4.8-10.8)
[2018-03-03 09:00] LABS: BLOOD UREA NITROGEN 18 mg/dL (7-17); CALCIUM 9.1 mg/dl (8.6-10.4); GFR AFRICAN-AMERICAN > 60; GFR NON-AFRICAN AMERICAN 58
[2018-03-03] MEDS: Enoxaparin 40 mg Syringe SC SCH (09:44)
[2018-03-03] MEDS: Simethicone 80 mg Chewtab PO SCH ×3 (09:45→18:44)
[2018-03-03] MEDS: Sucralfate 1 gm/10 ml Oral Susp UD PO SCH ×4 (09:45→22:15)
[2018-03-03] MEDS: Potassium Chloride 10 mEq ER Tab PO SCH (09:47)
--- NOTE | 2018-03-03 11:10 | PCM.PSYCH ---
Initial Psychiatric Evaluation - Initial Psychiatric Evaluation Type of Admission: Voluntary Legal Status: Capacity History of Present Illness and Precipitating Events: Patient is a 57 year old AA female with a history of depression and anxiety that presented to the ER with palpitations and lightheadness. The patient does have a history of atrial fibrillation and ablationsX2. The EKG showed normal sinus rhythm. Psychiatry was consulted for her depression and anxiety. The patient states that she cried yesterday because she was frustrated with her health and not having any answers for her current condition but she is not depressed. The patient denies any psych history and states that she needs no help mentally. The patient denies any suicidal ideation and says that she is confused as to why psychiatry was consulted. Past Medical Hx: atrial fibrillation, hypertension, diabetes, COPD, CHF, sleep apnea Past surgical Hx: 2 cardiac stents, cholecystectomy Social Hx: denies smoking, alcohol, and illicit drug use Current Medications: Active Medications Generic Name Dose Route Start Last Admin Trade Name Freq PRN Reason Stop Dose Admin Albuterol/Ipratropium 1 puff 03/02/18 14:00 03/03/18 08:12 Combivent Respimat IH Not Given RQ6 [facility] Clonazepam 1 mg 03/02/18 10:00 03/03/18 09:46 Klonopin PO 1 mg TID [facility] Administration Colchicine 0.6 mg 03/02/18 10:00 03/03/18 09:47 Colocrys PO 0.6 mg BID AN[facility] Administration Enoxaparin Sodium 40 mg 03/02/18 10:00 03/03/18 09:44 Lovenox SC 40 mg DAILY [facility] Administration Gabapentin 100 mg 03/02/18 10:00 03/03/18 09:47 Neurontin PO 100 mg TID AN[facility]IA Administration Insulin Human Regular 0 unit 03/02/18 11:30 03/03/18 08:01 Novolin R SC Not Given ACHS ANTONIA Protocol Losartan Potassium 100 mg 03/02/18 10:00 03/03/18 09:47 Cozaar PO 100 mg DAILY [facility] Administration Metformin HCl 500 mg 03/02/18 08:00 03/02/18 08:08 Glucophage PO Not Given BIDCC [facility] Metoclopramide HCl 10 mg 03/02/18 10:43 Reglan IVP Q8H PRN Nausea/Vomiting Montelukast Sodium 10 mg 03/01/18 22:00 03/02/18 21:43 Singulair PO 10 mg HS [facility] Administration Pantoprazole Sodium 40 mg 03/02/18 10:45 03/03/18 09:45 Protonix Inj IVP 40 mg DAILY [facility] Administration Potassium Chloride 10 meq 03/02/18 10:00 03/03/18 09:47 Klor-Con 10 PO 10 meq DAILY [facility] Administration Fluticasone/Salmeterol 1 puff 03/01/18 19:30 03/03/18 08:12 Advair Diskus 250/50 IH Not Given RQ12 [facility] Simethicone 80 mg 03/02/18 10:45 03/03/18 09:45 Mylicon Chew Tab PO 80 mg TID [facility] Administration Sucralfate 1 gm 03/02/18 18:00 03/03/18 09:45 Carafate Oral Susp PO 1 gm QID [facility] Administration Tramadol HCl 50 mg 03/02/18 10:00 03/03/18 09:45 Ultram PO 50 mg TID [facility] Administration Past Psychiatric History - Past Psychiatric History Previous Treatment History: None Pertinent Medical Hx (Current Medical&Sleep Prob, Allergies): Allergies Allergy/AdvReac Type Severity Reaction Status Date / Time verapamil Allergy Verified 03/01/18 13:54 escitalopram [From Lexapro] AdvReac ANAPHYLAXIS Verified 03/01/18 13:54 Flu vaccine Allergy ANAPHYLAXIS Uncoded 01/12/18 20:05 pnuemonia vaccine Allergy ANAPHYLAXIS Uncoded 01/12/18 20:05 wool Allergy ANAPHYLAXIS Uncoded 01/12/18 20:05 Albuterol HFA [Ventolin HFA 90 mcg/actuation (8 g)] 2 puff IH [id number] PRN #1 inhaler 10/13/13 metFORMIN [glucOPHAGE] 500 mg PO PRN PRN 01/10/17 Montelukast [Singulair] 10 mg PO DAILY #30 01/14/17 clonazePAM [Klonopin] 1 mg PO TID tab 01/14/17 Omeprazole 20 mg PO DAILY #30 [place]. 12/02/17 Albuterol/Ipratropium [Combivent Respimat] 1 puff IH Q6H PRN #1 inhaler Budesonide/Formoterol Fumarate [Symbicort 160-4.5 Mcg Inhaler] 1 aer IH Q12H #1 aer 12/29/17 Potassium Chloride 10 meq PO DAILY #30 tab.er.prt 12/29/17 Saccharomyces Boulardi [Florastor] 250 mg PO DAILY #10 cap 12/29/17 Diltiazem HCl [Cardizem] 1 tab PO TID 01/12/18 Propranolol [Inderal] 10 mg PO HS 01/13/18 Gabapentin [Neurontin] 100 mg PO TID #90 cap 01/16/18 Propranolol [Inderal] 5 mg PO TID #90 tab 01/16/18 Azithromycin [Zithromax] 250 mg PO DAILY #3 tab 02/03/18 Review of Systems - Review of Systems All systems: reviewed and no additional remarkable complaints except - Psychiatric Psychiatric: Anxiety. absent: Suicidal Ideation Mental Status Examination - Personal Presentation Personal Presentation: Looks stated age - Affect Affect: Constricted - Motor Activity Motor Activity: Calm - Reliability in Providing Information Reliability in Providing Information: Fair - Speech Speech: Organized - Mood Mood: Anxious - Formal Thought Process Formal Thought Process: No Impairment - Obsessions/Compulsions Obsessions: No Compulsions: No - Cognitive Functions Orientation: Person, Place, Situation, Time Sensorium: Alert Attention/Concentration: Attentive Abstract Thinking: [place] Estimate of Intelligence: Below average Judgement: Intact, as evidence by: Good judgement, Intact, as evidence by: Insight regarding need for hospitalization - Risk Risk: Diminished functioning - Limitations Limitations: Living alone DSM 5 DX - DSM 5 DSM 5 Diagnosis: Generalized anxiety disorder Major depressive disorder without psychotic features - Recommended/Plan of Treatment Treatment Recommendations and Plan of Treatment: Continue medications Klonopin 1mg TID Neurontin 200 mg TID Provide support and primary substance abuse counselor
[2018-03-03] MEDS ORDERED: Lidocaine 2% Jelly (30 ml) TOP PRN (12:22)
--- NOTE | 2018-03-03 20:13 | CP.PCM.PN ---
Subjective - Date & Time of Evaluation Date of Evaluation: 03/03/18 Time of Evaluation: 20:11 - Subjective Subjective: Seen and exmined Claims that not feeling well, but unable to specify Objective - Vital Signs/Intake and Output Vital Signs (last 24 hours): Temp Pulse Resp BP Pulse Ox 98.1 F 79 20 127/83 98 03/03/18 15:22 03/03/18 16:00 03/03/18 15:22 03/03/18 15:22 03/03/18 15:22 Intake and Output: 03/03/18 03/04/18 18:59 06:59 Intake Total 240 Balance 240 - Medications Medications: Current Medications Albuterol/Ipratropium (Combivent Respimat) 1 puff IH RQ6 [facility] Last Admin: 03/03/18 13:25 Dose: Not Given Clonazepam (Klonopin) 1 mg PO TID [facility] Last Admin: 03/03/18 18:44 Dose: 1 mg Colchicine (Colocrys) 0.6 mg PO BID [facility] Last Admin: 03/03/18 18:44 Dose: 0.6 mg Enoxaparin Sodium (Lovenox) 40 mg SC DAILY [facility] Last Admin: 03/03/18 09:44 Dose: 40 mg Gabapentin (Neurontin) 200 mg PO TID [facility] Last Admin: 03/03/18 18:44 Dose: 200 mg Insulin Human Regular (Novolin R) 0 unit SC [facility] PRN Reason: Protocol Last Admin: 03/03/18 16:42 Dose: Not Given Lidocaine HCl (Xylocaine 2%) 1 ea TOP BID PRN PRN Reason: perineal discomfort Last Admin: 03/03/18 14:26 Dose: 1 applic Losartan Potassium (Cozaar) 100 mg PO DAILY [facility] Last Admin: 03/03/18 09:47 Dose: 100 mg Metformin HCl (Glucophage) 500 mg PO BIDCC [facility] Last Admin: 03/02/18 08:08 Dose: Not Given Metoclopramide HCl (Reglan) 10 mg IVP Q8H PRN PRN Reason: Nausea/Vomiting Montelukast Sodium (Singulair) 10 mg PO HS [facility] Last Admin: 03/02/18 21:43 Dose: 10 mg Pantoprazole Sodium (Protonix Inj) 40 mg IVP DAILY [facility] Last Admin: 03/03/18 09:45 Dose: 40 mg Potassium Chloride (Klor-Con 10) 10 meq PO DAILY [facility] Last Admin: 03/03/18 09:47 Dose: 10 meq Fluticasone/Salmeterol (Advair Diskus 250/50) 1 puff IH RQ12 [facility] Last Admin: 03/03/18 19:56 Dose: Not Given Simethicone (Mylicon Chew Tab) 80 mg PO TID [facility] Last Admin: 03/03/18 18:44 Dose: 80 mg Sucralfate (Carafate Oral Susp) 1 gm PO QID [facility] Last Admin: 03/03/18 18:44 Dose: 1 gm Tramadol HCl (Ultram) 50 mg PO TID [facility] Last Admin: 03/03/18 18:44 Dose: 50 mg - Labs Labs: 03/03/18 08:37 03/03/18 08:37 PT 12.0 SECONDS (9.7-12.2) 03/01/18 15:54 INR 1.1 03/01/18 15:54 APTT 33 SECONDS (21-34) 03/01/18 15:54 - Constitutional Appears: No Acute Distress - Head Exam Head Exam: NORMAL INSPECTION - Eye Exam Eye Exam: EOMI Pupil Exam: PERRL - ENT Exam ENT Exam: Mucous Membranes Moist - Respiratory Exam Respiratory Exam: Clear to Ausculation Bilateral - Cardiovascular Exam Cardiovascular Exam: REGULAR RHYTHM, RRR. absent: JVD, Murmur - Neurological Exam Neurological Exam: Awake, CN II-XII Intact, Normal Gait, Oriented x3 - Psychiatric Exam Psychiatric exam: Normal Affect Assessment and Plan (1) Chest pain Assessment & Plan: Atypical presentation Patient had an essentially normal cath at [place] 10/2016 Preserved LV on echo No further cardiac work-up at this time Status: Acute (2) Bradycardia Status: Acute (3) Palpitations Assessment & Plan: Sinus tachycardia today H/o AVNRT s/p ablation Patient has records at [facility] [place] documenting NSR and sinus tach No evidence of atrial fibrillation Attempted to reassure the patient No further cardiac follow up at this time Status: Acute - Assessment and Plan (Free Text) Assessment: resolved Patient was on diltiazem and propranolol at home HR improved with stopping AV blockers
--- NOTE | 2018-03-03 20:47 | CP.PCM.PN ---
Subjective - Date & Time of Evaluation Date of Evaluation: 03/03/18 Time of Evaluation: 10:20 - Subjective Subjective: clinically same Objective - Vital Signs/Intake and Output Vital Signs (last 24 hours): Temp Pulse Resp BP Pulse Ox 98.1 F 79 20 127/83 98 03/03/18 15:22 03/03/18 16:00 03/03/18 15:22 03/03/18 15:22 03/03/18 15:22 Intake and Output: 03/03/18 03/04/18 18:59 06:59 Intake Total 240 Balance 240 - Medications Medications: Current Medications Albuterol/Ipratropium (Combivent Respimat) 1 puff IH RQ6 [facility] Last Admin: 03/03/18 13:25 Dose: Not Given Clonazepam (Klonopin) 1 mg PO TID [facility] Last Admin: 03/03/18 18:44 Dose: 1 mg Colchicine (Colocrys) 0.6 mg PO BID [facility] Last Admin: 03/03/18 18:44 Dose: 0.6 mg Enoxaparin Sodium (Lovenox) 40 mg SC DAILY [facility] Last Admin: 03/03/18 09:44 Dose: 40 mg Gabapentin (Neurontin) 200 mg PO TID [facility] Last Admin: 03/03/18 18:44 Dose: 200 mg Insulin Human Regular (Novolin R) 0 unit SC [facility] PRN Reason: Protocol Last Admin: 03/03/18 16:42 Dose: Not Given Lidocaine HCl (Xylocaine 2%) 1 ea TOP BID PRN PRN Reason: perineal discomfort Last Admin: 03/03/18 14:26 Dose: 1 applic Losartan Potassium (Cozaar) 100 mg PO DAILY [facility] Last Admin: 03/03/18 09:47 Dose: 100 mg Metformin HCl (Glucophage) 500 mg PO BIDCC [facility] Last Admin: 03/02/18 08:08 Dose: Not Given Metoclopramide HCl (Reglan) 10 mg IVP Q8H PRN PRN Reason: Nausea/Vomiting Montelukast Sodium (Singulair) 10 mg PO HS [facility] Last Admin: 03/02/18 21:43 Dose: 10 mg Pantoprazole Sodium (Protonix Inj) 40 mg IVP DAILY [facility] Last Admin: 03/03/18 09:45 Dose: 40 mg Potassium Chloride (Klor-Con 10) 10 meq PO DAILY [facility] Last Admin: 03/03/18 09:47 Dose: 10 meq Fluticasone/Salmeterol (Advair Diskus 250/50) 1 puff IH RQ12 [facility] Last Admin: 03/03/18 19:56 Dose: Not Given Simethicone (Mylicon Chew Tab) 80 mg PO TID [facility] Last Admin: 03/03/18 18:44 Dose: 80 mg Sucralfate (Carafate Oral Susp) 1 gm PO QID [facility] Last Admin: 03/03/18 18:44 Dose: 1 gm Tramadol HCl (Ultram) 50 mg PO TID [facility] Last Admin: 03/03/18 18:44 Dose: 50 mg - Labs Labs: 03/03/18 08:37 03/03/18 08:37 PT 12.0 SECONDS (9.7-12.2) 03/01/18 15:54 INR 1.1 03/01/18 15:54 APTT 33 SECONDS (21-34) 03/01/18 15:54 - Constitutional Appears: Well - Head Exam Head Exam: ATRAUMATIC, NORMAL INSPECTION, NORMOCEPHALIC - Eye Exam Eye Exam: EOMI, Normal appearance, PERRL Pupil Exam: NORMAL ACCOMODATION, PERRL - ENT Exam ENT Exam: Mucous Membranes Moist, Normal Exam - Neck Exam Neck Exam: Full ROM, Normal Inspection. 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 (3) Abdominal pain Status: Acute (4) Acute bronchitis Status: Acute (5) Anxiety Status: Acute (6) Bradycardia Status: Acute (7) COPD (chronic obstructive pulmonary disease) Status: Acute (8) Chest discomfort Status: Acute (9) Chest pain Status: Acute (10) Chest pain at rest Status: Acute (11) Chr obstructive pulmonary disease w/ acute lower respiratory infxn Status: Acute (12) Diabetes Status: Acute (13) Dizziness Status: Acute (14) Dizziness Status: Acute (15) Near syncope Status: Acute (16) Palpitations Status: Acute (17) Palpitations Status: Acute (18) Panic disorder Status: Acute (19) S/P ablation of accessory bypass tract Status: Acute (20) SOB (shortness of breath) Status: Acute (21) Sinus tachycardia Status: Acute (22) Sinusitis chronic, sphenoidal Status: Acute (23) Syncope Status: Acute (24) Tachycardia Status: Acute (25) HTN (hypertension) Status: Chronic (26) Palpitations Status: Chronic
[2018-03-04] MEDS: Fluticasone-Salmeterol 250-50mcg Diskus IH SCH ×2 (07:21→19:06)
[2018-03-04] MEDS: Albuterol-Ipratrop 20 mcg/actuation (4 g) IH SCH ×3 (07:21→19:06)
[2018-03-04] MEDS: (Novolin R) Insulin Human Regular 100 units/ml vial SC SCH ×4 (08:00→22:06)
--- NOTE | 2018-03-04 10:15 | CP.PCM.PN ---
Subjective - Date & Time of Evaluation Date of Evaluation: 03/04/18 Time of Evaluation: 10:13 - Subjective Subjective: PGY2 note for Dr. Zuñiga's service Pt seen and examined at bedside. Nursing reports no acute events overnight. Patient tearful this AM, and "saying I am sure something is wrong with my heart. " Patient reassurance given, and thorough recap of negative cardiac workup given. She admits chest/sternal pain this AM that is reproducible. Denies SOB, GERD symptoms, abd pain, plapitations, N/V. Objective - Vital Signs/Intake and Output Vital Signs (last 24 hours): Temp Pulse Resp BP Pulse Ox 98.3 F 78 20 140/73 95 03/04/18 08:02 03/04/18 08:02 03/04/18 08:02 03/04/18 08:02 03/04/18 08:02 Intake and Output: 03/04/18 03/04/18 06:59 18:59 Intake Total 240 Balance 240 - Medications Medications: Current Medications Albuterol/Ipratropium (Combivent Respimat) 1 puff IH RQ6 [facility] Last Admin: 03/04/18 07:21 Dose: Not Given Clonazepam (Klonopin) 1 mg PO TID [facility] Last Admin: 03/03/18 18:44 Dose: 1 mg Colchicine (Colocrys) 0.6 mg PO BID [facility] Last Admin: 03/03/18 18:44 Dose: 0.6 mg Enoxaparin Sodium (Lovenox) 40 mg SC DAILY [facility] Last Admin: 03/03/18 09:44 Dose: 40 mg Gabapentin (Neurontin) 200 mg PO TID [facility] Last Admin: 03/03/18 18:44 Dose: 200 mg Insulin Human Regular (Novolin R) 0 unit SC [facility] PRN Reason: Protocol Last Admin: 03/03/18 22:31 Dose: Not Given Lidocaine HCl (Xylocaine 2%) 1 ea TOP BID PRN PRN Reason: perineal discomfort Last Admin: 03/03/18 14:26 Dose: 1 applic Losartan Potassium (Cozaar) 100 mg PO DAILY [facility] Last Admin: 03/03/18 09:47 Dose: 100 mg [facility] Last Admin: 03/02/18 08:08 Dose: Not Given Metoclopramide HCl (Reglan) 10 mg IVP Q8H PRN PRN Reason: Nausea/Vomiting Montelukast Sodium (Singulair) 10 mg PO HS [facility] Last Admin: 03/03/18 22:15 Dose: 10 mg Pantoprazole Sodium (Protonix Inj) 40 mg IVP DAILY [facility] Last Admin: 03/03/18 09:45 Dose: 40 mg Potassium Chloride (Klor-Con 10) 10 meq PO DAILY [facility] Last Admin: 03/03/18 09:47 Dose: 10 meq Fluticasone/Salmeterol (Advair Diskus 250/50) 1 puff IH RQ12 [facility] Last Admin: 03/04/18 07:21 Dose: Not Given Simethicone (Mylicon Chew Tab) 80 mg PO TID [facility] Last Admin: 03/03/18 18:44 Dose: 80 mg Sucralfate (Carafate Oral Susp) 1 gm PO QID [facility] Last Admin: 03/03/18 22:15 Dose: 1 gm Tramadol HCl (Ultram) 50 mg PO TID [facility] Last Admin: 03/03/18 18:44 Dose: 50 mg - Labs Labs: 03/03/18 08:37 03/03/18 08:37 PT 12.0 SECONDS (9.7-12.2) 03/01/18 15:54 INR 1.1 03/01/18 15:54 APTT 33 SECONDS (21-34) 03/01/18 15:54 - Additional Findings Additional findings: - Constitutional Appears: Non-toxic, No Acute Distress - Head Exam Head Exam: ATRAUMATIC, NORMAL INSPECTION, NORMOCEPHALIC - Eye Exam Eye Exam: EOMI, Normal appearance Pupil Exam: NORMAL ACCOMODATION - ENT Exam ENT Exam: Mucous Membranes Moist - Neck Exam Neck Exam: Full ROM - Respiratory Exam Respiratory Exam: Clear to Ausculation Bilateral, NORMAL BREATHING PATTERN. absent: Rales, Rhonchi, Wheezes - Cardiovascular Exam Cardiovascular Exam: REGULAR RHYTHM, +S1, +S2 - GI/Abdominal Exam GI & Abdominal Exam: Soft, Normal Bowel Sounds. absent: Rigid, Tenderness - Rectal Exam Rectal Exam: Deferred - Extremities Exam Extremities Exam: Full ROM, Normal Inspection - Back Exam Back Exam: NORMAL INSPECTION - Neurological Exam Neurological Exam: Alert, Awake, Oriented x3 - Psychiatric Exam Psychiatric exam: Anxious, Depressed - Skin Skin Exam: Dry, Normal Color, Warm Assessment and Plan - Assessment and Plan (Free Text) Plan: A/P: Patient is a 57 year old female with past medical history of A fib, HTN, HLD who presented to the hospital for chest pain and low heart rate. Chest pain R/O ACS, History of afib (paroxysmal) Admit to tele Vitals Stable, Afebrile No Afib on monitor Troponins negative x 3 -CT chest unchanged from prior study (see full report) EKG (03/03/18): NSR @ 72 bpm, No acute ST/T wave changes ECHO (07/2017): LV EF WNL ~70%, Normal bi-ventricular function, No pericardial effusion -Cardizem on hold, propanolol on hold NSR on Tele monitoting -Will continue Colchicine 0.6mg PO BID and Ultram TID per cardio recs -Gabapentin increased to 200mg TID Cardiology, Dr. Lnyn's group on consult, help appreciated -[place] Cath (10/2016): "essentially normal" -No further cardiac workup at this time Cardiology, Dr. Rice, 2nd opinion per Dr. Zuñiga - f/u reccs History of COPD -Continue Singulair 10mg PO HS -Continue Advair Q12H -Albuterol Q6H prn GERD -Continue Protonix 40mg IVP daily -Carafate 1gm QID -Simethicone 80mg BID prn GI Distress History of Hypertension -Continue Cozaar 100mg PO daily -Monitor vitals Diabetes Mellitus -HgA1c 5.1 -Accuchecks ACHS and low dose ISS -Hypoglycemia protocol -HOLD Metformin 500mg PO BID -Continue Gabapentin 200mg PO TID Depression/Anxiety -Patient tearful during entire encounter -Continue Klonopin 1 tab PO TID, Neurontin 200mg PO TID GI/DVT ppx: Protonix 40mg IVP daily Lovenox 40mg SC daily [facility] Disposition: F/u [address]nd opinion [address]. Krystal Vann PGY2 Plan discussed with Dr Raz Zuñiga
[2018-03-04] MEDS: Simethicone 80 mg Chewtab PO SCH ×3 (10:34→17:49)
[2018-03-04] MEDS: Sucralfate 1 gm/10 ml Oral Susp UD PO SCH ×4 (10:34→22:02)
[2018-03-04] MEDS: Potassium Chloride 10 mEq ER Tab PO SCH (10:35)
[2018-03-04] MEDS: Enoxaparin 40 mg Syringe SC SCH (10:37)
--- NOTE | 2018-03-04 14:22 | CP.PCM.PN ---
Subjective - Date & Time of Evaluation Date of Evaluation: 03/04/18 Time of Evaluation: 10:45 - Subjective Subjective: clinically same Objective - Vital Signs/Intake and Output Vital Signs (last 24 hours): Temp Pulse Resp BP Pulse Ox 98.3 F 78 20 140/73 95 03/04/18 08:02 03/04/18 08:02 03/04/18 08:02 03/04/18 08:02 03/04/18 08:02 Intake and Output: 03/04/18 03/04/18 06:59 18:59 Intake Total 240 Balance 240 - Medications Medications: Current Medications Albuterol/Ipratropium (Combivent Respimat) 1 puff IH RQ6 [facility] Last Admin: 03/04/18 07:21 Dose: Not Given Clonazepam (Klonopin) 1 mg PO TID [facility] Last Admin: 03/04/18 13:37 Dose: 1 mg Colchicine (Colocrys) 0.6 mg PO BID [facility] Last Admin: 03/04/18 10:36 Dose: 0.6 mg Enoxaparin Sodium (Lovenox) 40 mg SC DAILY [facility] Last Admin: 03/04/18 10:37 Dose: 40 mg Gabapentin (Neurontin) 200 mg PO TID [facility] Last Admin: 03/04/18 13:36 Dose: 200 mg Insulin Human Regular (Novolin R) 0 unit SC [facility] PRN Reason: Protocol Last Admin: 03/04/18 12:46 Dose: Not Given Lidocaine HCl (Xylocaine 2%) 1 ea TOP BID PRN PRN Reason: perineal discomfort Last Admin: 03/03/18 14:26 Dose: 1 applic Losartan Potassium (Cozaar) 100 mg PO DAILY [facility] Last Admin: 03/04/18 10:36 Dose: 100 mg Metformin HCl (Glucophage) 500 mg PO BIDCC [facility] Last Admin: 03/02/18 08:08 Dose: Not Given Metoclopramide HCl (Reglan) 10 mg IVP Q8H PRN PRN Reason: Nausea/Vomiting Montelukast Sodium (Singulair) 10 mg PO HS [facility] Last Admin: 03/03/18 22:15 Dose: 10 mg Pantoprazole Sodium (Protonix Inj) 40 mg IVP DAILY [facility] Last Admin: 03/04/18 10:36 Dose: 40 mg Potassium Chloride (Klor-Con 10) 10 meq PO DAILY [facility] Last Admin: 03/04/18 10:35 Dose: 10 meq Fluticasone/Salmeterol (Advair Diskus 250/50) 1 puff IH RQ12 [facility] Last Admin: 03/04/18 07:21 Dose: Not Given Simethicone (Mylicon Chew Tab) 80 mg PO TID [facility] Last Admin: 03/04/18 13:38 Dose: 80 mg Sucralfate (Carafate Oral Susp) 1 gm PO QID [facility] Last Admin: 03/04/18 13:37 Dose: 1 gm Tramadol HCl (Ultram) 50 mg PO TID [facility] Last Admin: 03/04/18 13:37 Dose: 50 mg - Labs Labs: 03/03/18 08:37 03/03/18 08:37 PT 12.0 SECONDS (9.7-12.2) 03/01/18 15:54 INR 1.1 03/01/18 15:54 APTT 33 SECONDS (21-34) 03/01/18 15:54 - Constitutional Appears: Well - Head Exam Head Exam: ATRAUMATIC, NORMAL INSPECTION, NORMOCEPHALIC - Eye Exam Eye Exam: EOMI, Normal appearance, PERRL Pupil Exam: NORMAL ACCOMODATION, PERRL - ENT Exam ENT Exam: Mucous Membranes Moist, Normal Exam - Neck Exam Neck Exam: Full ROM, Normal Inspection. 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 (3) Abdominal pain Status: Acute (4) Acute bronchitis Status: Acute (5) Anxiety Status: Acute (6) Bradycardia Status: Acute (7) COPD (chronic obstructive pulmonary disease) Status: Acute (8) Chest discomfort Status: Acute (9) Chest pain Status: Acute (10) Chest pain at rest Status: Acute (11) Chr obstructive pulmonary disease w/ acute lower respiratory infxn Status: Acute (12) Diabetes Status: Acute (13) Dizziness Status: Acute (14) Dizziness Status: Acute (15) Near syncope Status: Acute (16) Palpitations Status: Acute (17) Palpitations Status: Acute (18) Panic disorder Status: Acute (19) S/P ablation of accessory bypass tract Status: Acute (20) SOB (shortness of breath) Status: Acute (21) Sinus tachycardia Status: Acute (22) Sinusitis chronic, sphenoidal Status: Acute (23) Syncope Status: Acute (24) Tachycardia Status: Acute (25) HTN (hypertension) Status: Chronic (26) Palpitations Status: Chronic
--- NOTE | 2018-03-04 15:39 | CP.PCM.CON ---
History of Present Illness - History of Present Illness History of Present Illness: 57 year old with recurrent admissions for CP has been with normal EKG, echo EST and last year normal coronary on cardiac cath. V Q scan was low prob. now yet again with reproducable CP, seen by Dr Lynn. Prior ablation X 2. I was called for 2nd openion. agree with Dr Lynn, continue emotional support and assurance. possible drug seeking behavior Review of Systems - Constitutional Constitutional: Anorexia, Weakness - EENT Eyes: absent: Discharge Ears: absent: Ear Discharge, Dizziness Nose/Mouth/Throat: absent: Epistaxis - Cardiovascular Cardiovascular: Chest Pain. absent: Acrocyanosis, Diaphoresis, Dyspnea, Syncope - Respiratory Respiratory: absent: Cough, Dyspnea, Hemoptysis - Gastrointestinal Gastrointestinal: absent: Abdominal Pain, Diarrhea, Vomiting - Genitourinary Genitourinary: absent: Change in Urinary Stream - Reproductive: Female Reproductive:Female: Post Menopausal Past Patient History - Infectious Disease Hx of Infectious Diseases: None - Tetanus Immunizations Tetanus Immunization: Unknown - Past Medical History & Family History Past Medical History?: Yes - Past Social History Smoking Status: Never Smoked - CARDIAC Hx Atrial Fibrillation: Yes Hx Cardia Arrhythmia: Yes Hx Congestive Heart Failure: Yes Hx Hypercholesterolemia: Yes Hx Hypertension: Yes - PULMONARY Hx Chronic Obstructive Pulmonary Disease (COPD): Yes - NEUROLOGICAL Hx Neurological Disorder: Yes HX Cerebrovascular Accident: Yes Hx Dizziness: Yes - HEENT Hx HEENT Problems: Yes Other/Comment: wears glasses for reading - RENAL Hx Chronic Kidney Disease: No - ENDOCRINE/METABOLIC Hx Endocrine Disorders: Yes Hx Diabetes Mellitus Type 1: Yes - HEMATOLOGICAL/ONCOLOGICAL Hx Blood Disorders: No - INTEGUMENTARY Hx Dermatological Problems: Yes Hx Eczema: Yes - MUSCULOSKELETAL/RHEUMATOLOGICAL Hx Arthritis: Yes (hands) - GASTROINTESTINAL Hx Gall Bladder Disease: Yes Hx Gastritis: Yes - GENITOURINARY/GYNECOLOGICAL Hx Genitourinary Disorders: No - PSYCHIATRIC Hx Anxiety: Yes Hx Depression: Yes Hx Substance Use: No - SURGICAL HISTORY Hx Cholecystectomy: Yes Hx Coronary Stent: Yes (x2) - ANESTHESIA Hx Anesthesia: Yes Hx Anesthesia Reactions: No Meds Allergies/Adverse Reactions: Allergies Allergy/AdvReac Type Severity Reaction Status Date / Time verapamil Allergy Verified 03/01/18 13:54 escitalopram [From Lexapro] AdvReac ANAPHYLAXIS Verified 03/01/18 13:54 Flu vaccine Allergy ANAPHYLAXIS Uncoded 01/12/18 20:05 pnuemonia vaccine Allergy ANAPHYLAXIS Uncoded 01/12/18 20:05 wool Allergy ANAPHYLAXIS Uncoded 01/12/18 20:05 - Medications Medications: Current Medications Albuterol/Ipratropium (Combivent Respimat) 1 puff IH RQ6 [facility] Last Admin: 03/04/18 15:29 Dose: Not Given Clonazepam (Klonopin) 1 mg PO TID [facility] Last Admin: 03/04/18 13:37 Dose: 1 mg Colchicine (Colocrys) 0.6 mg PO BID [facility] Last Admin: 03/04/18 10:36 Dose: 0.6 mg Enoxaparin Sodium (Lovenox) 40 mg SC DAILY [facility] Last Admin: 03/04/18 10:37 Dose: 40 mg Gabapentin (Neurontin) 200 mg PO TID [facility] Last Admin: 03/04/18 13:36 Dose: 200 mg Insulin Human Regular (Novolin R) 0 unit SC [facility] PRN Reason: Protocol Last Admin: 03/04/18 12:46 Dose: Not Given Lidocaine HCl (Xylocaine 2%) 1 ea TOP BID PRN PRN Reason: perineal discomfort Last Admin: 03/03/18 14:26 Dose: 1 applic Losartan Potassium (Cozaar) 100 mg PO DAILY [facility] Last Admin: 03/04/18 10:36 Dose: 100 mg [facility] Last Admin: 03/02/18 08:08 Dose: Not Given Metoclopramide HCl (Reglan) 10 mg IVP Q8H PRN PRN Reason: Nausea/Vomiting Montelukast Sodium (Singulair) 10 mg PO HS [facility] Last Admin: 03/03/18 22:15 Dose: 10 mg Pantoprazole Sodium (Protonix Inj) 40 mg IVP DAILY [facility] Last Admin: 03/04/18 10:36 Dose: 40 mg Potassium Chloride (Klor-Con 10) 10 meq PO DAILY [facility] Last Admin: 03/04/18 10:35 Dose: 10 meq Fluticasone/Salmeterol (Advair Diskus 250/50) 1 puff IH RQ12 [facility] Last Admin: 03/04/18 07:21 Dose: Not Given Simethicone (Mylicon Chew Tab) 80 mg PO TID [facility] Last Admin: 03/04/18 13:38 Dose: 80 mg Sucralfate (Carafate Oral Susp) 1 gm PO QID [facility] Last Admin: 03/04/18 13:37 Dose: 1 gm Tramadol HCl (Ultram) 50 mg PO TID [facility] Last Admin: 03/04/18 13:37 Dose: 50 mg Physical Exam - Constitutional Appears: Non-toxic - Head Exam Head Exam: ATRAUMATIC - Eye Exam Eye Exam: EOMI - ENT Exam ENT Exam: Mucous Membranes Moist - Neck Exam Neck exam: Negative for: Lymphadenopathy, Thyromegaly - Respiratory Exam Respiratory Exam: Clear to Auscultation Bilateral. absent: Rales, Stridor - Cardiovascular Exam Cardiovascular Exam: REGULAR RHYTHM. absent: Gallop - GI/Abdominal Exam GI & Abdominal Exam: Normal Bowel Sounds. absent: Organomegaly, Tenderness - Rectal Exam Rectal Exam: Deferred - Extremities Exam Extremities exam: Positive for: normal capillary refill. Negative for: calf tenderness - Neurological Exam Neurological exam: Alert, Oriented x3 - Psychiatric Exam Psychiatric exam: Anxious - Skin Skin Exam: Dry Results - Vital Signs Recent Vital Signs: Last Vital Signs Temp 98.3 F 03/04/18 08:02 Pulse 78 03/04/18 08:02 Resp 20 03/04/18 08:02 BP 140/73 03/04/18 08:02 Pulse Ox 95 03/04/18 08:02 - Labs Result Diagrams: 03/05/18 07:23 03/05/18 07:23 Labs: Laboratory Results - last 24 hr 03/03/18 03/03/18 03/04/18 16:42 21:02 06:43 POC Glucose (mg/dL) 81 84 94 03/04/18 12:07 POC Glucose (mg/dL) 94 Assessment & Plan (1) Chest pain Status: Acute Comment: reproducable (2) Anxiety Status: Acute
[2018-03-05] MEDS: Albuterol-Ipratrop 20 mcg/actuation (4 g) IH SCH ×3 (01:38→20:08)
[2018-03-05] MEDS: (Novolin R) Insulin Human Regular 100 units/ml vial SC SCH ×4 (07:04→21:46)
[2018-03-05] MEDS: Fluticasone-Salmeterol 250-50mcg Diskus IH SCH ×2 (07:20→20:08)
[2018-03-05 07:35] LABS: BASO # 0.1 K/uL (0.0-0.2); BASO % 1.4 % (0.0-2.0); EOS # 0.4 K/uL (0.0-0.7); EOS % 7.3 % (0.0-4.0); HEMOGLOBIN 12.1 g/dL (11.0-16.0); LYMPH % 40.7 % (20.0-40.0); MEAN CORPUSCULAR HEMOGLOBIN 26.5 pg (27.0-31.0); MEAN CORPUSCULAR HGB CONC 33.6 g/dL (33.0-37.0); MEAN PLATELET VOLUME 8.9 fL (7.2-11.7); MONO # 0.4 K/uL (0.0-0.8); MONO % 8.7 % (0.0-10.0); NEUT # 2.1 K/uL (1.8-7.0); NEUT % 41.9 % (50.0-75.0); RBC 4.57 Mil/uL (3.80-5.20); RED CELL DISTRIBUTION WIDTH 15.7 % (11.5-14.5); WHITE BLOOD COUNT 4.9 K/uL (4.8-10.8)
[2018-03-05 07:50] LABS: ALB/GLOB RATIO 1.2 (1.0-2.1); ALBUMIN 4.5 g/dL (3.5-5.0); ALT/SGPT 18 U/L (9-52); AST/SGOT 25 U/L (14-36); BLOOD UREA NITROGEN 16 mg/dL (7-17); CALCIUM 9.4 mg/dl (8.6-10.4); GFR AFRICAN-AMERICAN > 60; GFR NON-AFRICAN AMERICAN > 60
[2018-03-05] MEDS: Enoxaparin 40 mg Syringe SC SCH (10:09)
[2018-03-05] MEDS: Simethicone 80 mg Chewtab PO SCH ×3 (10:09→19:07)
[2018-03-05] MEDS: Sucralfate 1 gm/10 ml Oral Susp UD PO SCH ×4 (10:09→22:33)
[2018-03-05] MEDS: Potassium Chloride 10 mEq ER Tab PO SCH (10:17)
--- NOTE | 2018-03-05 11:43 | CARD ---
APPROVED REPORT Date of service: 03/04/2018 EKG Measurement Heart [id number] <Conclusion> Normal sinus rhythm Normal ECG
--- NOTE | 2018-03-05 12:13 | CARD ---
APPROVED REPORT Date of service: 03/03/2018 EKG Measurement Heart [id number] <Conclusion> nsr, baseline artifacts. please repeat Abnormal ECG
--- NOTE | 2018-03-05 13:10 | CP.PCM.PN ---
Subjective - Date & Time of Evaluation Date of Evaluation: 03/05/18 Time of Evaluation: 13:08 - Subjective Subjective: PGY2 note for Dr. Zuñiga's service Pt seen and examined at bedside. Nursing reports no acute events overnight. Patient states her reproducible sternal pain is "the same today" as yesterday. Patient remains concerned that her "heart rate is all over the place" and does not want to be discharged. She admits to high levels of anxiety due to concerns for her health. She denies shortness of breath, pressure-like chest pain, headache, abd pain, N/V. Objective - Vital Signs/Intake and Output Vital Signs (last 24 hours): Temp Pulse Resp BP Pulse Ox 98 F 64 20 129/78 99 03/05/18 07:00 03/05/18 08:02 03/05/18 07:00 03/05/18 07:00 03/05/18 07:00 Intake and Output: 03/05/18 03/05/18 06:59 18:59 Intake Total 400 Balance 400 - Medications Medications: Current Medications Albuterol/Ipratropium (Combivent Respimat) 1 puff IH RQ6 [facility] Last Admin: 03/05/18 07:20 Dose: Not Given Clonazepam (Klonopin) 1 mg PO TID [facility] Last Admin: 03/05/18 10:09 Dose: 1 mg Colchicine (Colocrys) 0.6 mg PO BID [facility] Last Admin: 03/05/18 10:09 Dose: 0.6 mg Enoxaparin Sodium (Lovenox) 40 mg SC DAILY [facility] Last Admin: 03/05/18 10:09 Dose: 40 mg Gabapentin (Neurontin) 200 mg PO TID [facility] Last Admin: 03/05/18 10:08 Dose: 200 mg Insulin Human Regular (Novolin R) 0 unit SC [facility] PRN Reason: Protocol Last Admin: 03/05/18 11:52 Dose: Not Given Lidocaine HCl (Xylocaine 2%) 1 ea TOP BID PRN PRN Reason: perineal discomfort Last Admin: 03/03/18 14:26 Dose: 1 applic Losartan Potassium (Cozaar) 100 mg PO DAILY [facility] Last Admin: 03/05/18 10:08 Dose: 100 mg [facility] Last Admin: 07/10/18 08:08 Dose: Not Given Metoclopramide HCl (Reglan) 10 mg IVP Q8H PRN PRN Reason: Nausea/Vomiting Montelukast Sodium (Singulair) 10 mg PO HS [facility] Last Admin: 03/04/18 22:02 Dose: 10 mg Pantoprazole Sodium (Protonix Inj) 40 mg IVP DAILY [facility] Last Admin: 03/05/18 10:08 Dose: 40 mg Potassium Chloride (Klor-Con 10) 10 meq PO DAILY [facility] Last Admin: 03/05/18 10:17 Dose: 10 meq Fluticasone/Salmeterol (Advair Diskus 250/50) 1 puff IH RQ12 [facility] Last Admin: 03/05/18 07:20 Dose: Not Given Simethicone (Mylicon Chew Tab) 80 mg PO TID [facility] Last Admin: 03/05/18 10:09 Dose: 80 mg Sucralfate (Carafate Oral Susp) 1 gm PO QID [facility] Last Admin: 03/05/18 10:09 Dose: 1 gm Tramadol HCl (Ultram) 50 mg PO TID [facility] Last Admin: 03/05/18 10:08 Dose: 50 mg - Labs Labs: 03/05/18 07:23 03/05/18 07:23 PT 12.0 SECONDS (9.7-12.2) 03/01/18 15:54 INR 1.1 03/01/18 15:54 APTT 33 SECONDS (21-34) 03/01/18 15:54 - Additional Findings Additional findings: - Constitutional Appears: Non-toxic, No Acute Distress - Head Exam Head Exam: ATRAUMATIC, NORMAL INSPECTION, NORMOCEPHALIC - Eye Exam Eye Exam: EOMI, Normal appearance Pupil Exam: NORMAL ACCOMODATION - ENT Exam ENT Exam: Mucous Membranes Moist - Neck Exam Neck Exam: Full ROM - Respiratory Exam Respiratory Exam: Clear to Ausculation Bilateral, NORMAL BREATHING PATTERN. absent: Rales, Rhonchi, Wheezes - Cardiovascular Exam Cardiovascular Exam: REGULAR RHYTHM, +S1, +S2, reproducible chest pain with sternal palpation - GI/Abdominal Exam GI & Abdominal Exam: Soft, Normal Bowel Sounds. absent: Rigid, Tenderness - Rectal Exam Rectal Exam: Deferred - Extremities Exam Extremities Exam: Full ROM, Normal Inspection - Back Exam Back Exam: NORMAL INSPECTION - Neurological Exam Neurological Exam: Alert, Awake, Oriented x3 - Psychiatric Exam Psychiatric exam: Anxious, Depressed - Skin Skin Exam: Dry, Normal Color, Warm Assessment and Plan - Assessment and Plan (Free Text) Plan: A/P: Patient is a 57 year old female with past medical history of A fib, HTN, HLD who presented to the hospital for chest pain and low heart rate. Chest pain R/O ACS, History of afib (paroxysmal) Admit to tele Vitals Stable, Afebrile No Afib on monitor Troponins negative x 3 -CT chest unchanged from prior study (see full report) EKG (03/03/18): NSR @ 72 bpm, No acute ST/T wave changes ECHO (07/2017): LV EF WNL ~70%, Normal bi-ventricular function, No pericardial effusion -Cardizem on hold, propanolol on hold NSR on Tele monitoting -Will continue Colchicine 0.6mg PO BID and Ultram TID per cardio recs -Gabapentin increased to 200mg TID Cardiology, Dr. Lynn's group on consult, help appreciated -[place] Cath (10/2016): "essentially normal" -No further cardiac workup at this time Cardiology, Dr. Rice, 2nd opinion per Dr. Zuñiga - Non-cardiac angina; continue emotional support and assurance History of COPD -Continue Singulair 10mg PO HS -Continue Advair Q12H -Albuterol Q6H prn GERD -Continue Protonix 40mg IVP daily -Carafate 1gm QID -Simethicone 80mg BID prn GI Distress History of Hypertension -Continue Cozaar 100mg PO daily -Monitor vitals Diabetes Mellitus -HgA1c 5.1 -Accuchecks ACHS and low dose ISS -Hypoglycemia protocol -HOLD Metformin 500mg PO BID -Continue Gabapentin 200mg PO TID Depression/Anxiety -Patient tearful during entire encounter -Continue Klonopin 1 tab PO TID, Neurontin 200mg PO TID GI/DVT ppx: Protonix 40mg IVP daily Lovenox 40mg SC daily [facility] Disposition: Pt for additional night observation per Dr Zuñiga. Discharge planning for AM. Baljinder Vann PGY2 Plan discussed with Dr Raz Zuñiga
--- NOTE | 2018-03-05 14:27 | CP.PCM.PN ---
Subjective - Date & Time of Evaluation Date of Evaluation: 03/05/18 Time of Evaluation: 12:00 - Subjective Subjective: no pain asking for satisfying meds for pain, anxious, assured. Objective - Vital Signs/Intake and Output Vital Signs (last 24 hours): Temp Pulse Resp BP Pulse Ox 98 F 64 20 129/78 99 03/05/18 07:00 03/05/18 08:02 03/05/18 07:00 03/05/18 07:00 03/05/18 07:00 Intake and Output: 03/05/18 03/05/18 06:59 18:59 Intake Total 400 Balance 400 - Medications Medications: Current Medications Albuterol/Ipratropium (Combivent Respimat) 1 puff IH RQ6 [facility] Last Admin: 03/05/18 07:20 Dose: Not Given Clonazepam (Klonopin) 1 mg PO TID [facility] Last Admin: 03/05/18 13:40 Dose: 1 mg Colchicine (Colocrys) 0.6 mg PO BID [facility] Last Admin: 03/05/18 10:09 Dose: 0.6 mg Enoxaparin Sodium (Lovenox) 40 mg SC DAILY [facility] Last Admin: 03/05/18 10:09 Dose: 40 mg Gabapentin (Neurontin) 200 mg PO TID [facility] Last Admin: 03/05/18 13:40 Dose: 200 mg Insulin Human Regular (Novolin R) 0 unit SC [facility] PRN Reason: Protocol Last Admin: 03/05/18 11:52 Dose: Not Given Lidocaine HCl (Xylocaine 2%) 1 ea TOP BID PRN PRN Reason: perineal discomfort Last Admin: 03/03/18 14:26 Dose: 1 applic Losartan Potassium (Cozaar) 100 mg PO DAILY [facility] Last Admin: 03/05/18 10:08 Dose: 100 mg Metformin HCl (Glucophage) 500 mg PO BIDCC [facility] Last Admin: 03/02/18 08:08 Dose: Not Given Metoclopramide HCl (Reglan) 10 mg IVP Q8H PRN PRN Reason: Nausea/Vomiting Montelukast Sodium (Singulair) 10 mg PO HS [facility] Last Admin: 03/04/18 22:02 Dose: 10 mg Pantoprazole Sodium (Protonix Inj) 40 mg IVP DAILY [facility] Last Admin: 03/05/18 10:08 Dose: 40 mg Potassium Chloride (Klor-Con 10) 10 meq PO DAILY [facility] Last Admin: 03/05/18 10:17 Dose: 10 meq Fluticasone/Salmeterol (Advair Diskus 250/50) 1 puff IH RQ12 [facility] Last Admin: 03/05/18 07:20 Dose: Not Given Simethicone (Mylicon Chew Tab) 80 mg PO TID [facility] Last Admin: 03/05/18 13:40 Dose: 80 mg Sucralfate (Carafate Oral Susp) 1 gm PO QID [facility] Last Admin: 03/05/18 13:40 Dose: 1 gm Tramadol HCl (Ultram) 50 mg PO TID [facility] Last Admin: 03/05/18 13:40 Dose: 50 mg - Labs Labs: 03/05/18 07:23 03/05/18 07:23 PT 12.0 SECONDS (9.7-12.2) 03/01/18 15:54 INR 1.1 03/01/18 15:54 APTT 33 SECONDS (21-34) 03/01/18 15:54 - Constitutional Appears: Non-toxic - Head Exam Head Exam: ATRAUMATIC - Eye Exam Eye Exam: EOMI - ENT Exam ENT Exam: Mucous Membranes Moist - Neck Exam Neck Exam: absent: Lymphadenopathy, Thyromegaly - Respiratory Exam Respiratory Exam: Chest Wall Tenderness, Clear to Ausculation Bilateral. absent : Rales - Cardiovascular Exam Cardiovascular Exam: REGULAR RHYTHM. absent: Gallop - GI/Abdominal Exam GI & Abdominal Exam: Normal Bowel Sounds. absent: Organomegaly - Rectal Exam Rectal Exam: Deferred - Extremities Exam Extremities Exam: Normal Capillary Refill. absent: Calf Tenderness - Neurological Exam Neurological Exam: Alert, Oriented x3 - Psychiatric Exam Psychiatric exam: Anxious - Skin Skin Exam: Dry Assessment and Plan (1) Chest pain Status: Acute (2) Anxiety Status: Acute
--- NOTE | 2018-03-05 20:41 | CP.PCM.PN ---
Subjective - Date & Time of Evaluation Date of Evaluation: 03/05/18 Time of Evaluation: 11:35 - Subjective Subjective: clinically same Objective - Vital Signs/Intake and Output Vital Signs (last 24 hours): Temp Pulse Resp BP Pulse Ox 98.7 F 90 20 131/83 98 03/05/18 15:00 03/05/18 17:30 03/05/18 15:00 03/05/18 15:00 03/05/18 15:00 - Medications Medications: Current Medications Albuterol/Ipratropium (Combivent Respimat) 1 puff IH RQ6 [facility] Last Admin: 03/05/18 20:08 Dose: Not Given Clonazepam (Klonopin) 1 mg PO TID [facility] Last Admin: 03/05/18 17:58 Dose: 1 mg Colchicine (Colocrys) 0.6 mg PO BID [facility] Last Admin: 03/05/18 17:58 Dose: 0.6 mg Enoxaparin Sodium (Lovenox) 40 mg SC DAILY [facility] Last Admin: 03/05/18 10:09 Dose: 40 mg Gabapentin (Neurontin) 200 mg PO TID [facility] Last Admin: 03/05/18 17:59 Dose: 200 mg Insulin Human Regular (Novolin R) 0 unit SC [facility] PRN Reason: Protocol Last Admin: 03/05/18 16:31 Dose: Not Given Lidocaine HCl (Xylocaine 2%) 1 ea TOP BID PRN PRN Reason: perineal discomfort Last Admin: 03/03/18 14:26 Dose: 1 applic Losartan Potassium (Cozaar) 100 mg PO DAILY [facility] Last Admin: 03/05/18 10:08 Dose: 100 mg Metformin HCl (Glucophage) 500 mg PO BIDCC [facility] Last Admin: 03/02/18 08:08 Dose: Not Given Metoclopramide HCl (Reglan) 10 mg IVP Q8H PRN PRN Reason: Nausea/Vomiting Montelukast Sodium (Singulair) 10 mg PO HS [facility] Last Admin: 03/04/18 22:02 Dose: 10 mg Pantoprazole Sodium (Protonix Inj) 40 mg IVP DAILY [facility] Last Admin: 03/05/18 10:08 Dose: 40 mg Potassium Chloride (Klor-Con 10) 10 meq PO DAILY [facility] Last Admin: 03/05/18 10:17 Dose: 10 meq Fluticasone/Salmeterol (Advair Diskus 250/50) 1 puff IH RQ12 [facility] Last Admin: 03/05/18 20:08 Dose: Not Given Simethicone (Mylicon Chew Tab) 80 mg PO TID [facility] Last Admin: 03/05/18 19:07 Dose: 80 mg Sucralfate (Carafate Oral Susp) 1 gm PO QID [facility] Last Admin: 03/05/18 17:58 Dose: 1 gm Tramadol HCl (Ultram) 50 mg PO TID [facility] Last Admin: 03/05/18 17:59 Dose: 50 mg - Labs Labs: 03/05/18 07:23 03/05/18 07:23 PT 12.0 SECONDS (9.7-12.2) 03/01/18 15:54 INR 1.1 03/01/18 15:54 APTT 33 SECONDS (21-34) 03/01/18 15:54 Assessment and Plan (1) Chest pain Status: Acute (2) 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 (3) Abdominal pain Status: Acute (4) Acute bronchitis Status: Acute (5) Anxiety Status: Acute (6) Bradycardia Status: Acute (7) COPD (chronic obstructive pulmonary disease) Status: Acute (8) Chest discomfort Status: Acute (9) Chest pain Status: Acute (10) Chest pain at rest Status: Acute (11) Chr obstructive pulmonary disease w/ acute lower respiratory infxn Status: Acute (12) Diabetes Status: Acute (13) Dizziness Status: Acute (14) Dizziness Status: Acute (15) Near syncope Status: Acute (16) Palpitations Status: Acute (17) Palpitations Status: Acute (18) Panic disorder Status: Acute (19) S/P ablation of accessory bypass tract Status: Acute (20) SOB (shortness of breath) Status: Acute (21) Sinus tachycardia Status: Acute (22) Sinusitis chronic, sphenoidal Status: Acute (23) Syncope Status: Acute (24) Tachycardia Status: Acute (25) HTN (hypertension) Status: Chronic (26) Palpitations Status: Chronic
[2018-03-06] MEDS: Albuterol-Ipratrop 20 mcg/actuation (4 g) IH SCH ×3 (01:20→13:44)
[2018-03-06 06:23] LABS: HEMOGLOBIN 11.5 g/dL (11.0-16.0); MEAN CELL VOLUME 78.5 fL (81.0-99.0); MEAN CORPUSCULAR HEMOGLOBIN 26.2 pg (27.0-31.0); MEAN CORPUSCULAR HGB CONC 33.3 g/dL (33.0-37.0); MEAN PLATELET VOLUME 8.5 fL (7.2-11.7); RBC 4.37 Mil/uL (3.80-5.20); RED CELL DISTRIBUTION WIDTH 15.8 % (11.5-14.5)
[2018-03-06 06:36] LABS: BLOOD UREA NITROGEN 19 mg/dL (7-17); GFR AFRICAN-AMERICAN > 60; GFR NON-AFRICAN AMERICAN > 60
[2018-03-06] MEDS: (Novolin R) Insulin Human Regular 100 units/ml vial SC SCH ×2 (07:38→12:37)
[2018-03-06] MEDS: Fluticasone-Salmeterol 250-50mcg Diskus IH SCH (07:39)
[2018-03-06 07:47] VITALS: PULSE 77
[2018-03-06 08:33] VITALS: BP 133/81; TEMP 98.1; O2SAT 97
[2018-03-06] MEDS: Sucralfate 1 gm/10 ml Oral Susp UD PO SCH (09:52)
[2018-03-06] MEDS: Simethicone 80 mg Chewtab PO SCH (09:53)
[2018-03-06] MEDS: Potassium Chloride 10 mEq ER Tab PO SCH (10:00)
[2018-03-06] MEDS: Enoxaparin 40 mg Syringe SC SCH (10:00)
--- NOTE | 2018-03-06 13:50 | CP.PCM.PN ---
Subjective - Date & Time of Evaluation Date of Evaluation: 03/06/18 Time of Evaluation: 12:15 - Subjective Subjective: ACTIMIZE ARCHITECT NOTES Patient seen today with , as per Dr. Raz kaiser patient stable for discharge home today and f/u with Dr. Posadas office on Thursday rx given for micardis Objective - Vital Signs/Intake and Output Vital Signs (last 24 hours): Temp Pulse Resp BP Pulse Ox 98.1 F 77 20 133/81 97 03/06/18 07:00 03/06/18 07:45 03/06/18 07:00 03/06/18 07:00 03/06/18 07:00 Intake and Output: 03/06/18 03/06/18 06:59 18:59 Intake Total 120 Balance 120 - Medications Medications: Current Medications Albuterol/Ipratropium (Combivent Respimat) 1 puff IH RQ6 [facility] Last Admin: 03/06/18 13:44 Dose: Not Given Clonazepam (Klonopin) 1 mg PO TID [facility] Last Admin: 03/06/18 09:53 Dose: 1 mg Colchicine (Colocrys) 0.6 mg PO BID [facility] Last Admin: 03/06/18 10:00 Dose: 0.6 mg Enoxaparin Sodium (Lovenox) 40 mg SC DAILY [facility] Last Admin: 03/06/18 10:00 Dose: 40 mg Gabapentin (Neurontin) 200 mg PO TID [facility] Last Admin: 03/06/18 09:52 Dose: 200 mg Insulin Human Regular (Novolin R) 0 unit SC [facility] PRN Reason: Protocol Last Admin: 03/06/18 12:37 Dose: Not Given Lidocaine HCl (Xylocaine 2%) 1 ea TOP BID PRN PRN Reason: perineal discomfort Last Admin: 03/03/18 14:26 Dose: 1 applic Losartan Potassium (Cozaar) 100 mg PO DAILY [facility] Last Admin: 03/06/18 09:53 Dose: 100 mg [facility] Last Admin: 03/02/18 08:08 Dose: Not Given Metoclopramide HCl (Reglan) 10 mg IVP Q8H PRN PRN Reason: Nausea/Vomiting Montelukast Sodium (Singulair) 10 mg PO [facility] Last Admin: 03/05/18 22:34 Dose: 10 mg Pantoprazole Sodium (Protonix Inj) 40 mg IVP DAILY [facility] Last Admin: 03/06/18 09:52 Dose: 40 mg Potassium Chloride (Klor-Con 10) 10 meq PO DAILY [facility] Last Admin: 03/06/18 10:00 Dose: 10 meq Fluticasone/Salmeterol (Advair Diskus 250/50) 1 puff IH RQ12 [facility] Last Admin: 03/06/18 07:39 Dose: Not Given Simethicone (Mylicon Chew Tab) 80 mg PO TID [facility] Last Admin: 03/06/18 09:53 Dose: 80 mg Sucralfate (Carafate Oral Susp) 1 gm PO QID [facility] Last Admin: 03/06/18 09:52 Dose: 1 gm Tramadol HCl (Ultram) 50 mg PO TID [facility] Last Admin: 03/06/18 09:52 Dose: 50 mg - Labs Labs: 03/06/18 06:17 03/06/18 06:17 PT 12.0 SECONDS (9.7-12.2) 03/01/18 15:54 INR 1.1 03/01/18 15:54 APTT 33 SECONDS (21-34) 03/01/18 15:54
== END 2018-03-06 13:55 | disposition home or self-care (01) | DRG 313 ==
LOC: C.ER 13:38 → C.9E 16:44 → C.6T 18:58 → OBSVTOIN 03-04 17:43
PROVIDERS: ADMIT Internal Medicine Nephrology; ATTEND Internal Medicine Nephrology
DX: R07.9 Chest pain, unspecified (principal); F41.1 Generalized anxiety disorder; F32.9 Major depressive disorder, single episode, unspecified; E78.5 Hyperlipidemia, unspecified; F41.0 Panic disorder [episodic paroxysmal anxiety]; G89.29 Other chronic pain; G47.30 Sleep apnea, unspecified; I50.9 Heart failure, unspecified; I11.0 Hypertensive heart disease with heart failure; I25.10 Atherosclerotic heart disease of native coronary artery without angina pectoris; I48.0 Paroxysmal atrial fibrillation; Z95.5 Presence of coronary angioplasty implant and graft; K21.9 Gastro-esophageal reflux disease without esophagitis; J44.9 Chronic obstructive pulmonary disease, unspecified; E11.9 Type 2 diabetes mellitus without complications

== ENCOUNTER 2018-04-12 20:17 | Inpatient (IN) | payer MEDICARE, MEDICAID ==
[2018-04-12 20:17] VITALS: BMI 40.5
[2018-04-12] MEDS ORDERED: Sodium Chloride 0.9% 1,000 ML IV ONE (20:34)
[2018-04-12] MEDS ORDERED: Aspirin 325 mg EC Tablets PO STA (20:34)
--- NOTE | 2018-04-12 20:34 | C.PDOC ---
History Of Present Illness The patient presents to the ED for evaluation of chest pain and abdominal pain which began yesterday. Patient is somewhat tearful in the ED and is stating that she does not feel well. She describes a dull, aching chest wall discomfort. Patient denies fever, chills, shortness of breath, nausea, and vomiting. Time Seen by Provider: 04/12/18 20:34 Chief Complaint (Nursing): Chest Pain History Per: Patient History/Exam Limitations: no limitations Onset/Duration Of Symptoms: Hrs Current Symptoms Are (Timing): Still Present Severity: Moderate Pain Scale Rating Of: 4 Reports Recently: Seen In ED, Treated By A Physician, Hospitalized Recent travel outside of the [place]: No Additional History Per: Patient Past Medical History Reviewed: Historical Data, Nursing Documentation, Vital Signs Vital Signs: Last Vital Signs Temp 98.6 F 04/12/18 20:22 Pulse 74 04/12/18 21:18 Resp 18 04/12/18 21:18 BP 126/73 04/12/18 21:18 Pulse Ox 94 L 04/12/18 21:42 - Medical History PMH: Anxiety, Arthritis (hands), Atrial Fibrillation, CAD, Cardia Arrhythmia, CHF, COPD, Depression, Diabetes (hypoglycemia), Gastritis, Gall Bladder Disease , HTN, Hypercholesterolemia Denies: Chronic Kidney Disease Surgical History: Cholecystectomy, Coronary Stent (x2) - [facility] Procedures EXCISION OF STOMACH, ENDO, DIAGN (11/25/17) Family History: States: Unknown Family Hx - Social History Hx Tobacco Use: Yes (QUIT) Hx Alcohol Use: No Hx Substance Use: No - Immunization History Hx Tetanus Toxoid Vaccination: No Hx Influenza Vaccination: No Hx Pneumococcal Vaccination: No Review Of Systems Constitutional: Negative for: Fever, Chills Cardiovascular: Positive for: Chest Pain. Negative for: Palpitations Respiratory: Negative for: Shortness of Breath Gastrointestinal: Positive for: Abdominal Pain. Negative for: Nausea, Vomiting , Diarrhea, Constipation Genitourinary: Negative for: Dysuria, Hematuria, Vaginal Discharge, Vaginal Bleeding Musculoskeletal: Negative for: Back Pain Skin: Negative for: Rash, Lesions, Jaundice, Bruising Psych: Negative for: Anxiety Physical Exam - Physical Exam Appears: Non-toxic, No Acute Distress, Other (tearful ) Skin: Warm, Dry Head: Normacephalic Eye(s): bilateral: Normal Inspection Oral Mucosa: Moist Neck: Supple Chest: Symmetrical, No Deformity, No Tenderness Cardiovascular: Rhythm Regular, No Murmur Respiratory: No Rales, No Rhonchi, No Wheezing Gastrointestinal/Abdominal: Soft, No Tenderness, Distention, No Guarding, No Rebound, Other (abdomen tympanic to percussion ) Back: No CVA Tenderness Extremity: Normal ROM, Capillary Refill (less than 2 seconds ) Extremity: Bilateral: Atraumatic, No Pedal Edema, Normal Color And Temperature Pulses: Left Dorsalis Pedis: Normal, Right Dorsalis Pedis: Normal Neurological/Psych: Oriented x3 Gait: Steady ED Course And Treatment - Laboratory Results Result Diagrams: 04/12/18 20:42 04/12/18 20:42 ECG: Interpreted By Me, Viewed By Me ECG Rhythm: Sinus Rhythm (84), Nonspecific Changes O2 Sat by Pulse Oximetry: 94 (on RA) Pulse Ox Interpretation: Normal - Radiology CXR: Interpreted by Me, Viewed By Me Progress Note: Bloodwork, CXR, and EKG ordered and reviewed. Aspirin PO, Protonix IVP, Zofran IVP and IV Fluids given. Disposition Discussed With DrLennie: Bladimir Zuñiga Comment: accepted the pt on his service and took over the care at 10:06 PM Doctor Will See Patient In The: Hospital Counseled Patient/Family Regarding: Studies Performed, Diagnosis - Disposition Disposition: HOSPITALIZED Disposition Time: 20:34 Condition: FAIR Forms: [facility] (Romansh) - POA Present On Arrival: Poor Glycemic Control - Clinical Impression Clinical Impression: Nausea, Chest pain, Abdominal pain - Scribe Statement The provider has reviewed the documentation as recorded by the Scribe (Jolynn Zuñiga) Provider Attestation: All medical record entries made by the Scribe were at my direction and personally dictated by me. I have reviewed the chart and agree that the record accurately reflects my personal performance of the history, physical exam, medical decision making, and the department course for this patient. I have also personally directed, reviewed, and agree with the discharge instructions and disposition. Decision To Admit - Pt Status Changed To: Hospital Disposition Of: Inpatient - Admit Certification Admit to Inpatient:: After my assessment, the patient will require hospitalization for at least two midnights. This is because of the severity of symptoms shown, intensity of services needed, and/or the medical risk in this patient being treated as an outpatient. - InPatient: Physician Admission Certification: I certify that this patient requires 2 or more midnights of care for the following reason:: After my assessment, the patient will require hospitalization for at least two midnights. This is because of the severity of symptoms shown, intensity of services needed, and/or the medical risk in this patient being treated as an outpatient. - . Bed Request Type: Telemetry Admitting Physician: Bladimir Zuñiga Patient Diagnosis: Nausea, Chest pain, Abdominal pain
[2018-04-12 20:45] LABS: BASO # 0.1 K/uL (0.0-0.2); BASO % 0.9 % (0.0-2.0); EOS # 0.3 K/uL (0.0-0.7); EOS % 3.6 % (0.0-4.0); HEMOGLOBIN 11.7 g/dL (11.0-16.0); LYMPH # 2.5 K/uL (1.0-4.3); LYMPH % 30.3 % (20.0-40.0); MEAN CELL VOLUME 77.7 fL (81.0-99.0); MEAN CORPUSCULAR HEMOGLOBIN 25.9 pg (27.0-31.0); MEAN CORPUSCULAR HGB CONC 33.3 g/dL (33.0-37.0); MEAN PLATELET VOLUME 8.7 fL (7.2-11.7); MONO # 0.4 K/uL (0.0-0.8); MONO % 5.2 % (0.0-10.0); NRBC % 0.1 % (0.0-2.0); RBC 4.5 Mil/uL (3.80-5.20); RED CELL DISTRIBUTION WIDTH 16.5 % (11.5-14.5)
[2018-04-12 20:51] LABS: WHITE BLOOD COUNT 8.4 K/uL (4.8-10.8)
[2018-04-12 21:03] LABS: ALB/GLOB RATIO 1.1 (1.0-2.1); ALBUMIN 4.1 g/dL (3.5-5.0); CALCIUM 9.3 mg/dl (8.6-10.4); GFR NON-AFRICAN AMERICAN > 60
[2018-04-12 21:05] LABS: ALT/SGPT 24 U/L (9-52); AST/SGOT 21 U/L (14-36); BLOOD UREA NITROGEN 19 mg/dL (7-17)
[2018-04-12 21:08] LABS: INR 1.1; PROTHROMBIN TIME 12.1 SECONDS (9.7-12.2)
[2018-04-12 21:15] LABS: B-TYPE NATRIURETIC PEPTIDE 14.8 pg/mL (0-900)
--- NOTE | 2018-04-13 06:01 | CP.PCM.PN ---
Subjective - Date & Time of Evaluation Date of Evaluation: 04/13/18 Time of Evaluation: 06:00 - Subjective Subjective: PGY2 Medicine Note for Dr. Raz Zuñiga Patient seen and examined this morning at bedside. Objective - Vital Signs/Intake and Output Vital Signs (last 24 hours): Temp Pulse Resp BP Pulse Ox 98.6 F 72 18 134/77 96 04/12/18 20:22 04/13/18 05:50 04/13/18 05:50 04/13/18 05:50 04/13/18 05:50 - Labs Labs: 04/12/18 20:42 04/12/18 20:42 PT 12.1 SECONDS (9.7-12.2) 04/12/18 20:42 INR 1.1 04/12/18 20:42 APTT 31 SECONDS (21-34) 04/12/18 20:42
--- NOTE | 2018-04-13 07:16 | CP.PCM.PN ---
Subjective - Date & Time of Evaluation Date of Evaluation: 04/13/18 Objective - Vital Signs/Intake and Output Vital Signs (last 24 hours): Temp Pulse Resp BP Pulse Ox 98.6 F 72 18 134/77 96 04/12/18 20:22 04/13/18 05:50 04/13/18 05:50 04/13/18 05:50 04/13/18 05:50 - Medications Medications: Current Medications Albuterol/Ipratropium (Combivent Respimat) 1 puff IH Q6H PRN PRN Reason: Shortness of Breath Aspirin (Aspirin) 325 mg PO DAILY [facility] Clonazepam (Klonopin) 1 mg PO TID [facility] Gabapentin (Neurontin) 100 mg PO TID [facility] Home Med (Budesonide/Formoterol Fumarate [Symbicort 160-4.5 Mcg Inhaler]) 1 aer IH Q12H [facility] Home Med (Omeprazole [Omeprazole]) 20 mg PO DAILY [facility] Metformin HCl (Glucophage) 500 mg PO PRN PRN PRN Reason: high blood sugar Montelukast Sodium (Singulair) 10 mg PO DAILY [facility] Sucralfate (Carafate Oral Susp) 1 gm PO TID [facility] - Labs Labs: 04/12/18 20:42 04/12/18 20:42 PT 12.1 SECONDS (9.7-12.2) 04/12/18 20:42 INR 1.1 04/12/18 20:42 APTT 31 SECONDS (21-34) 04/12/18 20:42
[2018-04-13] MEDS ORDERED: Fluticasone-Salmeterol 250-50mcg Diskus IH SCH (08:00)
[2018-04-13 08:26] LABS: CK-MB 0.59 ng/mL (0.0-3.38)
[2018-04-13] MEDS ORDERED: Albuterol-Ipratrop 20 mcg/actuation (4 g) IH PRN (09:00)
[2018-04-13] MEDS: Albuterol-Ipratrop 3 mg / 0.5 (3 ml) UD INH SCH ×2 (09:10→20:32)
[2018-04-13] MEDS ORDERED: Albuterol-Ipratrop 3 mg / 0.5 (3 ml) UD ONE (09:11)
[2018-04-13] MEDS: Sucralfate 1 gm/10 ml Oral Susp UD PO SCH ×3 (10:05→17:48)
[2018-04-13] MEDS: Pantoprazole 40 mg EC Tab PO SCH (10:06)
--- NOTE | 2018-04-13 10:37 | RAD ---
HISTORY: chest pain COMPARISON: Chest x-ray performed 03/01/18 TECHNIQUE: Chest, one view. FINDINGS: Examination limited by habitus. LUNGS: No focal consolidation. Please note that chest x-ray has limited sensitivity for the detection of pulmonary masses. PLEURA: No significant pleural effusion identified. No definite pneumothorax . CARDIOVASCULAR: Heart size appears top normal. OSSEOUS STRUCTURES: No acute osseous abnormality identified. VISUALIZED UPPER ABDOMEN: Unremarkable. OTHER FINDINGS: None. IMPRESSION: No focal consolidation identified.
[2018-04-13] MEDS: (Novolog) Insulin Aspart, Recombinant 100 u/ml 10 ml vial SC SCH ×3 (14:15→22:05)
[2018-04-13] MEDS: Enoxaparin 40 mg Syringe SC SCH (14:54)
--- NOTE | 2018-04-13 16:26 | CP.PCM.CON ---
History of Present Illness - History of Present Illness History of Present Illness: The pt is well known to me for multiple admissions form both here [place] [facility] The pat had svt ablation a few years ago without recurrences. She has htn. pt has been admitted for chest pain more than a dozen times, A stress test was normal. TNI are always normal and ecg normal. Pt has normal LV EF. pt slipped on a toy yesterday, then later, fell out of bed. She then felt fadly , vague chest pain, admitted again and again negative work up. pt reported a fast heart beat, but nsr noted. pt is often tearful, and has seen psyche in the past. Review of Systems - Review of Systems All systems: reviewed and no additional remarkable complaints except (as above.) Past Patient History - Infectious Disease Hx of Infectious Diseases: None - Tetanus Immunizations Tetanus Immunization: Unknown - Past Medical History & Family History Past Medical History?: Yes - Past Social History Smoking Status: Former Smoker - CARDIAC Hx Cardiac Disorders: Yes Hx Atrial Fibrillation: Yes Hx Cardia Arrhythmia: Yes Hx Congestive Heart Failure: Yes Hx Hypercholesterolemia: Yes Hx Hypertension: Yes - PULMONARY Hx Respiratory Disorders: Yes Hx Chronic Obstructive Pulmonary Disease (COPD): Yes - NEUROLOGICAL Hx Neurological Disorder: Yes HX Cerebrovascular Accident: Yes Hx Dizziness: Yes - HEENT Hx HEENT Problems: Yes Other/Comment: wears glasses for reading - RENAL Hx Chronic Kidney Disease: No - ENDOCRINE/METABOLIC Hx Endocrine Disorders: Yes Hx Diabetes Mellitus Type 1: Yes - HEMATOLOGICAL/ONCOLOGICAL Hx Blood Disorders: No - INTEGUMENTARY Hx Dermatological Problems: Yes Hx Eczema: Yes - MUSCULOSKELETAL/RHEUMATOLOGICAL Hx Musculoskeletal Disorders: Yes Hx Arthritis: Yes (hands) Hx Falls: No - GASTROINTESTINAL Hx Gastrointestinal Disorders: Yes Hx Gall Bladder Disease: Yes Hx Gastritis: Yes - GENITOURINARY/GYNECOLOGICAL Hx Genitourinary Disorders: No - PSYCHIATRIC Hx Psychophysiologic Disorder: Yes Hx Anxiety: Yes Hx Depression: Yes Hx Substance Use: No - SURGICAL HISTORY Hx Surgeries: Yes Hx Cholecystectomy: Yes Hx Coronary Stent: Yes (x2) - ANESTHESIA Hx Anesthesia: Yes Hx Anesthesia Reactions: No Meds Allergies/Adverse Reactions: Allergies Allergy/AdvReac Type Severity Reaction Status Date / Time verapamil Allergy Verified 04/12/18 20:31 escitalopram [From Lexapro] AdvReac ANAPHYLAXIS Verified 04/12/18 20:31 Flu vaccine Allergy ANAPHYLAXIS Uncoded 04/12/18 20:31 pnuemonia vaccine Allergy ANAPHYLAXIS Uncoded 04/12/18 20:31 wool Allergy ANAPHYLAXIS Uncoded 04/12/18 20:31 - Medications Medications: Current Medications Albuterol/Ipratropium (Duoneb 3 Mg/0.5 Mg (3 Ml) Ud) 3 ml INH RQ6 [facility] Last Admin: 04/13/18 09:10 Dose: 3 ml Aspirin (Aspirin) 325 mg PO DAILY [facility] Last Admin: 04/13/18 10:05 Dose: 325 mg Clonazepam (Klonopin) 1 mg PO TID [facility] Last Admin: 04/13/18 14:14 Dose: 1 mg Enoxaparin Sodium (Lovenox) 40 mg SC DAILY [facility] Last Admin: 04/13/18 14:54 Dose: 40 mg Gabapentin (Neurontin) 100 mg PO TID [facility] Last Admin: 04/13/18 14:14 Dose: 100 mg Insulin Aspart (Novolog) 0 unit SC [facility] PRN Reason: Protocol Last Admin: 04/13/18 14:15 Dose: Not Given Metformin HCl (Glucophage) 500 mg PO BIDCC [facility] Montelukast Sodium (Singulair) 10 mg PO HS [facility] Pantoprazole Sodium (Protonix Ec Tab) 20 mg PO DAILY [facility] Last Admin: 04/13/18 10:06 Dose: 20 mg Fluticasone/Salmeterol (Advair Diskus 250/50) 1 puff IH RQ12 [facility] Last Admin: 04/13/18 08:47 Dose: Not Given Sucralfate (Carafate Oral Susp) 1 gm PO ACTID [facility] Last Admin: 04/13/18 14:00 Dose: Not Given Physical Exam - Constitutional Appears: Well - Head Exam Head Exam: ATRAUMATIC - Eye Exam Eye Exam: EOMI - ENT Exam ENT Exam: Mucous Membranes Moist - Neck Exam Neck exam: Positive for: Normal Inspection - Respiratory Exam Respiratory Exam: Clear to Auscultation Bilateral - Cardiovascular Exam Cardiovascular Exam: REGULAR RHYTHM - GI/Abdominal Exam GI & Abdominal Exam: Normal Bowel Sounds - Rectal Exam Rectal Exam: NORMAL INSPECTION - Exam External exam: NORMAL EXTERNAL EXAM - Extremities Exam Extremities exam: Positive for: normal inspection - Back Exam Back exam: NORMAL INSPECTION - Neurological Exam Neurological exam: Alert, Oriented x3, Reflexes Normal - Psychiatric Exam Psychiatric exam: Normal Affect, Normal Mood - Skin Skin Exam: Normal Color Results - Vital Signs Recent Vital Signs: Last Vital Signs Temp 98.2 F 04/13/18 11:03 Pulse 98 H 04/13/18 11:03 Resp 18 04/13/18 11:03 BP 122/79 04/13/18 11:03 Pulse Ox 98 04/13/18 11:03 - Labs Result Diagrams: 04/12/18 20:42 04/12/18 20:42 Labs: Laboratory Results - last 24 hr 04/12/18 04/12/18 04/12/18 20:23 20:42 20:42 WBC 8.4 D RBC 4.50 Hgb 11.7 Hct 35.0 MCV 77.7 L MCH 25.9 L MCHC 33.3 RDW 16.5 H Plt Count 291 MPV 8.7 Neut % (Auto) 60.0 Lymph % (Auto) 30.3 Coos % (Auto) 5.2 Eos % (Auto) 3.6 Baso % (Auto) 0.9 Neut # (Auto) 5.0 Lymph # (Auto) 2.5 Coos # (Auto) 0.4 Eos # (Auto) 0.3 Baso # (Auto) 0.1 PT 12.1 INR 1.1 APTT 31 Sodium Potassium Chloride Carbon Dioxide Anion Gap BUN Creatinine Est GFR ( Amer) Est GFR (Non-Af Amer) POC Glucose (mg/dL) 119 H Random Glucose Calcium Total Bilirubin AST ALT Alkaline Phosphatase Total Creatine Kinase CK-MB (Mass) Troponin I NT-Pro-B Natriuret Pep Total Protein Albumin Globulin Albumin/Globulin Ratio 04/12/18 04/13/18 04/13/18 20:42 07:46 08:36 WBC RBC Hgb Hct MCV MCH MCHC RDW Plt Count MPV Neut % (Auto) Lymph % (Auto) Coos % (Auto) Eos % (Auto) Baso % (Auto) Neut # (Auto) Lymph # (Auto) Coos # (Auto) Eos # (Auto) Baso # (Auto) PT INR APTT Sodium 143 Potassium 3.8 Chloride 104 Carbon Dioxide 25 Anion Gap 17 BUN 19 H Creatinine 0.9 Est GFR ( Amer) > 60 Est GFR (Non-Af Amer) > 60 POC Glucose (mg/dL) 106 Random Glucose 126 H Calcium 9.3 Total Bilirubin 0.5 AST 21 ALT 24 Alkaline Phosphatase 96 Total Creatine Kinase 66 CK-MB (Mass) 0.59 Troponin I < 0.0120 < 0.0120 NT-Pro-B Natriuret Pep 14.8 Total Protein 8.0 Albumin 4.1 Globulin 3.8 Albumin/Globulin Ratio 1.1 04/13/18 04/13/18 11:44 15:02 WBC RBC Hgb Hct MCV MCH MCHC RDW Plt Count MPV Neut % (Auto) Lymph % (Auto) Coos % (Auto) Eos % (Auto) Baso % (Auto) Neut # (Auto) Lymph # (Auto) Coos # (Auto) Eos # (Auto) Baso # (Auto) PT INR APTT Sodium Potassium Chloride Carbon Dioxide Anion Gap BUN Creatinine Est GFR ( Amer) Est GFR (Non-Af Amer) POC Glucose (mg/dL) 169 H 102 Random Glucose Calcium Total Bilirubin AST ALT Alkaline Phosphatase Total Creatine Kinase CK-MB (Mass) Troponin I NT-Pro-B Natriuret Pep Total Protein Albumin Globulin Albumin/Globulin Ratio - EKG Data EKG Interpreted by: Myself EKG shows normal: Sinus rhythm Rate: Normal Assessment & Plan - Assessment and Plan (Free Text) Assessment: 1. Chest pain is non anginal. The ER keeps admitting this patient. No additional w/u is advised. 2. Pt takes propanolol and night and cardezem in the day. SHe wishes to try a non selective beta monica, and I will substitute atenolol for propanolol. The is for palpitations, (although no recurrence of svt has been noted).
[2018-04-13 16:34] VITALS: RESP 20
--- NOTE | 2018-04-13 17:29 | CARD ---
APPROVED REPORT Date of service: 04/12/2018 EKG Measurement Heart [id number] <Conclusion> Normal sinus rhythm Normal ECG
[2018-04-13] MEDS ORDERED: Morphine 4 MG/ML VIAL IVP PRN (21:10)
--- NOTE | 2018-04-13 21:38 | CP.PCM.HP ---
Past Patient History - Infectious Disease Hx of Infectious Diseases: None - Tetanus Immunizations Tetanus Immunization: Unknown - Past Medical History & Family History Past Medical History?: Yes - Past Social History Smoking Status: Former Smoker - CARDIAC Hx Cardiac Disorders: Yes Hx Atrial Fibrillation: Yes Hx Cardia Arrhythmia: Yes Hx Congestive Heart Failure: Yes Hx Hypercholesterolemia: Yes Hx Hypertension: Yes - PULMONARY Hx Respiratory Disorders: Yes Hx Chronic Obstructive Pulmonary Disease (COPD): Yes - NEUROLOGICAL Hx Neurological Disorder: Yes HX Cerebrovascular Accident: Yes Hx Dizziness: Yes - HEENT Hx HEENT Problems: Yes Other/Comment: wears glasses for reading - RENAL Hx Chronic Kidney Disease: No - ENDOCRINE/METABOLIC Hx Endocrine Disorders: Yes Hx Diabetes Mellitus Type 1: Yes - HEMATOLOGICAL/ONCOLOGICAL Hx Blood Disorders: No - INTEGUMENTARY Hx Dermatological Problems: Yes Hx Eczema: Yes - MUSCULOSKELETAL/RHEUMATOLOGICAL Hx Musculoskeletal Disorders: Yes Hx Arthritis: Yes (hands) Hx Falls: No - GASTROINTESTINAL Hx Gastrointestinal Disorders: Yes Hx Gall Bladder Disease: Yes Hx Gastritis: Yes - GENITOURINARY/GYNECOLOGICAL Hx Genitourinary Disorders: No - PSYCHIATRIC Hx Psychophysiologic Disorder: Yes Hx Anxiety: Yes Hx Depression: Yes Hx Substance Use: No - SURGICAL HISTORY Hx Surgeries: Yes Hx Cholecystectomy: Yes Hx Coronary Stent: Yes (x2) - ANESTHESIA Hx Anesthesia: Yes Hx Anesthesia Reactions: No Meds Allergies/Adverse Reactions: Allergies Allergy/AdvReac Type Severity Reaction Status Date / Time verapamil Allergy Verified 04/12/18 20:31 escitalopram [From Lexapro] AdvReac ANAPHYLAXIS Verified 04/12/18 20:31 Flu vaccine Allergy ANAPHYLAXIS Uncoded 04/12/18 20:31 pnuemonia vaccine Allergy ANAPHYLAXIS Uncoded 04/12/18 20:31 wool Allergy ANAPHYLAXIS Uncoded 04/12/18 20:31 Results - Vital Signs Recent Vital Signs: Last Vital Signs Temp 98.3 F 04/13/18 15:32 Pulse 73 04/13/18 17:45 Resp 20 04/13/18 17:45 BP 118/79 04/13/18 17:45 Pulse Ox 98 04/13/18 15:32 - Labs Result Diagrams: 04/12/18 20:42 04/12/18 20:42 Labs: Laboratory Results - last 24 hr 04/13/18 04/13/18 04/13/18 07:46 08:36 11:44 POC Glucose (mg/dL) 106 169 H Total Creatine Kinase 66 CK-MB (Mass) 0.59 Troponin I < 0.0120 04/13/18 04/13/18 04/13/18 15:02 16:49 21:09 POC Glucose (mg/dL) 102 81 116 H Total Creatine Kinase CK-MB (Mass) Troponin I
[2018-04-14] MEDS: Albuterol-Ipratrop 3 mg / 0.5 (3 ml) UD INH SCH ×4 (01:14→19:49)
[2018-04-14] MEDS: Sucralfate 1 gm/10 ml Oral Susp UD PO SCH ×3 (06:50→19:03)
[2018-04-14] MEDS: (Novolog) Insulin Aspart, Recombinant 100 u/ml 10 ml vial SC SCH ×4 (07:43→21:19)
[2018-04-14 08:14] LABS: CK-MB 0.36 ng/mL (0.0-3.38)
[2018-04-14] MEDS: Pantoprazole 40 mg EC Tab PO SCH (10:13)
[2018-04-14] MEDS: Enoxaparin 40 mg Syringe SC SCH (10:13)
--- NOTE | 2018-04-14 11:06 | CP.PCM.PN ---
Subjective - Date & Time of Evaluation Date of Evaluation: 04/14/18 Time of Evaluation: 12:45 - Subjective Subjective: PGY 3 Note- Dr. Idalmis Zuñiga's service Patient seen and examined in no acute distress. Patient reiterated that she fell sometime last week after tripping on a toy. She states that at the time, she fell onto her left side hurting her back.Per nursing, patient complained of pain yesterday. She did not have complaints on behalf of current shift. Patient states that her chest pain has resolved. Objective - Vital Signs/Intake and Output Vital Signs (last 24 hours): Temp Pulse Resp BP Pulse Ox 98.1 F 74 20 100/68 96 04/14/18 08:05 04/14/18 08:05 04/14/18 08:05 04/14/18 08:05 04/14/18 08:05 - Medications Medications: Current Medications Albuterol/Ipratropium (Duoneb 3 Mg/0.5 Mg (3 Ml) Ud) 3 ml INH RQ6 [facility] Last Admin: 04/14/18 07:45 Dose: Not Given Aspirin (Aspirin) 325 mg PO DAILY [facility] Last Admin: 04/14/18 10:15 Dose: 325 mg Atenolol (Tenormin) 12.5 mg PO [facility] Last Admin: 04/13/18 22:05 Dose: Not Given Clonazepam (Klonopin) 1 mg PO TID [facility] Last Admin: 04/14/18 10:13 Dose: 1 mg Diltiazem HCl (Cardizem) 30 mg PO BID [facility] Last Admin: 04/14/18 10:17 Dose: 30 mg Enoxaparin Sodium (Lovenox) 40 mg SC DAILY [facility] Last Admin: 04/14/18 10:13 Dose: 40 mg Gabapentin (Neurontin) 100 mg PO TID [facility] Last Admin: 04/14/18 10:13 Dose: 100 mg Insulin Aspart (Novolog) 0 unit SC [facility] PRN Reason: Protocol Last Admin: 04/14/18 07:43 Dose: Not Given Metformin HCl (Glucophage) 500 mg PO BIDCC [facility] Last Admin: 04/14/18 08:14 Dose: Not Given Montelukast Sodium (Singulair) 10 mg PO [facility] Last Admin: 04/13/18 22:04 Dose: 10 mg Pantoprazole Sodium (Protonix Ec Tab) 20 mg PO DAILY [facility] Last Admin: 04/14/18 10:13 Dose: 20 mg Fluticasone/Salmeterol (Advair Diskus 250/50) 1 puff IH RQ12 [facility] Last Admin: 04/13/18 08:47 Dose: Not Given Sucralfate (Carafate Oral Susp) 1 gm PO ACTID [facility] Last Admin: 04/14/18 06:50 Dose: 1 gm Tramadol HCl (Ultram) 50 mg PO Q6 PRN PRN Reason: Pain, severe (8-10) Last Admin: 04/13/18 22:04 Dose: 50 mg - Labs Labs: 04/12/18 20:42 04/12/18 20:42 PT 12.1 SECONDS (9.7-12.2) 04/12/18 20:42 INR 1.1 04/12/18 20:42 APTT 31 SECONDS (21-34) 04/12/18 20:42 - Constitutional Appears: Non-toxic, No Acute Distress - Head Exam Head Exam: ATRAUMATIC, NORMAL INSPECTION - Eye Exam Eye Exam: EOMI, Normal appearance Pupil Exam: NORMAL ACCOMODATION - ENT Exam ENT Exam: Mucous Membranes Moist - Neck Exam Neck Exam: Full ROM - Respiratory Exam Respiratory Exam: NORMAL BREATHING PATTERN. absent: Wheezes - Cardiovascular Exam Cardiovascular Exam: REGULAR RHYTHM, +S1, +S2, Murmur. absent: Irregular Rhythm - GI/Abdominal Exam GI & Abdominal Exam: Soft, Normal Bowel Sounds - Extremities Exam Extremities Exam: Full ROM, Normal Capillary Refill - Back Exam Back Exam: NORMAL INSPECTION - Neurological Exam Neurological Exam: Alert, Awake, Oriented x3 - Psychiatric Exam Psychiatric exam: Normal Affect, Normal Mood - Skin Skin Exam: Dry Assessment and Plan - Assessment and Plan (Free Text) Assessment: Chest pain R/O ACS -On Telemetry -No Afib on monitor -Troponins negative x 3 -EKG NSR. No signs of atrial fibrillation noted. -ECHO (07/2017): LV EF WNL ~70%, Normal bi-ventricular function, No pericardial effusion History of Paroxysmal Atrial Fibrillation -Cardiology, Dr. Lynn's group on consult, help appreciated -[place] Cath (10/2016): "essentially normal" -Chest pain is likely not cardiac in nature. -Switch Beta Long to atenolol at this time- Monitor. If improved symptoms, can likely discharge home Fall -F/U XRAY of lumbar spine and Hip/Pelvis -Pain control -F/U PT recommendations History of COPD -Continue Singulair 10mg PO HS -Continue Advair Q12H -Duonebs scheduled GERD -Continue Protonix 40mg IVP daily -Carafate 1gm ACTID -Simethicone 80mg BID prn GI Distress History of Hypertension -On Cardizem as stated above -Monitor vitals Diabetes Mellitus -HgA1c 5.1 per last admission -Accuchecks ACHS and low dose ISS -Hypoglycemia protocol -HOLD Metformin 500mg PO BID -Continue Gabapentin 200mg PO TID Depression/Anxiety -Continue Klonopin 1 tab PO TID, Neurontin 200mg PO TID GI/DVT ppx: Protonix 20 mg PO daily Lovenox 40mg SC daily SCD[facility] Planning and management per Dr. Padilla
--- NOTE | 2018-04-14 13:12 | CP.PCM.PN ---
Subjective - Date & Time of Evaluation Date of Evaluation: 04/14/18 Time of Evaluation: 13:10 - Subjective Subjective: The patient had chest pain and took tramadol with relief. She did not get atenolol last nigh due to BP concerns. Objective - Vital Signs/Intake and Output Vital Signs (last 24 hours): Temp Pulse Resp BP Pulse Ox 98.1 F 74 20 100/68 96 04/14/18 08:05 04/14/18 08:05 04/14/18 08:05 04/14/18 08:05 04/14/18 08:05 - Medications Medications: Current Medications Albuterol/Ipratropium (Duoneb 3 Mg/0.5 Mg (3 Ml) Ud) 3 ml INH RQ6 [facility] Last Admin: 04/14/18 07:45 Dose: Not Given Aspirin (Aspirin) 325 mg PO DAILY [facility] Last Admin: 04/14/18 10:15 Dose: 325 mg Atenolol (Tenormin) 12.5 mg PO HS [facility] Last Admin: 04/14/18 13:05 Dose: 12.5 mg Clonazepam (Klonopin) 1 mg PO TID [facility] Last Admin: 04/14/18 10:13 Dose: 1 mg Diltiazem HCl (Cardizem) 30 mg PO BID [facility] Last Admin: 04/14/18 10:17 Dose: 30 mg Enoxaparin Sodium (Lovenox) 40 mg SC DAILY [facility] Last Admin: 04/14/18 10:13 Dose: 40 mg Gabapentin (Neurontin) 100 mg PO TID [facility] Last Admin: 04/14/18 10:13 Dose: 100 mg Insulin Aspart (Novolog) 0 unit SC [facility] PRN Reason: Protocol Last Admin: 04/14/18 12:08 Dose: Not Given Metformin HCl (Glucophage) 500 mg PO BIDCC [facility] Last Admin: 04/14/18 08:14 Dose: Not Given Montelukast Sodium (Singulair) 10 mg PO [facility] Last Admin: 04/13/18 22:04 Dose: 10 mg Pantoprazole Sodium (Protonix Ec Tab) 20 mg PO DAILY [facility] Last Admin: 04/14/18 10:13 Dose: 20 mg Fluticasone/Salmeterol (Advair Diskus 250/50) 1 puff IH RQ12 [facility] Last Admin: 04/13/18 08:47 Dose: Not Given Sucralfate (Carafate Oral Susp) 1 gm PO ACTID [facility] Last Admin: 04/14/18 12:04 Dose: 1 gm Tramadol HCl (Ultram) 50 mg PO Q6 PRN PRN Reason: Pain, severe (8-10) Last Admin: 04/14/18 12:03 Dose: 50 mg - Labs Labs: 04/12/18 20:42 04/12/18 20:42 PT 12.1 SECONDS (9.7-12.2) 04/12/18 20:42 INR 1.1 04/12/18 20:42 APTT 31 SECONDS (21-34) 04/12/18 20:42 - Constitutional Appears: Well - Head Exam Head Exam: NORMAL INSPECTION - Eye Exam Pupil Exam: PERRL - ENT Exam ENT Exam: Mucous Membranes Moist - Neck Exam Neck Exam: Full ROM - Respiratory Exam Respiratory Exam: NORMAL BREATHING PATTERN - Cardiovascular Exam Cardiovascular Exam: REGULAR RHYTHM - GI/Abdominal Exam GI & Abdominal Exam: Normal Bowel Sounds - Exam External exam: NORMAL EXTERNAL EXAM - Extremities Exam Extremities Exam: Normal Inspection - Back Exam Back Exam: NORMAL INSPECTION - Neurological Exam Neurological Exam: Alert, Awake, Oriented x3 - Psychiatric Exam Psychiatric exam: Flat Affect - Skin Skin Exam: Normal Color Assessment and Plan - Assessment and Plan (Free Text) Assessment: 1. Giv atenolol now to replace pt 's outpatient propanolol 2. Non agnginal chest pain. 3. IF vital sings are stable after atenolol, pt can go home.
--- NOTE | 2018-04-14 17:19 | RAD ---
Date of service: 04/14/2018 PROCEDURE: Radiographs of the Lumbar Spine. HISTORY: rule out fracture- recent fall COMPARISON: No prior. FINDINGS: BONES: No acute compression fractures no retropulsed fragments. Vertebral bodies exhibit normal stature. Vertebral bodies and facets normally aligned. DISC SPACES: Disc space heights relatively maintained. Small anterior osteophytes are present present. The facets are hypertrophic at the L5-S1 through OTHER FINDINGS: None. The L2-L3 levels. IMPRESSION: No acute fractures. Mild multilevel degenerative spondylosis with moderate to fairly significant hypertrophic facets.
--- NOTE | 2018-04-14 17:33 | CP.PCM.PN ---
Subjective - Date & Time of Evaluation Date of Evaluation: 04/14/18 Time of Evaluation: 14:00 - Subjective Subjective: pt clinically same Objective - Vital Signs/Intake and Output Vital Signs (last 24 hours): Temp Pulse Resp BP Pulse Ox 98.1 F 64 20 121/76 98 04/14/18 15:00 04/14/18 15:00 04/14/18 15:00 04/14/18 15:00 04/14/18 15:00 - Medications Medications: Current Medications Albuterol/Ipratropium (Duoneb 3 Mg/0.5 Mg (3 Ml) Ud) 3 ml INH RQ6 [facility] Last Admin: 04/14/18 14:03 Dose: Not Given Aspirin (Aspirin) 325 mg PO DAILY [facility] Last Admin: 04/14/18 10:15 Dose: 325 mg Atenolol (Tenormin) 12.5 mg PO [facility] Last Admin: 04/14/18 13:05 Dose: 12.5 mg Clonazepam (Klonopin) 1 mg PO TID [facility] Last Admin: 04/14/18 13:18 Dose: 1 mg Diltiazem HCl (Cardizem) 30 mg PO BID [facility] Last Admin: 04/14/18 10:17 Dose: 30 mg Enoxaparin Sodium (Lovenox) 40 mg SC DAILY [facility] Last Admin: 04/14/18 10:13 Dose: 40 mg Gabapentin (Neurontin) 100 mg PO TID [facility] Last Admin: 04/14/18 13:18 Dose: 100 mg Insulin Aspart (Novolog) 0 unit SC [facility] PRN Reason: Protocol Last Admin: 04/14/18 12:08 Dose: Not Given Metformin HCl (Glucophage) 500 mg PO BIDCC [facility] Last Admin: 04/14/18 08:14 Dose: Not Given Montelukast Sodium (Singulair) 10 mg PO HS [facility] Last Admin: 04/13/18 22:04 Dose: 10 mg Pantoprazole Sodium (Protonix Ec Tab) 20 mg PO DAILY [facility] Last Admin: 04/14/18 10:13 Dose: 20 mg Fluticasone/Salmeterol (Advair Diskus 250/50) 1 puff IH RQ12 [facility] Last Admin: 04/13/18 08:47 Dose: Not Given Sucralfate (Carafate Oral Susp) 1 gm PO ACTID [facility] Last Admin: 04/14/18 12:04 Dose: 1 gm Tramadol HCl (Ultram) 50 mg PO Q6 PRN PRN Reason: Pain, severe (8-10) Last Admin: 04/14/18 12:03 Dose: 50 mg - Labs Labs: 04/12/18 20:42 04/12/18 20:42 PT 12.1 SECONDS (9.7-12.2) 04/12/18 20:42 INR 1.1 04/12/18 20:42 APTT 31 SECONDS (21-34) 04/12/18 20:42
--- NOTE | 2018-04-14 17:59 | RAD ---
PROCEDURE: Left Hip X-ray Radiographs. HISTORY: Rule out fracture- recent fall COMPARISON: None. FINDINGS: BONES: There is a smooth lucency along the greater trochanter seen on the lateral projection that probably represents confluence of shadow artifact however the possibility of a nondisplaced fracture extending through the greater trochanter region not excluded. Followup CT scan recommended. JOINTS: Mild degenerative osteoarthritis both hip joints SOFT TISSUES: Normal. OTHER FINDINGS: None. IMPRESSION: There is a smooth lucency along the greater trochanter seen on the lateral projection that probably represents confluence of shadow artifact however the possibility of a nondisplaced fracture extending through the greater trochanter region not excluded. Followup CT scan recommended. DJD both hip joints.
[2018-04-15] MEDS: Albuterol-Ipratrop 3 mg / 0.5 (3 ml) UD INH SCH ×4 (01:37→19:37)
[2018-04-15] MEDS: Sucralfate 1 gm/10 ml Oral Susp UD PO SCH ×3 (06:55→17:30)
[2018-04-15 07:36] LABS: BASO # 0.1 K/uL (0.0-0.2); EOS # 0.4 K/uL (0.0-0.7); EOS % 8.2 % (0.0-4.0); HEMOGLOBIN 10.5 g/dL (11.0-16.0); LYMPH # 2.1 K/uL (1.0-4.3); LYMPH % 39.5 % (20.0-40.0); MEAN CELL VOLUME 79.2 fL (81.0-99.0); MEAN CORPUSCULAR HEMOGLOBIN 25.9 pg (27.0-31.0); MEAN CORPUSCULAR HGB CONC 32.7 g/dL (33.0-37.0); MEAN PLATELET VOLUME 8.5 fL (7.2-11.7); MONO # 0.4 K/uL (0.0-0.8); MONO % 7.4 % (0.0-10.0); NEUT # 2.3 K/uL (1.8-7.0); NEUT % 43.9 % (50.0-75.0); NRBC % 0.1 % (0.0-2.0); RBC 4.04 Mil/uL (3.80-5.20); RED CELL DISTRIBUTION WIDTH 16.1 % (11.5-14.5); WHITE BLOOD COUNT 5.3 K/uL (4.8-10.8)
[2018-04-15] MEDS: (Novolog) Insulin Aspart, Recombinant 100 u/ml 10 ml vial SC SCH ×4 (07:51→22:15)
[2018-04-15 08:01] LABS: ALB/GLOB RATIO 1.1 (1.0-2.1); ALBUMIN 3.5 g/dL (3.5-5.0); ALT/SGPT 30 U/L (9-52); AST/SGOT 18 U/L (14-36); BLOOD UREA NITROGEN 16 mg/dL (7-17); CALCIUM 8.9 mg/dl (8.6-10.4); GFR NON-AFRICAN AMERICAN > 60
[2018-04-15] MEDS: Enoxaparin 40 mg Syringe SC SCH (09:43)
[2018-04-15] MEDS ORDERED: Pantoprazole 40 mg EC Tab PO SCH (10:00)
--- NOTE | 2018-04-15 12:03 | CP.PCM.PN ---
Subjective - Date & Time of Evaluation Date of Evaluation: 04/15/18 Time of Evaluation: 08:58 - Subjective Subjective: PGY2 Medicine Note for Dr. Raz Zuñiga Patient seen and examined this morning at bedside. No acute events overnight. Patient reports still having extreme left sided hip pain. Her chest pain has not returned. She is feeling well and has no complaints other than her left hip pain. ROS negative. Objective - Vital Signs/Intake and Output Vital Signs (last 24 hours): Temp Pulse Resp BP Pulse Ox 98.4 F 58 L 20 108/58 L 97 04/15/18 07:15 04/15/18 08:23 04/15/18 07:15 04/15/18 07:15 04/15/18 07:15 - Medications Medications: Current Medications Albuterol/Ipratropium (Duoneb 3 Mg/0.5 Mg (3 Ml) Ud) 3 ml INH RQ6 [facility] Last Admin: 04/15/18 08:09 Dose: Not Given Aspirin (Aspirin) 325 mg PO DAILY [facility] Last Admin: 04/15/18 09:43 Dose: 325 mg Atenolol (Tenormin) 12.5 mg PO HS [facility] Last Admin: 04/14/18 13:05 Dose: 12.5 mg Clonazepam (Klonopin) 1 mg PO TID [facility] Last Admin: 04/15/18 09:44 Dose: 1 mg Diltiazem HCl (Cardizem) 30 mg PO BID [facility] Last Admin: 04/15/18 09:43 Dose: 30 mg Enoxaparin Sodium (Lovenox) 40 mg SC DAILY [facility] Last Admin: 04/15/18 09:43 Dose: 40 mg Gabapentin (Neurontin) 100 mg PO TID [facility] Last Admin: 04/15/18 09:43 Dose: 100 mg Insulin Aspart (Novolog) 0 unit SC [facility] PRN Reason: Protocol Last Admin: 04/15/18 07:51 Dose: Not Given Metformin HCl (Glucophage) 500 mg PO BIDCC [facility] Last Admin: 04/15/18 08:19 Dose: Not Given Montelukast Sodium (Singulair) 10 mg PO HS [facility] Last Admin: 04/14/18 21:17 Dose: 10 mg Pantoprazole Sodium (Protonix Ec Tab) 40 mg PO DAILY [facility] Fluticasone/Salmeterol (Advair Diskus 250/50) 1 puff IH RQ12 [facility] Last Admin: 04/13/18 08:47 Dose: Not Given Sucralfate (Carafate Oral Susp) 1 gm PO ACTID [facility] Last Admin: 04/15/18 06:55 Dose: 1 gm Tramadol HCl (Ultram) 50 mg PO Q6 PRN PRN Reason: Pain, severe (8-10) Last Admin: 04/14/18 21:17 Dose: 50 mg - Labs Labs: 04/15/18 07:25 04/15/18 07:25 PT 12.1 SECONDS (9.7-12.2) 04/12/18 20:42 INR 1.1 04/12/18 20:42 APTT 31 SECONDS (21-34) 04/12/18 20:42 Assessment and Plan - Assessment and Plan (Free Text) Plan: - Constitutional Appears: Non-toxic, No Acute Distress - Head Exam Head Exam: ATRAUMATIC, NORMAL INSPECTION - Eye Exam Eye Exam: EOMI, Normal appearance Pupil Exam: NORMAL ACCOMODATION - ENT Exam ENT Exam: Mucous Membranes Moist - Neck Exam Neck Exam: Full ROM - Respiratory Exam Respiratory Exam: NORMAL BREATHING PATTERN. absent: Wheezes - Cardiovascular Exam Cardiovascular Exam: REGULAR RHYTHM, +S1, +S2, Murmur. absent: Irregular Rhythm - GI/Abdominal Exam GI & Abdominal Exam: Soft, Normal Bowel Sounds - Extremities Exam Extremities Exam: Full ROM, Normal Capillary Refill - Back Exam Back Exam: NORMAL INSPECTION - Neurological Exam Neurological Exam: Alert, Awake, Oriented x3 - Psychiatric Exam Psychiatric exam: Normal Affect, Normal Mood - Skin Skin Exam: Dry Assessment and Plan - Assessment and Plan (Free Text) Assessment: Chest pain R/O ACS -On Telemetry -No Afib on monitor -Troponins negative x 3 -EKG NSR. No signs of atrial fibrillation noted. -ECHO (07/2017): LV EF WNL ~70%, Normal bi-ventricular function, No pericardial effusion History of Paroxysmal Atrial Fibrillation -Cardiology, Dr. Lynn's group on consult, help appreciated -[place] Cath (10/2016): "essentially normal" -Chest pain is likely not cardiac in nature. -Switch Beta Long to atenolol at this time- Monitor. If improved symptoms, can likely discharge home Fall -XRAY of lumbar spine: * No acute fractures. Mild multilevel degenerative spondylosis with moderate to fairly significant hypertrophic facets. -XRAY L Hip/Pelvis: * There is a smooth lucency along the greater trochanter seen on the lateral projection that probably represents confluence of shadow artifact however the possibility of a nondisplaced fracture extending through the greater trochanter region not excluded. Followup CT scan recommended. * DJD both hip joints. -Left Hip CT: * No left hip fracture. * Osseous hypertrophic/productive degenerative arthrosis as above. * Large probable fibroid uterus -Pain control -F/U PT recommendations History of COPD -Continue Singulair 10mg PO HS -Continue Advair Q12H -Duonebs scheduled GERD -Continue Protonix 40mg IVP daily -Carafate 1gm ACTID -Simethicone 80mg BID prn GI Distress History of Hypertension -On Cardizem as stated above -Monitor vitals Diabetes Mellitus -HgA1c 5.1 per last admission -Accuchecks ACHS and low dose ISS -Hypoglycemia protocol -HOLD Metformin 500mg PO BID -Continue Gabapentin 200mg PO TID Depression/Anxiety -Continue Klonopin 1 tab PO TID, Neurontin 200mg PO TID GI/DVT ppx: Protonix 20 mg PO daily Lovenox 40mg SC daily SCD[facility] DISPO: PT is recommending TCU. Patient has stated that she would prefer to be discharged directly home. Will need to discuss discharge planning with patient again. Planning and management per Dr. Raz Zuñiga
[2018-04-15] MEDS: Pantoprazole 40 mg EC Tab PO SCH (12:22)
--- NOTE | 2018-04-15 14:38 | CT ---
Date of service: 04/15/2018 PROCEDURE: CT of the left Hip. HISTORY: r/o fracture COMPARISON: 04/14/2018 left hip pelvis x-ray TECHNIQUE: Contiguous axial images of the left hip were obtained. Coronal and sagittal reformats were generated. This CT exam was performed using one or more of the following dose reduction techniques: Automated exposure control, adjustment of the mA and/or kV according to patient size, and/or use of iterative reconstruction technique. FINDINGS: BONES: Exuberant osseous productive changes project over the superolateral acetabulum and left greater trochanter. These left greater trochanteric findings are believe to explain the radiographic appearance No fracture or focal lesion. Femoral head maintains normal contour. RIGHT HIP JOINT: degenerative changes. No dislocation. SOFT TISSUES: Large probable fibroid uterus. IMPRESSION: No left hip fracture. Osseous hypertrophic/productive degenerative arthrosis as above. Large probable fibroid uterus.
--- NOTE | 2018-04-15 18:27 | CP.PCM.PN ---
Subjective - Date & Time of Evaluation Date of Evaluation: 04/15/18 Objective - Vital Signs/Intake and Output Vital Signs (last 24 hours): Temp Pulse Resp BP Pulse Ox 98.4 F 76 20 125/80 99 04/15/18 16:00 04/15/18 16:00 04/15/18 16:00 04/15/18 16:00 04/15/18 16:00 - Medications Medications: Current Medications Albuterol/Ipratropium (Duoneb 3 Mg/0.5 Mg (3 Ml) Ud) 3 ml INH RQ6 [facility] Last Admin: 04/15/18 13:12 Dose: 3 ml Aspirin (Aspirin) 325 mg PO DAILY [facility] Last Admin: 04/15/18 09:43 Dose: 325 mg Atenolol (Tenormin) 12.5 mg PO [facility] Last Admin: 04/14/18 13:05 Dose: 12.5 mg Clonazepam (Klonopin) 1 mg PO TID [facility] Last Admin: 04/15/18 17:58 Dose: 1 mg Diltiazem HCl (Cardizem) 30 mg PO BID [facility] Last Admin: 04/15/18 17:57 Dose: 30 mg Enoxaparin Sodium (Lovenox) 40 mg SC DAILY [facility] Last Admin: 04/15/18 09:43 Dose: 40 mg Gabapentin (Neurontin) 100 mg PO TID [facility] Last Admin: 04/15/18 17:57 Dose: 100 mg Insulin Aspart (Novolog) 0 unit SC [facility] PRN Reason: Protocol Last Admin: 04/15/18 17:11 Dose: Not Given Metformin HCl (Glucophage) 500 mg PO BIDCC [facility] Last Admin: 04/15/18 17:11 Dose: Not Given Montelukast Sodium (Singulair) 10 mg PO HS [facility] Last Admin: 04/14/18 21:17 Dose: 10 mg Pantoprazole Sodium (Protonix Ec Tab) 40 mg PO DAILY [facility] Last Admin: 04/15/18 12:22 Dose: Not Given Fluticasone/Salmeterol (Advair Diskus 250/50) 1 puff IH RQ12 [facility] Last Admin: 04/13/18 08:47 Dose: Not Given Sucralfate (Carafate Oral Susp) 1 gm PO ACTID [facility] Last Admin: 04/15/18 17:30 Dose: 1 gm Tramadol HCl (Ultram) 50 mg PO Q6 PRN PRN Reason: Pain, severe (8-10) Last Admin: 04/14/18 21:17 Dose: 50 mg - Labs Labs: 04/15/18 07:25 04/15/18 07:25 PT 12.1 SECONDS (9.7-12.2) 04/12/18 20:42 INR 1.1 04/12/18 20:42 APTT 31 SECONDS (21-34) 04/12/18 20:42
[2018-04-16] MEDS: Albuterol-Ipratrop 3 mg / 0.5 (3 ml) UD INH SCH ×4 (02:56→19:36)
[2018-04-16] MEDS: Sucralfate 1 gm/10 ml Oral Susp UD PO SCH ×3 (06:56→17:30)
[2018-04-16] MEDS: (Novolog) Insulin Aspart, Recombinant 100 u/ml 10 ml vial SC SCH ×4 (07:18→22:20)
[2018-04-16 08:18] LABS: BASO # 0.1 K/uL (0.0-0.2); EOS # 0.5 K/uL (0.0-0.7); EOS % 7.7 % (0.0-4.0); HEMOGLOBIN 10.6 g/dL (11.0-16.0); LYMPH % 34.5 % (20.0-40.0); MEAN CELL VOLUME 78.9 fL (81.0-99.0); MEAN CORPUSCULAR HEMOGLOBIN 26.2 pg (27.0-31.0); MEAN CORPUSCULAR HGB CONC 33.2 g/dL (33.0-37.0); MEAN PLATELET VOLUME 8.8 fL (7.2-11.7); MONO # 0.5 K/uL (0.0-0.8); MONO % 8.6 % (0.0-10.0); NEUT # 2.8 K/uL (1.8-7.0); NEUT % 48.2 % (50.0-75.0); NRBC % 0.1 % (0.0-2.0); RBC 4.04 Mil/uL (3.80-5.20); RED CELL DISTRIBUTION WIDTH 16.2 % (11.5-14.5); WHITE BLOOD COUNT 5.9 K/uL (4.8-10.8)
[2018-04-16 08:45] LABS: ALB/GLOB RATIO 1.2 (1.0-2.1); ALBUMIN 3.6 g/dL (3.5-5.0); ALT/SGPT 26 U/L (9-52); AST/SGOT 14 U/L (14-36); BLOOD UREA NITROGEN 14 mg/dL (7-17); CALCIUM 8.9 mg/dl (8.6-10.4); GFR NON-AFRICAN AMERICAN > 60
[2018-04-16] MEDS: Pantoprazole 40 mg EC Tab PO SCH (09:05)
[2018-04-16] MEDS: Enoxaparin 40 mg Syringe SC SCH (09:05)
--- NOTE | 2018-04-16 11:21 | CP.PCM.PN ---
Subjective - Date & Time of Evaluation Date of Evaluation: 04/16/18 Time of Evaluation: 12:33 - Subjective Subjective: PGY 3 Md Note- Dr. Idalmis Zuñiga's service Patient seen and examined in no apparent acute distress. Patient states that Atenolol resulted in adverse side effects. She is unable to describe the feeling - but states that it made her quite uncomfortable. Patient reiterated having hip pain as well. She states that she is not sure why she keeps having symptoms which lead her to keep coming back to the hospital. Objective - Vital Signs/Intake and Output Vital Signs (last 24 hours): Temp Pulse Resp BP Pulse Ox 98.4 F 67 20 121/78 97 04/16/18 07:30 04/16/18 07:30 04/16/18 07:30 04/16/18 07:30 04/16/18 07:30 - Medications Medications: Current Medications Albuterol/Ipratropium (Duoneb 3 Mg/0.5 Mg (3 Ml) Ud) 3 ml INH RQ6 [facility] Last Admin: 04/16/18 08:31 Dose: Not Given Aspirin (Aspirin) 325 mg PO DAILY [facility] Last Admin: 04/16/18 09:05 Dose: 325 mg Atenolol (Tenormin) 12.5 mg PO [facility] Last Admin: 04/15/18 22:15 Dose: Not Given Clonazepam (Klonopin) 1 mg PO TID [facility] Last Admin: 04/16/18 09:05 Dose: 1 mg Diltiazem HCl (Cardizem) 30 mg PO BID [facility] Last Admin: 04/16/18 09:07 Dose: 30 mg Enoxaparin Sodium (Lovenox) 40 mg SC DAILY [facility] Last Admin: 04/16/18 09:05 Dose: 40 mg Gabapentin (Neurontin) 100 mg PO TID [facility] Last Admin: 04/16/18 09:05 Dose: 100 mg Insulin Aspart (Novolog) 0 unit SC [facility] PRN Reason: Protocol Last Admin: 04/16/18 07:18 Dose: Not Given Metformin HCl (Glucophage) 500 mg PO BIDCC [facility] Last Admin: 04/16/18 07:18 Dose: Not Given Montelukast Sodium (Singulair) 10 mg PO [facility] Last Admin: 04/15/18 22:14 Dose: 10 mg Pantoprazole Sodium (Protonix Ec Tab) 40 mg PO DAILY [facility] Last Admin: 04/16/18 09:05 Dose: 40 mg Fluticasone/Salmeterol (Advair Diskus 250/50) 1 puff IH RQ12 [facility] Last Admin: 04/13/18 08:47 Dose: Not Given Sucralfate (Carafate Oral Susp) 1 gm PO ACTID [facility] Last Admin: 04/16/18 06:56 Dose: 1 gm Tramadol HCl (Ultram) 50 mg PO Q6 PRN PRN Reason: Pain, severe (8-10) Last Admin: 04/15/18 22:24 Dose: 50 mg - Labs Labs: 04/16/18 08:06 04/16/18 08:06 PT 12.1 SECONDS (9.7-12.2) 04/12/18 20:42 INR 1.1 04/12/18 20:42 APTT 31 SECONDS (21-34) 04/12/18 20:42 - Constitutional Appears: Non-toxic, No Acute Distress - Head Exam Head Exam: ATRAUMATIC, NORMAL INSPECTION, NORMOCEPHALIC - Eye Exam Eye Exam: EOMI, Normal appearance Pupil Exam: PERRL - ENT Exam ENT Exam: Mucous Membranes Moist - Neck Exam Neck Exam: Full ROM - Respiratory Exam Respiratory Exam: Clear to Ausculation Bilateral - Cardiovascular Exam Cardiovascular Exam: REGULAR RHYTHM, +S1, +S2 - GI/Abdominal Exam GI & Abdominal Exam: Soft, Normal Bowel Sounds - Extremities Exam Extremities Exam: Full ROM, Normal Capillary Refill - Back Exam Back Exam: Full ROM, tenderness - Neurological Exam Neurological Exam: Alert, Awake - Psychiatric Exam Psychiatric exam: Anxious - Skin Skin Exam: Dry, Intact, Normal Color Assessment and Plan - Assessment and Plan (Free Text) Assessment: Chest pain R/O ACS -On Telemetry -No Afib on monitor -Troponins negative x 3 -EKG NSR. No signs of atrial fibrillation noted. -ECHO (07/2017): LV EF WNL ~70%, Normal bi-ventricular function, No pericardial effusion History of Paroxysmal Atrial Fibrillation -Cardiology, Dr. Lynn's group on consult, help appreciated -[place] [facility] (10/2016): "essentially normal" -Chest pain is likely not cardiac in nature. -Atenolol rsulted in adverse effects and will thus be held. Will touch base with Cardiology for f/u recs Fall -XRAY of lumbar spine: * No acute fractures. Mild multilevel degenerative spondylosis with moderate to fairly significant hypertrophic facets. -XRAY L Hip/Pelvis: * There is a smooth lucency along the greater trochanter seen on the lateral projection that probably represents confluence of shadow artifact however the possibility of a nondisplaced fracture extending through the greater trochanter region not excluded. Followup CT scan recommended. * DJD both hip joints. -Left Hip CT: * No left hip fracture. * Osseous hypertrophic/productive degenerative arthrosis as above. * Large probable fibroid uterus -Pain control -PT recommendations History of COPD -Continue Singulair 10mg PO HS -Continue Advair Q12H -Duonebs scheduled GERD -Continue Protonix 40mg IVP daily -Carafate 1gm ACTID -Simethicone 80mg BID prn GI Distress History of Hypertension -On Cardizem as stated above -Monitor vitals Diabetes Mellitus -HgA1c 5.1 per last admission -Accuchecks ACHS and low dose ISS -Hypoglycemia protocol -HOLD Metformin 500mg PO BID -Continue Gabapentin 200mg PO TID Depression/Anxiety -Continue Klonopin 1 tab PO TID, Neurontin 200mg PO TID GI/DVT ppx: Protonix 20 mg PO daily Lovenox 40mg SC daily SCD[facility] DISPO: PT recommended TCU. Patient has stated that she would prefer to be discharged directly home. Will need to discuss discharge planning with patient again. Planning and management per Dr. Raz Zuñiga
--- NOTE | 2018-04-16 20:07 | CP.PCM.PN ---
Subjective - Date & Time of Evaluation Date of Evaluation: 04/16/18 Time of Evaluation: 09:15 - Subjective Subjective: clinically same Objective - Vital Signs/Intake and Output Vital Signs (last 24 hours): Temp Pulse Resp BP Pulse Ox 98.2 F 71 20 123/77 99 04/16/18 15:00 04/16/18 15:00 04/16/18 15:00 04/16/18 15:00 04/16/18 15:00 - Medications Medications: Current Medications Albuterol/Ipratropium (Duoneb 3 Mg/0.5 Mg (3 Ml) Ud) 3 ml INH RQ6 [facility] Last Admin: 04/16/18 19:36 Dose: Not Given Aspirin (Aspirin) 325 mg PO DAILY [facility] Last Admin: 04/16/18 09:05 Dose: 325 mg Atenolol (Tenormin) 12.5 mg PO [facility] Last Admin: 04/15/18 22:15 Dose: Not Given Clonazepam (Klonopin) 1 mg PO TID [facility] Last Admin: 04/16/18 18:19 Dose: 1 mg Diltiazem HCl (Cardizem) 30 mg PO BID [facility] Last Admin: 04/16/18 18:19 Dose: 30 mg Enoxaparin Sodium (Lovenox) 40 mg SC DAILY [facility] Last Admin: 04/16/18 09:05 Dose: 40 mg Gabapentin (Neurontin) 100 mg PO TID [facility] Last Admin: 04/16/18 18:19 Dose: 100 mg Insulin Aspart (Novolog) 0 unit SC [facility] PRN Reason: Protocol Last Admin: 04/16/18 17:14 Dose: Not Given Metformin HCl (Glucophage) 500 mg PO BIDCC [facility] Last Admin: 04/16/18 17:14 Dose: Not Given Montelukast Sodium (Singulair) 10 mg PO HS [facility] Last Admin: 04/15/18 22:14 Dose: 10 mg Pantoprazole Sodium (Protonix Ec Tab) 40 mg PO DAILY [facility] Last Admin: 04/16/18 09:05 Dose: 40 mg Fluticasone/Salmeterol (Advair Diskus 250/50) 1 puff IH RQ12 [facility] Last Admin: 04/13/18 08:47 Dose: Not Given Sucralfate (Carafate Oral Susp) 1 gm PO ACTID [facility] Last Admin: 04/16/18 17:30 Dose: 1 gm Tramadol HCl (Ultram) 50 mg PO Q6 PRN PRN Reason: Pain, severe (8-10) Last Admin: 04/15/18 22:24 Dose: 50 mg - Labs Labs: 04/16/18 08:06 04/16/18 08:06 PT 12.1 SECONDS (9.7-12.2) 04/12/18 20:42 INR 1.1 04/12/18 20:42 APTT 31 SECONDS (21-34) 04/12/18 20:42 - Constitutional Appears: Well - Head Exam Head Exam: ATRAUMATIC, NORMAL INSPECTION, NORMOCEPHALIC - Eye Exam Eye Exam: EOMI, Normal appearance, PERRL Pupil Exam: NORMAL ACCOMODATION, PERRL - ENT Exam ENT Exam: Mucous Membranes Moist, Normal Exam - Neck Exam Neck Exam: Full ROM, Normal Inspection. absent: Lymphadenopathy - Respiratory Exam Respiratory Exam: Decreased Breath Sounds - Cardiovascular Exam Cardiovascular Exam: REGULAR RHYTHM, +S1, +S2 - GI/Abdominal Exam GI & Abdominal Exam: Soft, Diminished Bowel Sounds - Rectal Exam Rectal Exam: Deferred
[2018-04-17] MEDS: Albuterol-Ipratrop 3 mg / 0.5 (3 ml) UD INH SCH ×3 (01:16→13:41)
[2018-04-17] MEDS: Sucralfate 1 gm/10 ml Oral Susp UD PO SCH ×2 (06:38→12:14)
[2018-04-17] MEDS: (Novolog) Insulin Aspart, Recombinant 100 u/ml 10 ml vial SC SCH ×2 (08:02→11:47)
[2018-04-17 08:24] VITALS: BP 125/83; TEMP 97.7; O2SAT 97
[2018-04-17 09:03] VITALS: PULSE 71
[2018-04-17] MEDS: Pantoprazole 40 mg EC Tab PO SCH (09:46)
[2018-04-17] MEDS: Enoxaparin 40 mg Syringe SC SCH (09:46)
--- NOTE | 2018-04-17 15:44 | CP.PCM.PN ---
Subjective - Date & Time of Evaluation Date of Evaluation: 04/17/18 Time of Evaluation: 08:15 - Subjective Subjective: clinically same Objective - Vital Signs/Intake and Output Vital Signs (last 24 hours): Temp Pulse Resp BP Pulse Ox 97.7 F 71 20 125/83 97 04/17/18 07:15 04/17/18 08:00 04/17/18 07:15 04/17/18 07:15 04/17/18 07:15 Intake and Output: 04/17/18 04/17/18 06:59 18:59 Intake Total 500 Balance 500 - Medications Medications: Current Medications Albuterol/Ipratropium (Duoneb 3 Mg/0.5 Mg (3 Ml) Ud) 3 ml INH RQ6 [facility] Last Admin: 04/17/18 13:41 Dose: Not Given Aspirin (Aspirin) 325 mg PO DAILY [facility] Last Admin: 04/17/18 09:51 Dose: 325 mg Atenolol (Tenormin) 12.5 mg PO HS [facility] Last Admin: 04/16/18 21:37 Dose: Not Given Clonazepam (Klonopin) 1 mg PO TID [facility] Last Admin: 04/17/18 13:43 Dose: 1 mg Diltiazem HCl (Cardizem) 30 mg PO BID [facility] Last Admin: 04/17/18 09:51 Dose: 30 mg Enoxaparin Sodium (Lovenox) 40 mg SC DAILY [facility] Last Admin: 04/17/18 09:46 Dose: 40 mg Gabapentin (Neurontin) 100 mg PO TID [facility] Last Admin: 04/17/18 13:43 Dose: 100 mg Insulin Aspart (Novolog) 0 unit SC [facility] PRN Reason: Protocol Last Admin: 04/17/18 11:47 Dose: Not Given Metformin HCl (Glucophage) 500 mg PO BIDCC [facility] Last Admin: 04/17/18 08:02 Dose: Not Given Montelukast Sodium (Singulair) 10 mg PO HS [facility] Last Admin: 04/16/18 21:35 Dose: 10 mg Pantoprazole Sodium (Protonix Ec Tab) 40 mg PO DAILY [facility] Last Admin: 04/17/18 09:46 Dose: 40 mg Fluticasone/Salmeterol (Advair Diskus 250/50) 1 puff IH RQ12 [facility] Last Admin: 04/13/18 08:47 Dose: Not Given Sucralfate (Carafate Oral Susp) 1 gm PO ACTID [facility] Last Admin: 04/17/18 12:14 Dose: 1 gm Tramadol HCl (Ultram) 50 mg PO Q6 PRN PRN Reason: Pain, severe (8-10) Last Admin: 04/16/18 20:18 Dose: 50 mg - Labs Labs: 04/16/18 08:06 04/16/18 08:06 PT 12.1 SECONDS (9.7-12.2) 04/12/18 20:42 INR 1.1 04/12/18 20:42 APTT 31 SECONDS (21-34) 04/12/18 20:42 - Constitutional Appears: Well - Head Exam Head Exam: ATRAUMATIC, NORMAL INSPECTION, NORMOCEPHALIC - Eye Exam Eye Exam: EOMI, Normal appearance, PERRL Pupil Exam: NORMAL ACCOMODATION, PERRL - ENT Exam ENT Exam: Mucous Membranes Moist, Normal Exam - Neck Exam Neck Exam: Full ROM, Normal Inspection. absent: Lymphadenopathy - Respiratory Exam Respiratory Exam: Decreased Breath Sounds - Cardiovascular Exam Cardiovascular Exam: REGULAR RHYTHM, +S1, +S2 - GI/Abdominal Exam GI & Abdominal Exam: Soft, Diminished Bowel Sounds - Rectal Exam Rectal Exam: Deferred
--- NOTE | 2018-04-17 16:58 | CP.PCM.PN ---
Subjective - Date & Time of Evaluation Date of Evaluation: 04/17/18 Time of Evaluation: 11:00 - Subjective Subjective: ALERT, oriented, denies sob or chest pains, NAD. Objective - Vital Signs/Intake and Output Vital Signs (last 24 hours): Temp Pulse Resp BP Pulse Ox 97.7 F 71 20 125/83 97 04/17/18 07:15 04/17/18 08:00 04/17/18 07:15 04/17/18 07:15 04/17/18 07:15 Intake and Output: 04/17/18 04/17/18 06:59 18:59 Intake Total 500 Balance 500 - Labs Labs: 04/16/18 08:06 04/16/18 08:06 PT 12.1 SECONDS (9.7-12.2) 04/12/18 20:42 INR 1.1 04/12/18 20:42 APTT 31 SECONDS (21-34) 04/12/18 20:42 Assessment and Plan - Assessment and Plan (Free Text) Assessment: 57 YR OLD FEMALE admitted with chest pain, seen and examined. Alert and oriented x3, denies sob or chest pains, cleared by the cardiologyst. Discussed with DR Raz Zuñiga, plan to discharge home today.
== END 2018-04-17 16:00 | disposition home or self-care (01) | DRG 313 ==
LOC: C.ER 20:17 → C.9E 22:05 → C.6T 04-13 09:38
PROVIDERS: ADMIT Internal Medicine Nephrology; ATTEND Internal Medicine Nephrology
DX: R07.89 Other chest pain (principal); I11.0 Hypertensive heart disease with heart failure; I48.0 Paroxysmal atrial fibrillation; I25.10 Atherosclerotic heart disease of native coronary artery without angina pectoris; I50.9 Heart failure, unspecified; J44.9 Chronic obstructive pulmonary disease, unspecified; E10.9 Type 1 diabetes mellitus without complications; K21.9 Gastro-esophageal reflux disease without esophagitis; M19.041 Primary osteoarthritis, right hand; M19.042 Primary osteoarthritis, left hand; M47.9 Spondylosis, unspecified; F32.9 Major depressive disorder, single episode, unspecified; F41.9 Anxiety disorder, unspecified; E78.00 Pure hypercholesterolemia, unspecified; D25.9 Leiomyoma of uterus, unspecified; W06.XXXA Fall from bed, initial encounter; Z79.4 Long term (current) use of insulin; Z86.73 Personal history of transient ischemic attack (TIA), and cerebral infarction without residual deficits; Z87.891 Personal history of nicotine dependence; Z90.49 Acquired absence of other specified parts of digestive tract; Z95.5 Presence of coronary angioplasty implant and graft

== ENCOUNTER 2018-05-12 16:49 | Emergency (ER) | payer MEDICARE, MEDICAID ==
[2018-05-12 16:49] VITALS: BMI 40.5
[2018-05-12 17:01] VITALS: O2SAT 96
[2018-05-12] MEDS ORDERED: Sodium Chloride 0.9% 1,000 ML IV ONE (17:19)
[2018-05-12] MEDS ORDERED: Albuterol-Ipratrop 3 mg / 0.5 (3 ml) UD IH STA (17:21)
--- NOTE | 2018-05-12 17:43 | C.PDOC ---
History Of Present Illness <Basilia Bill - Last Filed: 05/12/18 19:15> <Glory Johnson - Last Filed: 05/12/18 19:28> PGY-[address] Johnson. 57 year old female with PMHx of DM, COPD, Afib, GERD, and HTN presents to ED complaining of fever (Tmax 102), cough with yellow sputum, nasal congestion, generalized weakness, lightheadedness that began 2 days ago. Associated symptoms include multiple episodes of vomiting per day (non-bloody) and diffuse abdominal pain described as soreness. She was able to tolerate water and crackers today. Patient also complains of palpitations and chest burning to entire anterior chest. Treatment with home oxygen and nebulizer treatment provided minimal improvement of symptoms. (Basilia Bill) <Basilia Bill - Last Filed: 05/12/18 19:15> <Glory Johnson - Last Filed: 05/12/18 19:28> Time Seen by Provider: 05/12/18 16:53 Chief Complaint (Nursing): Abdominal Pain Past Medical History - Medical History PMH: Anxiety, Arthritis, Atrial Fibrillation, CAD, Cardia Arrhythmia, CHF, COPD , Depression, Diabetes (hypoglycemia), Gastritis, Gall Bladder Disease, HTN, Hypercholesterolemia Denies: Chronic Kidney Disease Surgical History: Cholecystectomy, Coronary Stent (x2) Family History: States: Unknown Family Hx - Social History Hx Tobacco Use: Yes (QUIT) Hx Alcohol Use: No Hx Substance Use: No - Immunization History Hx Tetanus Toxoid Vaccination: No Hx Influenza Vaccination: No Hx Pneumococcal Vaccination: No <Basilia Bill - Last Filed: 05/12/18 19:15> Vital Signs: Last Vital Signs Temp 98.3 F 05/12/18 19:08 Pulse 87 05/12/18 19:08 Resp 18 05/12/18 19:08 BP 117/72 05/12/18 19:08 Pulse Ox 96 05/12/18 19:16 - [facility] Procedures EXCISION OF STOMACH, ENDO, DIAGN (11/25/17) Review Of Systems Constitutional: Positive for: Fever, Chills, Weakness. Negative for: Sweats Cardiovascular: Positive for: Chest Pain, Palpitations Respiratory: Positive for: Cough, Shortness of Breath Gastrointestinal: Positive for: Nausea, Vomiting, Abdominal Pain. Negative for : Diarrhea Genitourinary: Negative for: Dysuria, Frequency Neurological: Positive for: Weakness, Dizziness. Negative for: Numbness <BillJoslynBasilia P - Last Filed: 05/12/18 19:15> Physical Exam - Physical Exam Appears: No Acute Distress Skin: Normal Color, Warm, Dry Head: Atraumatic, Normacephalic Eye(s): bilateral: Normal Inspection, PERRL, EOMI Nose: Other (congestion) Oral Mucosa: Dry Throat: Normal Neck: Normal ROM Chest: Symmetrical Cardiovascular: Rhythm Regular, No Rhythm Irregular, No Edema, No Friction Rub, No Murmur Respiratory: Wheezing <Bill,Basilia P - Last Filed: 05/12/18 19:15> ED Course And Treatment - Laboratory Results Result Diagrams: 05/12/18 18:39 05/12/18 18:39 Lab Interpretation: Normal ECG: Viewed By Me ECG Rhythm: Sinus Rhythm ECG Interpretation: Normal Interpretation Of ECG: Rate: 94. MI interval: 164ms. QRS: 86ms. QT/QTc: 342/ 427ms O2 Sat by Pulse Oximetry: 96 Pulse Ox Interpretation: Normal - Radiology CXR: Viewed By Me, Read By Radiologist CXR Interpretation: Yes: No Acute Disease <BillJoslynBasilia P - Last Filed: 05/12/18 19:15> - Laboratory Results Result Diagrams: 05/12/18 18:39 05/12/18 18:39 Reevaluation Time: 19:26 Reassessment Condition: Improved - Physician Consult Information Physician Contacted: Bladimir Zuñiga Outcome Of Conversation: He will follow up in the office this week. <Glory Johnson - Last Filed: 05/12/18 19:28> Medical Decision Making <Bill,Basilia P - Last Filed: 05/12/18 19:15> <Glory Johnson - Last Filed: 05/12/18 19:28> Medical Decision Making: Plan: CBC, CMP lipase UA Troponin D-dimer influenza AB Dunegin, eyad, IVF (Bill,Basilia P) Disposition <Bill,Basilia P - Last Filed: 05/12/18 19:15> Counseled Patient/Family Regarding: Studies Performed, Diagnosis, Need For Followup - Disposition Disposition Time: 19:27 <Glory Johnson - Last Filed: 05/12/18 19:28> - Disposition Referrals: Bladimir Zuñiga MD [Staff Provider] - Disposition: HOME/ ROUTINE Condition: IMPROVED Additional Instructions: Encourage plenty of fluids and rest. See Dr Zuñiga later this week if symptoms persist Instructions: Viral Upper Respiratory Infection, Adult (DC) Forms: [employer] ([place]ovan) - Clinical Impression Clinical Impression: URI (upper respiratory infection)
--- NOTE | 2018-05-12 17:51 | RAD ---
HISTORY: SOB COMPARISON: Chest x-ray performed 04/12/18 TECHNIQUE: Chest PA and lateral FINDINGS: Examination limited by habitus. Patient's chin obscures evaluation of the lung apices. LUNGS: No focal consolidation. Please note that chest x-ray has limited sensitivity for the detection of pulmonary masses. PLEURA: No significant pleural effusion identified. No definite pneumothorax . CARDIOVASCULAR: Heart size appears within normal limits. OSSEOUS STRUCTURES: No acute osseous abnormality is detected. VISUALIZED UPPER ABDOMEN: Unremarkable. OTHER FINDINGS: None. IMPRESSION: No focal consolidation, significant pleural effusion, or definite pneumothorax identified.
[2018-05-12 18:11] LABS: SQUAMOUS EPITHIAL 16 /hpf (0-5); URINE BACTERIA OCC (<OCC); URINE BILIRUBIN NEGATIVE (NEGATIVE); URINE BLOOD NEGATIVE (NEGATIVE); URINE CLARITY Hazy (Clear); URINE COLOR Yellow (YELLOW); URINE GLUCOSE (UA) NORMAL (Normal); URINE LEUKOCYTE ESTERASE NEG Leu/uL (Negative); URINE PROTEIN NEGATIVE (NEGATIVE); URINE UROBILINOGEN NORMAL mg/dL (0.2-1.0)
[2018-05-12] MEDS ORDERED: Albuterol-Ipratrop 3 mg / 0.5 (3 ml) UD ONE (18:24)
[2018-05-12 18:42] LABS: BASO # 0.1 K/uL (0.0-0.2); BASO % 1.2 % (0.0-2.0); EOS # 0.4 K/uL (0.0-0.7); EOS % 4.8 % (0.0-4.0); HEMOGLOBIN 11.5 g/dL (11.0-16.0); LYMPH # 1.9 K/uL (1.0-4.3); LYMPH % 22.1 % (20.0-40.0); MEAN CELL VOLUME 77.4 fL (81.0-99.0); MEAN CORPUSCULAR HEMOGLOBIN 25.9 pg (27.0-31.0); MEAN CORPUSCULAR HGB CONC 33.5 g/dL (33.0-37.0); MEAN PLATELET VOLUME 8.7 fL (7.2-11.7); MONO # 0.7 K/uL (0.0-0.8); MONO % 7.6 % (0.0-10.0); NEUT # 5.5 K/uL (1.8-7.0); NEUT % 64.3 % (50.0-75.0); RBC 4.43 Mil/uL (3.80-5.20); RED CELL DISTRIBUTION WIDTH 15.8 % (11.5-14.5); WHITE BLOOD COUNT 8.6 K/uL (4.8-10.8)
[2018-05-12 19:11] LABS: ALBUMIN 4.2 g/dL (3.5-5.0); ALT/SGPT 24 U/L (9-52); AST/SGOT 32 U/L (14-36); BLOOD UREA NITROGEN 19 mg/dL (7-17); CALCIUM 9.2 mg/dl (8.6-10.4); GFR NON-AFRICAN AMERICAN > 60; LIPASE 208 U/L (23-300)
[2018-05-12 19:20] VITALS: BP 117/72; PULSE 87; RESP 18; TEMP 98.3
--- NOTE | 2018-05-13 21:43 | CARD ---
APPROVED REPORT Date of service: 05/12/2018 EKG Measurement Heart [id number] <Conclusion> Normal sinus rhythm Normal ECG
== END 2018-05-12 19:44 | disposition home or self-care (01) ==
LOC: C.ER 16:49
DX: J06.9 Acute upper respiratory infection, unspecified (principal)

== ENCOUNTER 2018-06-30 08:04 | Emergency (ER) | payer MEDICARE, MEDICAID ==
[2018-06-30 08:04] VITALS: BMI 40.5
[2018-06-30 08:12] VITALS: RESP 20
--- NOTE | 2018-06-30 09:10 | C.PDOC ---
History Of Present Illness 57-year-old female, PMHx includes Anxiety, presents to the emergency department with complaints of palpitations and chest pain. Patient has been seen in ED multiple times in the past with multiple cardiac workups. No shortness of will ath, nausea/vomiting. No other complaints at this time. Time Seen by Provider: 06/30/18 08:21 Chief Complaint (Nursing): Chest Pain History Per: Patient History/Exam Limitations: no limitations Past Medical History Reviewed: Historical Data, Nursing Documentation, Vital Signs Vital Signs: Last Vital Signs Temp 98.1 F 06/30/18 08:06 Pulse 82 06/30/18 08:06 Resp 20 06/30/18 08:06 BP 104/48 L 06/30/18 08:06 Pulse Ox 95 06/30/18 08:06 - Medical History PMH: Anxiety, Arthritis, Atrial Fibrillation, CAD, Cardia Arrhythmia, CHF, COPD, Depression, Diabetes (hypoglycemia), Gastritis, Gall Bladder Disease, HTN, Hypercholesterolemia Denies: Chronic Kidney Disease Surgical History: Cholecystectomy, Coronary Stent (x2) - [facility] Procedures EXCISION OF STOMACH, ENDO, DIAGN (11/25/17) Family History: States: No Known Family Hx - Social History Hx Tobacco Use: Yes (QUIT) Hx Alcohol Use: No Hx Substance Use: No - Immunization History Hx Tetanus Toxoid Vaccination: No Hx Influenza Vaccination: No Hx Pneumococcal Vaccination: No Review Of Systems Cardiovascular: Positive for: Chest Pain, Palpitations Psych: Positive for: Anxiety Physical Exam - Physical Exam Appears: Non-toxic, No Acute Distress Skin: Normal Color, Warm, Dry, No Rash Head: Atraumatic, Normacephalic Eye(s): bilateral: Normal Inspection, PERRL, EOMI Nose: Normal Oral Mucosa: Moist Lips: Normal Appearing Neck: Normal ROM Chest: Symmetrical Cardiovascular: Rhythm Regular, No Murmur Respiratory: Normal Breath Sounds, No Accessory Muscle Use Gastrointestinal/Abdominal: Normal Exam Back: Normal Inspection Extremity: Normal ROM, No Pedal Edema Neurological/Psych: Oriented x3, Normal Speech ED Course And Treatment - Laboratory Results Result Diagrams: 06/30/18 09:18 06/30/18 09:18 O2 Sat by Pulse Oximetry: 95 Medical Decision Making Medical Decision Making: numerous visits and admission. cleared by cards numerous times. advise otut fu. labs trop neg. pt on phone in nad Disposition - Disposition Disposition: HOME/ ROUTINE Disposition Time: 11:00 Condition: STABLE Additional Instructions: return to er with worsening syptoms or concers. Prescriptions: Famotidine [Pepcid] 20 mg PO DAILY #20 tab Instructions: Chest Pain, Acute Abdomen (Belly Pain) Forms: [employer] ([place]ian) - Clinical Impression Clinical Impression: Chest pain, Abdominal pain
[2018-06-30 09:24] LABS: BASO % 0.7 % (0.0-2.0); EOS # 0.3 K/uL (0.0-0.7); EOS % 4.5 % (0.0-4.0); HEMOGLOBIN 11.6 g/dL (11.0-16.0); LYMPH # 1.8 K/uL (1.0-4.3); LYMPH % 26.5 % (20.0-40.0); MEAN CORPUSCULAR HEMOGLOBIN 25.7 pg (27.0-31.0); MEAN CORPUSCULAR HGB CONC 33.3 g/dL (33.0-37.0); MEAN PLATELET VOLUME 8.3 fL (7.2-11.7); MONO # 0.4 K/uL (0.0-0.8); MONO % 6.3 % (0.0-10.0); NEUT # 4.1 K/uL (1.8-7.0); NRBC % 0.1 % (0.0-2.0); RBC 4.52 Mil/uL (3.80-5.20); RED CELL DISTRIBUTION WIDTH 15.2 % (11.5-14.5); WHITE BLOOD COUNT 6.6 K/uL (4.8-10.8)
[2018-06-30 09:32] LABS: INR 1.2
--- NOTE | 2018-06-30 09:38 | RAD ---
Date of service: 06/30/2018 HISTORY: chest pain COMPARISON: 05/12/2018 TECHNIQUE: Chest PA and lateral FINDINGS: LUNGS: No active pulmonary disease. PLEURA: No significant pleural effusion identified. No pneumothorax apparent. CARDIOVASCULAR: No aortic atherosclerotic calcification present. Normal cardiac size. No pulmonary vascular congestion. OSSEOUS STRUCTURES: No significant abnormalities. VISUALIZED UPPER ABDOMEN: Normal. OTHER FINDINGS: None. IMPRESSION: No active disease.
[2018-06-30 09:59] LABS: HCG,QUALITATIVE URINE NEGATIVE (NEGATIVE)
[2018-06-30 10:05] LABS: SQUAMOUS EPITHIAL 6 /hpf (0-5); URINE BACTERIA RARE (<OCC); URINE BILIRUBIN NEGATIVE (NEGATIVE); URINE BLOOD NEGATIVE (NEGATIVE); URINE CLARITY Clear (Clear); URINE COLOR Yellow (YELLOW); URINE GLUCOSE (UA) NORMAL (Normal); URINE LEUKOCYTE ESTERASE TRACE Leu/uL (Negative); URINE PROTEIN NEGATIVE (NEGATIVE); URINE UROBILINOGEN NORMAL mg/dL (0.2-1.0)
[2018-06-30 10:06] LABS: ALB/GLOB RATIO 1.1 (1.0-2.1); ALT/SGPT 18 U/L (9-52); AST/SGOT 19 U/L (14-36); BLOOD UREA NITROGEN 15 mg/dL (7-17); CALCIUM 9.2 mg/dl (8.6-10.4); GFR NON-AFRICAN AMERICAN > 60; LIPASE 186 U/L (23-300)
[2018-06-30] MEDS ORDERED: Potassium Chloride 20 mEq ER Tab PO STA (10:06)
[2018-06-30] MEDS ORDERED: Potassium Chloride 20 mEq ER Tab PO ONE (10:22)
[2018-06-30 11:52] VITALS: BP 108/72; PULSE 79; TEMP 98.1
[2018-06-30 14:54] VITALS: O2SAT 95
--- NOTE | 2018-06-30 19:33 | CARD ---
APPROVED REPORT Date of service: 06/30/2018 EKG Measurement Heart [id number] <Conclusion> Normal sinus rhythm Normal ECG
== END 2018-06-30 11:53 | disposition home or self-care (01) ==
LOC: C.ER 08:04
DX: R07.9 Chest pain, unspecified (principal); R10.9 Unspecified abdominal pain

== ENCOUNTER 2018-08-08 07:29 | Observation (INO) | payer MEDICARE, MEDICAID ==
[2018-08-08 07:55] VITALS: BMI 42.9
[2018-08-08] MEDS ORDERED: Sodium Chloride 0.9% 1,000 ML IV ONE (07:55)
[2018-08-08 08:30] LABS: BASO # 0.1 K/uL (0.0-0.2); BASO % 0.9 % (0.0-2.0); EOS # 0.2 K/uL (0.0-0.7); HEMOGLOBIN 11.3 g/dL (11.0-16.0); LYMPH # 1.5 K/uL (1.0-4.3); LYMPH % 25.1 % (20.0-40.0); MEAN CELL VOLUME 78.6 fL (81.0-99.0); MEAN CORPUSCULAR HEMOGLOBIN 26.3 pg (27.0-31.0); MEAN CORPUSCULAR HGB CONC 33.4 g/dL (33.0-37.0); MEAN PLATELET VOLUME 8.1 fL (7.2-11.7); MONO # 0.3 K/uL (0.0-0.8); MONO % 4.8 % (0.0-10.0); NEUT # 3.9 K/uL (1.8-7.0); NEUT % 66.2 % (50.0-75.0); RBC 4.31 Mil/uL (3.80-5.20); WHITE BLOOD COUNT 5.9 K/uL (4.8-10.8)
[2018-08-08] MEDS ORDERED: Iohexol 300 100 ML IJ ONE (08:33)
[2018-08-08 08:37] LABS: INR 1.2; PROTHROMBIN TIME 13.4 SECONDS (9.7-12.2)
[2018-08-08] MEDS ORDERED: Sodium Chloride 0.9% 1,000 ML ONE (08:39)
--- NOTE | 2018-08-08 08:40 | C.PDOC ---
History Of Present Illness 57-year-old female with a history of cholecystectomy presents to the ED for evaluation of diffuse abdominal pain associated with nausea, vomiting, and diarrhea for 2 days. The patient states having a normal bowel movement today. She also complains of intermittent chest palpitations. Denies constipation, fever, shortness of breath, and any other associated symptoms. Time Seen by Provider: 08/08/18 07:31 Chief Complaint (Nursing): Abdominal Pain History Per: Patient History/Exam Limitations: no limitations Onset/Duration Of Symptoms: Days Current Symptoms Are (Timing): Still Present Location Of Pain/Discomfort: Diffuse Recent travel outside of the [place]: No Past Medical History Reviewed: Historical Data, Nursing Documentation, Vital Signs Vital Signs: Last Vital Signs Temp 98.8 F 08/08/18 07:31 Pulse 96 H 08/08/18 07:31 Resp 18 08/08/18 07:31 BP 100/64 08/08/18 07:31 Pulse Ox 96 08/08/18 07:31 - Medical History PMH: Anxiety, Arthritis, Atrial Fibrillation, CAD, Cardia Arrhythmia, CHF, COPD, Depression, Diabetes (hypoglycemia), Gastritis, Gall Bladder Disease, HTN, Hypercholesterolemia Denies: Chronic Kidney Disease Surgical History: Cholecystectomy, Coronary Stent (x2) - [facility] Procedures EXCISION OF STOMACH, ENDO, DIAGN (11/25/17) Family History: States: Unknown Family Hx - Social History Hx Tobacco Use: Yes (QUIT) Hx Alcohol Use: No Hx Substance Use: No - Immunization History Hx Tetanus Toxoid Vaccination: No Hx Influenza Vaccination: No (ALLERGY) Hx Pneumococcal Vaccination: No (ALLERGY) Review Of Systems Except As Marked, All Systems Reviewed And Found Negative. Constitutional: Negative for: Fever Cardiovascular: Positive for: Palpitations Respiratory: Negative for: Shortness of Breath Gastrointestinal: Positive for: Nausea, Vomiting, Abdominal Pain (diffuse. ), Diarrhea. Negative for: Constipation Physical Exam - Physical Exam Appears: Well, Non-toxic, No Acute Distress Skin: Normal Color, Warm, Dry Head: Atraumatic, Normacephalic Eye(s): bilateral: Normal Inspection Oral Mucosa: Moist Neck: Normal ROM, Supple Chest: Symmetrical, No Deformity Cardiovascular: Rhythm Regular, No Murmur Respiratory: Normal Breath Sounds, No Rales, No Rhonchi, No Wheezing Gastrointestinal/Abdominal: Normal Exam, Soft, Tenderness (diffuse abdominal tenderness. ), No Mass, No Distention, Guarding, No Rebound Neurological/Psych: Oriented x3, Normal Speech, Normal Cognition ED Course And Treatment - Laboratory Results Result Diagrams: 08/08/18 08:24 08/08/18 08:24 ECG: Interpreted By Me, Viewed By Me Interpretation Of ECG: Normal sinus rhythm. No ST elevation. QT normal Rate From EC O2 Sat by Pulse Oximetry: 96 (RA) Pulse Ox Interpretation: Normal - Radiology CXR: Viewed By Me - Other Rad CXR X-Ray: Interpreted by Me, Viewed By Me Interpretation: Cardiomegaly. no infiltrates. no pneumothorax - CT Scan/US CT ABD/Pelvis Other Rad Studies (CT/US): Read By Radiologist CT/US Interpretation: FINDINGS: LOWER THORAX: Mild cardiomegaly is noted. No evidence of acute pathology in the lung bases. No evidence of pleural effusion. LIVER: Unremarkable. No gross lesion or ductal dilatation. GALLBLADDER AND BILE DUCTS: Status post cholecystectomy. PANCREAS: Unremarkable. No gross lesion or ductal dilatation. SPLEEN: Unremarkable. ADRENALS: Unremarkable. No mass. KIDNEYS AND URETERS: Unremarkable. No hydronephrosis. No solid mass. VASCULATURE: Unremarkable. No aortic aneurysm. No aortic atherosclerotic calci fication or mural plaque present. BOWEL: Unremarkable. No obstruction. No gross mural thickening. APPENDIX: Normal appendix. PERITONEUM: Unremarkable. No free fluid. No free air. LYMPH NODES: Unremarkable. No enlarged lymph nodes. BLADDER: Unremarkable. REPRODUCTIVE: The uterus is prominent in size. There is 3.5 x 3 centimeter soft tissue lesion protruding from the uterine fundus likely represent subserosal fibroid. No evidence of acute pathology in the adnexa. BONES: No acute fracture. OTHER FINDINGS: None. IMPRESSION: No evidence of acute pathology in the abdomen and pelvis. Status post cholecystectomy. No evidence of pancreatitis or appendicitis. Fundal leiomyoma measures 3.5 x 3 centimeter. Medical Decision Making Medical Decision Making: Plan: -Blood sent. -CXR -Urine culture -Urinalysis -Morphine -Pepcid -Zofran -EKG -CT ABD/PELVIS IV Contrast only Progress/Update: 11:32 : Spoke with Dr. Raz Zuñiga who accepted admission. Disposition - Disposition Disposition: HOSPITALIZED Disposition Time: 15:00 Condition: STABLE - Clinical Impression Clinical Impression: Abdominal wall pain, Chest pain - Scribe Statement The provider has reviewed the documentation as recorded by the Scribe (Margarita Benson) Provider Attestation: All medical record entries made by the Scribe were at my direction and person ally dictated by me. I have reviewed the chart and agree that the record accurately reflects my personal performance of the history, physical exam, medical decision making, and the department course for this patient. I have also personally directed, reviewed, and agree with the discharge instructions and disposition. Decision To Admit - . Patient Diagnosis: Abdominal wall pain, Chest pain
[2018-08-08 08:49] LABS: ALB/GLOB RATIO 1.2 (1.0-2.1); ALBUMIN 3.9 g/dL (3.5-5.0); ALT/SGPT 22 U/L (9-52); AST/SGOT 21 U/L (14-36); BLOOD UREA NITROGEN 15 mg/dL (7-17); GFR NON-AFRICAN AMERICAN > 60; LIPASE 156 U/L (23-300)
[2018-08-08] MEDS ORDERED: Potassium Chloride 20 mEq ER Tab PO STA (10:49)
--- NOTE | 2018-08-08 11:07 | CT ---
Date of service: 08/08/2018 PROCEDURE: CT Abdomen and Pelvis with contrast HISTORY: abd pain COMPARISON: None. TECHNIQUE: Contrast dose: 100 mL of Omnipaque 300 intravenously. Axial and reformatted coronal and sagittal CT images of the abdomen and pelvis were obtained after IV contrast administration. Radiation dose: Total exam DLP = 1064.87 mGy-cm. This CT exam was performed using one or more of the following dose reduction techniques: Automated exposure control, adjustment of the mA and/or kV according to patient size, and/or use of iterative reconstruction technique. FINDINGS: LOWER THORAX: Mild cardiomegaly is noted. No evidence of acute pathology in the lung bases. No evidence of pleural effusion. LIVER: Unremarkable. No gross lesion or ductal dilatation. GALLBLADDER AND BILE DUCTS: Status post cholecystectomy. PANCREAS: Unremarkable. No gross lesion or ductal dilatation. SPLEEN: Unremarkable. ADRENALS: Unremarkable. No mass. KIDNEYS AND URETERS: Unremarkable. No hydronephrosis. No solid mass. VASCULATURE: Unremarkable. No aortic aneurysm. No aortic atherosclerotic calcification or mural plaque present. BOWEL: Unremarkable. No obstruction. No gross mural thickening. APPENDIX: Normal appendix. PERITONEUM: Unremarkable. No free fluid. No free air. LYMPH NODES: Unremarkable. No enlarged lymph nodes. BLADDER: Unremarkable. REPRODUCTIVE: The uterus is prominent in size. There is 3.5 x 3 centimeter soft tissue lesion protruding from the uterine fundus likely represent subserosal fibroid. No evidence of acute pathology in the adnexa. BONES: No acute fracture. OTHER FINDINGS: None. IMPRESSION: No evidence of acute pathology in the abdomen and pelvis. Status post cholecystectomy. No evidence of pancreatitis or appendicitis. Fundal leiomyoma measures 3.5 x 3 centimeter.
[2018-08-08] MEDS ORDERED: Potassium Chloride 20 mEq ER Tab PO ONE (11:09)
[2018-08-08 11:59] LABS: SQUAMOUS EPITHIAL 5 /hpf (0-5); URINE BILIRUBIN NEGATIVE (NEGATIVE); URINE BLOOD NEGATIVE (NEGATIVE); URINE CLARITY Clear (Clear); URINE COLOR Yellow (YELLOW); URINE GLUCOSE (UA) NORMAL (Normal); URINE LEUKOCYTE ESTERASE NEG Leu/uL (Negative); URINE PROTEIN NEGATIVE (NEGATIVE)
[2018-08-08] MEDS ORDERED: Morphine 4 MG/ML VIAL IV ONE (13:08)
--- NOTE | 2018-08-08 13:11 | RAD ---
Date of service: 08/08/2018 PROCEDURE: CHEST RADIOGRAPH, 1 VIEW HISTORY: abd pain COMPARISON: Comparison is made with 06/30/2018 FINDINGS: LUNGS: Clear. PLEURA: No pneumothorax or pleural fluid seen. CARDIOVASCULAR: No aortic atherosclerotic calcification present. Normal. OSSEOUS STRUCTURES: No significant abnormalities. VISUALIZED UPPER ABDOMEN: Normal. OTHER FINDINGS: None. IMPRESSION: No active disease.
--- NOTE | 2018-08-08 17:17 | CP.PCM.HP ---
Past Patient History - Infectious Disease Hx of Infectious Diseases: None - Tetanus Immunizations Tetanus Immunization: Unknown - Past Medical History & Family History Past Medical History?: Yes - Past Social History Smoking Status: Heavy Smoker > 10 Cigarettes Daily - CARDIAC Hx Atrial Fibrillation: Yes Hx Cardia Arrhythmia: Yes Hx Congestive Heart Failure: Yes Hx Hypercholesterolemia: Yes Hx Hypertension: Yes - PULMONARY Hx Chronic Obstructive Pulmonary Disease (COPD): Yes - NEUROLOGICAL Hx Neurological Disorder: Yes HX Cerebrovascular Accident: Yes Hx Dizziness: Yes - HEENT Hx HEENT Problems: Yes Other/Comment: wears glasses for reading - RENAL Hx Chronic Kidney Disease: No - ENDOCRINE/METABOLIC Hx Endocrine Disorders: Yes Hx Diabetes Mellitus Type 1: Yes Hx Diabetes Mellitus Type 2: Yes - HEMATOLOGICAL/ONCOLOGICAL Hx Blood Disorders: No - INTEGUMENTARY Hx Dermatological Problems: Yes Hx Eczema: Yes - MUSCULOSKELETAL/RHEUMATOLOGICAL Hx Arthritis: Yes - GASTROINTESTINAL Hx Gall Bladder Disease: Yes Hx Gastritis: Yes - GENITOURINARY/GYNECOLOGICAL Hx Genitourinary Disorders: No - PSYCHIATRIC Hx Anxiety: Yes Hx Depression: Yes Hx Substance Use: No - SURGICAL HISTORY Hx Cholecystectomy: Yes Hx Coronary Stent: Yes (x2) - ANESTHESIA Hx Anesthesia: Yes Hx Anesthesia Reactions: No Meds Allergies/Adverse Reactions: Allergies Allergy/AdvReac Type Severity Reaction Status Date / Time verapamil Allergy Verified 08/08/18 07:45 escitalopram [From Lexapro] AdvReac ANAPHYLAXIS Verified 08/08/18 07:45 Flu vaccine Allergy ANAPHYLAXIS Uncoded 08/08/18 07:45 pnuemonia vaccine Allergy ANAPHYLAXIS Uncoded 08/08/18 07:45 steroids Allergy Uncoded 08/08/18 07:46 wool Allergy ANAPHYLAXIS Uncoded 08/08/18 07:45 Physical Exam - Constitutional Appears: Well - Head Exam Head Exam: ATRAUMATIC, NORMAL INSPECTION, NORMOCEPHALIC - Eye Exam Eye Exam: EOMI, Normal appearance, PERRL Pupil Exam: NORMAL ACCOMODATION, PERRL - ENT Exam ENT Exam: Mucous Membranes Moist, Normal Exam - Neck Exam Neck exam: Positive for: Normal Inspection - Respiratory Exam Respiratory Exam: Decreased Breath Sounds - Cardiovascular Exam Cardiovascular Exam: REGULAR RHYTHM, +S1, +S2 - GI/Abdominal Exam GI & Abdominal Exam: Diminished Bowel Sounds, Soft - Rectal Exam Rectal Exam: Deferred Results - Vital Signs Recent Vital Signs: Last Vital Signs Temp 98.1 F 08/08/18 15:00 Pulse 78 08/08/18 15:00 Resp 20 08/08/18 15:00 BP 102/57 L 08/08/18 15:00 Pulse Ox 96 08/08/18 15:05 - Labs Result Diagrams: 08/08/18 08:24 08/08/18 08:24 Labs: Laboratory Results - last 24 hr 08/08/18 08/08/18 08/08/18 07:44 08:24 08:24 WBC 5.9 RBC 4.31 Hgb 11.3 Hct 33.9 L MCV 78.6 L MCH 26.3 L MCHC 33.4 RDW 16.0 H Plt Count 379 MPV 8.1 Neut % (Auto) 66.2 Lymph % (Auto) 25.1 [place] % (Auto) 4.8 Eos % (Auto) 3.0 Baso % (Auto) 0.9 Neut # (Auto) 3.9 Lymph # (Auto) 1.5 [place] # (Auto) 0.3 Eos # (Auto) 0.2 Baso # (Auto) 0.1 PT INR APTT Sodium 138 Potassium 3.1 L Chloride 98 Carbon Dioxide 30 Anion Gap 13 BUN 15 Creatinine 0.8 Est GFR ( Amer) > 60 Est GFR (Non-Af Amer) > 60 POC Glucose (mg/dL) 155 H Random Glucose 147 H Calcium 9.0 Total Bilirubin 0.5 AST 21 ALT 22 Alkaline Phosphatase 114 Troponin I < 0.0120 Total Protein 7.1 Albumin 3.9 Globulin 3.2 Albumin/Globulin Ratio 1.2 Lipase 156 Urine Color Urine Clarity Urine pH Ur Specific [place] Urine Protein Urine Glucose (UA) Urine Ketones Urine Blood Urine Nitrate Urine Bilirubin Urine Urobilinogen Ur Leukocyte Esterase Urine WBC (Auto) Urine RBC (Auto) Ur Squamous Epith Cells 08/08/18 08/08/18 08/08/18 08:24 11:23 12:12 WBC RBC Hgb Hct MCV MCH MCHC RDW Plt Count MPV Neut % (Auto) Lymph % (Auto) [place] % (Auto) Eos % (Auto) Baso % (Auto) Neut # (Auto) Lymph # (Auto) [place] # (Auto) Eos # (Auto) Baso # (Auto) PT 13.4 H INR 1.2 APTT 31 Sodium Potassium Chloride Carbon Dioxide Anion Gap BUN Creatinine Est GFR ( Amer) Est GFR (Non-Af Amer) POC Glucose (mg/dL) 99 Random Glucose Calcium Total Bilirubin AST ALT Alkaline Phosphatase Troponin I Total Protein Albumin Globulin Albumin/Globulin Ratio Lipase Urine Color Yellow Urine Clarity Clear Urine pH 5.0 Ur Specific [place] 1.050 H Urine Protein Negative Urine Glucose (UA) Normal Urine Ketones Negative Urine Blood Negative Urine Nitrate Negative Urine Bilirubin Negative Urine Urobilinogen 2.0 H Ur Leukocyte Esterase Neg Urine WBC (Auto) 1 Urine RBC (Auto) 1 Ur Squamous Epith Cells 5 08/08/18 16:12 WBC RBC Hgb Hct MCV MCH MCHC RDW Plt Count MPV Neut % (Auto) Lymph % (Auto) [place] % (Auto) Eos % (Auto) Baso % (Auto) Neut # (Auto) Lymph # (Auto) [place] # (Auto) Eos # (Auto) Baso # (Auto) PT INR APTT Sodium Potassium Chloride Carbon Dioxide Anion Gap BUN Creatinine Est GFR ( Amer) Est GFR (Non-Af Amer) POC Glucose (mg/dL) 103 Random Glucose Calcium Total Bilirubin AST ALT Alkaline Phosphatase Troponin I Total Protein Albumin Globulin Albumin/Globulin Ratio Lipase Urine Color Urine Clarity Urine pH Ur Specific [place] Urine Protein Urine Glucose (UA) Urine Ketones Urine Blood Urine Nitrate Urine Bilirubin Urine Urobilinogen Ur Leukocyte Esterase Urine WBC (Auto) Urine RBC (Auto) Ur Squamous Epith Cells
[2018-08-08] MEDS: Potassium Chloride 10 mEq ER Tab PO SCH (21:00)
[2018-08-09] MEDS: Potassium Chloride 10 mEq ER Tab PO SCH (00:02)
--- NOTE | 2018-08-09 08:32 | CP.PCM.PN ---
Subjective - Date & Time of Evaluation Date of Evaluation: 08/09/18 Time of Evaluation: 08:31 - Subjective Subjective: Medicine Progress Note - Dr Raz Zuñiga Patient seen and examined at bedside. Per nursing no acute events overnight. Patient complaining of upper and lower abdominal pain. Pain is intermittent in nature and has been improving. Reports having multiple episodes of vomiting prior to admission. States that she has been able to tolerate her diet today. Unable to recall when last BM was and reports feeling constipated. Denies headaches, dizziness, cp, palpitations, sob, urinary symptoms. Objective - Vital Signs/Intake and Output Vital Signs (last 24 hours): Temp Pulse Resp BP Pulse Ox 97.7 F 89 20 113/55 L 97 08/09/18 07:24 08/09/18 07:24 08/09/18 07:24 08/09/18 07:24 08/09/18 07:24 - Medications Medications: Current Medications Aspirin (Aspirin) 325 mg PO DAILY [facility] Clonazepam (Klonopin) 1 mg PO TID [facility] Last Admin: 08/08/18 17:36 Dose: 1 mg Diltiazem HCl (Cardizem) 30 mg PO TID [facility] Last Admin: 08/08/18 21:05 Dose: 30 mg Famotidine (Pepcid) 20 mg PO DAILY [facility] Gabapentin (Neurontin) 100 mg PO TID [facility] Last Admin: 08/08/18 17:35 Dose: 100 mg Hydrochlorothiazide (Hydrodiuril) 25 mg PO DAILY [facility] Losartan Potassium (Cozaar) 100 mg PO DAILY [facility] Montelukast Sodium (Singulair) 10 mg PO HS [facility] Last Admin: 08/08/18 21:04 Dose: 10 mg Simethicone (Mylicon Chew Tab) 80 mg PO Q8H PRN PRN Reason: GI distress Temazepam (Restoril) 15 mg PO HS PRN PRN Reason: Insomnia Last Admin: 08/08/18 21:05 Dose: 15 mg Tramadol HCl (Ultram) 50 mg PO Q6 PRN PRN Reason: Pain, severe (8-10) Last Admin: 08/09/18 00:00 Dose: 50 mg - Labs Labs: 08/08/18 08:24 08/08/18 08:24 PT 13.4 SECONDS (9.7-12.2) H 12/16/18 08:24 INR 1.2 08/08/18 08:24 APTT 31 SECONDS (21-34) 08/08/18 08:24 - Constitutional Appears: Non-toxic, No Acute Distress - Head Exam Head Exam: ATRAUMATIC, NORMAL INSPECTION, NORMOCEPHALIC - Eye Exam Eye Exam: EOMI, Normal appearance - ENT Exam ENT Exam: Mucous Membranes Moist - Neck Exam Neck Exam: Full ROM - Respiratory Exam Respiratory Exam: Clear to Ausculation Bilateral, NORMAL BREATHING PATTERN. absent: Rales, Rhonchi, Wheezes - Cardiovascular Exam Cardiovascular Exam: REGULAR RHYTHM, +S1, +S2 - GI/Abdominal Exam GI & Abdominal Exam: Soft, Tenderness (diffuse abdominal tenderness), Normal Bowel Sounds. absent: Distended, Firm, Guarding, Rigid - Extremities Exam Extremities Exam: Normal Inspection. absent: Calf Tenderness - Neurological Exam Neurological Exam: Alert, Awake, Oriented x3 - Psychiatric Exam Psychiatric exam: Normal Affect, Normal Mood - Skin Skin Exam: Normal Color, Warm Assessment and Plan - Assessment and Plan (Free Text) Assessment: Palpitations, Chest pain r/o ACS, History of AVNRT s/p ablation -Stable, afebrile -Troponins negative x 3 -EKG: NSR 94 bpm, no acute ST-T wave changes -CXR: no active disease -Continue Cardizem 30mg PO TID, ASA 325mg PO daily -Patient is requesting Metoprolol, HR known to be low on this medication, will monitor off beta monica at this time. -Cardiology on consult, Dr Lynn, help appreciated; Patient cleared from cardiac perspective Abdominal Pain -Pain control with Tramadol 50mg PO TID -CT abd/pelvis showed No evidence of acute pathology in the abdomen and pelvis. Status post cholecystectomy. No evidence of pancreatitis or appendicitis. Fundal leiomyoma measures 3.5 x 3 centimeter (see full report) -Added lactulose for constipation -EGD 11/2017 showed Grade B reflux esophagitis, acute gastritis, medium sized hia clementine hernia -GI consulted, Dr Wen, help appreciated Hypokalemia -F/U repeat CMP and Mg -Replete as needed Hypertension -HCTZ discontinued secondary to hypokalemia -Continue Cozaar 100mg PO daily -Monitor Vitals History of COPD -Continue Singulair 10mg PO HS History of GERD -Pepcid 20mg PO daily -Simethicone 80mg BID prn GI Distress Depression/Anxiety -Continue Klonopin 1 tab PO TID GI/DVT ppx -Pepcid 20mg PO daily -Lovenox 40mg SC daily Plan discussed with Dr aRz Hector DO PGY-2
--- NOTE | 2018-08-09 09:38 | CP.PCM.CON ---
History of Present Illness - History of Present Illness History of Present Illness: The pt is a 57 year old female, with a remote h/o avt ablation, and countless admissions, both here and at [facility] for chest pain. Pt also gets chest pain. Patient always rules out, and has had an extensive work up for CAD, negative. this time pt is admitted for abdominal pain, nausea and vomiting. CT of the chest is negatived, labs normal except for low k, but pt on a diuretic. pt was seen the day before her admission ere at [facility] ER and sent home. Review of Systems - Review of Systems All systems: reviewed and no additional remarkable complaints except (as above) Past Patient History - Infectious Disease Hx of Infectious Diseases: None - Tetanus Immunizations Tetanus Immunization: Unknown - Past Medical History & Family History Past Medical History?: Yes - Past Social History Smoking Status: Heavy Smoker > 10 Cigarettes Daily - CARDIAC Hx Atrial Fibrillation: Yes Hx Cardia Arrhythmia: Yes Hx Congestive Heart Failure: Yes Hx Hypercholesterolemia: Yes Hx Hypertension: Yes - PULMONARY Hx Chronic Obstructive Pulmonary Disease (COPD): Yes - NEUROLOGICAL Hx Neurological Disorder: Yes HX Cerebrovascular Accident: Yes Hx Dizziness: Yes - HEENT Hx HEENT Problems: Yes Other/Comment: wears glasses for reading - RENAL Hx Chronic Kidney Disease: No - ENDOCRINE/METABOLIC Hx Endocrine Disorders: Yes Hx Diabetes Mellitus Type 1: Yes Hx Diabetes Mellitus Type 2: Yes - HEMATOLOGICAL/ONCOLOGICAL Hx Blood Disorders: No - INTEGUMENTARY Hx Dermatological Problems: Yes Hx Eczema: Yes - MUSCULOSKELETAL/RHEUMATOLOGICAL Hx Arthritis: Yes - GASTROINTESTINAL Hx Gall Bladder Disease: Yes Hx Gastritis: Yes - GENITOURINARY/GYNECOLOGICAL Hx Genitourinary Disorders: No - PSYCHIATRIC Hx Anxiety: Yes Hx Depression: Yes Hx Substance Use: No - SURGICAL HISTORY Hx Cholecystectomy: Yes Hx Coronary Stent: Yes (x2) - ANESTHESIA Hx Anesthesia: Yes Hx Anesthesia Reactions: No Meds Allergies/Adverse Reactions: Allergies Allergy/AdvReac Type Severity Reaction Status Date / Time verapamil Allergy Verified 08/08/18 07:45 escitalopram [From Lexapro] AdvReac ANAPHYLAXIS Verified 08/08/18 07:45 Flu vaccine Allergy ANAPHYLAXIS Uncoded 08/08/18 07:45 pnuemonia vaccine Allergy ANAPHYLAXIS Uncoded 08/08/18 07:45 steroids Allergy Uncoded 08/08/18 07:46 wool Allergy ANAPHYLAXIS Uncoded 08/08/18 07:45 - Medications Medications: Current Medications Aspirin (Aspirin) 325 mg PO DAILY [facility] Clonazepam (Klonopin) 1 mg PO TID [facility] Last Admin: 08/08/18 17:36 Dose: 1 mg Diltiazem HCl (Cardizem) 30 mg PO TID [facility] Last Admin: 08/08/18 21:05 Dose: 30 mg Enoxaparin Sodium (Lovenox) 40 mg SC DAILY [facility] Famotidine (Pepcid) 20 mg PO DAILY [facility] Gabapentin (Neurontin) 100 mg PO TID [facility] Last Admin: 08/08/18 17:35 Dose: 100 mg Losartan Potassium (Cozaar) 100 mg PO DAILY [facility] Montelukast Sodium (Singulair) 10 mg PO HS [facility] Last Admin: 08/08/18 21:04 Dose: 10 mg Simethicone (Mylicon Chew Tab) 80 mg PO Q8H PRN PRN Reason: GI distress Temazepam (Restoril) 15 mg PO HS PRN PRN Reason: Insomnia Last Admin: 08/08/18 21:05 Dose: 15 mg Tramadol HCl (Ultram) 50 mg PO Q6 PRN PRN Reason: Pain, severe (8-10) Last Admin: 08/09/18 08:35 Dose: 50 mg Physical Exam - Constitutional Appears: Well - Head Exam Head Exam: ATRAUMATIC - Eye Exam Eye Exam: EOMI, PERRL - ENT Exam ENT Exam: Mucous Membranes Moist - Neck Exam Neck exam: Positive for: Normal Inspection - Respiratory Exam Respiratory Exam: Clear to Auscultation Bilateral - Cardiovascular Exam Cardiovascular Exam: REGULAR RHYTHM - GI/Abdominal Exam GI & Abdominal Exam: Normal Bowel Sounds - Exam External exam: NORMAL EXTERNAL EXAM - Extremities Exam Extremities exam: Positive for: normal inspection - Back Exam Back exam: NORMAL INSPECTION - Neurological Exam Neurological exam: Alert, CN II-XII Intact, Oriented x3, Reflexes Normal - Psychiatric Exam Psychiatric exam: Anxious - Skin Skin Exam: Normal Color Results - Vital Signs Recent Vital Signs: Last Vital Signs Temp 97.7 F 08/09/18 07:24 Pulse 89 08/09/18 07:24 Resp 20 08/09/18 07:24 BP 113/55 L 08/09/18 07:24 Pulse Ox 97 08/09/18 07:24 - Labs Result Diagrams: 08/08/18 08:24 08/08/18 08:24 Labs: Laboratory Results - last 24 hr 08/08/18 08/08/18 08/08/18 11:23 12:12 16:12 POC Glucose (mg/dL) 99 103 Troponin I Urine Color Yellow Urine Clarity Clear Urine pH 5.0 Ur Specific [place] 1.050 H Urine Protein Negative Urine Glucose (UA) Normal Urine Ketones Negative Urine Blood Negative Urine Nitrate Negative Urine Bilirubin Negative Urine Urobilinogen 2.0 H Ur Leukocyte Esterase Neg Urine WBC (Auto) 1 Urine RBC (Auto) 1 Ur Squamous Epith Cells 5 08/08/18 08/08/18 08/09/18 19:14 21:30 00:35 POC Glucose (mg/dL) 131 H Troponin I < 0.0120 < 0.0120 Urine Color Urine Clarity Urine pH Ur Specific [place] Urine Protein Urine Glucose (UA) Urine Ketones Urine Blood Urine Nitrate Urine Bilirubin Urine Urobilinogen Ur Leukocyte Esterase Urine WBC (Auto) Urine RBC (Auto) Ur Squamous Epith Cells 08/09/18 06:20 POC Glucose (mg/dL) 95 Troponin I Urine Color Urine Clarity Urine pH Ur Specific [place] Urine Protein Urine Glucose (UA) Urine Ketones Urine Blood Urine Nitrate Urine Bilirubin Urine Urobilinogen Ur Leukocyte Esterase Urine WBC (Auto) Urine RBC (Auto) Ur Squamous Epith Cells - EKG Data EKG Interpreted by: Myself EKG shows normal: Sinus rhythm Rate: Normal (normal as per my read) Assessment & Plan - Assessment and Plan (Free Text) Assessment: 1. CV status is stable; no svt recurrence. No evidence of ACS. One of numerous admissions to the hospital with normal pathology. Not sure why patient keeps getting admitted with normal studies. 2. Bp is on the low side, k is low. Stop diuretic. Continue cardezem
[2018-08-09] MEDS: Enoxaparin 40 mg Syringe SC SCH (09:54)
[2018-08-09] MEDS ORDERED: Potassium Chloride 20 mEq ER Tab PO ONE (10:00)
[2018-08-09 11:19] LABS: BASO # 0.1 K/uL (0.0-0.2); BASO % 1.4 % (0.0-2.0); EOS # 0.3 K/uL (0.0-0.7); HEMOGLOBIN 10.5 g/dL (11.0-16.0); LYMPH # 2.1 K/uL (1.0-4.3); MEAN CELL VOLUME 79.7 fL (81.0-99.0); MEAN CORPUSCULAR HEMOGLOBIN 26.8 pg (27.0-31.0); MEAN CORPUSCULAR HGB CONC 33.6 g/dL (33.0-37.0); MEAN PLATELET VOLUME 8.6 fL (7.2-11.7); MONO # 0.4 K/uL (0.0-0.8); MONO % 5.7 % (0.0-10.0); NEUT # 3.8 K/uL (1.8-7.0); NEUT % 56.9 % (50.0-75.0); NRBC % 0.1 % (0.0-2.0); RBC 3.92 Mil/uL (3.80-5.20); RED CELL DISTRIBUTION WIDTH 16.4 % (11.5-14.5); WHITE BLOOD COUNT 6.7 K/uL (4.8-10.8)
[2018-08-09 11:34] LABS: ALB/GLOB RATIO 1.2 (1.0-2.1); ALBUMIN 3.6 g/dL (3.5-5.0); ALT/SGPT 29 U/L (9-52); AST/SGOT 28 U/L (14-36); BLOOD UREA NITROGEN 13 mg/dL (7-17); CALCIUM 8.4 mg/dl (8.6-10.4); GFR NON-AFRICAN AMERICAN > 60
[2018-08-09] MEDS: Metoprolol Succinate 25 mg XL Tab PO SCH (14:42)
[2018-08-09] MEDS: Simethicone 80 mg Chewtab PO PRN (16:20)
--- NOTE | 2018-08-09 17:12 | CARD ---
APPROVED REPORT Date of service: 08/08/2018 EKG Measurement Heart [id number] <Conclusion> Normal sinus rhythm Normal ECG
--- NOTE | 2018-08-09 19:03 | CP.PCM.PN ---
Subjective - Date & Time of Evaluation Date of Evaluation: 08/09/18 Time of Evaluation: 08:45 - Subjective Subjective: clinically same Objective - Vital Signs/Intake and Output Vital Signs (last 24 hours): Temp Pulse Resp BP Pulse Ox 98.3 F 78 20 128/81 97 08/09/18 15:00 08/09/18 15:45 08/09/18 15:00 08/09/18 15:00 08/09/18 15:00 - Medications Medications: Current Medications Aspirin (Aspirin) 325 mg PO DAILY COUNTS [facility]CLUDE 234 BEDS AT [facility] Last Admin: 08/09/18 09:54 Dose: 325 mg Clonazepam (Klonopin) 1 mg PO TID COUNTS INCLUDE 234 BEDS AT THE [facility] Last Admin: 08/09/18 17:26 Dose: 1 mg Diltiazem HCl (Cardizem) 30 mg PO TID COUNTS INCLUDE 234 BEDS AT THE [facility] Last Admin: 08/09/18 17:26 Dose: 30 mg Enoxaparin Sodium (Lovenox) 40 mg SC DAILY COUNTS INCLUDE 234 BEDS AT THE [facility] Last Admin: 08/09/18 09:54 Dose: 40 mg Famotidine (Pepcid) 20 mg PO DAILY COUNTS INCLUDE 234 BEDS AT THE [facility] Last Admin: 08/09/18 09:54 Dose: 20 mg Gabapentin (Neurontin) 100 mg PO TID COUNTS INCLUDE 234 BEDS AT THE [facility] Last Admin: 08/09/18 17:26 Dose: 100 mg Losartan Potassium (Cozaar) 100 mg PO DAILY COUNTS INCLUDE 234 BEDS AT THE [facility] Last Admin: 08/09/18 09:54 Dose: 100 mg Metoprolol Succinate (Toprol Xl) 25 mg PO DAILY COUNTS INCLUDE 234 BEDS AT THE [facility] Last Admin: 08/09/18 14:42 Dose: 25 mg Montelukast Sodium (Singulair) 10 mg PO HS COUNTS INCLUDE 234 BEDS AT THE [facility] Last Admin: 08/08/18 21:04 Dose: 10 mg Simethicone (Mylicon Chew Tab) 80 mg PO Q8H PRN PRN Reason: GI distress Last Admin: 08/09/18 16:20 Dose: 80 mg Temazepam (Restoril) 15 mg PO HS PRN PRN Reason: Insomnia Last Admin: 08/08/18 21:05 Dose: 15 mg Tramadol HCl (Ultram) 50 mg PO Q6 PRN PRN Reason: Pain, severe (8-10) Last Admin: 08/09/18 16:20 Dose: 50 mg - Labs Labs: 08/09/18 11:10 08/09/18 11:10 PT 13.4 SECONDS (9.7-12.2) H 12/16/18 08:24 INR 1.2 08/08/18 08:24 APTT 31 SECONDS (21-34) 08/08/18 08:24 - Constitutional Appears: Well - Head Exam Head Exam: ATRAUMATIC, NORMAL INSPECTION, NORMOCEPHALIC - Eye Exam Eye Exam: EOMI, Normal appearance, PERRL Pupil Exam: NORMAL ACCOMODATION, PERRL - ENT Exam ENT Exam: Mucous Membranes Moist, Normal Exam - Neck Exam Neck Exam: Full ROM, Normal Inspection. absent: Lymphadenopathy - Respiratory Exam Respiratory Exam: Decreased Breath Sounds - Cardiovascular Exam Cardiovascular Exam: REGULAR RHYTHM, +S1, +S2 - GI/Abdominal Exam GI & Abdominal Exam: Soft, Diminished Bowel Sounds - Rectal Exam Rectal Exam: Deferred
--- NOTE | 2018-08-10 07:35 | CP.PCM.PN ---
Subjective - Date & Time of Evaluation Date of Evaluation: 08/10/18 Time of Evaluation: 12:53 - Subjective Subjective: Medicine Note for Dr. Yassine Zuñiga's Service Patient seen and examined at bedside. Patient reported she is having severe abdominal pain causing her to cry. Patient did not allow me to exam her abdomen. Patient had flat affect when expressing her pain. Reported she has been having abdominal pain for 5 + days with inability to eat due to having nausea and vomiting. Reported having a small bowel movement yesterday, but feels constipated. Denied fever, chills, headache, chest pain, shortness of breath, n/v/d, or urinary symptoms. Objective - Vital Signs/Intake and Output Vital Signs (last 24 hours): Temp Pulse Resp BP Pulse Ox 97.9 F 81 20 116/71 97 08/10/18 00:00 08/10/18 04:00 08/10/18 00:00 08/10/18 00:00 08/10/18 00:00 Intake and Output: 08/10/18 08/10/18 06:59 18:59 Intake Total 100 Balance 100 - Medications Medications: Current Medications Aspirin (Aspirin) 325 mg PO DAILY [facility] Last Admin: 08/09/18 09:54 Dose: 325 mg Clonazepam (Klonopin) 1 mg PO TID [facility] Last Admin: 08/09/18 17:26 Dose: 1 mg Diltiazem HCl (Cardizem) 30 mg PO TID [facility] Last Admin: 08/09/18 17:26 Dose: 30 mg Enoxaparin Sodium (Lovenox) 40 mg SC DAILY [facility] Last Admin: 08/09/18 09:54 Dose: 40 mg Famotidine (Pepcid) 20 mg PO DAILY [facility] Last Admin: 08/09/18 09:54 Dose: 20 mg Gabapentin (Neurontin) 100 mg PO TID [facility] Last Admin: 08/09/18 17:26 Dose: 100 mg Losartan Potassium (Cozaar) 100 mg PO DAILY [facility] Last Admin: 08/09/18 09:54 Dose: 100 mg Metoprolol Succinate (Toprol Xl) 25 mg PO DAILY [facility] Last Admin: 08/09/18 14:42 Dose: 25 mg Montelukast Sodium (Singulair) 10 mg PO [facility] Last Admin: 08/09/18 21:34 Dose: 10 mg Simethicone (Mylicon Chew Tab) 80 mg PO Q8H PRN PRN Reason: GI distress Last Admin: 08/09/18 16:20 Dose: 80 mg Temazepam (Restoril) 15 mg PO HS PRN PRN Reason: Insomnia Last Admin: 08/09/18 21:34 Dose: 15 mg Tramadol HCl (Ultram) 50 mg PO Q6 PRN PRN Reason: Pain, severe (8-10) Last Admin: 08/10/18 00:45 Dose: 50 mg - Labs Labs: 08/09/18 11:10 08/09/18 11:10 PT 13.4 SECONDS (9.7-12.2) H 08/08/18 08:24 INR 1.2 08/08/18 08:24 APTT 31 SECONDS (21-34) 08/08/18 08:24 - Constitutional Appears: No Acute Distress - Head Exam Head Exam: NORMAL INSPECTION, NORMOCEPHALIC - Eye Exam Eye Exam: EOMI, Normal appearance, PERRL Pupil Exam: NORMAL ACCOMODATION - ENT Exam ENT Exam: Mucous Membranes Moist, Normal Exam - Respiratory Exam Respiratory Exam: Clear to Ausculation Bilateral, NORMAL BREATHING PATTERN - Cardiovascular Exam Cardiovascular Exam: +S1, +S2 - GI/Abdominal Exam Additional comments: Patient did not allow me to examine abdomen 2/2 to her pain - Extremities Exam Extremities Exam: Normal Inspection. absent: Pedal Edema, Tenderness Assessment and Plan - Assessment and Plan (Free Text) Plan: Chest pain, ACS - RULED OUT History of AVNRT s/p ablation - Cardiology on consult, Dr Lynn, help appreciated; Patient cleared from cardiac perspective -Troponins negative x 3; EKGs: NSR 94 bpm, no acute ST-T wave changes - CXR: no active disease - Continue Cardizem 30mg PO TID, ASA 325mg PO daily - Patient is requesting Metoprolol, HR known to be low on this medication, will monitor off beta monica at this time. Abdominal Pain, nonspecific - GI consulted, Dr Wen, help appreciated - CT abd/pelvis showed No evidence of acute pathology in the abdomen and pelvis. Status post cholecystectomy. No evidence of pancreatitis or appendicitis. Fundal leiomyoma measures 3.5 x 3 centimeter (see full report) - EGD 11/2017 showed Grade B reflux esophagitis, acute gastritis, medium sized hiatal hernia - Repeat EGD 08/10/18 - Gastritis, 2 inflammatory polyps in gastric fundus -Added lactulose for constipation, Carafate added by GI - Pain control with Tramadol 50mg PO TID Hypertension - HCTZ discontinued secondary to hypokalemia - Continue Cozaar 100mg PO daily - Monitor Vitals COPD - Continue Singulair 10mg PO HS GERD - Pepcid 20mg PO daily - Simethicone 80mg BID prn GI Distress Depression/Anxiety - Continue Klonopin 1 tab PO TID Fibroids - Noted on CT Scan - Recommend follow up with SALES CLERK as outpatient GI/DVT ppx - Pepcid 20mg PO daily - Lovenox 40mg SC daily All medical management as per Dr. Yassine Zuñiga, Sandra Funez DO, PGY-2
[2018-08-10] MEDS: Metoprolol Succinate 25 mg XL Tab PO SCH (10:49)
[2018-08-10] MEDS: Enoxaparin 40 mg Syringe SC SCH (10:52)
[2018-08-10] MEDS ORDERED: Propofol 10 mg/ml Inj (20 ML) ONE ×2 (11:31)
[2018-08-10] MEDS ORDERED: Midazolam 2 MG/2 ML VIAL ONE (11:31)
[2018-08-10] MEDS ORDERED: Magnesium Citrate Oral SOL (300 ml) PO ONE (13:00)
[2018-08-10] MEDS: Simethicone 80 mg Chewtab PO PRN (13:07)
--- NOTE | 2018-08-10 14:04 | CP.PCM.PN ---
Subjective - Date & Time of Evaluation Date of Evaluation: 08/10/18 Time of Evaluation: 08:45 - Subjective Subjective: clinically same Objective - Vital Signs/Intake and Output Vital Signs (last 24 hours): Temp Pulse Resp BP Pulse Ox 98.9 F 76 16 137/76 100 08/10/18 12:25 08/10/18 12:25 08/10/18 12:25 08/10/18 12:25 08/10/18 12:25 Intake and Output: 08/10/18 08/10/18 06:59 18:59 Intake Total 100 122.5 Balance 100 122.5 - Medications Medications: Current Medications Aspirin (Aspirin) 325 mg PO DAILY [facility] Last Admin: 08/10/18 10:50 Dose: Not Given Bisacodyl (Dulcolax) 10 mg PO ONCE ONE Stop: 08/10/18 18:16 Clonazepam (Klonopin) 1 mg PO TID [facility] Last Admin: 08/10/18 13:56 Dose: 1 mg Diltiazem HCl (Cardizem) 30 mg PO TID [facility] Last Admin: 08/10/18 13:56 Dose: 30 mg Enoxaparin Sodium (Lovenox) 40 mg SC DAILY [facility] Last Admin: 08/10/18 10:52 Dose: Not Given Famotidine (Pepcid) 20 mg PO DAILY [facility] Last Admin: 08/10/18 10:49 Dose: 20 mg Gabapentin (Neurontin) 100 mg PO TID [facility] Last Admin: 08/10/18 13:56 Dose: 100 mg Dextrose (Dextrose 5% In Water 1000 Ml) 1,000 mls @ 30 mls/hr IV .Q24H [facility] Last Admin: 08/10/18 10:50 Dose: 30 mls/hr Losartan Potassium (Cozaar) 100 mg PO DAILY [facility] Last Admin: 08/10/18 10:49 Dose: 100 mg Metoprolol Succinate (Toprol Xl) 25 mg PO DAILY [facility] Last Admin: 08/10/18 10:49 Dose: 25 mg Montelukast Sodium (Singulair) 10 mg PO HS [facility] Last Admin: 08/09/18 21:34 Dose: 10 mg Simethicone (Mylicon Chew Tab) 80 mg PO Q8H PRN PRN Reason: GI distress Last Admin: 08/10/18 13:07 Dose: 80 mg Sucralfate (Carafate Tab) 1 gm PO [facility] Temazepam (Restoril) 15 mg PO HS PRN PRN Reason: Insomnia Last Admin: 08/09/18 21:34 Dose: 15 mg Tramadol HCl (Ultram) 50 mg PO Q6 PRN PRN Reason: Pain, severe (8-10) Last Admin: 08/10/18 13:07 Dose: 50 mg - Labs Labs: 08/09/18 11:10 08/09/18 11:10 PT 13.4 SECONDS (9.7-12.2) H 08/08/18 08:24 INR 1.2 08/08/18 08:24 APTT 31 SECONDS (21-34) 08/08/18 08:24 - Constitutional Appears: Well - Head Exam Head Exam: ATRAUMATIC, NORMAL INSPECTION, NORMOCEPHALIC - Eye Exam Eye Exam: EOMI, Normal appearance, PERRL Pupil Exam: NORMAL ACCOMODATION, PERRL - ENT Exam ENT Exam: Mucous Membranes Moist, Normal Exam - Neck Exam Neck Exam: Full ROM, Normal Inspection. absent: Lymphadenopathy - Respiratory Exam Respiratory Exam: Decreased Breath Sounds - Cardiovascular Exam Cardiovascular Exam: REGULAR RHYTHM, +S1, +S2 - GI/Abdominal Exam GI & Abdominal Exam: Soft, Diminished Bowel Sounds - Rectal Exam Rectal Exam: Deferred
[2018-08-10 15:54] VITALS: RESP 20
[2018-08-10] MEDS ORDERED: Bisacodyl 5mg EC Tab PO ONE (18:15)
[2018-08-10] MEDS: Pantoprazole 40 mg EC Tab PO SCH (22:17)
[2018-08-10] MEDS: Vitamins A & D Oint UD Foilpak TOP SCH (23:56)
[2018-08-11] MEDS: Vitamins A & D Oint UD Foilpak TOP SCH ×2 (06:43→13:27)
--- NOTE | 2018-08-11 08:32 | CP.PCM.PN ---
Subjective - Date & Time of Evaluation Date of Evaluation: 08/11/18 Time of Evaluation: 08:31 - Subjective Subjective: Medicine Note for Dr. Yassine Zuñiga's Service Patient seen and examined at bedside. Patient continues to have abdominal pain. Denied fever, chills, headache, chest pain, shortness of breath, n/v/d, or urinary symptoms. Objective - Vital Signs/Intake and Output Vital Signs (last 24 hours): Temp Pulse Resp BP Pulse Ox 97.9 F 84 20 113/62 95 08/11/18 08:14 08/11/18 08:14 08/11/18 08:14 08/11/18 08:14 08/11/18 08:14 Intake and Output: 08/11/18 08/11/18 06:59 18:59 Intake Total 120 Balance 120 - Medications Medications: Current Medications Aspirin (Aspirin) 325 mg PO DAILY [facility] Last Admin: 08/10/18 10:50 Dose: Not Given Clonazepam (Klonopin) 1 mg PO TID [facility] Last Admin: 08/10/18 17:33 Dose: 1 mg Diltiazem HCl (Cardizem) 30 mg PO TID [facility] Last Admin: 08/10/18 17:33 Dose: 30 mg Enoxaparin Sodium (Lovenox) 40 mg SC DAILY [facility] Last Admin: 08/10/18 10:52 Dose: Not Given Gabapentin (Neurontin) 100 mg PO TID [facility] Last Admin: 08/10/18 17:33 Dose: 100 mg Dextrose (Dextrose 5% In Water 1000 Ml) 1,000 mls @ 30 mls/hr IV .Q24H [facility] Last Admin: 08/10/18 10:50 Dose: 30 mls/hr Losartan Potassium (Cozaar) 100 mg PO DAILY [facility] Last Admin: 08/10/18 10:49 Dose: 100 mg Metoprolol Succinate (Toprol Xl) 25 mg PO DAILY [facility] Last Admin: 08/10/18 10:49 Dose: 25 mg Montelukast Sodium (Singulair) 10 mg PO HS [facility] Last Admin: 08/10/18 22:17 Dose: 10 mg Pantoprazole Sodium (Protonix Ec Tab) 40 mg PO DAILY [facility] Last Admin: 08/10/18 22:17 Dose: 40 mg Simethicone (Mylicon Chew Tab) 80 mg PO Q8H PRN PRN Reason: GI distress Last Admin: 08/10/18 13:07 Dose: 80 mg Sucralfate (Carafate Tab) 1 gm PO [facility] Last Admin: 08/10/18 22:17 Dose: 1 gm Temazepam (Restoril) 15 mg PO HS PRN PRN Reason: Insomnia Last Admin: 08/09/18 21:34 Dose: 15 mg Tramadol HCl (Ultram) 50 mg PO Q6 PRN PRN Reason: Pain, severe (8-10) Last Admin: 08/11/18 00:03 Dose: 50 mg Vitamin A (Vitamin A & D Oint Ud Foilpak) 1 ea TOP Q8 [facility] Last Admin: 08/11/18 06:43 Dose: 1 ea - Labs Labs: 08/09/18 11:10 08/09/18 11:10 PT 13.4 SECONDS (9.7-12.2) H 08/08/18 08:24 INR 1.2 08/08/18 08:24 APTT 31 SECONDS (21-34) 08/08/18 08:24 - Additional Findings Additional findings: - Constitutional Appears: No Acute Distress - Head Exam Head Exam: NORMAL INSPECTION, NORMOCEPHALIC - Eye Exam Eye Exam: EOMI, Normal appearance, PERRL Pupil Exam: NORMAL ACCOMODATION - ENT Exam ENT Exam: Mucous Membranes Moist, Normal Exam - Respiratory Exam Respiratory Exam: Clear to Ausculation Bilateral, NORMAL BREATHING PATTERN - Cardiovascular Exam Cardiovascular Exam: +S1, +S2 - GI/Abdominal Exam Additional comments: Patient did not allow me to examine abdomen 2/2 to her pain - Extremities Exam Extremities Exam: Normal Inspection. absent: Pedal Edema, Tenderness Assessment and Plan - Assessment and Plan (Free Text) Plan: Abdominal Pain, nonspecific - GI consulted, Dr Wen, help appreciated - CT abd/pelvis showed No evidence of acute pathology in the abdomen and pelvis. Status post cholecystectomy. No evidence of pancreatitis or appendicitis. Fundal leiomyoma measures 3.5 x 3 centimeter (see full report) - EGD 11/2017 showed Grade B reflux esophagitis, acute gastritis, medium sized hiatal hernia - Repeat EGD 08/10/18 - Gastritis, 2 inflammatory polyps in gastric fundus - Added lactulose for constipation, Carafate added by GI - Pain control with Tramadol 50mg PO TID Chest pain, ACS - RULED OUT History of AVNRT s/p ablation - Cardiology on consult, Dr Lynn, help appreciated; Patient cleared from cardiac perspective - Troponins negative x 3; EKGs: NSR 94 bpm, no acute ST-T wave changes - CXR: no active disease - Continue Cardizem 30mg PO TID, ASA 325mg PO daily - Patient is requesting Metoprolol, HR known to be low on this medication, will monitor off beta monica at this time. Hypertension - HCTZ discontinued secondary to hypokalemia - Continue Cozaar 100mg PO daily - Monitor Vitals COPD - Continue Singulair 10mg PO HS GERD - Pepcid 20mg PO daily - Simethicone 80mg BID prn GI Distress Depression/Anxiety - Continue Klonopin 1 tab PO TID Fibroids - Noted on CT Scan - Recommend follow up with SIGNAL PERSON as outpatient GI/DVT ppx - Pepcid 20mg PO daily - Lovenox 40mg SC daily Disposition: As per Dr. Yassine Zuñiga, patient is medically stable for discharge. Patient can follow up as an outpatient for colonoscopy with Dr. Wen. Please follow up with PMD within 1-2 weeks for routine follow up care. Please continue your medications as you were taking before with the addition of Carafate. All medical management as per Dr. Yassine Zuñiga, Sandra Funez DO, PGY-2
[2018-08-11] MEDS: Metoprolol Succinate 25 mg XL Tab PO SCH (09:07)
[2018-08-11] MEDS: Pantoprazole 40 mg EC Tab PO SCH (09:08)
[2018-08-11] MEDS: Enoxaparin 40 mg Syringe SC SCH (09:08)
--- NOTE | 2018-08-11 11:22 | PN ---
DATE: 08/11/2018 LOCATION: 569, bed B. SUBJECTIVE: This is a 57-year-old female seen and examined in rounds today with recurrent episodes of complaints of abdominal pain, postprandial abdominal distention with nausea, mild dyspepsia, but no vomiting and no reported bowel movement. No chest pain, palpitation or significant shortness of breath. The entire chart is reviewed and complete, including but not limited to the most recent lab and radiology study results, current and the previous medication list, current and the previous medical events. Case discussed with the staff at length. The most recent lab results showed blood glucose level of 98 and elevated CA19-9 to 40.2. Abdominal and pelvic CT scan report reevaluated again. As per record, the patient had low hemoglobin and hematocrit with low indices highly suggestive of hypochromic microcytic anemia. PHYSICAL EXAMINATION: GENERAL: A 57-year-old female, awake, alert, oriented. VITAL SIGNS: Afebrile with pulse of 84, respiratory rate 20-22, blood pressure of 120/64. HEENT: Showed pale, dry oral mucoid membrane. Nonicteric sclerae. LUNGS: Few scattered crepitation. Decreased air entry at bases. HEART: Positive S1 and S2. ABDOMEN: Soft with mild generalized moderate to severe tenderness. No mass or organomegaly. No rebound tenderness or guarding. EXTREMITIES: Without edema, clubbing or cyanosis. NEUROLOGIC: No reported new neurological deficits, sensory or motor. IMPRESSION: 1. Hypochromic microcytic anemia, the possibility of lower GI tract source of anemia should be ruled in or out. 2. Peptic ulcer disease with gastritis and what appeared to be inflammatory polyps in the gastric mucosa. 3. Known history of chronic obstructive pulmonary disease, hypertension, severe anxiety syndrome, uterine fibroid lesion as well as diabetes mellitus. SUGGESTIONS: 1. Agree with your plan. 2. The patient to be scheduled for colonoscopy due to her hypochromic microcytic anemia and persistent abdominal pain. Kevin Buenrostro MD
[2018-08-11] MEDS: Simethicone 80 mg Chewtab PO PRN (13:37)
[2018-08-11 15:31] VITALS: BP 127/77; PULSE 80; TEMP 98.1; O2SAT 96
== END 2018-08-11 16:52 | disposition home or self-care (01) ==
LOC: C.ER 07:29 → C.9E 11:33 → C.5S 13:10
PROVIDERS: ADMIT Internal Medicine Nephrology; ATTEND Internal Medicine Nephrology
DX: D50.9 Iron deficiency anemia, unspecified (principal); K29.70 Gastritis, unspecified, without bleeding; K59.00 Constipation, unspecified; K27.9 Peptic ulcer, site unspecified, unspecified as acute or chronic, without hemorrhage or perforation; K21.9 Gastro-esophageal reflux disease without esophagitis; I11.0 Hypertensive heart disease with heart failure; D25.9 Leiomyoma of uterus, unspecified; E78.00 Pure hypercholesterolemia, unspecified; E87.6 Hypokalemia; F32.9 Major depressive disorder, single episode, unspecified; I25.10 Atherosclerotic heart disease of native coronary artery without angina pectoris; E11.649 Type 2 diabetes mellitus with hypoglycemia without coma; I50.9 Heart failure, unspecified; J44.9 Chronic obstructive pulmonary disease, unspecified; Z79.4 Long term (current) use of insulin; Z86.73 Personal history of transient ischemic attack (TIA), and cerebral infarction without residual deficits; Z87.891 Personal history of nicotine dependence; Z95.5 Presence of coronary angioplasty implant and graft; K21.0 Gastro-esophageal reflux disease with esophagitis; K29.00 Acute gastritis without bleeding; K44.9 Diaphragmatic hernia without obstruction or gangrene
CPT/HCPCS: 36415; 71045; 74177; 80053; 81001; 82378; 82948; 83690; 83735; 84100; 84484; 85025; 85610; 85730; 86301; 86304; 87086; 88305; 88342; 93005; 96374; 99285; G0378; J1650; J1885; J2001; J2250; J2270; J2405; J2704; J7030; J7070; Q9967

== ENCOUNTER 2018-08-15 09:52 | Observation (INO) | payer MEDICARE, MEDICAID ==
[2018-08-15 09:52] VITALS: BMI 42.9
[2018-08-15 10:42] LABS: BASO # 0.1 K/uL (0.0-0.2); BASO % 1.1 % (0.0-2.0); EOS # 0.2 K/uL (0.0-0.7); EOS % 1.6 % (0.0-4.0); HEMOGLOBIN 11.9 g/dL (11.0-16.0); LYMPH # 1.8 K/uL (1.0-4.3); LYMPH % 18.7 % (20.0-40.0); MEAN CELL VOLUME 78.8 fL (81.0-99.0); MEAN CORPUSCULAR HEMOGLOBIN 26.2 pg (27.0-31.0); MEAN CORPUSCULAR HGB CONC 33.3 g/dL (33.0-37.0); MEAN PLATELET VOLUME 8.5 fL (7.2-11.7); MONO # 0.5 K/uL (0.0-0.8); MONO % 5.8 % (0.0-10.0); NEUT # 6.9 K/uL (1.8-7.0); NEUT % 72.8 % (50.0-75.0); NRBC % 0.1 % (0.0-2.0); RBC 4.52 Mil/uL (3.80-5.20); RED CELL DISTRIBUTION WIDTH 16.7 % (11.5-14.5); WHITE BLOOD COUNT 9.5 K/uL (4.8-10.8)
--- NOTE | 2018-08-15 10:45 | C.PDOC ---
History Of Present Illness 57 y/o female, with history of HTN, COPD, and CHF, presents to ED complaining of palpitations since earlier today but denies any chest pain, dizziness, or diaphoresis. Patient was recently discharged from the hospital. Time Seen by Provider: 08/15/18 09:54 Chief Complaint (Nursing): Palpitations History Per: Patient History/Exam Limitations: no limitations Onset/Duration Of Symptoms: Hrs Current Symptoms Are (Timing): Still Present Past Medical History Reviewed: Historical Data, Nursing Documentation, Vital Signs Vital Signs: Last Vital Signs Temp 98.1 F 08/15/18 10:06 Pulse 92 H 08/15/18 10:06 Resp 18 08/15/18 10:06 BP 111/76 08/15/18 10:06 Pulse Ox 96 08/15/18 10:06 - Medical History PMH: Anxiety, Arthritis, Atrial Fibrillation, CAD, Cardia Arrhythmia, CHF, COPD, Depression, Diabetes (hypoglycemia), Gastritis, Gall Bladder Disease, HTN, Hypercholesterolemia Denies: Chronic Kidney Disease Surgical History: Cholecystectomy, Coronary Stent (x2) - [facility] Procedures EXCISION OF STOMACH, ENDO, DIAGN (11/25/17) Family History: States: No Known Family Hx - Social History Hx Tobacco Use: Yes (QUIT) Hx Alcohol Use: No Hx Substance Use: No - Immunization History Hx Tetanus Toxoid Vaccination: No Hx Influenza Vaccination: No (ALLERGY) Hx Pneumococcal Vaccination: No (ALLERGY) Review Of Systems Except As Marked, All Systems Reviewed And Found Negative. Constitutional: Negative for: Sweats Cardiovascular: Positive for: Palpitations. Negative for: Chest Pain Neurological: Negative for: Dizziness Physical Exam - Physical Exam Appears: Non-toxic, No Acute Distress Skin: Warm, Dry Head: Atraumatic, Normacephalic Eye(s): bilateral: Normal Inspection, PERRL, EOMI Oral Mucosa: Moist Neck: Normal ROM Chest: Symmetrical Cardiovascular: Rhythm Regular, No Murmur Respiratory: Normal Breath Sounds, No Rales, No Rhonchi, No Wheezing Extremity: No Pedal Edema Extremity: Bilateral: Atraumatic, Normal Color And Temperature, Normal ROM Neurological/Psych: Oriented x3, Normal Speech ED Course And Treatment - Laboratory Results Result Diagrams: 08/15/18 10:30 08/15/18 10:30 ECG Rhythm: Sinus Rhythm ECG Interpretation: Normal Rate From EC O2 Sat by Pulse Oximetry: 96 (RA) Pulse Ox Interpretation: Normal - Radiology CXR: Interpreted by Me CXR Interpretation: No: Infiltrates, Pnemothorax - Other Rad Chest x-ray X-Ray: Read By Radiologist Interpretation: FINDINGS: LUNGS: Clear. PLEURA: No pneumothorax or pleural fluid seen. CARDIOVASCULAR: No aortic atherosclerotic calcification present. Normal. OSSEOUS STRUCTURES: No significant abnormalities. VISUALIZED UPPER ABDOMEN: Normal. OTHER FINDINGS: None. IMPRESSION: No active disease. Medical Decision Making Medical Decision Making: Plan: --EKG --Bloodwork --Chest X-ray Disposition - Disposition Disposition: HOSPITALIZED Disposition Time: 12:12 Condition: STABLE - POA Present On Arrival: None - Clinical Impression Clinical Impression: Chest pain at rest - Scribe Statement The provider has reviewed the documentation as recorded by the Manjulaibjeevan Barron Provider Attestation: All medical record entries made by the Manjulaibe were at my direction and personally dictated by me. I have reviewed the chart and agree that the record accurately reflects my personal performance of the history, physical exam, medical decision making, and the department course for this patient. I have also personally directed, reviewed, and agree with the discharge instructions and disposition.
[2018-08-15 11:00] LABS: ALB/GLOB RATIO 1.2 (1.0-2.1); ALBUMIN 4.2 g/dL (3.5-5.0); BLOOD UREA NITROGEN 14 mg/dL (7-17); CALCIUM 9.5 mg/dl (8.6-10.4)
[2018-08-15 11:17] LABS: ALT/SGPT 24 U/L (9-52); AST/SGOT 36 U/L (14-36)
[2018-08-15 11:27] LABS: GFR NON-AFRICAN AMERICAN > 60
[2018-08-15 11:29] LABS: D DIMER < 200 ng/mlDDU (0-243); INR 1.2; PROTHROMBIN TIME 13.4 SECONDS (9.7-12.2)
[2018-08-15 11:35] LABS: PARTIAL THROMBOPLASTIN TIME 23 SECONDS (21-34)
[2018-08-15] MEDS ORDERED: Nitroglycerin 2% Ointment Foilpak UD TOP STA (11:53)
[2018-08-15 11:54] LABS: BARBITURATES, UR NEGATIVE (NEGATIVE); OPIATES, UR NEGATIVE (NEGATIVE); PHENCYCLIDINE, UR NEGATIVE (NEGATIVE)
[2018-08-15] MEDS ORDERED: Nitroglycerin 2% Ointment Foilpak UD TOP ONE (11:55)
[2018-08-15 12:12] LABS: BENZODIAZEPINES, UR POSITIVE (NEGATIVE)
--- NOTE | 2018-08-15 13:39 | RAD ---
Date of service: 08/15/2018 PROCEDURE: CHEST RADIOGRAPH, 1 VIEW HISTORY: chest pain COMPARISON: 08/08/2018 FINDINGS: LUNGS: Clear. PLEURA: No pneumothorax or pleural fluid seen. CARDIOVASCULAR: No aortic atherosclerotic calcification present. Normal. OSSEOUS STRUCTURES: No significant abnormalities. VISUALIZED UPPER ABDOMEN: Normal. OTHER FINDINGS: None. IMPRESSION: No active disease.
--- NOTE | 2018-08-15 18:45 | CP.PCM.HP ---
Past Patient History - Infectious Disease Hx of Infectious Diseases: None - Tetanus Immunizations Tetanus Immunization: Unknown - Past Medical History & Family History Past Medical History?: Yes - Past Social History Smoking Status: Heavy Smoker > 10 Cigarettes Daily - CARDIAC Hx Atrial Fibrillation: Yes Hx Cardia Arrhythmia: Yes Hx Congestive Heart Failure: Yes Hx Hypercholesterolemia: Yes Hx Hypertension: Yes - PULMONARY Hx Chronic Obstructive Pulmonary Disease (COPD): Yes - NEUROLOGICAL Hx Neurological Disorder: Yes HX Cerebrovascular Accident: Yes Hx Dizziness: Yes - HEENT Hx HEENT Problems: Yes Other/Comment: wears glasses for reading - RENAL Hx Chronic Kidney Disease: No - ENDOCRINE/METABOLIC Hx Endocrine Disorders: Yes Hx Diabetes Mellitus Type 1: Yes Hx Diabetes Mellitus Type 2: Yes - HEMATOLOGICAL/ONCOLOGICAL Hx Blood Disorders: No - INTEGUMENTARY Hx Dermatological Problems: Yes Hx Eczema: Yes - MUSCULOSKELETAL/RHEUMATOLOGICAL Hx Arthritis: Yes - GASTROINTESTINAL Hx Gall Bladder Disease: Yes Hx Gastritis: Yes - GENITOURINARY/GYNECOLOGICAL Hx Genitourinary Disorders: No - PSYCHIATRIC Hx Anxiety: Yes Hx Depression: Yes Hx Substance Use: No - SURGICAL HISTORY Hx Cholecystectomy: Yes Hx Coronary Stent: Yes (x2) - ANESTHESIA Hx Anesthesia: Yes Hx Anesthesia Reactions: No Meds Allergies/Adverse Reactions: Allergies Allergy/AdvReac Type Severity Reaction Status Date / Time verapamil Allergy Verified 08/15/18 10:10 escitalopram [From Lexapro] AdvReac ANAPHYLAXIS Verified 08/15/18 10:10 Flu vaccine Allergy ANAPHYLAXIS Uncoded 08/15/18 10:10 pnuemonia vaccine Allergy ANAPHYLAXIS Uncoded 08/15/18 10:10 steroids Allergy Uncoded 08/15/18 10:10 wool Allergy ANAPHYLAXIS Uncoded 08/15/18 10:10 Physical Exam - Constitutional Appears: Well - Head Exam Head Exam: ATRAUMATIC, NORMAL INSPECTION, NORMOCEPHALIC - Eye Exam Eye Exam: EOMI, Normal appearance, PERRL Pupil Exam: NORMAL ACCOMODATION, PERRL - ENT Exam ENT Exam: Mucous Membranes Moist, Normal Exam - Neck Exam Neck exam: Positive for: Normal Inspection - Respiratory Exam Respiratory Exam: Decreased Breath Sounds - Cardiovascular Exam Cardiovascular Exam: REGULAR RHYTHM, +S1, +S2 - GI/Abdominal Exam GI & Abdominal Exam: Diminished Bowel Sounds, Soft - Rectal Exam Rectal Exam: Deferred Results - Vital Signs Recent Vital Signs: Last Vital Signs Temp 97.9 F 08/15/18 15:50 Pulse 97 H 08/15/18 15:50 Resp 16 08/15/18 15:52 BP 120/81 08/15/18 15:50 Pulse Ox 95 08/15/18 15:50 - Labs Result Diagrams: 08/15/18 10:30 08/15/18 10:30 Labs: Laboratory Results - last 24 hr 08/15/18 08/15/18 08/15/18 10:30 10:30 10:32 WBC 9.5 RBC 4.52 Hgb 11.9 Hct 35.6 MCV 78.8 L MCH 26.2 L MCHC 33.3 RDW 16.7 H Plt Count 522 H D MPV 8.5 Neut % (Auto) 72.8 Lymph % (Auto) 18.7 L Whitman % (Auto) 5.8 Eos % (Auto) 1.6 Baso % (Auto) 1.1 Neut # (Auto) 6.9 Lymph # (Auto) 1.8 Whitman # (Auto) 0.5 Eos # (Auto) 0.2 Baso # (Auto) 0.1 PT INR APTT D-Dimer, Quantitative Sodium 141 Potassium 3.9 Chloride 105 Carbon Dioxide 24 Anion Gap 16 BUN 14 Creatinine 0.8 Est GFR ( Amer) > 60 Est GFR (Non-Af Amer) > 60 POC Glucose (mg/dL) 126 H Random Glucose 129 H Calcium 9.5 Total Bilirubin 0.5 AST 36 D ALT 24 Alkaline Phosphatase 112 Troponin I < 0.0120 Total Protein 7.9 Albumin 4.2 Globulin 3.7 Albumin/Globulin Ratio 1.2 Urine Opiates Screen Urine Methadone Screen Ur Barbiturates Screen Ur Phencyclidine Scrn Ur Amphetamines Screen U Benzodiazepines Scrn U Oth Cocaine Metabols U Cannabinoids Screen 08/15/18 08/15/18 08/15/18 10:57 11:25 13:38 WBC RBC Hgb Hct MCV MCH MCHC RDW Plt Count MPV Neut % (Auto) Lymph % (Auto) Whitman % (Auto) Eos % (Auto) Baso % (Auto) Neut # (Auto) Lymph # (Auto) Whitman # (Auto) Eos # (Auto) Baso # (Auto) PT 13.4 H INR 1.2 APTT 23 D-Dimer, Quantitative < 200 Sodium Potassium Chloride Carbon Dioxide Anion Gap BUN Creatinine Est GFR ( Amer) Est GFR (Non-Af Amer) POC Glucose (mg/dL) 135 H Random Glucose Calcium Total Bilirubin AST ALT Alkaline Phosphatase Troponin I Total Protein Albumin Globulin Albumin/Globulin Ratio Urine Opiates Screen Negative Urine Methadone Screen Negative Ur Barbiturates Screen Negative Ur Phencyclidine Scrn Negative Ur Amphetamines Screen Negative U Benzodiazepines Scrn Positive U Oth Cocaine Metabols Negative U Cannabinoids Screen Negative
[2018-08-15 21:29] LABS: CK-MB 0.23 ng/mL (0.0-3.38)
[2018-08-16 08:11] LABS: CK-MB < 0.22 ng/mL (0.0-3.38)
--- NOTE | 2018-08-16 09:04 | CP.PCM.PN ---
Subjective - Date & Time of Evaluation Date of Evaluation: 08/16/18 Time of Evaluation: 09:03 - Subjective Subjective: PGY2 Medicine Note for Dr. Raz Zuñiga Patient seen and examined this morning at bedside. Patient has a past medical history of HTN, COPD, AVNRT (s/p ablation) and CHF presented back to the emergency room yesterday with a complaint of palpitations. She was denied any chest pain, diaphoresis or shortness of breath. Patient is visibly upset this morning, crying about her medical conditions. She states she is tired of being in the hospital and would like to just go home. She is currently without symptoms, but states that her symptoms always occur in the morning time, either causing her to wake up or shortly after waking up. ROS is negative at this time. Objective - Vital Signs/Intake and Output Vital Signs (last 24 hours): Temp Pulse Resp BP Pulse Ox 98.1 F 96 H 20 100/72 94 L 08/16/18 08:52 08/16/18 08:52 08/16/18 08:52 08/16/18 08:52 08/16/18 08:52 - Medications Medications: Current Medications Aspirin (Aspirin) 325 mg PO DAILY [facility] Clonazepam (Klonopin) 1 mg PO TID [facility] Diltiazem HCl (Cardizem) 30 mg PO TID [facility] Enoxaparin Sodium (Lovenox) 50 mg SC DAILY [facility] Gabapentin (Neurontin) 100 mg PO TID [facility] Losartan Potassium (Cozaar) 100 mg PO DAILY [facility] Metoprolol Succinate (Toprol Xl) 25 mg PO DAILY [facility] Montelukast Sodium (Singulair) 10 mg PO DAILY [facility] Pantoprazole Sodium (Protonix Ec Tab) 40 mg PO DAILY [facility] Sucralfate (Carafate Tab) 1 gm PO ACBHS [facility] Last Admin: 08/16/18 08:04 Dose: 1 gm Temazepam (Restoril) 15 mg PO HS PRN PRN Reason: Insomnia Last Admin: 08/15/18 23:04 Dose: 15 mg - Labs Labs: 08/15/18 10:30 08/15/18 10:30 PT 13.4 SECONDS (9.7-12.2) H 08/15/18 10:57 INR 1.2 08/15/18 10:57 APTT 23 SECONDS (21-34) 08/15/18 10:57 - Constitutional Appears: Non-toxic, No Acute Distress, Agitated - Head Exam Head Exam: ATRAUMATIC, NORMOCEPHALIC - Eye Exam Eye Exam: Normal appearance - ENT Exam ENT Exam: Mucous Membranes Moist - Neck Exam Neck Exam: absent: Lymphadenopathy - Respiratory Exam Respiratory Exam: Clear to Ausculation Bilateral, NORMAL BREATHING PATTERN. absent: Accessory Muscle Use, Rales, Rhonchi, Wheezes, Respiratory Distress - GI/Abdominal Exam GI & Abdominal Exam: Soft. absent: Distended, Firm, Guarding, Rigid, Tenderness Additional comments: obese - Extremities Exam Extremities Exam: absent: Calf Tenderness, Pedal Edema - Neurological Exam Neurological Exam: Alert, Awake, Oriented x3 - Psychiatric Exam Psychiatric exam: Agitated, Anxious - Skin Skin Exam: Dry, Warm Assessment and Plan - Assessment and Plan (Free Text) Plan: Palpitations History of AVNRT s/p ablation - Cardiology on consult, Dr Lynn, help appreciated * follow up recs - EKG 08/15 - Normal Sinus Rhythm at 96bpm, normal axis, no acute ST segment changes - normal ekg - CXR 08/15 - no active disease Medications: * Cardizem 30mg PO TID * ASA 325mg PO daily * Metoprolol Succ 25mg PO daily Hypertension - Continue Cozaar 100mg PO daily - Monitor Vitals COPD - Continue Singulair 10mg PO HS GERD - Protonix 40mg PO daily - Sucralfate 1gm PO ACBHS - Simethicone 80mg BID prn GI Distress Depression/Anxiety - Klonopin 1 tab PO TID - Temazepam 15mg PO HS prn Fibroids - Noted on CT Scan - Recommend follow up with [facility] as outpatient GI/DVT ppx - Protonix 40mg PO daily - Lovenox 50mg SC daily All medical management as per Vimal Mullen Mazin PGY-2
[2018-08-16] MEDS: Enoxaparin 60 mg Syringe SC SCH (09:46)
[2018-08-16] MEDS: Pantoprazole 40 mg EC Tab PO SCH (09:46)
[2018-08-16] MEDS: Metoprolol Succinate 25 mg XL Tab PO SCH (09:47)
[2018-08-16] MEDS ORDERED: Enoxaparin 40 mg Syringe SC SCH (10:00)
--- NOTE | 2018-08-16 15:12 | CP.PCM.CON ---
History of Present Illness - History of Present Illness History of Present Illness: 57 year old female, av ablation several years ago, and since then, countless admissions for chest pain and palpitations. Extensive work over many admissions, both here and at [facility] have be4en negative. pt was sen home for [facility] 10 days ago, and admitted here and then sent home. Now dmitted again with similar complaint, palpitations. Pt had recent EGD with GI. TNI negative, ecg normal. A review of telemetry strips reveal sinus tachycardia at times. Pt is on a combo of Cardizem and metoprolol, and other regimens have been tried. Pt's bp is too low to increase meds. Review of Systems - Review of Systems All systems: reviewed and no additional remarkable complaints except (as abov.e) Past Patient History - Infectious Disease Hx of Infectious Diseases: None - Tetanus Immunizations Tetanus Immunization: Unknown - Past Medical History & Family History Past Medical History?: Yes - Past Social History Smoking Status: Heavy Smoker > 10 Cigarettes Daily - CARDIAC Hx Atrial Fibrillation: Yes Hx Cardia Arrhythmia: Yes Hx Congestive Heart Failure: Yes Hx Hypercholesterolemia: Yes Hx Hypertension: Yes - PULMONARY Hx Chronic Obstructive Pulmonary Disease (COPD): Yes - NEUROLOGICAL Hx Neurological Disorder: Yes HX Cerebrovascular Accident: Yes Hx Dizziness: Yes - HEENT Hx HEENT Problems: Yes Other/Comment: wears glasses for reading - RENAL Hx Chronic Kidney Disease: No - ENDOCRINE/METABOLIC Hx Endocrine Disorders: Yes Hx Diabetes Mellitus Type 1: Yes Hx Diabetes Mellitus Type 2: Yes - HEMATOLOGICAL/ONCOLOGICAL Hx Blood Disorders: No - INTEGUMENTARY Hx Dermatological Problems: Yes Hx Eczema: Yes - MUSCULOSKELETAL/RHEUMATOLOGICAL Hx Arthritis: Yes - GASTROINTESTINAL Hx Gall Bladder Disease: Yes Hx Gastritis: Yes - GENITOURINARY/GYNECOLOGICAL Hx Genitourinary Disorders: No - PSYCHIATRIC Hx Anxiety: Yes Hx Depression: Yes Hx Substance Use: No - SURGICAL HISTORY Hx Cholecystectomy: Yes Hx Coronary Stent: Yes (x2) - ANESTHESIA Hx Anesthesia: Yes Hx Anesthesia Reactions: No Meds Allergies/Adverse Reactions: Allergies Allergy/AdvReac Type Severity Reaction Status Date / Time verapamil Allergy Verified 08/15/18 10:10 escitalopram [From Lexapro] AdvReac ANAPHYLAXIS Verified 08/15/18 10:10 Flu vaccine Allergy ANAPHYLAXIS Uncoded 08/15/18 10:10 pnuemonia vaccine Allergy ANAPHYLAXIS Uncoded 08/15/18 10:10 steroids Allergy Uncoded 08/15/18 10:10 wool Allergy ANAPHYLAXIS Uncoded 08/15/18 10:10 - Medications Medications: Current Medications Aspirin (Aspirin) 325 mg PO DAILY [facility] Last Admin: 08/16/18 09:47 Dose: 325 mg Clonazepam (Klonopin) 1 mg PO TID [facility] Last Admin: 08/16/18 14:19 Dose: 1 mg Diltiazem HCl (Cardizem) 30 mg PO TID [facility] Last Admin: 08/16/18 14:20 Dose: Not Given Enoxaparin Sodium (Lovenox) 50 mg SC DAILY [facility] Last Admin: 08/16/18 09:46 Dose: 50 mg Gabapentin (Neurontin) 100 mg PO TID [facility] Last Admin: 08/16/18 14:19 Dose: 100 mg Losartan Potassium (Cozaar) 100 mg PO DAILY [facility] Last Admin: 08/16/18 09:45 Dose: 100 mg Metoprolol Succinate (Toprol Xl) 25 mg PO DAILY [facility] Last Admin: 08/16/18 09:47 Dose: 25 mg Montelukast Sodium (Singulair) 10 mg PO [facility] Ondansetron HCl (Zofran Inj) 4 mg IVP Q6H PRN PRN Reason: Nausea/Vomiting Pantoprazole Sodium (Protonix Ec Tab) 40 mg PO DAILY [facility] Last Admin: 08/16/18 09:46 Dose: 40 mg Sucralfate (Carafate Tab) 1 gm PO ACBHS [facility] Last Admin: 08/16/18 08:04 Dose: 1 gm Temazepam (Restoril) 15 mg PO HS PRN PRN Reason: Insomnia Last Admin: 08/15/18 23:04 Dose: 15 mg Physical Exam - Constitutional Appears: Well - Head Exam Head Exam: ATRAUMATIC - ENT Exam ENT Exam: Mucous Membranes Moist - Neck Exam Neck exam: Positive for: Normal Inspection - Respiratory Exam Respiratory Exam: Clear to Auscultation Bilateral - Cardiovascular Exam Cardiovascular Exam: REGULAR RHYTHM - GI/Abdominal Exam GI & Abdominal Exam: Normal Bowel Sounds - Exam External exam: NORMAL EXTERNAL EXAM - Extremities Exam Extremities exam: Positive for: normal inspection - Back Exam Back exam: NORMAL INSPECTION - Neurological Exam Neurological exam: Alert, Oriented x3, Reflexes Normal - Psychiatric Exam Psychiatric exam: Normal Affect, Normal Mood Additional comments: When told that results are normal, patient becomes tearful. - Skin Skin Exam: Normal Color Results - Vital Signs Recent Vital Signs: Last Vital Signs Temp 98.1 F 08/16/18 08:52 Pulse 87 08/16/18 14:00 Resp 20 08/16/18 08:52 BP 135/70 08/16/18 14:00 Pulse Ox 94 L 08/16/18 12:11 - Labs Result Diagrams: 08/15/18 10:30 08/15/18 10:30 Labs: Laboratory Results - last 24 hr 08/15/18 08/15/18 08/15/18 18:54 21:02 21:55 POC Glucose (mg/dL) 158 H 96 Total Creatine Kinase 24 L CK-MB (Mass) 0.23 Troponin I < 0.0120 08/16/18 08/16/18 08/16/18 06:45 07:30 11:46 POC Glucose (mg/dL) 120 H 121 H Total Creatine Kinase 29 L CK-MB (Mass) < 0.22 Troponin I < 0.0120 - EKG Data EKG Interpreted by: Myself EKG shows normal: Sinus rhythm (normal ecg) Assessment & Plan - Assessment and Plan (Free Text) Assessment: 1. Contary to Er physician's note, this patient does not have chf and has never had chf. 2. No h/o cad, and tni ecg are normal. 3. p[t has nsr or s tach, and bp too low to increase meds. 4. Pt to f/u with Dr Alford regarding symptomatic sinus tachycardia.
--- NOTE | 2018-08-16 17:52 | CP.PCM.PN ---
Subjective - Date & Time of Evaluation Date of Evaluation: 08/16/18 Time of Evaluation: 11:15 - Subjective Subjective: clinically same Objective - Vital Signs/Intake and Output Vital Signs (last 24 hours): Temp Pulse Resp BP Pulse Ox 97.9 F 85 20 113/77 96 08/16/18 15:24 08/16/18 17:33 08/16/18 17:30 08/16/18 17:30 08/16/18 17:30 Intake and Output: 08/16/18 08/16/18 06:59 18:59 Intake Total 720 Balance 720 - Medications Medications: Current Medications Aspirin (Aspirin) 325 mg PO DAILY [facility] Last Admin: 08/16/18 09:47 Dose: 325 mg Clonazepam (Klonopin) 1 mg PO TID [facility] Last Admin: 08/16/18 14:19 Dose: 1 mg Diltiazem HCl (Cardizem) 30 mg PO TID [facility] Last Admin: 08/16/18 17:28 Dose: 30 mg Enoxaparin Sodium (Lovenox) 50 mg SC DAILY [facility] Last Admin: 08/16/18 09:46 Dose: 50 mg Gabapentin (Neurontin) 100 mg PO TID [facility] Last Admin: 08/16/18 17:28 Dose: 100 mg Losartan Potassium (Cozaar) 100 mg PO DAILY [facility] Last Admin: 08/16/18 09:45 Dose: 100 mg Metoprolol Succinate (Toprol Xl) 25 mg PO DAILY [facility] Last Admin: 08/16/18 09:47 Dose: 25 mg Montelukast Sodium (Singulair) 10 mg PO HS [facility] Ondansetron HCl (Zofran Inj) 4 mg IVP Q6H PRN PRN Reason: Nausea/Vomiting Pantoprazole Sodium (Protonix Ec Tab) 40 mg PO DAILY [facility] Last Admin: 08/16/18 09:46 Dose: 40 mg Sucralfate (Carafate Tab) 1 gm PO ACBHS [facility] Last Admin: 08/16/18 08:04 Dose: 1 gm Temazepam (Restoril) 15 mg PO HS PRN PRN Reason: Insomnia Last Admin: 08/15/18 23:04 Dose: 15 mg - Labs Labs: 08/15/18 10:30 08/15/18 10:30 PT 13.4 SECONDS (9.7-12.2) H 08/15/18 10:57 INR 1.2 08/15/18 10:57 APTT 23 SECONDS (21-34) 08/15/18 10:57 - Constitutional Appears: Well - Head Exam Head Exam: ATRAUMATIC, NORMAL INSPECTION, NORMOCEPHALIC - Eye Exam Eye Exam: EOMI, Normal appearance, PERRL Pupil Exam: NORMAL ACCOMODATION, PERRL - ENT Exam ENT Exam: Mucous Membranes Moist, Normal Exam - Neck Exam Neck Exam: Full ROM, Normal Inspection. absent: Lymphadenopathy - Respiratory Exam Respiratory Exam: Decreased Breath Sounds - Cardiovascular Exam Cardiovascular Exam: REGULAR RHYTHM, +S1, +S2 - GI/Abdominal Exam GI & Abdominal Exam: Soft, Diminished Bowel Sounds - Rectal Exam Rectal Exam: Deferred
--- NOTE | 2018-08-17 08:36 | CARD ---
APPROVED REPORT Date of service: 08/15/2018 EKG Measurement Heart [id number] [id number] <Conclusion> Normal sinus rhythm Normal ECG
[2018-08-17] MEDS: Enoxaparin 60 mg Syringe SC SCH (09:52)
[2018-08-17] MEDS: Pantoprazole 40 mg EC Tab PO SCH (09:53)
[2018-08-17] MEDS: Metoprolol Succinate 25 mg XL Tab PO SCH (09:54)
--- NOTE | 2018-08-17 20:44 | CP.PCM.PN ---
Subjective - Date & Time of Evaluation Date of Evaluation: 08/17/18 Time of Evaluation: 10:30 - Subjective Subjective: clinically same Objective - Vital Signs/Intake and Output Vital Signs (last 24 hours): Temp Pulse Resp BP Pulse Ox 97.9 F 86 20 105/71 96 08/17/18 15:23 08/17/18 17:46 08/17/18 15:23 08/17/18 17:46 08/17/18 15:23 Intake and Output: 08/17/18 08/18/18 18:59 06:59 Intake Total 900 Balance 900 - Medications Medications: Current Medications Aspirin (Aspirin) 325 mg PO DAILY [facility] Last Admin: 08/17/18 09:53 Dose: 325 mg Clonazepam (Klonopin) 1 mg PO TID [facility] Last Admin: 08/17/18 13:30 Dose: 1 mg Diltiazem HCl (Cardizem) 30 mg PO TID [facility] Last Admin: 08/17/18 17:48 Dose: 30 mg Enoxaparin Sodium (Lovenox) 50 mg SC DAILY [facility] Last Admin: 08/17/18 09:52 Dose: 50 mg Gabapentin (Neurontin) 100 mg PO TID [facility] Last Admin: 08/17/18 17:48 Dose: 100 mg Losartan Potassium (Cozaar) 100 mg PO DAILY [facility] Last Admin: 08/17/18 09:53 Dose: 100 mg Metoprolol Succinate (Toprol Xl) 25 mg PO DAILY [facility] Last Admin: 08/17/18 09:54 Dose: 25 mg Montelukast Sodium (Singulair) 10 mg PO HS [facility] Last Admin: 08/16/18 21:50 Dose: 10 mg Ondansetron HCl (Zofran Inj) 4 mg IVP Q6H PRN PRN Reason: Nausea/Vomiting Last Admin: 08/17/18 18:21 Dose: 4 mg Pantoprazole Sodium (Protonix Ec Tab) 40 mg PO DAILY [facility] Last Admin: 08/17/18 09:53 Dose: 40 mg Sucralfate (Carafate Tab) 1 gm PO ACBHS [facility] Last Admin: 08/17/18 08:28 Dose: 1 gm Temazepam (Restoril) 15 mg PO HS PRN PRN Reason: Insomnia Last Admin: 08/16/18 23:00 Dose: 15 mg - Labs Labs: 08/15/18 10:30 08/15/18 10:30 PT 13.4 SECONDS (9.7-12.2) H 08/15/18 10:57 INR 1.2 08/15/18 10:57 APTT 23 SECONDS (21-34) 08/15/18 10:57 - Constitutional Appears: Well - Head Exam Head Exam: ATRAUMATIC, NORMAL INSPECTION, NORMOCEPHALIC - Eye Exam Eye Exam: EOMI, Normal appearance, PERRL Pupil Exam: NORMAL ACCOMODATION, PERRL - ENT Exam ENT Exam: Mucous Membranes Moist, Normal Exam - Neck Exam Neck Exam: Full ROM, Normal Inspection. absent: Lymphadenopathy - Respiratory Exam Respiratory Exam: Decreased Breath Sounds - Cardiovascular Exam Cardiovascular Exam: REGULAR RHYTHM, +S1, +S2 - GI/Abdominal Exam GI & Abdominal Exam: Soft, Diminished Bowel Sounds - Rectal Exam Rectal Exam: Deferred
[2018-08-18] MEDS: Pantoprazole 40 mg EC Tab PO SCH (09:42)
[2018-08-18] MEDS: Metoprolol Succinate 25 mg XL Tab PO SCH (09:42)
[2018-08-18] MEDS: Enoxaparin 60 mg Syringe SC SCH (09:43)
--- NOTE | 2018-08-18 17:12 | CP.PCM.PN ---
Subjective - Date & Time of Evaluation Date of Evaluation: 08/18/18 Time of Evaluation: 11:30 - Subjective Subjective: clinically same Objective - Vital Signs/Intake and Output Vital Signs (last 24 hours): Temp Pulse Resp BP Pulse Ox 97.8 F 79 18 119/80 97 08/18/18 16:41 08/18/18 16:41 08/18/18 16:41 08/18/18 16:41 08/18/18 16:41 Intake and Output: 08/18/18 08/18/18 06:59 18:59 Intake Total 510 450 Balance 510 450 - Medications Medications: Current Medications Aspirin (Aspirin) 325 mg PO DAILY [facility] Last Admin: 08/18/18 09:42 Dose: 325 mg Clonazepam (Klonopin) 1 mg PO BID [facility] Diltiazem HCl (Cardizem Cd) 120 mg PO DAILY [facility] Enoxaparin Sodium (Lovenox) 50 mg SC DAILY [facility] Last Admin: 08/18/18 09:43 Dose: 50 mg Gabapentin (Neurontin) 100 mg PO TID [facility] Last Admin: 08/18/18 13:55 Dose: 100 mg Hydroxyzine HCl (Atarax) 25 mg PO TID [facility] Last Admin: 08/18/18 15:03 Dose: 25 mg Losartan Potassium (Cozaar) 100 mg PO DAILY [facility] Last Admin: 08/18/18 09:43 Dose: 100 mg Metoprolol Succinate (Toprol Xl) 25 mg PO DAILY [facility] Last Admin: 08/18/18 09:42 Dose: 25 mg Montelukast Sodium (Singulair) 10 mg PO HS [facility] Last Admin: 08/17/18 22:03 Dose: 10 mg Ondansetron HCl (Zofran Inj) 4 mg IVP Q6H PRN PRN Reason: Nausea/Vomiting Last Admin: 08/17/18 18:21 Dose: 4 mg Pantoprazole Sodium (Protonix Ec Tab) 40 mg PO DAILY [facility] Last Admin: 08/18/18 09:42 Dose: 40 mg Sucralfate (Carafate Tab) 1 gm PO ACBHS [facility] Last Admin: 08/18/18 06:50 Dose: 1 gm Temazepam (Restoril) 15 mg PO HS PRN PRN Reason: Insomnia Last Admin: 08/17/18 23:13 Dose: 15 mg - Labs Labs: 08/15/18 10:30 08/15/18 10:30 PT 13.4 SECONDS (9.7-12.2) H 08/15/18 10:57 INR 1.2 08/15/18 10:57 APTT 23 SECONDS (21-34) 08/15/18 10:57 - Constitutional Appears: Well - Head Exam Head Exam: ATRAUMATIC, NORMAL INSPECTION, NORMOCEPHALIC - Eye Exam Eye Exam: EOMI, Normal appearance, PERRL Pupil Exam: NORMAL ACCOMODATION, PERRL - ENT Exam ENT Exam: Mucous Membranes Moist, Normal Exam - Neck Exam Neck Exam: Full ROM, Normal Inspection. absent: Lymphadenopathy - Respiratory Exam Respiratory Exam: Decreased Breath Sounds - Cardiovascular Exam Cardiovascular Exam: REGULAR RHYTHM, +S1, +S2 - GI/Abdominal Exam GI & Abdominal Exam: Soft, Diminished Bowel Sounds - Rectal Exam Rectal Exam: Deferred
[2018-08-18] MEDS: diltiaZEM 120 mg/24 Hours CD Cap PO SCH (18:25)
[2018-08-19 00:48] VITALS: RESP 20
--- NOTE | 2018-08-19 01:30 | PCM.PSYCH ---
Initial Psychiatric Evaluation - Initial Psychiatric Evaluation Type of Admission: Voluntary Legal Status: Capacity Chief Complaint (in patient's own words): I feel anxious.' History of Present Illness and Precipitating Events: Patient is a 58 years old -Chinese female who came to the ED with chest pain and tachycardia. Today psychiatry was consulted. Patient reports depressed mood, anxiety and panic attacks. However she denies any feelings of hopelessness or helplessness. She denies any suicidal ideation or any homicidal ideation. She denies any auditory hallucinations or any paranoia. She denies any drinking or any substance abuse. Current Medications: Active Medications Generic Name Dose Route Start Last Admin Trade Name Freq PRN Reason Stop Dose Admin Aspirin 325 mg 08/16/18 10:00 08/18/18 09:42 Aspirin PO 325 mg DAILY ANTONIA Administration Clonazepam 1 mg 08/18/18 18:00 08/18/18 18:25 Klonopin PO 1 mg BID ANTONIA Administration Diltiazem HCl 120 mg 08/18/18 16:00 08/18/18 18:25 Cardizem Cd PO 120 mg DAILY ANTONIA Administration Enoxaparin Sodium 50 mg 08/16/18 10:00 08/18/18 09:43 Lovenox SC 50 mg DAILY ANTONIA Administration Gabapentin 100 mg 08/16/18 10:00 08/18/18 18:25 Neurontin PO 100 mg TID ANTONIA Administration Hydroxyzine HCl 25 mg 08/18/18 14:24 08/18/18 22:23 Atarax PO 25 mg TID ANTONIA Administration Lactulose 20 gm 08/18/18 20:31 08/18/18 22:26 Enulose PO 20 gm HS PRN Administration Constipation Losartan Potassium 100 mg 08/16/18 10:00 08/18/18 09:43 Cozaar PO 100 mg DAILY ANTONIA Administration Metoprolol Succinate 25 mg 08/16/18 10:00 08/18/18 09:42 Toprol Xl PO 25 mg DAILY ANTONIA Administration Montelukast Sodium 10 mg 08/16/18 22:00 08/18/18 22:23 Singulair PO 10 mg HS ANTONIA Administration Ondansetron HCl 4 mg 08/16/18 10:00 08/17/18 18:21 Zofran Inj IVP 4 mg Q6H PRN Administration Nausea/Vomiting Pantoprazole Sodium 40 mg 08/16/18 10:00 08/18/18 09:42 Protonix Ec Tab PO 40 mg DAILY ANTONIA Administration Sucralfate 1 gm 08/15/18 22:00 08/18/18 22:23 Carafate Tab PO 1 gm ACBHS ANTONIA Administration Temazepam 15 mg 08/15/18 18:45 08/17/18 23:13 Restoril PO 15 mg HS PRN Administration Insomnia Past Psychiatric History - Past Psychiatric History Previous Treatment History: None Pertinent Medical Hx (Current Medical&Sleep Prob, Allergies): Allergies Allergy/AdvReac Type Severity Reaction Status Date / Time verapamil Allergy Verified 08/15/18 10:10 escitalopram [From Lexapro] AdvReac ANAPHYLAXIS Verified 08/15/18 10:10 Flu vaccine Allergy ANAPHYLAXIS Uncoded 08/15/18 10:10 pnuemonia vaccine Allergy ANAPHYLAXIS Uncoded 08/15/18 10:10 steroids Allergy Uncoded 08/15/18 10:10 wool Allergy ANAPHYLAXIS Uncoded 08/15/18 10:10 Montelukast [Singulair] 10 mg PO DAILY #30 01/14/17 clonazePAM [Klonopin] 1 mg PO TID tab 01/14/17 Omeprazole 20 mg PO DAILY #30 capsule. 12/02/17 Gabapentin [Neurontin] 100 mg PO TID #90 cap 01/16/18 diltiaZEM [Cardizem] 30 mg PO TID 04/12/18 Metoprolol 25 mg PO DAILY 08/08/18 Aspirin 325 mg PO DAILY tab 08/11/18 Losartan [Cozaar] 100 mg PO DAILY tab 08/11/18 Sucralfate [Carafate Tab] 1 gm PO ACBHS 30 Days tab 08/11/18 Temazepam [Restoril] 15 mg PO HS PRN cap 08/11/18 Review of Systems - Review of Systems All systems: reviewed and no additional remarkable complaints except - Psychiatric Psychiatric: Anxiety, Irritability. absent: Suicidal Ideation Mental Status Examination - Personal Presentation Personal Presentation: Looks stated age - Affect Affect: Constricted - Motor Activity Motor Activity: Calm - Reliability in Providing Information Reliability in Providing Information: Fair - Speech Speech: Organized - Mood Mood: Anxious - Formal Thought Process Formal Thought Process: No Impairment - Obsessions/Compulsions Compulsions: No - Cognitive Functions Orientation: Person, Place, Situation, Time Sensorium: Alert Attention/Concentration: Attentive Abstract Thinking: [place] Estimate of Intelligence: Below average Judgement: Imparied, as evidence by: Poor judgement, Intact, as evidence by: Insight regarding need for hospitalization - Risk Risk: Diminished functioning - Limitations Limitations: Living alone DSM 5 DX - DSM 5 DSM 5 Diagnosis: Generalized Anxiety Disorder - Recommended/Plan of Treatment Treatment Recommendations and Plan of Treatment: Pt psych stable and clear
[2018-08-19] MEDS ORDERED: diltiaZEM 120 mg/24 Hours CD Cap PO SCH (10:00)
[2018-08-19] MEDS: Enoxaparin 60 mg Syringe SC SCH (10:10)
[2018-08-19] MEDS: diltiaZEM 120 mg/24 Hours CD Cap PO SCH (10:10)
[2018-08-19] MEDS: Metoprolol Succinate 25 mg XL Tab PO SCH (10:10)
[2018-08-19] MEDS: Pantoprazole 40 mg EC Tab PO SCH (10:10)
--- NOTE | 2018-08-19 15:17 | CP.PCM.PN ---
Subjective - Date & Time of Evaluation Date of Evaluation: 08/19/18 Time of Evaluation: 10:30 - Subjective Subjective: clinically same Objective - Vital Signs/Intake and Output Vital Signs (last 24 hours): Temp Pulse Resp BP Pulse Ox 98.3 F 80 20 106/60 96 08/19/18 07:00 08/19/18 07:00 08/19/18 07:00 08/19/18 07:00 08/19/18 07:45 Intake and Output: 08/19/18 08/19/18 06:59 18:59 Intake Total 100 Balance 100 - Medications Medications: Current Medications Aspirin (Aspirin) 325 mg PO DAILY [facility] Last Admin: 08/19/18 10:17 Dose: 325 mg Clonazepam (Klonopin) 0.5 mg PO BID [facility] Diltiazem HCl (Cardizem Cd) 120 mg PO DAILY [facility] Last Admin: 08/19/18 10:10 Dose: 120 mg Enoxaparin Sodium (Lovenox) 50 mg SC DAILY [facility] Last Admin: 08/19/18 10:10 Dose: 50 mg Gabapentin (Neurontin) 300 mg PO TID [facility] Hydroxyzine HCl (Atarax) 25 mg PO TID [facility] Last Admin: 08/19/18 10:17 Dose: 25 mg Lactulose (Enulose) 20 gm PO HS PRN PRN Reason: Constipation Last Admin: 08/18/18 22:26 Dose: 20 gm Lorazepam (Ativan) 1 mg PO Q6 PRN PRN Reason: Anxiety Losartan Potassium (Cozaar) 100 mg PO DAILY [facility] Last Admin: 08/19/18 10:10 Dose: 100 mg Metoprolol Succinate (Toprol Xl) 25 mg PO DAILY [facility] Last Admin: 08/19/18 10:10 Dose: 25 mg Montelukast Sodium (Singulair) 10 mg PO HS [facility] Last Admin: 08/18/18 22:23 Dose: 10 mg Ondansetron HCl (Zofran Inj) 4 mg IVP Q6H PRN PRN Reason: Nausea/Vomiting Last Admin: 08/17/18 18:21 Dose: 4 mg Pantoprazole Sodium (Protonix Ec Tab) 40 mg PO DAILY [facility] Last Admin: 08/19/18 10:10 Dose: 40 mg Sucralfate (Carafate Tab) 1 gm PO ACBHS [facility] Last Admin: 08/19/18 06:34 Dose: 1 gm Temazepam (Restoril) 15 mg PO HS PRN PRN Reason: Insomnia Last Admin: 08/17/18 23:13 Dose: 15 mg - Labs Labs: 08/15/18 10:30 08/15/18 10:30 PT 13.4 SECONDS (9.7-12.2) H 08/15/18 10:57 INR 1.2 08/15/18 10:57 APTT 23 SECONDS (21-34) 08/15/18 10:57 - Constitutional Appears: Well - Head Exam Head Exam: ATRAUMATIC, NORMAL INSPECTION, NORMOCEPHALIC - Eye Exam Eye Exam: EOMI, Normal appearance, PERRL Pupil Exam: NORMAL ACCOMODATION, PERRL - ENT Exam ENT Exam: Mucous Membranes Moist, Normal Exam - Neck Exam Neck Exam: Full ROM, Normal Inspection. absent: Lymphadenopathy - Respiratory Exam Respiratory Exam: Decreased Breath Sounds - Cardiovascular Exam Cardiovascular Exam: REGULAR RHYTHM, +S1, +S2 - GI/Abdominal Exam GI & Abdominal Exam: Soft, Diminished Bowel Sounds - Rectal Exam Rectal Exam: Deferred
[2018-08-20 08:33] VITALS: BP 116/79; PULSE 84; TEMP 98.1; O2SAT 97
[2018-08-20] MEDS: Enoxaparin 60 mg Syringe SC SCH (09:26)
[2018-08-20] MEDS: Pantoprazole 40 mg EC Tab PO SCH (09:27)
[2018-08-20] MEDS: Metoprolol Succinate 25 mg XL Tab PO SCH (09:27)
[2018-08-20] MEDS: diltiaZEM 120 mg/24 Hours CD Cap PO SCH (09:34)
--- NOTE | 2018-08-20 10:27 | CP.PCM.PN ---
Subjective - Date & Time of Evaluation Date of Evaluation: 08/20/18 Time of Evaluation: 10:27 - Subjective Subjective: PATIENT SEEN AND EXAMINED AT THE BEDSIDE Objective - Vital Signs/Intake and Output Vital Signs (last 24 hours): Temp Pulse Resp BP Pulse Ox 98.1 F 84 20 116/79 97 08/20/18 08:32 08/20/18 08:32 08/20/18 08:32 08/20/18 08:32 08/20/18 08:32 - Medications Medications: Current Medications Aspirin (Aspirin) 325 mg PO DAILY [facility] Last Admin: 08/20/18 09:26 Dose: 325 mg Clonazepam (Klonopin) 0.5 mg PO BID [facility] Last Admin: 08/20/18 09:27 Dose: 0.5 mg Diltiazem HCl (Cardizem Cd) 120 mg PO DAILY [facility] Last Admin: 08/20/18 09:34 Dose: 120 mg Enoxaparin Sodium (Lovenox) 50 mg SC DAILY [facility] Last Admin: 08/20/18 09:26 Dose: 50 mg Gabapentin (Neurontin) 300 mg PO TID [facility] Last Admin: 08/20/18 09:27 Dose: 300 mg Hydroxyzine HCl (Atarax) 25 mg PO TID [facility] Last Admin: 08/20/18 09:27 Dose: 25 mg Lactulose (Enulose) 20 gm PO HS PRN PRN Reason: Constipation Last Admin: 08/18/18 22:26 Dose: 20 gm Lorazepam (Ativan) 1 mg PO Q6 PRN PRN Reason: Anxiety Losartan Potassium (Cozaar) 100 mg PO DAILY [facility] Last Admin: 08/20/18 09:27 Dose: 100 mg Metoprolol Succinate (Toprol Xl) 25 mg PO DAILY [facility] Last Admin: 08/20/18 09:27 Dose: 25 mg Montelukast Sodium (Singulair) 10 mg PO HS [facility] Last Admin: 08/19/18 21:48 Dose: 10 mg Ondansetron HCl (Zofran Inj) 4 mg IVP Q6H PRN PRN Reason: Nausea/Vomiting Last Admin: 08/17/18 18:21 Dose: 4 mg Pantoprazole Sodium (Protonix Ec Tab) 40 mg PO DAILY [facility] Last Admin: 08/20/18 09:27 Dose: 40 mg Sucralfate (Carafate Tab) 1 gm PO ACS [facility] Last Admin: 08/20/18 07:09 Dose: 1 gm Temazepam (Restoril) 15 mg PO HS PRN PRN Reason: Insomnia Last Admin: 08/17/18 23:13 Dose: 15 mg - Labs Labs: 08/15/18 10:30 08/15/18 10:30 PT 13.4 SECONDS (9.7-12.2) H 08/15/18 10:57 INR 1.2 08/15/18 10:57 APTT 23 SECONDS (21-34) 08/15/18 10:57 Assessment and Plan - Assessment and Plan (Free Text) Assessment: follow up with dr bennett or your own manager diabetes dr pastor in his office ------call for appointment follow up with dr magana in his office -----call for appointment continue home medication new prescription given cardizem increase to 120 mg po daily atarax 25 mg po tid stop taking klonopin per dr magana Activity as tolerated. Follow up with Dr. Idalmis Kaiser in a week. call dr nanette kaiser or go to the emergency room if symptom return or worsening
== END 2018-08-20 12:40 | disposition home or self-care (01) ==
LOC: C.ER 09:52 → C.9E 12:09 → C.6T 14:44 → OBSVTOIN 08-19 17:48 → INTOOBSV 08-19 17:48
PROVIDERS: ADMIT Internal Medicine Nephrology; ATTEND Internal Medicine Nephrology
DX: R00.1 Bradycardia, unspecified (principal); I10 Essential (primary) hypertension; I25.10 Atherosclerotic heart disease of native coronary artery without angina pectoris; E10.9 Type 1 diabetes mellitus without complications; F41.1 Generalized anxiety disorder; J44.9 Chronic obstructive pulmonary disease, unspecified; F41.0 Panic disorder [episodic paroxysmal anxiety]; E78.00 Pure hypercholesterolemia, unspecified; F32.9 Major depressive disorder, single episode, unspecified; Z86.73 Personal history of transient ischemic attack (TIA), and cerebral infarction without residual deficits; Z79.4 Long term (current) use of insulin; Z87.891 Personal history of nicotine dependence; Z90.49 Acquired absence of other specified parts of digestive tract; Z95.5 Presence of coronary angioplasty implant and graft
CPT/HCPCS: 36415; 71045; 80053; 82948; 84484; 85025; 85378; 85610; 85730; 93005; 96374; 99285; G0378; G0480; J1650; J2405

== ENCOUNTER 2018-11-21 08:07 | Observation (INO) | payer MEDICARE, MEDICAID ==
[2018-11-21 08:07] VITALS: BMI 42.9
--- NOTE | 2018-11-21 08:32 | C.PDOC ---
History Of Present Illness 58-year-old female is brought into the emergency department by ambulance with complaints of productive cough with white sputum, fever, chills, body aches, shortness of breath, pleuritic chest pain, runny nose and nausea since Thursday11-19-18. Patient denies vomiting, diarrhea, dysuria, and sick contact. Patient has a past medical history of afib, COPD, hypertension, CAD, CHF and diabetes. Time Seen by Provider: 11/21/18 08:14 Chief Complaint (Nursing): Chest Pain History Per: Patient History/Exam Limitations: no limitations Onset/Duration Of Symptoms: Days (2) Current Symptoms Are (Timing): Still Present Quality: Aching Associated Symptoms: Nausea, Other (productive cough, white sputum, fever, chills, body aches, shortness of breath, pleuritic chest pain, runny nose) Past Medical History Reviewed: Historical Data, Nursing Documentation, Vital Signs Vital Signs: Last Vital Signs Temp 99 F 11/21/18 08:14 Pulse 113 H 11/21/18 08:14 Resp 22 11/21/18 08:14 BP 112/75 11/21/18 08:14 Pulse Ox 98 11/21/18 08:14 - Medical History PMH: Anxiety, Arthritis, Atrial Fibrillation, CAD, Cardia Arrhythmia, CHF, COPD, Depression, Diabetes (hypoglycemia), Gastritis, Gall Bladder Disease, HTN, Hypercholesterolemia Denies: Chronic Kidney Disease Surgical History: Cholecystectomy, Coronary Stent (x2) - [facility] Procedures EXCISION OF STOMACH, ENDO, DIAGN (11/25/17) Family History: States: No Known Family Hx - Social History Hx Tobacco Use: Yes (QUIT) Hx Alcohol Use: No Hx Substance Use: No - Immunization History Hx Tetanus Toxoid Vaccination: No Hx Influenza Vaccination: No (ALLERGY) Hx Pneumococcal Vaccination: No (ALLERGY) Review Of Systems Constitutional: Positive for: Fever, Chills ENT: Positive for: Nose Discharge (rhinorrhea) Respiratory: Positive for: Cough, Shortness of Breath, Pleuritic Pain, Sputum (white) Gastrointestinal: Positive for: Nausea. Negative for: Vomiting, Diarrhea Genitourinary: Negative for: Dysuria Musculoskeletal: Positive for: Other (body aches) Physical Exam - Physical Exam Appears: Non-toxic, Other (anxious) Skin: Normal Color, Warm, Dry Head: Atraumatic, Normacephalic Eye(s): bilateral: Normal Inspection, PERRL, EOMI Nose: Normal Oral Mucosa: Moist Throat: Normal, No Erythema Neck: Normal, Supple Lymphatic: Adenopathy Chest: No Tenderness Cardiovascular: Rhythm Regular (tachycardic), No Murmur Respiratory: No Accessory Muscle Use, No Rales, No Rhonchi, Wheezing (scant expiratory wheezing), Other (speaking full sentences) Gastrointestinal/Abdominal: Soft, No Tenderness, No Guarding, No Rebound Extremity: Normal ROM, Swelling (trace pitting edema to the lower extremities) Neurological/Psych: Oriented x3, Normal Speech, Normal Cognition ED Course And Treatment Interpretation Of ECG: Sinus tachycardia at 111bpm, normal axis, no acute ST/T wave changes. O2 Sat by Pulse Oximetry: 98 (RA) Pulse Ox Interpretation: Normal Progress Note: Plan: VBG. EKG. Chemistry. Hematology. CXR. Blood Culture. Influenza Serology. Urinalysis Disposition - Disposition Forms: [employer] (Thai) - Scribe Statement The provider has reviewed the documentation as recorded by the Scribe (Rigo Hodgson) Provider Attestation: All medical record entries made by the Scribe were at my direction and personally dictated by me. I have reviewed the chart and agree that the record accurately reflects my personal performance of the history, physical exam, medical decision making, and the department course for this patient. I have also personally directed, reviewed, and agree with the discharge instructions and disposition.
[2018-11-21 09:21] LABS: BASO # 0.1 K/uL (0.0-0.2); BASO % 0.9 % (0.0-2.0); EOS # 0.2 K/uL (0.0-0.7); EOS % 2.4 % (0.0-4.0); HEMOGLOBIN 11.3 g/dL (11.0-16.0); LYMPH # 1.4 K/uL (1.0-4.3); LYMPH % 13.9 % (20.0-40.0); MEAN CELL VOLUME 75.2 fL (81.0-99.0); MEAN CORPUSCULAR HEMOGLOBIN 25.1 pg (27.0-31.0); MEAN CORPUSCULAR HGB CONC 33.4 g/dL (33.0-37.0); MEAN PLATELET VOLUME 8.8 fL (7.2-11.7); MONO # 0.7 K/uL (0.0-0.8); MONO % 6.8 % (0.0-10.0); NEUT # 7.5 K/uL (1.8-7.0); NRBC % 0.1 % (0.0-2.0); RBC 4.51 Mil/uL (3.80-5.20); RED CELL DISTRIBUTION WIDTH 16.7 % (11.5-14.5); WHITE BLOOD COUNT 9.9 K/uL (4.8-10.8)
[2018-11-21 09:27] LABS: VENOUS BLOOD GAS BASE EXCESS 3.2 mmol/L (0.0-2.0); VENOUS BLOOD GAS PCO2 42 mmHg (40-60); VENOUS BLOOD GAS PO2 36 mm/Hg (30-55); VENOUS BLOOD PH 7.43 (7.32-7.43)
[2018-11-21 09:28] LABS: INR 1.1; PROTHROMBIN TIME 12.5 SECONDS (9.7-12.2)
[2018-11-21 09:41] LABS: ALB/GLOB RATIO 1.1 (1.0-2.1); ALBUMIN 4.2 g/dL (3.5-5.0); ALT/SGPT < 6 U/L (9-52); AST/SGOT 21 U/L (14-36); BLOOD UREA NITROGEN 18 mg/dL (7-17); CALCIUM 9.6 mg/dl (8.6-10.4); GFR NON-AFRICAN AMERICAN 57
[2018-11-21 09:53] LABS: CK-MB 0.29 ng/mL (0.0-3.38)
[2018-11-21 10:34] LABS: B-TYPE NATRIURETIC PEPTIDE 27.4 pg/mL (0-900)
--- NOTE | 2018-11-21 10:41 | RAD ---
Date of service: 11/21/2018 PROCEDURE: CHEST RADIOGRAPH, 1 VIEW HISTORY: SOB COMPARISON: Comparison is made with 08/15/2018 FINDINGS: LUNGS: No evidence of new infiltrate or consolidation in the lungs PLEURA: No pneumothorax or pleural fluid seen. CARDIOVASCULAR: No aortic atherosclerotic calcification present. Normal. OSSEOUS STRUCTURES: No significant abnormalities. VISUALIZED UPPER ABDOMEN: Normal. OTHER FINDINGS: None. IMPRESSION: No acute pulmonary disease.
[2018-11-21] MEDS ORDERED: Albuterol 0.083% Inhal Sol (2.5 mg/3 mL) UD IH STA (11:13)
[2018-11-21] MEDS ORDERED: Albuterol 0.083% Inhal Sol (2.5 mg/3 mL) UD ONE (11:58)
[2018-11-21 14:31] LABS: SQUAMOUS EPITHIAL 2 /hpf (0-5); URINE BACTERIA RARE (<OCC); URINE BILIRUBIN NEGATIVE (NEGATIVE); URINE BLOOD NEGATIVE (NEGATIVE); URINE CLARITY Clear (Clear); URINE COLOR Yellow (YELLOW); URINE GLUCOSE (UA) NORMAL (Normal); URINE LEUKOCYTE ESTERASE NEG Leu/uL (Negative); URINE PROTEIN NEGATIVE (NEGATIVE); URINE UROBILINOGEN NORMAL mg/dL (0.2-1.0)
--- NOTE | 2018-11-21 15:02 | CP.PCM.HP ---
Past Patient History - Infectious Disease Hx of Infectious Diseases: None - Tetanus Immunizations Tetanus Immunization: Unknown - Past Medical History & Family History Past Medical History?: Yes - Past Social History Smoking Status: Heavy Smoker > 10 Cigarettes Daily - CARDIAC Hx Atrial Fibrillation: Yes Hx Cardia Arrhythmia: Yes Hx Congestive Heart Failure: Yes Hx Hypercholesterolemia: Yes Hx Hypertension: Yes - PULMONARY Hx Chronic Obstructive Pulmonary Disease (COPD): Yes - NEUROLOGICAL Hx Neurological Disorder: Yes HX Cerebrovascular Accident: Yes Hx Dizziness: Yes - HEENT Hx HEENT Problems: Yes Other/Comment: wears glasses for reading - RENAL Hx Chronic Kidney Disease: No - ENDOCRINE/METABOLIC Hx Endocrine Disorders: Yes Hx Diabetes Mellitus Type 1: Yes Hx Diabetes Mellitus Type 2: Yes - HEMATOLOGICAL/ONCOLOGICAL Hx Blood Disorders: No - INTEGUMENTARY Hx Dermatological Problems: Yes Hx Eczema: Yes - MUSCULOSKELETAL/RHEUMATOLOGICAL Hx Arthritis: Yes - GASTROINTESTINAL Hx Gall Bladder Disease: Yes Hx Gastritis: Yes - GENITOURINARY/GYNECOLOGICAL Hx Genitourinary Disorders: No - PSYCHIATRIC Hx Anxiety: Yes Hx Depression: Yes Hx Substance Use: No - SURGICAL HISTORY Hx Cholecystectomy: Yes Hx Coronary Stent: Yes (x2) - ANESTHESIA Hx Anesthesia: Yes Hx Anesthesia Reactions: No Meds Allergies/Adverse Reactions: Allergies Allergy/AdvReac Type Severity Reaction Status Date / Time verapamil Allergy Verified 11/21/18 08:18 escitalopram [From Lexapro] AdvReac ANAPHYLAXIS Verified 11/21/18 08:18 Flu vaccine Allergy ANAPHYLAXIS Uncoded 11/21/18 08:18 pnuemonia vaccine Allergy ANAPHYLAXIS Uncoded 11/21/18 08:18 steroids Allergy Uncoded 11/21/18 08:18 wool Allergy ANAPHYLAXIS Uncoded 11/21/18 08:18 Physical Exam - Constitutional Appears: Well - Head Exam Head Exam: ATRAUMATIC, NORMAL INSPECTION, NORMOCEPHALIC - Eye Exam Eye Exam: EOMI, Normal appearance, PERRL Pupil Exam: NORMAL ACCOMODATION, PERRL - ENT Exam ENT Exam: Mucous Membranes Moist, Normal Exam - Neck Exam Neck exam: Positive for: Normal Inspection - Respiratory Exam Respiratory Exam: Decreased Breath Sounds - Cardiovascular Exam Cardiovascular Exam: REGULAR RHYTHM, +S1, +S2 - GI/Abdominal Exam GI & Abdominal Exam: Diminished Bowel Sounds, Soft - Rectal Exam Rectal Exam: Deferred Results - Vital Signs Recent Vital Signs: Last Vital Signs Temp 98.3 F 11/21/18 14:44 Pulse 86 11/21/18 14:44 Resp 18 11/21/18 14:44 BP 159/89 H 11/21/18 14:44 Pulse Ox 98 11/21/18 14:44 - Labs Result Diagrams: 11/21/18 09:12 11/21/18 09:12 Labs: Laboratory Results - last 24 hr 11/21/18 11/21/18 11/21/18 09:12 09:12 09:12 WBC 9.9 RBC 4.51 Hgb 11.3 Hct 33.9 L MCV 75.2 L D MCH 25.1 L MCHC 33.4 RDW 16.7 H Plt Count 311 D MPV 8.8 Neut % (Auto) 76.0 H Lymph % (Auto) 13.9 L [place] % (Auto) 6.8 Eos % (Auto) 2.4 Baso % (Auto) 0.9 Neut # (Auto) 7.5 H Lymph # (Auto) 1.4 [place] # (Auto) 0.7 Eos # (Auto) 0.2 Baso # (Auto) 0.1 PT 12.5 H INR 1.1 APTT 31 pO2 VBG pH VBG pCO2 VBG HCO3 VBG Total CO2 VBG O2 Sat (Calc) VBG Base Excess VBG Potassium Glucose Lactate FiO2 Sodium 138 Potassium 3.7 Chloride 102 Carbon Dioxide 26 Anion Gap 13 BUN 18 H Creatinine 1.0 Est GFR ( Amer) > 60 Est GFR (Non-Af Amer) 57 Random Glucose 139 H Calcium 9.6 Total Bilirubin 0.2 AST 21 ALT < 6 L D Alkaline Phosphatase 128 H Total Creatine Kinase 65 CK-MB (Mass) 0.29 Troponin I < 0.0120 NT-Pro-B Natriuret Pep 27.4 Total Protein 7.9 Albumin 4.2 Globulin 3.7 Albumin/Globulin Ratio 1.1 Venous Blood Potassium Urine Color Urine Clarity Urine pH Ur Specific [place] Urine Protein Urine Glucose (UA) Urine Ketones Urine Blood Urine Nitrate Urine Bilirubin Urine Urobilinogen Ur Leukocyte Esterase Urine WBC (Auto) Urine RBC (Auto) Ur Squamous Epith Cells Urine Bacteria Influenza Typ A,B (EIA) 11/21/18 11/21/18 11/21/18 09:12 09:20 14:24 WBC RBC Hgb Hct MCV MCH MCHC RDW Plt Count MPV Neut % (Auto) Lymph % (Auto) [place] % (Auto) Eos % (Auto) Baso % (Auto) Neut # (Auto) Lymph # (Auto) [place] # (Auto) Eos # (Auto) Baso # (Auto) PT INR APTT pO2 36 VBG pH 7.43 VBG pCO2 42 VBG HCO3 26.7 VBG Total CO2 29.2 H VBG O2 Sat (Calc) 72.8 H VBG Base Excess 3.2 H VBG Potassium 3.4 L Glucose 129 H Lactate 1.1 FiO2 21.0 Sodium 140.0 Potassium Chloride 106.0 Carbon Dioxide Anion Gap BUN Creatinine Est GFR ( Amer) Est GFR (Non-Af Amer) Random Glucose Calcium Total Bilirubin AST ALT Alkaline Phosphatase Total Creatine Kinase CK-MB (Mass) Troponin I NT-Pro-B Natriuret Pep Total Protein Albumin Globulin Albumin/Globulin Ratio Venous Blood Potassium 3.4 L Urine Color Yellow Urine Clarity Clear Urine pH 5.0 Ur Specific [place] 1.019 Urine Protein Negative Urine Glucose (UA) Normal Urine Ketones Negative Urine Blood Negative Urine Nitrate Negative Urine Bilirubin Negative Urine Urobilinogen Normal Ur Leukocyte Esterase Neg Urine WBC (Auto) 1 Urine RBC (Auto) 1 Ur Squamous Epith Cells 2 Urine Bacteria Rare Influenza Typ A,B (EIA) Negative for flu a/b
[2018-11-21] MEDS: Sucralfate 1 gm/10 ml Oral Susp UD PO SCH (18:20)
[2018-11-21] MEDS ORDERED: guaiFENesin DM 200 mg-20 mg/10 ml UD PO STA (21:47)
[2018-11-22] MEDS: Pantoprazole 40 mg EC Tab PO SCH (09:36)
[2018-11-22] MEDS: cefTRIAXone IV 1 gm in Dextros 50 ML IVPB SCH (09:37)
[2018-11-22] MEDS: diltiaZEM 120 mg/24 Hours CD Cap PO SCH (09:38)
[2018-11-22] MEDS: Sucralfate 1 gm/10 ml Oral Susp UD PO SCH ×3 (09:38→17:44)
[2018-11-22] MEDS: Enoxaparin 40 mg Syringe SC SCH (09:39)
[2018-11-22] MEDS: Potassium Chloride 10 mEq ER Tab PO SCH (09:39)
[2018-11-22] MEDS ORDERED: Pantoprazole 20 mg EC Tab PO SCH (10:00)
[2018-11-22] MEDS: Azithromycin 500 MG in Sodium Chloride 0.9% 250 ML IVPB SCH (11:51)
--- NOTE | 2018-11-22 12:00 | CP.PCM.CON ---
History of Present Illness - History of Present Illness History of Present Illness: 57 year old female, av ablation several years ago, and since then, countless admissions for chest pain and palpitations. Extensive work over many admissions, both here and at [facility] have been negative. pt was sen home for [facility] 10 days ago, and admitted here and then sent home. Now admitted again, but this time with fever, cough, chills. TNI negative, ecg normal. A review of telemetry strips reveal sinus tachycardia at times. Pt is on a combo of Cardizem and metoprolol, and other regimens have been tried. Pt's bp is too low to increase meds. Contrary to Er doctors reports, pt has no h/o CAD or CHF. CXR is clear, and UA normal. Review of Systems - Review of Systems All systems: reviewed and no additional remarkable complaints except (as above) Past Patient History - Infectious Disease Hx of Infectious Diseases: None - Tetanus Immunizations Tetanus Immunization: Unknown - Past Medical History & Family History Past Medical History?: Yes - Past Social History Smoking Status: Heavy Smoker > 10 Cigarettes Daily - CARDIAC Hx Atrial Fibrillation: Yes Hx Cardia Arrhythmia: Yes Hx Congestive Heart Failure: Yes Hx Hypercholesterolemia: Yes Hx Hypertension: Yes - PULMONARY Hx Chronic Obstructive Pulmonary Disease (COPD): Yes - NEUROLOGICAL Hx Neurological Disorder: Yes HX Cerebrovascular Accident: Yes Hx Dizziness: Yes - HEENT Hx HEENT Problems: Yes Other/Comment: wears glasses for reading - RENAL Hx Chronic Kidney Disease: No - ENDOCRINE/METABOLIC Hx Endocrine Disorders: Yes Hx Diabetes Mellitus Type 1: Yes Hx Diabetes Mellitus Type 2: Yes - HEMATOLOGICAL/ONCOLOGICAL Hx Blood Disorders: No - INTEGUMENTARY Hx Dermatological Problems: Yes Hx Eczema: Yes - MUSCULOSKELETAL/RHEUMATOLOGICAL Hx Arthritis: Yes - GASTROINTESTINAL Hx Gall Bladder Disease: Yes Hx Gastritis: Yes - GENITOURINARY/GYNECOLOGICAL Hx Genitourinary Disorders: No - PSYCHIATRIC Hx Anxiety: Yes Hx Depression: Yes Hx Substance Use: No - SURGICAL HISTORY Hx Cholecystectomy: Yes Hx Coronary Stent: Yes (x2) - ANESTHESIA Hx Anesthesia: Yes Hx Anesthesia Reactions: No Meds Allergies/Adverse Reactions: Allergies Allergy/AdvReac Type Severity Reaction Status Date / Time verapamil Allergy Verified 11/21/18 08:18 escitalopram [From Lexapro] AdvReac ANAPHYLAXIS Verified 11/21/18 08:18 Flu vaccine Allergy ANAPHYLAXIS Uncoded 11/21/18 08:18 pnuemonia vaccine Allergy ANAPHYLAXIS Uncoded 11/21/18 08:18 steroids Allergy Uncoded 11/21/18 08:18 wool Allergy ANAPHYLAXIS Uncoded 11/21/18 08:18 - Medications Medications: Current Medications Aspirin (Aspirin) 325 mg PO DAILY COUNTS INCLUDE 234 BEDS AT THE [facility] Last Admin: 11/22/18 09:38 Dose: 325 mg Clonazepam (Klonopin) 1 mg PO TID COUNTS INCLUDE 234 BEDS AT THE [facility] Last Admin: 11/22/18 09:38 Dose: 1 mg Diltiazem HCl (Cardizem Cd) 120 mg PO DAILY COUNTS INCLUDE 234 BEDS AT THE [facility] Last Admin: 11/22/18 09:38 Dose: 120 mg Enoxaparin Sodium (Lovenox) 40 mg SC DAILY COUNTS INCLUDE 234 BEDS AT THE [facility] Last Admin: 11/22/18 09:39 Dose: 40 mg Gabapentin (Neurontin) 100 mg PO TID COUNTS INCLUDE 234 BEDS AT THE [facility] Last Admin: 11/22/18 09:38 Dose: 100 mg Hydrochlorothiazide (Hydrodiuril) 25 mg PO DAILY COUNTS INCLUDE 234 BEDS AT THE [facility] Last Admin: 11/22/18 09:38 Dose: 25 mg Hydroxyzine HCl (Atarax) 25 mg PO TID COUNTS INCLUDE 234 BEDS AT THE [facility] Last Admin: 11/22/18 09:35 Dose: Not Given Ceftriaxone Sodium (Rocephin Iv 1 Gm Duplex) 50 mls @ 100 mls/hr IVPB DAILY COUNTS INCLUDE 234 BEDS AT THE [facility]; Protocol Last Admin: 11/22/18 09:37 Dose: 100 mls/hr Azithromycin 500 mg/ Sodium (Chloride) 250 mls @ 250 mls/hr IVPB DAILY COUNTS INCLUDE 234 BEDS AT THE [facility]; Protocol Last Admin: 11/22/18 11:51 Dose: 250 mls/hr Losartan Potassium (Cozaar) 100 mg PO DAILY COUNTS INCLUDE 234 BEDS AT THE [facility] Last Admin: 11/22/18 09:38 Dose: 100 mg Metformin HCl (Glucophage) 500 mg PO DAILY COUNTS INCLUDE 234 BEDS AT THE [facility] Last Admin: 11/22/18 09:35 Dose: Not Given Metoprolol Succinate (Toprol Xl) 25 mg PO DAILY COUNTS INCLUDE 234 BEDS AT THE [facility] Montelukast Sodium (Singulair) 10 mg PO [facility] Pantoprazole Sodium (Protonix Ec Tab) 40 mg PO DAILY COUNTS INCLUDE 234 BEDS AT THE [facility] Last Admin: 11/22/18 09:36 Dose: Not Given Potassium Chloride (Klor-Con 10) 10 meq PO DAILY COUNTS INCLUDE 234 BEDS AT THE [facility] Last Admin: 11/22/18 09:39 Dose: 10 meq Sucralfate (Carafate Oral Susp) 1 gm PO TID COUNTS INCLUDE 234 BEDS AT THE [facility] Last Admin: 11/22/18 09:38 Dose: 1 gm Temazepam (Restoril) 15 mg PO HS PRN PRN Reason: Insomnia Last Admin: 11/21/18 22:05 Dose: 15 mg Physical Exam - Constitutional Appears: Well - Head Exam Head Exam: ATRAUMATIC - Eye Exam Eye Exam: EOMI Pupil Exam: NORMAL ACCOMODATION - ENT Exam ENT Exam: Mucous Membranes Moist - Neck Exam Neck exam: Positive for: Normal Inspection - Respiratory Exam Respiratory Exam: Clear to Auscultation Bilateral, NORMAL BREATHING PATTERN - GI/Abdominal Exam GI & Abdominal Exam: Normal Bowel Sounds - Extremities Exam Extremities exam: Positive for: normal inspection - Back Exam Back exam: NORMAL INSPECTION - Psychiatric Exam Psychiatric exam: Depressed (tearful cries easily, yet no actual tears produced) - Skin Skin Exam: Normal Color Results - Vital Signs Recent Vital Signs: Last Vital Signs Temp 97.9 F 11/22/18 07:25 Pulse 79 11/22/18 07:30 Resp 18 11/22/18 07:25 BP 113/76 11/22/18 07:25 Pulse Ox 99 11/22/18 07:25 - Labs Result Diagrams: 11/21/18 09:12 11/21/18 09:12 Labs: Laboratory Results - last 24 hr 11/21/18 11/21/18 11/21/18 14:24 17:20 21:34 POC Glucose (mg/dL) 100 105 Urine Color Yellow Urine Clarity Clear Urine pH 5.0 Ur Specific Joseph 1.019 Urine Protein Negative Urine Glucose (UA) Normal Urine Ketones Negative Urine Blood Negative Urine Nitrate Negative Urine Bilirubin Negative Urine Urobilinogen Normal Ur Leukocyte Esterase Neg Urine WBC (Auto) 1 Urine RBC (Auto) 1 Ur Squamous Epith Cells 2 Urine Bacteria Rare 11/22/18 06:25 POC Glucose (mg/dL) 117 H Urine Color Urine Clarity Urine pH Ur Specific Joseph Urine Protein Urine Glucose (UA) Urine Ketones Urine Blood Urine Nitrate Urine Bilirubin Urine Urobilinogen Ur Leukocyte Esterase Urine WBC (Auto) Urine RBC (Auto) Ur Squamous Epith Cells Urine Bacteria - EKG Data EKG Interpreted by: Myself EKG shows normal: Sinus rhythm Assessment & Plan - Assessment and Plan (Free Text) Assessment: 1. No arrhytmia noted. 2. No known CAD 3. No h/o chg 4. Multiple admissions for chest pain and palpitations, and negative work up. 5. Continue metop and cardezem combo for symptomatic sinus tachycardia. 6. Will sign off. thank you.
[2018-11-22] MEDS ORDERED: Fluconazole IV 200mg/100 ml NS 100 MG in Premixed IV 1 EA IVPB ONE (14:15)
[2018-11-22] MEDS ORDERED: Fluconazole IV 200mg/100 ml NS 100 ML IVPB ONE (16:15)
[2018-11-22] MEDS: Benzocaine/Menthol (Cepacol) Lozenge MT SCH ×2 (17:45→21:25)
[2018-11-22] MEDS: guaiFENesin 600 mg ER Tab PO SCH (17:46)
--- NOTE | 2018-11-22 18:13 | CP.PCM.PN ---
Subjective - Date & Time of Evaluation Date of Evaluation: 11/22/18 Time of Evaluation: 11:25 - Subjective Subjective: no nausea, no vomiting, no fever, no diarrhea, no SOB lyingin bed with food tray on bedside getting iv antibitoic pt claims she gonna eta shortly pt claims she doesnot feel like eating although pt ate earlier Objective - Vital Signs/Intake and Output Vital Signs (last 24 hours): Temp Pulse Resp BP Pulse Ox 97.5 F L 73 20 103/68 98 11/22/18 15:00 11/22/18 15:00 11/22/18 15:00 11/22/18 15:00 11/22/18 15:00 - Medications Medications: Current Medications Aspirin (Aspirin) 325 mg PO DAILY [facility] Last Admin: 11/22/18 09:38 Dose: 325 mg Benzocaine/Menthol (Cepacol Sore Throat) 1 miguel MT QID [facility] Last Admin: 11/22/18 17:45 Dose: 1 miguel Clonazepam (Klonopin) 1 mg PO TID [facility] Last Admin: 11/22/18 17:46 Dose: 1 mg Diltiazem HCl (Cardizem Cd) 120 mg PO DAILY [facility] Last Admin: 11/22/18 09:38 Dose: 120 mg Enoxaparin Sodium (Lovenox) 40 mg SC DAILY [facility] Last Admin: 11/22/18 09:39 Dose: 40 mg Gabapentin (Neurontin) 100 mg PO TID [facility] Last Admin: 11/22/18 17:46 Dose: 100 mg Guaifenesin (Mucinex La) 600 mg PO BID [facility] Last Admin: 11/22/18 17:46 Dose: 600 mg Hydrochlorothiazide (Hydrodiuril) 25 mg PO DAILY [facility] Last Admin: 11/22/18 09:38 Dose: 25 mg Hydroxyzine HCl (Atarax) 25 mg PO TID [facility] Last Admin: 11/22/18 17:43 Dose: Not Given Ceftriaxone Sodium (Rocephin Iv 1 Gm Duplex) 50 mls @ 100 mls/hr IVPB DAILY [facility]; Protocol Last Admin: 11/22/18 09:37 Dose: 100 mls/hr Azithromycin 500 mg/ Sodium (Chloride) 250 mls @ 250 mls/hr IVPB DAILY [facility]; Protocol Last Admin: 11/22/18 11:51 Dose: 250 mls/hr Losartan Potassium (Cozaar) 100 mg PO DAILY [facility] Last Admin: 11/22/18 09:38 Dose: 100 mg Metformin HCl (Glucophage) 500 mg PO DAILY [facility] Last Admin: 11/22/18 09:35 Dose: Not Given Metoprolol Succinate (Toprol Xl) 25 mg PO DAILY [facility] Montelukast Sodium (Singulair) 10 mg PO HS [facility] Pantoprazole Sodium (Protonix Ec Tab) 40 mg PO DAILY [facility] Last Admin: 11/22/18 09:36 Dose: Not Given Potassium Chloride (Klor-Con 10) 10 meq PO DAILY [facility] Last Admin: 11/22/18 09:39 Dose: 10 meq Sucralfate (Carafate Oral Susp) 1 gm PO TID [facility] Last Admin: 11/22/18 17:44 Dose: 1 gm Temazepam (Restoril) 15 mg PO HS PRN PRN Reason: Insomnia Last Admin: 11/21/18 22:05 Dose: 15 mg - Labs Labs: 11/21/18 09:12 11/21/18 09:12 PT 12.5 SECONDS (9.7-12.2) H 11/21/18 09:12 INR 1.1 11/21/18 09:12 APTT 31 SECONDS (21-34) 11/21/18 09:12 - Constitutional Appears: Well - Head Exam Head Exam: ATRAUMATIC, NORMAL INSPECTION, NORMOCEPHALIC - Eye Exam Eye Exam: EOMI, Normal appearance, PERRL Pupil Exam: NORMAL ACCOMODATION, PERRL - ENT Exam ENT Exam: Mucous Membranes Moist, Normal Exam - Neck Exam Neck Exam: Full ROM, Normal Inspection. absent: Lymphadenopathy - Respiratory Exam Respiratory Exam: Decreased Breath Sounds - Cardiovascular Exam Cardiovascular Exam: REGULAR RHYTHM, +S1, +S2 - GI/Abdominal Exam GI & Abdominal Exam: Soft, Diminished Bowel Sounds - Rectal Exam Rectal Exam: Deferred Assessment and Plan - Assessment and Plan (Free Text) Plan: medications reviewed labs reviewed vitals reveiwed Aspirin Catapress Azithromycin Carafate oral suspension Cardizem Simple cold sore throat Cozaar Glucophage HydroDIURIL Klonopin Klor-Con 10 Lovenox Mucinex LA Neurontin Protonix EC tab Restoril Rocephin IV 1gm duplex Singulair Toprol XL cardio dr. amaya note appprecaited possible dischrge tomorrow after dose of iv antibiotic pt made aware..
[2018-11-23 07:29] VITALS: PULSE 84
[2018-11-23 08:21] VITALS: BP 127/78; RESP 20; TEMP 98.1; O2SAT 95
[2018-11-23] MEDS ORDERED: Metoprolol Succinate 25 mg XL Tab PO SCH (10:00)
[2018-11-23] MEDS: Pantoprazole 40 mg EC Tab PO SCH (10:10)
[2018-11-23] MEDS: Sucralfate 1 gm/10 ml Oral Susp UD PO SCH ×2 (10:11→13:13)
[2018-11-23] MEDS: Potassium Chloride 10 mEq ER Tab PO SCH (10:12)
[2018-11-23] MEDS: diltiaZEM 120 mg/24 Hours CD Cap PO SCH (10:12)
[2018-11-23] MEDS: guaiFENesin 600 mg ER Tab PO SCH (10:13)
[2018-11-23] MEDS: Benzocaine/Menthol (Cepacol) Lozenge MT SCH ×2 (10:14→13:14)
[2018-11-23] MEDS: Enoxaparin 40 mg Syringe SC SCH (10:16)
[2018-11-23] MEDS: cefTRIAXone IV 1 gm in Dextros 50 ML IVPB SCH (10:16)
[2018-11-23] MEDS: Azithromycin 500 MG in Sodium Chloride 0.9% 250 ML IVPB SCH (10:55)
--- NOTE | 2018-11-23 15:25 | CP.PCM.PN ---
Subjective - Date & Time of Evaluation Date of Evaluation: 11/23/18 Time of Evaluation: 15:25 - Subjective Subjective: PATIENT SEEN AND EXAMINED AT THE BEDSIDE Objective - Vital Signs/Intake and Output Vital Signs (last 24 hours): Temp Pulse Resp BP Pulse Ox 98.1 F 84 20 127/78 95 11/23/18 07:00 11/23/18 07:28 11/23/18 07:00 11/23/18 07:00 11/23/18 07:00 - Medications Medications: Current Medications Aspirin (Aspirin) 325 mg PO DAILY [facility] Last Admin: 11/23/18 10:12 Dose: 325 mg Benzocaine/Menthol (Cepacol Sore Throat) 1 miguel MT QID [facility] Last Admin: 11/23/18 13:14 Dose: 1 miguel Clonazepam (Klonopin) 1 mg PO TID [facility] Last Admin: 11/23/18 13:13 Dose: 1 mg Diltiazem HCl (Cardizem Cd) 120 mg PO DAILY [facility] Last Admin: 11/23/18 10:12 Dose: 120 mg Enoxaparin Sodium (Lovenox) 40 mg SC DAILY [facility] Last Admin: 11/23/18 10:16 Dose: 40 mg Gabapentin (Neurontin) 100 mg PO TID [facility] Last Admin: 11/23/18 13:13 Dose: 100 mg Guaifenesin (Mucinex La) 600 mg PO BID [facility] Last Admin: 11/23/18 10:13 Dose: 600 mg Hydrochlorothiazide (Hydrodiuril) 25 mg PO DAILY [facility] Last Admin: 11/23/18 10:12 Dose: 25 mg Hydroxyzine HCl (Atarax) 25 mg PO TID [facility] Last Admin: 11/23/18 13:11 Dose: Not Given Ceftriaxone Sodium (Rocephin Iv 1 Gm Duplex) 50 mls @ 100 mls/hr IVPB DAILY [facility]; Protocol Last Admin: 11/23/18 10:16 Dose: 100 mls/hr Azithromycin 500 mg/ Sodium (Chloride) 250 mls @ 250 mls/hr IVPB DAILY [facility]; Protocol Last Admin: 11/23/18 10:55 Dose: 250 mls/hr Losartan Potassium (Cozaar) 100 mg PO DAILY [facility] Last Admin: 11/23/18 10:12 Dose: 100 mg Metformin HCl (Glucophage) 500 mg PO DAILY [facility] Last Admin: 11/23/18 10:09 Dose: Not Given Metoprolol Succinate (Toprol Xl) 25 mg PO DAILY [facility] Last Admin: 11/23/18 10:12 Dose: 25 mg Montelukast Sodium (Singulair) 10 mg PO HS [facility] Last Admin: 11/22/18 21:24 Dose: 10 mg Pantoprazole Sodium (Protonix Ec Tab) 40 mg PO DAILY [facility] Last Admin: 11/23/18 10:10 Dose: Not Given Potassium Chloride (Klor-Con 10) 10 meq PO DAILY [facility] Last Admin: 11/23/18 10:12 Dose: 10 meq Sucralfate (Carafate Oral Susp) 1 gm PO TID [facility] Last Admin: 11/23/18 13:13 Dose: 1 gm Temazepam (Restoril) 15 mg PO HS PRN PRN Reason: Insomnia Last Admin: 11/22/18 21:25 Dose: 15 mg - Labs Labs: 11/21/18 09:12 11/21/18 09:12 PT 12.5 SECONDS (9.7-12.2) H 11/21/18 09:12 INR 1.1 11/21/18 09:12 APTT 31 SECONDS (21-34) 11/21/18 09:12 Assessment and Plan - Assessment and Plan (Free Text) Assessment: FOLLOW UP WITH DR Raz BETHEA IN HIS OFFICE CONTINUE HOME MEDICATION NEW PRESCRIPTION GIVEN AUGMENTIN PO BID FOR 5 DAYS METOPROLOL 25 MG PO DAILY MUCINEX PO BID FOR 10 DAYS ACTIVITY TOLERATED CALL DR Raz BETHEA OR GO TO THE EMERGENCY ROOM IF SYMPTOM RETURN OR WORSENING
--- NOTE | 2018-11-23 20:53 | CARD ---
APPROVED REPORT Date of service: 11/21/2018 EKG Measurement Heart [id number] <Conclusion> Sinus tachycardia Otherwise normal ECG
== END 2018-11-23 16:44 | disposition home or self-care (01) ==
LOC: C.ER 08:07 → C.9E 11:11 → C.6T 13:57
PROVIDERS: ADMIT Internal Medicine Nephrology; ATTEND Internal Medicine Nephrology
DX: R00.0 Tachycardia, unspecified (principal); I10 Essential (primary) hypertension; E11.9 Type 2 diabetes mellitus without complications; E78.5 Hyperlipidemia, unspecified; J44.9 Chronic obstructive pulmonary disease, unspecified; Z79.4 Long term (current) use of insulin; Z79.899 Other long term (current) drug therapy; Z86.73 Personal history of transient ischemic attack (TIA), and cerebral infarction without residual deficits; F17.210 Nicotine dependence, cigarettes, uncomplicated; Z95.5 Presence of coronary angioplasty implant and graft; R00.2 Palpitations
CPT/HCPCS: 36415; 71045; 80053; 81001; 82550; 82553; 82803; 82948; 83880; 84484; 85025; 85610; 85730; 87040; 87804; 93005; 94640; 96365; 96366; 96367; 96372; 96375; 99285; G0378; J0456; J0696; J1450; J1650; J1885; J7050

== ENCOUNTER 2019-01-02 10:45 | Observation (INO) | payer MEDICARE, MEDICAID ==
[2019-01-02 10:45] VITALS: BMI 42.9
[2019-01-02] MEDS ORDERED: Sodium Chloride 0.9% 1,000 ML IV SCH (11:00)
--- NOTE | 2019-01-02 11:28 | C.PDOC ---
History Of Present Illness 58 year old female with PMHx of COPD, HTN, diabetes, CAD and prior stroke with residual right sided weakness presents to the ED status post near-syncope episode at home prior to arrival. She reports that today she went upstairs to sp end time with her family and after 10 minutes she developed a sharp chest pain followed by palpitations and a headache. States her body slumped to the floor and she tried to stop herself from falling. Notes she could still hear her family talking and her vision was blurry. Her family took her downstairs after several minutes and then called the ambulance. Reports she was feeling tired, weak, lightheaded and had a headache yesterday but denies any cough, congestion, or sore throat. She is unsure if she had a fever yesterday because she did not measure it. Patient denies having any chest pain, palpitations or shortness of breath currently in the ED. Time Seen by Provider: 01/02/19 10:50 Chief Complaint (Nursing): Chest Pain History Per: Patient History/Exam Limitations: no limitations Onset/Duration Of Symptoms: Hrs Current Symptoms Are (Timing): Still Present Fall Associated With With Symptoms: No Past Medical History Reviewed: Historical Data, Nursing Documentation, Vital Signs Vital Signs: Last Vital Signs Temp 97.7 F 01/02/19 10:49 Pulse 77 01/02/19 10:55 Resp 20 01/02/19 10:49 BP 114/75 01/02/19 10:49 Pulse Ox 97 01/02/19 10:49 Primary Care Provider: Bladimir Zuñiga - Medical History PMH: Anxiety, Arthritis, Atrial Fibrillation, CAD, Cardia Arrhythmia, CHF, COPD, Depression, Diabetes (hypoglycemia), Gastritis, Gall Bladder Disease, HTN, Hypercholesterolemia Denies: Chronic Kidney Disease Surgical History: Cholecystectomy, Coronary Stent (x2) - [facility] Procedures EXCISION OF STOMACH, ENDO, DIAGN (11/25/17) Family History: States: No Known Family Hx - Social History Hx Tobacco Use: Yes (QUIT) Hx Alcohol Use: No Hx Substance Use: No - Immunization History Hx Tetanus Toxoid Vaccination: No Hx Influenza Vaccination: No (ALLERGY) Hx Pneumococcal Vaccination: No (ALLERGY) Review Of Systems Except As Marked, All Systems Reviewed And Found Negative. Constitutional: Negative for: Fever, Chills Cardiovascular: Positive for: Chest Pain, Light Headedness Respiratory: Negative for: Cough, Shortness of Breath Gastrointestinal: Positive for: Nausea. Negative for: Vomiting, Abdominal Pain, Diarrhea Genitourinary: Negative for: Dysuria, Hematuria Neurological: Positive for: Headache, Dizziness Physical Exam - Physical Exam Appears: Non-toxic, No Acute Distress, Other (Speaking clearly and in full sentences ) Skin: Warm, Dry Head: Atraumatic, Normacephalic Eye(s): bilateral: Normal Inspection, PERRL, EOMI Nose: Normal Oral Mucosa: Moist Neck: Supple Chest: Symmetrical Cardiovascular: Rhythm Regular Respiratory: Normal Breath Sounds, No Rales, No Rhonchi, No Wheezing Gastrointestinal/Abdominal: Soft, No Tenderness, Other (obese ) Extremity: No Pedal Edema, Other (Weakness to right upper and lower extremity, strength 3/5. 5/5 strength in left upper and lower extremity. ) Pulses: Left Dorsalis Pedis: Normal, Right Dorsalis Pedis: Normal Neurological/Psych: Oriented x3, Normal Speech, Normal Motor, Normal Sensation ED Course And Treatment - Laboratory Results Result Diagrams: 01/02/19 11:58 01/02/19 11:58 O2 Sat by Pulse Oximetry: 97 (RA) Pulse Ox Interpretation: Normal - Other Rad CXR X-Ray: Viewed By Me, Read By Radiologist Interpretation: Accession No. : [id number]. Patient Name / ID : LIAN HOYT / [id number]. Exam Date : 01/02/2019 11:30:52 ( Approved ). Study Comment : Sex / Age : F / 58Y. Creator : Lonnie Aguiar MD. Dictator : Lonnie Aguiar MD. Astrobiologist : Sign Language Instructor : Lonnie Aguiar MD. Approver2 : Report Date : 01/02/2019 15:48:16. My Comment : . Date of service: 01/02/2019. HISTORY: Code Stroke. COMPARISON: Comparison made with chest radiograph 11/21/2018. TECHNIQUE: 1 view obtained. FINDINGS: Note that cardiac defibrillator pad overlies the left apex and upper lung field partially obscuring fine soft tissue detail. LUNGS: No active pulmonary disease. PLEURA: No significant pleural effusion identified, no pneumothorax apparent. CARDIOVASCULAR: No aortic atherosclerotic calcification present. Normal cardiac size. No pulmonary vascular congestion. OSSEOUS STRUCTURES: No significant abnormalities. V ISUALIZED UPPER ABDOMEN: Normal. OTHER FINDINGS: None. IMPRESSION: No active disease. - CT Scan/US CTA head/neck Other Rad Studies (CT/US): Read By Radiologist, Radiology Report Reviewed CT/US Interpretation: Accession No. : [id number]. Patient Name / ID : LIAN HOYT / [id number]. Exam Date : 01/02/2019 12:54:49 ( Approved ). Study Comment : Sex / Age : F / 58Y. Creator : Lonnie Aguiar MD. Dictator : Lonnie Aguiar MD. Astrobiologist : Sign Language Instructor : Lonnie Aguiar MD. Approver2 : Report Date : 01/02/2019 13:19:22. My Comment : . Date of service: 2019-01-02 12:54:49. PROCEDURE: CT Angiography of the neck and brain. HISTORY: Headache, syncope, right side weakness. COMPARISON: None. TECHNIQUE: Contiguous axial images of the neck and brain were obtained from the level of the vertex of the skull to the superior mediastinum in the arteriographic phase of enhancement. Coronal and sagittal reformats or also generated. IV contrast dose: 100 cc Visipaque 320 contrast material. Radiation dose: Total exam DLP = 686.67 mGy-cm. This CT exam was performed using one or more of the following dose reduction techniques: Automated exposure control, adjustment of the mA and/or kV according to patient size, and/or use of iterative reconstruction technique. FINDINGS: Aorta widely patent despite some very minimal calcified atherosclerotic plaque. There is also some minimal calcified atherosclerotic plaque seen along the origins of the great vessels as well. The common carotid arteries and carotid bifurcations are widely patent without dissection, occlusion or significant stenosis. The internal carotid arteries including the petrous cavernous and supraclinoid segments also widely patent. Both vertebral arteries are patent throughout, right-sided which is larger in caliber/more dominant than the left side. Basilar artery patent. The visualized major branches of the [id number] patent without occlusion nor significant stenosis. The distal of branches of the anterior middle and posterior cerebral arteries are patent and relatively symmetric. No evidence of large aneurysm nor vascular malformation. OTHER FINDINGS: Minor multilevel degenerative spondylosis of the cervical spine. IMPRESSION: No evidence of dissection, occlusion or significant stenosis invol ving the cervical or intra cerebral vasculature as described. CT head Other Rad Studies (CT/US): Read By Radiologist, Radiology Report Reviewed CT/US Interpretation: Accession No. : [id number]. Patient Name / ID : LIAN HOYT / [id number]. Exam Date : 01/02/2019 11:14:57 ( Approved ). Study Comment : Sex / Age : F / 58Y. Creator : Madison Oscar. Dictator : Lonnie Aguiar MD. Astrobiologist : Sign Language Instructor : Lonnie Aguiar MD. Approver2 : Report Date : 01/02/2019 11:20:13. My Comment : . Date of service: 01/02/2019. PROCEDURE: CT HEAD WITHOUT CONTRAST. HISTORY: Code Stroke. COMPARISON: None available. TECHNIQUE: Axial computed tomography images were obtained through the head/brain without intravenous contrast. Radiation dose: Total exam DLP = 1144.26 mGy-cm. This CT exam was performed using one or more of the following dose reduction techniques: Automated exposure control, adjustment of the mA and/or kV according to patient size, and/or use of iterative reconstruction technique. FINDINGS: HEMORRHAGE: No acute parenchymal, subarachnoid or extra-axial hemorrhage. BRAIN: Suspect minor chronic periventricular white matter ischemic changes. In addition, there is a area of low attenuation in the left frontal subcortical white matter is well consistent with an age indeterminate ischemic focus. Vague small area low- attenuation also seen in the right posterior frontal subcortical white matter. Note the possibility of a small hyperacute infarct cannot be excluded on this exam. Mild-moderate generalized volume loss. VENTRICLES: No obstructive hydrocephalus. CALVARIUM: Calvarium intact. PARANASAL SINUSES: Unremarkable as visualized. No significant inflammatory changes. MASTOID AIR CELLS: Unr emarkable as visualized. No inflammatory changes. OTHER FINDINGS: None. IMPRESSION: No acute intracranial hemorrhage. Minor chronic periventricular white matter ischemic changes with scattered subcortical and slightly deeper ischemic changes. Note the possibility of a small hyperacute infarct cannot be excluded on this exam. Mild moderate generalized volume loss. . Findings discussed with Dr. Deluca at approximately 11:28 a.m. with written down and read back verification. NIHSS Stroke Scale 2 - Date/Time Evaluation Performed Date Performed: 01/02/19 Time Performed: 10:59 When Was NIHSS Performed: Baseline - How Severe is the Stroke Level of Consciousness: 0=Alert LOC to Questions: 0=Both comments correct LOC to commands: 0=Obeys both correctly Best Gaze: 0=Normal Visual: 0=No visual loss Facial: 0=Normal Motor Arm - Left: 0=No drift Motor Arm - Right: 1=Drift noted before 10 sec Motor Leg - Left: 0=No drift Motor Leg - Right: 1=Drift before 5 sec Limb Ataxia: 0=Absent Sensory: 0=Normal Best Language: 0=No aphasia Dysarthia: 0=Normal articulation Extinction & Inattention (Neglect): 0=Normal, no object Score: 2 Medical Decision Making Medical Decision Making: Plan - EKG - Bloodwork - CXR - IV fluids - CTA head/neck Code stroke called. Spoke with Dr. Montalvo Disposition Discussed With : Stefanie Montalvo - Disposition Disposition: HOSPITALIZED Disposition Time: 11:42 Condition: GUARDED - Clinical Impression Clinical Impression: Syncope and collapse - PA / SHAREPOINT SPECIALIST / Resident Statement MD/DO has reviewed & agrees with the documentation as recorded. - Scribe Statement The provider has reviewed the documentation as recorded by the Scribjeevan Shepherd All medical record entries made by the Scribe were at my direction and personally dictated by me. I have reviewed the chart and agree that the record accurately reflects my personal performance of the history, physical exam, medical decision making, and the department course for this patient. I have also personally directed, reviewed, and agree with the discharge instructions and disposition. Decision To Admit - Pt Status Changed To: Hospital Disposition Of: Observation - . Bed Request Type: Telemetry Admitting Physician: Bladimir Zuñiga Patient Diagnosis: Syncope and collapse
--- NOTE | 2019-01-02 11:35 | CT ---
Date of service: 01/02/2019 PROCEDURE: CT HEAD WITHOUT CONTRAST. HISTORY: Code Stroke COMPARISON: None available. TECHNIQUE: Axial computed tomography images were obtained through the head/brain without intravenous contrast. Radiation dose: Total exam DLP = 1144.26 mGy-cm. This CT exam was performed using one or more of the following dose reduction techniques: Automated exposure control, adjustment of the mA and/or kV according to patient size, and/or use of iterative reconstruction technique. FINDINGS: HEMORRHAGE: No acute parenchymal, subarachnoid or extra-axial hemorrhage. BRAIN: Suspect minor chronic periventricular white matter ischemic changes. In addition, there is a area of low attenuation in the left frontal subcortical white matter is well consistent with an age indeterminate ischemic focus. Vague small area low-attenuation also seen in the right posterior frontal subcortical white matter. Note the possibility of a small hyperacute infarct cannot be excluded on this exam. Mild-moderate generalized volume loss. VENTRICLES: No obstructive hydrocephalus. CALVARIUM: Calvarium intact PARANASAL SINUSES: Unremarkable as visualized. No significant inflammatory changes. MASTOID AIR CELLS: Unremarkable as visualized. No inflammatory changes. OTHER FINDINGS: None. IMPRESSION: No acute intracranial hemorrhage. Minor chronic periventricular white matter ischemic changes with scattered subcortical and slightly deeper ischemic changes. Note the possibility of a small hyperacute infarct cannot be excluded on this exam. Mild moderate generalized volume loss. . Findings discussed with Dr. Deluca at approximately 11:28 a.m. with written down and read back verification.
[2019-01-02 12:05] LABS: BASO # 0.1 K/uL (0.0-0.2); BASO % 0.8 % (0.0-2.0); EOS # 0.2 K/uL (0.0-0.7); EOS % 2.6 % (0.0-4.0); HEMOGLOBIN 12.7 g/dL (11.0-16.0); LYMPH # 1.6 K/uL (1.0-4.3); LYMPH % 22.1 % (20.0-40.0); MEAN CELL VOLUME 75.3 fL (81.0-99.0); MEAN CORPUSCULAR HEMOGLOBIN 24.9 pg (27.0-31.0); MEAN CORPUSCULAR HGB CONC 33.1 g/dL (33.0-37.0); MEAN PLATELET VOLUME 8.4 fL (7.2-11.7); MONO # 0.4 K/uL (0.0-0.8); MONO % 4.7 % (0.0-10.0); NEUT # 5.2 K/uL (1.8-7.0); NEUT % 69.8 % (50.0-75.0); NRBC % 0.1 % (0.0-2.0); RBC 5.11 Mil/uL (3.80-5.20); RED CELL DISTRIBUTION WIDTH 17.3 % (11.5-14.5); WHITE BLOOD COUNT 7.4 K/uL (4.8-10.8)
[2019-01-02 12:19] LABS: ALBUMIN 4.8 g/dL (3.5-5.0); ALT/SGPT 21 U/L (9-52); AST/SGOT 26 U/L (14-36); BLOOD UREA NITROGEN 15 mg/dL (7-17); CALCIUM 9.9 mg/dl (8.6-10.4); GFR NON-AFRICAN AMERICAN > 60; HDL CHOLESTEROL 48 mg/dL (30-70); INR 1.1; PARTIAL THROMBOPLASTIN TIME 31.7 SECONDS (21-34); PROTHROMBIN TIME 11.7 SECONDS (9.7-12.2)
[2019-01-02 12:29] LABS: LDL CHOLESTEROL 113 mg/dL (0-129)
[2019-01-02 12:30] LABS: B-TYPE NATRIURETIC PEPTIDE < 11.1 pg/mL (0-900)
[2019-01-02] MEDS ORDERED: Iodixanol 320 MG/ML 100 ML BOTTLE IV ONE (12:33)
--- NOTE | 2019-01-02 13:23 | CT ---
Date of service: 2019-01-02 12:54:49 PROCEDURE: CT Angiography of the neck and brain HISTORY: Headache, syncope, right side weakness COMPARISON: None. TECHNIQUE: Contiguous axial images of the neck and brain were obtained from the level of the vertex of the skull to the superior mediastinum in the arteriographic phase of enhancement. Coronal and sagittal reformats or also generated. IV contrast dose: 100 cc Visipaque 320 contrast material. Radiation dose: Total exam DLP = 686.67 mGy-cm. This CT exam was performed using one or more of the following dose reduction techniques: Automated exposure control, adjustment of the mA and/or kV according to patient size, and/or use of iterative reconstruction technique. FINDINGS: Aorta widely patent despite some very minimal calcified atherosclerotic plaque. There is also some minimal calcified atherosclerotic plaque seen along the origins of the great vessels as well. The common carotid arteries and carotid bifurcations are widely patent without dissection, occlusion or significant stenosis. The internal carotid arteries including the petrous cavernous and supraclinoid segments also widely patent. Both vertebral arteries are patent throughout, right-sided which is larger in caliber/more dominant than the left side. Basilar artery patent. The visualized major branches of the [id number] patent without occlusion nor significant stenosis. The distal of branches of the anterior middle and posterior cerebral arteries are patent and relatively symmetric. No evidence of large aneurysm nor vascular malformation. OTHER FINDINGS: Minor multilevel degenerative spondylosis of the cervical spine IMPRESSION: No evidence of dissection, occlusion or significant stenosis involving the cervical or intra cerebral vasculature as described.
--- NOTE | 2019-01-02 15:29 | CP.PCM.HP ---
Past Patient History - Infectious Disease Hx of Infectious Diseases: None - Tetanus Immunizations Tetanus Immunization: Unknown - Past Medical History & Family History Past Medical History?: Yes - Past Social History Smoking Status: Former Smoker - CARDIAC Hx Atrial Fibrillation: Yes Hx Cardia Arrhythmia: Yes Hx Congestive Heart Failure: Yes Hx Hypercholesterolemia: Yes Hx Hypertension: Yes - PULMONARY Hx Chronic Obstructive Pulmonary Disease (COPD): Yes - NEUROLOGICAL Hx Neurological Disorder: Yes HX Cerebrovascular Accident: Yes Hx Dizziness: Yes - HEENT Hx HEENT Problems: Yes Other/Comment: wears glasses for reading - RENAL Hx Chronic Kidney Disease: No - ENDOCRINE/METABOLIC Hx Endocrine Disorders: Yes Hx Diabetes Mellitus Type 1: Yes Hx Diabetes Mellitus Type 2: Yes - HEMATOLOGICAL/ONCOLOGICAL Hx Blood Disorders: No - INTEGUMENTARY Hx Dermatological Problems: Yes Hx Eczema: Yes - MUSCULOSKELETAL/RHEUMATOLOGICAL Hx Arthritis: Yes - GASTROINTESTINAL Hx Gall Bladder Disease: Yes Hx Gastritis: Yes - GENITOURINARY/GYNECOLOGICAL Hx Genitourinary Disorders: No - PSYCHIATRIC Hx Anxiety: Yes Hx Depression: Yes Hx Substance Use: No - SURGICAL HISTORY Hx Cholecystectomy: Yes Hx Coronary Stent: Yes (x2) - ANESTHESIA Hx Anesthesia: Yes Hx Anesthesia Reactions: No Meds Allergies/Adverse Reactions: Allergies Allergy/AdvReac Type Severity Reaction Status Date / Time verapamil Allergy Verified 01/02/19 10:54 escitalopram [From Lexapro] AdvReac ANAPHYLAXIS Verified 01/02/19 10:54 Flu vaccine Allergy ANAPHYLAXIS Uncoded 01/02/19 10:54 pnuemonia vaccine Allergy ANAPHYLAXIS Uncoded 01/02/19 10:54 steroids Allergy Uncoded 01/02/19 10:54 wool Allergy ANAPHYLAXIS Uncoded 01/02/19 10:54 Physical Exam - Constitutional Appears: Well - Head Exam Head Exam: ATRAUMATIC, NORMAL INSPECTION, NORMOCEPHALIC - Eye Exam Eye Exam: EOMI, Normal appearance, PERRL Pupil Exam: NORMAL ACCOMODATION, PERRL - ENT Exam ENT Exam: Mucous Membranes Moist, Normal Exam - Neck Exam Neck exam: Positive for: Normal Inspection - Respiratory Exam Respiratory Exam: Decreased Breath Sounds - Cardiovascular Exam Cardiovascular Exam: REGULAR RHYTHM, +S1, +S2 - GI/Abdominal Exam GI & Abdominal Exam: Diminished Bowel Sounds, Soft - Rectal Exam Rectal Exam: Deferred - Neurological Exam Neurological exam: Oriented x3 Results - Vital Signs Recent Vital Signs: Last Vital Signs Temp 97.7 F 01/02/19 10:49 Pulse 73 01/02/19 13:59 Resp 13 01/02/19 12:18 BP 126/74 01/02/19 12:18 Pulse Ox 100 01/02/19 12:18 - Labs Result Diagrams: 01/02/19 11:58 01/02/19 11:58 Labs: Laboratory Results - last 24 hr 01/02/19 01/02/19 01/02/19 10:56 11:58 11:58 WBC 7.4 RBC 5.11 Hgb 12.7 Hct 38.4 MCV 75.3 L MCH 24.9 L MCHC 33.1 RDW 17.3 H Plt Count 353 MPV 8.4 Neut % (Auto) 69.8 Lymph % (Auto) 22.1 [place] % (Auto) 4.7 Eos % (Auto) 2.6 Baso % (Auto) 0.8 Neut # (Auto) 5.2 Lymph # (Auto) 1.6 [place] # (Auto) 0.4 Eos # (Auto) 0.2 Baso # (Auto) 0.1 PT 11.7 INR 1.1 APTT 31.7 Sodium Potassium Chloride Carbon Dioxide Anion Gap BUN Creatinine Est GFR ( Amer) Est GFR (Non-Af Amer) POC Glucose (mg/dL) 148 H Random Glucose Hemoglobin A1c Calcium Total Bilirubin AST ALT Alkaline Phosphatase Troponin I NT-Pro-B Natriuret Pep Total Protein Albumin Globulin Albumin/Globulin Ratio Triglycerides Cholesterol LDL Cholesterol Direct HDL Cholesterol Blood Type Antibody Screen 01/02/19 01/02/19 01/02/19 11:58 11:58 11:58 WBC RBC Hgb Hct MCV MCH MCHC RDW Plt Count MPV Neut % (Auto) Lymph % (Auto) [place] % (Auto) Eos % (Auto) Baso % (Auto) Neut # (Auto) Lymph # (Auto) [place] # (Auto) Eos # (Auto) Baso # (Auto) PT INR APTT Sodium 142 Potassium 3.8 Chloride 98 Carbon Dioxide 28 Anion Gap 20 BUN 15 Creatinine 0.9 Est GFR ( Amer) > 60 Est GFR (Non-Af Amer) > 60 POC Glucose (mg/dL) Random Glucose 131 H Hemoglobin A1c 6.1 Calcium 9.9 Total Bilirubin 0.4 AST 26 ALT 21 Alkaline Phosphatase 146 H Troponin I < 0.0120 NT-Pro-B Natriuret Pep < 11.1 Total Protein 9.7 H Albumin 4.8 Globulin 4.9 H Albumin/Globulin Ratio 1.0 Triglycerides 102 Cholesterol 213 H LDL Cholesterol Direct 113 HDL Cholesterol 48 Blood Type B POSITIVE Antibody Screen Negative
--- NOTE | 2019-01-02 15:51 | RAD ---
Date of service: 01/02/2019 HISTORY: Code Stroke COMPARISON: Comparison made with chest radiograph 11/21/2018. TECHNIQUE: 1 view obtained. FINDINGS: Note that cardiac defibrillator pad overlies the left apex and upper lung field partially obscuring fine soft tissue detail LUNGS: No active pulmonary disease. PLEURA: No significant pleural effusion identified, no pneumothorax apparent. CARDIOVASCULAR: No aortic atherosclerotic calcification present. Normal cardiac size. No pulmonary vascular congestion. OSSEOUS STRUCTURES: No significant abnormalities. VISUALIZED UPPER ABDOMEN: Normal. OTHER FINDINGS: None. IMPRESSION: No active disease.
[2019-01-02] MEDS ORDERED: Aspirin 325 mg EC Tablets PO SCH (18:00)
[2019-01-02 20:32] LABS: CK-MB 0.43 ng/mL (0.0-3.38)
[2019-01-03 08:44] LABS: BLOOD UREA NITROGEN 18 mg/dL (7-17); CALCIUM 8.9 mg/dl (8.6-10.4); GFR NON-AFRICAN AMERICAN 57; HDL CHOLESTEROL 36 mg/dL (30-70)
[2019-01-03 08:53] LABS: CK-MB 0.45 ng/mL (0.0-3.38)
[2019-01-03 08:56] LABS: LDL CHOLESTEROL 98 mg/dL (0-129)
[2019-01-03] MEDS: Sucralfate 1 gm/10 ml Oral Susp UD PO SCH ×2 (11:08→17:28)
[2019-01-03] MEDS: diltiaZEM 120 mg/24 Hours CD Cap PO SCH (11:10)
[2019-01-03] MEDS: Potassium Chloride 10 mEq ER Tab PO SCH (11:13)
[2019-01-03] MEDS: Metoprolol Succinate 25 mg XL Tab PO SCH (11:15)
[2019-01-03] MEDS: guaiFENesin 600 mg ER Tab PO SCH ×2 (11:16→17:32)
--- NOTE | 2019-01-03 11:17 | CP.PCM.CON ---
History of Present Illness - History of Present Illness History of Present Illness: 58 yo female with a history of multiple hospital admissions for chest pain and palpitations, anxiety, emotional disorder. In all of these admissions, ecg has always been normal echo normal and no arrhythmias noted. pt did have an av node ablation years ago. She is a diabetic, with normal stress tests in the past. Pt had a head ct 2017 that did not show stroke. pt now was at home, felt weak in the knees, fell to the ground without any trauma. Pt could not talk, or :did not want to talks:, was light headed, heard all voices around her. 911 was called and she was brought to the ER. She gradually felt better. Slept poorly last night. A head ct now does not show stroke. patient did not tell me that she had one sided weakness, but the ER MD reports right sided weakness reported by patient. ECG is normal, tni negative, No arrhythmias seen or reported. Review of Systems - Review of Systems All systems: reviewed and no additional remarkable complaints except (mild itch today after receiving IV contrast) Past Patient History - Infectious Disease Hx of Infectious Diseases: None - Tetanus Immunizations Tetanus Immunization: Unknown - Past Medical History & Family History Past Medical History?: Yes - Past Social History Smoking Status: Former Smoker - CARDIAC Hx Atrial Fibrillation: Yes Hx Cardia Arrhythmia: Yes Hx Congestive Heart Failure: Yes Hx Hypercholesterolemia: Yes Hx Hypertension: Yes - PULMONARY Hx Chronic Obstructive Pulmonary Disease (COPD): Yes - NEUROLOGICAL Hx Neurological Disorder: Yes HX Cerebrovascular Accident: Yes Hx Dizziness: Yes - HEENT Hx HEENT Problems: Yes Other/Comment: wears glasses for reading - RENAL Hx Chronic Kidney Disease: No - ENDOCRINE/METABOLIC Hx Endocrine Disorders: Yes Hx Diabetes Mellitus Type 1: Yes Hx Diabetes Mellitus Type 2: Yes - HEMATOLOGICAL/ONCOLOGICAL Hx Blood Disorders: No - INTEGUMENTARY Hx Dermatological Problems: Yes Hx Eczema: Yes - MUSCULOSKELETAL/RHEUMATOLOGICAL Hx Arthritis: Yes - GASTROINTESTINAL Hx Gall Bladder Disease: Yes Hx Gastritis: Yes - GENITOURINARY/GYNECOLOGICAL Hx Genitourinary Disorders: No - PSYCHIATRIC Hx Anxiety: Yes Hx Depression: Yes Hx Substance Use: No - SURGICAL HISTORY Hx Cholecystectomy: Yes Hx Coronary Stent: Yes (x2) - ANESTHESIA Hx Anesthesia: Yes Hx Anesthesia Reactions: No Meds Allergies/Adverse Reactions: Allergies Allergy/AdvReac Type Severity Reaction Status Date / Time verapamil Allergy Verified 01/02/19 10:54 escitalopram [From Lexapro] AdvReac ANAPHYLAXIS Verified 01/02/19 10:54 Flu vaccine Allergy ANAPHYLAXIS Uncoded 01/02/19 10:54 pnuemonia vaccine Allergy ANAPHYLAXIS Uncoded 01/02/19 10:54 steroids Allergy Uncoded 01/02/19 10:54 wool Allergy ANAPHYLAXIS Uncoded 01/02/19 10:54 - Medications Medications: Current Medications Acetaminophen (Tylenol 325mg Tab) 650 mg PO Q6 PRN PRN Reason: Headache Last Admin: 01/02/19 22:36 Dose: 650 mg Aspirin (Ecotrin) 325 mg PO DAILY [facility] Last Admin: 01/02/19 17:35 Dose: 325 mg Aspirin (Aspirin) 325 mg PO DAILY [facility] Clonazepam (Klonopin) 1 mg PO TID [facility] Diltiazem HCl (Cardizem Cd) 120 mg PO DAILY [facility] Gabapentin (Neurontin) 100 mg PO TID [facility] Guaifenesin (Mucinex La) 600 mg PO BID [facility] Heparin Sodium (Porcine) (Heparin) 5,000 units SC Q12 [facility] Hydrochlorothiazide (Hydrodiuril) 25 mg PO DAILY [facility] Hydroxyzine HCl (Atarax) 25 mg PO TID [facility] Losartan Potassium (Cozaar) 100 mg PO DAILY [facility] Metformin HCl (Glucophage) 500 mg PO DAILY [facility] Metoprolol Succinate (Toprol Xl) 25 mg PO DAILY [facility] Montelukast Sodium (Singulair) 10 mg PO HS [facility] Potassium Chloride (Klor-Con 10) 10 meq PO DAILY [facility] Rosuvastatin Calcium (Crestor) 10 mg PO HS [facility] Last Admin: 01/02/19 21:15 Dose: 10 mg Sucralfate (Carafate Oral Susp) 1 gm PO TID [facility] Temazepam (Restoril) 15 mg PO HS PRN PRN Reason: Insomnia Last Admin: 01/02/19 21:15 Dose: 15 mg Physical Exam - Constitutional Appears: Well - Head Exam Head Exam: ATRAUMATIC - Eye Exam Eye Exam: EOMI - ENT Exam ENT Exam: Mucous Membranes Moist - Neck Exam Neck exam: Positive for: Normal Inspection - Respiratory Exam Respiratory Exam: Clear to Auscultation Bilateral - Cardiovascular Exam Cardiovascular Exam: REGULAR RHYTHM - Rectal Exam Rectal Exam: NORMAL INSPECTION - Extremities Exam Extremities exam: Positive for: normal inspection - Back Exam Back exam: NORMAL INSPECTION - Neurological Exam Neurological exam: Alert, CN II-XII Intact, Oriented x3, Reflexes Normal - Psychiatric Exam Psychiatric exam: Anxious - Skin Skin Exam: Normal Color Results - Vital Signs Recent Vital Signs: Last Vital Signs Temp 98.3 F 01/03/19 07:30 Pulse 84 01/03/19 08:54 Resp 20 01/03/19 07:30 BP 119/80 01/03/19 07:30 Pulse Ox 98 01/03/19 08:54 - Labs Result Diagrams: 01/02/19 11:58 01/03/19 07:34 Labs: Laboratory Results - last 24 hr 01/02/19 01/02/19 01/02/19 11:58 11:58 11:58 WBC 7.4 RBC 5.11 Hgb 12.7 Hct 38.4 MCV 75.3 L MCH 24.9 L MCHC 33.1 RDW 17.3 H Plt Count 353 MPV 8.4 Neut % (Auto) 69.8 Lymph % (Auto) 22.1 [place] % (Auto) 4.7 Eos % (Auto) 2.6 Baso % (Auto) 0.8 Neut # (Auto) 5.2 Lymph # (Auto) 1.6 [place] # (Auto) 0.4 Eos # (Auto) 0.2 Baso # (Auto) 0.1 PT 11.7 INR 1.1 APTT 31.7 Sodium 142 Potassium 3.8 Chloride 98 Carbon Dioxide 28 Anion Gap 20 BUN 15 Creatinine 0.9 Est GFR ( Amer) > 60 Est GFR (Non-Af Amer) > 60 POC Glucose (mg/dL) Random Glucose 131 H Hemoglobin A1c Calcium 9.9 Total Bilirubin 0.4 AST 26 ALT 21 Alkaline Phosphatase 146 H Total Creatine Kinase CK-MB (Mass) Troponin I < 0.0120 NT-Pro-B Natriuret Pep < 11.1 Total Protein 9.7 H Albumin 4.8 Globulin 4.9 H Albumin/Globulin Ratio 1.0 Triglycerides 102 Cholesterol 213 H LDL Cholesterol Direct 113 HDL Cholesterol 48 TSH 3rd Generation Blood Type Antibody Screen 01/02/19 01/02/19 01/02/19 11:58 11:58 17:17 WBC RBC Hgb Hct MCV MCH MCHC RDW Plt Count MPV Neut % (Auto) Lymph % (Auto) [place] % (Auto) Eos % (Auto) Baso % (Auto) Neut # (Auto) Lymph # (Auto) [place] # (Auto) Eos # (Auto) Baso # (Auto) PT INR APTT Sodium Potassium Chloride Carbon Dioxide Anion Gap BUN Creatinine Est GFR ( Amer) Est GFR (Non-Af Amer) POC Glucose (mg/dL) 99 Random Glucose Hemoglobin A1c 6.1 Calcium Total Bilirubin AST ALT Alkaline Phosphatase Total Creatine Kinase CK-MB (Mass) Troponin I NT-Pro-B Natriuret Pep Total Protein Albumin Globulin Albumin/Globulin Ratio Triglycerides Cholesterol LDL Cholesterol Direct HDL Cholesterol TSH 3rd Generation Blood Type B POSITIVE Antibody Screen Negative 01/02/19 01/02/19 01/03/19 19:47 21:57 06:30 WBC RBC Hgb Hct MCV MCH MCHC RDW Plt Count MPV Neut % (Auto) Lymph % (Auto) [place] % (Auto) Eos % (Auto) Baso % (Auto) Neut # (Auto) Lymph # (Auto) [place] # (Auto) Eos # (Auto) Baso # (Auto) PT INR APTT Sodium Potassium Chloride Carbon Dioxide Anion Gap BUN Creatinine Est GFR ( Amer) Est GFR (Non-Af Amer) POC Glucose (mg/dL) 118 H 159 H Random Glucose Hemoglobin A1c Calcium Total Bilirubin AST ALT Alkaline Phosphatase Total Creatine Kinase 82 CK-MB (Mass) 0.43 Troponin I < 0.0120 NT-Pro-B Natriuret Pep Total Protein Albumin Globulin Albumin/Globulin Ratio Triglycerides Cholesterol LDL Cholesterol Direct HDL Cholesterol TSH 3rd Generation Blood Type Antibody Screen 01/03/19 01/03/19 07:34 07:34 WBC RBC Hgb Hct MCV MCH MCHC RDW Plt Count MPV Neut % (Auto) Lymph % (Auto) [place] % (Auto) Eos % (Auto) Baso % (Auto) Neut # (Auto) Lymph # (Auto) [place] # (Auto) Eos # (Auto) Baso # (Auto) PT INR APTT Sodium 138 Potassium 3.1 L Chloride 102 Carbon Dioxide 24 Anion Gap 15 BUN 18 H Creatinine 1.0 Est GFR ( Amer) > 60 Est GFR (Non-Af Amer) 57 POC Glucose (mg/dL) Random Glucose 153 H Hemoglobin A1c 6.0 Calcium 8.9 Total Bilirubin AST ALT Alkaline Phosphatase Total Creatine Kinase 89 CK-MB (Mass) 0.45 Troponin I < 0.0120 NT-Pro-B Natriuret Pep Total Protein Albumin Globulin Albumin/Globulin Ratio Triglycerides 106 Cholesterol 172 LDL Cholesterol Direct 98 HDL Cholesterol 36 TSH 3rd Generation 0.73 Blood Type Antibody Screen - EKG Data EKG Interpreted by: Myself (normal) EKG shows normal: Sinus rhythm Rate: Normal Assessment & Plan - Assessment and Plan (Free Text) Assessment: 1. Pt lost strength in her legs, but did not have true syncope: never actually lost consciousness. No arrhythmia seen. if neuro evaluates patient and feels that the patient did indeed have a neurological even, then we can consider a loop recorder, as the patient did have an av node ablation in the past.
--- NOTE | 2019-01-03 13:16 | CP.PCM.CON ---
<Shiraz Shell - Last Filed: 01/03/19 15:18> History of Present Illness - History of Present Illness History of Present Illness: PGY-1 Neurology consult note for Dr Gama Patient is 58 year old female with past medical history of COPD , HTN, DM, CAD, previous stroke with residual right side weakness, GERD admitted to the hospital on 01/02 for dizziness. Patient states she started to feel weak and fatigue on thursday, however on thursday, she felt dizzy and felt very weak, which led her to fall down. Admits to having blurry vision and chest pain at that time. Patient is not able to tell if she lost consciousness, however states she was able to hear people talking. Patient denies having any speech difficulty, admits to tremor in lower lip bilaterally that comes and goes. Patient has history of stroke 10 years ago with residual rt side weakness on right arm and right leg. Patient denies history of seizure. Patient takes ASA at home daily. Pmhx/shx: as stated above, ablation sx, cardiac cath sx, tubal ligation All: Wool, flu vaccine, PNA vaccine, verapamil, steroids Meds: ASA 81mg, Gabapentin, Clonazepam, Atarax, restoril (see med record) Sochx: former smoker, quit 2004, denies alcohol or drugs, lives with family Fhx: stroke (son, daugther) Past Patient History - Infectious Disease Hx of Infectious Diseases: None - Tetanus Immunizations Tetanus Immunization: Unknown - Past Medical History & Family History Past Medical History?: Yes - Past Social History Smoking Status: Former Smoker - CARDIAC Hx Atrial Fibrillation: Yes Hx Cardia Arrhythmia: Yes Hx Congestive Heart Failure: Yes Hx Hypercholesterolemia: Yes Hx Hypertension: Yes - PULMONARY Hx Chronic Obstructive Pulmonary Disease (COPD): Yes - NEUROLOGICAL Hx Neurological Disorder: Yes HX Cerebrovascular Accident: Yes Hx Dizziness: Yes - HEENT Hx HEENT Problems: Yes Other/Comment: wears glasses for reading - RENAL Hx Chronic Kidney Disease: No - ENDOCRINE/METABOLIC Hx Endocrine Disorders: Yes Hx Diabetes Mellitus Type 1: Yes Hx Diabetes Mellitus Type 2: Yes - HEMATOLOGICAL/ONCOLOGICAL Hx Blood Disorders: No - INTEGUMENTARY Hx Dermatological Problems: Yes Hx Eczema: Yes - MUSCULOSKELETAL/RHEUMATOLOGICAL Hx Arthritis: Yes - GASTROINTESTINAL Hx Gall Bladder Disease: Yes Hx Gastritis: Yes - GENITOURINARY/GYNECOLOGICAL Hx Genitourinary Disorders: No - PSYCHIATRIC Hx Anxiety: Yes Hx Depression: Yes Hx Substance Use: No - SURGICAL HISTORY Hx Cholecystectomy: Yes Hx Coronary Stent: Yes (x2) - ANESTHESIA Hx Anesthesia: Yes Hx Anesthesia Reactions: No Meds Allergies/Adverse Reactions: Allergies Allergy/AdvReac Type Severity Reaction Status Date / Time verapamil Allergy Verified 01/02/19 10:54 escitalopram [From Lexapro] AdvReac ANAPHYLAXIS Verified 01/02/19 10:54 Flu vaccine Allergy ANAPHYLAXIS Uncoded 01/02/19 10:54 pnuemonia vaccine Allergy ANAPHYLAXIS Uncoded 01/02/19 10:54 steroids Allergy Uncoded 01/02/19 10:54 wool Allergy ANAPHYLAXIS Uncoded 01/02/19 10:54 - Medications Medications: Current Medications Acetaminophen (Tylenol 325mg Tab) 650 mg PO Q6 PRN PRN Reason: Headache Last Admin: 01/02/19 22:36 Dose: 650 mg Aspirin (Aspirin) 325 mg PO DAILY [facility] Last Admin: 01/03/19 11:09 Dose: 325 mg Clonazepam (Klonopin) 1 mg PO TID [facility] Last Admin: 01/03/19 11:33 Dose: 1 mg Diltiazem HCl (Cardizem Cd) 120 mg PO DAILY [facility] Last Admin: 01/03/19 11:10 Dose: 120 mg Gabapentin (Neurontin) 100 mg PO TID [facility] Last Admin: 01/03/19 11:15 Dose: 100 mg Guaifenesin (Mucinex La) 600 mg PO BID [facility] Last Admin: 01/03/19 11:16 Dose: Not Given Heparin Sodium (Porcine) (Heparin) 5,000 units SC Q12 [facility] Last Admin: 01/03/19 11:13 Dose: 5,000 units Hydrochlorothiazide (Hydrodiuril) 25 mg PO DAILY [facility] Hydroxyzine HCl (Atarax) 25 mg PO TID [facility] Last Admin: 01/03/19 11:09 Dose: Not Given Losartan Potassium (Cozaar) 100 mg PO DAILY [facility] Last Admin: 01/03/19 11:11 Dose: 100 mg Metformin HCl (Glucophage) 500 mg PO DAILY [facility] Last Admin: 01/03/19 11:13 Dose: Not Given Metoprolol Succinate (Toprol Xl) 25 mg PO DAILY [facility] Last Admin: 01/03/19 11:15 Dose: 25 mg Montelukast Sodium (Singulair) 10 mg PO [facility] Potassium Chloride (Klor-Con 10) 10 meq PO DAILY [facility] Last Admin: 01/03/19 11:13 Dose: 10 meq Rosuvastatin Calcium (Crestor) 10 mg PO HS [facility] Last Admin: 01/02/19 21:15 Dose: 10 mg Sucralfate (Carafate Oral Susp) 1 gm PO TID [facility] Last Admin: 01/03/19 11:08 Dose: 1 gm Temazepam (Restoril) 15 mg PO HS PRN PRN Reason: Insomnia Last Admin: 01/02/19 21:15 Dose: 15 mg Physical Exam - Constitutional Appears: Non-toxic, No Acute Distress - Head Exam Head Exam: ATRAUMATIC, NORMAL INSPECTION, NORMOCEPHALIC - Eye Exam Eye Exam: EOMI, Normal appearance, PERRL Pupil Exam: NORMAL ACCOMODATION - ENT Exam ENT Exam: Mucous Membranes Moist, Normal Exam - Respiratory Exam Respiratory Exam: NORMAL BREATHING PATTERN - Neurological Exam Neurological exam: Alert, CN II-XII Intact, Reflexes Normal - Expanded Neurological Exam Expanded Patient oriented to: person, place Cranial nerves: EOM's Intact: Normal, Facial Palsey w/Forehead Movement: Normal, Facial [place] w/o Forehead Movement: Normal, Facial Sensation: Normal, Nystagmus: Normal, Tongue Deviation: Normal Cerebellar Function: Finger to Nose: Normal Upper motor neuron: Pronator Drift: Normal Sensory exam: Lower Extremity Light Touch: Normal, Upper Extremity Light Touch: Normal Neuro motor strength exam: Left Upper Extremity: 5, Right Upper Extremity: 3, Left Lower Extremity: 5, Right Lower Extremity: 4 - Psychiatric Exam Psychiatric exam: Anxious - Skin Skin Exam: Normal Color Results - Vital Signs Recent Vital Signs: Last Vital Signs Temp 98.3 F 01/03/19 07:30 Pulse 84 01/03/19 08:54 Resp 20 01/03/19 07:30 BP 119/80 01/03/19 07:30 Pulse Ox 98 01/03/19 08:54 - Labs Result Diagrams: 01/02/19 11:58 01/03/19 07:34 Labs: Laboratory Results - last 24 hr 01/02/19 01/02/19 01/02/19 17:17 19:47 21:57 Sodium Potassium Chloride Carbon Dioxide Anion Gap BUN Creatinine Est GFR ( Amer) Est GFR (Non-Af Amer) POC Glucose (mg/dL) 99 118 H Random Glucose Hemoglobin A1c Calcium Total Creatine Kinase 82 CK-MB (Mass) 0.43 Troponin I < 0.0120 Triglycerides Cholesterol LDL Cholesterol Direct HDL Cholesterol TSH 3rd Generation 01/03/19 01/03/19 01/03/19 06:30 07:34 07:34 Sodium 138 Potassium 3.1 L Chloride 102 Carbon Dioxide 24 Anion Gap 15 BUN 18 H Creatinine 1.0 Est GFR ( Amer) > 60 Est GFR (Non-Af Amer) 57 POC Glucose (mg/dL) 159 H Random Glucose 153 H Hemoglobin A1c 6.0 Calcium 8.9 Total Creatine Kinase 89 CK-MB (Mass) 0.45 Troponin I < 0.0120 Triglycerides 106 Cholesterol 172 LDL Cholesterol Direct 98 HDL Cholesterol 36 TSH 3rd Generation 0.73 01/03/19 11:41 Sodium Potassium Chloride Carbon Dioxide Anion Gap BUN Creatinine Est GFR ( Amer) Est GFR (Non-Af Amer) POC Glucose (mg/dL) 136 H Random Glucose Hemoglobin A1c Calcium Total Creatine Kinase CK-MB (Mass) Troponin I Triglycerides Cholesterol LDL Cholesterol Direct HDL Cholesterol TSH 3rd Generation Assessment & Plan - Assessment and Plan (Free Text) Plan: 58 year old with pmhx of prior stroke with rt side residual weakness, neuro consulted for dizziness. CT head shows no acute intracranial hemorrhage, chronic perventricular white matter changes, head CTA/neck negative for dissection, occlusion, stenosis in cervical/intracerebral vasculature. Brain MRI unable to perform due to patient's body size. 1. Start plavix 75 mg PO Daily 2. D/c ASA 325, start ASA 81 mg po daily 3. will continue plavix and ASA for 3 weeks, then stop ASA 4. Continue Crestor 10 mg PO HS 5. repeat CT head w/o contrast tomorrow 6. PT/OT Plan d/w Dr Gama - Date & Time Date: 01/03/19 Time: 13:00 <Steve Gama - Last Filed: 01/07/19 18:57> Results - Vital Signs Recent Vital Signs: Last Vital Signs Temp 97.8 F 01/06/19 07:59 Pulse 86 01/06/19 07:59 Resp 20 01/06/19 07:59 BP 110/76 01/06/19 07:59 Pulse Ox 98 01/06/19 08:00 - Labs Result Diagrams: 01/05/19 07:43 01/05/19 07:43 Attending/Attestation - Attestation I have personally seen and examined this patient.: Yes I have fully participated in the care of the patient.: Yes I have reviewed all pertinent clinical information: Yes Notes (Text): I agree with the assessment and plan as outlined above.
--- NOTE | 2019-01-03 17:51 | CARD ---
APPROVED REPORT Date of service: 01/02/2019 EKG Measurement Heart [id number] <Conclusion> Normal sinus rhythm Normal ECG
--- NOTE | 2019-01-03 21:16 | CP.PCM.PN ---
Subjective - Date & Time of Evaluation Date of Evaluation: 01/03/19 - Subjective Subjective: patient examined today no nausea, no vomiting, no dizziness, no diarrhea, no fever, no shortness of breath Objective - Vital Signs/Intake and Output Vital Signs (last 24 hours): Temp Pulse Resp BP Pulse Ox 98.6 F 90 20 93/61 L 97 01/03/19 16:00 01/03/19 16:20 01/03/19 16:00 01/03/19 16:00 01/03/19 16:00 - Medications Medications: Current Medications Acetaminophen (Tylenol 325mg Tab) 650 mg PO Q6 PRN PRN Reason: Headache Last Admin: 01/02/19 22:36 Dose: 650 mg Aspirin (Aspirin Chewable) 81 mg PO DAILY [facility] Clonazepam (Klonopin) 1 mg PO TID [facility] Last Admin: 01/03/19 17:29 Dose: 1 mg Clopidogrel Bisulfate (Plavix) 75 mg PO DAILY [facility] Diltiazem HCl (Cardizem Cd) 120 mg PO DAILY [facility] Last Admin: 01/03/19 11:10 Dose: 120 mg Gabapentin (Neurontin) 100 mg PO TID [facility] Last Admin: 01/03/19 17:31 Dose: 100 mg Guaifenesin (Mucinex La) 600 mg PO BID [facility] Last Admin: 01/03/19 17:32 Dose: Not Given Heparin Sodium (Porcine) (Heparin) 5,000 units SC Q12 [facility] Last Admin: 01/03/19 11:13 Dose: 5,000 units Hydrochlorothiazide (Hydrodiuril) 25 mg PO DAILY [facility] Hydroxyzine HCl (Atarax) 25 mg PO TID [facility] Last Admin: 01/03/19 17:27 Dose: Not Given Losartan Potassium (Cozaar) 100 mg PO DAILY [facility] Last Admin: 01/03/19 11:11 Dose: 100 mg Metformin HCl (Glucophage) 500 mg PO DAILY [facility] Last Admin: 01/03/19 11:13 Dose: Not Given Metoprolol Succinate (Toprol Xl) 25 mg PO DAILY [facility] Last Admin: 01/03/19 11:15 Dose: 25 mg Montelukast Sodium (Singulair) 10 mg PO [facility] Potassium Chloride (Klor-Con 10) 10 meq PO DAILY [facility] Last Admin: 01/03/19 11:13 Dose: 10 meq Rosuvastatin Calcium (Crestor) 10 mg PO HS [facility] Last Admin: 01/02/19 21:15 Dose: 10 mg Sucralfate (Carafate Oral Susp) 1 gm PO TID [facility] Last Admin: 01/03/19 17:28 Dose: 1 gm Temazepam (Restoril) 15 mg PO HS PRN PRN Reason: Insomnia Last Admin: 01/02/19 21:15 Dose: 15 mg - Labs Labs: 01/02/19 11:58 01/03/19 07:34 PT 11.7 SECONDS (9.7-12.2) 01/02/19 11:58 INR 1.1 01/02/19 11:58 APTT 31.7 SECONDS (21-34) 01/02/19 11:58 - Constitutional Appears: Well - Head Exam Head Exam: ATRAUMATIC, NORMAL INSPECTION, NORMOCEPHALIC - Eye Exam Eye Exam: EOMI, Normal appearance, PERRL Pupil Exam: NORMAL ACCOMODATION, PERRL - ENT Exam ENT Exam: Mucous Membranes Moist, Normal Exam - Neck Exam Neck Exam: Full ROM, Normal Inspection. absent: Lymphadenopathy - Respiratory Exam Respiratory Exam: Decreased Breath Sounds - Cardiovascular Exam Cardiovascular Exam: REGULAR RHYTHM, +S1, +S2 - GI/Abdominal Exam GI & Abdominal Exam: Soft, Diminished Bowel Sounds - Rectal Exam Rectal Exam: Deferred - Neurological Exam Neurological Exam: Oriented x3 Assessment and Plan - Assessment and Plan (Free Text) Plan: plan discussed with patient moderate complexity of care medications reviewed labs reviewed vitals reviewed aspirin chewable atarax carafate oral susp cardizem cd cozaar crestor glucophage heparin hydrodiuril klonopin klor-con muscinex la neurontin plavix restoril singulair toprol xl tylenol
[2019-01-04] MEDS: Potassium Chloride 20 mEq ER Tab PO SCH ×2 (00:43→04:50)
--- NOTE | 2019-01-04 07:31 | CP.PCM.PN ---
Subjective - Date & Time of Evaluation Date of Evaluation: 01/04/19 Time of Evaluation: 07:29 - Subjective Subjective: 58 year old female with past medical history of COPD , HTN, DM, CAD, previous stroke with residual right side weakness, GERD admitted to the hospital on 01/02 for dizziness. Patient states she was at home when she began to feel her legs get week and started to feel dizzy. Patient states she went upstairs and subsequently began to have mid-sternal chest pain and blurry vision. Patient unable to determine if she lost conciousness, however states she could hear her family members around her. Patient denies any history of seizures. Patient denies any abdominal pain, palpitaitons, fevers, chills, or any other complaints. Surgical history: as stated above, ablation sx, cardiac cath sx, tubal ligation All: Wool, flu vaccine, PNA vaccine, verapamil, steroids Meds: ASA 81mg, Gabapentin, Clonazepam, Atarax, restoril (see med record) Sochx: former smoker, quit 2004, denies alcohol or drugs, lives with family Fhx: stroke (son, daugther) Objective - Vital Signs/Intake and Output Vital Signs (last 24 hours): Temp Pulse Resp BP Pulse Ox 98.4 F 91 H 18 105/68 95 01/03/19 23:21 01/03/19 23:21 01/03/19 23:21 01/03/19 23:21 01/03/19 23:21 Intake and Output: 01/04/19 01/04/19 06:59 18:59 Intake Total 400 Balance 400 - Medications Medications: Current Medications Acetaminophen (Tylenol 325mg Tab) 650 mg PO Q6 PRN PRN Reason: Headache Last Admin: 01/02/19 22:36 Dose: 650 mg Aspirin (Aspirin Chewable) 81 mg PO DAILY [facility] Clonazepam (Klonopin) 1 mg PO TID [facility] Last Admin: 01/03/19 17:29 Dose: 1 mg Clopidogrel Bisulfate (Plavix) 75 mg PO DAILY [facility] Diltiazem HCl (Cardizem Cd) 120 mg PO DAILY [facility] Last Admin: 01/03/19 11:10 Dose: 120 mg Gabapentin (Neurontin) 100 mg PO TID [facility] Last Admin: 01/03/19 17:31 Dose: 100 mg Guaifenesin (Mucinex La) 600 mg PO BID [facility] Last Admin: 01/03/19 17:32 Dose: Not Given Heparin Sodium (Porcine) (Heparin) 5,000 units SC Q12 [facility] Last Admin: 01/03/19 22:23 Dose: 5,000 units Hydrochlorothiazide (Hydrodiuril) 25 mg PO DAILY [facility] Hydroxyzine HCl (Atarax) 25 mg PO TID [facility] Last Admin: 01/03/19 17:27 Dose: Not Given Losartan Potassium (Cozaar) 100 mg PO DAILY [facility] Last Admin: 01/03/19 11:11 Dose: 100 mg Metformin HCl (Glucophage) 500 mg PO DAILY [facility] Last Admin: 01/03/19 11:13 Dose: Not Given Metoprolol Succinate (Toprol Xl) 25 mg PO DAILY [facility] Last Admin: 01/03/19 11:15 Dose: 25 mg Montelukast Sodium (Singulair) 10 mg PO HS [facility] Last Admin: 01/03/19 22:18 Dose: 10 mg Potassium Chloride (Klor-Con 10) 10 meq PO DAILY [facility] Last Admin: 01/03/19 11:13 Dose: 10 meq Rosuvastatin Calcium (Crestor) 10 mg PO HS [facility] Last Admin: 01/03/19 22:19 Dose: 10 mg Sucralfate (Carafate Oral Susp) 1 gm PO TID [facility] Last Admin: 01/03/19 17:28 Dose: 1 gm Temazepam (Restoril) 15 mg PO HS PRN PRN Reason: Insomnia Last Admin: 01/02/19 21:15 Dose: 15 mg - Labs Labs: 01/02/19 11:58 01/03/19 07:34 PT 11.7 SECONDS (9.7-12.2) 01/02/19 11:58 INR 1.1 01/02/19 11:58 APTT 31.7 SECONDS (21-34) 01/02/19 11:58 - Head Exam Head Exam: ATRAUMATIC, NORMAL INSPECTION - Eye Exam Eye Exam: Normal appearance Pupil Exam: NORMAL ACCOMODATION, PERRL - ENT Exam ENT Exam: Mucous Membranes Moist, Normal Exam. absent: Normal External Ear Exam - Neck Exam Neck Exam: Normal Inspection - Respiratory Exam Respiratory Exam: Clear to Ausculation Bilateral, NORMAL BREATHING PATTERN. absent: Stridor - Cardiovascular Exam Cardiovascular Exam: REGULAR RHYTHM, +S1, +S2. absent: Clicks, +S4, Murmur - GI/Abdominal Exam GI & Abdominal Exam: Soft, Normal Bowel Sounds. absent: Tenderness, Mass - Extremities Exam Extremities Exam: Normal Capillary Refill, Normal Inspection - Back Exam Back Exam: absent: CVA tenderness (L), CVA tenderness (R) - Neurological Exam Neurological Exam: Alert, Awake, CN II-XII Intact, Oriented x3 - Psychiatric Exam Psychiatric exam: Normal Affect, Normal Mood - Skin Skin Exam: Dry, Intact, Normal Color, Warm Assessment and Plan - Assessment and Plan (Free Text) Assessment: 58 year old female with past medical history of COPD , HTN, DM, CAD, previous stroke with residual right side weakness, GERD admitted to the hospital on 01/02 for dizziness. Plan: 1.Syncopal episode Head ct:No acute intracranial hemorrhage. Minor chronic periventricular white matter ischemic changes with scattered subcortical and slightly deeper ischemic changes. Note the possibility of a small hyperacute infarct cannot be excluded on this exam. Mild moderate generalized volume loss. Repeat head ct (01/04/19):No acute intracranial hemorrhage. Chronic microvascular ischemic change. Focal areas of low attenuation in the left frontal subcortical white matter as well as the posterior right frontal subcortical white matter as described above which may represent age-indeterminate ischemic change. If symptoms persist, or there is persistent concern for acute ischemic change, consider correlation with diffusion-weighted MRI. Head/neck CTA:No evidence of dissection, occlusion or significant stenosis involving the cervical or intra cerebral vasculature as described. Neurology Dr. Gama consulted--> Help appreciated :1. Start plavix 75 mg PO Daily 2. D/c ASA 325, start ASA 81 mg po daily 3. will continue plavix and ASA for 3 weeks, then stop ASA 4. Continue Crestor 10 mg PO HS 5. repeat CT head w/o contrast tomorrow 6. PT/OT Medications: Aspirin 81mg PO DAILY Plavix 75mg PO DAILY 2. hx of Hypertension -Continue Losartan 100mg PO DAILY -Continue Hydrochlorothiazide 25mg PO DAILY 3. hX of Atrial fibrillation -s/p Ablation -Continue Caridzem 120mg PO DAILY -Continue Metoprolol 25mg PO DAILY 4.hx of Hyperlipidemia -Cotinue Rosuvastatin 10mg PO HS 5.hx of Diabetes Mellitus -Contiue Metformin 500mg PO DAILY 6.hx of Anxiety -Continue Klonopin 1mg PO TID -Cotoniue Atarax 25mg PO TID 7.hx of COPD -Continue Singuilari 10mg PO HS 8. hx of Insomnia -Cotinue Restoril 15mg PO HS PRN 9.Hypokalemis -Repleted. Will monitor with repeat CMP. PPX -Heparin -GI ppx not indicated at this time. Dispo: Likely to be discharged tomorrow after Physical therapy. Plan discussed with Attending Dr. Contreras Serrano, PGY-2
--- NOTE | 2019-01-04 08:21 | CT ---
Date of service: 01/04/2019 PROCEDURE: CT HEAD WITHOUT CONTRAST. HISTORY: dizziness, history of stroke COMPARISON: 01/02/2019 TECHNIQUE: Axial computed tomography images were obtained through the head/brain without intravenous contrast. Radiation dose: Total exam DLP = 1017.0 mGy-cm. This CT exam was performed using one or more of the following dose reduction techniques: Automated exposure control, adjustment of the mA and/or kV according to patient size, and/or use of iterative reconstruction technique. FINDINGS: HEMORRHAGE: No intracranial hemorrhage. BRAIN: No mass effect or edema. Scattered focal lucencies in the subcortical and periventricular white matter suggestive for chronic microvascular ischemic change. Diffuse generalized parenchymal atrophy. Persistent focal area of low attenuation in the left frontal subcortical matter as demonstrated on series 2, images 13-16 which may represent age-indeterminate ischemic change. Additional punctate low-attenuation foci seen within the right posterior frontal subcortical white matter on series 2, image 14. These areas would be better delineated with diffusion-weighted MRI if clinically indicated. VENTRICLES: Unremarkable. No hydrocephalus. CALVARIUM: Unremarkable. PARANASAL SINUSES: Unremarkable as visualized. No significant inflammatory changes. MASTOID AIR CELLS: Unremarkable as visualized. No inflammatory changes. OTHER FINDINGS: None. IMPRESSION: No acute intracranial hemorrhage. Chronic microvascular ischemic change. Focal areas of low attenuation in the left frontal subcortical white matter as well as the posterior right frontal subcortical white matter as described above which may represent age-indeterminate ischemic change. If symptoms persist, or there is persistent concern for acute ischemic change, consider correlation with diffusion-weighted MRI.
[2019-01-04 08:32] LABS: BASO % 0.5 % (0.0-2.0); EOS # 0.5 K/uL (0.0-0.7); EOS % 5.5 % (0.0-4.0); HEMOGLOBIN 11.9 g/dL (11.0-16.0); LYMPH # 1.4 K/uL (1.0-4.3); LYMPH % 16.3 % (20.0-40.0); MEAN CELL VOLUME 75.7 fL (81.0-99.0); MEAN CORPUSCULAR HEMOGLOBIN 24.9 pg (27.0-31.0); MEAN CORPUSCULAR HGB CONC 32.8 g/dL (33.0-37.0); MEAN PLATELET VOLUME 9.1 fL (7.2-11.7); MONO # 0.6 K/uL (0.0-0.8); MONO % 6.3 % (0.0-10.0); NEUT # 6.3 K/uL (1.8-7.0); NEUT % 71.4 % (50.0-75.0); NRBC % 0.1 % (0.0-2.0); RBC 4.8 Mil/uL (3.80-5.20); RED CELL DISTRIBUTION WIDTH 17.6 % (11.5-14.5); WHITE BLOOD COUNT 8.8 K/uL (4.8-10.8)
[2019-01-04 08:48] LABS: ALB/GLOB RATIO 1.1 (1.0-2.1); ALT/SGPT 24 U/L (9-52); AST/SGOT 25 U/L (14-36); BLOOD UREA NITROGEN 24 mg/dL (7-17); CALCIUM 8.7 mg/dl (8.6-10.4); GFR NON-AFRICAN AMERICAN > 60
[2019-01-04 08:57] VITALS: RESP 20
[2019-01-04] MEDS: Sucralfate 1 gm/10 ml Oral Susp UD PO SCH ×4 (09:40→18:10)
[2019-01-04] MEDS: Potassium Chloride 10 mEq ER Tab PO SCH (09:42)
[2019-01-04] MEDS: guaiFENesin 600 mg ER Tab PO SCH ×2 (09:43→18:12)
[2019-01-04] MEDS: Metoprolol Succinate 25 mg XL Tab PO SCH (09:43)
[2019-01-04] MEDS: diltiaZEM 120 mg/24 Hours CD Cap PO SCH (09:43)
[2019-01-04] MEDS ORDERED: Potassium Chloride 20 mEq/15 ml LIQ UD PO ONE ×2 (10:00)
--- NOTE | 2019-01-04 14:13 | CP.PCM.PN ---
Subjective - Date & Time of Evaluation Date of Evaluation: 01/04/19 Time of Evaluation: 14:10 - Subjective Subjective: Neuro Follow-Up Note: Mrs. Humphreys was evaluated this afternoon at bedside. Pt states that she had dizziness this morning that started with her "heart racing" this morning. She denied having chest pain, but states she felt sob as well, though the sob is relieved by supplement oxygen via NC. She also c/o feeling swollen "all ove r" but there doesn't appear to be any significant swelling to me. She is anxious. She has right sided weakness residual from a previous CVA. There is a concern for malingering, as the pt asked me several times to not be d/c home today. Otherwise, she currently denies h/a, visual changes, chest pain, palpitations, sob, cough, abd pain, n/v/d, paresthesias, fever/chills. Objective - Vital Signs/Intake and Output Vital Signs (last 24 hours): Temp Pulse Resp BP Pulse Ox 97.9 F 82 20 96/51 L 97 01/04/19 07:15 01/04/19 08:00 01/04/19 07:15 01/04/19 07:15 01/04/19 13:06 Intake and Output: 01/04/19 01/04/19 06:59 18:59 Intake Total 400 Balance 400 - Medications Medications: Current Medications Acetaminophen (Tylenol 325mg Tab) 650 mg PO Q6 PRN PRN Reason: Headache Last Admin: 01/02/19 22:36 Dose: 650 mg Aspirin (Aspirin Chewable) 81 mg PO DAILY [facility] Last Admin: 01/04/19 09:44 Dose: 81 mg Clonazepam (Klonopin) 1 mg PO TID [facility] Last Admin: 01/04/19 09:35 Dose: 1 mg Clopidogrel Bisulfate (Plavix) 75 mg PO DAILY [facility] Last Admin: 01/04/19 09:42 Dose: 75 mg Diltiazem HCl (Cardizem Cd) 120 mg PO DAILY [facility] Last Admin: 01/04/19 09:43 Dose: 120 mg Gabapentin (Neurontin) 100 mg PO TID [facility] Last Admin: 01/04/19 09:42 Dose: 100 mg Guaifenesin (Mucinex La) 600 mg PO BID [facility] Last Admin: 01/04/19 09:43 Dose: 600 mg Heparin Sodium (Porcine) (Heparin) 5,000 units SC Q12 [facility] Last Admin: 01/04/19 09:46 Dose: 5,000 units Hydrochlorothiazide (Hydrodiuril) 25 mg PO DAILY [facility] Last Admin: 01/04/19 09:48 Dose: Not Given Hydroxyzine HCl (Atarax) 25 mg PO TID [facility] Last Admin: 01/04/19 14:04 Dose: Not Given Losartan Potassium (Cozaar) 100 mg PO DAILY [facility] Last Admin: 01/04/19 09:42 Dose: 100 mg Metformin HCl (Glucophage) 500 mg PO DAILY [facility] Last Admin: 01/03/19 11:13 Dose: Not Given Metoprolol Succinate (Toprol Xl) 25 mg PO DAILY [facility] Last Admin: 01/04/19 09:43 Dose: 25 mg Montelukast Sodium (Singulair) 10 mg PO HS [facility] Last Admin: 01/03/19 22:18 Dose: 10 mg Potassium Chloride (Klor-Con 10) 10 meq PO DAILY [facility] Last Admin: 01/04/19 09:42 Dose: 10 meq Rosuvastatin Calcium (Crestor) 10 mg PO HS [facility] Last Admin: 01/03/19 22:19 Dose: 10 mg Sucralfate (Carafate Oral Susp) 1 gm PO TID [facility] Last Admin: 01/04/19 09:40 Dose: 1 gm Temazepam (Restoril) 15 mg PO HS PRN PRN Reason: Insomnia Last Admin: 01/02/19 21:15 Dose: 15 mg - Labs Labs: 01/04/19 08:17 01/04/19 08:17 PT 11.7 SECONDS (9.7-12.2) 01/02/19 11:58 INR 1.1 01/02/19 11:58 APTT 31.7 SECONDS (21-34) 01/02/19 11:58 - Constitutional Appears: Well, Non-toxic - Head Exam Head Exam: ATRAUMATIC, NORMAL INSPECTION, NORMOCEPHALIC - Eye Exam Eye Exam: EOMI, Normal appearance, PERRL. absent: Nystagmus Pupil Exam: NORMAL ACCOMODATION, PERRL - ENT Exam ENT Exam: Mucous Membranes Moist, Normal Exam - Neck Exam Neck Exam: Full ROM, Normal Inspection - Respiratory Exam Respiratory Exam: NORMAL BREATHING PATTERN - Cardiovascular Exam Cardiovascular Exam: Tachycardia (110 on the tele mx) - GI/Abdominal Exam Additional comments: Obese - Extremities Exam Extremities Exam: Normal Inspection. absent: Full ROM Additional comments: Right sided weakness residual from previous CVA. - Back Exam Back Exam: Full ROM - Neurological Exam Neurological Exam: Alert, Awake, CN II-XII Intact, Oriented x3, Reflexes Normal Neuro motor strength exam: Left Upper Extremity: 5 (distal 5/5), Right Upper Extremity: 3 (distal 2/5), Left Lower Extremity: 5 (distal 5/5), Right Lower Extremity: 3 (distal 1-2/5) Additional comments: AAOx3; follows all commands No dysarthria or aphasia Has right sided weakness residual from previous CVA; no deficits to the left si de. Sensation intact No tremors or abnormal movements. Gait not assessed; PT notes reviewed. - Psychiatric Exam Additional comments: periods of anxiety (has a h/o) - Skin Skin Exam: Dry, Intact, Normal Color Assessment and Plan (1) Dizziness Assessment & Plan: Imaging reviewed: -CT Head repeat (01/04/19): No acute intracranial hemorrhage. Chronic microvascular ischemic change. Focal areas of low attenuation in the left frontal subcortical white matter as well as the posterior right frontal subcortical white matter as described above which may represent age-i ndeterminate ischemic change. If symptoms persist, or there is persistent concern for acute ischemic change, consider correlation with diffusion-weighted MRI. -CT Head (01/02/19): No acute intracranial hemorrhage. Minor chronic periventricular white matter ischemic changes with scattered subcortical and slightly deeper ischemic changes. Note the possibility of a small hyperacute infarct cannot be excluded on this exam. Mild moderate generalized volume loss. -CTA Head and Neck (01/02/19): No evidence of dissection, occlusion or significant stenosis involving the cervical or intra cerebral vasculature as described. -Continue ASA 81 mg PO daily with Plavix 75 mg PO daily x3 weeks, then continue Plavix 75 mg PO daily indefinitely. -Continue Statin. -Continue PT/OT. -Continue management and treatment of secondary stroke risk factors. -Cardiology on case; pt follows up with Dr. Samuel Alford as outpatient. -Pt is neurologically stable for d/c. She can f/u with neuro in the office within 1 month. We can arrange for her to have an outpatient open MRI Brain done. Thank you for this consultation. Reconsult prn. Kimberly Sotelo DNP, [employer] d/w Dr Gama Status: Acute
--- NOTE | 2019-01-04 19:14 | CP.PCM.PN ---
Subjective - Date & Time of Evaluation Date of Evaluation: 01/04/19 - Subjective Subjective: patient examined today no nausea no vomiting no dizziness no diarrhea no fever no shortness of breath Objective - Vital Signs/Intake and Output Vital Signs (last 24 hours): Temp Pulse Resp BP Pulse Ox 99.1 F 102 H 20 100/68 99 01/04/19 16:00 01/04/19 16:00 01/04/19 16:00 01/04/19 16:00 01/04/19 16:00 - Medications Medications: Current Medications Acetaminophen (Tylenol 325mg Tab) 650 mg PO Q6 PRN PRN Reason: Headache Last Admin: 01/02/19 22:36 Dose: 650 mg Aspirin (Aspirin Chewable) 81 mg PO DAILY [facility] Last Admin: 01/04/19 09:44 Dose: 81 mg Clonazepam (Klonopin) 1 mg PO TID [facility] Last Admin: 01/04/19 18:11 Dose: 1 mg Clopidogrel Bisulfate (Plavix) 75 mg PO DAILY [facility] Last Admin: 01/04/19 09:42 Dose: 75 mg Diltiazem HCl (Cardizem Cd) 120 mg PO DAILY [facility] Last Admin: 01/04/19 09:43 Dose: 120 mg Gabapentin (Neurontin) 100 mg PO TID [facility] Last Admin: 01/04/19 18:11 Dose: 100 mg Guaifenesin (Mucinex La) 600 mg PO BID [facility] Last Admin: 01/04/19 18:12 Dose: Not Given Heparin Sodium (Porcine) (Heparin) 5,000 units SC Q12 [facility] Last Admin: 01/04/19 09:46 Dose: 5,000 units Hydrochlorothiazide (Hydrodiuril) 25 mg PO DAILY [facility] Last Admin: 01/04/19 09:48 Dose: Not Given Hydroxyzine HCl (Atarax) 25 mg PO TID [facility] Last Admin: 01/04/19 18:11 Dose: Not Given Losartan Potassium (Cozaar) 100 mg PO DAILY [facility] Last Admin: 01/04/19 09:42 Dose: 100 mg Metformin HCl (Glucophage) 500 mg PO DAILY [facility] Last Admin: 01/04/19 15:57 Dose: Not Given Metoprolol Succinate (Toprol Xl) 25 mg PO DAILY [facility] Last Admin: 01/04/19 09:43 Dose: 25 mg Montelukast Sodium (Singulair) 10 mg PO [facility] Last Admin: 01/03/19 22:18 Dose: 10 mg Potassium Chloride (Klor-Con 10) 10 meq PO DAILY [facility] Last Admin: 01/04/19 09:42 Dose: 10 meq Rosuvastatin Calcium (Crestor) 10 mg PO HS [facility] Last Admin: 01/03/19 22:19 Dose: 10 mg Sucralfate (Carafate Oral Susp) 1 gm PO TID [facility] Last Admin: 01/04/19 18:10 Dose: 1 gm Temazepam (Restoril) 15 mg PO HS PRN PRN Reason: Insomnia Last Admin: 01/02/19 21:15 Dose: 15 mg - Labs Labs: 01/04/19 08:17 01/04/19 08:17 PT 11.7 SECONDS (9.7-12.2) 01/02/19 11:58 INR 1.1 01/02/19 11:58 APTT 31.7 SECONDS (21-34) 01/02/19 11:58 - Constitutional Appears: Well - Head Exam Head Exam: ATRAUMATIC, NORMAL INSPECTION, NORMOCEPHALIC - Eye Exam Eye Exam: EOMI, Normal appearance, PERRL Pupil Exam: NORMAL ACCOMODATION, PERRL - ENT Exam ENT Exam: Mucous Membranes Moist, Normal Exam - Neck Exam Neck Exam: Full ROM, Normal Inspection. absent: Lymphadenopathy - Respiratory Exam Respiratory Exam: Decreased Breath Sounds - Cardiovascular Exam Cardiovascular Exam: REGULAR RHYTHM, +S1, +S2 - GI/Abdominal Exam GI & Abdominal Exam: Soft, Diminished Bowel Sounds - Rectal Exam Rectal Exam: Deferred - Neurological Exam Neurological Exam: Oriented x3 Assessment and Plan - Assessment and Plan (Free Text) Plan: aspirin chewable atarax carafate oral susp cardizem cd cozaar crestor glucophage heparin hydrodiuril klonopin klor-con muscinex la neurontin plavix restoril singulair toprol xl tylenol plan discussed with patient moderate complexity of care medications reviewed labs reviewed vitals reviewed
--- NOTE | 2019-01-05 07:12 | CP.PCM.PN ---
Subjective - Date & Time of Evaluation Date of Evaluation: 01/05/19 Time of Evaluation: 07:09 - Subjective Subjective: PGY3 note for Dr Zuñiga's service Patient seen and examined at bedside. Nursing reports no acute events overnight. Patient reports having physical therapy this morning. She states she was able to walk ok, but "felt some leg heaviness" on the right side. Patient admits she does not "feel 100%" and is concerned because she was "tachycardic yesterday." She states she was febrile yesterday, but there is no documentation in the EMR. Denies chest pain or SOB, but states she feels "occasional palpitations." Objective - Vital Signs/Intake and Output Vital Signs (last 24 hours): Temp Pulse Resp BP Pulse Ox 98.4 F 103 H 20 112/76 95 01/05/19 04:26 01/05/19 04:26 01/05/19 04:26 01/05/19 04:26 01/05/19 04:26 - Medications Medications: Current Medications Acetaminophen (Tylenol 325mg Tab) 650 mg PO Q6 PRN PRN Reason: Headache Last Admin: 01/02/19 22:36 Dose: 650 mg Aspirin (Aspirin Chewable) 81 mg PO DAILY [facility] Last Admin: 01/04/19 09:44 Dose: 81 mg Clonazepam (Klonopin) 1 mg PO TID [facility] Last Admin: 01/04/19 18:11 Dose: 1 mg Clopidogrel Bisulfate (Plavix) 75 mg PO DAILY [facility] Last Admin: 01/04/19 09:42 Dose: 75 mg Diltiazem HCl (Cardizem Cd) 120 mg PO DAILY [facility] Last Admin: 01/04/19 09:43 Dose: 120 mg Gabapentin (Neurontin) 100 mg PO TID [facility] Last Admin: 01/04/19 18:11 Dose: 100 mg Guaifenesin (Mucinex La) 600 mg PO BID [facility] Last Admin: 01/04/19 18:12 Dose: Not Given Heparin Sodium (Porcine) (Heparin) 5,000 units SC Q12 [facility] Last Admin: 01/04/19 21:50 Dose: 5,000 units Hydrochlorothiazide (Hydrodiuril) 25 mg PO DAILY [facility] Last Admin: 01/04/19 09:48 Dose: Not Given Hydroxyzine HCl (Atarax) 25 mg PO TID [facility] Last Admin: 01/04/19 18:11 Dose: Not Given Losartan Potassium (Cozaar) 100 mg PO DAILY [facility] Last Admin: 01/04/19 09:42 Dose: 100 mg Metformin HCl (Glucophage) 500 mg PO DAILY [facility] Last Admin: 01/04/19 15:57 Dose: Not Given Metoprolol Succinate (Toprol Xl) 25 mg PO DAILY [facility] Last Admin: 01/04/19 09:43 Dose: 25 mg Montelukast Sodium (Singulair) 10 mg PO [facility] Last Admin: 01/04/19 21:50 Dose: 10 mg Potassium Chloride (Klor-Con 10) 10 meq PO DAILY [facility] Last Admin: 01/04/19 09:42 Dose: 10 meq Rosuvastatin Calcium (Crestor) 10 mg PO [facility] Last Admin: 01/04/19 21:50 Dose: 10 mg Sucralfate (Carafate Oral Susp) 1 gm PO TID [facility] Last Admin: 01/04/19 18:10 Dose: 1 gm Temazepam (Restoril) 15 mg PO HS PRN PRN Reason: Insomnia Last Admin: 01/04/19 21:52 Dose: 15 mg - Labs Labs: 01/04/19 08:17 01/04/19 08:17 PT 11.7 SECONDS (9.7-12.2) 01/02/19 11:58 INR 1.1 01/02/19 11:58 APTT 31.7 SECONDS (21-34) 01/02/19 11:58 - Additional Findings Additional findings: - Head Exam Head Exam: ATRAUMATIC, NORMAL INSPECTION, Excess body habitus noted - Eye Exam Eye Exam: Normal appearance Pupil Exam: NORMAL ACCOMODATION, PERRL - ENT Exam ENT Exam: Mucous Membranes Moist, Normal Exam. absent: Normal External Ear Exam - Neck Exam Neck Exam: Normal Inspection - Respiratory Exam Respiratory Exam: Clear to Ausculation Bilateral, NORMAL BREATHING PATTERN. absent: Stridor - Cardiovascular Exam Cardiovascular Exam: REGULAR RHYTHM, Tachycardic; +S1, +S2. absent: Clicks, +S4, Murmur - GI/Abdominal Exam GI & Abdominal Exam: Soft, Normal Bowel Sounds. absent: Tenderness, Mass - Extremities Exam Extremities Exam: Normal Capillary Refill, Normal Inspection Right sided weakness residual from previous CVA - Back Exam Back Exam: absent: CVA tenderness (L), CVA tenderness (R) - Neurological Exam Neurological Exam: Alert, Awake, CN II-XII Intact, Oriented x3 - Psychiatric Exam Psychiatric exam: Normal Affect, Normal Mood - Skin Skin Exam: Dry, Intact, Normal Color, Warm Assessment and Plan - Assessment and Plan (Free Text) Plan: 58 year old female with past medical history of COPD , HTN, DM, CAD, previous stroke with residual right side weakness, GERD admitted to the hospital on 01/02 for dizziness. Plan: 1.Syncopal episode Head ct:No acute intracranial hemorrhage. Minor chronic periventricular white matter ischemic changes with scattered subcortical and slightly deeper ischemic changes. Note the possibility of a small hyperacute infarct cannot be excluded on this exam. Mild moderate generalized volume loss. Repeat head ct (01/04/19):No acute intracranial hemorrhage. Chronic microvascular ischemic change. Focal areas of low attenuation in the left frontal subcortical white matter as well as the posterior right frontal subcortical white matter as described above which may represent age-indeterminate ischemic change. If symptoms persist, or there is persistent concern for acute ischemic change, consider correlation with diffusion-weighted MRI. Head/neck CTA:No evidence of dissection, occlusion or significant stenosis involving the cervical or intra cerebral vasculature as described. Neurology Dr. Gama consulted--> Help appreciated 1. Start plavix 75 mg PO Daily 2. D/c ASA 325, start ASA 81 mg po daily 3. will continue plavix and ASA for 3 weeks, then stop ASA 4. Continue Crestor 10 mg PO HS 5. repeat CT head w/o contrast tomorrow 6. PT/OT Medications: Aspirin 81mg PO DAILY Plavix 75mg PO DAILY 2. hx of Hypertension -Continue Losartan 100mg PO DAILY -Continue Hydrochlorothiazide 25mg PO DAILY 3. hx of Atrial fibrillation -s/p Ablation -Continue Caridzem 120mg PO DAILY -Continue Metoprolol 25mg PO DAILY 4.hx of Hyperlipidemia -Cotinue Rosuvastatin 10mg PO HS 5.hx of Diabetes Mellitus -Contiue Metformin 500mg PO DAILY 6.hx of Anxiety -Continue Klonopin 1mg PO TID -Cotoniue Atarax 25mg PO TID 7.hx of COPD -Continue Singuilari 10mg PO HS 8. hx of Insomnia -Cotinue Restoril 15mg PO HS PRN 9.Hypokalemis -Repleted. Will monitor with repeat CMP. PPX -Heparin -GI ppx not indicated at this time. Disposition: Pt for discharge tomorrow AM per Dr Raz Zuñiga. She will continue to take ASA 81mg po daily and plavix 75mg PO Daily x 3 weeks, and Crestor 10mg PO HS per neuro recommendation. She should make appointment to f/u w/ Dr. Gama/Selvin in 1 months time. Plan discussed with Attending Dr. Chairez
[2019-01-05 07:53] LABS: BASO % 0.5 % (0.0-2.0); EOS # 0.5 K/uL (0.0-0.7); EOS % 6.7 % (0.0-4.0); HEMOGLOBIN 10.3 g/dL (11.0-16.0); LYMPH # 1.5 K/uL (1.0-4.3); LYMPH % 20.4 % (20.0-40.0); MEAN CELL VOLUME 75.9 fL (81.0-99.0); MEAN CORPUSCULAR HEMOGLOBIN 24.7 pg (27.0-31.0); MEAN CORPUSCULAR HGB CONC 32.5 g/dL (33.0-37.0); MEAN PLATELET VOLUME 8.8 fL (7.2-11.7); MONO # 0.5 K/uL (0.0-0.8); MONO % 6.8 % (0.0-10.0); NEUT # 4.8 K/uL (1.8-7.0); NEUT % 65.6 % (50.0-75.0); NRBC % 0.1 % (0.0-2.0); RBC 4.17 Mil/uL (3.80-5.20); RED CELL DISTRIBUTION WIDTH 17.6 % (11.5-14.5); WHITE BLOOD COUNT 7.3 K/uL (4.8-10.8)
[2019-01-05 08:06] LABS: ALB/GLOB RATIO 1.1 (1.0-2.1); ALBUMIN 3.6 g/dL (3.5-5.0); ALT/SGPT 24 U/L (9-52); AST/SGOT 20 U/L (14-36); BLOOD UREA NITROGEN 21 mg/dL (7-17); GFR NON-AFRICAN AMERICAN 57
[2019-01-05] MEDS: Sucralfate 1 gm/10 ml Oral Susp UD PO SCH ×3 (09:39→17:47)
[2019-01-05] MEDS: diltiaZEM 120 mg/24 Hours CD Cap PO SCH (09:40)
[2019-01-05] MEDS: Potassium Chloride 10 mEq ER Tab PO SCH (09:41)
[2019-01-05] MEDS: guaiFENesin 600 mg ER Tab PO SCH ×2 (09:41→17:47)
[2019-01-05] MEDS: Metoprolol Succinate 25 mg XL Tab PO SCH (09:42)
--- NOTE | 2019-01-05 19:34 | CP.PCM.PN ---
Subjective - Date & Time of Evaluation Date of Evaluation: 01/05/19 - Subjective Subjective: patient examined today no nausea no vomiting no dizziness no diarrhea no fever no shortness of breath Objective - Vital Signs/Intake and Output Vital Signs (last 24 hours): Temp Pulse Resp BP Pulse Ox 98.7 F 78 20 116/73 97 01/05/19 15:00 01/05/19 16:25 01/05/19 15:00 01/05/19 15:00 01/05/19 16:25 - Medications Medications: Current Medications Acetaminophen (Tylenol 325mg Tab) 650 mg PO Q6 PRN PRN Reason: Headache Last Admin: 01/02/19 22:36 Dose: 650 mg Aspirin (Aspirin Chewable) 81 mg PO DAILY [facility] Last Admin: 01/05/19 09:39 Dose: 81 mg Clonazepam (Klonopin) 1 mg PO TID [facility] Last Admin: 01/05/19 17:47 Dose: 1 mg Clopidogrel Bisulfate (Plavix) 75 mg PO DAILY [facility] Last Admin: 01/05/19 09:41 Dose: 75 mg Diltiazem HCl (Cardizem Cd) 120 mg PO DAILY [facility] Last Admin: 01/05/19 09:40 Dose: 120 mg Gabapentin (Neurontin) 100 mg PO TID [facility] Last Admin: 01/05/19 17:47 Dose: 100 mg Guaifenesin (Mucinex La) 600 mg PO BID [facility] Last Admin: 01/05/19 17:47 Dose: 600 mg Heparin Sodium (Porcine) (Heparin) 5,000 units SC Q12 [facility] Last Admin: 01/05/19 09:41 Dose: 5,000 units Hydrochlorothiazide (Hydrodiuril) 25 mg PO DAILY [facility] Last Admin: 01/05/19 09:49 Dose: 25 mg Hydroxyzine HCl (Atarax) 25 mg PO TID [facility] Last Admin: 01/05/19 17:48 Dose: Not Given Losartan Potassium (Cozaar) 100 mg PO DAILY [facility] Last Admin: 01/05/19 09:40 Dose: 100 mg Metformin HCl (Glucophage) 500 mg PO DAILY [facility] Last Admin: 01/05/19 09:40 Dose: Not Given Metoprolol Succinate (Toprol Xl) 25 mg PO DAILY [facility] Last Admin: 01/05/19 09:42 Dose: 25 mg Montelukast Sodium (Singulair) 10 mg PO [facility] Last Admin: 01/04/19 21:50 Dose: 10 mg Potassium Chloride (Klor-Con 10) 10 meq PO DAILY [facility] Last Admin: 01/05/19 09:41 Dose: 10 meq Rosuvastatin Calcium (Crestor) 10 mg PO HS [facility] Last Admin: 01/04/19 21:50 Dose: 10 mg Sucralfate (Carafate Oral Susp) 1 gm PO TID [facility] Last Admin: 01/05/19 17:47 Dose: 1 gm Temazepam (Restoril) 15 mg PO HS PRN PRN Reason: Insomnia Last Admin: 01/04/19 21:52 Dose: 15 mg - Labs Labs: 01/05/19 07:43 01/05/19 07:43 PT 11.7 SECONDS (9.7-12.2) 01/02/19 11:58 INR 1.1 01/02/19 11:58 APTT 31.7 SECONDS (21-34) 01/02/19 11:58 - Constitutional Appears: Well - Head Exam Head Exam: ATRAUMATIC, NORMAL INSPECTION, NORMOCEPHALIC - Eye Exam Eye Exam: EOMI, Normal appearance, PERRL Pupil Exam: NORMAL ACCOMODATION, PERRL - ENT Exam ENT Exam: Mucous Membranes Moist, Normal Exam - Neck Exam Neck Exam: Full ROM, Normal Inspection. absent: Lymphadenopathy - Respiratory Exam Respiratory Exam: Decreased Breath Sounds - Cardiovascular Exam Cardiovascular Exam: REGULAR RHYTHM, +S1, +S2 - GI/Abdominal Exam GI & Abdominal Exam: Soft, Diminished Bowel Sounds - Rectal Exam Rectal Exam: Deferred - Neurological Exam Neurological Exam: Oriented x3 Assessment and Plan - Assessment and Plan (Free Text) Plan: plan discussed with patient moderate complexity of care medications reviewed labs reviewed vitals reviewed aspirin chewable atarax carafate oral susp cardizem cd cozaar crestor glucophage heparin hydrodiuril klonopin klor-con muscinex la neurontin plavix restoril singulair toprol xl tylenol
[2019-01-06 01:31] VITALS: PULSE 86
[2019-01-06] MEDS: Sucralfate 1 gm/10 ml Oral Susp UD PO SCH ×2 (06:14→09:02)
--- NOTE | 2019-01-06 07:10 | CP.PCM.PN ---
Subjective - Date & Time of Evaluation Date of Evaluation: 01/06/19 Time of Evaluation: 07:09 - Subjective Subjective: Progress note for Dr. Raz Zuñiga Patient was seen and examined at bedside in no acute distress. Patient reports feeling weak, has abdoimnal pain and gas. She says she had a small hard BM a few days ago. She denies chest pain, palpitations, n/v, fevers, shortness of breath. No acute events overnight. Objective - Vital Signs/Intake and Output Vital Signs (last 24 hours): Temp Pulse Resp BP Pulse Ox 98.2 F 86 20 93/52 L 96 01/05/19 23:00 01/05/19 23:00 01/05/19 23:00 01/05/19 23:00 01/05/19 23:00 - Medications Medications: Current Medications Acetaminophen (Tylenol 325mg Tab) 650 mg PO Q6 PRN PRN Reason: Headache Last Admin: 01/02/19 22:36 Dose: 650 mg Aspirin (Aspirin Chewable) 81 mg PO DAILY [facility] Last Admin: 01/05/19 09:39 Dose: 81 mg Clonazepam (Klonopin) 1 mg PO TID [facility] Last Admin: 01/05/19 17:47 Dose: 1 mg Clopidogrel Bisulfate (Plavix) 75 mg PO DAILY [facility] Last Admin: 01/05/19 09:41 Dose: 75 mg Diltiazem HCl (Cardizem Cd) 120 mg PO DAILY [facility] Last Admin: 01/05/19 09:40 Dose: 120 mg Gabapentin (Neurontin) 100 mg PO TID [facility] Last Admin: 01/05/19 17:47 Dose: 100 mg Guaifenesin (Mucinex La) 600 mg PO BID [facility] Last Admin: 01/05/19 17:47 Dose: 600 mg Heparin Sodium (Porcine) (Heparin) 5,000 units SC Q12 [facility] Last Admin: 01/05/19 21:29 Dose: 5,000 units Hydrochlorothiazide (Hydrodiuril) 25 mg PO DAILY [facility] Last Admin: 01/05/19 09:49 Dose: 25 mg Hydroxyzine HCl (Atarax) 25 mg PO TID [facility] Last Admin: 01/05/19 17:48 Dose: Not Given Losartan Potassium (Cozaar) 100 mg PO DAILY [facility] Last Admin: 01/05/19 09:40 Dose: 100 mg Metformin HCl (Glucophage) 500 mg PO DAILY [facility] Last Admin: 01/05/19 09:40 Dose: Not Given Metoprolol Succinate (Toprol Xl) 25 mg PO DAILY [facility] Last Admin: 01/05/19 09:42 Dose: 25 mg Montelukast Sodium (Singulair) 10 mg PO HS [facility] Last Admin: 01/05/19 21:28 Dose: 10 mg Potassium Chloride (Klor-Con 10) 10 meq PO DAILY [facility] Last Admin: 01/05/19 09:41 Dose: 10 meq Rosuvastatin Calcium (Crestor) 10 mg PO HS [facility] Last Admin: 01/05/19 21:28 Dose: 10 mg Sucralfate (Carafate Oral Susp) 1 gm PO TID [facility] Last Admin: 01/06/19 06:14 Dose: 1 gm Temazepam (Restoril) 15 mg PO HS PRN PRN Reason: Insomnia Last Admin: 01/05/19 21:28 Dose: 15 mg - Labs Labs: 01/05/19 07:43 01/05/19 07:43 PT 11.7 SECONDS (9.7-12.2) 01/02/19 11:58 INR 1.1 01/02/19 11:58 APTT 31.7 SECONDS (21-34) 01/02/19 11:58 - Constitutional Appears: No Acute Distress - Head Exam Head Exam: ATRAUMATIC, NORMAL INSPECTION - Eye Exam Eye Exam: EOMI, Normal appearance - ENT Exam ENT Exam: Mucous Membranes Moist - Respiratory Exam Respiratory Exam: Clear to Ausculation Bilateral, NORMAL BREATHING PATTERN. absent: Rhonchi, Wheezes, Respiratory Distress - Cardiovascular Exam Cardiovascular Exam: REGULAR RHYTHM, +S1, +S2 - GI/Abdominal Exam GI & Abdominal Exam: Soft, Tenderness (mild, diffuse), Normal Bowel Sounds. absent: Distended, Firm, Guarding - Extremities Exam Extremities Exam: Normal Inspection. absent: Pedal Edema, Tenderness - Neurological Exam Neurological Exam: Alert, Awake, Oriented x3 - Psychiatric Exam Psychiatric exam: Normal Mood - Skin Skin Exam: Dry, Normal Color, Warm Assessment and Plan - Assessment and Plan (Free Text) Plan: 58 year old female with past medical history of COPD , HTN, DM, CAD, previous stroke with residual right side weakness, GERD admitted to the hospital on 01/02 for dizziness. Syncopal episode Head ct:No acute intracranial hemorrhage. Minor chronic periventricular white matter ischemic changes with scattered subcortical and slightly deeper ischemic changes. Note the possibility of a small hyperacute infarct cannot be excluded on this exam.Mild moderate generalized volume loss. Repeat head ct (01/04/19):No acute intracranial hemorrhage. Chronic microvascular ischemic change. Focal areas of low attenuation in the left frontal subcortical white matter as well as the posterior right frontal subcortical white matter as described above which may represent age-indeterminate ischemic change. Head/neck CTA:No evidence of dissection, occlusion or significant stenosis involving the cervical or intra cerebral vasculature as described. *Neurology Dr. Gama consulted--> Help appreciated * Recommendations: Start plavix 75 mg PO Daily; D/c ASA 325 and start ASA 81 mg po daily; will continue plavix and ASA for 3 weeks, then stop ASA; Continue Crestor 10 mg PO HS; PT/OT Medications: * Aspirin 81mg PO DAILY * Plavix 75mg PO DAILY hx of Hypertension -Continue Losartan 100mg PO DAILY -Continue Hydrochlorothiazide 25mg PO DAILY hx of Atrial fibrillation -s/p Ablation -Continue Caridzem 120mg PO DAILY -Continue Metoprolol 25mg PO DAILY hx of Hyperlipidemia -Cotinue Rosuvastatin 10mg PO HS hx of Diabetes Mellitus -Contiue Metformin 500mg PO DAILY hx of Anxiety -Continue Klonopin 1mg PO TID -Cotoniue Atarax 25mg PO TID hx of COPD -Continue Singuilari 10mg PO HS hx of Insomnia -Cotinue Restoril 15mg PO HS PRN Hypokalemia -Repleted. Will monitor with repeat CMP. Constipation -Colace 100mg given once today PPX -Heparin -GI ppx not indicated at this time. Disposition: Upon discharge, the patient will continue to take ASA 81mg po daily and plavix 75mg PO Daily x 3 weeks, and Crestor 10mg PO HS per neuro re commendation. The patient should make appointment to f/u w/ Dr. Gama/Selvin in 1 month. Plan discussed with Dr. Contreras [place], PGY2
[2019-01-06 08:00] VITALS: BP 110/76; TEMP 97.8
[2019-01-06 08:26] VITALS: O2SAT 98
[2019-01-06] MEDS: diltiaZEM 120 mg/24 Hours CD Cap PO SCH (09:02)
[2019-01-06] MEDS: Metoprolol Succinate 25 mg XL Tab PO SCH (09:02)
[2019-01-06] MEDS: Potassium Chloride 10 mEq ER Tab PO SCH (09:02)
[2019-01-06] MEDS: guaiFENesin 600 mg ER Tab PO SCH (09:06)
== END 2019-01-06 10:50 | disposition home or self-care (01) ==
LOC: C.ER 10:45 → C.9E 11:48 → C.6T 12:02
PROVIDERS: ADMIT Internal Medicine Nephrology; ATTEND Internal Medicine Nephrology
DX: R42 Dizziness and giddiness (principal); Z87.891 Personal history of nicotine dependence; Z79.02 Long term (current) use of antithrombotics/antiplatelets; Z79.4 Long term (current) use of insulin; Z95.5 Presence of coronary angioplasty implant and graft; I25.10 Atherosclerotic heart disease of native coronary artery without angina pectoris; I11.0 Hypertensive heart disease with heart failure; I48.91 Unspecified atrial fibrillation; I50.9 Heart failure, unspecified; J44.9 Chronic obstructive pulmonary disease, unspecified; I69.253 Hemiplegia and hemiparesis following other nontraumatic intracranial hemorrhage affecting right non-dominant side
CPT/HCPCS: 36415; 70450; 70496; 70498; 71045; 80048; 80053; 80061; 82948; 83036; 83880; 84443; 84484; 85025; 85610; 85730; 86850; 86900; 93005; 97110; 97116; 97162; 97166; 97530; 97535; 99285; G0378; G8978; G8979; G8987; G8988; J1644; Q9967